=== PATIENT | male | born 1955 | race Caucasian/White ===

== ENCOUNTER 2016-06-27 14:47 | Inpatient (IN) | payer BC ==
--- NOTE | 2016-06-27 16:41 | PDOC ---
History of Present Illness - History of Present Illness Initial Comments: 06/27/16 17:18 Patient is a 61 year old male with significant medical hx of CAD, HTN, CHF, HLD , DM, cellulitis, and osteomyelitis, sent in by Dr. Alexander for admission for CHF. The patient complains of four weeks of worsening exertional dyspnea and an episode of chest pain. He states that his shortness of breath is also exacerbated when lying down at night. Yesterday the patient had an episode of chest pain that occurred while at rest and later resolved. The patient also complains of some increased lower extremity swelling. Denies fevers, chills, nausea, vomiting, abdominal pain, dizziness, cough, headache, or syncope. Patient was noted to have rising creatinine levels over the past year, from 1.2 to 2.2. PCP: Veda Alexander MD Social Hx: 5 pack per day smoker for most of his life, quit 18 months ago. Surgical Hx: gangrenous right second toe amputation <Christianne Edwards - Last Filed: 06/28/16 00:10> <Belia Ward - Last Filed: 06/29/16 02:43> - General Chief Complaint: Shortness of Breath Stated Complaint: SOB (PCP SENT) Time Seen by Provider: 06/27/16 16:36 Past History <Christianne Edwards - Last Filed: 06/28/16 00:10> - Past Medical History Anemia: No Asthma: No Cancer: No Cardiac Disorders: No CVA: No COPD: No CHF: No Dementia: No Diabetes: Yes GI Disorders: No Disorders: No HTN: Yes Hypercholesterolemia: Yes Liver Disease: No Seizures: No Thyroid Disease: No - Surgical History Abdominal Surgery: No Appendectomy: No Cardiac Surgery: No Cholecystectomy: No Lung Surgery: No Neurologic Surgery: No Orthopedic Surgery: No - Immunization History Immunization Up to Date: Yes - Psycho/Social/Smoking Cessation Hx Anxiety: No Suicidal Ideation: No Smoking Status: Yes Smoking History: Former smoker Have you smoked in the past 12 months: Yes Number of Cigarettes Smoked Daily: 10 Information on smoking cessation initiated: No 'Breaking Loose' booklet given: 04/10/15 Hx Alcohol Use: No Drug/Substance Use Hx: No Substance Use Type: None Hx Substance Use Treatment: No <Belia Ward - Last Filed: 06/29/16 02:43> - Past Medical History Allergies/Adverse Reactions: Allergies Allergy/AdvReac Type Severity Reaction Status Date / Time No Known Drug Allergies Allergy Verified 06/27/16 14:55 Home Medications: Ambulatory Orders Insulin (Novolog) [Novolog Flexpen -] 0 units SQ TIDAC #0 pen 08/07/13 Aspirin Coated [Ecotrin -] 81 mg PO DAILY tablet.ec 04/30/15 Canagliflozin [Invokana] 100 mg PO DAILY 06/28/16 Hydrochlorothiazide 25 mg PO DAILY 06/28/16 Insulin (Novolog 70/30) [Novolog Mix 70/30 Flexpen -] 40 units SQ BID 06/28/16 Lisinopril [Prinivil -] 40 mg PO DAILY 06/28/16 Metformin HCl 850 mg PO HS 06/28/16 Review of Systems - Review of Systems Comments:: 06/27/16 17:19 CONSTITUTIONAL: Absent: fever, chills, diaphoresis, generalized weakness, malaise, loss of appetite HEENT: Absent: rhinorrhea, nasal congestion, throat pain, throat swelling, difficulty swallowing, mouth swelling, ear pain, eye pain, visual changes CARDIOVASCULAR: Present: chest pain, peripheral edema Absent: syncope, palpitations, irregular heart rate, lightheadedness RESPIRATORY: Present: shortness of breath, dyspnea with exertion, orthopnea Absent: cough, wheezing, stridor, hemoptysis GASTROINTESTINAL: Absent: abdominal pain, abdominal distension, nausea, vomiting, diarrhea, constipation, melena, hematochezia GENITOURINARY: Absent: dysuria, frequency, urgency, hesitancy, hematuria, flank pain, genital pain MUSCULOSKELETAL: Absent: myalgia, arthralgia, joint swelling SKIN: Absent: rash, itching, pallor HEMATOLOGIC/IMMUNOLOGIC: Absent: easy bleeding, easy bruising, lymphadenopathy, frequent infections ENDOCRINE: Absent: unexplained weight gain, unexplained weight loss, heat intolerance, cold intolerance NEUROLOGIC: Absent: headache, focal weakness or paresthesia, dizziness, unsteady gait, seizure, mental status changes, bladder or bowel incontinence. PSYCHIATRIC: Absent: anxiety, depression, suicidal or homicidal ideation, hallucinations <Grace,Christianne - Last Filed: 06/28/16 00:10> *Physical Exam - Vital Signs Last Vital Signs Temp Pulse Resp BP Pulse Ox 97.7 F 94 H 18 128/82 100 06/27/16 14:55 06/27/16 14:55 06/27/16 14:55 06/27/16 14:55 06/27/16 14:55 - Physical Exam Comments: 06/27/16 17:20 GENERAL: Obese. Awake and alert. No acute distress. HEENT: Normocephalic, atraumatic. PERRLA, EOMI. No conjunctival pallor. Sclera are non- icteric. Moist mucous membranes. Oropharynx is clear. NECK: Supple. Full ROM. No JVD. Carotid pulses 2+ and symmetric, without bruits. No thyromegaly. No lymphadenopathy. CARDIOVASCULAR: Regular rate and rhythm. No murmurs, rubs, or gallops. Distal pulses are 2+ and symmetric. PULMONARY: No evidence of respiratory distress. Lungs clear to auscultation bilaterally. No wheezing, rales or rhonchi. ABDOMINAL: Protuberant. Soft. Non-tender. Non-distended. No rebound or guarding. No organomegaly. Normoactive bowel sounds. MUSCULOSKELETAL: Normal range of motion at all joints. No bony deformities or tenderness. No CVA tenderness. EXTREMITIES: Right foot second toe amputation. Wearing leg brace right leg for support. Left leg chronic venous stasis. Pitting edema lower extremities bilaterally. 4cm fluid filled bulla to the left lower extremity. SKIN: Warm and dry. Normal capillary refill. No rashes. No jaundice. NEUROLOGICAL: Alert, awake, appropriate. Cranial nerves 2-12 intact. Normal speech. Gait is normal without ataxia. PSYCHIATRIC: Cooperative. Good eye contact. Appropriate mood and affect. <Christianne Edwards - Last Filed: 06/28/16 00:10> - Vital Signs Last Vital Signs Temp Pulse Resp BP Pulse Ox 97.7 F 94 H 18 128/82 100 06/27/16 14:55 06/27/16 14:55 06/27/16 14:55 06/27/16 14:55 06/27/16 14:55 <Belia Ward - Last Filed: 06/29/16 02:43> Heart Score/ECG Review #1 06/27/16 20:53 Normal sinus rhythm at 80 bpm Right bundle branch block Inferior infarct, age undetermined Anterolateral infarct, age undetermined Abnormal ECG <Christianne Edwards - Last Filed: 06/28/16 00:10> ED Treatment Course - LABORATORY CBC & Chemistry Diagram: 06/27/16 17:20 06/27/16 17:20 - RADIOLOGY Radiograph Interpretation: 06/27/16 20:13 Chest X-Ray Impression: No acute cardiopulmonary disease is present. Reported By: Luis M Estrada MD <Christianne Edwards - Last Filed: 06/28/16 00:10> - LABORATORY CBC & Chemistry Diagram: 06/28/16 05:35 06/28/16 05:35 <Belia Ward - Last Filed: 06/29/16 02:43> Medical Decision Making - Medical Decision Making 06/29/16 02:41 61-year-old male referred to the emergency department for admission. Due to increasing dyspnea over the past month and reported chest pain one day prior to arrival. Upon arrival, he did not have any current chest pain Patient has significant history of diabetes, amputation of his right toes in the past, coronary artery disease Patient reported weight gain and increasing lower extremity edema. Chest x-ray shows some increased congestion. First troponin was positive. It was 0.84 Patient was admitted for management of congestive heart failure and to trend his cardiac enzymes <Belia Ward - Last Filed: 06/29/16 02:43> *DC/Admit/Observation/Transfer - Attestations Scribe Attestion: 06/27/16 17:28 Documentation prepared by Christianne Edwards, acting as mobile paramedical examiner for Belia Ward MD. <Christianne Edwards - Last Filed: 06/28/16 00:10> - Discharge Dispostion Admit: Yes <Belia Ward - Last Filed: 06/29/16 02:43> Diagnosis at time of Disposition: CKD (chronic kidney disease) stage 3, GFR 30-59 ml/min, Type 2 diabetes mellitus with peripheral neuropathy CHF (congestive heart failure) Qualifiers: Congestive heart failure type: unspecified congestive heart failure type Congestive heart failure chronicity: acute on chronic Qualified Code(s): I50.9 - Heart failure, unspecified Chest pain Qualifiers: Chest pain type: unspecified Qualified Code(s): R07.9 - Chest pain, unspecified - Referrals
[2016-06-27 17:33] LABS: BASOPHIL 0.9 % (0-2.0); EOSINOPHIL 4.3 % (0-4.5); MCH 27.8 pg (25.7-33.7); MCHC 32.5 g/dl (32.0-35.9); MEAN CELL VOLUME 85.8 fl (80-96); MEAN PLT VOLUME 9.2 fl (7.5-11.1); NEUTROPHILS 70.6 % (42.8-82.8); PLATELET COUNT 253 K/MM3 (134-434); RDW 15.1 % (11.9-15.9); WHITE BLOOD COUNT 10.7 K/mm3 (4.0-10.0)
[2016-06-27 17:58] LABS: ALBUMIN 3.7 g/dl (3.4-5.0); BILIRUBIN,TOTAL 0.3 mg/dL (0.2-1.0); COCKROFT - GAULT 69.82; CREATININE 1.9 mg/dL (0.7-1.3); TOT PROT 7.5 g/dl (6.4-8.2)
[2016-06-27 18:13] LABS: INR 1.01 (0.82-1.09); PROTHROMBIN TIME (PATIENT) 11.1 SEC (9.98-11.88)
[2016-06-27 18:21] LABS: TROPONIN I 0.84 ng/ml (0.00-0.05)
[2016-06-27] MEDS ORDERED: ASPIRIN 81 MG CHEWABLE TABLETS PO ONE (19:02)
[2016-06-27] MEDS ORDERED: ASPIRIN 325 MG TABLET ONE (19:37)
[2016-06-27] MEDS ORDERED: ACETAMINOPHEN 325 MG TABLET (FP) PO PRN (19:58)
[2016-06-27] MEDS ORDERED: SILVER SULFADIAZINE 1% TOP CREAM 50 GM JAR TP ONE (20:58)
[2016-06-27] MEDS ORDERED: ATORVASTATIN CA 80 MG TABLET (FP) ONE (22:18)
[2016-06-27] MEDS: ATORVASTATIN CA 80 MG TABLET (FP) PO SCH (22:28)
[2016-06-27] MEDS: INSULIN SLIDING SCALE (NOVOLOG) 1 VIAL SQ SCH (22:29)
[2016-06-27] MEDS ORDERED: INSULIN (NOVOLOG) ASPART 100 UNITS/ML 10ML VIAL ONE (22:30)
[2016-06-28] MEDS ORDERED: METOPROLOL TARTRATE 25 MG TABLET (FP) PO ONE (00:30)
[2016-06-28] MEDS ORDERED: HEPARIN NA (PORCINE) 5,000 UNITS/ML 1ML VIAL IVPUSH ONE (00:30)
[2016-06-28] MEDS ORDERED: HEPARIN NA (PORCINE) 5,000 UNITS/ML 1ML VIAL IVPUSH PRN ×2 (00:30)
[2016-06-28 01:00] VITALS: BMI 43.4
[2016-06-28] MEDS ORDERED: PNEUMOC 13-VAL CONJ-DIP CRM/PF 0.5 ML DISP.SYRIN IM ONE (01:00)
[2016-06-28] MEDS: HEPARIN INFUSION - 500 ML IVPB SCH ×2 (01:09→10:04)
[2016-06-28 01:10] LABS: TROPONIN I 0.85 ng/ml (0.00-0.05)
[2016-06-28] MEDS ORDERED: HEPARIN NA (PORCINE) 5,000 UNITS/ML 1ML VIAL SQ SCH (02:00)
[2016-06-28] MEDS: INSULIN SLIDING SCALE (NOVOLOG) 1 VIAL SQ SCH ×4 (06:31→21:54)
[2016-06-28] MEDS ORDERED: INSULIN (NOVOLOG MIX 70/30) 100 UNITS/ML MDV SQ SCH (07:00)
[2016-06-28 07:12] LABS: BASOPHIL 0.7 % (0-2.0); EOSINOPHIL 5.7 % (0-4.5); MCH 28.2 pg (25.7-33.7); MCHC 32.8 g/dl (32.0-35.9); MEAN CELL VOLUME 86.1 fl (80-96); MEAN PLT VOLUME 9.3 fl (7.5-11.1); NEUTROPHILS 65.7 % (42.8-82.8); PLATELET COUNT 222 K/MM3 (134-434); RDW 14.8 % (11.9-15.9); WHITE BLOOD COUNT 9.5 K/mm3 (4.0-10.0)
[2016-06-28 08:53] LABS: CALCIUM 8.9 mg/dL (8.5-10.1); COCKROFT - GAULT 76.81; CREATININE 1.9 mg/dL (0.7-1.3); MAGNESIUM 2.3 mg/dL (1.8-2.4); PHOSPHOROUS 4.2 mg/dL (2.5-4.9)
[2016-06-28 09:03] LABS: TROPONIN I 0.55 ng/ml (0.00-0.05)
[2016-06-28] MEDS ORDERED: PT OWN MED DRAWER 7, Y5N ONE ×2 (09:19→20:57)
[2016-06-28] MEDS: ASPIRIN COATED 81 MG TABLET.EC PO SCH (09:37)
[2016-06-28] MEDS: PANTOPRAZOLE 40 MG TABLET (FP) PO SCH (09:37)
[2016-06-28] MEDS ORDERED: FUROSEMIDE 40 MG TABLET (FP) PO SCH (10:00)
[2016-06-28] MEDS ORDERED: CLOPIDOGREL BISULFATE 75 MG TABLET (FP) PO SCH (10:00)
--- NOTE | 2016-06-28 10:47 | CON.CARD ---
Cardiology Consult (text) - Consultation Consultation Note: Chief Complaint: CP History of Present Illness: 61 yo with h/o HTN, HL, CAD s/p medically managed nstemi 2016 in setting of sepsis/wound infection, IDDM, followed by dr christie for DM neuropathy and wounds, PAD s/p LE stent and rt forefoot amputation, here with sob. Was lost to follow up after admit last year. Reestablished with a new PCP yesterday who sent him to the ER for further eval. + LE edema with weight gain progressive over months. Recent development of bullae, weeping, erythema. + sob, orthopnea progressive over the past few weeks. no cp, palps, dizziness, early satiety, abdominal distension, bleeding. + dry cough no f/c/s, n/v/d, nasal congestion, h/a. PMH/PSHx: per hpi, H/O osteomyelitis, toe amputation, corneal transplants social hx: 5 pack per day smoker for most of his life, quit 18 months ago. fam hx: Acute myocardial infarction Father of ID in 70s. Mother of ID at 69eg ros: per hpi Ambulatory Orders Insulin (Novolog) [Novolog Flexpen -] 0 units SQ TIDAC #0 pen 08/07/13 Aspirin Coated [Ecotrin -] 81 mg PO DAILY tablet.ec 04/30/15 Canagliflozin [Invokana] 100 mg PO DAILY 06/28/16 Hydrochlorothiazide 25 mg PO DAILY 06/28/16 Insulin (Novolog 70/30) [Novolog Mix 70/30 Flexpen -] 40 units SQ BID 06/28/16 Lisinopril [Prinivil -] 40 mg PO DAILY 06/28/16 Metformin HCl 850 mg PO HS 06/28/16 Current Medications Acetaminophen (Tylenol -) 650 mg PO Q4H PRN PRN Reason: FEVER OR PAIN Aspirin (Ecotrin -) 81 mg PO DAILY [facility] Last Admin: 06/28/16 09:37 Dose: 81 mg Atorvastatin Calcium (Lipitor -) 80 mg PO HS [facility] Last Admin: 06/27/16 22:28 Dose: 80 mg Clopidogrel Bisulfate (Plavix -) 75 mg PO DAILY [facility] Last Admin: 06/28/16 09:37 Dose: 75 mg Furosemide (Lasix -) 40 mg PO DAILY [facility] Last Admin: 06/28/16 09:37 Dose: 40 mg Heparin Sodium (Porcine) (Heparin -) 5,000 unit IVPUSH PRN PRN Last Admin: 06/28/16 10:01 Dose: 5,000 unit Heparin Sodium (Porcine) (Heparin -) 1,000 unit IVPUSH PRN PRN Heparin Sodium/Dextrose (Heparin Infusion -) 500 mls @ 20 mls/hr IVPB TITR IGGY ; 1,000 UNITS/HR PRN Reason: Protocol Last Admin: 06/28/16 10:04 Dose: 23 mls/hr Insulin Aspart (Novolog Vial Sliding Scale -) 1 vial SQ ACHS IGGY PRN Reason: Protocol Last Admin: 06/28/16 06:31 Dose: Not Given Insulin Aspart (Novolog Mix 70/30 Vial) 20 units SQ BIDAC IGGY Last Admin: 06/28/16 06:29 Dose: 20 units Pantoprazole Sodium (Protonix -) 40 mg PO DAILY [facility] Last Admin: 06/28/16 09:37 Dose: 40 mg Vital Signs - 24 hr 06/27/16 06/27/16 06/28/16 14:55 22:37 00:34 Temperature 97.7 F 97.6 F 97.6 F Pulse Rate 94 H 86 Pulse Rate [ 74 Right Radial] Respiratory 18 22 18 Rate Blood Pressure 128/82 144/92 Blood Pressure 130/70 [Right Arm] O2 Sat by Pulse 100 93 L 94 L Oximetry (%) 06/28/16 06/28/16 06:00 10:00 Temperature 97.7 F 98 F Pulse Rate 87 83 Pulse Rate [ Right Radial] Respiratory 18 20 Rate Blood Pressure 113/71 130/84 Blood Pressure [Right Arm] O2 Sat by Pulse Oximetry (%) Intake & Output 06/26/16 06/27/16 06/28/16 06/29/16 07:59 07:59 07:59 07:59 Intake Total 120 600 Balance 120 600 Weight 286 lb NAD, calm jvd tds, neck supple bibasilar rales, nl effort RRR nl s1, s2 no mrg + bs soft nt nd obese ext with 1+ edema to thigh venous stasis changes, bulla s/p LE amputation diminished LE pulses aaox3 no jaundice, diaphoresis CBC, BMP 06/28/16 05:35 06/28/16 05:35 Laboratory Tests 06/27/16 06/27/1617 17:20 17:20 17:20 Total Bilirubin 0.3 AST 19 D Alkaline Phosphatase 63 D Creatine Kinase 258 D Creatine Kinase Index 2.8 CK-MB (CK-2) 7.102 H Troponin I 0.84 H* D B-Natriuretic Peptide 1403.01 H Albumin 3.7 D 06/27/16 06/28/16 23:58 05:35 Total Bilirubin AST Alkaline Phosphatase Creatine Kinase 259 256 Creatine Kinase Index CK-MB (CK-2) Troponin I 0.85 H* 0.55 H D B-Natriuretic Peptide Albumin EKG: SR, RBBB, bline inferolateral q waves. no acute ischemic changes. tele: SR occ pvc CXR: report and images reviewed. bilateral increased interstitial lung markings. by my review also trace fluid in fissure, possible mild congestion. 06/2016 echo here: tds. Nl lv size/fn. RV not well seen. nl valves. 04/2015 echo [facility]: tds. nl lv/rv. 1+ mr 04/2015 dipyridamole stress [facility]: stach with RBBB, no further ekg changes. mod fixed apical defect with partial reversibility --> mod apical infarct with small area of periinfarct ischemia. inferobasal defect thought to be 2/2 attenuation. mild global HK, apical AK. EF 46% 61 yo with h/o HTN, HL, CAD s/p medically managed nstemi 2016 in setting of sepsis/wound infection, IDDM, followed by dr christie for DM neuropathy and wounds, PAD s/p LE stent and rt forefoot amputation, here with sob. CAD - prior history of medically managed nstemi 2016 (peak troponin 4) in setting of sepsis/wound infection. at that time cath was deferred due to active underlying infection - here with very mild troponin elevation (peak 0.85) in setting of renal disease with flat trend. Known underlying CAD. Not consistent with ACS. EKG without acute ischemic changes. No anginal sx's. OK to stop heparin and plavix. - con't asa, statin. start bb. - Once patient diuresed, would repeat stress test for risk stratification. Unclear at this time whether patient would be able to comply with DAPT, but if patient has 3vd may benefit from bypass. diastolic HF exacerbation - + volume overload, predominantly right sided congestion. In past diuresed with lasix 40 mg IV bid --> will initiate same regimen. - daily weights, bmp, i/o's. - monitor cr with diuresis. PAD s/p LE stent and rt forefoot amputation - con't asa, statin HTN - adding metoprolol as mentioned above. On prior admit had been on lisinopril. Holding now while K on higher end of normal and creatinine acutely worse. HL - statin
--- NOTE | 2016-06-28 10:50 | HP ---
Admitting History and Physical - Primary Care Physician PCP: Veda Alexander - Admission Chief Complaint: I'm short of breath History of Present Illness: Mr Duarte is a 61 year old male with history of diabetes with complications and CHF who presented from the office for shortness of breath. He says that his issues began in March after he underwent partial amputation of his right foot. After that he noticed he was getting very short of breath. He says he mainly noticed it when he was lying down or when he bent over. He would become very short of breath and cough. He felt that he had to cough up mucus but was unsuccessful. He tried OTC treatments like Vicks Vapor Rub without relief. After that he noticed he was having dyspnea on exertion. This was slowly progressive, he says at first he was able to do normal activities but it has progressed to he is unable to walk to the bathroom without becoming short of breath. He has also gained 60lbs which he attributes to a sedentary lifestyle after surgery. He says he had a small amount of chest pain on Monday but it was very short lived and has not recurred. He denies fevers, chills, passing out, nausea, vomiting, abdominal pain, diarrhea, constipation, difficulty or pain on urination, or swelling. History Source: Patient Limitations to Obtaining History: No Limitations - Past Medical History Cardiovascular: Yes: CAD, HTN, Hyperlipdemia Musculoskeletal: Yes: Other (H/O osteomyelitis) Endocrine: Yes: Diabetes Mellitus - Past Surgical History Past Surgical History: Yes: Amputation - Smoking History Smoking history: Former smoker Have you smoked in the past 12 months: Yes Aproximately how many cigarettes per day: 10 - Alcohol/Substance Use Hx Alcohol Use: No History of Substance Use: reports: None - Social History ADL: Independent History of Recent Travel: No Home Medications - Allergies Allergies/Adverse Reactions: Allergies Allergy/AdvReac Type Severity Reaction Status Date / Time No Known Drug Allergies Allergy Verified 06/27/16 14:55 - Home Medications Home Medications: Ambulatory Orders Insulin (Novolog) [Novolog Flexpen -] 0 units SQ TIDAC #0 pen 08/07/13 Aspirin Coated [Ecotrin -] 81 mg PO DAILY tablet.ec 04/30/15 Canagliflozin [Invokana] 100 mg PO DAILY 06/28/16 Hydrochlorothiazide 25 mg PO DAILY 06/28/16 Insulin (Novolog 70/30) [Novolog Mix 70/30 Flexpen -] 40 units SQ BID 06/28/16 Lisinopril [Prinivil -] 40 mg PO DAILY 06/28/16 Metformin HCl 850 mg PO HS 06/28/16 Family Disease History - Family Disease History Family Disease History: Heart Disease: Father, Mother Review of Systems Findings/Remarks: Full review of systems obtained, as per HPI and otherwise negative. Physical Examination Vital Signs: Vital Signs Temperature 98 F 06/28/16 10:00 Pulse Rate 83 06/28/16 10:00 Respiratory Rate 20 06/28/16 10:00 Blood Pressure 130/84 06/28/16 10:00 O2 Sat by Pulse Oximetry (%) 94 L 06/28/16 00:34 Constitutional: Yes: No Distress, Calm, Obese Cardiovascular: Yes: Regular Rate and Rhythm. No: Gallop, Murmur, Rub Respiratory: Yes: Regular, CTA Bilaterally, On Nasal O2. No: Rales, Rhonchi, Wheezes Gastrointestinal: Yes: Normal Bowel Sounds, Soft. No: Distention, Tenderness Extremities: Yes: Amputation Edema: Yes Edema: LLE: 1+, RLE: 1+ Labs: CBC, BMP 06/28/16 05:35 06/28/16 05:35 Imaging - Results Chest X-ray: Report Reviewed, Image Reviewed Problem List - Problems (1) NSTEMI (non-ST elevated myocardial infarction) Assessment/Plan: -patient presents with elevated troponins -admitted to telemetry -cardiology consulted and will see -started on heparin gtt -continue aspirin and plavix Code(s): I21.4 - NON-ST ELEVATION (NSTEMI) MYOCARDIAL INFARCTION (2) CHF (congestive heart failure) Assessment/Plan: -with symptoms consistent with CHF -however chest x-ray is normal and BNP lower than previous -also with CKD that is increased from last admission -continue oral lasix currently -consult cardiology and nephrology -daily weights and I/Os Code(s): I50.9 - HEART FAILURE, UNSPECIFIED Qualifiers: Congestive heart failure type: unspecified congestive heart failure type Congestive heart failure chronicity: acute on chronic Qualified Code(s): I50.9 - Heart failure, unspecified (3) CKD (chronic kidney disease) stage 3, GFR 30-59 ml/min Assessment/Plan: -increased from last admission -does not follow up as an outpatient -will need nephrology follow up -consult nephrology this admission -will continue lisinopril secondary to diabetes Code(s): N18.3 - CHRONIC KIDNEY DISEASE, STAGE 3 (MODERATE) (4) CAD (coronary artery disease) Assessment/Plan: -as above Code(s): I25.10 - ATHSCL HEART DISEASE OF [place] CORONARY ARTERY W/O ANG PCTRS Qualifiers: Coronary Disease-Associated Artery/Lesion type: [place] artery [place] vs. transplanted heart: [place] heart Associated angina: without angina Qualified Code(s): I25.10 - Atherosclerotic heart disease of [place] coronary artery without angina pectoris (5) Hyperlipidemia Assessment/Plan: -continue statin Code(s): E78.5 - HYPERLIPIDEMIA, UNSPECIFIED Qualifiers: Hyperlipidemia type: unspecified Qualified Code(s): E78.5 - Hyperlipidemia, unspecified (6) Hypertension Assessment/Plan: -continue lisinopril -on lasix Code(s): I10 - ESSENTIAL (PRIMARY) HYPERTENSION Qualifiers: Hypertension type: essential hypertension Qualified Code(s): I10 - Essential (primary) hypertension (7) PVD (peripheral vascular disease) Assessment/Plan: -continue aspirin and plavix Code(s): I73.9 - PERIPHERAL VASCULAR DISEASE, UNSPECIFIED (8) Diabetes mellitus Assessment/Plan: -continue home regimen -diabetic diet -FSBS and SSI Code(s): E11.9 - TYPE 2 DIABETES MELLITUS WITHOUT COMPLICATIONS Qualifiers: Diabetes mellitus type: type 2 Diabetes mellitus complication status: with kidney complications Diabetes mellitus complication detail: with chronic kidney disease Diabetes mellitus skilled nursing insulin use: with termite renewal inspector use Chronic kidney disease stage: stage 3 (moderate) Qualified Code(s): E11.22 - Type 2 diabetes mellitus with diabetic chronic kidney disease ; N18.3 - Chronic kidney disease, stage 3 (moderate); Z79.4 - alf (current ) use of insulin
--- NOTE | 2016-06-28 11:24 | EKG ---
Test Reason : Blood Pressure : / mmHG Vent. Rate : 080 BPM Atrial Rate : 080 BPM P-R Int : 194 ms QRS Dur : 124 ms QT Int : 386 ms P-R-T Axes : -06 049 041 degrees QTc Int : 445 ms NORMAL SINUS RHYTHM RIGHT BUNDLE BRANCH BLOCK ABNORMAL ECG WHEN COMPARED WITH ECG OF 24-APR-2015 07:48, NO SIGNIFICANT CHANGE WAS FOUND Confirmed by SHANA PATTERSON MD ([id number]) on 06/28/2016 11:23:59 AM Referred By: Confirmed By:SHANA PATTERSON MD
[2016-06-28] MEDS ORDERED: INSULIN (NOVOLOG) ASPART 100 UNITS/ML 10ML VIAL ONE ×3 (12:45→20:58)
[2016-06-28] MEDS: FUROSEMIDE 40 MG/4 ML INJECTABLE VIAL IVPUSH SCH (16:11)
[2016-06-28] MEDS: INSULIN (NOVOLOG MIX 70/30) 100 UNITS/ML MDV SQ SCH (16:51)
--- NOTE | 2016-06-28 18:50 | CONSULT ---
Consult - text type - Consultation Consultation Note: Renal Consul for MIREYA This is a 61 year old Gentleman with PMhx of CAD, IDDM, Diabetic Neuropathy, Hypertension who presented with SOB/EPSTEIN and LE edema and found to have acute CHF with BUN/Cr of 47/1.9 (baseline Cr 1.2). Pt denies any history of CKD. Prior EMR recoreds show MIREYA in the past with peak Cr of 2.1. Denies any history of Kidney stones. Denies any NSAID use. No recent contrast exposure. No flank pain. No recent Abx use. LE edema worsening over 1 week. Pt not on diuretics at home. Was on ACEi. Denies any change in urine output or quality of urine. Pt on IV lasix for management of diastolic HF. PMhx: as above Allergies: NDKA Family Hx: NC Social Hx: No T/A/D ROS: as per HPI Home Medications Medication Instructions Recorded Insulin (Novolog) [Novolog Flexpen 0 units SQ TIDAC #0 pen 08/07/13 -] Aspirin Coated [Ecotrin -] 81 mg PO DAILY tablet.ec 04/30/15 Canagliflozin [Invokana] 100 mg PO DAILY 06/28/16 Hydrochlorothiazide 25 mg PO DAILY 06/28/16 Insulin (Novolog 70/30) [Novolog 40 units SQ BID 06/28/16 Mix 70/30 Flexpen -] Lisinopril [Prinivil -] 40 mg PO DAILY 06/28/16 Metformin HCl 850 mg PO HS 06/28/16 Vital Signs Temperature 97.5 F L 06/28/16 14:05 Pulse Rate 85 06/28/16 14:05 Respiratory Rate 18 06/28/16 14:05 Blood Pressure 115/49 06/28/16 14:05 O2 Sat by Pulse Oximetry (%) 97 06/28/16 09:00 Intake & Output 06/25/16 06/26/16 06/27/16 06/28/16 23:59 23:59 23:59 23:59 Intake Total 1340 Balance 1340 Weight 260 lb 286 lb Gen: NAD, awake and alert. HEENT: NC/AT, MMM, No JVD, Neck supple CVS: RRR, No M/R Lungs: CTA, no rales or wheeze Abd: soft NT/ND. Obese Ext: 1-2+ edema in LE. Right TMA in dressing Neuro: AAOX3, no focal defects : No overt bladder distension CBC, BMP 06/28/16 05:35 06/28/16 05:35 Current Medications Acetaminophen (Tylenol -) 650 mg PO Q4H PRN PRN Reason: FEVER OR PAIN Aspirin (Ecotrin -) 81 mg PO DAILY [facility] Last Admin: 06/28/16 09:37 Dose: 81 mg Atorvastatin Calcium (Lipitor -) 80 mg PO HS [facility] Last Admin: 06/27/16 22:28 Dose: 80 mg Furosemide (Lasix Injection -) 40 mg IVPUSH BID@0600,1400 [facility] Last Admin: 06/28/16 16:11 Dose: 40 mg Insulin Aspart (Novolog Vial Sliding Scale -) 1 vial SQ ACHS [facility] PRN Reason: Protocol Last Admin: 06/28/16 16:51 Dose: Not Given Insulin Aspart (Novolog Mix 70/30 Vial) 40 units SQ BIDI [facility] Last Admin: 06/28/16 16:51 Dose: 40 units Lisinopril (Prinivil) 10 mg PO DAILY [facility] Metoprolol Succinate (Toprol Xl -) 25 mg PO DAILY [facility] Pt's Own Med (Non- Form) (Canagliflozin [Invokana] 100 Mg) 100 mg PO DAILY [facility] Pantoprazole Sodium (Protonix -) 40 mg PO DAILY [facility] Last Admin: 06/28/16 09:37 Dose: 40 mg A/P 61 year old Gentleman with PMhx of CAD, IDDM, Diabetic Neuropathy, Hypertension who presented with SOB/EPSTEIN and LE edema and found to have acute CHF with BUN/Cr of 47/1.9 (baseline Cr 1.2). #Acute Renal Insufficiency in setting of Diastolic CHF and volume overload Likely related to renal hypoperfusion in setting of CHF Check Urine studies Check Renal US Continue IV Lasix BID as per Cardiology Avoid IV Contrast, NSAIDs at this time Dose all meds for Cr Cl less then 40 Hold ACEi for now Serum Eiosinophils are elevated? AIN however less likely #Acute HF Cardiology following Continue IV lasix Continue Beta Lars hold ACEi for now #LE wound/PVD wound care #DM continue Insulin as per primary Thank you Shamir Reynoso DO
[2016-06-28] MEDS: METOPROLOL SUCCINATE 25 MG TAB.SR.24H (FP) PO SCH (19:48)
[2016-06-28] MEDS: ATORVASTATIN CA 80 MG TABLET (FP) PO SCH (21:51)
[2016-06-28 22:21] LABS: URINE APPEARANCE CLEAR; URINE BILIRUBIN NEGATIVE (NEGATIVE); URINE BLOOD NEGATIVE (NEGATIVE); URINE COLOR STRAW; URINE GLUCOSE (UA) 1+ (NEGATIVE); URINE KETONE NEGATIVE (NEGATIVE); URINE LEUK ESTERASE NEGATIVE (NEGATIVE); URINE NITRITE NEGATIVE (NEGATIVE); URINE PROTEIN NEGATIVE (NEGATIVE); URINE UROBILINOGEN NEGATIVE E.U./dl (0.2-1.0)
[2016-06-28 23:30] LABS: URINE CREATININE 66.1 mg/dL (20-370)
[2016-06-29] MEDS: INSULIN SLIDING SCALE (NOVOLOG) 1 VIAL SQ SCH ×4 (06:27→21:50)
[2016-06-29] MEDS: FUROSEMIDE 40 MG/4 ML INJECTABLE VIAL IVPUSH SCH ×2 (06:27→13:37)
[2016-06-29 09:07] LABS: CALCIUM 8.5 mg/dL (8.5-10.1); COCKROFT - GAULT 72.97; MAGNESIUM 2.4 mg/dL (1.8-2.4); PHOSPHOROUS 4.6 mg/dL (2.5-4.9)
[2016-06-29] MEDS: METOPROLOL SUCCINATE 25 MG TAB.SR.24H (FP) PO SCH (09:07)
[2016-06-29] MEDS: [UNRECOGNIZED DRUG - REMARK] PO SCH (09:07)
[2016-06-29] MEDS: PANTOPRAZOLE 40 MG TABLET (FP) PO SCH (09:07)
[2016-06-29] MEDS: INSULIN (NOVOLOG MIX 70/30) 100 UNITS/ML MDV SQ SCH ×2 (09:07→17:58)
[2016-06-29] MEDS: ASPIRIN COATED 81 MG TABLET.EC PO SCH (09:07)
[2016-06-29] MEDS ORDERED: LISINOPRIL 20 MG TABLET (FP) PO SCH (10:00)
[2016-06-29] MEDS ORDERED: LISINOPRIL 10 MG TABLET (FP) PO SCH (10:00)
--- NOTE | 2016-06-29 10:27 | PN ---
Progress Note (short form) - Note Progress Note: s: no cp palps dizzy; sob improving, le edema improving o: Vital Signs Period Temp Pulse Resp BP Sys/Peter Pulse Ox Last 24 Hr 97.4 F-98.5 F 65-85 18-20 106-125/49-70 96 NAD, calm jvd tds, neck supple bibasilar rales, nl effort RRR nl s1, s2 no mrg + bs soft nt nd obese ext with 1+ edema to thigh venous stasis changes, bulla s/p LE amputation aaox3 no jaundice, diaphoresis Current Medications Generic Name Dose Route Start Last Admin Trade Name Freq PRN Reason Stop Dose Admin Acetaminophen 650 mg 06/27/16 19:58 Tylenol - PO Q4H PRN FEVER OR PAIN Aspirin 81 mg 06/28/16 10:00 06/29/16 09:07 Ecotrin - PO 81 mg DAILY [facility] Administration Atorvastatin Calcium 80 mg 06/27/16 22:00 06/28/16 21:51 Lipitor - PO 80 mg HS [facility] Administration Furosemide 40 mg 06/28/16 15:00 06/29/16 06:27 Lasix Injection - IVPUSH 40 mg BID@0600,1400 [facility] Administration Insulin Aspart 1 vial 06/27/16 22:00 06/29/16 06:27 Novolog Vial Sliding Scale - SQ Not Given ACHS [facility] Protocol Insulin Aspart 40 units 06/28/16 16:30 06/29/16 09:07 Novolog Mix 70/30 Vial SQ 40 units BIDI [facility] Administration Metoprolol Succinate 25 mg 06/28/16 18:00 06/29/16 09:07 Toprol Xl - PO 25 mg DAILY [facility] Administration Pt's Own Med (Non- 100 mg 06/29/16 10:00 06/29/16 09:07 Form) (Canagliflozin PO 100 mg [Invokana] 100 Mg) DAILY [facility] Administration Pantoprazole Sodium 40 mg 06/28/16 10:00 06/29/16 09:07 Protonix - PO 40 mg DAILY [facility] Administration CBC, BMP 06/28/16 05:35 06/29/16 05:38 EKG: SR, RBBB, bline inferolateral q waves. no acute ischemic changes. tele: SR occ pvc CXR: report and images reviewed. bilateral increased interstitial lung markings. by my review also trace fluid in fissure, possible mild congestion. 06/2016 echo here: tds. Nl lv size/fn. RV not well seen. nl valves. 04/2015 echo [facility]: tds. nl lv/rv. 1+ mr 04/2015 dipyridamole stress SJR: stach with RBBB, no further ekg changes. mod fixed apical defect with partial reversibility --> mod apical infarct with small area of periinfarct ischemia. inferobasal defect thought to be 2/2 attenuation. mild global HK, apical AK. EF 46% a/p: 61 yo with h/o HTN, HL, CAD s/p medically managed nstemi 2016 in setting of sepsis/wound infection, IDDM, followed by dr christie for DM neuropathy and wounds, PAD s/p LE stent and rt forefoot amputation, here with sob. CAD - prior history of medically managed nstemi 2015 (peak troponin 4) in setting of sepsis/wound infection. at that time cath was deferred due to active underlying infection - here with very mild troponin elevation (peak 0.85) in setting of renal disease with flat trend. Known underlying CAD. Not consistent with ACS. EKG without acute ischemic changes. No anginal sx's. OK to stop heparin and plavix. - con't asa, statin. start bb. - Once patient diuresed, would repeat stress test for risk stratification. Unclear at this time whether patient would be able to comply with DAPT, but if patient has 3vd may benefit from bypass. diastolic HF exacerbation - + volume overload, predominantly right sided congestion. In past diuresed with lasix 40 mg IV bid --> have initiated the same regimen here. - diuresing well, continue same lasix - daily weights, bmp, i/o's. - monitor cr with diuresis. PAD s/p LE stent and rt forefoot amputation - con't asa, statin HTN -cont bb. holding shawanda-i while with sulema. HL - cont statin
--- NOTE | 2016-06-29 13:27 | PN ---
Progress Note (short form) - Note Progress Note: Renal Follow up for MIREYA Pt seen and examined at the bedside feels better denies any sob, chest pain, abd pain, N/v/D Vital Signs Temperature 97.7 F 06/29/16 06:00 Pulse Rate 71 06/29/16 10:45 Respiratory Rate 18 06/29/16 09:00 Blood Pressure 110/76 06/29/16 09:00 O2 Sat by Pulse Oximetry (%) 96 06/29/16 10:45 Intake & Output 06/26/16 06/27/16 06/28/16 06/29/16 23:59 23:59 23:59 23:59 Intake Total 1640 730 Balance 1640 730 Weight 260 lb 286 lb Gen: NAD, awake and alert. CVS: RRR, No M/R Lungs: CTA, no rales or wheeze Abd: soft NT/ND. Obese Ext: 1-2+ edema in LE. Right TMA in dressing CBC, BMP 06/28/16 05:35 06/29/16 05:38 Laboratory Tests 06/29/16 05:38 Calcium 8.5 Phosphorus 4.6 Magnesium 2.4 Current Medications Acetaminophen (Tylenol -) 650 mg PO Q4H PRN PRN Reason: FEVER OR PAIN Aspirin (Ecotrin -) 81 mg PO DAILY [facility] Last Admin: 06/29/16 09:07 Dose: 81 mg Atorvastatin Calcium (Lipitor -) 80 mg PO HS [facility] Last Admin: 06/28/16 21:51 Dose: 80 mg Furosemide (Lasix Injection -) 40 mg IVPUSH BID@0600,1400 [facility] Last Admin: 06/29/16 06:27 Dose: 40 mg Insulin Aspart (Novolog Vial Sliding Scale -) 1 vial SQ ACHS [facility] PRN Reason: Protocol Last Admin: 06/29/16 12:07 Dose: Not Given Insulin Aspart (Novolog Mix 70/30 Vial) 40 units SQ BIDI [facility] Last Admin: 06/29/16 09:07 Dose: 40 units Metoprolol Succinate (Toprol Xl -) 25 mg PO DAILY [facility] Last Admin: 06/29/16 09:07 Dose: 25 mg Pt's Own Med (Non- Form) (Canagliflozin [Invokana] 100 Mg) 100 mg PO DAILY [facility] Last Admin: 06/29/16 09:07 Dose: 100 mg Pantoprazole Sodium (Protonix -) 40 mg PO DAILY [facility] Last Admin: 06/29/16 09:07 Dose: 40 mg A/P 61 year old Gentleman with PMhx of CAD, IDDM, Diabetic Neuropathy, Hypertension who presented with SOB/EPSTEIN and LE edema and found to have acute CHF with BUN/Cr of 47/1.9 (baseline Cr 1.2). #Acute Renal Insufficiency in setting of Diastolic CHF and volume overload Likely related to renal hypoperfusion in setting of CHF Urine studies consisent with pre-renal state No significant proteinuria noted continue Lasix 40mg IV BID Trend BUN/Cr #Acute HF Cardiology following Continue IV lasix Continue Beta Lars hold ACEi for now (can restart if renal function returns to baseline) #LE wound/PVD wound care #DM continue Insulin as per primary Thank you Shamir Reynoso DO
--- NOTE | 2016-06-29 14:49 | PN ---
Progress Note, Physician Chief Complaint: Mr Duarte says he is feeling better. Says he is breathing is improving but not at baseline. No cp or n/v. - Current Medication List Current Medications: Active Medications Acetaminophen (Tylenol -) 650 mg PO Q4H PRN PRN Reason: FEVER OR PAIN Aspirin (Ecotrin -) 81 mg PO DAILY [facility] Last Admin: 06/29/16 09:07 Dose: 81 mg Atorvastatin Calcium (Lipitor -) 80 mg PO HS [facility] Last Admin: 06/28/16 21:51 Dose: 80 mg Furosemide (Lasix Injection -) 40 mg IVPUSH BID@0600,1400 [facility] Last Admin: 06/29/16 13:37 Dose: Not Given Insulin Aspart (Novolog Vial Sliding Scale -) 1 vial SQ ACHS [facility] PRN Reason: Protocol Last Admin: 06/29/16 12:07 Dose: Not Given Insulin Aspart (Novolog Mix 70/30 Vial) 40 units SQ BIDI [facility] Last Admin: 06/29/16 09:07 Dose: 40 units Metoprolol Succinate (Toprol Xl -) 25 mg PO DAILY [facility] Last Admin: 06/29/16 09:07 Dose: 25 mg Pt's Own Med (Non- Form) (Canagliflozin [Invokana] 100 Mg) 100 mg PO DAILY [facility] Last Admin: 06/29/16 09:07 Dose: 100 mg Pantoprazole Sodium (Protonix -) 40 mg PO DAILY [facility] Last Admin: 06/29/16 09:07 Dose: 40 mg - Objective Vital Signs: Vital Signs Temperature 97.7 F 06/29/16 06:00 Pulse Rate 71 06/29/16 10:45 Respiratory Rate 18 06/29/16 09:00 Blood Pressure 110/76 06/29/16 09:00 O2 Sat by Pulse Oximetry (%) 96 06/29/16 10:45 Constitutional: Yes: No Distress, Calm, Obese Cardiovascular: Yes: Regular Rate and Rhythm. No: Gallop, Murmur, Rub Respiratory: Yes: Regular, CTA Bilaterally. No: Rales, Rhonchi, Wheezes Gastrointestinal: Yes: Normal Bowel Sounds, Soft. No: Distention, Tenderness Extremities: Yes: Amputation Edema: Yes Edema: LLE: 1+, RLE: 1+ Labs: CBC, BMP 06/28/16 05:35 06/29/16 05:38 INR, PTT INR 1.01 (0.82-1.09) 06/27/16 17:20 Problem List - Problems (1) NSTEMI (non-ST elevated myocardial infarction) Code(s): I21.4 - NON-ST ELEVATION (NSTEMI) MYOCARDIAL INFARCTION (2) CHF (congestive heart failure) Code(s): I50.9 - HEART FAILURE, UNSPECIFIED Qualifiers: Congestive heart failure type: unspecified congestive heart failure type Congestive heart failure chronicity: acute on chronic Qualified Code(s ): I50.9 - Heart failure, unspecified (3) CKD (chronic kidney disease) stage 3, GFR 30-59 ml/min Code(s): N18.3 - CHRONIC KIDNEY DISEASE, STAGE 3 (MODERATE) (4) CAD (coronary artery disease) Code(s): I25.10 - ATHSCL HEART DISEASE OF [place] CORONARY ARTERY W/O ANG PCTRS Qualifiers: Coronary Disease-Associated Artery/Lesion type: [place] artery [place] vs. transplanted heart: [place] heart Associated angina: without angina Qualified Code(s): I25.10 - Atherosclerotic heart disease of [place] coronary artery without angina pectoris (5) Hyperlipidemia Code(s): E78.5 - HYPERLIPIDEMIA, UNSPECIFIED Qualifiers: Hyperlipidemia type: unspecified Qualified Code(s): E78.5 - Hyperlipidemia, unspecified (6) Hypertension Code(s): I10 - ESSENTIAL (PRIMARY) HYPERTENSION Qualifiers: Hypertension type: essential hypertension Qualified Code(s): I10 - Essential (primary) hypertension (7) PVD (peripheral vascular disease) Code(s): I73.9 - PERIPHERAL VASCULAR DISEASE, UNSPECIFIED (8) Diabetes mellitus Code(s): E11.9 - TYPE 2 DIABETES MELLITUS WITHOUT COMPLICATIONS Qualifiers: Diabetes mellitus type: type 2 Diabetes mellitus complication status: with kidney complications Diabetes mellitus complication detail: with chronic kidney disease Diabetes mellitus prison insulin use: with prison use Chronic kidney disease stage: stage 3 (moderate) Qualified Code(s): E11.22 - Type 2 diabetes mellitus with diabetic chronic kidney disease ; N18.1 - Chronic kidney disease, stage 1; Z79.4 - technician terminal and repeater (current) use of insulin Assessment/Plan (1) NSTEMI (non-ST elevated myocardial infarction) Assessment/Plan: -appreciate cardiology assistance -case reviewed, felt not to be an NSTEMI -heparin and plavix stopped Code(s): I21.4 - NON-ST ELEVATION (NSTEMI) MYOCARDIAL INFARCTION (2) CHF (congestive heart failure) Assessment/Plan: -cardiology following and note reviewed -on IV lasix -weights and I/Os inaccurately recorded in the computer but patient feeling improved -continue IV lasix, patient says he had 60 lbs weight gain as an outpatient [place] HEART FAILURE, UNSPECIFIED Qualifiers: Congestive heart failure type: unspecified congestive heart failure type Congestive heart failure chronicity: acute on chronic Qualified Code(s): I50.9 - Heart failure, unspecified (3) CKD (chronic kidney disease) stage 3, GFR 30-59 ml/min Assessment/Plan: -increased from last admission -appreciate nephrology assistance -lisinopril stopped -continue to monitor -renal ultrasound reviewed Code(s): N18.3 - CHRONIC KIDNEY DISEASE, STAGE 3 (MODERATE) (4) CAD (coronary artery disease) Assessment/Plan: -as above Code(s): I25.10 - ATHSCL HEART DISEASE OF [place] CORONARY ARTERY W/O ANG PCTRS Qualifiers: Coronary Disease-Associated Artery/Lesion type: [place] artery [place] vs. transplanted heart: [place] heart Associated angina: without angina Qualified Code(s): I25.10 - Atherosclerotic heart disease of [place] coronary artery without angina pectoris (5) Hyperlipidemia Assessment/Plan: -continue statin Code(s): E78.5 - HYPERLIPIDEMIA, UNSPECIFIED Qualifiers: Hyperlipidemia type: unspecified Qualified Code(s): E78.5 - Hyperlipidemia, unspecified (6) Hypertension Assessment/Plan: -on lasix Code(s): I10 - ESSENTIAL (PRIMARY) HYPERTENSION Qualifiers: Hypertension type: essential hypertension Qualified Code(s): I10 - Essential (primary) hypertension (7) PVD (peripheral vascular disease) Assessment/Plan: -continue aspirin Code(s): I73.9 - PERIPHERAL VASCULAR DISEASE, UNSPECIFIED (8) Diabetes mellitus Assessment/Plan: -continue home regimen -diabetic diet -FSBS and SSI Code(s): E11.9 - TYPE 2 DIABETES MELLITUS WITHOUT COMPLICATIONS Qualifiers: Diabetes mellitus type: type 2 Diabetes mellitus complication status: with kidney complications Diabetes mellitus complication detail: with chronic kidney disease Diabetes mellitus terminal carman insulin use: with terminal carman use Chronic kidney disease stage: stage 3 (moderate) Qualified Code(s): E11.22 - Type 2 diabetes mellitus with diabetic chronic kidney disease ; N18.3 - Chronic kidney disease, stage 3 (moderate); Z79.4 - USP (current ) use of insulin
[2016-06-29] MEDS ORDERED: INSULIN (NOVOLOG) ASPART 100 UNITS/ML 10ML VIAL ONE (17:58)
[2016-06-29] MEDS: ATORVASTATIN CA 80 MG TABLET (FP) PO SCH (21:51)
[2016-06-30] MEDS ORDERED: INSULIN (NOVOLOG) ASPART 100 UNITS/ML 10ML VIAL ONE ×3 (06:25→17:32)
[2016-06-30] MEDS: INSULIN SLIDING SCALE (NOVOLOG) 1 VIAL SQ SCH ×4 (06:32→22:23)
[2016-06-30] MEDS: FUROSEMIDE 40 MG/4 ML INJECTABLE VIAL IVPUSH SCH ×2 (06:37→14:36)
[2016-06-30 06:40] LABS: BASOPHIL 0.7 % (0-2.0); EOSINOPHIL 5.9 % (0-4.5); MCH 28.3 pg (25.7-33.7); MCHC 32.8 g/dl (32.0-35.9); MEAN CELL VOLUME 86.3 fl (80-96); MEAN PLT VOLUME 8.7 fl (7.5-11.1); NEUTROPHILS 67.9 % (42.8-82.8); PLATELET COUNT 225 K/MM3 (134-434); RDW 14.7 % (11.9-15.9); WHITE BLOOD COUNT 8.4 K/mm3 (4.0-10.0)
[2016-06-30 06:51] LABS: CALCIUM 8.6 mg/dL (8.5-10.1); COCKROFT - GAULT 68.58; CREATININE 2.1 mg/dL (0.7-1.3); MAGNESIUM 2.5 mg/dL (1.8-2.4); PHOSPHOROUS 4.7 mg/dL (2.5-4.9)
[2016-06-30] MEDS: INSULIN (NOVOLOG MIX 70/30) 100 UNITS/ML MDV SQ SCH ×2 (07:06→17:45)
[2016-06-30] MEDS: PANTOPRAZOLE 40 MG TABLET (FP) PO SCH (09:08)
[2016-06-30] MEDS: METOPROLOL SUCCINATE 25 MG TAB.SR.24H (FP) PO SCH (09:08)
[2016-06-30] MEDS: [UNRECOGNIZED DRUG - REMARK] PO SCH (09:08)
[2016-06-30] MEDS: ASPIRIN COATED 81 MG TABLET.EC PO SCH (09:08)
--- NOTE | 2016-06-30 10:45 | PN ---
Progress Note (short form) - Note Progress Note: s: no cp palps dizzy; sob improving, le edema improving o: Vital Signs Period Temp Pulse Resp BP Sys/Peter Pulse Ox Last 24 Hr 97.5 F-98.7 F 71-75 18-20 91-126/44-74 96-98 NAD, calm jvd tds, neck supple bibasilar rales, nl effort RRR nl s1, s2 no mrg + bs soft nt nd obese ext with trace-1+ edema to thigh venous stasis changes, bulla s/p LE amputation aaox3 no jaundice, diaphoresis Current Medications Generic Name Dose Route Start Last Admin Trade Name Freq PRN Reason Stop Dose Admin Acetaminophen 650 mg 06/27/16 19:58 Tylenol - PO Q4H PRN FEVER OR PAIN Aspirin 81 mg 06/28/16 10:00 06/30/16 09:08 Ecotrin - PO 81 mg DAILY [facility] Administration Atorvastatin Calcium 80 mg 06/27/16 22:00 06/29/16 21:51 Lipitor - PO 80 mg HS [facility] Administration Furosemide 40 mg 06/28/16 15:00 06/30/16 06:37 Lasix Injection - IVPUSH 40 mg BID@0600,1400 [facility] Administration Insulin Aspart 1 vial 06/27/16 22:00 06/30/16 06:32 Novolog Vial Sliding Scale - SQ Not Given ACHS [facility] Protocol Insulin Aspart 40 units 06/28/16 16:30 06/30/16 07:06 Novolog Mix 70/30 Vial SQ Not Given BIDI [facility] Metoprolol Succinate 25 mg 06/28/16 18:00 06/30/16 09:08 Toprol Xl - PO 25 mg DAILY [facility] Administration Pt's Own Med (Non- 100 mg 06/29/16 10:00 06/30/16 09:08 Form) (Canagliflozin PO 100 mg [Invokana] 100 Mg) DAILY [facility] Administration Pantoprazole Sodium 40 mg 06/28/16 10:00 06/30/16 09:08 Protonix - PO 40 mg DAILY [facility] Administration CBC, BMP 06/30/16 05:35 06/30/16 05:35 EKG: SR, RBBB, bline inferolateral q waves. no acute ischemic changes. tele: SR occ pvc CXR: report and images reviewed. bilateral increased interstitial lung markings. by my review also trace fluid in fissure, possible mild congestion. 06/2016 echo here: tds. Nl lv size/fn. RV not well seen. nl valves. 04/2015 echo [facility]: tds. nl lv/rv. 1+ mr 04/2015 dipyridamole stress S[facility]: stach with RBBB, no further ekg changes. mod fixed apical defect with partial reversibility --> mod apical infarct with small area of periinfarct ischemia. inferobasal defect thought to be 2/2 attenuation. mild global HK, apical AK. EF 46% a/p: 61 yo with h/o HTN, HL, CAD s/p medically managed nstemi 2016 in setting of sepsis/wound infection, IDDM, followed by dr christie for DM neuropathy and wounds, PAD s/p LE stent and rt forefoot amputation, here with sob. CAD - prior history of medically managed nstemi 2015 (peak troponin 4) in setting of sepsis/wound infection. at that time cath was deferred due to active underlying infection - here with very mild troponin elevation (peak 0.85) in setting of renal disease with flat trend. Known underlying CAD. Not consistent with ACS. EKG without acute ischemic changes. No anginal sx's. OK to stop heparin and plavix. - con't asa, statin. start bb. - Once patient diuresed, would repeat stress test for risk stratification. Unclear at this time whether patient would be able to comply with DAPT, but if patient has 3vd may benefit from bypass. diastolic HF exacerbation - + volume overload, predominantly right sided congestion. In past diuresed with lasix 40 mg IV bid --> have initiated the same regimen here. - diuresing well, wt down today, continue IV lasix - daily weights, bmp, i/o's. - monitor cr with diuresis. PAD s/p LE stent and rt forefoot amputation - con't asa, statin HTN -cont bb. holding shawanda-i while with sulema. HL - cont statin ckd/sulema: -monitor with diuresis
--- NOTE | 2016-06-30 10:55 | PN ---
Progress Note, Physician Chief Complaint: Mr Duarte continues to feel better. He is not short of breath. Denies chest pain and nausea/vomiting. - Current Medication List Current Medications: Active Medications Acetaminophen (Tylenol -) 650 mg PO Q4H PRN PRN Reason: FEVER OR PAIN Aspirin (Ecotrin -) 81 mg PO DAILY [facility] Last Admin: 06/30/16 09:08 Dose: 81 mg Atorvastatin Calcium (Lipitor -) 80 mg PO HS [facility] Last Admin: 06/29/16 21:51 Dose: 80 mg Furosemide (Lasix Injection -) 40 mg IVPUSH BID@0600,1400 [facility] Last Admin: 06/30/16 06:37 Dose: 40 mg Insulin Aspart (Novolog Vial Sliding Scale -) 1 vial SQ ACHS [facility] PRN Reason: Protocol Last Admin: 06/30/16 06:32 Dose: Not Given Insulin Aspart (Novolog Mix 70/30 Vial) 40 units SQ BIDI [facility] Last Admin: 06/30/16 07:06 Dose: Not Given Metoprolol Succinate (Toprol Xl -) 25 mg PO DAILY [facility] Last Admin: 06/30/16 09:08 Dose: 25 mg Pt's Own Med (Non- Form) (Canagliflozin [Invokana] 100 Mg) 100 mg PO DAILY [facility] Last Admin: 06/30/16 09:08 Dose: 100 mg Pantoprazole Sodium (Protonix -) 40 mg PO DAILY [facility] Last Admin: 06/30/16 09:08 Dose: 40 mg - Objective Vital Signs: Vital Signs Temperature 98.1 F 06/30/16 09:15 Pulse Rate 72 06/30/16 09:15 Respiratory Rate 20 06/30/16 09:15 Blood Pressure 126/74 06/30/16 09:15 O2 Sat by Pulse Oximetry (%) 98 06/30/16 09:00 Constitutional: Yes: No Distress, Calm, Obese Cardiovascular: Yes: Regular Rate and Rhythm. No: Gallop, Murmur, Rub Respiratory: Yes: Regular, CTA Bilaterally. No: Rales, Rhonchi, Wheezes Gastrointestinal: Yes: Normal Bowel Sounds, Soft. No: Distention, Tenderness Extremities: Yes: WNL Edema: Yes Edema: LLE: 2+, RLE: 2+ Labs: CBC, BMP 06/30/16 05:35 06/30/16 05:35 INR, PTT INR 1.01 (0.82-1.09) 06/27/16 17:20 Problem List - Problems (1) NSTEMI (non-ST elevated myocardial infarction) Code(s): I21.4 - NON-ST ELEVATION (NSTEMI) MYOCARDIAL INFARCTION (2) CHF (congestive heart failure) Code(s): I50.9 - HEART FAILURE, UNSPECIFIED Qualifiers: Congestive heart failure type: diastolic Congestive heart failure chronicity: acute on chronic Qualified Code(s): I50.33 - Acute on chronic diastolic (congestive) heart failure (3) CKD (chronic kidney disease) stage 3, GFR 30-59 ml/min Code(s): N18.3 - CHRONIC KIDNEY DISEASE, STAGE 3 (MODERATE) (4) CAD (coronary artery disease) Code(s): I25.10 - ATHSCL HEART DISEASE OF [place] CORONARY ARTERY W/O ANG PCTRS Qualifiers: Coronary Disease-Associated Artery/Lesion type: [place] artery [place] vs. transplanted heart: [place] heart Associated angina: without angina Qualified Code(s): I25.10 - Atherosclerotic heart disease of [place] coronary artery without angina pectoris (5) Hyperlipidemia Code(s): E78.5 - HYPERLIPIDEMIA, UNSPECIFIED Qualifiers: Hyperlipidemia type: unspecified Qualified Code(s): E78.5 - Hyperlipidemia, unspecified (6) Hypertension Code(s): I10 - ESSENTIAL (PRIMARY) HYPERTENSION Qualifiers: Hypertension type: essential hypertension Qualified Code(s): I10 - Essential (primary) hypertension (7) PVD (peripheral vascular disease) Code(s): I73.9 - PERIPHERAL VASCULAR DISEASE, UNSPECIFIED (8) Diabetes mellitus Code(s): E11.9 - TYPE 2 DIABETES MELLITUS WITHOUT COMPLICATIONS Qualifiers: Diabetes mellitus type: type 2 Diabetes mellitus complication status: with kidney complications Diabetes mellitus complication detail: with chronic kidney disease Diabetes mellitus skilled nursing insulin use: with skilled nursing use Chronic kidney disease stage: stage 3 (moderate) Qualified Code(s): E11.22 - Type 2 diabetes mellitus with diabetic chronic kidney disease ; N18.1 - Chronic kidney disease, stage 1; Z79.4 - terminal system operator (current) use of insulin Assessment/Plan (1) NSTEMI (non-ST elevated myocardial infarction) Assessment/Plan: -appreciate cardiology assistance -case reviewed, felt not to be an NSTEMI -heparin and plavix stopped Code(s): I21.4 - NON-ST ELEVATION (NSTEMI) MYOCARDIAL INFARCTION (2) CHF (congestive heart failure) Assessment/Plan: -continues to diurese -down 4lbs -continue IV lasix per cardiology [place] HEART FAILURE, UNSPECIFIED Qualifiers: Congestive heart failure type: unspecified congestive heart failure type Congestive heart failure chronicity: acute on chronic Qualified Code(s): I50.9 - Heart failure, unspecified (3) CKD (chronic kidney disease) stage 3, GFR 30-59 ml/min Assessment/Plan: -nephrology following -slightly increased today -continue to monitor -lisinopril stopped this admission secondary to renal function Code(s): N18.3 - CHRONIC KIDNEY DISEASE, STAGE 3 (MODERATE) (4) CAD (coronary artery disease) Assessment/Plan: -as above Code(s): I25.10 - ATHSCL HEART DISEASE OF [place] CORONARY ARTERY W/O ANG PCTRS Qualifiers: Coronary Disease-Associated Artery/Lesion type: [place] artery [place] vs. transplanted heart: [place] heart Associated angina: without angina Qualified Code(s): I25.10 - Atherosclerotic heart disease of [place] coronary artery without angina pectoris (5) Hyperlipidemia Assessment/Plan: -continue statin Code(s): E78.5 - HYPERLIPIDEMIA, UNSPECIFIED Qualifiers: Hyperlipidemia type: unspecified Qualified Code(s): E78.5 - Hyperlipidemia, unspecified (6) Hypertension Assessment/Plan: -on lasix Code(s): I10 - ESSENTIAL (PRIMARY) HYPERTENSION Qualifiers: Hypertension type: essential hypertension Qualified Code(s): I10 - Essential (primary) hypertension (7) PVD (peripheral vascular disease) Assessment/Plan: -continue aspirin Code(s): I73.9 - PERIPHERAL VASCULAR DISEASE, UNSPECIFIED (8) Diabetes mellitus Assessment/Plan: -continue home regimen -diabetic diet -FSBS and SSI Code(s): E11.9 - TYPE 2 DIABETES MELLITUS WITHOUT COMPLICATIONS Qualifiers: Diabetes mellitus type: type 2 Diabetes mellitus complication status: with kidney complications Diabetes mellitus complication detail: with chronic kidney disease Diabetes mellitus skilled nursing insulin use: with skilled nursing use Chronic kidney disease stage: stage 3 (moderate) Qualified Code(s): E11.22 - Type 2 diabetes mellitus with diabetic chronic kidney disease ; N18.3 - Chronic kidney disease, stage 3 (moderate); Z79.4 - terminal system operator (current ) use of insulin
--- NOTE | 2016-06-30 12:43 | PN ---
Progress Note (short form) - Note Progress Note: Renal Follow up for MIREYA Pt seen and examined at the bedside feels better but still congested no sob, chest pain, N/V/D good urine output LE edema is mildly improved Vital Signs Temperature 98.1 F 06/30/16 09:15 Pulse Rate 72 06/30/16 09:15 Respiratory Rate 20 06/30/16 09:15 Blood Pressure 126/74 06/30/16 09:15 O2 Sat by Pulse Oximetry (%) 98 06/30/16 09:00 Intake & Output 06/27/16 06/28/16 06/29/16 06/30/16 23:59 23:59 23:59 23:59 Intake Total 1640 1490 400 Balance 1640 1490 400 Weight 260 lb 286 lb 282 lb 4 oz Gen: NAD, awake and alert. CVS: RRR, No M/R Lungs: CTA, no rales or wheeze Abd: soft NT/ND. Obese Ext: 1-2+ edema in LE. Right TMA in dressing CBC, BMP 06/30/16 05:35 06/30/16 05:35 Current Medications Acetaminophen (Tylenol -) 650 mg PO Q4H PRN PRN Reason: FEVER OR PAIN Aspirin (Ecotrin -) 81 mg PO DAILY [facility] Last Admin: 06/30/16 09:08 Dose: 81 mg Atorvastatin Calcium (Lipitor -) 80 mg PO HS [facility] Last Admin: 06/29/16 21:51 Dose: 80 mg Furosemide (Lasix Injection -) 40 mg IVPUSH BID@0600,1400 [facility] Last Admin: 06/30/16 06:37 Dose: 40 mg Insulin Aspart (Novolog Vial Sliding Scale -) 1 vial SQ ACHS [facility] PRN Reason: Protocol Last Admin: 06/30/16 12:20 Dose: 4 units Insulin Aspart (Novolog Mix 70/30 Vial) 40 units SQ BIDI [facility] Last Admin: 06/30/16 07:06 Dose: Not Given Metoprolol Succinate (Toprol Xl -) 25 mg PO DAILY [facility] Last Admin: 06/30/16 09:08 Dose: 25 mg Pt's Own Med (Non- Form) (Canagliflozin [Invokana] 100 Mg) 100 mg PO DAILY [facility] Last Admin: 06/30/16 09:08 Dose: 100 mg Pantoprazole Sodium (Protonix -) 40 mg PO DAILY [facility] Last Admin: 06/30/16 09:08 Dose: 40 mg A/P 61 year old Gentleman with PMhx of CAD, IDDM, Diabetic Neuropathy, Hypertension who presented with SOB/EPSTEIN and LE edema and found to have acute CHF with BUN/Cr of 47/1.9 (baseline Cr 1.2). #Acute Renal Insufficiency in setting of Diastolic CHF and volume overload Likely related to renal hypoperfusion in setting of CHF Urine studies consistent with pre-renal state Renal function stable at this time can consider titrating up diuretics as needed per cardiology Trend BUN/Cr #Acute HF Cardiology following Continue IV lasix Continue Beta Lars hold ACEi for now (marginal BP and acute renal insufficiency) #LE wound/PVD wound care cultures grew staph management as per primary Thank you Shamir Reynoso DO
--- NOTE | 2016-06-30 15:15 | CONSULT ---
Consultation: REQUESTING PROVIDER: CONSULT REQUEST: We have been asked to medically evaluate this patient for (ID). HISTORY OF PRESENT ILLNESS: 61 y/o m with PMH of DM with transmetatarsal amputaion of right foot last year in april. Post amputation patient had completed a six week course of antibiotic. Now patient came to hospital with a complain of sob, diagnosed with diastolic chf. Patient states his incesion site opened up, culture was done which shows staph aureus. Denies hitting his foot. States that when he came to hospital his legs were swollen. no fever, no chills. wbc in normal limit mild erythema on right lower leg which patient states is because of his prosthesis. REVIEW OF SYSTEMS: CONSTITUTIONAL: Absent: fever, chills, diaphoresis, CARDIOVASCULAR: Absent: chest pain, syncope, palpitations, RESPIRATORY: Absent: cough, GENITOURINARY: Absent: dysuria, frequency, PHYSICAL EXAMINATION Vital Signs - 24 hr 06/29/16 06/29/16 06/30/16 18:00 22:00 02:00 Temperature 98.4 F 98.1 F 97.5 F L Pulse Rate 75 71 74 Respiratory 18 18 20 Rate Blood Pressure 103/50 109/66 91/44 O2 Sat by Pulse 96 Oximetry (%) 06/30/16 06/30/16 06/30/16 06:00 09:00 09:12 Temperature 97.6 F 98.1 F Pulse Rate 72 72 Respiratory 20 20 Rate Blood Pressure 109/66 126/74 O2 Sat by Pulse 98 Oximetry (%) 06/30/16 06/30/16 09:15 14:40 Temperature 98.1 F 97.8 F Pulse Rate 72 73 Respiratory 20 16 Rate Blood Pressure 126/74 121/60 O2 Sat by Pulse Oximetry (%) GENERAL: Awake, alert, and fully oriented, in no acute distress. LUNGS: Breath sounds equal, clear to auscultation bilaterally. HEART: s1s2 normal ABDOMEN: Soft, nontender, not distended, normoactive bowel sounds, no guarding, no rebound, MUSCULOSKELETAL: Normal range of motion at all joints. No bony deformities or tenderness. No CVA tenderness. UPPER EXTREMITIES: 2+ pulses, warm, well-perfused. LOWER EXTREMITIES: right foot transmetatarsal amputation, incesion site dry, no discharge, no erythema, non tender, local temp not elevated. mild eryhtema on right lower leg Laboratory Results - last 24 hr 06/29/16 06/29/16 06/30/16 16:35 21:50 05:35 WBC RBC Hgb Hct MCV MCHC RDW Plt Count MPV Neutrophils % Lymphocytes % Monocytes % Eosinophils % Basophils % Sodium 137 Potassium 4.5 Chloride 104 Carbon Dioxide 25 Anion Gap 8 BUN 64 H Creatinine 2.1 H POC Glucometer 162 153 Random Glucose 68 L D Calcium 8.6 Phosphorus 4.7 Magnesium 2.5 H 06/30/16 06/30/16 06/30/16 05:35 06:28 12:19 WBC 8.4 RBC 5.00 Hgb 14.1 Hct 43.1 MCV 86.3 MCHC 32.8 RDW 14.7 Plt Count 225 MPV 8.7 Neutrophils % 67.9 Lymphocytes % 17.0 Monocytes % 8.5 Eosinophils % 5.9 H Basophils % 0.7 Sodium Potassium Chloride Carbon Dioxide Anion Gap BUN Creatinine POC Glucometer 75 203 Random Glucose Calcium Phosphorus Magnesium Active Medications Generic Name Dose Route Start Last Admin Trade Name Isabella PRN Reason Stop Dose Admin Acetaminophen 650 mg 06/27/16 19:58 Tylenol - PO Q4H PRN FEVER OR PAIN Aspirin 81 mg 06/28/16 10:00 06/30/16 09:08 Ecotrin - PO 81 mg DAILY [facility] Administration Atorvastatin Calcium 80 mg 06/27/16 22:00 06/29/16 21:51 Lipitor - PO 80 mg HS [facility] Administration Furosemide 40 mg 06/28/16 15:00 06/30/16 14:36 Lasix Injection - IVPUSH 40 mg BID@0600,1400 [facility] Administration Cefazolin Sodium 1 gm/ 100 mls @ 100 mls/hr 06/30/16 15:15 Dextrose IVPB BID [facility] Insulin Aspart 1 vial 06/27/16 22:00 06/30/16 12:20 Novolog Vial Sliding Scale - SQ 4 units ACHS [facility] Administration Protocol Insulin Aspart 40 units 06/28/16 16:30 06/30/16 07:06 Novolog Mix 70/30 Vial SQ Not Given BIDI [facility] Metoprolol Succinate 25 mg 06/28/16 18:00 06/30/16 09:08 Toprol Xl - PO 25 mg DAILY [facility] Administration Pt's Own Med (Non- 100 mg 06/29/16 10:00 06/30/16 09:08 Form) (Canagliflozin PO 100 mg [Invokana] 100 Mg) DAILY [facility] Administration Pantoprazole Sodium 40 mg 06/28/16 10:00 06/30/16 09:08 Protonix - PO 40 mg DAILY [facility] Administration Microbiology 06/27/16 21:20 Foot - Right Sole Gram Stain - Final 06/27/16 21:20 Foot - Right Sole Wound Culture - Final Staphylococcus Aureus ASSESSMENT/PLAN: cellulitis of TMA stump plan iv cefazolin 1gm q12h. will switch to keflex during discharge get esr and crp monitor vitals Dispo: We will continue to follow the patient. Thank you for this consultative opportunity. Visit type - Emergency Visit Emergency Visit: Yes ED Registration Date: 06/27/16 Care time: The patient presented to the Emergency Department on the above date and was hospitalized for further evaluation of their emergent condition. - New Patient This patient is new to me today: Yes Date on this admission: 06/30/16 - Critical Care Critical Care patient: No
--- NOTE | 2016-06-30 15:42 | PN ---
Teaching Attending Note Name of Resident: Dick Rosenbaum ATTENDING PHYSICIAN STATEMENT I saw and evaluated the patient. I reviewed the resident's note and discussed the case with the resident. I agree with the resident's findings and plan as documented. SUBJECTIVE: OBJECTIVE: ASSESSMENT AND PLAN: Cellulitis, R TMA stump site Azotemia Cefazolin 1gm IVPB q12h
[2016-06-30] MEDS: CEFAZOLIN (PRE-DOCKED) 50 ML IVPB SCH ×2 (16:29→21:49)
[2016-06-30] MEDS ORDERED: INSULIN (NOVOLOG MIX 70/30) 100 UNITS/ML MDV SQ ONE (18:04)
--- NOTE | 2016-06-30 18:43 | CONSULT ---
Consult - History of Present Illness History of Present Illness: 61 year old man with diabetes who is s/p left TMA for chronic osteomyelitis. He has headed his wound and was walking with a prosthetic forefoot. He developed severe edema of both legs and blisters on calves. The old healed scar on the TMA also opened and started to drain. He has had no pain. - Past Medical History Cardio/Vascular: Yes: CAD, HTN, Hyperlipdemia Musculoskeletal: Yes: Other (H/O osteomyelitis) Endocrine: Yes: Diabetes Mellitus - Past Surgical History Past Surgical History: Yes: Amputation - Alcohol/Substance Use Hx Alcohol Use: No History of Substance Use: reports: None - Smoking History Smoking history: Former smoker Have you smoked in the past 12 months: Yes Aproximately how many cigarettes per day: 10 - Social History ADL: Independent History of Recent Travel: No Home Medications - Allergies Allergies/Adverse Reactions: Allergies Allergy/AdvReac Type Severity Reaction Status Date / Time No Known Drug Allergies Allergy Verified 06/27/16 14:55 - Home Medications Home Medications: Ambulatory Orders Insulin (Novolog) [Novolog Flexpen -] 0 units SQ TIDAC #0 pen 08/07/13 Aspirin Coated [Ecotrin -] 81 mg PO DAILY tablet.ec 04/30/15 Canagliflozin [Invokana] 100 mg PO DAILY 06/28/16 Hydrochlorothiazide 25 mg PO DAILY 06/28/16 Insulin (Novolog 70/30) [Novolog Mix 70/30 Flexpen -] 40 units SQ BID 06/28/16 Lisinopril [Prinivil -] 40 mg PO DAILY 06/28/16 Metformin HCl 850 mg PO HS 06/28/16 Family Disease History - Family Disease History Family Disease History: Heart Disease: Father, Mother Physical Exam Vital Signs: Vital Signs Temperature 97.8 F 06/30/16 14:40 Pulse Rate 73 06/30/16 14:40 Respiratory Rate 16 06/30/16 14:40 Blood Pressure 121/60 06/30/16 14:40 O2 Sat by Pulse Oximetry (%) 98 06/30/16 09:00 Constitutional: Yes: No Distress Eyes: Yes: Other (Facial and neck swelling.) Edema: Yes Edema: LLE: 4+, RLE: 4+ Integumentary: Yes: Other (Left TMA wound with separation of skin edges and small amount of exudate. Dry blisters on right calf.) Labs: CBC, BMP 06/30/16 05:35 06/30/16 05:35 Problem List - Problems (1) Anasarca Assessment/Plan: Severe edema causing skin blisters and drainage from ols foot wound. No evidence for cellulitis. Recommend leg elevation and elastic wraps. Bactroban to wounds. Code(s): R60.1 - GENERALIZED EDEMA
[2016-06-30] MEDS ORDERED: PT OWN MED DRAWER 7, Y5N ONE (21:44)
[2016-06-30] MEDS: ATORVASTATIN CA 80 MG TABLET (FP) PO SCH (21:50)
[2016-06-30] MEDS: MUPIROCIN 2% TOPICAL OINTMENT 22 GM TUBE TP SCH (21:50)
[2016-07-01] MEDS: FUROSEMIDE 40 MG/4 ML INJECTABLE VIAL IVPUSH SCH (06:16)
[2016-07-01] MEDS: INSULIN SLIDING SCALE (NOVOLOG) 1 VIAL SQ SCH ×4 (06:19→21:48)
[2016-07-01] MEDS: INSULIN (NOVOLOG MIX 70/30) 100 UNITS/ML MDV SQ SCH ×2 (06:19→16:24)
[2016-07-01 07:05] LABS: BASOPHIL 0.9 % (0-2.0); EOSINOPHIL 5.1 % (0-4.5); MCH 28.2 pg (25.7-33.7); MCHC 33.2 g/dl (32.0-35.9); MEAN PLT VOLUME 8.9 fl (7.5-11.1); NEUTROPHILS 67.6 % (42.8-82.8); PLATELET COUNT 240 K/MM3 (134-434); RDW 14.6 % (11.9-15.9); WHITE BLOOD COUNT 9.4 K/mm3 (4.0-10.0)
[2016-07-01 07:29] LABS: CALCIUM 8.7 mg/dL (8.5-10.1); COCKROFT - GAULT 71.02; MAGNESIUM 2.4 mg/dL (1.8-2.4); PHOSPHOROUS 4.2 mg/dL (2.5-4.9)
[2016-07-01] MEDS: CEFAZOLIN (PRE-DOCKED) 50 ML IVPB SCH ×2 (09:04→21:48)
[2016-07-01] MEDS: METOPROLOL SUCCINATE 25 MG TAB.SR.24H (FP) PO SCH (09:05)
[2016-07-01] MEDS: PANTOPRAZOLE 40 MG TABLET (FP) PO SCH (09:05)
[2016-07-01] MEDS: [UNRECOGNIZED DRUG - REMARK] PO SCH (09:05)
[2016-07-01] MEDS: MUPIROCIN 2% TOPICAL OINTMENT 22 GM TUBE TP SCH ×2 (09:05→21:49)
[2016-07-01] MEDS: ASPIRIN COATED 81 MG TABLET.EC PO SCH (09:05)
--- NOTE | 2016-07-01 09:19 | PN ---
Physical Exam: SUBJECTIVE: Patient seen and examined sitting comfartably in bed denies fever, chills. denies redness in leg denies p0ain in leg, denies discharge. OBJECTIVE: Vital Signs Period Temp Pulse Resp BP Sys/Peter Pulse Ox Last 24 Hr 97.5 F-98.8 F 70-78 16-20 95-121/50-75 97 GENERAL: Awake, alert, and fully oriented, in no acute distress. LUNGS: Breath sounds equal, clear to auscultation bilaterally. HEART: s1s2 normal ABDOMEN: Soft, nontender, not distended, normoactive bowel sounds, no guarding, no rebound, MUSCULOSKELETAL: Normal range of motion at all joints. No bony deformities or tenderness. No CVA tenderness. UPPER EXTREMITIES: 2+ pulses, warm, well-perfused. LOWER EXTREMITIES:dressing present, patient didn't want us to examine Laboratory Results - last 24 hr 06/30/16 06/30/16 06/30/16 12:19 17:36 21:11 WBC RBC Hgb Hct MCV MCHC RDW Plt Count MPV Neutrophils % Lymphocytes % Monocytes % Eosinophils % Basophils % ESR Sodium Potassium Chloride Carbon Dioxide Anion Gap BUN Creatinine POC Glucometer 203 191 148 Random Glucose Calcium Phosphorus Magnesium C-Reactive Protein 07/01/16 07/01/16 07/01/16 05:49 06:00 06:00 WBC 9.4 RBC 5.22 Hgb 14.7 Hct 44.3 MCV 85.0 MCHC 33.2 RDW 14.6 Plt Count 240 MPV 8.9 Neutrophils % 67.6 Lymphocytes % 18.5 Monocytes % 7.9 Eosinophils % 5.1 H Basophils % 0.9 ESR Sodium 135 L Potassium 5.0 Chloride 101 Carbon Dioxide 24 Anion Gap 10 BUN 64 H Creatinine 2.0 H POC Glucometer 110 Random Glucose 136 H D Calcium 8.7 Phosphorus 4.2 Magnesium 2.4 C-Reactive Protein 07/01/16 07/01/16 06:00 06:00 WBC RBC Hgb Hct MCV MCHC RDW Plt Count MPV Neutrophils % Lymphocytes % Monocytes % Eosinophils % Basophils % ESR 13 Sodium Potassium Chloride Carbon Dioxide Anion Gap BUN Creatinine POC Glucometer Random Glucose Calcium Phosphorus Magnesium C-Reactive Protein 0.7 H D Active Medications Generic Name Dose Route Start Last Admin Trade Name Freq PRN Reason Stop Dose Admin Acetaminophen 650 mg 06/27/16 19:58 Tylenol - PO Q4H PRN FEVER OR PAIN Aspirin 81 mg 06/28/16 10:00 07/01/16 09:05 Ecotrin - PO 81 mg DAILY [facility] Administration Atorvastatin Calcium 80 mg 06/27/16 22:00 06/30/16 21:50 Lipitor - PO 80 mg HS [facility] Administration Furosemide 40 mg 06/28/16 15:00 07/01/16 06:16 Lasix Injection - IVPUSH 40 mg BID@0600,1400 [facility] Administration Cefazolin Sodium 50 mls @ 100 mls/hr 06/30/16 15:15 07/01/16 09:04 Ancef 1gm Ivpb (Pre-Docked) IVPB 100 mls/hr BID [facility] Administration Insulin Aspart 1 vial 06/27/16 22:00 07/01/16 06:19 Novolog Vial Sliding Scale - SQ Not Given ACHS [facility] Protocol Insulin Aspart 40 units 06/28/16 16:30 07/01/16 06:19 Novolog Mix 70/30 Vial SQ Not Given BIDI [facility] Metoprolol Succinate 25 mg 06/28/16 18:00 07/01/16 09:05 Toprol Xl - PO 25 mg DAILY [facility] Administration Mupirocin 1 applic 06/30/16 22:00 07/01/16 09:05 Bactroban 2% Ointment - TP 1 applic BID [facility] Administration Pt's Own Med (Non- 100 mg 06/29/16 10:00 07/01/16 09:05 Form) (Canagliflozin PO 100 mg [Invokana] 100 Mg) DAILY [facility] Administration Pantoprazole Sodium 40 mg 06/28/16 10:00 07/01/16 09:05 Protonix - PO 40 mg DAILY [facility] Administration Microbiology 06/27/16 21:20 Foot - Right Sole Gram Stain - Final 06/27/16 21:20 Foot - Right Sole Wound Culture - Final Staphylococcus Aureus ASSESSMENT/PLAN: cellulitis right lower limb, afebrile, wbc normal Plan continue with cefazoline, will switch to keflex in next 24-48 hour Visit type - Emergency Visit Emergency Visit: Yes ED Registration Date: 06/27/16 Care time: The patient presented to the Emergency Department on the above date and was hospitalized for further evaluation of their emergent condition. - New Patient This patient is new to me today: No - Critical Care Critical Care patient: No
--- NOTE | 2016-07-01 10:51 | PN ---
Progress Note (short form) - Note Progress Note: s: no cp palps dizzy; sob improving, le edema improving o: Vital Signs Period Temp Pulse Resp BP Sys/Peter Pulse Ox Last 24 Hr 97.5 F-98.8 F 70-78 16-20 95-121/50-75 97 NAD, calm jvd tds, neck supple ctabl, nl effort RRR nl s1, s2 no mrg + bs soft nt nd obese ext with trace edema to thigh venous stasis changes, bulla s/p LE amputation aaox3 no jaundice, diaphoresis Current Medications Generic Name Dose Route Start Last Admin Trade Name Freq PRN Reason Stop Dose Admin Acetaminophen 650 mg 06/27/16 19:58 Tylenol - PO Q4H PRN FEVER OR PAIN Aspirin 81 mg 06/28/16 10:00 07/01/16 09:05 Ecotrin - PO 81 mg DAILY [facility] Administration Atorvastatin Calcium 80 mg 06/27/16 22:00 06/30/16 21:50 Lipitor - PO 80 mg HS [facility] Administration Furosemide 40 mg 06/28/16 15:00 07/01/16 06:16 Lasix Injection - IVPUSH 40 mg BID@0600,1400 [facility] Administration Cefazolin Sodium 50 mls @ 100 mls/hr 06/30/16 15:15 07/01/16 09:04 Ancef 1gm Ivpb (Pre-Docked) IVPB 100 mls/hr BID [facility] Administration Insulin Aspart 1 vial 06/27/16 22:00 07/01/16 06:19 Novolog Vial Sliding Scale - SQ Not Given ACHS [facility] Protocol Insulin Aspart 40 units 06/28/16 16:30 07/01/16 06:19 Novolog Mix 70/30 Vial SQ Not Given BIDI [facility] Metoprolol Succinate 25 mg 06/28/16 18:00 07/01/16 09:05 Toprol Xl - PO 25 mg DAILY [facility] Administration Mupirocin 1 applic 06/30/16 22:00 07/01/16 09:05 Bactroban 2% Ointment - TP 1 applic BID [facility] Administration Pt's Own Med (Non- 100 mg 06/29/16 10:00 07/01/16 09:05 Form) (Canagliflozin PO 100 mg [Invokana] 100 Mg) DAILY [facility] Administration Pantoprazole Sodium 40 mg 06/28/16 10:00 07/01/16 09:05 Protonix - PO 40 mg DAILY [facility] Administration CBC, BMP 07/01/16 06:00 07/01/16 06:00 EKG: SR, RBBB, bline inferolateral q waves. no acute ischemic changes. tele: SR occ pvc CXR: report and images reviewed. bilateral increased interstitial lung markings. by my review also trace fluid in fissure, possible mild congestion. 06/2016 echo here: tds. Nl lv size/fn. RV not well seen. nl valves. 04/2015 echo [facility]: tds. nl lv/rv. 1+ mr 04/2015 dipyridamole stress [facility]: stach with RBBB, no further ekg changes. mod fixed apical defect with partial reversibility --> mod apical infarct with small area of periinfarct ischemia. inferobasal defect thought to be 2/2 attenuation. mild global HK, apical AK. EF 46% a/p: 61 yo with h/o HTN, HL, CAD s/p medically managed nstemi 2016 in setting of sepsis/wound infection, IDDM, followed by dr christie for DM neuropathy and wounds, PAD s/p LE stent and rt forefoot amputation, here with sob. CAD - prior history of medically managed nstemi 2016 (peak troponin 4) in setting of sepsis/wound infection. at that time cath was deferred due to active underlying infection - here with very mild troponin elevation (peak 0.85) in setting of renal disease with flat trend. Known underlying CAD. Not consistent with ACS. EKG without acute ischemic changes. No anginal sx's. OK to stop heparin and plavix. - con't asa, statin. start bb. - Once patient diuresed, would repeat stress test for risk stratification. Unclear at this time whether patient would be able to comply with DAPT, but if patient has 3vd may benefit from bypass. acute diastolic HF exacerbation - + volume overload, predominantly right sided congestion. In past diuresed with lasix 40 mg IV bid --> have initiated the same regimen here. - diuresing well, wt down today, cr stable, continue IV lasix - daily weights, bmp, i/o's. - monitor cr with diuresis. PAD s/p LE stent and rt forefoot amputation - con't asa, statin HTN -cont bb. holding shawanda-i while with sulema. HL - cont statin ckd/sulema: -monitor with diuresis
--- NOTE | 2016-07-01 10:52 | PN ---
Progress Note, Physician Chief Complaint: Mr Duarte says he is doing well. He denies cp, sob, n/v. He is without complaint. - Current Medication List Current Medications: Active Medications Acetaminophen (Tylenol -) 650 mg PO Q4H PRN PRN Reason: FEVER OR PAIN Aspirin (Ecotrin -) 81 mg PO DAILY [facility] Last Admin: 07/01/16 09:05 Dose: 81 mg Atorvastatin Calcium (Lipitor -) 80 mg PO HS [facility] Last Admin: 06/30/16 21:50 Dose: 80 mg Furosemide (Lasix Injection -) 40 mg IVPUSH BID@0600,1400 [facility] Last Admin: 07/01/16 06:16 Dose: 40 mg Cefazolin Sodium (Ancef 1gm Ivpb (Pre-Docked)) 50 mls @ 100 mls/hr IVPB BID [facility] Last Admin: 07/01/16 09:04 Dose: 100 mls/hr Insulin Aspart (Novolog Vial Sliding Scale -) 1 vial SQ ACHS [facility] PRN Reason: Protocol Last Admin: 07/01/16 06:19 Dose: Not Given Insulin Aspart (Novolog Mix 70/30 Vial) 40 units SQ BIDI [facility] Last Admin: 07/01/16 06:19 Dose: Not Given Metoprolol Succinate (Toprol Xl -) 25 mg PO DAILY [facility] Last Admin: 07/01/16 09:05 Dose: 25 mg Mupirocin (Bactroban 2% Ointment -) 1 applic TP BID [facility] Last Admin: 07/01/16 09:05 Dose: 1 applic Pt's Own Med (Non- Form) (Canagliflozin [Invokana] 100 Mg) 100 mg PO DAILY [facility] Last Admin: 07/01/16 09:05 Dose: 100 mg Pantoprazole Sodium (Protonix -) 40 mg PO DAILY [facility] Last Admin: 07/01/16 09:05 Dose: 40 mg - Objective Vital Signs: Vital Signs Temperature 97.5 F L 07/01/16 06:00 Pulse Rate 78 07/01/16 06:00 Respiratory Rate 20 07/01/16 06:00 Blood Pressure 95/57 07/01/16 06:00 O2 Sat by Pulse Oximetry (%) 97 06/30/16 21:00 Constitutional: Yes: No Distress, Calm, Obese Cardiovascular: Yes: Regular Rate and Rhythm. No: Gallop, Murmur, Rub Respiratory: Yes: Regular, CTA Bilaterally. No: Rales, Rhonchi, Wheezes Gastrointestinal: Yes: Normal Bowel Sounds, Soft. No: Distention, Tenderness Extremities: Yes: Amputation Edema: Yes Edema: LLE: Trace, RLE: Trace Labs: CBC, BMP 07/01/16 06:00 07/01/16 06:00 INR, PTT INR 1.01 (0.82-1.09) 06/27/16 17:20 Problem List - Problems (1) Wound infection Code(s): T14.8 - OTHER INJURY OF UNSPECIFIED BODY REGION L08.9 - LOCAL INFECTION OF THE SKIN AND SUBCUTANEOUS TISSUE, UNSP (2) NSTEMI (non-ST elevated myocardial infarction) Code(s): I21.4 - NON-ST ELEVATION (NSTEMI) MYOCARDIAL INFARCTION (3) CHF (congestive heart failure) Code(s): I50.9 - HEART FAILURE, UNSPECIFIED Qualifiers: Congestive heart failure type: diastolic Congestive heart failure chronicity: acute on chronic Qualified Code(s): I50.33 - Acute on chronic diastolic (congestive) heart failure (4) CKD (chronic kidney disease) stage 3, GFR 30-59 ml/min Code(s): N18.3 - CHRONIC KIDNEY DISEASE, STAGE 3 (MODERATE) (5) CAD (coronary artery disease) Code(s): I25.10 - ATHSCL HEART DISEASE OF [place] CORONARY ARTERY W/O ANG PCTRS Qualifiers: Coronary Disease-Associated Artery/Lesion type: [place] artery [place] vs. transplanted heart: [place] heart Associated angina: without angina Qualified Code(s): I25.10 - Atherosclerotic heart disease of [place] coronary artery without angina pectoris (6) Hyperlipidemia Code(s): E78.5 - HYPERLIPIDEMIA, UNSPECIFIED Qualifiers: Hyperlipidemia type: unspecified Qualified Code(s): E78.5 - Hyperlipidemia, unspecified (7) Hypertension Code(s): I10 - ESSENTIAL (PRIMARY) HYPERTENSION Qualifiers: Hypertension type: essential hypertension Qualified Code(s): I10 - Essential (primary) hypertension (8) PVD (peripheral vascular disease) Code(s): I73.9 - PERIPHERAL VASCULAR DISEASE, UNSPECIFIED (9) Diabetes mellitus Code(s): E11.9 - TYPE 2 DIABETES MELLITUS WITHOUT COMPLICATIONS Qualifiers: Diabetes mellitus type: type 2 Diabetes mellitus complication status: with kidney complications Diabetes mellitus complication detail: with chronic kidney disease Diabetes mellitus long-term insulin use: with terminal worker use Chronic kidney disease stage: stage 3 (moderate) Qualified Code(s): E11.22 - Type 2 diabetes mellitus with diabetic chronic kidney disease ; N18.1 - Chronic kidney disease, stage 1; Z79.4 - medical terminologist (current) use of insulin Assessment/Plan (1) MSSA wound infection Assessment/Plan: -wound cultures sent growing MSSA -appreciate ID assistance -on fortaz Code(s): I21.4 - NON-ST ELEVATION (NSTEMI) MYOCARDIAL INFARCTION (2) CHF (congestive heart failure) Assessment/Plan: -diuresing very well -trace edema in ble -not short of breath -down 8lbs -cardiology following, ? if approaching dry weight [place] HEART FAILURE, UNSPECIFIED Qualifiers: Congestive heart failure type: unspecified congestive heart failure type Congestive heart failure chronicity: acute on chronic Qualified Code(s): I50.9 - Heart failure, unspecified (3) CKD (chronic kidney disease) stage 3, GFR 30-59 ml/min Assessment/Plan: -nephrology following -stable -continue to monitor -lisinopril stopped this admission secondary to renal function Code(s): N18.3 - CHRONIC KIDNEY DISEASE, STAGE 3 (MODERATE) (4) CAD (coronary artery disease) Assessment/Plan: -as above Code(s): I25.10 - ATHSCL HEART DISEASE OF [place] CORONARY ARTERY W/O ANG PCTRS Qualifiers: Coronary Disease-Associated Artery/Lesion type: [place] artery [place] vs. transplanted heart: [place] heart Associated angina: without angina Qualified Code(s): I25.10 - Atherosclerotic heart disease of [place] coronary artery without angina pectoris (5) Hyperlipidemia Assessment/Plan: -continue statin Code(s): E78.5 - HYPERLIPIDEMIA, UNSPECIFIED Qualifiers: Hyperlipidemia type: unspecified Qualified Code(s): E78.5 - Hyperlipidemia, unspecified (6) Hypertension Assessment/Plan: -on lasix Code(s): I10 - ESSENTIAL (PRIMARY) HYPERTENSION Qualifiers: Hypertension type: essential hypertension Qualified Code(s): I10 - Essential (primary) hypertension (7) PVD (peripheral vascular disease) Assessment/Plan: -continue aspirin Code(s): I73.9 - PERIPHERAL VASCULAR DISEASE, UNSPECIFIED (8) Diabetes mellitus Assessment/Plan: -continue home regimen -diabetic diet -FSBS and SSI Code(s): E11.9 - TYPE 2 DIABETES MELLITUS WITHOUT COMPLICATIONS Qualifiers: Diabetes mellitus type: type 2 Diabetes mellitus complication status: with kidney complications Diabetes mellitus complication detail: with chronic kidney disease Diabetes mellitus long-term insulin use: with long-term use Chronic kidney disease stage: stage 3 (moderate) Qualified Code(s): E11.22 - Type 2 diabetes mellitus with diabetic chronic kidney disease ; N18.3 - Chronic kidney disease, stage 3 (moderate); Z79.4 - medical terminologist (current ) use of insulin
[2016-07-01] MEDS ORDERED: INSULIN (NOVOLOG) ASPART 100 UNITS/ML 10ML VIAL ONE ×3 (12:21→21:44)
--- NOTE | 2016-07-01 12:21 | PN ---
Progress Note, Physician Chief Complaint: The patient seen on his bed. The edema of the lower extremities unchanged. Makes a lot of urine. No chest pain. reports that the breathing has improved. - Current Medication List Current Medications: Active Medications Acetaminophen (Tylenol -) 650 mg PO Q4H PRN PRN Reason: FEVER OR PAIN Aspirin (Ecotrin -) 81 mg PO DAILY [facility] Last Admin: 07/01/16 09:05 Dose: 81 mg Atorvastatin Calcium (Lipitor -) 80 mg PO HS [facility] Last Admin: 06/30/16 21:50 Dose: 80 mg Furosemide (Lasix Injection -) 40 mg IVPUSH BID@0600,1400 [facility] Last Admin: 07/01/16 06:16 Dose: 40 mg Cefazolin Sodium (Ancef 1gm Ivpb (Pre-Docked)) 50 mls @ 100 mls/hr IVPB BID [facility] Last Admin: 07/01/16 09:04 Dose: 100 mls/hr Insulin Aspart (Novolog Vial Sliding Scale -) 1 vial SQ ACHS [facility] PRN Reason: Protocol Last Admin: 07/01/16 06:19 Dose: Not Given Insulin Aspart (Novolog Mix 70/30 Vial) 40 units SQ BIDI [facility] Last Admin: 07/01/16 06:19 Dose: Not Given Metoprolol Succinate (Toprol Xl -) 25 mg PO DAILY [facility] Last Admin: 07/01/16 09:05 Dose: 25 mg Mupirocin (Bactroban 2% Ointment -) 1 applic TP BID [facility] Last Admin: 07/01/16 09:05 Dose: 1 applic Pt's Own Med (Non- Form) (Canagliflozin [Invokana] 100 Mg) 100 mg PO DAILY [facility] Last Admin: 07/01/16 09:05 Dose: 100 mg Pantoprazole Sodium (Protonix -) 40 mg PO DAILY [facility] Last Admin: 07/01/16 09:05 Dose: 40 mg - Objective Vital Signs: Vital Signs Temperature 97.5 F L 07/01/16 06:00 Pulse Rate 78 07/01/16 06:00 Respiratory Rate 20 07/01/16 06:00 Blood Pressure 95/57 07/01/16 06:00 O2 Sat by Pulse Oximetry (%) 97 06/30/16 21:00 Constitutional: Yes: No Distress, Anxious Eyes: Yes: Conjunctiva Clear HENT: Yes: Normocephalic Cardiovascular: Yes: S1, S2 Respiratory: Yes: Diminished, Poor Air Entry Gastrointestinal: Yes: Normal Bowel Sounds, Abdomen, Obese. No: Palpable Mass Genitourinary: No: CVA Tenderness - Left, CVA Tenderness - Right Extremities: Yes: Amputation Edema: Yes Edema: LLE: 3+, RLE: 3+ Neurological: Yes: Alert Labs: CBC, BMP 07/01/16 06:00 07/01/16 06:00 INR, PTT INR 1.01 (0.82-1.09) 06/27/16 17:20 Problem List - Problems (1) Anasarca Code(s): R60.1 - GENERALIZED EDEMA (2) CHF (congestive heart failure) Code(s): I50.9 - HEART FAILURE, UNSPECIFIED Qualifiers: Congestive heart failure type: diastolic Congestive heart failure chronicity: acute on chronic Qualified Code(s): I50.33 - Acute on chronic diastolic (congestive) heart failure (3) Diabetes mellitus Code(s): E11.9 - TYPE 2 DIABETES MELLITUS WITHOUT COMPLICATIONS Qualifiers: Diabetes mellitus type: type 2 Diabetes mellitus complication status: with kidney complications Diabetes mellitus complication detail: with chronic kidney disease Diabetes mellitus mcfp insulin use: with technician terminal and repeater use Chronic kidney disease stage: stage 3 (moderate) Qualified Code(s): E11.22 - Type 2 diabetes mellitus with diabetic chronic kidney disease ; N18.1 - Chronic kidney disease, stage 1; Z79.4 - technician terminal and repeater (current) use of insulin (4) Wound infection Code(s): T14.8 - OTHER INJURY OF UNSPECIFIED BODY REGION L08.9 - LOCAL INFECTION OF THE SKIN AND SUBCUTANEOUS TISSUE, UNSP (5) Type 2 diabetes mellitus with peripheral neuropathy Code(s): E11.42 - TYPE 2 DIABETES MELLITUS WITH DIABETIC POLYNEUROPATHY (6) Acute kidney injury Code(s): N17.9 - ACUTE KIDNEY FAILURE, UNSPECIFIED (7) Cellulitis and abscess of foot Code(s): L03.119 - CELLULITIS OF UNSPECIFIED PART OF LIMB L02.619 - CUTANEOUS ABSCESS OF UNSPECIFIED FOOT (8) Diabetic foot ulcer Code(s): E11.621 - TYPE 2 DIABETES MELLITUS WITH FOOT ULCER L97.509 - NON-PRESSURE CHRONIC ULCER OTH PRT UNSP FOOT W UNSP SEVERITY Qualifiers: Diabetes mellitus type: other specified (including DESTINY) Laterality: right Qualified Code(s): E13.621 - Other specified diabetes mellitus with foot ulcer; L97.409 - Non-pressure chronic ulcer of unspecified heel and midfoot with unspecified severity (9) Anemia Code(s): D64.9 - ANEMIA, UNSPECIFIED (10) CAD (coronary artery disease) Code(s): I25.10 - ATHSCL HEART DISEASE OF [place] CORONARY ARTERY W/O ANG PCTRS Qualifiers: Coronary Disease-Associated Artery/Lesion type: [place] artery [place] vs. transplanted heart: [place] heart Associated angina: without angina Qualified Code(s): I25.10 - Atherosclerotic heart disease of [place] coronary artery without angina pectoris (11) Hypertension Code(s): I10 - ESSENTIAL (PRIMARY) HYPERTENSION Qualifiers: Hypertension type: essential hypertension Qualified Code(s): I10 - Essential (primary) hypertension
--- NOTE | 2016-07-01 14:53 | PN ---
Teaching Attending Note Name of Resident: Dick Rosenbaum ATTENDING PHYSICIAN STATEMENT I saw and evaluated the patient. I reviewed the resident's note and discussed the case with the resident. I agree with the resident's findings and plan as documented. SUBJECTIVE: Awake, alert No c/o foot pain No fever/ chills Tolerating antibiotics OBJECTIVE: Cor S1S2 Lungs clear Abdomen obese, soft, non tender + edema Would not allow us to remove foot dressing ASSESSMENT AND PLAN: Cellulitis TMA stump site + wound c/s MSSA Diabetes mellitus Continue cefazolin Switch to po keflex next 24-48hr
[2016-07-01] MEDS ORDERED: PT OWN MED DRAWER 7, Y5N ONE (15:41)
[2016-07-01] MEDS ORDERED: FUROSEMIDE INJECTION 100 MG in SODIUM CHLORIDE 90 ML IVPB SCH (16:00)
[2016-07-01] MEDS ORDERED: FUROSEMIDE 100 MG/10 ML INJECTABLE VIAL ONE (16:10)
[2016-07-01] MEDS: FUROSEMIDE INJECTION 100 MG in SODIUM CHLORIDE 90 ML IVPB SCH (16:24)
[2016-07-01] MEDS ORDERED: FUROSEMIDE 100 MG/10 ML INJECTABLE VIAL IVPB SCH (18:00)
[2016-07-01] MEDS: ATORVASTATIN CA 80 MG TABLET (FP) PO SCH (21:48)
[2016-07-02] MEDS ORDERED: FUROSEMIDE 100 MG/10 ML INJECTABLE VIAL ONE (03:18)
[2016-07-02] MEDS ORDERED: SODIUM CHLORIDE 100 ML IVPB ONE (03:19)
[2016-07-02] MEDS: FUROSEMIDE INJECTION 100 MG in SODIUM CHLORIDE 90 ML IVPB SCH (03:37)
[2016-07-02] MEDS ORDERED: PT OWN MED DRAWER 7, Y5N ONE ×2 (05:59→21:13)
[2016-07-02] MEDS ORDERED: INSULIN (NOVOLOG MIX 70/30) 100 UNITS/ML MDV SQ ONE (06:00)
[2016-07-02] MEDS: INSULIN (NOVOLOG MIX 70/30) 100 UNITS/ML MDV SQ SCH ×2 (06:04→17:55)
[2016-07-02] MEDS: INSULIN SLIDING SCALE (NOVOLOG) 1 VIAL SQ SCH ×4 (06:04→21:15)
[2016-07-02 07:14] LABS: BASOPHIL 0.7 % (0-2.0); EOSINOPHIL 5.4 % (0-4.5); MCH 27.8 pg (25.7-33.7); MCHC 32.6 g/dl (32.0-35.9); MEAN CELL VOLUME 85.3 fl (80-96); MEAN PLT VOLUME 9.2 fl (7.5-11.1); NEUTROPHILS 67.1 % (42.8-82.8); PLATELET COUNT 259 K/MM3 (134-434); RDW 14.7 % (11.9-15.9); WHITE BLOOD COUNT 9.4 K/mm3 (4.0-10.0)
[2016-07-02 07:58] LABS: CALCIUM 9.2 mg/dL (8.5-10.1); MAGNESIUM 2.5 mg/dL (1.8-2.4)
[2016-07-02 07:59] LABS: COCKROFT - GAULT 69.7; PHOSPHOROUS 3.8 mg/dL (2.5-4.9)
[2016-07-02] MEDS: ASPIRIN COATED 81 MG TABLET.EC PO SCH (09:08)
[2016-07-02] MEDS: MUPIROCIN 2% TOPICAL OINTMENT 22 GM TUBE TP SCH ×2 (09:08→21:17)
[2016-07-02] MEDS: PANTOPRAZOLE 40 MG TABLET (FP) PO SCH (09:08)
[2016-07-02] MEDS: METOPROLOL SUCCINATE 25 MG TAB.SR.24H (FP) PO SCH ×2 (09:08→09:56)
[2016-07-02] MEDS: CEFAZOLIN (PRE-DOCKED) 50 ML IVPB SCH ×2 (09:08→21:11)
[2016-07-02] MEDS: [UNRECOGNIZED DRUG - REMARK] PO SCH (09:09)
--- NOTE | 2016-07-02 10:56 | PN ---
Progress Note, Physician Chief Complaint: Not sleeping well; no SOB or chest pain. History of Present Illness: Patient with infected leg wound and Hx. amputation of right foot is being treated with local care and IV antiobiotics. He also has uncontrolled DM and and renal failure. [facility] which I will address. Seen by ID, Vascular and Cardiology MD's and is improving overall. - Current Medication List Current Medications: Active Medications Acetaminophen (Tylenol -) 650 mg PO Q4H PRN PRN Reason: FEVER OR PAIN Aspirin (Ecotrin -) 81 mg PO DAILY [facility] Last Admin: 07/02/16 09:08 Dose: 81 mg Atorvastatin Calcium (Lipitor -) 80 mg PO HS [facility] Last Admin: 07/01/16 21:48 Dose: 80 mg Clonazepam (Klonopin -) 0.5 mg PO HS [facility] Cefazolin Sodium (Ancef 1gm Ivpb (Pre-Docked)) 50 mls @ 100 mls/hr IVPB BID [facility] Last Admin: 07/02/16 09:08 Dose: 100 mls/hr Furosemide 100 mg/ Sodium (Chloride) 100 mls @ 10 mls/hr IVPB Q12H [facility] Stop: 07/04/16 16:29 Last Admin: 07/02/16 03:37 Dose: 10 mls/hr Insulin Aspart (Novolog Vial Sliding Scale -) 1 vial SQ ACHS [facility] PRN Reason: Protocol Last Admin: 07/02/16 06:04 Dose: 2 units Insulin Aspart (Novolog Mix 70/30 Vial) 40 units SQ BIDI [facility] Last Admin: 07/02/16 06:04 Dose: 40 units Metoprolol Succinate (Toprol Xl -) 25 mg PO DAILY [facility] Last Admin: 07/02/16 09:56 Dose: Not Given Mupirocin (Bactroban 2% Ointment -) 1 applic TP BID [facility] Last Admin: 07/02/16 09:08 Dose: 1 applic Pt's Own Med (Non- Form) (Canagliflozin [Invokana] 100 Mg) 100 mg PO DAILY [facility] Last Admin: 07/02/16 09:09 Dose: 100 mg Pantoprazole Sodium (Protonix -) 40 mg PO DAILY [facility] Last Admin: 07/02/16 09:08 Dose: 40 mg - Objective Vital Signs: Vital Signs Temperature 98.1 F 07/02/16 06:00 Pulse Rate 76 07/02/16 06:00 Respiratory Rate 18 07/02/16 06:00 Blood Pressure 134/84 07/02/16 06:00 O2 Sat by Pulse Oximetry (%) 96 07/01/16 21:00 Constitutional: Yes: Calm Eyes: Yes: Other (Hx corneal transplant) Cardiovascular: Yes: Regular Rate and Rhythm Respiratory: Yes: Diminished, Rhonchi (rare rhonchi on deep inspiration) Gastrointestinal: Yes: Soft Genitourinary: No: [place] Present Extremities: Yes: Amputation (right foot) Edema: LLE: 1+, RLE: 1+ Wound/Incision: Yes: Other (Blister and scab anterior tibia LLE) Neurological: Yes: Alert, Oriented Labs: CBC, BMP 07/02/16 06:00 07/02/16 06:00 INR, PTT INR 1.01 (0.82-1.09) 06/27/16 17:20 Assessment/Plan Leg wound: On IV antibiotics DM: BGM's noted and on Rx ASHD:Stable without SOB and followed by Cardiology Renal failure: Followed by renal MD F/U lab ordered Insomnia: Rx clonazepam .5mg PRN HS
--- NOTE | 2016-07-02 12:22 | PN ---
Progress Note (short form) - Note Progress Note: Renal Follow up for MIREYA Pt seen and examined at the bedside no acute complaints was on lasix gtt up til this am edema is improved sob is improved good urine output Vital Signs Temperature 98.1 F 07/02/16 10:00 Pulse Rate 61 07/02/16 10:00 Respiratory Rate 18 07/02/16 10:00 Blood Pressure 80/52 07/02/16 10:00 O2 Sat by Pulse Oximetry (%) 97 07/02/16 09:00 Intake & Output 06/29/16 06/30/16 07/01/16 07/02/16 23:59 23:59 23:59 23:59 Intake Total 7511 080 3023 170 Balance 2250 435 0898 170 Weight 282 lb 4 oz 278 lb 6 oz 273 lb 3.2 oz Gen: NAD, awake and alert. CVS: RRR, No M/R Lungs: CTA, no rales or wheeze Abd: soft NT/ND. Obese Ext: 1-2+ edema in LE. Right TMA in dressing CBC, BMP 07/02/16 06:00 07/02/16 06:00 Laboratory Tests 07/02/16 06:00 Calcium 9.2 Phosphorus 3.8 Magnesium 2.5 H Current Medications Acetaminophen (Tylenol -) 650 mg PO Q4H PRN PRN Reason: FEVER OR PAIN Aspirin (Ecotrin -) 81 mg PO DAILY [facility] Last Admin: 07/02/16 09:08 Dose: 81 mg Atorvastatin Calcium (Lipitor -) 80 mg PO HS [facility] Last Admin: 07/01/16 21:48 Dose: 80 mg Clonazepam (Klonopin -) 0.5 mg PO HS [facility] Cefazolin Sodium (Ancef 1gm Ivpb (Pre-Docked)) 50 mls @ 100 mls/hr IVPB BID [facility] Last Admin: 07/02/16 09:08 Dose: 100 mls/hr Furosemide 100 mg/ Sodium (Chloride) 100 mls @ 10 mls/hr IVPB Q12H [facility] Stop: 07/04/16 16:29 Last Admin: 07/02/16 03:37 Dose: 10 mls/hr Insulin Aspart (Novolog Vial Sliding Scale -) 1 vial SQ ACHS [facility] PRN Reason: Protocol Last Admin: 07/02/16 06:04 Dose: 2 units Insulin Aspart (Novolog Mix 70/30 Vial) 40 units SQ BIDI [facility] Last Admin: 07/02/16 06:04 Dose: 40 units Metoprolol Succinate (Toprol Xl -) 25 mg PO DAILY [facility] Last Admin: 07/02/16 09:56 Dose: Not Given Mupirocin (Bactroban 2% Ointment -) 1 applic TP BID [facility] Last Admin: 07/02/16 09:08 Dose: 1 applic Pt's Own Med (Non- Form) (Canagliflozin [Invokana] 100 Mg) 100 mg PO DAILY [facility] Last Admin: 07/02/16 09:09 Dose: 100 mg Pantoprazole Sodium (Protonix -) 40 mg PO DAILY [facility] Last Admin: 07/02/16 09:08 Dose: 40 mg A/P 61 year old Gentleman with PMhx of CAD, IDDM, Diabetic Neuropathy, Hypertension who presented with SOB/EPSTEIN and LE edema and found to have acute CHF with BUN/Cr of 47/1.9 (baseline Cr 1.2). #Acute Renal Insufficiency in setting of Diastolic CHF and volume overload Likely related to renal hypoperfusion in setting of CHF Urine studies consistent with pre-renal state Renal function is stable on IV diuretics can continue IV lasix gtt vs. bolous/PO lasix as per cardiology Recs as volume status appears improved dose all meds for Cr Cl less then 30 #Acute HF Cardiology following Continue IV lasix Continue Beta Lars hold ACEi for now (marginal BP and acute renal insufficiency) #LE wound/PVD wound care cultures grew staph management as per primary Thank you Shamir Reynoso DO
--- NOTE | 2016-07-02 13:21 | PN ---
Progress Note (short form) - Note Progress Note: CC: HF exacerbation s: Noted to be hypotensive this morning, sys bp 80's. Lasix drip stopped and metoprolol held. no cp palps dizzy; sob improving, le edema improving o: Current Medications Acetaminophen (Tylenol -) 650 mg PO Q4H PRN PRN Reason: FEVER OR PAIN Aspirin (Ecotrin -) 81 mg PO DAILY [facility] Last Admin: 07/02/16 09:08 Dose: 81 mg Atorvastatin Calcium (Lipitor -) 80 mg PO HS [facility] Last Admin: 07/01/16 21:48 Dose: 80 mg Clonazepam (Klonopin -) 0.5 mg PO HS [facility] Cefazolin Sodium (Ancef 1gm Ivpb (Pre-Docked)) 50 mls @ 100 mls/hr IVPB BID [facility] Last Admin: 07/02/16 09:08 Dose: 100 mls/hr Insulin Aspart (Novolog Vial Sliding Scale -) 1 vial SQ ACHS [facility] PRN Reason: Protocol Last Admin: 07/02/16 06:04 Dose: 2 units Insulin Aspart (Novolog Mix 70/30 Vial) 40 units SQ BIDI [facility] Last Admin: 07/02/16 06:04 Dose: 40 units Metoprolol Succinate (Toprol Xl -) 25 mg PO DAILY [facility] Last Admin: 07/02/16 09:56 Dose: Not Given Mupirocin (Bactroban 2% Ointment -) 1 applic TP BID [facility] Last Admin: 07/02/16 09:08 Dose: 1 applic Pt's Own Med (Non- Form) (Canagliflozin [Invokana] 100 Mg) 100 mg PO DAILY [facility] Last Admin: 07/02/16 09:09 Dose: 100 mg Pantoprazole Sodium (Protonix -) 40 mg PO DAILY [facility] Last Admin: 07/02/16 09:08 Dose: 40 mg Vital Signs - 24 hr 07/01/16 07/01/16 07/01/16 13:42 18:05 21:00 Temperature 97.3 F L 99.1 F Pulse Rate 85 75 Respiratory 16 18 18 Rate Blood Pressure 115/75 122/86 O2 Sat by Pulse 96 Oximetry (%) 07/01/16 07/02/16 07/02/16 22:00 02:00 06:00 Temperature 98.5 F 97.8 F 98.1 F Pulse Rate 86 78 76 Respiratory 18 18 18 Rate Blood Pressure 147/86 110/56 134/84 O2 Sat by Pulse Oximetry (%) 07/02/16 07/02/16 09:00 10:00 Temperature 98.1 F Pulse Rate 61 Respiratory 18 18 Rate Blood Pressure 80/52 O2 Sat by Pulse 97 Oximetry (%) Intake & Output 06/30/16 07/01/16 07/02/16 07/03/16 07:59 07:59 07:59 07:59 Intake Total 1240 1370 1540 Balance 1240 1370 1540 Weight 282 lb 4 oz 278 lb 6 oz 273 lb 3.2 oz NAD, calm jvd tds, neck supple bibasilar rales nl effort RRR nl s1, s2 no mrg + bs soft nt nd obese ext with trace edema to thigh venous stasis changes, bulla s/p LE amputation aaox3 no jaundice, diaphoresis CBC, BMP 07/02/16 06:00 07/02/16 06:00 EKG: SR, RBBB, bline inferolateral q waves. no acute ischemic changes. tele: SR occ pvc CXR: report and images reviewed. bilateral increased interstitial lung markings. by my review also trace fluid in fissure, possible mild congestion. 06/2016 echo here: tds. Nl lv size/fn. RV not well seen. nl valves. 04/2015 echo [facility]: tds. nl lv/rv. 1+ mr 04/2015 dipyridamole stress [facility]: stach with RBBB, no further ekg changes. mod fixed apical defect with partial reversibility --> mod apical infarct with small area of periinfarct ischemia. inferobasal defect thought to be 2/2 attenuation. mild global HK, apical AK. EF 46% a/p: 61 yo with h/o HTN, HL, CAD s/p medically managed nstemi 2016 in setting of sepsis/wound infection, IDDM, followed by dr christie for DM neuropathy and wounds, PAD s/p LE stent and rt forefoot amputation, here with sob. CAD - prior history of medically managed nstemi 2016 (peak troponin 4) in setting of sepsis/wound infection. at that time cath was deferred due to active underlying infection - here with very mild troponin elevation (peak 0.85) in setting of renal disease with flat trend. Known underlying CAD. Not consistent with ACS. EKG without acute ischemic changes. No anginal sx's. OK to stop heparin and plavix. - con't asa, statin. start bb. - Once patient diuresed, would repeat stress test for risk stratification. Unclear at this time whether patient would be able to comply with DAPT, but if patient has 3vd may benefit from bypass. acute diastolic HF exacerbation - + volume overload, predominantly right sided congestion. In past diuresed with lasix 40 mg IV bid --> have initiated the same regimen here --> uptitrated to 100 mg q [address] of IV drip. . - diuresing well, cr stable, - daily weights, bmp, i/o's. - monitor cr with diuresis. - 07/02: lasix drip held in am b/c of hypotension. Asx. Still with residual edema and remains significantly above prior standing weights. Subsequent bp's okay --> resume 100 mg IV BID. monitor for need to downtitrate regimen. PAD s/p LE stent and rt forefoot amputation - con't asa, statin HTN -cont low dose bb. holding shawanda-i while with sulema. HL - cont statin ckd/sulema: -monitor with diuresis
[2016-07-02] MEDS: ATORVASTATIN CA 80 MG TABLET (FP) PO SCH (21:11)
[2016-07-02] MEDS: FUROSEMIDE 40 MG/4 ML INJECTABLE VIAL IVPUSH SCH (21:12)
[2016-07-02] MEDS: clonazePAM 0.5 MG TABLET PO SCH (21:13)
[2016-07-03] MEDS: FUROSEMIDE 40 MG/4 ML INJECTABLE VIAL IVPUSH SCH (06:10)
[2016-07-03] MEDS: INSULIN SLIDING SCALE (NOVOLOG) 1 VIAL SQ SCH ×4 (06:11→22:31)
[2016-07-03] MEDS: INSULIN (NOVOLOG MIX 70/30) 100 UNITS/ML MDV SQ SCH ×2 (06:11→16:49)
--- NOTE | 2016-07-03 07:25 | PN ---
Progress Note (short form) - Note Progress Note: Renal Follow up for MIREYA Pt seen and examined at the bedside reports less urine output last night as compared to the night before no sob edema is improved Vital Signs Temperature 97.9 F 07/03/16 01:50 Pulse Rate 74 07/03/16 01:50 Respiratory Rate 16 07/03/16 01:50 Blood Pressure 121/66 07/03/16 01:50 O2 Sat by Pulse Oximetry (%) 94 L 07/02/16 21:00 Intake & Output 06/30/16 07/01/16 07/02/16 07/03/16 23:59 23:59 23:59 23:59 Intake Total 970 1770 870 100 Output Total 1600 2230 Balance 970 1770 -730 -2130 Weight 282 lb 4 oz 278 lb 6 oz 273 lb 3.2 oz 271 lb 6 oz Gen: NAD, awake and alert. CVS: RRR, No M/R Lungs: CTA, no rales or wheeze Abd: soft NT/ND. Obese Ext: Trace Le edema (improving) CBC, BMP 07/02/16 06:00 Current Medications Acetaminophen (Tylenol -) 650 mg PO Q4H PRN PRN Reason: FEVER OR PAIN Aspirin (Ecotrin -) 81 mg PO DAILY [facility] Last Admin: 07/02/16 09:08 Dose: 81 mg Atorvastatin Calcium (Lipitor -) 80 mg PO HS [facility] Last Admin: 07/02/16 21:11 Dose: 80 mg Clonazepam (Klonopin -) 0.5 mg PO HS [facility] Last Admin: 07/02/16 21:13 Dose: 0.5 mg Furosemide (Lasix Injection -) 100 mg IVPUSH BID@0600,1400 [facility] Last Admin: 07/03/16 06:10 Dose: 100 mg Cefazolin Sodium (Ancef 1gm Ivpb (Pre-Docked)) 50 mls @ 100 mls/hr IVPB BID [facility] Last Admin: 07/02/16 21:11 Dose: 100 mls/hr Insulin Aspart (Novolog Vial Sliding Scale -) 1 vial SQ ACHS [facility] PRN Reason: Protocol Last Admin: 07/03/16 06:11 Dose: 2 units Insulin Aspart (Novolog Mix 70/30 Vial) 40 units SQ BIDI [facility] Last Admin: 07/03/16 06:11 Dose: 40 units Metoprolol Succinate (Toprol Xl -) 25 mg PO DAILY [facility] Last Admin: 07/02/16 09:56 Dose: Not Given Mupirocin (Bactroban 2% Ointment -) 1 applic TP BID [facility] Last Admin: 07/02/16 21:17 Dose: 1 applic Pt's Own Med (Non- Form) (Canagliflozin [Invokana] 100 Mg) 100 mg PO DAILY [facility] Last Admin: 07/02/16 09:09 Dose: 100 mg Pantoprazole Sodium (Protonix -) 40 mg PO DAILY [facility] Last Admin: 07/02/16 09:08 Dose: 40 mg A/P 61 year old Gentleman with PMhx of CAD, IDDM, Diabetic Neuropathy, Hypertension who presented with SOB/EPSTEIN and LE edema and found to have acute CHF with BUN/Cr of 47/1.9 (baseline Cr 1.2). #Acute Renal Insufficiency in setting of Diastolic CHF and volume overload Likely related to renal hypoperfusion in setting of CHF Urine studies consistent with pre-renal state Todays labs are pending on Lasix 100mg IV bid, volume status improved Trend BUN/Cr and weights #Acute HF Cardiology following Titrate IV lasix as per cardiology off ACEi, once evolemic and on stable dose of Lasix can restart ACEi #LE wound/PVD wound care cultures grew staph management as per primary Thank you Shamir Reynoso DO
[2016-07-03 07:34] LABS: CALCIUM 9.3 mg/dL (8.5-10.1); COCKROFT - GAULT 65.94; CREATININE 2.1 mg/dL (0.7-1.3); MAGNESIUM 2.3 mg/dL (1.8-2.4); PHOSPHOROUS 4.2 mg/dL (2.5-4.9)
[2016-07-03] MEDS: CEFAZOLIN (PRE-DOCKED) 50 ML IVPB SCH ×2 (09:40→22:28)
[2016-07-03] MEDS: PANTOPRAZOLE 40 MG TABLET (FP) PO SCH (09:40)
[2016-07-03] MEDS: METOPROLOL SUCCINATE 25 MG TAB.SR.24H (FP) PO SCH (09:40)
[2016-07-03] MEDS: ASPIRIN COATED 81 MG TABLET.EC PO SCH (09:40)
[2016-07-03] MEDS: [UNRECOGNIZED DRUG - REMARK] PO SCH (09:41)
[2016-07-03] MEDS: MUPIROCIN 2% TOPICAL OINTMENT 22 GM TUBE TP SCH ×2 (09:41→22:30)
--- NOTE | 2016-07-03 11:34 | PN ---
Progress Note, Physician Chief Complaint: Having some cramps in the legs and hands. History of Present Illness: Patient with admission for Rx of leg wounds and being treated for CHF with fluid overload and Uncontrolled DM with nephropathy is improve doverall but having some leg and hand cramps related to diuretics. He says he is not urinating as much but there was at least 700 cc of urine in his urinal when I saw him. Tolerating his diet and slept well on Clonazepam .5mg. Lab shows slight increase in renal values. - Current Medication List Current Medications: Active Medications Acetaminophen (Tylenol -) 650 mg PO Q4H PRN PRN Reason: FEVER OR PAIN Aspirin (Ecotrin -) 81 mg PO DAILY [facility] Last Admin: 07/03/16 09:40 Dose: 81 mg Atorvastatin Calcium (Lipitor -) 80 mg PO HS [facility] Last Admin: 07/02/16 21:11 Dose: 80 mg Clonazepam (Klonopin -) 0.5 mg PO HS [facility] Last Admin: 07/02/16 21:13 Dose: 0.5 mg Furosemide (Lasix Injection -) 100 mg IVPUSH BID@0600,1400 [facility] Last Admin: 07/03/16 06:10 Dose: 100 mg Cefazolin Sodium (Ancef 1gm Ivpb (Pre-Docked)) 50 mls @ 100 mls/hr IVPB BID [facility] Last Admin: 07/03/16 09:40 Dose: 100 mls/hr Insulin Aspart (Novolog Vial Sliding Scale -) 1 vial SQ ACHS [facility] PRN Reason: Protocol Last Admin: 07/03/16 06:11 Dose: 2 units Insulin Aspart (Novolog Mix 70/30 Vial) 40 units SQ BIDI [facility] Last Admin: 07/03/16 06:11 Dose: 40 units Metoprolol Succinate (Toprol Xl -) 25 mg PO DAILY [facility] Last Admin: 07/03/16 09:40 Dose: 25 mg Mupirocin (Bactroban 2% Ointment -) 1 applic TP BID [facility] Last Admin: 07/03/16 09:41 Dose: 1 applic Pt's Own Med (Non- Form) (Canagliflozin [Invokana] 100 Mg) 100 mg PO DAILY [facility] Last Admin: 07/03/16 09:41 Dose: 100 mg Pantoprazole Sodium (Protonix -) 40 mg PO DAILY [facility] Last Admin: 07/03/16 09:40 Dose: 40 mg - Objective Vital Signs: Vital Signs Temperature 97.9 F 07/03/16 01:50 Pulse Rate 74 07/03/16 01:50 Respiratory Rate 16 07/03/16 01:50 Blood Pressure 121/66 07/03/16 01:50 O2 Sat by Pulse Oximetry (%) 94 L 07/02/16 21:00 Constitutional: Yes: Calm Eyes: Yes: Cataracts Cardiovascular: Yes: Regular Rate and Rhythm Respiratory: Yes: Diminished. No: Rales, Rhonchi, Wheezes Gastrointestinal: Yes: Soft, Abdomen, Obese, Other (Had BM) Genitourinary: No: Weston Present Extremities: Yes: Other (blister left tibia has broken; no acute erthema noted.) Edema: LLE: Trace, RLE: Trace Wound/Incision: Yes: Other (amputation right foot: wrapped with Kerlix) Neurological: Yes: Alert, Oriented Labs: CBC, BMP 07/02/16 06:00 07/03/16 06:00 INR, PTT INR 1.01 (0.82-1.09) 06/27/16 17:20 Assessment/Plan Leg wound: On IV antibiotics DM: BGM's noted and on Rx ASHD:Stable without SOB and followed by Cardiology Renal failure: Followed by renal MD with slight increase in values. F/U lab ordered Insomnia: Rx clonazepam .5mg PRN HS Leg cramps; Await Cardiology as he may need less IV Lasix.
--- NOTE | 2016-07-03 13:59 | PN ---
Progress Note (short form) - Note Progress Note: CC: HF exacerbation s: Lasix drip stopped yesterday, given 100 mg IV lasix push yesterday evening. no cp palps dizzy; sob improving, le edema improving o: Current Medications Acetaminophen (Tylenol -) 650 mg PO Q4H PRN PRN Reason: FEVER OR PAIN Aspirin (Ecotrin -) 81 mg PO DAILY [facility] Last Admin: 07/03/16 09:40 Dose: 81 mg Atorvastatin Calcium (Lipitor -) 80 mg PO HS [facility] Last Admin: 07/02/16 21:11 Dose: 80 mg Clonazepam (Klonopin -) 0.5 mg PO HS [facility] Last Admin: 07/02/16 21:13 Dose: 0.5 mg Furosemide (Lasix Injection -) 100 mg IVPUSH DAILY [facility] Cefazolin Sodium (Ancef 1gm Ivpb (Pre-Docked)) 50 mls @ 100 mls/hr IVPB BID [facility] Last Admin: 07/03/16 09:40 Dose: 100 mls/hr Insulin Aspart (Novolog Vial Sliding Scale -) 1 vial SQ ACHS [facility] PRN Reason: Protocol Last Admin: 07/03/16 13:02 Dose: Not Given Insulin Aspart (Novolog Mix 70/30 Vial) 40 units SQ BIDI [facility] Last Admin: 07/03/16 06:11 Dose: 40 units Metoprolol Succinate (Toprol Xl -) 25 mg PO DAILY [facility] Last Admin: 07/03/16 09:40 Dose: 25 mg Mupirocin (Bactroban 2% Ointment -) 1 applic TP BID [facility] Last Admin: 07/03/16 09:41 Dose: 1 applic Pt's Own Med (Non- Form) (Canagliflozin [Invokana] 100 Mg) 100 mg PO DAILY [facility] Last Admin: 07/03/16 09:41 Dose: 100 mg Pantoprazole Sodium (Protonix -) 40 mg PO DAILY [facility] Last Admin: 07/03/16 09:40 Dose: 40 mg Vital Signs - 24 hr 07/02/16 07/02/16 07/02/16 14:09 18:01 21:00 Temperature 98.9 F 98.1 F 98.2 F Pulse Rate 81 80 82 Respiratory 18 20 16 Rate Blood Pressure 125/78 146/104 141/96 O2 Sat by Pulse 94 L Oximetry (%) 07/03/16 07/03/16 07/03/16 01:50 10:00 13:39 Temperature 97.9 F 98.0 F 98.2 F Pulse Rate 74 86 81 Respiratory 16 18 18 Rate Blood Pressure 121/66 122/80 129/77 O2 Sat by Pulse 95 Oximetry (%) Intake & Output 07/01/16 07/02/16 07/03/16 07/04/16 07:59 07:59 07:59 07:59 Intake Total 1370 1540 800 300 Output Total 3830 600 Balance 1370 1540 -3030 -300 Weight 278 lb 6 oz 273 lb 3.2 oz 271 lb 6 oz NAD, calm jvd tds, neck supple ctab, nl effort RRR nl s1, s2 no mrg + bs soft nt nd obese ext with trace edema to thigh venous stasis changes, bulla s/p LE amputation aaox3 no jaundice, diaphoresis CBC, BMP 07/02/16 06:00 07/03/16 06:00 EKG: SR, RBBB, bline inferolateral q waves. no acute ischemic changes. tele: SR occ pvc, occ sinus exit block. CXR: report and images reviewed. bilateral increased interstitial lung markings. by my review also trace fluid in fissure, possible mild congestion. 06/2016 echo here: tds. Nl lv size/fn. RV not well seen. nl valves. 04/2015 echo [facility]: tds. nl lv/rv. 1+ mr 04/2015 dipyridamole stress [facility]: stach with RBBB, no further ekg changes. mod fixed apical defect with partial reversibility --> mod apical infarct with small area of periinfarct ischemia. inferobasal defect thought to be 2/2 attenuation. mild global HK, apical AK. EF 46% a/p: 61 yo with h/o HTN, HL, CAD s/p medically managed nstemi 2016 in setting of sepsis/wound infection, IDDM, followed by dr christie for DM neuropathy and wounds, PAD s/p LE stent and rt forefoot amputation, here with sob. CAD - prior history of medically managed nstemi 2016 (peak troponin 4) in setting of sepsis/wound infection. at that time cath was deferred due to active underlying infection - here with very mild troponin elevation (peak 0.85) in setting of renal disease with flat trend. Known underlying CAD. Not consistent with ACS. EKG without acute ischemic changes. No anginal sx's. OK to stop heparin and plavix. - con't asa, statin. start bb. - Once patient diuresed and renal function stabilizes, would repeat stress test for risk stratification (likely will need to be done as outpatient). Unclear at this time whether patient would be able to comply with DAPT, but if patient has 3vd may benefit from bypass. acute diastolic HF exacerbation - + volume overload, predominantly right sided congestion. In past diuresed with lasix 40 mg IV bid --> have initiated the same regimen here --> uptitrated to 100 mg q [address] of IV drip. . - diuresing well, cr stable, - daily weights, bmp, i/o's. - monitor cr with diuresis. - 07/02: lasix drip held in am b/c of hypotension. Asx. Still with residual edema and remains significantly above prior standing weights. Subsequent bp's okay --> resume 100 mg IV BID. monitor for need to downtitrate regimen. - 07/03: Remained net negative with ongoing weight loss, but hyponatremia/bun/cr worsening. Will downtitrate regimen further for tomorrow. Already s/p 100 mg lasix this am. PAD s/p LE stent and rt forefoot amputation - con't asa, statin HTN -cont low dose bb. holding shawanda-i while with sulema. HL - cont statin ckd/sulema: -monitor with diuresis
[2016-07-03] MEDS ORDERED: INSULIN (NOVOLOG) ASPART 100 UNITS/ML 10ML VIAL ONE ×3 (16:45→22:23)
[2016-07-03] MEDS ORDERED: INSULIN (NOVOLOG MIX 70/30) 100 UNITS/ML MDV SQ ONE (18:15)
[2016-07-03] MEDS: ATORVASTATIN CA 80 MG TABLET (FP) PO SCH (22:28)
[2016-07-03] MEDS: clonazePAM 0.5 MG TABLET PO SCH (22:28)
[2016-07-04] MEDS: INSULIN (NOVOLOG MIX 70/30) 100 UNITS/ML MDV SQ SCH ×2 (06:10→17:36)
[2016-07-04] MEDS: INSULIN SLIDING SCALE (NOVOLOG) 1 VIAL SQ SCH ×4 (06:11→21:13)
[2016-07-04 07:21] LABS: BASOPHIL 0.7 % (0-2.0); EOSINOPHIL 5.6 % (0-4.5); MCH 28.1 pg (25.7-33.7); MCHC 33.2 g/dl (32.0-35.9); MEAN CELL VOLUME 84.5 fl (80-96); MEAN PLT VOLUME 9.2 fl (7.5-11.1); NEUTROPHILS 64.8 % (42.8-82.8); PLATELET COUNT 247 K/MM3 (134-434); RDW 14.1 % (11.9-15.9)
[2016-07-04 07:34] LABS: ALBUMIN 3.7 g/dl (3.4-5.0); BILIRUBIN,TOTAL 0.6 mg/dL (0.2-1.0); CALCIUM 9.5 mg/dL (8.5-10.1); COCKROFT - GAULT 69.4; MAGNESIUM 2.5 mg/dL (1.8-2.4); TOT PROT 7.7 g/dl (6.4-8.2)
[2016-07-04] MEDS: PANTOPRAZOLE 40 MG TABLET (FP) PO SCH (09:33)
[2016-07-04] MEDS: ASPIRIN COATED 81 MG TABLET.EC PO SCH (09:33)
[2016-07-04] MEDS: METOPROLOL SUCCINATE 25 MG TAB.SR.24H (FP) PO SCH (09:33)
[2016-07-04] MEDS: MUPIROCIN 2% TOPICAL OINTMENT 22 GM TUBE TP SCH ×2 (09:33→21:25)
[2016-07-04] MEDS: [UNRECOGNIZED DRUG - REMARK] PO SCH (09:34)
[2016-07-04] MEDS: CEFAZOLIN (PRE-DOCKED) 50 ML IVPB SCH ×2 (09:34→21:18)
--- NOTE | 2016-07-04 09:38 | PN ---
Progress Note (short form) - Note Progress Note: Renal Follow up for MIREYA Pt seen and examined at the bedside feels better had cramping of hands and legs yesterday good urine output edema improved Vital Signs Temperature 97.5 F L 07/04/16 06:00 Pulse Rate 71 07/04/16 06:00 Respiratory Rate 18 07/04/16 06:00 Blood Pressure 116/69 07/04/16 06:00 O2 Sat by Pulse Oximetry (%) 95 07/03/16 21:00 Intake & Output 07/01/16 07/02/16 07/03/16 07/04/16 23:59 23:59 23:59 23:59 Intake Total 7100 825 7371 150 Output Total 1600 3630 650 Balance 1770 -730 -2500 -500 Weight 278 lb 6 oz 273 lb 3.2 oz 271 lb 6 oz 272 lb 0.2 oz Gen: NAD, awake and alert. CVS: RRR, No M/R Lungs: CTA, no rales or wheeze Abd: soft NT/ND. Obese Ext: Trace Le edema (improving) CBC, BMP 07/04/16 06:00 07/04/16 06:00 Laboratory Tests 07/04/16 06:00 Calcium 9.5 Phosphorus 4.0 Magnesium 2.5 H Albumin 3.7 Current Medications Acetaminophen (Tylenol -) 650 mg PO Q4H PRN PRN Reason: FEVER OR PAIN Aspirin (Ecotrin -) 81 mg PO DAILY [facility] Last Admin: 07/04/16 09:33 Dose: 81 mg Atorvastatin Calcium (Lipitor -) 80 mg PO HS [facility] Last Admin: 07/03/16 22:28 Dose: 80 mg Clonazepam (Klonopin -) 0.5 mg PO HS [facility] Last Admin: 07/03/16 22:28 Dose: 0.5 mg Furosemide (Lasix Injection -) 80 mg IVPUSH DAILY [facility] Last Admin: 07/04/16 09:33 Dose: 80 mg Cefazolin Sodium (Ancef 1gm Ivpb (Pre-Docked)) 50 mls @ 100 mls/hr IVPB BID [facility] Last Admin: 07/04/16 09:34 Dose: 100 mls/hr Insulin Aspart (Novolog Vial Sliding Scale -) 1 vial SQ ACHS [facility] PRN Reason: Protocol Last Admin: 07/04/16 06:11 Dose: 2 units Insulin Aspart (Novolog Mix 70/30 Vial) 40 units SQ BIDI [facility] Last Admin: 07/04/16 06:10 Dose: 40 units Metoprolol Succinate (Toprol Xl -) 25 mg PO DAILY [facility] Last Admin: 07/04/16 09:33 Dose: 25 mg Mupirocin (Bactroban 2% Ointment -) 1 applic TP BID [facility] Last Admin: 07/04/16 09:33 Dose: 1 applic Pt's Own Med (Non- Form) (Canagliflozin [Invokana] 100 Mg) 100 mg PO DAILY [facility] Last Admin: 07/04/16 09:34 Dose: 100 mg Pantoprazole Sodium (Protonix -) 40 mg PO DAILY [facility] Last Admin: 07/04/16 09:33 Dose: 40 mg A/P 61 year old Gentleman with PMhx of CAD, IDDM, Diabetic Neuropathy, Hypertension who presented with SOB/EPSTEIN and LE edema and found to have acute CHF with BUN/Cr of 47/1.9 (baseline Cr 1.2). #Acute Renal Insufficiency in setting of Diastolic CHF and volume overload Renal function w/o significant improvement but stable on IV diuretics expect some improvement as diuretics are titrated down Trend BUN/Cr outpatient follow up on discharge #Acute HF Cardiology following Titrate IV lasix as per cardiology off ACEi, once evolemic and on stable dose of Lasix can restart ACEi #LE wound/PVD wound care cultures grew staph on Ancef Thank you Shamir Reynoso DO
[2016-07-04] MEDS ORDERED: FUROSEMIDE 100 MG/10 ML INJECTABLE VIAL IVPUSH SCH ×2 (10:00)
--- NOTE | 2016-07-04 11:41 | PN ---
Progress Note, Physician Chief Complaint: Feels better; no leg or hand cramping today. History of Present Illness: Patient with multiple medical problems including acute on chronic renal failure , DM uncontrolled,Amputation right foot, ASHD, Acute on Chronic CHF and new blister and scab right tibia is improving. Still excellent urine out and slightly improved renal lab. BGM's also trending downward. Slept better and sitting at bedside not SOB. No leg or hand cramping today. - Current Medication List Current Medications: Active Medications Acetaminophen (Tylenol -) 650 mg PO Q4H PRN PRN Reason: FEVER OR PAIN Aspirin (Ecotrin -) 81 mg PO DAILY [facility] Last Admin: 07/04/16 09:33 Dose: 81 mg Atorvastatin Calcium (Lipitor -) 80 mg PO HS [facility] Last Admin: 07/03/16 22:28 Dose: 80 mg Clonazepam (Klonopin -) 0.5 mg PO HS [facility] Last Admin: 07/03/16 22:28 Dose: 0.5 mg Furosemide (Lasix Injection -) 80 mg IVPUSH DAILY [facility] Last Admin: 07/04/16 09:33 Dose: 80 mg Cefazolin Sodium (Ancef 1gm Ivpb (Pre-Docked)) 50 mls @ 100 mls/hr IVPB BID [facility] Last Admin: 07/04/16 09:34 Dose: 100 mls/hr Insulin Aspart (Novolog Vial Sliding Scale -) 1 vial SQ ACHS [facility] PRN Reason: Protocol Last Admin: 07/04/16 06:11 Dose: 2 units Insulin Aspart (Novolog Mix 70/30 Vial) 40 units SQ BIDI [facility] Last Admin: 07/04/16 06:10 Dose: 40 units Metoprolol Succinate (Toprol Xl -) 25 mg PO DAILY [facility] Last Admin: 07/04/16 09:33 Dose: 25 mg Mupirocin (Bactroban 2% Ointment -) 1 applic TP BID [facility] Last Admin: 07/04/16 09:33 Dose: 1 applic Pt's Own Med (Non- Form) (Canagliflozin [Invokana] 100 Mg) 100 mg PO DAILY [facility] Last Admin: 07/04/16 09:34 Dose: 100 mg Pantoprazole Sodium (Protonix -) 40 mg PO DAILY [facility] Last Admin: 07/04/16 09:33 Dose: 40 mg - Objective Vital Signs: Vital Signs Temperature 97.5 F L 05/29/17 06:00 Pulse Rate 71 07/04/16 06:00 Respiratory Rate 18 07/04/16 06:00 Blood Pressure 116/69 07/04/16 06:00 O2 Sat by Pulse Oximetry (%) 95 07/03/16 21:00 Constitutional: Yes: Calm Cardiovascular: Yes: Regular Rate and Rhythm Respiratory: Yes: Diminished. No: Rales, Rhonchi Gastrointestinal: Yes: Soft. No: Tenderness Genitourinary: No: Weston Present Edema: LLE: Trace, RLE: Trace Wound/Incision: Yes: Dressing Removed (right foot healing well; left tibia blister) Labs: CBC, BMP 07/04/16 06:00 07/04/16 06:00 INR, PTT INR 1.01 (0.82-1.09) 06/27/16 17:20 Assessment/Plan Leg wound: On IV antibiotics DM: BGM's noted and on Rx ASHD:Stable without SOB and followed by Cardiology Renal failure: Followed by renal MD with slight improvement in values. F/U lab ordered Insomnia: Rx clonazepam .5mg PRN HS much improved.
--- NOTE | 2016-07-04 15:19 | PN ---
Progress Note (short form) - Note Progress Note: CC: HF exacerbation s: Downtitrating diuresis. Transitioned to lasix 100 mg IV daily yesterday and received 80 mg IV lasix this morning. no cp palps dizzy, sob, le edema o: Current Medications Acetaminophen (Tylenol -) 650 mg PO Q4H PRN PRN Reason: FEVER OR PAIN Aspirin (Ecotrin -) 81 mg PO DAILY [facility] Last Admin: 07/04/16 09:33 Dose: 81 mg Atorvastatin Calcium (Lipitor -) 80 mg PO HS [facility] Last Admin: 07/03/16 22:28 Dose: 80 mg Clonazepam (Klonopin -) 0.5 mg PO HS [facility] Last Admin: 07/03/16 22:28 Dose: 0.5 mg Furosemide (Lasix Injection -) 80 mg IVPUSH DAILY [facility] Last Admin: 07/04/16 09:33 Dose: 80 mg Cefazolin Sodium (Ancef 1gm Ivpb (Pre-Docked)) 50 mls @ 100 mls/hr IVPB BID [facility] Last Admin: 07/04/16 09:34 Dose: 100 mls/hr Insulin Aspart (Novolog Vial Sliding Scale -) 1 vial SQ ACHS [facility] PRN Reason: Protocol Last Admin: 07/04/16 12:00 Dose: Not Given Insulin Aspart (Novolog Mix 70/30 Vial) 40 units SQ BIDI [facility] Last Admin: 07/04/16 06:10 Dose: 40 units Metoprolol Succinate (Toprol Xl -) 25 mg PO DAILY [facility] Last Admin: 07/04/16 09:33 Dose: 25 mg Mupirocin (Bactroban 2% Ointment -) 1 applic TP BID [facility] Last Admin: 07/04/16 09:33 Dose: 1 applic Pt's Own Med (Non- Form) (Canagliflozin [Invokana] 100 Mg) 100 mg PO DAILY [facility] Last Admin: 07/04/16 09:34 Dose: 100 mg Pantoprazole Sodium (Protonix -) 40 mg PO DAILY [facility] Last Admin: 07/04/16 09:33 Dose: 40 mg Vital Signs - 24 hr 07/03/16 07/03/16 07/03/16 17:57 21:00 22:20 Temperature 98 F 98.1 F Pulse Rate 86 82 Respiratory 18 18 18 Rate Blood Pressure 107/80 158/82 O2 Sat by Pulse 95 Oximetry (%) 07/04/16 07/04/16 07/04/16 01:58 06:00 10:00 Temperature 97.6 F 97.5 F L 97.9 F Pulse Rate 74 71 78 Respiratory 18 18 18 Rate Blood Pressure 105/53 116/69 130/80 O2 Sat by Pulse 95 Oximetry (%) 07/04/16 13:51 Temperature 97.9 F Pulse Rate 74 Respiratory 18 Rate Blood Pressure 114/66 O2 Sat by Pulse Oximetry (%) Intake & Output 07/02/16 07/03/16 07/04/16 07/05/16 07:59 07:59 07:59 07:59 Intake Total 2869 509 2380 Output Total 3830 2050 Balance 1540 -3030 -870 Weight 273 lb 3.2 oz 271 lb 6 oz 272 lb 0.2 oz NAD, calm jvd tds, neck supple ctab nl effort RRR nl s1, s2 no mrg + bs soft nt nd obese ext with trace edema venous stasis changes s/p LE amputation aaox3 no jaundice, diaphoresis CBC, BMP 07/04/16 06:00 07/04/16 06:00 Laboratory Tests 07/04/16 06:00 Magnesium 2.5 H Total Bilirubin 0.6 D AST 21 ALT 19 D Alkaline Phosphatase 66 EKG: SR, RBBB, bline inferolateral q waves. no acute ischemic changes. tele: SR occ pvc CXR: report and images reviewed. bilateral increased interstitial lung markings. by my review also trace fluid in fissure, possible mild congestion. 06/2016 echo here: tds. Nl lv size/fn. RV not well seen. nl valves. 04/2015 echo [facility]: tds. nl lv/rv. 1+ mr 04/2015 dipyridamole stress [facility]: stach with RBBB, no further ekg changes. mod fixed apical defect with partial reversibility --> mod apical infarct with small area of periinfarct ischemia. inferobasal defect thought to be 2/2 attenuation. mild global HK, apical AK. EF 46% a/p: 61 yo with h/o HTN, HL, CAD s/p medically managed nstemi 2015 in setting of sepsis/wound infection, IDDM, followed by dr christie for DM neuropathy and wounds, PAD s/p LE stent and rt forefoot amputation, here with sob. CAD - prior history of medically managed nstemi 2016 (peak troponin 4) in setting of sepsis/wound infection. at that time cath was deferred due to active underlying infection - here with very mild troponin elevation (peak 0.85) in setting of renal disease with flat trend. Known underlying CAD. Not consistent with ACS. EKG without acute ischemic changes. No anginal sx's. OK to stop heparin and plavix. - con't asa, statin. start bb. - Once patient diuresed, would repeat stress test for risk stratification. Unclear at this time whether patient would be able to comply with DAPT, but if patient has 3vd may benefit from bypass. acute diastolic HF exacerbation - + volume overload, predominantly right sided congestion. In past diuresed with lasix 40 mg IV bid --> have initiated the same regimen here --> uptitrated to 100 mg q [address] of IV drip. . - diuresing well, cr stable, - daily weights, bmp, i/o's. - monitor cr with diuresis. - 07/02: lasix drip held in am b/c of hypotension. Asx. Still with residual edema and remains significantly above prior standing weights. Subsequent bp's okay --> resume 100 mg IV BID. monitor for need to downtitrate regimen. - 07/03: Remained net negative with ongoing weight loss, but hyponatremia/bun/cr worsening. Will downtitrate regimen further for tomorrow. Already s/p 100 mg lasix this am. - 07/04: IV lasix decreased to 80 mg this am. Weight slightly up today. will try transitioning to po regimen (torsemide 100 mg/day), con't to monitor renal function. PAD s/p LE stent and rt forefoot amputation - con't asa, statin HTN -cont low dose bb. holding shawanda-i while with sulema. - bp still intermittently low. remains on abx for cellulitis HL - cont statin ckd/sulema: -monitor with diuresis, renal following
[2016-07-04] MEDS ORDERED: INSULIN (NOVOLOG MIX 70/30) 100 UNITS/ML MDV SQ ONE (17:35)
[2016-07-04] MEDS: clonazePAM 0.5 MG TABLET PO SCH (21:18)
[2016-07-04] MEDS: ATORVASTATIN CA 80 MG TABLET (FP) PO SCH (21:18)
[2016-07-04] MEDS ORDERED: PT OWN MED DRAWER 7, Y5N ONE (21:24)
[2016-07-05] MEDS: INSULIN SLIDING SCALE (NOVOLOG) 1 VIAL SQ SCH ×2 (06:05→10:44)
[2016-07-05 07:08] LABS: MCH 28.3 pg (25.7-33.7); MCHC 33.5 g/dl (32.0-35.9); MEAN CELL VOLUME 84.7 fl (80-96); MEAN PLT VOLUME 9.1 fl (7.5-11.1); NEUTROPHILS 68.4 % (42.8-82.8); PLATELET COUNT 244 K/MM3 (134-434); RDW 14.5 % (11.9-15.9); WHITE BLOOD COUNT 9.2 K/mm3 (4.0-10.0)
[2016-07-05 07:27] LABS: CALCIUM 9.4 mg/dL (8.5-10.1); COCKROFT - GAULT 81.68; CREATININE 1.7 mg/dL (0.7-1.3)
[2016-07-05] MEDS: INSULIN (NOVOLOG MIX 70/30) 100 UNITS/ML MDV SQ SCH (08:40)
[2016-07-05] MEDS ORDERED: TORSEMIDE 100 MG TABLET PO SCH (10:00)
--- NOTE | 2016-07-05 10:04 | PN ---
Progress Note (short form) - Note Progress Note: CC: HF exacerbation s: Downtitrating diuresis. Received 80 mg IV lasix yesterday. Transitioning to PO torsemide this morning. no cp palps dizzy, sob, le edema o: Current Medications Acetaminophen (Tylenol -) 650 mg PO Q4H PRN PRN Reason: FEVER OR PAIN Aspirin (Ecotrin -) 81 mg PO DAILY [facility] Last Admin: 07/04/16 09:33 Dose: 81 mg Atorvastatin Calcium (Lipitor -) 80 mg PO HS [facility] Last Admin: 07/04/16 21:18 Dose: 80 mg Clonazepam (Klonopin -) 0.5 mg PO HS [facility] Last Admin: 07/04/16 21:18 Dose: 0.5 mg Cefazolin Sodium (Ancef 1gm Ivpb (Pre-Docked)) 50 mls @ 100 mls/hr IVPB BID [facility] Last Admin: 07/04/16 21:18 Dose: 100 mls/hr Insulin Aspart (Novolog Vial Sliding Scale -) 1 vial SQ ACHS [facility] PRN Reason: Protocol Last Admin: 07/05/16 06:05 Dose: Not Given Insulin Aspart (Novolog Mix 70/30 Vial) 40 units SQ BIDI [facility] Last Admin: 07/05/16 08:40 Dose: 40 units Metoprolol Succinate (Toprol Xl -) 25 mg PO DAILY [facility] Last Admin: 07/04/16 09:33 Dose: 25 mg Mupirocin (Bactroban 2% Ointment -) 1 applic TP BID [facility] Last Admin: 07/04/16 21:25 Dose: 1 applic Pt's Own Med (Non- Form) (Canagliflozin [Invokana] 100 Mg) 100 mg PO DAILY [facility] Last Admin: 07/04/16 09:34 Dose: 100 mg Pantoprazole Sodium (Protonix -) 40 mg PO DAILY [facility] Last Admin: 07/04/16 09:33 Dose: 40 mg Torsemide (Demadex -) 100 mg PO DAILY [facility] Vital Signs - 24 hr 07/04/16 07/04/16 07/04/16 13:51 17:00 21:00 Temperature 97.9 F 97.8 F 97.9 F Pulse Rate 74 68 65 Respiratory 18 18 20 Rate Blood Pressure 114/66 133/68 131/85 O2 Sat by Pulse 99 Oximetry (%) 07/05/16 07/05/16 07/05/16 02:00 06:00 07:27 Temperature 98.7 F 97.9 F Pulse Rate 74 85 Respiratory 20 20 20 Rate Blood Pressure 124/61 114/68 O2 Sat by Pulse 96 Oximetry (%) Intake & Output 07/03/16 07/04/16 07/05/16 07/06/16 07:59 07:59 07:59 07:59 Intake Total 800 1180 675 Output Total 3830 2050 2700 Balance -3030 -870 -2024 Weight 271 lb 6 oz 272 lb 0.2 oz 272 lb 2 oz NAD, calm jvd tds, neck supple ctab nl effort RRR nl s1, s2 no mrg + bs soft nt nd obese ext with trace edema venous stasis changes s/p LE amputation aaox3 no jaundice, diaphoresis CBC, BMP 07/05/16 06:00 07/05/16 06:00 Laboratory Tests 07/04/16 06:00 Total Bilirubin 0.6 D AST 21 ALT 19 D Alkaline Phosphatase 66 EKG: SR, RBBB, bline inferolateral q waves. no acute ischemic changes. tele: SR, marco, 1 nsvt CXR: report and images reviewed. bilateral increased interstitial lung markings. by my review also trace fluid in fissure, possible mild congestion. 06/2016 echo here: tds. Nl lv size/fn. RV not well seen. nl valves. 04/2015 echo [facility]: tds. nl lv/rv. 1+ mr 04/2015 dipyridamole stress [facility]: stach with RBBB, no further ekg changes. mod fixed apical defect with partial reversibility --> mod apical infarct with small area of periinfarct ischemia. inferobasal defect thought to be 2/2 attenuation. mild global HK, apical AK. EF 46% a/p: 61 yo with h/o HTN, HL, CAD s/p medically managed nstemi 2016 in setting of sepsis/wound infection, IDDM, followed by dr christie for DM neuropathy and wounds, PAD s/p LE stent and rt forefoot amputation, here with sob. CAD - prior history of medically managed nstemi 2016 (peak troponin 4) in setting of sepsis/wound infection. at that time cath was deferred due to active underlying infection - here with very mild troponin elevation (peak 0.85) in setting of renal disease with flat trend. Known underlying CAD. Not consistent with ACS. EKG without acute ischemic changes. No anginal sx's. OK to stop heparin and plavix. - con't asa, statin. start bb. - Once patient diuresed, would repeat stress test for risk stratification. Unclear at this time whether patient would be able to comply with DAPT, but if patient has 3vd may benefit from bypass. acute diastolic HF exacerbation - + volume overload, predominantly right sided congestion. In past diuresed with lasix 40 mg IV bid --> have initiated the same regimen here --> uptitrated to 100 mg q [address] of IV drip. . - diuresing well, cr stable, - daily weights, bmp, i/o's. - monitor cr with diuresis. - 07/02: lasix drip held in am b/c of hypotension. Asx. Still with residual edema and remains significantly above prior standing weights. Subsequent bp's okay --> resume 100 mg IV BID. monitor for need to downtitrate regimen. - 07/03: Remained net negative with ongoing weight loss, but hyponatremia/bun/cr worsening. Will downtitrate regimen further for tomorrow. Already s/p 100 mg lasix this am. - 07/04: IV lasix decreased to 80 mg this am. Weight slightly up today. will try transitioning to po regimen (torsemide 100 mg/day), con't to monitor renal function. - 07/05: weight stable, renal function improving. transitioned to 100 mg po torsemide today PAD s/p LE stent and rt forefoot amputation - con't asa, statin HTN -cont low dose bb. holding shawanda-i while with sulema. - bp has been intermittently low, now improved. remains on abx for cellulitis HL - cont statin ckd/sulema: -monitor with diuresis, renal following
[2016-07-05] MEDS ORDERED: PT OWN MED DRAWER 7, Y5N ONE ×2 (10:06→12:14)
[2016-07-05] MEDS: METOPROLOL SUCCINATE 25 MG TAB.SR.24H (FP) PO SCH (10:14)
[2016-07-05] MEDS: ASPIRIN COATED 81 MG TABLET.EC PO SCH (10:14)
[2016-07-05] MEDS: CEFAZOLIN (PRE-DOCKED) 50 ML IVPB SCH (10:14)
[2016-07-05] MEDS: PANTOPRAZOLE 40 MG TABLET (FP) PO SCH (10:14)
[2016-07-05] MEDS: [UNRECOGNIZED DRUG - REMARK] PO SCH (10:14)
[2016-07-05] MEDS: MUPIROCIN 2% TOPICAL OINTMENT 22 GM TUBE TP SCH (10:17)
[2016-07-05] MEDS ORDERED: INSULIN (NOVOLOG) ASPART 100 UNITS/ML 10ML VIAL ONE (10:39)
[2016-07-05 10:48] VITALS: BP 154/85; PULSE 86; TEMP 98.4
--- NOTE | 2016-07-05 11:03 | PN ---
Progress Note (short form) - Note Progress Note: Renal Follow up for MIREYA Pt seen and examined at the bedside no acute complaints good urine output to start oral torsemdie today Vital Signs Temperature 98.4 F 07/05/16 09:00 Pulse Rate 86 07/05/16 09:00 Respiratory Rate 20 07/05/16 09:00 Blood Pressure 154/85 07/05/16 09:00 O2 Sat by Pulse Oximetry (%) 96 07/05/16 07:27 Intake & Output 07/02/16 07/03/16 07/04/16 07/05/16 23:59 23:59 23:59 23:59 Intake Total 870 1130 825 Output Total 1600 3630 2150 1200 Balance -730 -2500 -1325 -1200 Weight 273 lb 3.2 oz 271 lb 6 oz 272 lb 0.2 oz 272 lb 2 oz Gen: NAD, awake and alert. CVS: RRR, No M/R Lungs: CTA, no rales or wheeze Abd: soft NT/ND. Obese Ext: Trace Le edema (improving) CBC, BMP 07/05/16 06:00 07/05/16 06:00 Laboratory Tests 07/05/16 06:00 Calcium 9.4 Current Medications Acetaminophen (Tylenol -) 650 mg PO Q4H PRN PRN Reason: FEVER OR PAIN Aspirin (Ecotrin -) 81 mg PO DAILY [facility] Last Admin: 07/05/16 10:14 Dose: 81 mg Atorvastatin Calcium (Lipitor -) 80 mg PO HS [facility] Last Admin: 07/04/16 21:18 Dose: 80 mg Clonazepam (Klonopin -) 0.5 mg PO HS [facility] Last Admin: 07/04/16 21:18 Dose: 0.5 mg Cefazolin Sodium (Ancef 1gm Ivpb (Pre-Docked)) 50 mls @ 100 mls/hr IVPB BID [facility] Last Admin: 07/05/16 10:14 Dose: 100 mls/hr Insulin Aspart (Novolog Vial Sliding Scale -) 1 vial SQ ACHS [facility] PRN Reason: Protocol Last Admin: 07/05/16 10:44 Dose: 2 units Insulin Aspart (Novolog Mix 70/30 Vial) 40 units SQ BIDI [facility] Last Admin: 07/05/16 08:40 Dose: 40 units Metoprolol Succinate (Toprol Xl -) 25 mg PO DAILY [facility] Last Admin: 07/05/16 10:14 Dose: 25 mg Mupirocin (Bactroban 2% Ointment -) 1 applic TP BID [facility] Last Admin: 07/05/16 10:17 Dose: 1 applic Pt's Own Med (Non- Form) (Canagliflozin [Invokana] 100 Mg) 100 mg PO DAILY [facility] Last Admin: 07/05/16 10:14 Dose: 100 mg Pantoprazole Sodium (Protonix -) 40 mg PO DAILY [facility] Last Admin: 07/05/16 10:14 Dose: 40 mg Torsemide (Demadex -) 100 mg PO DAILY [facility] Last Admin: 07/05/16 10:44 Dose: 100 mg A/P 61 year old Gentleman with PMhx of CAD, IDDM, Diabetic Neuropathy, Hypertension who presented with SOB/EPSTEIN and LE edema and found to have acute CHF with BUN/Cr of 47/1.9 (baseline Cr 1.2). #Acute Renal Insufficiency in setting of Diastolic CHF and volume overload Renal function with mild improvement to a Cr of 1.7 continue oral diuretics as per Cardiology Trend BUN/Cr, electrolytes #Acute HF Cardiology following to start oral diuretics today off ACEi, once evolemic and on stable dose of diuretics can restart ACEi #LE wound/PVD wound care cultures grew staph on Ancef Thank you Shamir Reynoso DO
--- NOTE | 2016-07-05 11:14 | DS ---
Physical Examination Vital Signs: Vital Signs Temperature 98.4 F 07/05/16 09:00 Pulse Rate 86 07/05/16 09:00 Respiratory Rate 20 07/05/16 09:00 Blood Pressure 154/85 07/05/16 09:00 O2 Sat by Pulse Oximetry (%) 96 07/05/16 07:27 Constitutional: Yes: No Distress, Calm, Obese Cardiovascular: Yes: Regular Rate and Rhythm. No: Gallop, Murmur, Rub Respiratory: Yes: Regular, CTA Bilaterally. No: Rales, Rhonchi, Wheezes Gastrointestinal: Yes: Normal Bowel Sounds, Soft. No: Distention, Tenderness Extremities: Yes: Amputation Edema: No Labs: CBC, BMP 07/05/16 06:00 07/05/16 06:00 Discharge Summary Reason For Visit: CHF/CKD STAGE III/HYPERTENSION/CHEST PAIN Current Active Problems Anasarca (Acute) CHF (congestive heart failure) (Acute) Chest pain (Acute) Diabetes mellitus (Acute) NSTEMI (non-ST elevated myocardial infarction) (Acute) Wound infection (Acute) CKD (chronic kidney disease) stage 3, GFR 30-59 ml/min (Chronic) Type 2 diabetes mellitus with peripheral neuropathy (Chronic) Hospital Course: (1) Wound infection Code(s): T14.8 - OTHER INJURY OF UNSPECIFIED BODY REGION L08.9 - LOCAL INFECTION OF THE SKIN AND SUBCUTANEOUS TISSUE, UNSP (2) NSTEMI (non-ST elevated myocardial infarction) Code(s): I21.4 - NON-ST ELEVATION (NSTEMI) MYOCARDIAL INFARCTION (3) CHF (congestive heart failure) Code(s): I50.9 - HEART FAILURE, UNSPECIFIED Qualifiers: Congestive heart failure type: diastolic Congestive heart failure chronicity: acute on chronic Qualified Code(s): I50.33 - Acute on chronic diastolic (congestive) heart failure (4) CKD (chronic kidney disease) stage 3, GFR 30-59 ml/min Code(s): N18.3 - CHRONIC KIDNEY DISEASE, STAGE 3 (MODERATE) (5) CAD (coronary artery disease) Code(s): I25.10 - ATHSCL HEART DISEASE OF [place] CORONARY ARTERY W/O ANG PCTRS Qualifiers: Coronary Disease-Associated Artery/Lesion type: [place] artery [place] vs. transplanted heart: [place] heart Associated angina: without angina Qualified Code(s): I25.10 - Atherosclerotic heart disease of [place] coronary artery without angina pectoris (6) Hyperlipidemia Code(s): E78.5 - HYPERLIPIDEMIA, UNSPECIFIED Qualifiers: Hyperlipidemia type: unspecified Qualified Code(s): E78.5 - Hyperlipidemia, unspecified (7) Hypertension Code(s): I10 - ESSENTIAL (PRIMARY) HYPERTENSION Qualifiers: Hypertension type: essential hypertension Qualified Code(s): I10 - Essential (primary) hypertension (8) PVD (peripheral vascular disease) Code(s): I73.9 - PERIPHERAL VASCULAR DISEASE, UNSPECIFIED (9) Diabetes mellitus Code(s): E11.9 - TYPE 2 DIABETES MELLITUS WITHOUT COMPLICATIONS Qualifiers: Diabetes mellitus type: type 2 Diabetes mellitus complication status: with kidney complications Diabetes mellitus complication detail: with chronic kidney disease Diabetes mellitus alf insulin use: with long term care administrator use Chronic kidney disease stage: stage 3 (moderate) Qualified Code(s): E11.22 - Type 2 diabetes mellitus with diabetic chronic kidney disease ; N18.1 - Chronic kidney disease, stage 1; Z79.4 - continuous churn buttermaker (current) use of insulin Mr Duarte is a pleasant 61 year old male who came in with CHF exacerbation and was found to have a wound infection. He was admitted to the hospital and seen by cardiology. He was diuresed with IV lasix. He was seen by nephrology since he had MIREYA on CKD. He tolerated diuresis well and his renal function improved, he had cardiorenal syndrome. He was seen by Dr Villalba for his chronic wound at his amputation site. Cultures were sent and it grew MSSA. He was started on cefazolin and successfully transitioned to keflex for a full course. He is feeling well and is stable for discharge. He was instructed to follow up with Dr Alexander and Dr Thompson this week. 32 minutes spent in preparation of this discharge Condition: Good - Instructions Diet, Activity, Other Instructions: diabetic diet. resume previous activity Referrals: Cornell Thompson MD [Staff Physician] - Veda Alexander MD [Primary Care Provider] - Shamir Reynoso MD [Staff Physician] - Disposition: HOME - Home Medications Comprehensive Discharge Medication List: Ambulatory Orders Insulin (Novolog) [Novolog Flexpen -] 0 units SQ TIDAC #0 pen 08/07/13 Aspirin Coated [Ecotrin -] 81 mg PO DAILY tablet.ec 04/30/15 Canagliflozin [Invokana] 100 mg PO DAILY 06/28/16 Insulin (Novolog 70/30) [Novolog Mix 70/30 Flexpen -] 40 units SQ BID 06/28/16 Atorvastatin Ca [Lipitor] 80 mg PO HS tablet 07/05/16 Cephalexin Monohydrate [Keflex -] 500 mg PO Q6H #12 capsule 07/05/16 Clonazepam [Klonopin -] 0.5 mg PO HS #30 tablet MDD 1mg 07/05/16 Metoprolol Succinate [Toprol XL -] 25 mg PO DAILY #30 tab.sr 07/05/16 Pantoprazole Sodium [Protonix -] 40 mg PO DAILY tab.ec 07/05/16 Torsemide [Demadex -] 100 mg PO DAILY #30 tablet 07/05/16
== END 2016-07-05 13:14 | disposition home or self-care (01) | DRG 280 ==
LOC: JER 14:47 → JERBED 20:03 → J4S 06-28 00:26
PROVIDERS: ADMIT Internal Medicine; ATTEND Internal Medicine
DX: I13.0 Hypertensive heart and chronic kidney disease with heart failure and stage 1 through stage 4 chronic kidney disease, or unspecified chronic kidney disease (principal); I50.31 Acute diastolic (congestive) heart failure; I21.4 Non-ST elevation (NSTEMI) myocardial infarction; T87.43 Infection of amputation stump, right lower extremity; N17.9 Acute kidney failure, unspecified; Z68.41 Body mass index [BMI] 40.0-44.9, adult; L08.9 Local infection of the skin and subcutaneous tissue, unspecified; I25.10 Atherosclerotic heart disease of native coronary artery without angina pectoris; E11.42 Type 2 diabetes mellitus with diabetic polyneuropathy; E11.65 Type 2 diabetes mellitus with hyperglycemia; R60.1 Generalized edema; E78.5 Hyperlipidemia, unspecified; A49.01 Methicillin susceptible Staphylococcus aureus infection, unspecified site; I73.9 Peripheral vascular disease, unspecified; E11.22 Type 2 diabetes mellitus with diabetic chronic kidney disease; N18.3 Chronic kidney disease, stage 3 (moderate); E11.21 Type 2 diabetes mellitus with diabetic nephropathy; G47.00 Insomnia, unspecified; Y83.9 Surgical procedure, unspecified as the cause of abnormal reaction of the patient, or of later complication, without mention of misadventure at the time of the procedure; E66.9 Obesity, unspecified; Z71.3 Dietary counseling and surveillance; Z79.4 Long term (current) use of insulin; Z89.431 Acquired absence of right foot; Z87.891 Personal history of nicotine dependence
CPT/HCPCS: 36415; 71020-TC; 76775-TC; 80048; 80053; 81003; 82550; 82553; 82570; 83735; 83880; 84100; 84156; 84300; 84484; 84540; 85025; 85610; 85651; 85730; 86140; 87070; 87186; 87205; 93005; 93010; 93306-TC; 99285-25; J1644

== ENCOUNTER 2016-09-15 14:29 | Inpatient (IN) | payer BC ==
--- NOTE | 2016-09-15 15:31 | PDOC ---
History of Present Illness - General Chief Complaint: Shortness of Breath Stated Complaint: SOB Time Seen by Provider: 09/15/16 15:11 History Source: Patient - History of Present Illness Timing/Duration: reports: other Severity: reports: severe Associated Symptoms: reports: shortness of breath. denies: chest pain/soreness , cough, fever/chills Past History - Past Medical History Allergies/Adverse Reactions: Allergies Allergy/AdvReac Type Severity Reaction Status Date / Time No Known Drug Allergies Allergy Verified 09/15/16 14:34 Home Medications: Ambulatory Orders Insulin (Novolog) [Novolog Flexpen -] 0 units SQ TIDAC #0 pen 08/07/13 Aspirin Coated [Ecotrin -] 81 mg PO DAILY tablet.ec 04/30/15 Insulin (Novolog 70/30) [Novolog Mix 70/30 Flexpen -] 40 units SQ BID 06/28/16 Atorvastatin Ca [Lipitor] 80 mg PO HS #30 tablet 07/05/16 Clonazepam [Klonopin -] 0.5 mg PO HS #30 tablet MDD 1mg 07/05/16 Metoprolol Succinate [Toprol XL -] 25 mg PO DAILY #30 tab.sr 07/05/16 Pantoprazole Sodium [Protonix -] 40 mg PO DAILY #30 tab.ec 07/05/16 Torsemide [Demadex -] 150 mg PO DAILY 09/15/16 Anemia: No Asthma: No Cancer: No Cardiac Disorders: No CVA: No COPD: No CHF: No Dementia: No Diabetes: Yes GI Disorders: No Disorders: No HTN: Yes Hypercholesterolemia: Yes Liver Disease: No Seizures: No Thyroid Disease: No - Surgical History Abdominal Surgery: No Appendectomy: No Cardiac Surgery: No Cholecystectomy: No Lung Surgery: No Neurologic Surgery: No Orthopedic Surgery: No - Immunization History Immunization Up to Date: Yes - Psycho/Social/Smoking Cessation Hx Anxiety: No Suicidal Ideation: No Smoking Status: Yes Smoking History: Former smoker Have you smoked in the past 12 months: No Number of Cigarettes Smoked Daily: 10 If you are a former smoker, when did you quit?: 2016 Information on smoking cessation initiated: No 'Breaking Loose' booklet given: 04/10/15 Hx Alcohol Use: No Drug/Substance Use Hx: No Substance Use Type: None Hx Substance Use Treatment: No Review of Systems - Review of Systems Constitutional: No: Chills, Fever Respiratory: Yes: Shortness of Breath. No: Cough, Wheezing Cardiac (ROS): No: Chest Pain, Lightheadedness, Palpitations, Syncope *Physical Exam - Vital Signs Last Vital Signs Temp Pulse Resp BP Pulse Ox 98.0 F 96 H 20 124/86 95 09/15/16 14:34 09/15/16 14:34 09/15/16 14:34 09/15/16 14:34 09/15/16 14:34 - Physical Exam General Appearance: Yes: Appropriately Dressed. No: Apparent Distress HEENT: positive: Normal Voice Neck: positive: Supple Respiratory/Chest: positive: Lungs Clear, Normal Breath Sounds. negative: Respiratory Distress Cardiovascular: positive: Regular Rate, S1, S2 Extremity: positive: Pedal Edema Integumentary: positive: Dry, Warm Neurologic: positive: Fully Oriented, Alert, Normal Mood/Affect ED Treatment Course - LABORATORY CBC & Chemistry Diagram: 09/15/16 15:45 09/15/16 15:45 - RADIOLOGY Radiology Studies Ordered: Category Date Time Status CHEST X-RAY PORTABLE* [RAD] Stat Radiology 09/15/16 15:17 Ordered Medical Decision Making - Medical Decision Making 09/15/16 15:27 61 yo M, morbidly obesed w/ h/o HTN, PAD w/ LE angioplasty, IDDM, s/p R forefoot amputation, CAD, CHF on torsemide, chronic EPSTEIN, sleeps sitting up or "on my face", here w/ gradual worsening of his SOB x several weeks. Now unable to take several steps without becoming sob. States "I cant take it anymore". Denies CP, diaphoresis, n/v, cough or worsening edema See exam Worsening EPSTEIN in pt w/ CHF Stable w/ exam only remarkable for 1+ pitting to b/l LE -ekg -cxr -labs -cards c/w -anticipate admission 09/15/16 15:34 09/15/16 17:05 EKG unremarkable w/ BNP of ~1800 w/ tropenemia of 0.09 which m/l represent demand ischemia. Of note, pt always makes trops based on lab review. Renal function also worsening. Case discussed with with Dr. Schneider who is covering for Dr. Thompson, who states pt was diuresed w/ 80 IV Lasix during last admission and recommend administering 80 IV Lasix in ED now. Case d/w hospitalist and pt admitted 09/15/16 17:14 *DC/Admit/Observation/Transfer Diagnosis at time of Disposition: CHF exacerbation Qualifiers: Congestive heart failure type: unspecified congestive heart failure type Qualified Code(s): I50.9 - Heart failure, unspecified - Discharge Dispostion Condition at time of disposition: Fair Admit: Yes - Referrals Referrals: Veda Alexander MD [Primary Care Provider] -
[2016-09-15 15:54] LABS: EOSINOPHIL 4.2 % (0-4.5); MCH 27.6 pg (25.7-33.7); MCHC 33.2 g/dl (32.0-35.9); MEAN CELL VOLUME 83.2 fl (80-96); MEAN PLT VOLUME 9.6 fl (7.5-11.1); PLATELET COUNT 241 K/MM3 (134-434); RDW 14.9 % (11.9-15.9); WHITE BLOOD COUNT 9.8 K/mm3 (4.0-10.0)
[2016-09-15 16:18] LABS: ALBUMIN 3.6 g/dl (3.4-5.0); ANION GAP 12 (8-16); BILIRUBIN,TOTAL 0.5 mg/dL (0.2-1.0); CALCIUM 8.7 mg/dL (8.5-10.1); CO2 30 mmol/L (21-32); CREATININE 2.4 mg/dL (0.7-1.3); GLUCOSE,RANDOM 223 mg/dL (74-106); SGOT/AST 21 U/L (15-37); SGPT/ALT 28 U/L (12-78); TOT PROT 7.7 g/dl (6.4-8.2)
[2016-09-15 16:21] LABS: ALK PHOS 80 U/L (45-117); CPK 503 IU/L (39-308); TROPONIN I 0.09 ng/ml (0.00-0.05)
[2016-09-15 16:39] LABS: URINE APPEARANCE CLEAR; URINE BILIRUBIN NEGATIVE (NEGATIVE); URINE BLOOD 1+ (NEGATIVE); URINE COLOR STRAW; URINE GLUCOSE (UA) NEGATIVE (NEGATIVE); URINE KETONE NEGATIVE (NEGATIVE); URINE LEUK ESTERASE NEGATIVE (NEGATIVE); URINE NITRITE NEGATIVE (NEGATIVE); URINE PROTEIN NEGATIVE (NEGATIVE); URINE UROBILINOGEN NEGATIVE mg/dL (0.2-1.0)
[2016-09-15] MEDS ORDERED: FUROSEMIDE 40 MG/4 ML INJECTABLE VIAL IVPUSH ONE ×2 (16:54→17:09)
--- NOTE | 2016-09-15 17:12 | HP ---
CHIEF COMPLAINT: worsening shortness of breath PCP: Ben Grady HISTORY OF PRESENT ILLNESS: Patient is a 60 year old morbidly obese male with a significant past medical history of right foot wound s/p transmetatarsal amputation of right foot last year (post amputation patient had completed a six week course of antibiotic via a tunnelled catheter), diabetes mellitus type 2, CAD, diastolic CHF, hypertension and hyperlipidemia. Today patient comes in with complains of shortness of breath which worsened over the course of a few weeks. He is unable to take a few steps without becoming short of breath. He denies fever, chills, nausea vomiting, diaphoresis., cough or chest pain. He reports compliance with his home medications. ER course was notable for: (1) Troponin 0.09 (2) BNP 1822, EKG NSR (3) BUN 56/Creatinine 2.4 (4) Glucose 223 (5) Chest xray 09/15/2016: heart is slightly enlarged, suspicious for pulmonary vascular congestion. No pleural effusion, cardiomegaly and prop. mild congestion. (6) Mild erythema on left anterior lower leg with small areas of redness (7) +1 bilateral lower ext pitting edema Recent Travel: denies PAST MEDICAL HISTORY: right foot wound s/p transmetatarsal amputation of right foot last year (post amputation patient had completed a six week course of antibiotic via a tunnelled catheter), diabetes mellitus type 2, CAD, diastolic CHF, hypertension and hyperlipidemia. 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 PAST SURGICAL HISTORY: right foot wound s/p transmetatarsal amputation of right foot last year (post amputation patient had completed a six week course of antibiotic via a tunnelled catheter) Social History: Smoking: denies Alcohol: denies Drugs: denies Family History: Allergies No Known Drug Allergies Allergy (Verified 09/15/16 14:34) HOME MEDICATIONS: Home Medications Medication Instructions Recorded Insulin (Novolog) [Novolog Flexpen 0 units SQ TIDAC #0 pen 08/07/13 -] Aspirin Coated [Ecotrin -] 81 mg PO DAILY tablet.ec 04/30/15 Insulin (Novolog 70/30) [Novolog 40 units SQ BID 06/28/16 Mix 70/30 Flexpen -] Atorvastatin Ca [Lipitor] 80 mg PO HS #30 tablet 05/30/17 Clonazepam [Klonopin -] 0.5 mg PO HS #30 tablet MDD 1mg 07/05/16 Metoprolol Succinate [Toprol XL -] 25 mg PO DAILY #30 tab.sr 07/05/16 Pantoprazole Sodium [Protonix -] 40 mg PO DAILY #30 tab.ec 07/05/16 Torsemide [Demadex -] 150 mg PO DAILY 09/15/16 REVIEW OF SYSTEMS CONSTITUTIONAL: Absent: fever, chills, diaphoresis, malaise, loss of appetite, weight change HEENT: Absent: rhinorrhea, nasal congestion, throat pain, throat swelling, difficulty swallowing, mouth swelling, ear pain, eye pain, visual changes CARDIOVASCULAR: Absent: chest pain, syncope, palpitations, irregular heart rate, lightheadedness , RESPIRATORY: Absent: cough, wheezing, stridor, hemoptysis GASTROINTESTINAL: Absent: abdominal pain, abdominal distension, nausea, vomiting, diarrhea, constipation, melena, hematochezia GENITOURINARY: Absent: dysuria, frequency, urgency, hesitancy, hematuria, flank pain, genital pain MUSCULOSKELETAL: Absent: myalgia, arthralgia, joint swelling, back pain, neck pain SKIN: Absent: rash, itching, pallor HEMATOLOGIC/IMMUNOLOGIC: Absent: easy bleeding, easy bruising, lymphadenopathy, frequent infections ENDOCRINE: Absent: unexplained weight gain, unexplained weight loss, heat intolerance, cold intolerance NEUROLOGIC: Absent: headache, focal weakness or paresthesias, dizziness, unsteady gait, seizure, mental status changes, bladder or bowel incontinence PSYCHIATRIC: Absent: anxiety, depression, suicidal or homicidal ideation, hallucinations. PHYSICAL EXAMINATION Vital Signs - 24 hr 09/15/16 09/15/16 14:34 15:54 Temperature 98.0 F Pulse Rate 96 H Respiratory 20 Rate Blood Pressure 124/86 O2 Sat by Pulse 95 94 L Oximetry (%) GENERAL: Awake, alert, and fully oriented, in mild respiratory acute distress. HEAD: Normal with no signs of trauma. EYES: Pupils equal, round and reactive to light, extraocular movements intact, sclera anicteric, conjunctiva clear. No lid lag. EARS, NOSE, THROAT: Ears normal, nares patent, oropharynx clear without exudates. Moist mucous membranes. NECK: Normal range of motion, supple without lymphadenopathy LUNGS: Diminished breath sounds, +crackles at left lung base HEART: Regular rate and rhythm ABDOMEN: Soft, nontender, Obese abdomen UPPER EXTREMITIES: 2+ pulses, warm, well-perfused. No cyanosis. No clubbing. No peripheral edema. LOWER EXTREMITIES: right foot wound s/p transmetatarsal amputation of right foot last year, patient state this right foot was debrided today at Dr. Pino's office. NEUROLOGICAL: Normal speech. Normal gait. PSYCHIATRIC: Cooperative. Good eye contact. Appropriate mood and affect. SKIN: Warm, dry, normal turgor, no rashes or lesions noted, normal capillary refill. Laboratory Results - last 24 hr 09/15/16 09/15/16 09/15/16 15:45 15:45 15:45 WBC 9.8 RBC 4.58 Hgb 12.7 D Hct 38.1 D MCV 83.2 MCH 27.6 MCHC 33.2 RDW 14.9 Plt Count 241 MPV 9.6 Neutrophils % 75.0 Lymphocytes % 13.9 D Monocytes % 5.9 Eosinophils % 4.2 Basophils % 1.0 Sodium 137 Potassium 3.6 D Chloride 95 L Carbon Dioxide 30 Anion Gap 12 BUN 56 H Creatinine 2.4 H D Creat Clearance w eGFR 27.85 Random Glucose 223 H D Calcium 8.7 Total Bilirubin 0.5 AST 21 ALT 28 D Alkaline Phosphatase 80 D Creatine Kinase 503 H Creatine Kinase Index 1.0 CK-MB (CK-2) 5.156 H Troponin I 0.09 H D B-Natriuretic Peptide 1822.53 H Total Protein 7.7 Albumin 3.6 Urine Color Urine Appearance Urine pH Urine Protein Urine Glucose (UA) Urine Ketones Urine Blood Urine Nitrite Urine Bilirubin Urine Urobilinogen Ur Leukocyte Esterase 09/15/16 16:30 WBC RBC Hgb Hct MCV MCH MCHC RDW Plt Count MPV Neutrophils % Lymphocytes % Monocytes % Eosinophils % Basophils % Sodium Potassium Chloride Carbon Dioxide Anion Gap BUN Creatinine Creat Clearance w eGFR Random Glucose Calcium Total Bilirubin AST ALT Alkaline Phosphatase Creatine Kinase Creatine Kinase Index CK-MB (CK-2) Troponin I B-Natriuretic Peptide Total Protein Albumin Urine Color Straw Urine Appearance Clear Urine pH 6.0 Urine Protein Negative Urine Glucose (UA) Negative Urine Ketones Negative Urine Blood 1+ H Urine Nitrite Negative Urine Bilirubin Negative Urine Urobilinogen Negative Ur Leukocyte Esterase Negative ASSESSMENT/PLAN: Patient is a 60 year old morbidly obese male with a significant past medical history of right foot wound s/p transmetatarsal amputation of right foot last year (post amputation patient had completed a six week course of antibiotic via a tunnelled catheter), diabetes mellitus type 2, CAD, diastolic CHF, hypertension and hyperlipidemia. Today patient comes in with complains of shortness of breath which worsened over the course of a few weeks. He is unable to take a few steps without becoming short of breath. He denies fever, chills, nausea vomiting, diaphoresis, cough or chest pain. He reports compliance with his home medications. Cardiology: Acute CHF exacerbation vs. Rule out ACS A/P: Patient reports compliance with home medications Denies chest pain, only complaint is worsening shortness of breath BNP elevated @1822, given Lasix 80mg IV in ED Trop 0.09 x1, will trend Echo on 06/28/16: LV normal size, mild aortic sclerosis, no aortic regurg, no pericardial eff. Strict intake and output, daily weights Cardiology consulted Hypertension - chronic A/P: Monitor BP Started patient on home cardiac meds Telemonitoring Hyperlipidemia A/P: Lipid panel in a.m Pulmonary: Shortness of Breath - mild improvement with Lasix A/P: Chest xray 09/15/2016: heart is slightly enlarged, suspicious for pulmonary vascular congestion. No pleural effusion, cardiomegaly and prop. mild congestion. Patient reports less shortness of breath after Lasix 80mg IV today Tolerating room air, but will benefit from 2 liters of nasal cannula, will order same Renal: MIREYA - acute on chronic A/P: Crea 2.4 on admission, baseline line creat ~ 1.2 on prior admissions Was followed by renal on previous admission, will consult Endocrine: Diabetes Mellitus - chronic A/P: On Victoza 1.2 daily, Novolog 70/30 45 units in a.m, and 55 units @ hs Start home regimen, with sliding scale Victoza 1.2 NF in hospital Monitor BGMs Muscular/Skeletal: Right foot wound s/p Transmetatarsal amputation of right foot A/P: Pt reports debridement with Vascular surgery today, next debridement in 1 month Monitor wound + MRSA in foot wound on last admission, on contact precautions F.E.N. Fluids: tolerating PO, on Lasix Electrolytes: monitor with BMP daily, replete Nutrition: diabetic diet Prophylaxis: DVT: Heparin q8 GI: Protonix 40mg PO daily Disposition: Requires inpatient hospitalization. Full code. Visit type - Emergency Visit Emergency Visit: Yes ED Registration Date: 09/15/16 Care time: The patient presented to the Emergency Department on the above date and was hospitalized for further evaluation of their emergent condition. - New Patient This patient is new to me today: Yes Date on this admission: 09/15/16 - Critical Care Critical Care patient: No
[2016-09-15] MEDS ORDERED: FUROSEMIDE 40 MG/4 ML INJECTABLE VIAL ONE (17:16)
[2016-09-15 17:20] LABS: URINE MUCUS RARE; URINE RBC 1 /hpf (0-3)
--- NOTE | 2016-09-15 17:26 | PDOC ---
*Physical Exam - Vital Signs Last Vital Signs Temp Pulse Resp BP Pulse Ox 98.0 F 96 H 20 124/86 94 L 09/15/16 14:34 09/15/16 14:34 09/15/16 14:34 09/15/16 14:34 09/15/16 15:54 ED Treatment Course - LABORATORY CBC & Chemistry Diagram: 09/15/16 15:45 09/15/16 15:45 - ADDITIONAL ORDERS Additional order review: Laboratory Results 09/15/16 09/15/16 09/15/16 16:30 15:45 15:45 Sodium 137 Potassium 3.6 D Chloride 95 L Carbon Dioxide 30 Anion Gap 12 BUN 56 H Creatinine 2.4 H D Creat Clearance w eGFR 27.85 Random Glucose 223 H D Calcium 8.7 Total Bilirubin 0.5 AST 21 ALT 28 D Alkaline Phosphatase 80 D Creatine Kinase 503 H Creatine Kinase Index 1.0 CK-MB (CK-2) 5.156 H Troponin I 0.09 H D B-Natriuretic Peptide 1822.53 H Total Protein 7.7 Albumin 3.6 Urine Color Straw Urine Appearance Clear Urine pH 6.0 Urine Protein Negative Urine Glucose (UA) Negative Urine Ketones Negative Urine Blood 1+ H Urine Nitrite Negative Urine Bilirubin Negative Urine Urobilinogen Negative Ur Leukocyte Esterase Negative Urine RBC 1 Urine WBC None Ur Epithelial Cells Rare Urine Mucus Rare 09/15/16 15:45 RBC 4.58 MCV 83.2 MCHC 33.2 RDW 14.9 MPV 9.6 Neutrophils % 75.0 Lymphocytes % 13.9 D Monocytes % 5.9 Eosinophils % 4.2 Basophils % 1.0 Medical Decision Making - Medical Decision Making 09/15/16 17:25 I have seen and examined the patient with RESHMA Mcclain. I agree with her history, assessment, plan. *DC/Admit/Observation/Transfer Diagnosis at time of Disposition: CHF exacerbation Qualifiers: Congestive heart failure type: unspecified congestive heart failure type Qualified Code(s): I50.9 - Heart failure, unspecified - Discharge Dispostion Condition at time of disposition: Fair - Referrals Referrals: Veda Alexander MD [Primary Care Provider] - - Patient Instructions - Post Discharge Activity
[2016-09-15] MEDS: INSULIN SLIDING SCALE (NOVOLOG) 1 VIAL SQ SCH ×2 (18:04→22:47)
[2016-09-15] MEDS ORDERED: HEPARIN NA (PORCINE) 5,000 UNITS/ML 1ML VIAL ONE (19:13)
[2016-09-15] MEDS: HEPARIN NA (PORCINE) 5,000 UNITS/ML 1ML VIAL SQ SCH (19:17)
[2016-09-15] MEDS ORDERED: ATORVASTATIN CA 80 MG TABLET (FP) PO SCH (22:00)
[2016-09-15] MEDS ORDERED: clonazePAM 0.5 MG TABLET PO SCH (22:00)
[2016-09-15] MEDS: INSULIN (NOVOLOG MIX 70/30) 100 UNITS/ML MDV SQ SCH (22:45)
[2016-09-16 00:23] LABS: ANION GAP 14 (8-16); CALCIUM 8.7 mg/dL (8.5-10.1); CO2 29 mmol/L (21-32); CREATININE 2.2 mg/dL (0.7-1.3); GLUCOSE,RANDOM 214 mg/dL (74-106); MAGNESIUM 2.6 mg/dL (1.8-2.4)
--- NOTE | 2016-09-16 03:03 | HOSP ---
Subjective - Review of Symptoms Events since last encounter: Hospitalist Encounter Notified by the RN that the patient was having 7 second pauses. Arrived to bedside patient is asleep but arousable, he denies dizziness, chest pain and SOB. Apical pulse checked at bedside 86 bpm. Ordered pacer pads Stat, atropine at bedside, cardiology notified by RN, awaiting probable transfer to ICU. Reviewed EKG strips, pauses noted. Per RN, Dr. Schneider spoke with [employer]ical [employer] Technician [employer], who accepted the patient. Patient to transfer to ICU. Informed patient of the transfer, he is agreeable. Will continue to monitor, and inform Day team of this morning's events. Subjective: Physical Examination Vital Signs: Vital Signs Temperature 98.0 F 09/16/16 02:00 Pulse Rate 81 09/16/16 02:00 Respiratory Rate 20 09/16/16 02:00 Blood Pressure 122/62 09/16/16 02:00 O2 Sat by Pulse Oximetry (%) 96 09/16/16 00:00 Constitutional: Yes: Well Nourished, Obese Eyes: Yes: WNL, Conjunctiva Clear, PERRL HENT: Yes: WNL, Atraumatic, Normocephalic Neck: Yes: WNL, Supple, Trachea Midline Cardiovascular: Yes: Pulse Irregular, S1, S2 Respiratory: Yes: WNL, Regular, CTA Bilaterally Gastrointestinal: Yes: Normal Bowel Sounds, Abdomen, Obese Neurological: Yes: Lethargy (but arousable to verbal and tactile stimulus) Labs: CBC, BMP 09/15/16 23:14 Laboratory Results - last 24 hr 09/15/16 09/15/16 09/15/16 15:45 15:45 15:45 WBC 9.8 RBC 4.58 Hgb 12.7 D Hct 38.1 D MCV 83.2 MCH 27.6 MCHC 33.2 RDW 14.9 Plt Count 241 MPV 9.6 Neutrophils % 75.0 Lymphocytes % 13.9 D Monocytes % 5.9 Eosinophils % 4.2 Basophils % 1.0 Sodium 137 Potassium 3.6 D Chloride 95 L Carbon Dioxide 30 Anion Gap 12 BUN 56 H Creatinine 2.4 H D Creat Clearance w eGFR 27.85 POC Glucometer Random Glucose 223 H D Calcium 8.7 Magnesium Total Bilirubin 0.5 AST 21 ALT 28 D Alkaline Phosphatase 80 D Creatine Kinase 503 H Creatine Kinase Index 1.0 CK-MB (CK-2) 5.156 H Troponin I 0.09 H D B-Natriuretic Peptide 1822.53 H Total Protein 7.7 Albumin 3.6 Urine Color Urine Appearance Urine pH Ur Specific [place] Urine Protein Urine Glucose (UA) Urine Ketones Urine Blood Urine Nitrite Urine Bilirubin Urine Urobilinogen Ur Leukocyte Esterase Urine RBC Urine WBC Ur Epithelial Cells Urine Mucus 09/15/16 09/15/16 09/15/16 16:30 21:25 23:14 WBC RBC Hgb Hct MCV MCH MCHC RDW Plt Count MPV Neutrophils % Lymphocytes % Monocytes % Eosinophils % Basophils % Sodium 139 Potassium 3.8 Chloride 96 L Carbon Dioxide 29 Anion Gap 14 BUN 65 H Creatinine 2.2 H Creat Clearance w eGFR POC Glucometer 180 Random Glucose 214 H Calcium 8.7 Magnesium 2.6 H Total Bilirubin AST ALT Alkaline Phosphatase Creatine Kinase Creatine Kinase Index CK-MB (CK-2) Troponin I B-Natriuretic Peptide Total Protein Albumin Urine Color Straw Urine Appearance Clear Urine pH 6.0 Ur Specific [place] 1.010 Urine Protein Negative Urine Glucose (UA) Negative Urine Ketones Negative Urine Blood 1+ H Urine Nitrite Negative Urine Bilirubin Negative Urine Urobilinogen Negative Ur Leukocyte Esterase Negative Urine RBC 1 Urine WBC None Ur Epithelial Cells Rare Urine Mucus Rare 09/15/16 23:15 WBC RBC Hgb Hct MCV MCH MCHC RDW Plt Count MPV Neutrophils % Lymphocytes % Monocytes % Eosinophils % Basophils % Sodium Potassium Chloride Carbon Dioxide Anion Gap BUN Creatinine Creat Clearance w eGFR POC Glucometer Random Glucose Calcium Magnesium Total Bilirubin AST ALT Alkaline Phosphatase Creatine Kinase Creatine Kinase Index CK-MB (CK-2) Troponin I 0.21 H D B-Natriuretic Peptide Total Protein Albumin Urine Color Urine Appearance Urine pH Ur Specific [place] Urine Protein Urine Glucose (UA) Urine Ketones Urine Blood Urine Nitrite Urine Bilirubin Urine Urobilinogen Ur Leukocyte Esterase Urine RBC Urine WBC Ur Epithelial Cells Urine Mucus Current Medications Generic Name Dose Route Start Last Admin Trade Name Freq PRN Reason Stop Dose Admin Aspirin 81 mg 09/16/16 10:00 Ecotrin - PO DAILY IGGY Atorvastatin Calcium 80 mg 09/15/16 22:00 09/15/16 22:44 Lipitor - PO 80 mg HS IGGY Administration Clonazepam 0.5 mg 09/15/16 22:00 09/15/16 22:44 Klonopin - PO 0.5 mg HS IGGY Administration Heparin Sodium (Porcine) 5,000 unit 09/15/16 19:00 09/15/16 19:17 Heparin - SQ 5,000 unit TID IGGY Administration Insulin Aspart 1 vial 09/15/16 17:45 09/15/16 22:47 Novolog Vial Sliding Scale - SQ 2 units ACHS IGGY Administration Protocol Insulin Aspart 45 units 09/15/16 21:00 09/15/16 22:45 Novolog Mix 70/30 Vial SQ 45 unit BID@ IGGY Administration Metoprolol Succinate 25 mg 09/16/16 10:00 Toprol Xl - PO DAILY IGGY Pantoprazole Sodium 40 mg 09/16/16 10:00 Protonix - PO DAILY IGGY Potassium Chloride 40 meq 09/16/16 10:00 K-Dur - PO DAILY IGGY Intake & Output 09/13/16 09/14/16 09/15/16 09/16/16 23:59 23:59 23:59 23:59 Intake Total 100 Balance 100 Weight 128.849 kg Critical Care Total Critical Care Time (in minutes): 32 Critical Care Statement: The care of this patient involved high complexity decision making to prevent further life threatening deterioration of the patient 's condition and/or to evaluate & treat vital organ system(s) failure or risk of failure.
[2016-09-16] MEDS ORDERED: POTASSIUM CHLORIDE TABS 20 MEQ TABLET.ER (FP) PO ONE ×2 (03:11→05:44)
--- NOTE | 2016-09-16 03:41 | CONSULT ---
Consult Consult Specialty:: Critical Care Reason for Consultation:: cardiac pause - History of Present Illness Chief Complaint: "I couldn't breathe." History of Present Illness: This is a 61-year-old gentleman with a past medical history of morbid obesity, HTN, PAD, LE angioplasty, DM, s/p R foot amputation, CAD, diastolic CHF, chronic EPSTEIN, and SOB who presented with worsening SOB unable to ambulate even several feet with episode of 7-second pause on telemetry on the floor now admitted to the ICU for monitoring. Briefly, Mr. Duarte has a very extensive cardiac history and has had multiple admissions for heart failure exacerbations. He reports that at baseline he has SOB with walking that was worse over the past several weeks. As of late he was unable to ambulate even several feet which prompted him to present. He noted that he sleeps sitting upright and also endorses increased LE swelling. He denies chest pain, palpitations, cough, dizziness or fevers. In the ED his labs were notable for Cr 2.4 (most recent visit ~2), K 3.6, WBC 9.8, Trop 0.09, BNP 1822. His ECG revealed NSR and his initial CXR suggested pulmonary edema and cardiomegaly without clear infiltrate. He was admitted to telemetry and given Lasix 80 mg IV. Early this AM, around 2:30A, telemetry revealed a 7 second pause. At the time he was lethargic though reportedly had recently received Clonopin. He was transported to ICU for further monitoring. On arrival to ICU, he is alert and oriented, c/o SOB without visible increased WOB. VSS HR 87, BP 130s/60s, Satting 97% on 3L NC. ECG pending. Will send all STAT labs and obtain ABG. Likely needs NIV with sleeping for obesity hypoventilation. - History Source History Provided By: Patient Limitations to Obtaining History: No Limitations - Past Medical History Cardio/Vascular: Yes: CAD, HTN, Hyperlipdemia Musculoskeletal: Yes: Other (H/O osteomyelitis) Endocrine: Yes: Diabetes Mellitus - Past Surgical History Past Surgical History: Yes: Amputation - Alcohol/Substance Use Hx Alcohol Use: No History of Substance Use: reports: None - Smoking History Smoking history: Former smoker Have you smoked in the past 12 months: No Aproximately how many cigarettes per day: 10 If you are a former smoker, when did you quit?: 2016 - Social History ADL: Independent History of Recent Travel: No Home Medications - Allergies Allergies/Adverse Reactions: Allergies Allergy/AdvReac Type Severity Reaction Status Date / Time No Known Drug Allergies Allergy Verified 09/15/16 14:34 - Home Medications Home Medications: Ambulatory Orders Insulin (Novolog) [Novolog Flexpen -] 0 units SQ TIDAC #0 pen 08/07/13 Aspirin Coated [Ecotrin -] 81 mg PO DAILY tablet.ec 04/30/15 Insulin (Novolog 70/30) [Novolog Mix 70/30 Flexpen -] 40 units SQ BID 06/28/16 Atorvastatin Ca [Lipitor] 80 mg PO HS #30 tablet 07/05/16 Clonazepam [Klonopin -] 0.5 mg PO HS #30 tablet MDD 1mg 07/05/16 Metoprolol Succinate [Toprol XL -] 25 mg PO DAILY #30 tab.sr 07/05/16 Pantoprazole Sodium [Protonix -] 40 mg PO DAILY #30 tab.ec 07/05/16 Torsemide [Demadex -] 150 mg PO DAILY 09/15/16 Family Disease History - Family Disease History Family Disease History: Heart Disease: Father, Mother Review of Systems - Review of Systems Constitutional: reports: No Symptoms Eyes: reports: No Symptoms HENT: reports: No Symptoms Neck: reports: No Symptoms Cardiovascular: reports: Shortness of Breath Respiratory: reports: Exercise Intolerance, Orthopnea, PND, SOB, SOB on Exertion Gastrointestinal: reports: No Symptoms Genitourinary: reports: No Symptoms Musculoskeletal: reports: No Symptoms Integumentary: reports: Blister (B/L LE with reddened areas) Neurological: reports: No Symptoms Endocrine: reports: No Symptoms Physical Exam Vital Signs: Vital Signs Temperature 98.0 F 09/16/16 03:00 Pulse Rate 81 09/16/16 03:00 Respiratory Rate 20 09/16/16 03:00 Blood Pressure 120/68 09/16/16 03:00 O2 Sat by Pulse Oximetry (%) 96 09/16/16 00:00 Constitutional: Yes: Calm, Obese Eyes: Yes: WNL HENT: Yes: WNL Neck: Yes: Supple, Trachea Midline Cardiovascular: Yes: Pulse Irregular, S1, S2 Respiratory: Yes: Regular, Diminished, Rales Gastrointestinal: Yes: Abdomen, Obese, Distention, Hypoactive Bowel Sounds Extremities: Yes: Amputation (R foot amputation, dressing C/D/I. B/L LE vascular changes and associated erythema, warm to touch), Erythema Edema: LUE: 1+, RUE: 1+, LLE: 1+, RLE: 1+ Integumentary: Yes: Erythema, Venous Stasis Changes Wound/Incision: Yes: Dressing Dry and Intact Neurological: Yes: Alert, Oriented Labs: Vital Signs Temperature 98.0 F 09/16/16 03:00 Pulse Rate 81 09/16/16 03:00 Respiratory Rate 20 09/16/16 03:00 Blood Pressure 120/68 09/16/16 03:00 O2 Sat by Pulse Oximetry (%) 96 09/16/16 00:00 CBC, BMP 09/15/16 15:45 09/15/16 23:14 Troponin, BNP 09/15/16 09/15/16 09/15/16 15:45 15:45 23:15 Troponin I 0.09 H D 0.21 H D B-Natriuretic Peptide 1822.53 H Intake & Output 09/13/16 09/14/16 09/15/16 09/16/16 23:59 23:59 23:59 23:59 Intake Total 100 Balance 100 Weight 128.849 kg Home Medication List Medication Instructions Recorded Confirmed Type Insulin (Novolog 70/30) [Novolog 40 units SQ BID 06/28/16 09/15/16 History Mix 70/30 Flexpen -] Torsemide [Demadex -] 150 mg PO DAILY 09/15/16 09/15/16 History Active Medications Generic Name Dose Route Start Last Admin Trade Name Jarredq PRN Reason Stop Dose Admin Aspirin 81 mg 09/16/16 10:00 Ecotrin - PO DAILY IGGY Atorvastatin Calcium 80 mg 09/15/16 22:00 09/15/16 22:44 Lipitor - PO 80 mg HS IGG[facility] Administration Heparin Sodium (Porcine) 5,000 unit 09/15/16 19:00 09/15/16 19:17 Heparin - SQ 5,000 unit TID IGGY Administration Insulin Aspart 1 vial 09/15/16 17:45 09/15/16 22:47 Novolog Vial Sliding Scale - SQ 2 units ACHS IGGY Administration Protocol Insulin Aspart 45 units 09/15/16 21:00 09/15/16 22:45 Novolog Mix 70/30 Vial SQ 45 unit BID@07,21 IGG[facility] Administration Pantoprazole Sodium 40 mg 09/16/16 10:00 Protonix - PO DAILY [facility] Imaging - Results Chest X-ray: Report Reviewed, Image Reviewed EKG: Image Reviewed (ECg w/ IN .24 c/w 1st Degree Heart Block, inverted t-wave V3-V5), Other Problem List - Problems (1) CHF exacerbation Code(s): I50.9 - HEART FAILURE, UNSPECIFIED Qualifiers: Congestive heart failure type: unspecified congestive heart failure type Qualified Code(s): I50.9 - Heart failure, unspecified (2) Acute kidney injury Code(s): N17.9 - ACUTE KIDNEY FAILURE, UNSPECIFIED (3) Diabetes mellitus Code(s): E11.9 - TYPE 2 DIABETES MELLITUS WITHOUT COMPLICATIONS Qualifiers: Diabetes mellitus type: type 2 Diabetes mellitus complication status: with kidney complications Diabetes mellitus complication detail: with chronic kidney disease Diabetes mellitus retirement insulin use: with retirement use Chronic kidney disease stage: stage 3 (moderate) Qualified Code(s): E11.22 - Type 2 diabetes mellitus with diabetic chronic kidney disease ; N18.1 - Chronic kidney disease, stage 1; Z79.4 - assisted (current) use of insulin (4) CAD (coronary artery disease) Code(s): I25.10 - ATHSCL HEART DISEASE OF [place] CORONARY ARTERY W/O ANG PCTRS Qualifiers: Coronary Disease-Associated Artery/Lesion type: [place] artery [place] vs. transplanted heart: [place] heart Associated angina: without angina Qualified Code(s): I25.10 - Atherosclerotic heart disease of [place] coronary artery without angina pectoris (5) Hypertension Code(s): I10 - ESSENTIAL (PRIMARY) HYPERTENSION Qualifiers: Hypertension type: essential hypertension Qualified Code(s): I10 - Essential (primary) hypertension (6) Hyperlipidemia Code(s): E78.5 - HYPERLIPIDEMIA, UNSPECIFIED Qualifiers: Hyperlipidemia type: unspecified Qualified Code(s): E78.5 - Hyperlipidemia, unspecified Assessment/Plan A/P: This is a 61-year-old gentleman with a past medical history of morbid obesity, HTN, PAD, LE angioplasty, DM, s/p R foot amputation, CAD, chronic EPSTEIN, orthopnea and SOB who presents to the ED with worsening SOB found to have acute on chronic kidney disease, elevated troponin and elevated BNP likely in the setting of CHF exacerbation admitted to telemetry with 7-second pause presumably in the setting of obesity hypoventilation likely exacerbated by recent Clonopin now being admitted to ICU for further monitoring. - Cardiology following, appreciate - Continuous telemetry - STAT ECG - Formal TTE - Trend Troponin - Check ABG now, BiPap while sleeping - Avoid Benzos - Trend Cr and electrolytes, replete K < 4 and Mag < 2 - Continue Lasix for goal net out - Continue ASA - Continue Atorvastatin - Hold Metoprolol in the setting of recent pause - Low threshold for ABX for cellulitis - FS and AISS PPX: Hep sq Prontonix Total Critical Care Time 35 mins KIERSTEN Miller
[2016-09-16 04:25] LABS: ARTERIAL BLD GAS O2 SATURATION 92.3 % (90-98.9); ARTERIAL BLOOD GAS BASE EXCESS 4.8 meq/l (-2-2); ARTERIAL BLOOD GAS HCO3 29.7 meq/L (22-26); ARTERIAL BLOOD GAS PO2 75.9 mmHg (80-100); ARTERIAL BLOOD GAS pH 7.41 (7.35-7.45)
[2016-09-16 04:29] LABS: ALLENS TEST POSITIVE; ART PUNCT SITE RIGHT RADIAL; LPM/O2% 3L; PT. ON O2? YES; TYPE OF O2 NASAL
[2016-09-16 05:02] LABS: BASOPHIL 0.8 % (0-2.0); EOSINOPHIL 5.4 % (0-4.5); MCH 27.4 pg (25.7-33.7); MCHC 32.6 g/dl (32.0-35.9); MEAN CELL VOLUME 83.9 fl (80-96); MEAN PLT VOLUME 9.8 fl (7.5-11.1); NEUTROPHILS 67.4 % (42.8-82.8); PLATELET COUNT 239 K/MM3 (134-434); WHITE BLOOD COUNT 8.6 K/mm3 (4.0-10.0)
[2016-09-16 05:26] LABS: ANION GAP 9 (8-16); CO2 32 mmol/L (21-32); CREATININE 1.9 mg/dL (0.7-1.3); GLUCOSE,RANDOM 95 mg/dL (74-106); MAGNESIUM 2.7 mg/dL (1.8-2.4); PHOSPHOROUS 4.5 mg/dL (2.5-4.9)
[2016-09-16 05:31] LABS: TROPONIN I 0.2 ng/ml (0.00-0.05)
[2016-09-16 06:21] VITALS: TEMP 97.8
[2016-09-16] MEDS: INSULIN (NOVOLOG MIX 70/30) 100 UNITS/ML MDV SQ SCH (07:18)
[2016-09-16] MEDS: HEPARIN NA (PORCINE) 5,000 UNITS/ML 1ML VIAL SQ SCH (07:18)
[2016-09-16] MEDS: INSULIN SLIDING SCALE (NOVOLOG) 1 VIAL SQ SCH ×2 (07:48→11:16)
[2016-09-16 08:07] LABS: BASOPHIL 0.7 % (0-2.0); EOSINOPHIL 5.6 % (0-4.5); MCHC 32.3 g/dl (32.0-35.9); MEAN CELL VOLUME 83.6 fl (80-96); MEAN PLT VOLUME 9.2 fl (7.5-11.1); NEUTROPHILS 65.1 % (42.8-82.8); PLATELET COUNT 234 K/MM3 (134-434); RDW 15.4 % (11.9-15.9); WHITE BLOOD COUNT 7.9 K/mm3 (4.0-10.0)
[2016-09-16 08:43] LABS: MAGNESIUM 2.6 mg/dL (1.8-2.4)
[2016-09-16 08:44] LABS: TROPONIN I 0.16 ng/ml (0.00-0.05)
--- NOTE | 2016-09-16 09:22 | EKG ---
Test Reason : Blood Pressure : / mmHG Vent. Rate : 085 BPM Atrial Rate : 085 BPM P-R Int : 244 ms QRS Dur : 102 ms QT Int : 388 ms P-R-T Axes : 023 057 088 degrees QTc Int : 461 ms SINUS RHYTHM WITH 1ST DEGREE A-V BLOCK INCOMPLETE RIGHT BUNDLE BRANCH BLOCK PROLONGED QT ABNORMAL ECG Confirmed by KIM EPSTEIN MD ([id number]) on 09/16/2016 9:21:51 AM Referred By: Confirmed By:KIM EPSTEIN MD
--- NOTE | 2016-09-16 09:31 | EKG ---
Test Reason : Blood Pressure : / mmHG Vent. Rate : 088 BPM Atrial Rate : 088 BPM P-R Int : 226 ms QRS Dur : 134 ms QT Int : 420 ms P-R-T Axes : 006 043 -04 degrees QTc Int : 508 ms SINUS RHYTHM WITH 1ST DEGREE A-V BLOCK RIGHT BUNDLE BRANCH BLOCK POSSIBLE INFERIOR INFARCT (CITED ON OR BEFORE 15-SEP-2016) ANTEROLATERAL INFARCT (CITED ON OR BEFORE 15-SEP-2016) ABNORMAL ECG WHEN COMPARED WITH ECG OF 27-JUN-2016 17:58, RI INTERVAL HAS INCREASED QUESTIONABLE CHANGE IN INITIAL FORCES OF ANTEROLATERAL LEADS QT HAS LENGTHENED Confirmed by KIM EPSTEIN MD ([id number]) on 09/16/2016 9:31:35 AM Referred By: Confirmed By:KIM EPSTEIN MD
--- NOTE | 2016-09-16 09:57 | PN ---
Progress Note, Physician Chief Complaint: Mr Duarte says he is still short of breath. States that at home he has feeling of his heart stopping. Currently no cp or n/v. - Current Medication List Current Medications: Active Medications Aspirin (Ecotrin -) 81 mg PO DAILY [facility] Atorvastatin Calcium (Lipitor -) 80 mg PO HS [facility] Last Admin: 09/15/16 22:44 Dose: 80 mg Furosemide (Lasix Injection -) 80 mg IVPUSH BID@0600,1400 [facility] Heparin Sodium (Porcine) (Heparin -) 5,000 unit SQ TID [facility] Last Admin: 09/16/16 07:18 Dose: 5,000 unit Insulin Aspart (Novolog Vial Sliding Scale -) 1 vial SQ ACHS [facility] PRN Reason: Protocol Last Admin: 09/16/16 07:48 Dose: 2 units Insulin Aspart (Novolog Mix 70/30 Vial) 45 units SQ BID@07,21 [facility] Last Admin: 09/16/16 07:18 Dose: 45 unit Pantoprazole Sodium (Protonix -) 40 mg PO DAILY [facility] - Objective Vital Signs: Vital Signs Temperature 36.6 C 09/16/16 06:00 Pulse Rate 78 09/16/16 08:00 Respiratory Rate 16 09/16/16 08:00 Blood Pressure 131/73 09/16/16 08:00 O2 Sat by Pulse Oximetry (%) 98 09/16/16 09:20 Constitutional: Yes: No Distress, Calm, Obese Cardiovascular: Yes: Regular Rate and Rhythm. No: Gallop, Murmur, Rub Respiratory: Yes: Regular, Rhonchi. No: CTA Bilaterally, Rales, Tachypnea, Wheezes Gastrointestinal: Yes: Normal Bowel Sounds, Soft. No: Distention, Tenderness Extremities: Yes: Amputation Edema: No Labs: CBC, BMP 09/16/16 07:25 09/16/16 03:49 Problem List - Problems (1) Heart block AV second degree Assessment/Plan: -patient complains of episode of feeling his heart stop -overnight, episode of 2 degree heart block captured -monitor in the ICU -on pacemaker pads -cardiology following and seen -cardiology to speak with EP, may need emergent pacemaker Code(s): I44.1 - ATRIOVENTRICULAR BLOCK, SECOND DEGREE (2) CHF exacerbation Assessment/Plan: -has CHF exacerbation -suspect exacerbated by heart block -continue IV lasix Code(s): I50.9 - HEART FAILURE, UNSPECIFIED Qualifiers: Congestive heart failure type: systolic Qualified Code(s): I50.23 - Acute on chronic systolic (congestive) heart failure (3) Acute respiratory failure with hypoxemia Assessment/Plan: -improved with bipap at night -pulmonary following -continue oxygen supplementation Code(s): J96.01 - ACUTE RESPIRATORY FAILURE WITH HYPOXIA (4) Diabetes mellitus Assessment/Plan: -currently npo -continue SSI -hold scheduled 70/30 until diet restarted Code(s): E11.9 - TYPE 2 DIABETES MELLITUS WITHOUT COMPLICATIONS Qualifiers: Diabetes mellitus type: type 2 Diabetes mellitus complication status: with kidney complications Diabetes mellitus complication detail: with chronic kidney disease Diabetes mellitus care home insulin use: with 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 gauger 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 transplanted heart: [place] heart Associated angina: without angina Qualified Code(s): I25.10 - Atherosclerotic heart disease of [place] coronary artery without angina pectoris (6) CKD (chronic kidney disease) stage 3, GFR 30-59 ml/min Assessment/Plan: -stable Code(s): N18.3 - CHRONIC KIDNEY DISEASE, STAGE 3 (MODERATE) (7) Hyperlipidemia Assessment/Plan: -continue statin Code(s): E78.5 - HYPERLIPIDEMIA, UNSPECIFIED Qualifiers: Hyperlipidemia type: unspecified Qualified Code(s): E78.5 - Hyperlipidemia, unspecified (8) Hypertension Assessment/Plan: -controlled -continue lasix Code(s): I10 - ESSENTIAL (PRIMARY) HYPERTENSION Qualifiers: Hypertension type: essential hypertension Qualified Code(s): I10 - Essential (primary) hypertension Assessment/Plan 37 minutes spent in critical care time
[2016-09-16] MEDS ORDERED: ASPIRIN COATED 81 MG TABLET.EC PO SCH (10:00)
[2016-09-16] MEDS ORDERED: METOPROLOL SUCCINATE 25 MG TAB.SR.24H (FP) PO SCH (10:00)
[2016-09-16] MEDS ORDERED: FUROSEMIDE 40 MG/4 ML INJECTABLE VIAL IVPUSH SCH (10:00)
[2016-09-16] MEDS ORDERED: PANTOPRAZOLE 40 MG TABLET (FP) PO SCH (10:00)
[2016-09-16] MEDS ORDERED: POTASSIUM CHLORIDE TABS 20 MEQ TABLET.ER (FP) PO SCH (10:00)
[2016-09-16] MEDS ORDERED: INSULIN (NOVOLOG MIX 70/30) 100 UNITS/ML MDV SQ SCH (10:04)
[2016-09-16] MEDS ORDERED: FUROSEMIDE 100 MG/10 ML INJECTABLE VIAL ONE (10:13)
[2016-09-16 11:17] VITALS: BMI 41.3
--- NOTE | 2016-09-16 11:17 | CON.NEP ---
Consult Consult Specialty:: Nephrology (Leo/Edgardo) Referred by:: Dr. Lindsay Reason for Consultation:: MIREYA/CKD/Volume Overload - History of Present Illness Chief Complaint: SOB History of Present Illness: This is a 61 year old Gentleman with PMhx of PVD s/p TMA/Angioplasty, Hypertension, Obesity, CHF, IDDM, CAD, Suspected CKD who presented with SOB/EPSTEIN/ Orthopnea with a pause of tele noted with Cr of 2.4. Pt was seen by our service on his last admission in July. Pt Cr on discharge at that time was 1.7. Cr in 2015 was 1.2. Pt was discharged on Torsemide. Reports worsening respiratory status for 1 week. No chest pain, N/V/D. No Abd pain, No dysuria. No retention. Has frequent urination on Torsemide. No dysuria, hematuria, flank pain, NSAID use, Contrast exposure. - History Source History Provided By: Patient Limitations to Obtaining History: No Limitations - Past Medical History Cardio/Vascular: Yes: CAD, HTN, Hyperlipdemia Musculoskeletal: Yes: Other (H/O osteomyelitis) Endocrine: Yes: Diabetes Mellitus - Past Surgical History Past Surgical History: Yes: Amputation - Alcohol/Substance Use Hx Alcohol Use: No History of Substance Use: reports: None - Smoking History Smoking history: Former smoker Have you smoked in the past 12 months: No Aproximately how many cigarettes per day: 10 If you are a former smoker, when did you quit?: 2016 - Social History ADL: Independent History of Recent Travel: No Home Medications - Allergies Allergies/Adverse Reactions: Allergies Allergy/AdvReac Type Severity Reaction Status Date / Time No Known Drug Allergies Allergy Verified 09/15/16 14:34 - Home Medications Home Medications: Ambulatory Orders Insulin (Novolog) [Novolog Flexpen -] 0 units SQ TIDAC #0 pen 08/07/13 Aspirin Coated [Ecotrin -] 81 mg PO DAILY tablet.ec 04/30/15 Insulin (Novolog 70/30) [Novolog Mix 70/30 Flexpen -] 40 units SQ BID 06/28/16 Atorvastatin Ca [Lipitor] 80 mg PO HS #30 tablet 07/05/16 Clonazepam [Klonopin -] 0.5 mg PO HS #30 tablet MDD 1mg 07/05/16 Metoprolol Succinate [Toprol XL -] 25 mg PO DAILY #30 tab.sr 07/05/16 Pantoprazole Sodium [Protonix -] 40 mg PO DAILY #30 tab.ec 07/05/16 Torsemide [Demadex -] 150 mg PO DAILY 09/15/16 Family Disease History - Family Disease History Family Disease History: Heart Disease: Father, Mother Review of Systems - Review of Systems Constitutional: reports: No Symptoms Eyes: reports: No Symptoms HENT: reports: No Symptoms Neck: reports: No Symptoms Cardiovascular: reports: Edema, Shortness of Breath. denies: Chest Pain, Palpitations Respiratory: reports: Cough, Exercise Intolerance, Orthopnea, SOB, SOB on Exertion Genitourinary: reports: No Symptoms Breasts: reports: No Symptoms Reported Musculoskeletal: reports: No Symptoms Neurological: reports: No Symptoms Nephrology Consult - Height Height: 5 ft 8 in - Weight Weight: 272 lb 4.334 oz - BMI Body Mass Index (BMI): 41.3 - Lab Results CBC,BMP: CBC, BMP 09/16/16 07:25 09/16/16 03:49 Anion Gap: Anion Gap Anion Gap 9 (8-16) 09/16/16 03:49 - Imaging Chest X-ray: Report Reviewed - Physical Examination Vital Signs: Vital Signs Temperature 97.8 F 09/16/16 06:00 Pulse Rate 85 09/16/16 10:00 Respiratory Rate 16 09/16/16 10:00 Blood Pressure 137/94 09/16/16 10:00 O2 Sat by Pulse Oximetry (%) 98 09/16/16 09:20 Constitutional: Yes: Well Nourished, No Distress, Calm Eyes: Yes: Conjunctiva Clear HENT: Yes: Atraumatic, Normocephalic Neck: Yes: Supple Cardiovascular: Yes: Regular Rate and Rhythm, S1, S2. No: JVD, Murmur, Rub Respiratory: Yes: Regular, Diminished, On Nasal O2, SOB. No: Rales, Rhonchi Gastrointestinal: Yes: Normal Bowel Sounds, Soft Renal/: No: Anuria, Bladder Distention, CVA Tenderness - Left, CVA Tenderness - Right, [place] Present Extremities: Yes: Amputation Edema: Yes Edema: LLE: Trace, RLE: Trace Neurological: Yes: Alert, Oriented Problem List - Problems (1) CHF exacerbation Code(s): I50.9 - HEART FAILURE, UNSPECIFIED Qualifiers: Congestive heart failure type: systolic Qualified Code(s): I50.23 - Acute on chronic systolic (congestive) heart failure (2) Acute kidney injury Code(s): N17.9 - ACUTE KIDNEY FAILURE, UNSPECIFIED (3) Hypertension Code(s): I10 - ESSENTIAL (PRIMARY) HYPERTENSION Qualifiers: Hypertension type: essential hypertension Qualified Code(s): I10 - Essential (primary) hypertension (4) PVD (peripheral vascular disease) Code(s): I73.9 - PERIPHERAL VASCULAR DISEASE, UNSPECIFIED (5) Type 2 diabetes mellitus with right diabetic foot infection Code(s): E11.69 - TYPE 2 DIABETES MELLITUS WITH OTHER SPECIFIED COMPLICATION L08.9 - LOCAL INFECTION OF THE SKIN AND SUBCUTANEOUS TISSUE, UNSP Assessment/Plan 61 year old Gentleman with PMhx of PVD s/p TMA/Angioplasty, Hypertension, Obesity, CHF, IDDM, CAD, Suspected CKD who presented with SOB/EPSTEIN/Orthopnea with a pause of tele noted with Cr of 2.4. #Acute on Chronic Renal Insufficiency Etiology appears to be renal hypoperfusion in setting of acute chf exacerbation (cardio-renal syndrome) Check FeUrea, UPCR, UA Renal US done last visit showed normal kidney size and texture Continue IV lasix, titrate up to achieve negative balance and weight loss if BUN/Cr continue to improve and goal of weight loss/improvement in respiratory status is not achieved can consider Metolazone as well. Trend BUN/Cr and electrolytes daily Dose all meds for Cr Cl less then 40 avoid IV contrast and NSAIDs if needed #SOB secondary to CHF/COPD/Obesity Hyperventilation continue IV lasix, BIPAP as needed Pulmonary/ICU/Cardiology follow up #Hypertension bp is acceptable on diuretics alone continue to hold IRENA/ARB for now Thank you Will follow Shamir Reynoso DO Current Medications Aspirin (Ecotrin -) 81 mg PO DAILY [facility] Last Admin: 09/16/16 10:21 Dose: 81 mg Atorvastatin Calcium (Lipitor -) 80 mg PO HS [facility] Last Admin: 09/15/16 22:44 Dose: 80 mg Furosemide (Lasix Injection -) 80 mg IVPUSH BID@0600,1400 [facility] Last Admin: 09/16/16 10:14 Dose: 80 mg Heparin Sodium (Porcine) (Heparin -) 5,000 unit SQ TID [facility] Last Admin: 09/16/16 07:18 Dose: 5,000 unit Insulin Aspart (Novolog Vial Sliding Scale -) 1 vial SQ ACHS [facility] PRN Reason: Protocol Last Admin: 09/16/16 11:16 Dose: Not Given Insulin Aspart (Novolog Mix 70/30 Vial) 45 units SQ BID@ [facility] Pantoprazole Sodium (Protonix -) 40 mg PO DAILY [facility] Last Admin: 09/16/16 10:21 Dose: 40 mg
--- NOTE | 2016-09-16 11:44 | CON.CARD ---
Cardiology Consult (text) - Consultation Consultation Note: History of Present Illness: 61 yo with h/o HTN, HL, dchf, CAD s/p medically managed nstemi 2016 in setting of sepsis/wound infection, IDDM, followed by dr christie for DM neuropathy and wounds, PAD s/p LE stent and rt forefoot amputation, here with sob. Had been doing well as outpt on torsemide 100 bid but then over past few days noticed increased marx. No cp, palps, dizzy, loc, pnd, orthopnea, le edema. Admitted for iv lasix and overnight had approx 7 second pause on tele so now in icu. Sees dr velasquez for cardio. PMH/PSHx: per hpi, H/O osteomyelitis, toe amputation, corneal transplants social hx: ex tob fam hx: Acute myocardial infarction Father of HI in 70s. Mother of [place] at 69eg ros: per hpi; no nvd, vogel, vision changes, gib, hematuria, dysuria, cough Ambulatory Orders Home Medications Medication Instructions Recorded Insulin (Novolog) [Novolog Flexpen 0 units SQ TIDAC #0 pen 08/07/13 -] Aspirin Coated [Ecotrin -] 81 mg PO DAILY tablet.ec 04/30/15 Insulin (Novolog 70/30) [Novolog 40 units SQ BID 06/28/16 Mix 70/30 Flexpen -] Atorvastatin Ca [Lipitor] 80 mg PO HS #30 tablet 07/05/16 Clonazepam [Klonopin -] 0.5 mg PO HS #30 tablet MDD 1mg 07/05/16 Metoprolol Succinate [Toprol XL -] 25 mg PO DAILY #30 tab.sr 07/05/16 Pantoprazole Sodium [Protonix -] 40 mg PO DAILY #30 tab.ec 07/05/16 Torsemide [Demadex -] 150 mg PO DAILY 09/15/16 Vital Signs Temp 97.8 F 09/16/16 06:00 Pulse 85 09/16/16 10:00 Resp 16 09/16/16 10:00 BP 137/94 09/16/16 10:00 Pulse Ox 98 09/16/16 09:20 Intake & Output 09/15/16 09/15/16 09/16/16 11:59 23:59 11:59 Intake Total 300 Output Total 500 Balance -200 Weight 284 lb 1 oz 272 lb 4.334 oz Intake: Oral 300 Output: Urine 500 Void 500 Other: Voiding Method Toilet Toilet # Unmeasured Voids Void 2 Bowel Movement No Height 5 ft 8 in 5 ft 8 in Body Mass Index (BMI) 43.2 41.3 Weight Measurement Method Standing Scale Built in [facility] Weight Measurement Method Est/Stated by Patient NAD, calm jvd tds, neck supple bibasilar rales, nl effort RRR nl s1, s2 no mrg + bs soft nt nd obese ext with trace edema bl venous stasis changes s/p LE amputation diminished LE pulses aaox3 no jaundice, diaphoresis Laboratory Last Values WBC 7.9 K/mm3 (4.0-10.0) 09/16/16 07:25 RBC 4.59 M/mm3 (4.00-5.60) 09/16/16 07:25 Hgb 12.4 GM/dL (11.7-16.9) 09/16/16 07:25 Hct 38.4 % (35.4-49) 09/16/16 07:25 MCV 83.6 fl (80-96) 09/16/16 07:25 MCH 27.0 pg (25.7-33.7) 09/16/16 07:25 MCHC 32.3 g/dl (32.0-35.9) 09/16/16 07:25 RDW 15.4 % (11.9-15.9) 09/16/16 07:25 Plt Count 234 K/MM3 (134-434) 09/16/16 07:25 MPV 9.2 fl (7.5-11.1) 09/16/16 07:25 Neutrophils % 65.1 % (42.8-82.8) 09/16/16 07:25 Lymphocytes % 20.6 % (8-40) 09/16/16 07:25 Monocytes % 8.0 % (3.8-10.2) 09/16/16 07:25 Eosinophils % 5.6 % (0-4.5) H 09/16/16 07:25 Basophils % 0.7 % (0-2.0) 09/16/16 07:25 Puncture Site Right radial 09/16/16 04:25 ABG pH 7.41 (7.35-7.45) 09/16/16 04:25 ABG pCO2 at Pt Temp 47.5 mmHg (35-45) H 09/16/16 04:25 ABG pO2 at Pt Temp 75.9 mmHg (80-100) L D 09/16/16 04:25 ABG HCO3 29.7 meq/L (22-26) H 09/16/16 04:25 ABG O2 Sat (Measured) 92.3 % (90-98.9) 09/16/16 04:25 ABG O2 Content 15.7 % vol (15-22) 09/16/16 04:25 ABG Base Excess 4.8 meq/l (-2-2) H 09/16/16 04:25 Surendra Test Positive 09/16/16 04:25 O2 Delivery Device Nasal 09/16/16 04:25 Oxygen Flow Rate 3l 09/16/16 04:25 Sodium 140 mmol/L (136-145) 09/16/16 03:49 Potassium 3.6 mmol/L (3.5-5.1) 09/16/16 03:49 Chloride 99 mmol/L (98-107) 09/16/16 03:49 Carbon Dioxide 32 mmol/L (21-32) 09/16/16 03:49 Anion Gap 9 (8-16) 09/16/16 03:49 BUN 63 mg/dL (7-18) H 09/16/16 03:49 Creatinine 1.9 mg/dL (0.7-1.3) H 09/16/16 03:49 Creat Clearance w eGFR 27.85 (>60) 09/15/16 15:45 POC Glucometer 84.13268 UNITS (()) 09/16/16 11:15 Random Glucose 95 mg/dL (74-106) D 09/16/16 03:49 Hemoglobin A1c % 8.5 % (4.8-6.0) H 09/16/16 07:25 Calcium 9.0 mg/dL (8.5-10.1) 09/16/16 03:49 Phosphorus 4.5 mg/dL (2.5-4.9) 09/16/16 03:49 Magnesium 2.6 mg/dL (1.8-2.4) H 09/16/16 07:25 Total Bilirubin 0.5 mg/dL (0.2-1.0) 09/15/16 15:45 AST 21 U/L (15-37) 09/15/16 15:45 ALT 28 U/L (12-78) D 09/15/16 15:45 Alkaline Phosphatase 80 U/L (45-117) D 09/15/16 15:45 Creatine Kinase 353 IU/L (39-308) H 09/16/16 07:25 Creatine Kinase Index 1.2 % (0.0-5.0) 09/16/16 07:25 CK-MB (CK-2) 4.369 ng/mL (0.5-3.6) H 09/16/16 07:25 Troponin I 0.16 ng/ml (0.00-0.05) H 09/16/16 07:25 B-Natriuretic Peptide 1941.80 pg/ml (5-125) H 09/16/16 03:49 Total Protein 7.7 g/dl (6.4-8.2) 09/15/16 15:45 Albumin 3.6 g/dl (3.4-5.0) 09/15/16 15:45 Triglycerides 115 mg/dL (35-160) 09/16/16 07:25 Cholesterol 98 mg/dL (50-200) 09/16/16 07:25 Total LDL Cholesterol 51 mg/dL (5-100) D 09/16/16 07:25 HDL Cholesterol 35 mg/dL (40-60) L 09/16/16 07:25 Urine Color Straw 09/15/16 16:30 Urine Appearance Clear 09/15/16 16:30 Urine pH 6.0 (5.0-8.0) 09/15/16 16:30 Ur Specific [place] 1.010 (1.005-1.025) 09/15/16 16:30 Urine Protein Negative (NEGATIVE) 09/15/16 16:30 Urine Glucose (UA) Negative (NEGATIVE) 09/15/16 16:30 Urine Ketones Negative (NEGATIVE) 09/15/16 16:30 Urine Blood 1+ (NEGATIVE) H 09/15/16 16:30 Urine Nitrite Negative (NEGATIVE) 09/15/16 16:30 Urine Bilirubin Negative (NEGATIVE) 09/15/16 16:30 Urine Urobilinogen Negative mg/dL (0.2-1.0) 09/15/16 16:30 Ur Leukocyte Esterase Negative (NEGATIVE) 09/15/16 16:30 Urine RBC 1 /hpf (0-3) 09/15/16 16:30 Urine WBC None /hpf (3-5) 09/15/16 16:30 Ur Epithelial Cells Rare /hpf (FEW) 09/15/16 16:30 Urine Mucus Rare 09/15/16 16:30 U Random Total Protein 35 mg/dl (5-11.9) H 09/16/16 10:30 Ur Random Urea Nitrogn 620 mg/dL 09/16/16 10:30 Urine Creatinine 75.0 mg/dL (20-370) 09/16/16 10:30 ecg 09/16/16: sr, 1st avb, rbbb(old), twi v1-v4 tele: sr currently, approx 7 second pause overnight cxr: mild chf 06/2016 echo here: tds. Nl lv size/fn. RV not well seen. nl valves. 04/2015 echo SJR: tds. nl lv/rv. 1+ mr 04/2015 dipyridamole stress SJR: stach with RBBB, no further ekg changes. mod fixed apical defect with partial reversibility --> mod apical infarct with small area of periinfarct ischemia. inferobasal defect thought to be 2/2 attenuation. mild global HK, apical AK. EF 46% est cct 36 mins a/p: 61 yo with h/o HTN, HL, dchf, CAD s/p medically managed nstemi 2016 in setting of sepsis/wound infection, IDDM, followed by dr christie for DM neuropathy and wounds, PAD s/p LE stent and rt forefoot amputation, here with sob. sob, acute diastolic chf: -no signs acs -pt with mild vol overload -will start lasix 80 iv bid, monitor daily cr/lytes bradycardia, pause -overnight with approx 7 second pause -possibly related to sleep apnea/vagal response but was a very long pause -no further pauses/dianelys since then, pt hemodynamically stable -d/w EP and they have accepted him for transfer to [facility] for possible ppm -avoid bb, cont tele CAD - prior history of medically managed nstemi 2015 (peak troponin 4) in setting of sepsis/wound infection. at that time cath was deferred due to active underlying infection -current intermediate trop elevation with flat trend, not c/w acs -con't asa, statin. no bb 2/2 long pause -prior mibi with mild ischemia, will likely need lhc/rhc given recurrent chf and high likelihood of cad -d/w interventionalist, will evaluate pt when arrives at [facility] with EP for timing of cath PAD s/p LE stent and rt forefoot amputation - con't asa, statin HTN -stable, monitor for now off meds HL - cont statin ckd/sulema: -cr stable, bl low 2's -monitor with diuresis
--- NOTE | 2016-09-16 12:04 | PN ---
Teaching Attending Note Name of Resident: Jose Raul Foster ATTENDING PHYSICIAN STATEMENT I saw and evaluated the patient. I reviewed the resident's note and discussed the case with the resident. I agree with the resident's findings and plan as documented. SUBJECTIVE: Patient seen and examined in the ICU. Awake and alert. Used NIPPV overnight and reported a subjective improvement in sleep. Denies CP. Some dry cough with difficulty in expectorating. Intake & Output 09/13/16 09/14/16 09/15/16 09/16/16 23:59 23:59 23:59 23:59 Intake Total 300 Output Total 500 Balance -200 Weight 284 lb 1 oz 272 lb 4.334 oz Last Vital Signs Temp Pulse Resp BP Pulse Ox 97.8 F 85 16 137/94 98 09/16/16 06:00 09/16/16 10:00 09/16/16 10:00 09/16/16 10:00 09/16/16 09:20 Active Medications Aspirin (Ecotrin -) 81 mg PO DAILY [facility] Last Admin: 09/16/16 10:21 Dose: 81 mg Atorvastatin Calcium (Lipitor -) 80 mg PO HS [facility] Last Admin: 09/15/16 22:44 Dose: 80 mg Furosemide (Lasix Injection -) 80 mg IVPUSH BID@0600,1400 [facility] Last Admin: 09/16/16 10:14 Dose: 80 mg Heparin Sodium (Porcine) (Heparin -) 5,000 unit SQ TID [facility] Last Admin: 09/16/16 07:18 Dose: 5,000 unit Insulin Aspart (Novolog Vial Sliding Scale -) 1 vial SQ ACHS [facility] PRN Reason: Protocol Last Admin: 09/16/16 11:16 Dose: Not Given Insulin Aspart (Novolog Mix 70/30 Vial) 45 units SQ BID@ [facility] Pantoprazole Sodium (Protonix -) 40 mg PO DAILY [facility] Last Admin: 09/16/16 10:21 Dose: 40 mg Constitutional: Yes: Awake and alert, NAD Eyes: Yes: WNL HENT: Yes: WNL Neck: Yes: Supple, Trachea Midline Cardiovascular: Yes: Pulse Irregular, S1, S2 Respiratory: Yes: Diminished / Rales at the bases Gastrointestinal: Yes: Abdomen, Obese, Distention, (+) Bowel Sounds Extremities: Yes: Amputation (R foot amputation, dressing C/D/I. B/L LE vascular changes and associated erythema, warm to touch), Erythema Edema: LUE: 1+, RUE: 1+, LLE: 1+, RLE: 1+ Integumentary: Yes: Erythema, Venous Stasis Changes Wound/Incision: Yes: Dressing Dry and Intact Neurological: Yes: Alert, Oriented Labs: Laboratory Results - last 24 hr 09/15/16 09/15/16 09/15/16 15:45 15:45 15:45 WBC 9.8 RBC 4.58 Hgb 12.7 D Hct 38.1 D MCV 83.2 MCH 27.6 MCHC 33.2 RDW 14.9 Plt Count 241 MPV 9.6 Neutrophils % 75.0 Lymphocytes % 13.9 D Monocytes % 5.9 Eosinophils % 4.2 Basophils % 1.0 Puncture Site ABG pH ABG pCO2 at Pt Temp ABG pO2 at Pt Temp ABG HCO3 ABG O2 Sat (Measured) ABG O2 Content ABG Base Excess Surendra Test O2 Delivery Device Oxygen Flow Rate Sodium 137 Potassium 3.6 D Chloride 95 L Carbon Dioxide 30 Anion Gap 12 BUN 56 H Creatinine 2.4 H D Creat Clearance w eGFR 27.85 POC Glucometer Random Glucose 223 H D Hemoglobin A1c % Calcium 8.7 Phosphorus Magnesium Total Bilirubin 0.5 AST 21 ALT 28 D Alkaline Phosphatase 80 D Creatine Kinase 503 H Creatine Kinase Index 1.0 CK-MB (CK-2) 5.156 H Troponin I 0.09 H D B-Natriuretic Peptide 1822.53 H Total Protein 7.7 Albumin 3.6 Triglycerides Cholesterol Total LDL Cholesterol HDL Cholesterol Urine Color Urine Appearance Urine pH Ur Specific [place] Urine Protein Urine Glucose (UA) Urine Ketones Urine Blood Urine Nitrite Urine Bilirubin Urine Urobilinogen Ur Leukocyte Esterase Urine RBC Urine WBC Ur Epithelial Cells Urine Mucus U Random Total Protein Ur Random Urea Nitrogn Urine Creatinine 09/15/16 09/15/16 09/15/16 16:30 21:25 23:14 WBC RBC Hgb Hct MCV MCH MCHC RDW Plt Count MPV Neutrophils % Lymphocytes % Monocytes % Eosinophils % Basophils % Puncture Site ABG pH ABG pCO2 at Pt Temp ABG pO2 at Pt Temp ABG HCO3 ABG O2 Sat (Measured) ABG O2 Content ABG Base Excess Surendra Test O2 Delivery Device Oxygen Flow Rate Sodium 139 Potassium 3.8 Chloride 96 L Carbon Dioxide 29 Anion Gap 14 BUN 65 H Creatinine 2.2 H Creat Clearance w eGFR POC Glucometer 180 Random Glucose 214 H Hemoglobin A1c % Calcium 8.7 Phosphorus Magnesium 2.6 H Total Bilirubin AST ALT Alkaline Phosphatase Creatine Kinase Creatine Kinase Index CK-MB (CK-2) Troponin I B-Natriuretic Peptide Total Protein Albumin Triglycerides Cholesterol Total LDL Cholesterol HDL Cholesterol Urine Color Straw Urine Appearance Clear Urine pH 6.0 Ur Specific [place] 1.010 Urine Protein Negative Urine Glucose (UA) Negative Urine Ketones Negative Urine Blood 1+ H Urine Nitrite Negative Urine Bilirubin Negative Urine Urobilinogen Negative Ur Leukocyte Esterase Negative Urine RBC 1 Urine WBC None Ur Epithelial Cells Rare Urine Mucus Rare U Random Total Protein Ur Random Urea Nitrogn Urine Creatinine 09/15/16 09/15/16 09/16/16 23:15 23:55 03:47 WBC 8.6 RBC 4.53 Hgb 12.4 Hct 38.0 MCV 83.9 MCH 27.4 MCHC 32.6 RDW 15.0 Plt Count 239 MPV 9.8 Neutrophils % 67.4 Lymphocytes % 17.9 D Monocytes % 8.5 Eosinophils % 5.4 H Basophils % 0.8 Puncture Site ABG pH ABG pCO2 at Pt Temp ABG pO2 at Pt Temp ABG HCO3 ABG O2 Sat (Measured) ABG O2 Content ABG Base Excess Surendra Test O2 Delivery Device Oxygen Flow Rate Sodium Potassium Chloride Carbon Dioxide Anion Gap BUN Creatinine Creat Clearance w eGFR POC Glucometer Random Glucose Hemoglobin A1c % Calcium Phosphorus Magnesium Total Bilirubin AST ALT Alkaline Phosphatase Creatine Kinase 466 H Creatine Kinase Index 1.0 CK-MB (CK-2) 4.771 H Troponin I 0.21 H D B-Natriuretic Peptide Total Protein Albumin Triglycerides Cholesterol Total LDL Cholesterol HDL Cholesterol Urine Color Urine Appearance Urine pH Ur Specific [place] Urine Protein Urine Glucose (UA) Urine Ketones Urine Blood Urine Nitrite Urine Bilirubin Urine Urobilinogen Ur Leukocyte Esterase Urine RBC Urine WBC Ur Epithelial Cells Urine Mucus U Random Total Protein Ur Random Urea Nitrogn Urine Creatinine 09/16/16 09/16/16 09/16/16 03:49 03:49 03:49 WBC RBC Hgb Hct MCV MCH MCHC RDW Plt Count MPV Neutrophils % Lymphocytes % Monocytes % Eosinophils % Basophils % Puncture Site ABG pH ABG pCO2 at Pt Temp ABG pO2 at Pt Temp ABG HCO3 ABG O2 Sat (Measured) ABG O2 Content ABG Base Excess Surendra Test O2 Delivery Device Oxygen Flow Rate Sodium 140 Potassium 3.6 Chloride 99 Carbon Dioxide 32 Anion Gap 9 BUN 63 H Creatinine 1.9 H Creat Clearance w eGFR POC Glucometer Random Glucose 95 D Hemoglobin A1c % Calcium 9.0 Phosphorus 4.5 Magnesium 2.7 H Total Bilirubin AST ALT Alkaline Phosphatase Creatine Kinase 430 H Creatine Kinase Index 1.1 CK-MB (CK-2) 4.883 H Troponin I 0.20 H B-Natriuretic Peptide 1941.80 H Total Protein Albumin Triglycerides 122 Cholesterol 107 Total LDL Cholesterol 70 HDL Cholesterol 35 Urine Color Urine Appearance Urine pH Ur Specific [place] Urine Protein Urine Glucose (UA) Urine Ketones Urine Blood Urine Nitrite Urine Bilirubin Urine Urobilinogen Ur Leukocyte Esterase Urine RBC Urine WBC Ur Epithelial Cells Urine Mucus U Random Total Protein Ur Random Urea Nitrogn Urine Creatinine 09/16/16 09/16/16 09/16/16 04:25 06:38 07:25 WBC 7.9 RBC 4.59 Hgb 12.4 Hct 38.4 MCV 83.6 MCH 27.0 MCHC 32.3 RDW 15.4 Plt Count 234 MPV 9.2 Neutrophils % 65.1 Lymphocytes % 20.6 Monocytes % 8.0 Eosinophils % 5.6 H Basophils % 0.7 Puncture Site Right radial ABG pH 7.41 ABG pCO2 at Pt Temp 47.5 H ABG pO2 at Pt Temp 75.9 L D ABG HCO3 29.7 H ABG O2 Sat (Measured) 92.3 ABG O2 Content 15.7 ABG Base Excess 4.8 H Surendra Test Positive O2 Delivery Device Nasal Oxygen Flow Rate 3l Sodium Potassium Chloride Carbon Dioxide Anion Gap BUN Creatinine Creat Clearance w eGFR POC Glucometer 167.97891 Random Glucose Hemoglobin A1c % Calcium Phosphorus Magnesium Total Bilirubin AST ALT Alkaline Phosphatase Creatine Kinase Creatine Kinase Index CK-MB (CK-2) Troponin I B-Natriuretic Peptide Total Protein Albumin Triglycerides Cholesterol Total LDL Cholesterol HDL Cholesterol Urine Color Urine Appearance Urine pH Ur Specific [place] Urine Protein Urine Glucose (UA) Urine Ketones Urine Blood Urine Nitrite Urine Bilirubin Urine Urobilinogen Ur Leukocyte Esterase Urine RBC Urine WBC Ur Epithelial Cells Urine Mucus U Random Total Protein Ur Random Urea Nitrogn Urine Creatinine 09/16/16 09/16/16 09/16/16 07:25 07:25 07:25 WBC RBC Hgb Hct MCV MCH MCHC RDW Plt Count MPV Neutrophils % Lymphocytes % Monocytes % Eosinophils % Basophils % Puncture Site ABG pH ABG pCO2 at Pt Temp ABG pO2 at Pt Temp ABG HCO3 ABG O2 Sat (Measured) ABG O2 Content ABG Base Excess Surendra Test O2 Delivery Device Oxygen Flow Rate Sodium Potassium Chloride Carbon Dioxide Anion Gap BUN Creatinine Creat Clearance w eGFR POC Glucometer Random Glucose Hemoglobin A1c % 8.5 H Calcium Phosphorus Magnesium 2.6 H Total Bilirubin AST ALT Alkaline Phosphatase Creatine Kinase 353 H Creatine Kinase Index 1.2 CK-MB (CK-2) 4.369 H Troponin I 0.16 H B-Natriuretic Peptide Total Protein Albumin Triglycerides 115 Cholesterol 98 Total LDL Cholesterol 51 D HDL Cholesterol 35 L Urine Color Urine Appearance Urine pH Ur Specific [place] Urine Protein Urine Glucose (UA) Urine Ketones Urine Blood Urine Nitrite Urine Bilirubin Urine Urobilinogen Ur Leukocyte Esterase Urine RBC Urine WBC Ur Epithelial Cells Urine Mucus U Random Total Protein Ur Random Urea Nitrogn Urine Creatinine 09/16/16 09/16/16 09/16/16 10:30 10:30 10:30 WBC RBC Hgb Hct MCV MCH MCHC RDW Plt Count MPV Neutrophils % Lymphocytes % Monocytes % Eosinophils % Basophils % Puncture Site ABG pH ABG pCO2 at Pt Temp ABG pO2 at Pt Temp ABG HCO3 ABG O2 Sat (Measured) ABG O2 Content ABG Base Excess Surendra Test O2 Delivery Device Oxygen Flow Rate Sodium Potassium Chloride Carbon Dioxide Anion Gap BUN Creatinine Creat Clearance w eGFR POC Glucometer Random Glucose Hemoglobin A1c % Calcium Phosphorus Magnesium Total Bilirubin AST ALT Alkaline Phosphatase Creatine Kinase Creatine Kinase Index CK-MB (CK-2) Troponin I B-Natriuretic Peptide Total Protein Albumin Triglycerides Cholesterol Total LDL Cholesterol HDL Cholesterol Urine Color Urine Appearance Urine pH Ur Specific [place] Urine Protein Urine Glucose (UA) Urine Ketones Urine Blood Urine Nitrite Urine Bilirubin Urine Urobilinogen Ur Leukocyte Esterase Urine RBC Urine WBC Ur Epithelial Cells Urine Mucus U Random Total Protein 35 H Ur Random Urea Nitrogn 620 Urine Creatinine 75.0 09/16/16 11:15 WBC RBC Hgb Hct MCV MCH MCHC RDW Plt Count MPV Neutrophils % Lymphocytes % Monocytes % Eosinophils % Basophils % Puncture Site ABG pH ABG pCO2 at Pt Temp ABG pO2 at Pt Temp ABG HCO3 ABG O2 Sat (Measured) ABG O2 Content ABG Base Excess Surendra Test O2 Delivery Device Oxygen Flow Rate Sodium Potassium Chloride Carbon Dioxide Anion Gap BUN Creatinine Creat Clearance w eGFR POC Glucometer 84.11684 Random Glucose Hemoglobin A1c % Calcium Phosphorus Magnesium Total Bilirubin AST ALT Alkaline Phosphatase Creatine Kinase Creatine Kinase Index CK-MB (CK-2) Troponin I B-Natriuretic Peptide Total Protein Albumin Triglycerides Cholesterol Total LDL Cholesterol HDL Cholesterol Urine Color Urine Appearance Urine pH Ur Specific [place] Urine Protein Urine Glucose (UA) Urine Ketones Urine Blood Urine Nitrite Urine Bilirubin Urine Urobilinogen Ur Leukocyte Esterase Urine RBC Urine WBC Ur Epithelial Cells Urine Mucus U Random Total Protein Ur Random Urea Nitrogn Urine Creatinine Problem List - Problems (1) CHF exacerbation Code(s): I50.9 - HEART FAILURE, UNSPECIFIED Qualifiers: Congestive heart failure type: unspecified congestive heart failure type Qualified Code(s): I50.9 - Heart failure, unspecified (2) Acute kidney injury Code(s): N17.9 - ACUTE KIDNEY FAILURE, UNSPECIFIED (3) Diabetes mellitus Code(s): E11.9 - TYPE 2 DIABETES MELLITUS WITHOUT COMPLICATIONS Qualifiers: Diabetes mellitus type: type 2 Diabetes mellitus complication status: with kidney complications Diabetes mellitus complication detail: with chronic kidney disease Diabetes mellitus joint terminal attack controller insulin use: with joint terminal attack controller use Chronic kidney disease stage: stage 3 (moderate) Qualified Code(s): E11.22 - Type 2 diabetes mellitus with diabetic chronic kidney disease ; N18.1 - Chronic kidney disease, stage 1; Z79.4 - MCFP (current) use of insulin (4) CAD (coronary artery disease) Code(s): I25.10 - ATHSCL HEART DISEASE OF [place] CORONARY ARTERY W/O ANG PCTRS Qualifiers: Coronary Disease-Associated Artery/Lesion type: [place] artery [place] vs. transplanted heart: [place] heart Associated angina: without angina Qualified Code(s): I25.10 - Atherosclerotic heart disease of [place] coronary artery without angina pectoris (5) Hypertension Code(s): I10 - ESSENTIAL (PRIMARY) HYPERTENSION Qualifiers: Hypertension type: essential hypertension Qualified Code(s): I10 - Essential (primary) hypertension (6) Hyperlipidemia Code(s): E78.5 - HYPERLIPIDEMIA, UNSPECIFIED Qualifiers: Hyperlipidemia type: unspecified Qualified Code(s): E78.5 - Hyperlipidemia, unspecified Assessment/Plan R/O Sinus pause Cardiac issues likely exacerbated by OSAS (no formal testing but most likely OSAS +/- OHS) ASA Cardiology consult noted Lasix Atorvastatin Hold Metoprolol Will need for Sleep testing after discharge For possible transfer to [facility] for advanced cardiac care Dr Carcamo CCTime [phone]" The care of this patient involved high complexity decision making to prevent further life threatening deterioration of the patient's condition and/or to evaluate & treat vital organ system(s) failure or risk of failure.
--- NOTE | 2016-09-16 14:44 | PN ---
Physical Exam: SUBJECTIVE: Patient seen and examined OBJECTIVE: Vital Signs Period Temp Pulse Resp BP Sys/Peter Pulse Ox Last 24 Hr 97.8 F-98.7 F 75-95 16-20 105-140/58-97 92-100 GENERAL: The patient is awake, alert, and fully oriented, in no acute distress. HEAD: Normal with no signs of trauma. EYES: PERRL, extraocular movements intact, sclera anicteric, conjunctiva clear. No ptosis. ENT: Ears normal, nares patent, oropharynx clear without exudates, moist mucous membranes. NECK: Trachea midline, full range of motion, supple. LUNGS: Breath sounds equal, clear to auscultation bilaterally, no wheezes, no crackles, no accessory muscle use. HEART: Regular rate and rhythm, S1, S2 without murmur, rub or gallop. ABDOMEN: Soft, nontender, nondistended, normoactive bowel sounds, no guarding, no rebound, no hepatosplenomegaly, no masses. EXTREMITIES: 2+ pulses, warm, well-perfused, no edema. NEUROLOGICAL: Cranial nerves II through XII grossly intact. Normal speech, gait not observed. PSYCH: Normal mood, normal affect. SKIN: Warm, dry, normal turgor, no rashes or lesions noted Laboratory Results - last 24 hr 09/15/16 09/15/16 09/15/16 21:25 23:14 23:15 WBC RBC Hgb Hct MCV MCH MCHC RDW Plt Count MPV Neutrophils % Lymphocytes % Monocytes % Eosinophils % Basophils % Puncture Site ABG pH ABG pCO2 at Pt Temp ABG pO2 at Pt Temp ABG HCO3 ABG O2 Sat (Measured) ABG O2 Content ABG Base Excess Surendra Test O2 Delivery Device Oxygen Flow Rate Sodium 139 Potassium 3.8 Chloride 96 L Carbon Dioxide 29 Anion Gap 14 BUN 65 H Creatinine 2.2 H POC Glucometer 180 Random Glucose 214 H Hemoglobin A1c % Calcium 8.7 Phosphorus Magnesium 2.6 H Creatine Kinase Creatine Kinase Index CK-MB (CK-2) Troponin I 0.21 H D B-Natriuretic Peptide Triglycerides Cholesterol Total LDL Cholesterol HDL Cholesterol U Random Total Protein Ur Random Urea Nitrogn Urine Creatinine 09/15/16 09/16/16 09/16/16 23:55 03:47 03:48 WBC 8.6 RBC 4.53 Hgb 12.4 Hct 38.0 MCV 83.9 MCH 27.4 MCHC 32.6 RDW 15.0 Plt Count 239 MPV 9.8 Neutrophils % 67.4 Lymphocytes % 17.9 D Monocytes % 8.5 Eosinophils % 5.4 H Basophils % 0.8 Puncture Site ABG pH ABG pCO2 at Pt Temp ABG pO2 at Pt Temp ABG HCO3 ABG O2 Sat (Measured) ABG O2 Content ABG Base Excess Surendra Test O2 Delivery Device Oxygen Flow Rate Sodium Potassium Chloride Carbon Dioxide Anion Gap BUN Creatinine POC Glucometer Random Glucose Hemoglobin A1c % 8.4 H Calcium Phosphorus Magnesium Creatine Kinase 466 H Creatine Kinase Index 1.0 CK-MB (CK-2) 4.771 H Troponin I B-Natriuretic Peptide Triglycerides Cholesterol Total LDL Cholesterol HDL Cholesterol U Random Total Protein Ur Random Urea Nitrogn Urine Creatinine 09/16/16 09/16/16 09/16/16 03:49 03:49 03:49 WBC RBC Hgb Hct MCV MCH MCHC RDW Plt Count MPV Neutrophils % Lymphocytes % Monocytes % Eosinophils % Basophils % Puncture Site ABG pH ABG pCO2 at Pt Temp ABG pO2 at Pt Temp ABG HCO3 ABG O2 Sat (Measured) ABG O2 Content ABG Base Excess Surendra Test O2 Delivery Device Oxygen Flow Rate Sodium 140 Potassium 3.6 Chloride 99 Carbon Dioxide 32 Anion Gap 9 BUN 63 H Creatinine 1.9 H POC Glucometer Random Glucose 95 D Hemoglobin A1c % Calcium 9.0 Phosphorus 4.5 Magnesium 2.7 H Creatine Kinase 430 H Creatine Kinase Index 1.1 CK-MB (CK-2) 4.883 H Troponin I 0.20 H B-Natriuretic Peptide 1941.80 H Triglycerides 122 Cholesterol 107 Total LDL Cholesterol 70 HDL Cholesterol 35 U Random Total Protein Ur Random Urea Nitrogn Urine Creatinine 09/16/16 09/16/16 09/16/16 04:25 06:38 07:25 WBC 7.9 RBC 4.59 Hgb 12.4 Hct 38.4 MCV 83.6 MCH 27.0 MCHC 32.3 RDW 15.4 Plt Count 234 MPV 9.2 Neutrophils % 65.1 Lymphocytes % 20.6 Monocytes % 8.0 Eosinophils % 5.6 H Basophils % 0.7 Puncture Site Right radial ABG pH 7.41 ABG pCO2 at Pt Temp 47.5 H ABG pO2 at Pt Temp 75.9 L D ABG HCO3 29.7 H ABG O2 Sat (Measured) 92.3 ABG O2 Content 15.7 ABG Base Excess 4.8 H Surendra Test Positive O2 Delivery Device Nasal Oxygen Flow Rate 3l Sodium Potassium Chloride Carbon Dioxide Anion Gap BUN Creatinine POC Glucometer 167.71146 Random Glucose Hemoglobin A1c % Calcium Phosphorus Magnesium Creatine Kinase Creatine Kinase Index CK-MB (CK-2) Troponin I B-Natriuretic Peptide Triglycerides Cholesterol Total LDL Cholesterol HDL Cholesterol U Random Total Protein Ur Random Urea Nitrogn Urine Creatinine 09/16/16 09/16/16 09/16/16 07:25 07:25 07:25 WBC RBC Hgb Hct MCV MCH MCHC RDW Plt Count MPV Neutrophils % Lymphocytes % Monocytes % Eosinophils % Basophils % Puncture Site ABG pH ABG pCO2 at Pt Temp ABG pO2 at Pt Temp ABG HCO3 ABG O2 Sat (Measured) ABG O2 Content ABG Base Excess Surendra Test O2 Delivery Device Oxygen Flow Rate Sodium Potassium Chloride Carbon Dioxide Anion Gap BUN Creatinine POC Glucometer Random Glucose Hemoglobin A1c % 8.5 H D Calcium Phosphorus Magnesium 2.6 H Creatine Kinase 353 H Creatine Kinase Index 1.2 CK-MB (CK-2) 4.369 H Troponin I 0.16 H B-Natriuretic Peptide Triglycerides 115 Cholesterol 98 Total LDL Cholesterol 51 D HDL Cholesterol 35 L U Random Total Protein Ur Random Urea Nitrogn Urine Creatinine 09/16/16 09/16/16 09/16/16 10:30 10:30 10:30 WBC RBC Hgb Hct MCV MCH MCHC RDW Plt Count MPV Neutrophils % Lymphocytes % Monocytes % Eosinophils % Basophils % Puncture Site ABG pH ABG pCO2 at Pt Temp ABG pO2 at Pt Temp ABG HCO3 ABG O2 Sat (Measured) ABG O2 Content ABG Base Excess Surendra Test O2 Delivery Device Oxygen Flow Rate Sodium Potassium Chloride Carbon Dioxide Anion Gap BUN Creatinine POC Glucometer Random Glucose Hemoglobin A1c % Calcium Phosphorus Magnesium Creatine Kinase Creatine Kinase Index CK-MB (CK-2) Troponin I B-Natriuretic Peptide Triglycerides Cholesterol Total LDL Cholesterol HDL Cholesterol U Random Total Protein 35 H Ur Random Urea Nitrogn 620 Urine Creatinine 75.0 09/16/16 11:15 WBC RBC Hgb Hct MCV MCH MCHC RDW Plt Count MPV Neutrophils % Lymphocytes % Monocytes % Eosinophils % Basophils % Puncture Site ABG pH ABG pCO2 at Pt Temp ABG pO2 at Pt Temp ABG HCO3 ABG O2 Sat (Measured) ABG O2 Content ABG Base Excess Surendra Test O2 Delivery Device Oxygen Flow Rate Sodium Potassium Chloride Carbon Dioxide Anion Gap BUN Creatinine POC Glucometer 84.71788 Random Glucose Hemoglobin A1c % Calcium Phosphorus Magnesium Creatine Kinase Creatine Kinase Index CK-MB (CK-2) Troponin I B-Natriuretic Peptide Triglycerides Cholesterol Total LDL Cholesterol HDL Cholesterol U Random Total Protein Ur Random Urea Nitrogn Urine Creatinine Active Medications Generic Name Dose Route Start Last Admin Trade Name Isabella PRN Reason Stop Dose Admin Aspirin 81 mg 09/16/16 10:00 09/16/16 10:21 Ecotrin - PO 81 mg DAILY IGGY Administration Atorvastatin Calcium 80 mg 09/15/16 22:00 09/15/16 22:44 Lipitor - PO 80 mg HS IGGY Administration Furosemide 80 mg 09/16/16 10:00 09/16/16 10:14 Lasix Injection - IVPUSH 80 mg BID@0600,1400 [facility] Administration Heparin Sodium (Porcine) 5,000 unit 09/15/16 19:00 09/16/16 07:18 Heparin - SQ 5,000 unit TID [facility] Administration Insulin Aspart 1 vial 09/15/16 17:45 09/16/16 11:16 Novolog Vial Sliding Scale - SQ Not Given [facility] Protocol Insulin Aspart 45 units 09/16/16 10:04 Novolog Mix 70/30 Vial SQ BID@ [facility] Pantoprazole Sodium 40 mg 09/16/16 10:00 09/16/16 10:21 Protonix - PO 40 mg DAILY IGGY Administration ASSESSMENT/PLAN: 61 yo m w/ PMH CAD, CHF, morbid obesity, PAD, DM s/p right foot amputation transferred to from [facility] after an arrythmia causing a 7 second pause in cardiac activity Neuro: -a&O x3 Cardio: -PMH of multiple cardiac issues -lipitor 80 po -ASA 81 PO -will transfer to EP service at [facility] as per cardiology FEN: -no fluids indicated at this time -NPO as per cardio Prophylaxsis: -Hep SQ -protonix 40 PO daily Dispo: -transfer to [facility] today Problem List - Problems (1) CHF exacerbation Code(s): I50.9 - HEART FAILURE, UNSPECIFIED Qualifiers: Congestive heart failure type: systolic Qualified Code(s): I50.23 - Acute on chronic systolic (congestive) heart failure (2) Cellulitis of right foot Code(s): L03.115 - CELLULITIS OF RIGHT LOWER LIMB (3) Arrhythmia Code(s): I49.9 - CARDIAC ARRHYTHMIA, UNSPECIFIED Visit type - Emergency Visit Emergency Visit: Yes ED Registration Date: 09/15/16 Care time: The patient presented to the Emergency Department on the above date and was hospitalized for further evaluation of their emergent condition. - New Patient This patient is new to me today: Yes Date on this admission: 09/16/16 - Critical Care Critical Care patient: Yes Total Critical Care Time (in minutes): 35 Critical Care Statement: The care of this patient involved high complexity decision making to prevent further life threatening deterioration of the patient 's condition and/or to evaluate & treat vital organ system(s) failure or risk of failure.
[2016-09-16 14:54] VITALS: BP 118/82; PULSE 90
--- NOTE | 2016-09-16 16:13 | DS ---
Physical Examination Vital Signs: Vital Signs Temperature 36.6 C 09/16/16 06:00 Pulse Rate 90 09/16/16 14:53 Respiratory Rate 18 09/16/16 14:53 Blood Pressure 118/82 09/16/16 14:53 O2 Sat by Pulse Oximetry (%) 98 09/16/16 09:20 Labs: CBC, BMP 09/16/16 07:25 09/16/16 03:49 Discharge Summary Reason For Visit: CHF EXAERBATION Current Active Problems Arrhythmia (Acute) CHF exacerbation (Acute) Heart block AV second degree (Acute) Hospital Course: Please refer to progress note today for physical and plan. Patient transferred to [facility] for pacemaker placement for Mobitz type 2 heart block. Condition: Fair - Instructions Referrals: Veda Alexander MD [Primary Care Provider] - Disposition: TRANSFER ACUTE CARE/OTHER HOSP - Home Medications Comprehensive Discharge Medication List: Ambulatory Orders Insulin (Novolog) [Novolog Flexpen -] 0 units SQ TIDAC #0 pen 08/07/13 Aspirin Coated [Ecotrin -] 81 mg PO DAILY tablet.ec 04/30/15 Insulin (Novolog 70/30) [Novolog Mix 70/30 Flexpen -] 40 units SQ BID 06/28/16 Atorvastatin Ca [Lipitor] 80 mg PO HS #30 tablet 07/05/16 Clonazepam [Klonopin -] 0.5 mg PO HS #30 tablet MDD 1mg 07/05/16 Metoprolol Succinate [Toprol XL -] 25 mg PO DAILY #30 tab.sr 07/05/16 Pantoprazole Sodium [Protonix -] 40 mg PO DAILY #30 tab.ec 07/05/16 Torsemide [Demadex -] 150 mg PO DAILY 09/15/16
== END 2016-09-16 15:04 | disposition short-term general hospital (02) | DRG 291 ==
LOC: JER 14:29 → JERBED 17:14 → J4S 20:38 → JICU 09-16 04:40
PROVIDERS: ADMIT Internal Medicine; ATTEND Internal Medicine
DX: I13.0 Hypertensive heart and chronic kidney disease with heart failure and stage 1 through stage 4 chronic kidney disease, or unspecified chronic kidney disease (principal); I50.33 Acute on chronic diastolic (congestive) heart failure; J96.01 Acute respiratory failure with hypoxia; Z68.41 Body mass index [BMI] 40.0-44.9, adult; N17.9 Acute kidney failure, unspecified; L03.115 Cellulitis of right lower limb; E11.22 Type 2 diabetes mellitus with diabetic chronic kidney disease; N18.3 Chronic kidney disease, stage 3 (moderate); R00.1 Bradycardia, unspecified; Z87.891 Personal history of nicotine dependence; E66.01 Morbid (severe) obesity due to excess calories; Z79.4 Long term (current) use of insulin; Z89.431 Acquired absence of right foot; I25.10 Atherosclerotic heart disease of native coronary artery without angina pectoris; E78.5 Hyperlipidemia, unspecified; I44.1 Atrioventricular block, second degree; I73.9 Peripheral vascular disease, unspecified; I25.2 Old myocardial infarction; E11.40 Type 2 diabetes mellitus with diabetic neuropathy, unspecified
CPT/HCPCS: 36415; 36600; 71010-TC; 80048; 80053; 80061; 81003; 81015; 82553; 82570; 82803; 83036; 83721; 83735; 83880; 84100; 84156; 84484; 84540; 85025; 85027; 87205; 93005; 93010; 93306-TC; 94660; 99283-25; J1644

== ENCOUNTER → 2017-05-29 | Day surgery (SDC) | payer BC ==
--- NOTE | 2017-05-30 14:27 | PATH ---
Cytology Non-Gynecological Report Patient Name: RONN NARANJO [facility]. Rec. #: [id number] /Age/Gender: 1955 (Age: 62) / M Account: [id number] Location: RADIOLOGY [facility] [[email or web address]] Taken: 05/29/2017 Received: 05/29/2017 Reported: 05/30/2017 Physicians: Kitty Riley M.D. Specimen(s) Received RIGHT THYROID FNA Clinical History Right thyroid nodule, 3.35 x 2.32 x 2.04 cm Final Diagnosis THYROID, RIGHT, FINE NEEDLE ASPIRATION: SATISFACTORY FOR EVALUATION. BETHESDA CLASS II: BENIGN. CYTOLOGIC FINDINGS ARE CONSISTENT WITH A BENIGN FOLLICULAR NODULE WITH FEATURES SUGGESTIVE OF CHRONIC LYMPHOCYTIC THYROIDITIS. FOLLICULAR CELLS DISPERSED CLUSTERS AND AGGREGATES IN A BACKGROUND OF SCANT COLLOID, LYMPHOCYTES, RARE MACROPHAGES, AND LYMPHOID TANGLES PRESENT. Comment: Suggest clinical/radiologic and serologic correlation. Electronically Signed Veda Stark M.D. Gross Description Received are eight direct smears, four of which are air-dried and Diff-Quik stained, and four of which are alcohol fixed and Pap stained. Also received is 20 ml of bloody formalin from which one cellblock is prepared.
== END | disposition home or self-care (01) ==
LOC: JRADIR 09:47
PROVIDERS: ATTEND Internal Medicine Endocrinology, Diabetes & Metabolism
PROC: 0GBH3ZX Excision of Right Thyroid Gland Lobe, Percutaneous Approach, Diagnostic (ICD-10-PCS; principal; 2017-05-29)
DX: E04.1 Nontoxic single thyroid nodule (principal)
CPT/HCPCS: 10022; 76942; 88173; 88305-TC

== ENCOUNTER 2018-04-23 13:57 | Observation (INO) | payer OTHER, BC ==
--- NOTE | 2018-04-23 15:24 | PDOC ---
History of Present Illness - General Chief Complaint: Lightheaded Stated Complaint: DIZZINESS / LIGHTHEADED Time Seen by Provider: 04/23/18 15:24 History Source: Patient, Old Records Exam Limitations: No Limitations - History of Present Illness Initial Comments: HPI: 63 y/o male presenting to [facility] ER complaining of episodes of lightheadedness and dizziness with trouble walking. Pt denied experiencing symptoms at time of interview. Symptoms started this morning after waking and lasted several hours. Pt was then asymptomatic for several hours before symptoms returned in the emergency department. Symptoms resolved after only a few minutes. Pt states it felt like the room was spinning. Unable to recall if turning head to left or right exacerbated the symptoms. [place] worse when changing position. No history of similar episodes. No recent illness. Past History - Past Medical History Allergies/Adverse Reactions: Allergies Allergy/AdvReac Type Severity Reaction Status Date / Time No Known Drug Allergies Allergy Verified 04/23/18 14:21 Home Medications: Ambulatory Orders Insulin (Novolog) [Novolog Flexpen -] 0 units SQ TIDAC #0 pen 08/07/13 Aspirin Coated [Ecotrin -] 81 mg PO DAILY tablet.ec 04/30/15 Insulin (Novolog 70/30) [Novolog Mix 70/30 Flexpen -] 60 units SQ BID 06/28/16 Metoprolol Succinate [Toprol XL -] 25 mg PO DAILY #30 tab.sr 07/05/16 Pantoprazole Sodium [Protonix -] 40 mg PO DAILY #30 tab.ec 07/05/16 Torsemide [Demadex -] 60 mg PO DAILY 09/15/16 Liraglutide [Victoza -] 1.2 mg SQ BID 06/07/17 Gentamicin 0.1% Ointment [Garamycin 0.1% Ointment -] 1 applic TP DAILY #30 grams 12/20/17 Ferrous Sulfate 325 mg PO DAILY 02/28/18 Losartan Potassium 25 mg PO DAILY 02/28/18 Sodium Bicarbonate - 650 mg PO TID 02/28/18 Atorvastatin Ca [Lipitor] 40 mg PO HS 04/23/18 Clopidogrel Bisulfate [Plavix] 75 mg PO DAILY 04/23/18 Anemia: No Asthma: No Cancer: No Cardiac Disorders: No CVA: No COPD: No CHF: No Dementia: No Diabetes: Yes GI Disorders: No Disorders: No HTN: Yes Hypercholesterolemia: Yes Liver Disease: No Seizures: No Thyroid Disease: No - Surgical History Abdominal Surgery: No Appendectomy: No Cardiac Surgery: No Cholecystectomy: No Lung Surgery: No Neurologic Surgery: No Orthopedic Surgery: Yes (Transmetatarsal amputation of right foot) - Immunization History Immunization Up to Date: Yes - Suicide/Smoking/Psychosocial Hx Smoking Status: Yes Smoking History: Never smoked Have you smoked in the past 12 months: No Number of Cigarettes Smoked Daily: 10 If you are a former smoker, when did you quit?: 2015 'Breaking Loose' booklet given: 04/10/15 Hx Alcohol Use: No Drug/Substance Use Hx: No Substance Use Type: None Hx Substance Use Treatment: No Review of Systems - Review of Systems Able to Perform ROS?: Yes Comments:: In addition to that documented in the HPI above, the additional ROS was obtained : Constitutional: Denies fevers or chills Head: Denies headache, vision changes, or hearing changes ENMT: Denies sore throat CV: Denies chest pain Resp: Denies SOB GI: Denies vomiting or diarrhea : Denies painful urination MSK: Denies recent trauma Skin: Denies new rashes Neuro: Denies new numbness or tingling or weakness Endocrine: Denies polyuria Heme: Denies bleeding or bruising *Physical Exam - Vital Signs Last Vital Signs Temp Pulse Resp BP Pulse Ox 98.2 F 73 16 143/79 98 04/23/18 14:22 04/23/18 14:22 04/23/18 14:22 04/23/18 14:22 04/23/18 14:22 - Physical Exam Comments: Constitutional: Well-developed, well-nourished, non-toxic adult male in no acute distress or obvious discomfort. Morbidly obese body habitus. Found semi- fowlers on hospital bed. Alert and oriented x4. Answered all questions appropriately and completely. Speech was non-labored, non-pressured. Head: Normocephalic. No obvious external signs of trauma. Eyes: Pupils 3mm and PERRL bilaterally. EOMI. No lateral or vertical nystagmus. Sclerae white. Conjunctiva moist and not injected. Ears: External auditory canals and tympanic membranes pearly schultz. Hearing grossly intact. Nose: No nasal discharge. Throat: Oral cavity and pharynx normal. No inflammation, swelling, exudate, or lesions. Neck: Supple, trachea is midline. Cardiovascular / Chest: Regular rate and regular rhythm. No murmur, rubs, clicks, or gallops. Peripheral pulses: radial pulses full. Respiratory: Breathing unlabored. Equal chest rise and fall. Clear to auscultation bilaterally. No stridor, no wheezing, no rhonchi. Gastrointestinal: abdomen is soft, non-tender, non-distended. Neuro: Alert and oriented. Moving all four extremities spontaneously. No focal deficits. Cranial nerves intact. Sensation to all four extremities intact. Upper and lower extremities: proximal and distal strength 5/5. Utility Clerk strength 5/ 5 - equal and symmetric. Plantar flexion and dorsiflexion 5/5. No nuchal rigidity. Rapid alternating movements and heel to woods intact. Skin: Warm, dry, and intact. No bruising, rashes, or other lesions. MSK: 1+ pretibial edema bilaterally. Psych: Affect: appropriate. Mood: normal. Moderate Sedation - Procedure Monitoring Vital Signs: Procedure Monitoring Vital Signs Temperature 98.2 F 04/23/18 14:22 Pulse Rate 73 04/23/18 14:22 Respiratory Rate 16 04/23/18 14:22 Blood Pressure 143/79 04/23/18 14:22 O2 Sat by Pulse Oximetry (%) 98 04/23/18 14:22 ED Treatment Course - LABORATORY CBC & Chemistry Diagram: 04/23/18 17:06 04/23/18 17:06 Medical Decision Making - Medical Decision Making *Reviewed vital signs, nursing notes, and prior visit documentation (if available). Suspect likely peripheral vertigo. 18:[address] Thompson through office answering service. Awaiting call back. 18:[address] Thompson. Verbally appraised of the pts HPI, ED course, and current plan of management. Agrees with plan to repeat troponin at three hour dav. States symptoms are possibly related to the pts diuretic usage. Requests the dosage not be changed because of the tenuous CHF status. 19:00 Pt signed out to resident Dr. Gold after she was verbally appraised of the pts HPI, current ED course, and plan of management. Will follow up on three hour troponin. Dispo depending on result. Neurology referral placed for Dr. Womack. 04/23/18 19:14 *DC/Admit/Observation/Transfer - Referrals Referrals: Veda Alexander MD [Primary Care Provider] - Ramy Womack MD [Staff Physician] - - Patient Instructions - Post Discharge Activity
[2018-04-23] MEDS ORDERED: MECLIZINE HCL 12.5 MG TABLET PO ONE (15:55)
[2018-04-23] MEDS ORDERED: SODIUM CHLORIDE 0.9% 500 ML INFUS.BAG IV ONE (15:55)
[2018-04-23] MEDS ORDERED: MECLIZINE HCL 25 MG TABLET (FP) PO ONE (15:56)
[2018-04-23 17:26] LABS: BASO % 0.6 % (0-2.0); EOS % 4.5 % (0-4.5); HEMATOCRIT 41.3 % (35.4-49); LYMPH % 16.3 % (8-40); MCH 27.6 pg (25.7-33.7); MEAN PLT VOLUME 8.7 fl (7.5-11.1); MONO % 9.3 % (3.8-10.2); NEUT % 69.3 % (42.8-82.8); PLATELET COUNT 262 K/MM3 (134-434); RBC 5.09 M/mm3 (4.00-5.60); RDW 16.4 % (11.9-15.9); WHITE BLOOD COUNT 7.7 K/mm3 (4.0-10.0)
[2018-04-23] MEDS ORDERED: MECLIZINE HCL 25 MG TABLET (FP) ONE (17:33)
--- NOTE | 2018-04-23 17:35 | PDOC ---
Attending Attestation - HPI HPI: 04/23/18 18:34 The patient is a 63 year old male, with a significant past medical history of HLD, DM who presents to the emergency department with several episodes of lightheadedness and dizziness associated with trouble walking since this morning. The patient describes the pain as the room is spinning The patient states the symptoms lasted for several hours, self resolved, and returned in the emergency room. The patient states he pain is aggravated when changing positions. The patient denies any tingling to extremities, visual changes and confusion. The patient denies chest pain, shortness of breath, or headache The patient denies fever, chills, nausea, vomit, diarrhea or constipation. Allergies: NKDA Past surgical history: Transmetatarsal amputation of right foot Social history: None reported PCP: Dr. Veda Alexander - Physicial Exam PE: 04/23/18 18:36 GENERAL: Awake, alert, in no acute distress HEAD: No signs of trauma EYES: PERRLA, EOMI, sclera anicteric, conjunctiva clear ENT: Auricles normal inspection, hearing grossly normal, nares patent, oropharynx clear without exudates. Moist mucosa NECK: Normal ROM, supple, no lymphadenopathy, JVD, or masses LUNGS: Breath sounds equal, clear to auscultation bilaterally. No wheezes, and no crackles HEART: Regular rate and rhythm, normal S1 and S2, no murmurs, rubs or gallops ABDOMEN: (+)protuberant. , nontender, normoactive bowel sounds. No guarding, no rebound. No masses EXTREMITIES: (+) left lower extremity has chronic venous stasis, +1 pitting edema. (+) Right lower extremity amputation [id number]. Normal range of motion. No clubbing or cyanosis. No cords, erythema, or tenderness NEUROLOGICAL: (+) alert and oriented 3. Cranial nerves II through XII grossly intact. Normal speech, normal gait SKIN: Warm, Dry, normal turgor, no rashes or lesions noted. <You Cummings - Last Filed: 04/23/18 18:34> - Resident Resident Name: Conner Mistry - ED Attending Attestation I have performed the following: I have examined & evaluated the patient, The case was reviewed & discussed with the resident, I agree w/resident's findings & plan, Exceptions are as noted - HPI HPI: 04/23/18 17:33 63-year-old male presents with a history of several vertiginous episodes today complaining of some room spinning. He denies any numbness or tingling to extremities, confusion, fever or chills or headache, chest pain or visual changes - Physicial Exam PE: 04/23/18 17:35 Cardiovascular 63-year-old male presents with complaint of vertigo. Head normocephalic/atraumatic Neck supple, no JVD, no bruits. Lungs clear to auscultation. CVS regular rate and rhythm S1, S2 Abdomen protuberant, nontender. Extremities left lower extremity has chronic venous stasis, +1 pitting edema. Right lower extremity amputation [id number] no acute cva tenderness Skin warm and dry. Neuro alert and oriented 3. Psych appropriate - Medical Decision Making 04/23/18 17:39 Patient has an extensive history of coronary artery disease and has cardiac stents, he has diabetes and has a [id number] amputation of right foot, morbidly obese, hypertensive, hyperlipidemia. Plan EKG, cardiac enzymes, CBC, comp, coags Patient was scheduled for a Persantine stress test, but they were unable to gain access and therefore he is scheduled to have a Persantine stress test done [facility] on May 03. 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 He smokes 5 packs a day 04/25/18 02:52 pt admitted <Belia Ward - Last Filed: 04/25/18 02:52> Attestations - Attestations 04/23/18 18:37 Documentation prepared by You Cummings, acting as biomedical engineering professor for Belia Ward MD <You Cummings - Last Filed: 04/23/18 18:34>
[2018-04-23 17:43] LABS: INR 1.02 (0.83-1.09)
[2018-04-23 17:46] LABS: ACTIVATED PTT 27.4 SECONDS (25.2-36.5)
[2018-04-23 17:55] LABS: ALBUMIN 3.7 g/dl (3.4-5.0); ALK PHOS 88 U/L (45-117); ANION GAP 9 MMOL/L (8-16); BILIRUBIN,TOTAL 0.3 mg/dL (0.2-1); BLOOD UREA NITROGEN 44 mg/dL (7-18); CALCIUM 8.6 mg/dL (8.5-10.1); CHLORIDE 103 mmol/L (98-107); CO2 26 mmol/L (21-32); CREATININE 1.8 mg/dL (0.55-1.3); GLUCOSE,RANDOM 129 mg/dL (74-106); POTASSIUM 3.9 mmol/L (3.5-5.1); SGOT/AST 18 U/L (15-37); SGPT/ALT 26 U/L (13-61); SODIUM 138 mmol/L (136-145); TOT PROT 7.9 g/dl (6.4-8.2)
--- NOTE | 2018-04-23 19:39 | PDOC ---
*Physical Exam - Vital Signs Last Vital Signs Temp Pulse Resp BP Pulse Ox 98.2 F 73 16 143/79 98 04/23/18 14:22 04/23/18 14:22 04/23/18 14:22 04/23/18 14:22 04/23/18 14:22 ED Treatment Course - LABORATORY CBC & Chemistry Diagram: 04/23/18 17:06 04/23/18 17:06 - ADDITIONAL ORDERS Additional order review: Laboratory Results 04/23/18 04/23/18 04/23/18 17:06 17:06 17:06 PT with INR 12.00 INR 1.02 PTT (Actin FS) 27.4 Sodium 138 Potassium 3.9 Chloride 103 Carbon Dioxide 26 Anion Gap 9 BUN 44 H Creatinine 1.8 H Creat Clearance w eGFR 38.55 Random Glucose 129 H Calcium 8.6 Total Bilirubin 0.3 AST 18 ALT 26 Alkaline Phosphatase 88 Creatine Kinase 133 Troponin I 0.02 Total Protein 7.9 Albumin 3.7 04/23/18 17:06 RBC 5.09 MCV 81.0 MCHC 34.0 RDW 16.4 H MPV 8.7 Neutrophils % 69.3 Lymphocytes % 16.3 D Monocytes % 9.3 Eosinophils % 4.5 Basophils % 0.6 - Medications Given in the ED: ED Medications Discontinued Medications Generic Name Dose Route Start Last Admin Trade Name Freq PRN Reason Stop Dose Admin Meclizine HCl 25 mg 04/23/18 15:56 04/23/18 17:41 Antivert - PO 04/23/18 15:57 25 mg ONCE ONE Administration Sodium Chloride 500 ml 04/23/18 15:55 04/23/18 17:41 Normal Saline - IV 04/23/18 15:56 500 ml ONCE ONE Administration Medical Decision Making - Medical Decision Making 04/23/18 19:37 Sign out received from Dr Mistry. Lawrence Duarte is a 63yo man with a PMH of HTN, HLD, CAD s/p NSTEMI s/p stents , PVD, DM2 w/ neuropathy, CKD, CHF, 2nd degree AV block who presented to the ED with several episodes of vertigo today. He has no known history of vertigo. ED workup notable for: - Labs unremarkable - Trop negative - Given meclizine for vertigo - Dr Thompson contacted by Dr Mistry. States dizziness may be due to lasix but would like dose to remain the same at this time. - Plan for repeat trop at 8pm - Continues to feel vertigo. Will give 500cc bolus and reassess. May need imaging if vertigo continues. 04/23/18 20:47 - Repeat trop negative - Continues to feel vertigo - states the "floor is moving" when he tries to walk - CT head ordered to evaluate for acute abnormalities. Will most likely need to be admitted after completing CT 04/24/18 00:44 - CT head completed. No acute abnormalities. - Spoke to Dr Garcia regarding admission. Will be obs on Dr Delgado's service. Discussed with Dr Ward. Lucy Gold PGY1 *DC/Admit/Observation/Transfer Diagnosis at time of Disposition: Vertigo - Discharge Dispostion Decision to Admit order: Yes - Referrals Referrals: Ramy Womack MD [Staff Physician] - Veda Alexander MD [Primary Care Provider] - - Patient Instructions - Post Discharge Activity
--- NOTE | 2018-04-23 23:31 | PN ---
Teaching Attending Note Name of Resident: Ramy Garcia ATTENDING PHYSICIAN STATEMENT I saw and evaluated the patient. I reviewed the resident's note and discussed the case with the resident. I agree with the resident's findings and plan as documented. SUBJECTIVE: Patient is a 63 year old man with a PMH of HTN, HLD, CAD s/p NSTEMI s/p stents, PVD, NIDDM with neuropathy, CKD, CHF and 2nd degree AV block who on presentation to the ER complained of episodes of lightheadedness and dizziness with trouble walking. However when i saw him, he insisted it was not dizziness, that his legs just felt weak and he is unable to stand. Symptoms started this morning after waking and lasted several hours. He was then asymptomatic for several hours before symptoms returned in the emergency department. Symptoms resolved after only a few minutes. No history of similar episodes. No recent illness. He has SOB when walking up an incline. Denies nausea, vomiting, chest pain, photophobia, blurring of vision, change in bladder or bowel function. He got Meclizine in the ER with no relief. OBJECTIVE: Alert and morbidly obese; no orthostasis Vital Signs Period Temp Pulse Resp BP Sys/Peter Pulse Ox Last 24 Hr 98.2 F 73-79 16-20 118-143/79-93 98-98 HEENT: No Jaundice, eye redness or discharge, PERRLA, EOMI. Normocephalic, atraumatic. External ears are normal and hearing is grossly intact. No nasal discharge. Neck: Supple, nontender. No palpable adenopathy or thyromegaly. No JVD Chest: Good effort. Clear to auscultation and percussion. Heart: Regular. No S3, rub or murmur Abdomen: Not distended, soft, nontender and no HSM. No rebound or guarding. Normal bowel sounds. Ext: Peripheral pulses intact. No leg edema. Right foot TMA. Skin: Warm and dry. No petechiae, rash or ecchymosis. Neuro: Alert. Oriented x3. Unable to stand and walk. CN 2-12 grossly intact. Sensation grossly intact in all four extremities and DTR are symmetric. Plantar reflexes are flexor. Psych: Appropriate mood and affect. Good insight. Home Medications Medication Instructions Recorded Insulin (Novolog) [Novolog Flexpen 0 units SQ TIDAC #0 pen 08/07/13 -] Aspirin Coated [Ecotrin -] 81 mg PO DAILY tablet.ec 04/30/15 Insulin (Novolog 70/30) [Novolog 60 units SQ BID 06/28/16 Mix 70/30 Flexpen -] Metoprolol Succinate [Toprol XL -] 25 mg PO DAILY #30 tab.sr 07/05/16 Pantoprazole Sodium [Protonix -] 40 mg PO DAILY #30 tab.ec 07/05/16 Torsemide [Demadex -] 60 mg PO DAILY 09/15/16 Liraglutide [Victoza -] 1.2 mg SQ BID 06/07/17 Gentamicin 0.1% Ointment 1 applic TP DAILY #30 grams 12/20/17 [Garamycin 0.1% Ointment -] Ferrous Sulfate 325 mg PO DAILY 02/28/18 Losartan Potassium 25 mg PO DAILY 02/28/18 Sodium Bicarbonate - 650 mg PO TID 02/28/18 Atorvastatin Ca [Lipitor] 40 mg PO HS 04/23/18 Clopidogrel Bisulfate [Plavix] 75 mg PO DAILY 04/23/18 Abnormal Lab Results 04/23/18 04/23/18 17:06 17:06 RDW 16.4 H BUN 44 H Creatinine 1.8 H Random Glucose 129 H ASSESSMENT AND PLAN: 1. Lower extremity weakness/?Vertigo - Etiology unclear, though it may be related to his chronic diabetic neuropathy. Head CT did not show any intracranial pathology. EKG shows NSR with first degree AV block and no significant ST-T wave changes. Will get brain, C-spine and lumbosacral MRI, consult PT and neurolgy. If MRI is negative, then will consider EMG and nerve conduction studies. 2. DM For now, we will hold the home diabetes drugs and implement sliding scale insulin regimen. Provide comprehensive diabetes care with patient teaching and counseling about the importance of adherence to prescribed diabetes regimen, euglycemia, eye care and foot care. 3. CKD? - Has multiple risk factors. Will increase oral fluid intake to correct any associated dehydration. Get UA, kidney sonogram, PTH and phosphate levels. Consult nephrology and avoid nephrotoxic agents such as NSAIDS, aminoglycosides , contrast dyes and certain Alternative medicine products. 4. Morbid Obesity Counseled on the risks associated with obesity. Will provide patient all the necessary assistance, counseling and positive reinforcement to facilitate weight loss. Consult telemedicine physician. 5. Hypertension - Restart outpatient antihypertensive drugs and revise regimen to ensure smooth vills-cvn-bcebs good BP control. Nonpharmacologic measures to control hypertension like weight loss, salt restriction and exercise discussed. 6. DVT prophylaxis - Heparin 5000u sq tid. 7. Advance directives - Full code
--- NOTE | 2018-04-24 02:03 | HP ---
CHIEF COMPLAINT: Inability to ambulate PCP: Dr. Argelia Contreras HISTORY OF PRESENT ILLNESS: Pt. is a 63 y.o. M presenting with unsteady gait for 1 day. Pt. states that he woke up Monday morning and noticed that as he tried to get out of the bed that his legs felt weak in both lower extremities. He states it feels similar when he has "low blood sugar in 110-115." Pt. states that this is the first time something like this has ever happened. Pt. denies any dizziness or vertigo and emphasizes that his legs felt weak on standing. Pt. states that he only notices the symptoms when he tries to stand up from a seated or lying position. Pt. states that the symptoms mahesh when he sits back down. Of note Pt. steated that the only recent changes has been a switch to Plavix from Brillinta on (Pt. was on Billinta for 18 months)Pt. denies feeling like the room or his own body is spinning, denies changes in vision or hearing. Pt. denies nausea, vomiting, changes in bowel or urinary habits. ER course was notable for: (1) EKG, labs, Head CT (2) Meclizine, Neurology Consult, Cardiology consult (3) Recent Travel: No PAST MEDICAL HISTORY: HTN, HLD, CAD (s/p NSTEMI + Stents), PVD, NIDDM w/ Neuropathy, CKD, HFrEF, 2nd Degree AV Block? PAST SURGICAL HISTORY: R. Transmetatarsal amputation Social History: Smoking: Former smoker (5-6 pack per year), quit 3 years ago. Alcohol: Occasional Beer Drugs: Denies Allergies No Known Drug Allergies Allergy (Verified 04/23/18 14:21) HOME MEDICATIONS: Home Medications Medication Instructions Recorded Insulin (Novolog) [Novolog Flexpen 0 units SQ TIDAC #0 pen 08/07/13 -] Aspirin Coated [Ecotrin -] 81 mg PO DAILY tablet.ec 04/30/15 Insulin (Novolog 70/30) [Novolog 60 units SQ BID 06/28/16 Mix 70/30 Flexpen -] Metoprolol Succinate [Toprol XL -] 25 mg PO DAILY #30 tab.sr 07/05/16 Pantoprazole Sodium [Protonix -] 40 mg PO DAILY #30 tab.ec 07/05/16 Torsemide [Demadex -] 60 mg PO DAILY 09/15/16 Liraglutide [Victoza -] 1.2 mg SQ BID 06/07/17 Gentamicin 0.1% Ointment 1 applic TP DAILY #30 grams 12/20/17 [Garamycin 0.1% Ointment -] Ferrous Sulfate 325 mg PO DAILY 02/28/18 Losartan Potassium 25 mg PO DAILY 02/28/18 Sodium Bicarbonate - 650 mg PO TID 02/28/18 Atorvastatin Ca [Lipitor] 40 mg PO HS 04/23/18 Clopidogrel Bisulfate [Plavix] 75 mg PO DAILY 04/23/18 REVIEW OF SYSTEMS CONSTITUTIONAL: Absent: fever, chills, diaphoresis, generalized weakness, malaise, loss of appetite, weight change HEENT: Absent: rhinorrhea, nasal congestion, throat pain, throat swelling, difficulty swallowing, mouth swelling, ear pain, eye pain, visual changes CARDIOVASCULAR: Absent: chest pain, syncope, palpitations, irregular heart rate, lightheadedness , peripheral edema RESPIRATORY: Absent: cough, shortness of breath, dyspnea with exertion, orthopnea, wheezing, stridor, hemoptysis GASTROINTESTINAL: Absent: abdominal pain, abdominal distension, nausea, vomiting, diarrhea, constipation, melena, hematochezia GENITOURINARY: Absent: dysuria, frequency, urgency, hesitancy, hematuria, flank pain, genital pain MUSCULOSKELETAL: Absent: myalgia, arthralgia, joint swelling, back pain, neck pain SKIN: Absent: rash, itching, pallor HEMATOLOGIC/IMMUNOLOGIC: Absent: easy bleeding, easy bruising, lymphadenopathy, frequent infections ENDOCRINE: Absent: unexplained weight gain, unexplained weight loss, heat intolerance, cold intolerance NEUROLOGIC: Absent: headache, focal weakness or paresthesias, dizziness, unsteady gait, seizure, mental status changes, bladder or bowel incontinence PSYCHIATRIC: Absent: anxiety, depression, suicidal or homicidal ideation, hallucinations. PHYSICAL EXAMINATION Vital Signs - 24 hr 04/23/18 04/23/18 14:22 20:06 Temperature 98.2 F Pulse Rate 73 Pulse Rate [ 79 Apical] Respiratory 16 20 Rate Blood Pressure 143/79 Blood Pressure 118/93 [Left Arm] O2 Sat by Pulse 98 98 Oximetry (%) GENERAL: Awake, alert, and fully oriented, in no acute distress. HEAD: Normal with no signs of trauma. EYES: Pupils equal, round and reactive to light, extraocular movements intact, sclera anicteric, conjunctiva clear. No lid lag. EARS, NOSE, THROAT: Ears normal, nares patent, oropharynx clear without exudates. Moist mucous membranes. NECK: Normal range of motion, supple without lymphadenopathy, JVD, or masses. LUNGS: Breath sounds equal, clear to auscultation bilaterally. No wheezes, and no crackles. No accessory muscle use. HEART: Regular rate and rhythm, normal S1 and S2 without murmur, rub or gallop. ABDOMEN: Soft, nontender, not distended, normoactive bowel sounds, no guarding, no rebound, no masses. No hepatomegaly or splenomegaly. MUSCULOSKELETAL: Normal range of motion at all joints. No bony deformities or tenderness. No CVA tenderness. UPPER EXTREMITIES: 2+ pulses, warm, well-perfused. No cyanosis. No clubbing. No peripheral edema. LOWER EXTREMITIES: 2+ pulses, warm, well-perfused. No calf tenderness. No peripheral edema. NEUROLOGICAL: Cranial nerves II-XII intact. Normal speech. Normal gait. PSYCHIATRIC: Cooperative. Good eye contact. Appropriate mood and affect. SKIN: Warm, dry, normal turgor, no rashes or lesions noted, normal capillary refill. Laboratory Results - last 24 hr 04/23/18 04/23/18 04/23/18 17:06 17:06 17:06 WBC 7.7 RBC 5.09 Hgb 14.0 Hct 41.3 MCV 81.0 MCH 27.6 MCHC 34.0 RDW 16.4 H Plt Count 262 MPV 8.7 Absolute Neuts (auto) 5.3 Neutrophils % 69.3 Lymphocytes % 16.3 D Monocytes % 9.3 Eosinophils % 4.5 Basophils % 0.6 Nucleated RBC % 0 PT with INR INR PTT (Actin FS) Sodium 138 Potassium 3.9 Chloride 103 Carbon Dioxide 26 Anion Gap 9 BUN 44 H Creatinine 1.8 H Creat Clearance w eGFR 38.55 POC Glucometer Random Glucose 129 H Calcium 8.6 Total Bilirubin 0.3 AST 18 ALT 26 Alkaline Phosphatase 88 Creatine Kinase 133 Troponin I 0.02 Total Protein 7.9 Albumin 3.7 04/23/18 04/23/18 04/23/18 17:06 19:35 19:38 WBC RBC Hgb Hct MCV MCH MCHC RDW Plt Count MPV Absolute Neuts (auto) Neutrophils % Lymphocytes % Monocytes % Eosinophils % Basophils % Nucleated RBC % PT with INR 12.00 INR 1.02 PTT (Actin FS) 27.4 Sodium Potassium Chloride Carbon Dioxide Anion Gap BUN Creatinine Creat Clearance w eGFR POC Glucometer 109 118 Random Glucose Calcium Total Bilirubin AST ALT Alkaline Phosphatase Creatine Kinase Troponin I Total Protein Albumin 04/23/18 19:42 WBC RBC Hgb Hct MCV MCH MCHC RDW Plt Count MPV Absolute Neuts (auto) Neutrophils % Lymphocytes % Monocytes % Eosinophils % Basophils % Nucleated RBC % PT with INR INR PTT (Actin FS) Sodium Potassium Chloride Carbon Dioxide Anion Gap BUN Creatinine Creat Clearance w eGFR POC Glucometer Random Glucose Calcium Total Bilirubin AST ALT Alkaline Phosphatase Creatine Kinase Troponin I 0.03 Total Protein Albumin ASSESSMENT/PLAN: Pt. is a 63 y.o. M w/ HTN, HLD, CAD (s/p NSTEMI + Stents), PVD, NIDDM w/ Neuropathy, CKD, HFrEF presenting with unsteady gait for 1 day. #Unsteady Gait Head CT negative for acute pathology c/w Meclizine 25mg TID f/u Neuro consult (Dr. Womack) f/u Brain, C-Spine and Lumbrosacral MRI orthostatic hypotension negative In ED Dr. Thompson called, stated that he would like Pt. to remain on diuretic as low likelihood as causative agent given acuity of symptoms (concern over whether diuretic was causing the lower extremity weakness) f/u why Pt. switched from Brillinta to Plavix #DM ISS TIDAC BG TIDAC Per Pt. A1c from last week is 9.4% which improved from the prior of 9.8% #BRITTNEY c/w CPAP #HTN c/w Losartan, Torsemide and Metoprolol #CKD stable stage 3a? eGFR: 38.55 f/u UA #FEN encourage PO intake monitor electrolytes replete as needed Diabetic/ Na restricted Diet #DVT Lovenox 40mg SQ Visit type - Emergency Visit Emergency Visit: Yes ED Registration Date: 04/24/18 Care time: The patient presented to the Emergency Department on the above date and was hospitalized for further evaluation of their emergent condition. - New Patient This patient is new to me today: Yes Date on this admission: 04/24/18 - Critical Care Critical Care patient: No
[2018-04-24] MEDS ORDERED: MECLIZINE HCL 25 MG TABLET (FP) ONE (06:07)
[2018-04-24 06:41] LABS: HEMATOCRIT 37.9 % (35.4-49); HEMOGLOBIN 12.8 GM/dL (11.7-16.9); MCH 27.5 pg (25.7-33.7); MCHC 33.9 g/dl (32.0-35.9); MEAN CELL VOLUME 81.2 fl (80-96); MEAN PLT VOLUME 8.7 fl (7.5-11.1); PLATELET COUNT 215 K/MM3 (134-434); RBC 4.67 M/mm3 (4.00-5.60); RDW 16.9 % (11.9-15.9); WHITE BLOOD COUNT 7.6 K/mm3 (4.0-10.0)
[2018-04-24] MEDS: MECLIZINE HCL 25 MG TABLET (FP) PO SCH ×3 (06:52→22:58)
[2018-04-24] MEDS: INSULIN SLIDING SCALE (NOVOLOG) 1 VIAL SQ SCH ×3 (06:53→19:17)
[2018-04-24] MEDS: SODIUM BICARBONATE 650 MG TABLET PO SCH ×3 (06:54→22:57)
[2018-04-24 07:23] LABS: ANION GAP 8 MMOL/L (8-16); BLOOD UREA NITROGEN 41 mg/dL (7-18); CALCIUM 8.3 mg/dL (8.5-10.1); CHLORIDE 104 mmol/L (98-107); CO2 25 mmol/L (21-32); CREATININE 1.7 mg/dL (0.55-1.3); GLUCOSE,RANDOM 157 mg/dL (74-106); MAGNESIUM 2.3 mg/dL (1.8-2.4); PHOSPHOROUS 3.9 mg/dL (2.5-4.9); POTASSIUM 3.5 mmol/L (3.5-5.1); SODIUM 137 mmol/L (136-145)
[2018-04-24 08:25] LABS: URINE APPEARANCE CLEAR; URINE BILIRUBIN NEGATIVE (<2.0 mg/dL); URINE COLOR STRAW; URINE GLUCOSE (UA) 3+ (NEGATIVE); URINE KETONE NEGATIVE (NEGATIVE); URINE LEUK ESTERASE NEGATIVE (NEGATIVE); URINE NITRITE NEGATIVE (NEGATIVE); URINE PROTEIN 1+ (NEGATIVE); URINE UROBILINOGEN NEGATIVE mg/dL (0.2-1.0)
[2018-04-24 08:51] LABS: URINE HYALINE CAST 1 /lpf; URINE MUCUS RARE
[2018-04-24] MEDS: CLOPIDOGREL BISULFATE 75 MG TABLET (FP) PO SCH (09:58)
[2018-04-24] MEDS: metoPROLOL SUCCINATE 25 MG TAB.SR.24H (FP) PO SCH (09:58)
[2018-04-24] MEDS: LOSARTAN POTASSIUM 25 MG TABLET PO SCH (09:58)
[2018-04-24] MEDS: TORSEMIDE 20 MG TABLET (FP) PO SCH (09:58)
[2018-04-24] MEDS: PANTOPRAZOLE 40 MG TABLET (FP) PO SCH (09:58)
[2018-04-24] MEDS: FERROUS SO4 325 MG TABLET (FP) PO SCH (09:58)
[2018-04-24] MEDS: ASPIRIN COATED 81 MG TABLET.EC PO SCH (09:58)
[2018-04-24] MEDS ORDERED: ENOXAPARIN NA (PORCINE) 40 MG/0.4 ML DISP.SYRIN SQ SCH (10:00)
--- NOTE | 2018-04-24 10:43 | EKG ---
Test Reason : Blood Pressure : / mmHG Vent. Rate : 077 BPM Atrial Rate : 077 BPM P-R Int : 264 ms QRS Dur : 098 ms QT Int : 400 ms P-R-T Axes : 077 092 075 degrees QTc Int : 452 ms SINUS RHYTHM WITH 1ST DEGREE A-V BLOCK RIGHTWARD AXIS LOW VOLTAGE QRS INCOMPLETE RIGHT BUNDLE BRANCH BLOCK NONSPECIFIC ST ABNORMALITY ABNORMAL ECG Confirmed by Alejandro Padilla MD ([id number]) on 04/24/2018 10:43:02 AM Referred By: Confirmed By:Alejandro Padilla MD
[2018-04-24] MEDS ORDERED: INSULIN (NOVOLOG) ASPART 100 UNITS/ML 10ML VIAL ONE ×2 (13:36→13:38)
--- NOTE | 2018-04-24 15:10 | PN ---
Physical Exam: SUBJECTIVE: Patient seen and examined ; agitated; not really cooperative for physical exam. OBJECTIVE: Vital Signs Period Temp Pulse Resp BP Sys/Peter Pulse Ox Last 24 Hr 97.7 F-98.1 F 63-79 12-20 108-158/53-93 98-100 GENERAL: The patient is awake, alert, and fully oriented, morbidly obese. HEAD: Normal with no signs of trauma. EYES: right eye s/p corneal sx; eyes almost closed shut ; +nystamgus with poncho hallpike maneuver. NECK: Trachea midline, full range of motion, supple. LUNGS: decreased breath sounds; morbidly obese HEART: Regular rate and rhythm, S1, S2 without murmur, rub or gallop. ABDOMEN: Soft, nontender, nondistended, normoactive bowel sounds, no guarding, no rebound, no hepatosplenomegaly, no masses. EXTREMITIES: 2+ pulses, warm, well-perfused, b/l edema; transmetatarsal amputation of right foot ; left LE with stasis changes; NEUROLOGICAL: Cranial nerves II through XII grossly intact. Normal speech, gait not observed. PSYCH: Normal mood, normal affect. SKIN: Warm, dry, normal turgor, no rashes or lesions noted Laboratory Results - last 24 hr 04/23/18 04/23/18 04/23/18 17:06 17:06 17:06 WBC 7.7 RBC 5.09 Hgb 14.0 Hct 41.3 MCV 81.0 MCH 27.6 MCHC 34.0 RDW 16.4 H Plt Count 262 MPV 8.7 Absolute Neuts (auto) 5.3 Neutrophils % 69.3 Lymphocytes % 16.3 D Monocytes % 9.3 Eosinophils % 4.5 Basophils % 0.6 Nucleated RBC % 0 PT with INR INR PTT (Actin FS) Sodium 138 Potassium 3.9 Chloride 103 Carbon Dioxide 26 Anion Gap 9 BUN 44 H Creatinine 1.8 H Creat Clearance w eGFR 38.55 POC Glucometer Random Glucose 129 H Calcium 8.6 Phosphorus Magnesium Total Bilirubin 0.3 AST 18 ALT 26 Alkaline Phosphatase 88 Creatine Kinase 133 Troponin I 0.02 Total Protein 7.9 Albumin 3.7 Urine Color Urine Appearance Urine pH Ur Specific [place] Urine Protein Urine Glucose (UA) Urine Ketones Urine Blood Urine Nitrite Urine Bilirubin Urine Urobilinogen Ur Leukocyte Esterase Urine WBC (Auto) Urine RBC (Auto) Hyaline Casts Urine Mucus 04/23/18 04/23/18 04/23/18 17:06 19:35 19:38 WBC RBC Hgb Hct MCV MCH MCHC RDW Plt Count MPV Absolute Neuts (auto) Neutrophils % Lymphocytes % Monocytes % Eosinophils % Basophils % Nucleated RBC % PT with INR 12.00 INR 1.02 PTT (Actin FS) 27.4 Sodium Potassium Chloride Carbon Dioxide Anion Gap BUN Creatinine Creat Clearance w eGFR POC Glucometer 109 118 Random Glucose Calcium Phosphorus Magnesium Total Bilirubin AST ALT Alkaline Phosphatase Creatine Kinase Troponin I Total Protein Albumin Urine Color Urine Appearance Urine pH Ur Specific [place] Urine Protein Urine Glucose (UA) Urine Ketones Urine Blood Urine Nitrite Urine Bilirubin Urine Urobilinogen Ur Leukocyte Esterase Urine WBC (Auto) Urine RBC (Auto) Hyaline Casts Urine Mucus 04/23/18 04/24/18 04/24/18 19:42 06:00 06:00 WBC 7.6 RBC 4.67 Hgb 12.8 Hct 37.9 MCV 81.2 MCH 27.5 MCHC 33.9 RDW 16.9 H Plt Count 215 MPV 8.7 Absolute Neuts (auto) Neutrophils % Lymphocytes % Monocytes % Eosinophils % Basophils % Nucleated RBC % PT with INR INR PTT (Actin FS) Sodium 137 Potassium 3.5 Chloride 104 Carbon Dioxide 25 Anion Gap 8 BUN 41 H Creatinine 1.7 H Creat Clearance w eGFR 41.18 POC Glucometer Random Glucose 157 H Calcium 8.3 L Phosphorus 3.9 Magnesium 2.3 Total Bilirubin AST ALT Alkaline Phosphatase Creatine Kinase Troponin I 0.03 Total Protein Albumin Urine Color Urine Appearance Urine pH Ur Specific [place] Urine Protein Urine Glucose (UA) Urine Ketones Urine Blood Urine Nitrite Urine Bilirubin Urine Urobilinogen Ur Leukocyte Esterase Urine WBC (Auto) Urine RBC (Auto) Hyaline Casts Urine Mucus 04/24/18 04/24/18 04/24/18 06:50 08:07 10:41 WBC RBC Hgb Hct MCV MCH MCHC RDW Plt Count MPV Absolute Neuts (auto) Neutrophils % Lymphocytes % Monocytes % Eosinophils % Basophils % Nucleated RBC % PT with INR INR PTT (Actin FS) Sodium Potassium Chloride Carbon Dioxide Anion Gap BUN Creatinine Creat Clearance w eGFR POC Glucometer 167 229 Random Glucose Calcium Phosphorus Magnesium Total Bilirubin AST ALT Alkaline Phosphatase Creatine Kinase Troponin I Total Protein Albumin Urine Color Straw Urine Appearance Clear Urine pH 5.0 Ur Specific [place] 1.009 L Urine Protein 1+ H Urine Glucose (UA) 3+ H Urine Ketones Negative Urine Blood Negative Urine Nitrite Negative Urine Bilirubin Negative Urine Urobilinogen Negative Ur Leukocyte Esterase Negative Urine WBC (Auto) None Urine RBC (Auto) <1 Hyaline Casts 1 Urine Mucus Rare Active Medications Generic Name Dose Route Start Last Admin Trade Name Freq PRN Reason Stop Dose Admin Aspirin 81 mg 04/24/18 10:00 04/24/18 09:58 Ecotrin - PO 81 mg DAILY IGGY Administration Atorvastatin Calcium 40 mg 04/24/18 22:00 Lipitor - PO HS IGGY Clopidogrel Bisulfate 75 mg 04/24/18 10:00 04/24/18 09:58 Plavix - PO 75 mg DAILY IGGY Administration Enoxaparin Sodium 40 mg 04/24/18 10:00 04/24/18 09:58 Lovenox - SQ 40 mg DAILY IGGY Administration Ferrous Sulfate 325 mg 04/24/18 10:00 04/24/18 09:58 Feosol - PO 325 mg DAILY IGGY Administration Gabapentin 300 mg 04/24/18 15:15 Neurontin - PO TID IGGY Insulin Aspart 1 vial 04/24/18 07:00 04/24/18 12:43 Novolog Vial Sliding Scale - SQ 2 unit TIDAC [facility] Administration Protocol Losartan Potassium 25 mg 04/24/18 10:00 04/24/18 09:58 Cozaar - PO 25 mg DAILY IGGY Administration Meclizine HCl 25 mg 04/24/18 06:00 04/24/18 13:47 Antivert - PO 25 mg TID IGGY Administration Metoprolol Succinate 25 mg 04/24/18 10:00 04/24/18 09:58 Toprol Xl - PO 25 mg DAILY IGGY Administration Pantoprazole Sodium 40 mg 04/24/18 10:00 04/24/18 09:58 Protonix - PO 40 mg DAILY IGGY Administration Sodium Bicarbonate 650 mg 04/24/18 06:00 04/24/18 13:47 Sodium Bicarbonate - PO 650 mg TID IGGY Administration Torsemide 60 mg 04/24/18 10:00 04/24/18 09:58 Demadex - PO 60 mg DAILY IGYG Administration ASSESSMENT/PLAN: Patient is a 60 year old morbidly obese male with a significant past medical history of right foot wound s/p transmetatarsal amputation of right foot last year, diabetes mellitus type 2, CAD, diastolic CHF, hypertension and hyperlipidemia, presenting after an episode of dizziness after getting up from seated position. #Dizziness secondary to begnign positional vertigo -+poncho hallpike -attempt to Eply manuver; although difficult patient very obese; -prescribe standing meclizine for now; then prn if improves -PT eval -head CT negative for acute pathology #CAD -cont asa and plavix -arb -bb #diastolic CHF:not in acute exacerbation -cont torsemide #DM: -insulin ss -bgm #CKD: at baseline PT eval DT ppl: heparin sq GIppl: on protonix Disposition: pending PT; Visit type - Emergency Visit Emergency Visit: Yes ED Registration Date: 04/24/18 Care time: The patient presented to the Emergency Department on the above date and was hospitalized for further evaluation of their emergent condition. - New Patient This patient is new to me today: Yes Date on this admission: 04/24/18 - Critical Care Critical Care patient: No
[2018-04-24] MEDS ORDERED: GABAPENTIN 100 MG CAPSULE (FP) ONE (15:35)
[2018-04-24] MEDS: GABAPENTIN 300 MG CAPSULE (FP) PO SCH ×2 (15:43→22:57)
[2018-04-24 17:30] VITALS: BMI 42.0
--- NOTE | 2018-04-24 17:36 | PN ---
Teaching Attending Note Name of Resident: Shena Hyatt ATTENDING PHYSICIAN STATEMENT I saw and evaluated the patient. I reviewed the resident's note and discussed the case with the resident. I agree with the resident's findings and plan as documented with exceptions below. SUBJECTIVE: Patient seen and examined. Denies dizziness currently. reports just felt 'dizzy ' at home that started yesterday. Denies any spinning sensation. However not fullly co-operative with the interview. OBJECTIVE: Vital Signs Period Temp Pulse Resp BP Sys/Peter Pulse Ox Last 24 Hr 97.5 F-98.1 F 63-80 12-20 108-158/59-93 98-99 Intake & Output 04/21/18 04/22/18 04/23/18 04/24/18 23:59 23:59 23:59 23:59 Intake Total 500 390 Output Total 1270 Balance 500 -880 Weight 265 lb 276 lb 6.4 oz General: lying in bed in no acute distress, refuses to move or fully participate with the interview Chest: CTAB, no rales or wheezing Abdomen:Soft, obese, NT Extremities: no edema, Left above ankle amputation, bilateral feet swelling, excoriation dorsum of the right foot, warm well perfused, but unable to palpate DP pulses (?due to swelling), decreased pin prick sensation Home Medications Medication Instructions Recorded Insulin (Novolog) [Novolog Flexpen 0 units SQ TIDAC #0 pen 08/07/13 -] Aspirin Coated [Ecotrin -] 81 mg PO DAILY tablet.ec 04/30/15 Insulin (Novolog 70/30) [Novolog 60 units SQ BID 06/28/16 Mix 70/30 Flexpen -] Metoprolol Succinate [Toprol XL -] 25 mg PO DAILY #30 tab.sr 07/05/16 Pantoprazole Sodium [Protonix -] 40 mg PO DAILY #30 tab.ec 07/05/16 Torsemide [Demadex -] 60 mg PO DAILY 09/15/16 Liraglutide [Victoza -] 1.2 mg SQ BID 06/07/17 Gentamicin 0.1% Ointment 1 applic TP DAILY #30 grams 12/20/17 [Garamycin 0.1% Ointment -] Ferrous Sulfate 325 mg PO DAILY 02/28/18 Losartan Potassium 25 mg PO DAILY 02/28/18 Sodium Bicarbonate - 650 mg PO TID 02/28/18 Atorvastatin Ca [Lipitor] 40 mg PO HS 04/23/18 Clopidogrel Bisulfate [Plavix] 75 mg PO DAILY 04/23/18 Active Medications Aspirin (Ecotrin -) 81 mg PO DAILY [facility] Last Admin: 04/24/18 09:58 Dose: 81 mg Atorvastatin Calcium (Lipitor -) 40 mg PO HS [facility] Clopidogrel Bisulfate (Plavix -) 75 mg PO DAILY [facility] Last Admin: 04/24/18 09:58 Dose: 75 mg Ferrous Sulfate (Feosol -) 325 mg PO DAILY [facility] Last Admin: 04/24/18 09:58 Dose: 325 mg Gabapentin (Neurontin -) 300 mg PO TID [facility] Last Admin: 04/24/18 15:43 Dose: 300 mg Heparin Sodium (Porcine) (Heparin -) 5,000 unit SQ TID [facility] Insulin Aspart (Novolog Vial Sliding Scale -) 1 vial SQ TIDAC [facility]; Protocol Last Admin: 04/24/18 12:43 Dose: 2 unit Losartan Potassium (Cozaar -) 25 mg PO DAILY [facility] Last Admin: 04/24/18 09:58 Dose: 25 mg Meclizine HCl (Antivert -) 25 mg PO TID [facility] Last Admin: 04/24/18 13:47 Dose: 25 mg Metoprolol Succinate (Toprol Xl -) 25 mg PO DAILY [facility] Last Admin: 04/24/18 09:58 Dose: 25 mg Pantoprazole Sodium (Protonix -) 40 mg PO DAILY [facility] Last Admin: 04/24/18 09:58 Dose: 40 mg Sodium Bicarbonate (Sodium Bicarbonate -) 650 mg PO TID [facility] Last Admin: 04/24/18 13:47 Dose: 650 mg Torsemide (Demadex -) 60 mg PO DAILY [facility] Last Admin: 04/24/18 09:58 Dose: 60 mg Laboratory Results - last 24 hr 04/23/18 04/23/18 04/23/18 17:06 17:06 17:06 WBC RBC Hgb Hct MCV MCH MCHC RDW Plt Count MPV PT with INR 12.00 INR 1.02 PTT (Actin FS) 27.4 Sodium 138 Potassium 3.9 Chloride 103 Carbon Dioxide 26 Anion Gap 9 BUN 44 H Creatinine 1.8 H Creat Clearance w eGFR 38.55 POC Glucometer Random Glucose 129 H Calcium 8.6 Phosphorus Magnesium Total Bilirubin 0.3 AST 18 ALT 26 Alkaline Phosphatase 88 Creatine Kinase 133 Troponin I 0.02 Total Protein 7.9 Albumin 3.7 Urine Color Urine Appearance Urine pH Ur Specific [place] Urine Protein Urine Glucose (UA) Urine Ketones Urine Blood Urine Nitrite Urine Bilirubin Urine Urobilinogen Ur Leukocyte Esterase Urine WBC (Auto) Urine RBC (Auto) Hyaline Casts Urine Mucus 04/23/18 04/23/18 04/23/18 19:35 19:38 19:42 WBC RBC Hgb Hct MCV MCH MCHC RDW Plt Count MPV PT with INR INR PTT (Actin FS) Sodium Potassium Chloride Carbon Dioxide Anion Gap BUN Creatinine Creat Clearance w eGFR POC Glucometer 109 118 Random Glucose Calcium Phosphorus Magnesium Total Bilirubin AST ALT Alkaline Phosphatase Creatine Kinase Troponin I 0.03 Total Protein Albumin Urine Color Urine Appearance Urine pH Ur Specific [place] Urine Protein Urine Glucose (UA) Urine Ketones Urine Blood Urine Nitrite Urine Bilirubin Urine Urobilinogen Ur Leukocyte Esterase Urine WBC (Auto) Urine RBC (Auto) Hyaline Casts Urine Mucus 04/24/18 04/24/18 04/24/18 06:00 06:00 06:50 WBC 7.6 RBC 4.67 Hgb 12.8 Hct 37.9 MCV 81.2 MCH 27.5 MCHC 33.9 RDW 16.9 H Plt Count 215 MPV 8.7 PT with INR INR PTT (Actin FS) Sodium 137 Potassium 3.5 Chloride 104 Carbon Dioxide 25 Anion Gap 8 BUN 41 H Creatinine 1.7 H Creat Clearance w eGFR 41.18 POC Glucometer 167 Random Glucose 157 H Calcium 8.3 L Phosphorus 3.9 Magnesium 2.3 Total Bilirubin AST ALT Alkaline Phosphatase Creatine Kinase Troponin I Total Protein Albumin Urine Color Urine Appearance Urine pH Ur Specific [place] Urine Protein Urine Glucose (UA) Urine Ketones Urine Blood Urine Nitrite Urine Bilirubin Urine Urobilinogen Ur Leukocyte Esterase Urine WBC (Auto) Urine RBC (Auto) Hyaline Casts Urine Mucus 04/24/18 04/24/18 08:07 10:41 WBC RBC Hgb Hct MCV MCH MCHC RDW Plt Count MPV PT with INR INR PTT (Actin FS) Sodium Potassium Chloride Carbon Dioxide Anion Gap BUN Creatinine Creat Clearance w eGFR POC Glucometer 229 Random Glucose Calcium Phosphorus Magnesium Total Bilirubin AST ALT Alkaline Phosphatase Creatine Kinase Troponin I Total Protein Albumin Urine Color Straw Urine Appearance Clear Urine pH 5.0 Ur Specific [place] 1.009 L Urine Protein 1+ H Urine Glucose (UA) 3+ H Urine Ketones Negative Urine Blood Negative Urine Nitrite Negative Urine Bilirubin Negative Urine Urobilinogen Negative Ur Leukocyte Esterase Negative Urine WBC (Auto) None Urine RBC (Auto) <1 Hyaline Casts [address] head - small amount of fluid in mastoid air cells, no acute process EKG 1st degree AV block ASSESSMENT AND PLAN: 63 yom with PMHx of HTN, HLD, CAD s/p NSTEMI s/p stents, PVD, IDDM with neuropathy, CKD, CHF, left foot amputation, severe systolic dysfunction on Echo in 09/2016, h/o sinus pause in 2017 when was transferred for PPM?, admitted with dizziness -Dizziness, BPPV vs from severe diabetic neuropathy, r/o arrhythmia given h/o severe systolic dysfunction/sinus pausein 2016 when was transferred for possible PPM -Severe systolic dysfunction on 2D echo 09/2016 -CAD s/p NSTEMI/PCI -h/o sinus pause in 2016, transferred to [place] for PPM? -IDDM -Diabetic neuropathy -Left foot amputation -CKD stage III (last cr around 2) -PVD Plan: Patient inconsistent in history, reported spinning sensation to another provider which he currently denies. Reported leg weakness, legs 'gave out', which he currently denies, states was just 'dizzy'. Trial with meclizine. Will place on neurontin, follow up neurology input. Declined MRI, will hold off unless new concerns Charts reviewed, also has h/o severe systolic dysfunction on 2D echo in 2016, also had sinus pause then when was transferred to [facility] for ?PPM. Currently in 1st degree AV block. Continue telemetry. Cardiology consult Dr. Thompson. repeat 2D echo. Continue torsemide for now. Orthostatics negative. Continue ASA//plavix/statin/metoprolol/ARB Renal function stable, monitor. PT eval Dispo in 24 hours if no further symptoms pending above w/u and cardiology/ neurology input Plan discussed with patient in detail, all questions answered.
[2018-04-24] MEDS ORDERED: PT OWN MED DRAWER 7, Y5N ONE (22:55)
[2018-04-24] MEDS: HEPARIN NA (PORCINE) 5,000 UNITS/ML 1ML VIAL SQ SCH (22:57)
[2018-04-24] MEDS: ATORVASTATIN CA 40 MG TABLET (FP) PO SCH (22:57)
[2018-04-25] MEDS ORDERED: PT OWN MED DRAWER 7, Y5N ONE (01:12)
[2018-04-25] MEDS: HEPARIN NA (PORCINE) 5,000 UNITS/ML 1ML VIAL SQ SCH ×3 (06:23→22:26)
[2018-04-25] MEDS: SODIUM BICARBONATE 650 MG TABLET PO SCH ×3 (06:23→22:27)
[2018-04-25] MEDS: GABAPENTIN 300 MG CAPSULE (FP) PO SCH ×3 (06:23→22:27)
[2018-04-25] MEDS: MECLIZINE HCL 25 MG TABLET (FP) PO SCH ×3 (06:23→22:27)
[2018-04-25] MEDS: INSULIN SLIDING SCALE (NOVOLOG) 1 VIAL SQ SCH ×3 (06:24→17:47)
[2018-04-25 07:32] LABS: ANION GAP 9 MMOL/L (8-16); BLOOD UREA NITROGEN 45 mg/dL (7-18); CALCIUM 8.8 mg/dL (8.5-10.1); CHLORIDE 101 mmol/L (98-107); CO2 25 mmol/L (21-32); CREATININE 1.8 mg/dL (0.55-1.3); GLUCOSE,RANDOM 229 mg/dL (74-106); MAGNESIUM 2.7 mg/dL (1.8-2.4); PHOSPHOROUS 4.7 mg/dL (2.5-4.9); POTASSIUM 3.8 mmol/L (3.5-5.1); SODIUM 135 mmol/L (136-145)
[2018-04-25] MEDS ORDERED: INSULIN SLIDING SCALE (NOVOLOG) 1 VIAL SQ ONE (08:02)
[2018-04-25] MEDS: ASPIRIN COATED 81 MG TABLET.EC PO SCH (10:02)
[2018-04-25] MEDS: PANTOPRAZOLE 40 MG TABLET (FP) PO SCH (10:02)
[2018-04-25] MEDS: FERROUS SO4 325 MG TABLET (FP) PO SCH (10:02)
[2018-04-25] MEDS: metoPROLOL SUCCINATE 25 MG TAB.SR.24H (FP) PO SCH (10:02)
[2018-04-25] MEDS: CLOPIDOGREL BISULFATE 75 MG TABLET (FP) PO SCH (10:02)
[2018-04-25] MEDS: TORSEMIDE 20 MG TABLET (FP) PO SCH (10:02)
[2018-04-25] MEDS: LOSARTAN POTASSIUM 25 MG TABLET PO SCH (10:02)
--- NOTE | 2018-04-25 10:02 | CONSULT ---
Consult - text type - Consultation Consultation Note: NEUROLOGY CONSULT APPRECIATED: Events reviewed and discussed with staff and RESHMA Faye. Cardiology consultation appreciated. 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 Maintained on ASA, Insulin, metoprolol, pantoprazole, torsemide, liraglutide, ferrous sulfate, losartan, atorvastatin, plavix Here after new onset frontal headache with intermittent peroids of "lightheadness" like a "rocking boat" requiring him to grab onto [place] and rails x 2 days. He reports it is positional in nature when moving from sitting to standing position without associated N/V/P/P or kinesiophobia. He reports he normally ambulates with use of a cane and AFO brace for R foot. Review of systems significant for approximately one month of L knee pain and subsequent radiation into low back, diagnosed as "sciatica" Head CT (reviewed): noted with scattered microvascular changes and calcifications of arteries and possible, old left Parietal cortical infarct. TARA: BP's 110-150s/60-90s unchanged sitting to supine. Obese. Cor reg. No bruit. Neck supple. Neg SLR. Open blisters to L forefoot. S/P R foot amputation. NEURO: Mentation/Speech: [facility]. April 25, 2018. TRUMP recall 04/08 CN II-CN XII: EOM intact and full paiz appreciated. No facial. Gag ok. Motor: No drift. 4-/5 PF on the L. Reflexes 1+ throughout, AJ's absent. L toe downgoing. Coordination: No FTN dystaxia. Sensation: Decreased vibration to shins B/L. Romberg +/- Gait: Unsteady, variable. Impression: 1. 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 Possible left parietal cortical infarct (age indeterminate) 2. New onset Headache (with vertigo and ataxia- this could represent vertebrobasilar migraine) 3. Peripheral Neuropathy (c/w) diabetes Suggest: Orthostatic BP's Order MRI/MRA of brain (C-) Check ESR, CRP to R/o Temporal arteritis. Symptomatic Rx for headache for now. Order Carotid duplex doppler Agree with cardio and telemetry. Consider ENT consultation PT eval for gait training with walker Thank you very much, Ramy Womack MD
--- NOTE | 2018-04-25 11:14 | CON.CARD ---
Cardiology Consult (text) - Consultation Consultation Note: 63 M h/o CAD, CHF, HTN, HLD DM, PAD p/w dizziness, feels unsteady. Day prior to admission got up to sit from lying down and felt woozy, went to lie down again and then felt like anytime during the day after that where he went from lying down to sitting up or sitting to standing he felt unsteady. also felt unsteady and walking which is not usual for him, has had to use cane doesn't usually, and is complaining of worse back pain. No syncope, chest pain, falls, edema. Sees Dr. Thompson for cardio. PMH/PSHx: per hpi, H/O osteomyelitis, toe amputation, corneal transplants social hx: ex tob fam hx: Acute myocardial infarction Father of MA in 70s. Mother of MA at 69eg ros: per hpi; no nvd, vogel, vision changes, gib, hematuria, dysuria, cough Ambulatory Orders Ambulatory Orders Insulin (Novolog) [Novolog Flexpen -] 0 units SQ TIDAC #0 pen 08/07/13 Aspirin Coated [Ecotrin -] 81 mg PO DAILY tablet.ec 04/30/15 Insulin (Novolog 70/30) [Novolog Mix 70/30 Flexpen -] 60 units SQ BID 06/28/16 Metoprolol Succinate [Toprol XL -] 25 mg PO DAILY #30 tab.sr 07/05/16 Pantoprazole Sodium [Protonix -] 40 mg PO DAILY #30 tab.ec 07/05/16 Torsemide [Demadex -] 60 mg PO DAILY 09/15/16 Liraglutide [Victoza -] 1.2 mg SQ BID 06/07/17 Gentamicin 0.1% Ointment [Garamycin 0.1% Ointment -] 1 applic TP DAILY #30 grams 12/20/17 Ferrous Sulfate 325 mg PO DAILY 02/28/18 Losartan Potassium 25 mg PO DAILY 02/28/18 Sodium Bicarbonate - 650 mg PO TID 02/28/18 Atorvastatin Ca [Lipitor] 40 mg PO HS 04/23/18 Clopidogrel Bisulfate [Plavix] 75 mg PO DAILY 04/23/18 Vital Signs Period Temp Pulse Resp BP Sys/Peter Pulse Ox Last 24 Hr 97.5 F-98.4 F 61-81 16-20 126-156/59-84 98-99 NAD, calm jvd tds, neck supple CTAB, nl effort RRR nl s1, s2 no mrg + bs soft nt nd obese ext with trace edema bl venous stasis changes s/p LE amputation diminished LE pulses aaox3 no jaundice, diaphoresis Laboratory Last Values WBC 7.6 K/mm3 (4.0-10.0) 04/24/18 06:00 RBC 4.67 M/mm3 (4.00-5.60) 04/24/18 06:00 Hgb 12.8 GM/dL (11.7-16.9) 04/24/18 06:00 Hct 37.9 % (35.4-49) 04/24/18 06:00 MCV 81.2 fl (80-96) 04/24/18 06:00 MCH 27.5 pg (25.7-33.7) 04/24/18 06:00 MCHC 33.9 g/dl (32.0-35.9) 04/24/18 06:00 RDW 16.9 % (11.9-15.9) H 04/24/18 06:00 Plt Count 215 K/MM3 (134-434) 04/24/18 06:00 MPV 8.7 fl (7.5-11.1) 04/24/18 06:00 Absolute Neuts (auto) 5.3 K/mm3 (1.5-8.0) 04/23/18 17:06 Neutrophils % 69.3 % (42.8-82.8) 04/23/18 17:06 Lymphocytes % 16.3 % (8-40) D 04/23/18 17:06 Monocytes % 9.3 % (3.8-10.2) 04/23/18 17:06 Eosinophils % 4.5 % (0-4.5) 04/23/18 17:06 Basophils % 0.6 % (0-2.0) 04/23/18 17:06 Nucleated RBC % 0 % (0-0) 04/23/18 17:06 PT with INR 12.00 SEC (9.7-13.0) 04/23/18 17:06 INR 1.02 (0.83-1.09) 04/23/18 17:06 PTT (Actin FS) 27.4 SECONDS (25.2-36.5) 04/23/18 17:06 Sodium 135 mmol/L (136-145) L 04/25/18 06:00 Potassium 3.8 mmol/L (3.5-5.1) 04/25/18 06:00 Chloride 101 mmol/L (98-107) 04/25/18 06:00 Carbon Dioxide 25 mmol/L (21-32) 04/25/18 06:00 Anion Gap 9 MMOL/L (8-16) 04/25/18 06:00 BUN 45 mg/dL (7-18) H 04/25/18 06:00 Creatinine 1.8 mg/dL (0.55-1.3) H 04/25/18 06:00 Creat Clearance w eGFR 38.55 (>60) 04/25/18 06:00 POC Glucometer 220 UNITS (80-120) 04/25/18 06:22 Random Glucose 229 mg/dL (74-106) H 04/25/18 06:00 Calcium 8.8 mg/dL (8.5-10.1) 04/25/18 06:00 Phosphorus 4.7 mg/dL (2.5-4.9) 04/25/18 06:00 Magnesium 2.7 mg/dL (1.8-2.4) H 04/25/18 06:00 Total Bilirubin 0.3 mg/dL (0.2-1) 04/23/18 17:06 AST 18 U/L (15-37) 04/23/18 17:06 ALT 26 U/L (13-61) 04/23/18 17:06 Alkaline Phosphatase 88 U/L (45-117) 04/23/18 17:06 Creatine Kinase 133 U/L (26-308) 04/23/18 17:06 Troponin I 0.03 ng/ml (0.00-0.05) 04/23/18 19:42 C-Reactive Protein 2.4 MG/DL (0.00-0.3) H 04/25/18 06:00 Total Protein 7.9 g/dl (6.4-8.2) 04/23/18 17:06 Albumin 3.7 g/dl (3.4-5.0) 04/23/18 17:06 Urine Color Straw 04/24/18 08:07 Urine Appearance Clear 04/24/18 08:07 Urine pH 5.0 (5.0-8.0) 04/24/18 08:07 Ur Specific [place] 1.009 (1.010-1.035) L 04/24/18 08:07 Urine Protein 1+ (NEGATIVE) H 04/24/18 08:07 Urine Glucose (UA) 3+ (NEGATIVE) H 04/24/18 08:07 Urine Ketones Negative (NEGATIVE) 04/24/18 08:07 Urine Blood Negative (NEGATIVE) 04/24/18 08:07 Urine Nitrite Negative (NEGATIVE) 04/24/18 08:07 Urine Bilirubin Negative (<2.0 mg/dL) 04/24/18 08:07 Urine Urobilinogen Negative mg/dL (0.2-1.0) 04/24/18 08:07 Ur Leukocyte Esterase Negative (NEGATIVE) 04/24/18 08:07 Urine WBC (Auto) None /hpf (3-5) 04/24/18 08:07 Urine RBC (Auto) <1 /hpf (0-3) 04/24/18 08:07 Hyaline Casts 1 /lpf 04/24/18 08:07 Urine Mucus Rare 04/24/18 08:07 ecg 09/16/16: sr, 1st avb, rbbb(old), twi v1-v4 tele: sr currently, approx 7 second pause overnight cxr: mild chf 06/2016 echo here: tds. Nl lv size/fn. RV not well seen. nl valves. 04/2015 echo [facility]: tds. nl lv/rv. 1+ mr 04/2015 dipyridamole stress SJR: stach with RBBB, no further ekg changes. mod fixed apical defect with partial reversibility --> mod apical infarct with small area of periinfarct ischemia. inferobasal defect thought to be 2/2 attenuation. mild global HK, apical AK. EF 46% [facility] 11/2016 patent RPDA stent, planned stage LOS to OM1, LAD stable compared to prior [facility] 09/2016 LOS to RPDA, EDP 30 L/RHC 09/2016 wedge 45, CI 1.7, 80-90% pLAD, 90-95% mid LAD(small vessel), 70-80 % 1st septal, subtotal OM1, subtotal RPDA, EF 25% echo 03/2017 tds, definity severe hypok of basal to mid inferolateral wall, mod hypok of inf wall, mild hypok of mid lateral wall, basal lateral wall not well seen, EF 40-45%, mildly dilated LA a/p: 63 yo with h/o HTN, HL, chronic systolic chf, CAD setting of sepsis/wound infection, IDDM, followed by dr christie for DM neuropathy and wounds, PAD s/ p LE stent and rt forefoot amputation, here with dizziness Dizziness - history consistent with orthostatic hypotension, while admitted has had episodes of dizziness on standing a few times - check orthostatics - also reported history of room spinning, denies now, was started on meclizine - neuro consulted - echo pending - no events on tele - reportedly prior hx of 7 second pause on tele and consideration of ppm in 2016, ppm was not done, per patient no history of syncope or dizziness prior to current symptoms - arrhythmia less likely etiology here - PT eval CAD - prior history of medically managed nstemi 2015 (peak troponin 4) in setting of sepsis/wound infection. at that time cath was deferred due to active underlying infection - s/p cath 09/22 with 3VD high risk CABG - multi vessel PCI with LOS to RPDA 2016, stage PCI of OM1 11/2016, LAD PCI deferred due to risk of procedure - on aspirin, plavix statin Chronic systolic HF - EF 40-45% 03/2017 with definity echo - on torsemide, metoprolol, lisinopril - appears euvolemic PAD s/p LE stent and rt forefoot amputation - con't asa, statin HTN -stable HL - cont statin ckd/sulema: -cr stable, bl low 2's
--- NOTE | 2018-04-25 14:57 | PN ---
Teaching Attending Note Name of Resident: Shena Hyatt ATTENDING PHYSICIAN STATEMENT I saw and evaluated the patient. I reviewed the resident's note and discussed the case with the resident. I agree with the resident's findings and plan as documented. SUBJECTIVE: Mr Duarte says he is still feeling weak and unsteady. Denies cp, sob, n/v. OBJECTIVE: Last Vital Signs Temp Pulse Resp BP Pulse Ox 36.4 C 65 18 132/79 98 04/25/18 14:21 04/25/18 14:21 04/25/18 14:21 04/25/18 14:21 04/25/18 08:00 Gen: obese, nad Pulm: ctab w/o w/r/r CV: rrr w/o m/r/g Abd: +bs, s/nt/nd Ext: R BKA, no c/c/e CBC, BMP 04/24/18 06:00 04/25/18 06:00 ASSESSMENT AND PLAN: Problem List - Problems (1) Vertigo Assessment/Plan: -continue meclizine -patient states no longer with dizziness but with weakness -appreciate neurology assistance Code(s): R42 - DIZZINESS AND GIDDINESS (2) Diabetes mellitus Assessment/Plan: -continue diabetic diet and SSI Code(s): E11.9 - TYPE 2 DIABETES MELLITUS WITHOUT COMPLICATIONS Qualifiers: Diabetes mellitus type: type 2 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 transplanted heart: redding heart Associated angina: without angina Qualified Code(s): I25.10 - Atherosclerotic heart disease of [place] coronary artery without angina pectoris (4) CKD (chronic kidney disease) stage 3, GFR 30-59 ml/min Assessment/Plan: -at baseline Code(s): N18.3 - CHRONIC KIDNEY DISEASE, STAGE 3 (MODERATE) (5) Hyperlipidemia Assessment/Plan: -continue statin Code(s): E78.5 - HYPERLIPIDEMIA, UNSPECIFIED Qualifiers: Hyperlipidemia type: unspecified Qualified Code(s): E78.5 - Hyperlipidemia , unspecified (6) Hypertension Assessment/Plan: -monitor --may need to adjust if uncontrolled Code(s): I10 - ESSENTIAL (PRIMARY) HYPERTENSION Qualifiers: Hypertension type: essential hypertension Qualified Code(s): I10 - Essential (primary) hypertension (7) PVD (peripheral vascular disease) Assessment/Plan: -continue aspirin and plavix Code(s): I73.9 - PERIPHERAL VASCULAR DISEASE, UNSPECIFIED (8) CHF (congestive heart failure) Assessment/Plan: -continue current management Code(s): I50.9 - HEART FAILURE, UNSPECIFIED Qualifiers: Heart failure type: systolic Heart failure chronicity: chronic Qualified Code(s): I50.22 - Chronic systolic (congestive) heart failure
--- NOTE | 2018-04-25 15:10 | ECHO ---
Name: ORQUIDEAHENRIQUEColumbaRONN R Exam:Adult Echocardiogram Study Date: 04/25/2018 10:41 AM Age: 63 yrs Reason For Study: LV Function Height: 68 in Weight: 276 lb BSA: 2.3 m2 MMode/2D Measurements & Calculations IVSd: 0.93 cm Ao root diam: 3.0 cm LVIDd: 5.7 cm LA dimension: 4.1 cm LVIDs: 3.8 cm LVPWd: 0.80 cm EDV(Teich): 157.9 ml LVOT diam: 2.2 cm ESV(Teich): 62.2 ml TAPSE: 2.4 cm Doppler Measurements & Calculations MV E max gilbert: 83.9 cm/sec Ao V2 max: 129.5 cm/sec MV A max gilbert: 60.7 cm/sec Ao max P.7 mmHg MV E/A: 1.4 Ao V2 mean: 98.5 cm/sec MV dec time: 0.18 sec Ao mean P.1 mmHg Ao V2 VTI: 26.4 cm THOMAS(I,D): 2.4 cm2 THOMAS(V,D): 2.1 cm2 LV V1 max P.1 mmHg MR max gilbert: 369.6 cm/sec LV V1 mean P.2 mmHg MR max P.8 mmHg LV V1 max: 72.7 cm/sec LV V1 mean: 50.6 cm/sec LV V1 VTI: 16.2 cm SV(LVOT): 62.0 ml Med Peak E' Gilbert: 5.1 cm/sec Med E/e': 16.6 Lat Peak E' Gilbert: 6.5 cm/sec Lat E/e': 12.9 Procedure The study was technically difficult with many images being suboptimal in quality. Left Ventricle The left ventricle is mildly dilated. The left ventricular ejection fraction is normal. Left Ventricu lar Filling pattern is normal for age. Regional wall motion abnormalities cannot be excluded due to limit ed visualization. Right Ventricle The right ventricle is not well visualized. Atria The left atrium is mildly dilated. The right atrium is mildly dilated. Mitral Valve The mitral valve is not well visualized. There is no mitral valve stenosis. There is mild mitral regurgitation. Tricuspid Valve The tricuspid valve is not well visualized. There is no tricuspid stenosis. There was insufficient TR detected to calculate RV systolic pressure. Aortic Valve The aortic valve is not well visualized. No hemodynamically significant valvular aortic stenosis. No aortic regurgitation is present. Pulmonic Valve The pulmonic valve is not well visualized. Great Vessels The aortic root is normal size. Pericardium/Pleura There is no pericardial effusion. Interpretation Summary The study was technically difficult with many images being suboptimal in quality. The left ventricle is mildly dilated. The left ventricular ejection fraction is normal. Regional wall motion abnormalities cannot be excluded due to limited visualization. The left atrium is mildly dilated. The right atrium is mildly dilated. Left Ventricular Filling pattern is normal for age. There is mild mitral regurgitation. There was insufficient TR detected to calculate RV systolic pressure. MD David De Leon 04/25/2018 03:10 PM
--- NOTE | 2018-04-25 15:59 | PN ---
Physical Exam: SUBJECTIVE: Patient seen and examined; states he "felt weird " standing on both legs yesterday . States he "doesn't know if he felt unstable or not". He denies dizziness, LOZANO, cp, sob, room spinning. OBJECTIVE: Vital Signs Period Temp Pulse Resp BP Sys/Peter Pulse Ox Last 24 Hr 97.5 F-98.4 F 61-81 16-20 126-156/59-84 98-99 GENERAL: The patient is awake, alert, and fully oriented, morbidly obese LUNGS: decreased Breath sounds equal, clear to auscultation bilaterally, no wheezes, no crackles, no accessory muscle use. HEART: Regular rate and rhythm, S1, S2 without murmur, rub or gallop. ABDOMEN: Soft, nontender, nondistended, normoactive bowel sounds, no guarding, no rebound, no hepatosplenomegaly, no masses. EXTREMITIES: 2+ pulses, warm, well-perfused, no edema. NEUROLOGICAL: decreased sensation of b/l feet' plantar aspects Laboratory Results - last 24 hr 04/24/18 04/25/18 04/25/18 17:36 06:00 06:22 Sodium 135 L Potassium 3.8 Chloride 101 Carbon Dioxide 25 Anion Gap 9 BUN 45 H Creatinine 1.8 H Creat Clearance w eGFR 38.55 POC Glucometer 227 220 Random Glucose 229 H Calcium 8.8 Phosphorus 4.7 Magnesium 2.7 H C-Reactive Protein 2.4 H 04/25/18 11:58 Sodium Potassium Chloride Carbon Dioxide Anion Gap BUN Creatinine Creat Clearance w eGFR POC Glucometer 316 Random Glucose Calcium Phosphorus Magnesium C-Reactive Protein Active Medications Generic Name Dose Route Start Last Admin Trade Name Isabella PRN Reason Stop Dose Admin Aspirin 81 mg 04/24/18 10:00 04/25/18 10:02 Ecotrin - PO 81 mg DAILY IGGY Administration Atorvastatin Calcium 40 mg 04/24/18 22:00 04/24/18 22:57 Lipitor - PO 40 mg HS IGGY Administration Clopidogrel Bisulfate 75 mg 04/24/18 10:00 04/25/18 10:02 Plavix - PO 75 mg DAILY IGGY Administration Ferrous Sulfate 325 mg 04/24/18 10:00 04/25/18 10:02 Feosol - PO 325 mg DAILY IGGY Administration Gabapentin 300 mg 04/24/18 15:15 04/25/18 14:21 Neurontin - PO 300 mg TID IGGY Administration Heparin Sodium (Porcine) 5,000 unit 04/24/18 22:00 04/25/18 14:21 Heparin - SQ 5,000 unit TID IGGY Administration Insulin Aspart 1 vial 04/24/18 07:00 04/25/18 12:04 Novolog Vial Sliding Scale - SQ 6 unit TIDAC IGGY Administration Protocol Losartan Potassium 25 mg 04/24/18 10:00 04/25/18 10:02 Cozaar - PO 25 mg DAILY IGGY Administration Meclizine HCl 25 mg 04/24/18 06:00 04/25/18 14:21 Antivert - PO 25 mg TID IGGY Administration Metoprolol Succinate 25 mg 04/24/18 10:00 04/25/18 10:02 Toprol Xl - PO 25 mg DAILY IGGY Administration Pantoprazole Sodium 40 mg 04/24/18 10:00 04/25/18 10:02 Protonix - PO 40 mg DAILY IGGY Administration Sodium Bicarbonate 650 mg 04/24/18 06:00 04/25/18 15:12 Sodium Bicarbonate - PO 650 mg TID IGGY Administration Torsemide 60 mg 04/24/18 10:00 04/25/18 10:02 Demadex - PO 60 mg DAILY IGGY Administration ASSESSMENT/PLAN: Patient is a 60 year old morbidly obese male with a significant past medical history of right foot wound s/p transmetatarsal amputation of right foot last year, diabetes mellitus type 2, CAD, diastolic CHF, hypertension and hyperlipidemia, presenting after an episode of dizziness after getting up from seated position. #Dizziness(patient history of events keeps changing) -poncho hallpike on initial exam + -prescribe standing meclizine for now; no events since -head CT negative for acute pathology -seen by cardiology ; no sign of arrhythmia -seen by neuro; new onset headache -PT eval #peripheral neuropathy secondary -started on gabapentin #CAD -cont asa and plavix -arb -bb #diastolic CHF:not in acute exacerbation -cont torsemide #DM: -insulin ss -bgm #CKD: at baseline PT eval DT ppl: heparin sq GIppl: on protonix Disposition: pending PT; plan for dc in am Visit type - Emergency Visit Emergency Visit: Yes ED Registration Date: 04/24/18 Care time: The patient presented to the Emergency Department on the above date and was hospitalized for further evaluation of their emergent condition. - New Patient This patient is new to me today: No - Critical Care Critical Care patient: No
[2018-04-25] MEDS: ATORVASTATIN CA 40 MG TABLET (FP) PO SCH (22:27)
[2018-04-26] MEDS: GABAPENTIN 300 MG CAPSULE (FP) PO SCH ×3 (06:32→21:22)
[2018-04-26] MEDS: INSULIN SLIDING SCALE (NOVOLOG) 1 VIAL SQ SCH ×3 (06:32→18:10)
[2018-04-26] MEDS: HEPARIN NA (PORCINE) 5,000 UNITS/ML 1ML VIAL SQ SCH ×3 (06:32→21:22)
[2018-04-26] MEDS: MECLIZINE HCL 25 MG TABLET (FP) PO SCH ×3 (06:32→21:22)
[2018-04-26] MEDS: SODIUM BICARBONATE 650 MG TABLET PO SCH ×3 (06:33→21:22)
[2018-04-26 08:41] LABS: ANION GAP 8 MMOL/L (8-16); BLOOD UREA NITROGEN 45 mg/dL (7-18); CALCIUM 8.6 mg/dL (8.5-10.1); CHLORIDE 99 mmol/L (98-107); CO2 28 mmol/L (21-32); CREATININE 1.9 mg/dL (0.55-1.3); GLUCOSE,RANDOM 269 mg/dL (74-106); MAGNESIUM 2.4 mg/dL (1.8-2.4); PHOSPHOROUS 3.9 mg/dL (2.5-4.9); POTASSIUM 3.6 mmol/L (3.5-5.1); SODIUM 135 mmol/L (136-145)
[2018-04-26] MEDS: CLOPIDOGREL BISULFATE 75 MG TABLET (FP) PO SCH (09:26)
[2018-04-26] MEDS: ASPIRIN COATED 81 MG TABLET.EC PO SCH (09:26)
[2018-04-26] MEDS: metoPROLOL SUCCINATE 25 MG TAB.SR.24H (FP) PO SCH (09:26)
[2018-04-26] MEDS: TORSEMIDE 20 MG TABLET (FP) PO SCH (09:26)
[2018-04-26] MEDS: LOSARTAN POTASSIUM 25 MG TABLET PO SCH (09:26)
[2018-04-26] MEDS: PANTOPRAZOLE 40 MG TABLET (FP) PO SCH (09:26)
[2018-04-26] MEDS: FERROUS SO4 325 MG TABLET (FP) PO SCH (09:26)
--- NOTE | 2018-04-26 10:31 | PN ---
Progress Note (short form) - Note Progress Note: S: no cp sob palps dizzy; still with leg weakness Current Medications Generic Name Dose Route Start Last Admin Trade Name Isabella PRN Reason Stop Dose Admin Aspirin 81 mg 04/24/18 10:00 04/26/18 09:26 Ecotrin - PO 81 mg DAILY IGGY Administration Atorvastatin Calcium 40 mg 04/24/18 22:00 04/25/18 22:27 Lipitor - PO 40 mg HS IGGY Administration Clopidogrel Bisulfate 75 mg 04/24/18 10:00 04/26/18 09:26 Plavix - PO 75 mg DAILY IGGY Administration Ferrous Sulfate 325 mg 04/24/18 10:00 04/26/18 09:26 Feosol - PO 325 mg DAILY IGGY Administration Gabapentin 300 mg 04/24/18 15:15 04/26/18 06:32 Neurontin - PO 300 mg TID IGGY Administration Heparin Sodium (Porcine) 5,000 unit 04/24/18 22:00 04/26/18 06:32 Heparin - SQ 5,000 unit TID IGGY Administration Insulin Aspart 1 vial 04/24/18 07:00 04/26/18 06:32 Novolog Vial Sliding Scale - SQ 4 unit TIDAC IGGY Administration Protocol Losartan Potassium 25 mg 04/24/18 10:00 04/26/18 09:26 Cozaar - PO 25 mg DAILY IGGY Administration Meclizine HCl 25 mg 04/24/18 06:00 04/26/18 06:32 Antivert - PO 25 mg TID IGGY Administration Metoprolol Succinate 25 mg 04/24/18 10:00 04/26/18 09:26 Toprol Xl - PO 25 mg DAILY IGGY Administration Pantoprazole Sodium 40 mg 04/24/18 10:00 04/26/18 09:26 Protonix - PO 40 mg DAILY IGGY Administration Sodium Bicarbonate 650 mg 04/24/18 06:00 04/26/18 06:33 Sodium Bicarbonate - PO 650 mg TID IGGY Administration Torsemide 60 mg 04/24/18 10:00 04/26/18 09:26 Demadex - PO 60 mg DAILY IGGY Administration Vital Signs Period Temp Pulse Resp BP Sys/Peter Pulse Ox Last 24 Hr 97.5 F-98.7 F 65-90 16-20 112-143/62-82 97-99 NAD, calm jvd tds CTAB, nl effort RRR nl s1, s2 no mrg + bs soft nt nd obese ext with trace edema bl venous stasis changes aaox3 no jaundice, diaphoresis CBC, BMP 04/24/18 06:00 04/26/18 07:15 ecg 09/16/16: sr, 1st avb, rbbb(old), twi v1-v4 tele: sr cxr: mild chf 06/2016 echo here: tds. Nl lv size/fn. RV not well seen. nl valves. 04/2015 echo SJR: tds. nl lv/rv. 1+ mr 04/2015 dipyridamole stress SJR: stach with RBBB, no further ekg changes. mod fixed apical defect with partial reversibility --> mod apical infarct with small area of periinfarct ischemia. inferobasal defect thought to be 2/2 attenuation. mild global HK, apical AK. EF 46% [facility] 11/2016 patent RPDA stent, planned stage LOS to OM1, LAD stable compared to prior [facility] 09/2016 LOS to RPDA, EDP 30 L/C 09/2016 wedge 45, CI 1.7, 80-90% pLAD, 90-95% mid LAD(small vessel), 70-80 % 1st septal, subtotal OM1, subtotal RPDA, EF 25% echo 03/2017 tds, definity severe hypok of basal to mid inferolateral wall, mod hypok of inf wall, mild hypok of mid lateral wall, basal lateral wall not well seen, EF 40-45%, mildly dilated LA echo 04/2018: tds; mild lve, nl lvef, rv tds, [place], mild mr a/p: 63 yo with h/o HTN, HL, chronic systolic chf, CAD setting of sepsis/wound infection, IDDM, followed by dr christie for DM neuropathy and wounds, PAD s/ p LE stent and rt forefoot amputation, here with dizziness Dizziness - orthostatic hypotension vs vertigo, now on meclizine. Sxs resolved. - echo w/o etiology - no significant events on tele - PT eval CAD - prior history of medically managed nstemi 2015 (peak troponin 4) in setting of sepsis/wound infection. at that time cath was deferred due to active underlying infection - s/p cath 09/22 with 3VD high risk CABG - multi vessel PCI with LOS to RPDA 2016, stage PCI of OM1 11/2016, LAD PCI deferred due to risk of procedure - on aspirin, plavix statin Chronic systolic HF - EF 40-45% 03/2017 with definity echo - on torsemide, metoprolol, lisinopril - appears euvolemic PAD s/p LE stent and rt forefoot amputation - con't asa, statin HTN -stable HL - cont statin ckd/sulema: -cr stable, bl low 2's cardiac trent stable
--- NOTE | 2018-04-26 15:06 | PN ---
Teaching Attending Note Name of Resident: Shena Hyatt ATTENDING PHYSICIAN STATEMENT I saw and evaluated the patient. I reviewed the resident's note and discussed the case with the resident. I agree with the resident's findings and plan as documented. SUBJECTIVE: Mr Duarte says he "still cannot walk". When told he walked over 50 ft with a walker yesterday he stated "yeah but I don't consider that walking ". Denies cp, sob, n/v. Expresses extreme displeasure about possible discharge today. OBJECTIVE: Last Vital Signs Temp Pulse Resp BP Pulse Ox 36.6 C 84 16 138/88 97 04/26/18 13:28 04/26/18 13:32 04/26/18 13:28 04/26/18 13:32 04/26/18 04:00 Gen: nad, obese Pulm: ctab w/o w/r/r CV: rrr w/o m/r/g Abd: +bs, s/nt/nd Ext: R BKA CBC, BMP 04/24/18 06:00 04/26/18 07:15 (1) Vertigo Assessment/Plan: -continue meclizine -patient states no longer with dizziness but with weakness -appreciate neurology assistance -noted that neurology note was edited today, requesting MRI/MRA -those recommendations were not present yesterday -ordered by neurology, will follow up -all other work up negative so far -if MRI/MRA negative, plan for discharge with rolling walker and home/ outpatient PT Code(s): R42 - DIZZINESS AND GIDDINESS (2) Diabetes mellitus Assessment/Plan: -continue diabetic diet and SSI Code(s): E11.9 - TYPE 2 DIABETES MELLITUS WITHOUT COMPLICATIONS Qualifiers: Diabetes mellitus type: type 2 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 transplanted heart: [place] heart Associated angina: without angina Qualified Code(s): I25.10 - Atherosclerotic heart disease of [place] coronary artery without angina pectoris (4) CKD (chronic kidney disease) stage 3, GFR 30-59 ml/min Assessment/Plan: -at baseline Code(s): N18.3 - CHRONIC KIDNEY DISEASE, STAGE 3 (MODERATE) (5) Hyperlipidemia Assessment/Plan: -continue statin Code(s): E78.5 - HYPERLIPIDEMIA, UNSPECIFIED Qualifiers: Hyperlipidemia type: unspecified Qualified Code(s): E78.5 - Hyperlipidemia , unspecified (6) Hypertension Assessment/Plan: -monitor -may need to adjust if uncontrolled Code(s): I10 - ESSENTIAL (PRIMARY) HYPERTENSION Qualifiers: Hypertension type: essential hypertension Qualified Code(s): I10 - Essential (primary) hypertension (7) PVD (peripheral vascular disease) Assessment/Plan: -continue aspirin and plavix Code(s): I73.9 - PERIPHERAL VASCULAR DISEASE, UNSPECIFIED (8) CHF (congestive heart failure) Assessment/Plan: -continue current management Code(s): I50.9 - HEART FAILURE, UNSPECIFIED Qualifiers: Heart failure type: systolic Heart failure chronicity: chronic Qualified Code(s): I50.22 - Chronic systolic (congestive) heart failure Problem List - Problems (1) Vertigo Code(s): R42 - DIZZINESS AND GIDDINESS (2) Diabetes mellitus Code(s): E11.9 - TYPE 2 DIABETES MELLITUS WITHOUT COMPLICATIONS Qualifiers: Diabetes mellitus type: type 2 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 transplanted heart: [place] heart Associated angina: without angina Qualified Code(s): I25.10 - Atherosclerotic heart disease of [place] coronary artery without angina pectoris (4) CKD (chronic kidney disease) stage 3, GFR 30-59 ml/min Code(s): N18.3 - CHRONIC KIDNEY DISEASE, STAGE 3 (MODERATE) (5) Hyperlipidemia Code(s): E78.5 - HYPERLIPIDEMIA, UNSPECIFIED Qualifiers: Hyperlipidemia type: unspecified Qualified Code(s): E78.5 - Hyperlipidemia , unspecified (6) Hypertension Code(s): I10 - ESSENTIAL (PRIMARY) HYPERTENSION Qualifiers: Hypertension type: essential hypertension Qualified Code(s): I10 - Essential (primary) hypertension (7) PVD (peripheral vascular disease) Code(s): I73.9 - PERIPHERAL VASCULAR DISEASE, UNSPECIFIED (8) CHF (congestive heart failure) Code(s): I50.9 - HEART FAILURE, UNSPECIFIED Qualifiers: Heart failure type: systolic Heart failure chronicity: chronic Qualified Code(s): I50.22 - Chronic systolic (congestive) heart failure
--- NOTE | 2018-04-26 15:20 | DS ---
Physical Exam: SUBJECTIVE: Patient seen and examined; walked 65 feet with rolling walker; denies dizziness OBJECTIVE: Vital Signs Period Temp Pulse Resp BP Sys/Peter Pulse Ox Last 24 Hr 97.5 F-98.7 F 68-90 16-20 112-143/62-88 97-99 PHYSICAL EXAM GENERAL: The patient is obese, awake, alert, and fully oriented, in no acute distress. LUNGS: Breath sounds equal, clear to auscultation bilaterally, no wheezes, no crackles, no accessory muscle use. HEART: Regular rate and rhythm, S1, S2 without murmur, rub or gallop. ABDOMEN: obese,Soft, nontender, nondistended, normoactive bowel sounds, no guarding, no rebound, no hepatosplenomegaly, no masses. EXTREMITIES: 2+ pulses, warm, well-perfused, no edema. Below ankle amputation right; venous status chanes b/l NEUROLOGICAL: Cranial nerves II through XII grossly intact. Normal speech, decreased sensation of b/l plantar feet; toes LABS Laboratory Results - last 24 hr 04/25/18 04/26/18 04/26/18 17:45 06:30 07:15 ESR 30 H Sodium Potassium Chloride Carbon Dioxide Anion Gap BUN Creatinine Creat Clearance w eGFR POC Glucometer 264 260 Random Glucose Calcium Phosphorus Magnesium 04/26/18 04/26/18 07:15 12:04 ESR Sodium 135 L Potassium 3.6 Chloride 99 Carbon Dioxide 28 Anion Gap 8 BUN 45 H Creatinine 1.9 H Creat Clearance w eGFR 36.22 POC Glucometer 322 Random Glucose 269 H Calcium 8.6 Phosphorus 3.9 Magnesium 2.4 HOSPITAL COURSE: Date of Admission:04/24/18 Date of Discharge: 04/26/18 Patient is a 60 year old morbidly obese male with a significant past medical history of right foot wound s/p transmetatarsal amputation of right foot last year, diabetes mellitus type 2, CAD, diastolic CHF, hypertension and hyperlipidemia, presenting after an episode of dizziness after getting up from seated position. He was treated with meclizine for vertigo, symptoms resolved. He was seen by neurology and cardiology. Echo with EF 45% ; poor visibility due to body habitus. Carotid doppler negative. Neurology work up. MRI Will follow up with cardiology and neurology. #peripheral neuropathy secondary -started on gabapentin #CAD -cont asa and plavix #diastolic CHF:not in acute exacerbation -cont torsemide #DM: -insulin ss -bgm #CKD: at baseline Minutes to complete discharge: 40 Discharge Summary Reason For Visit: VERTIGO Current Active Problems CHF (congestive heart failure) (Acute) Vertigo (Acute) Condition: Fair - Instructions Diet, Activity, Other Instructions: Mr. Duarte, you were evaluated for an episode of dizziness and instability on you feet. I seems you have an episode of vertigo, which is a spinning sensation you can have when you move too quickly. You have been prescribed a medication called meclizine. Please speak with your primary regarding your symptoms and how long you will be on this medication. You have also been started on a medication for nerve pain in your legs which is causes by your diabetes called gabapentin. I have also given you a script for a rolling walker. New Medication: Meclizine 25mg three times a day for two weeks Neurontin 300mg three times a day, you can speak with your primary doctor regarding increasing dose of medication if needed. Please return to the emergency room if you experience any worsening of symptoms including chest pain, shortness of breath, falls, fainting. 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 Referrals: Ramy Womack MD [Staff Physician] - Marlon Giraldo MD [Staff Physician] - Disposition: HOME - Home Medications Comprehensive Discharge Medication List: Ambulatory Orders Insulin (Novolog) [Novolog Flexpen -] 0 units SQ TIDAC #0 pen 08/07/13 Aspirin Coated [Ecotrin -] 81 mg PO DAILY tablet.ec 04/30/15 Insulin (Novolog 70/30) [Novolog Mix 70/30 Flexpen -] 60 units SQ BID 06/28/16 Metoprolol Succinate [Toprol XL -] 25 mg PO DAILY #30 tab.sr 07/05/16 Pantoprazole Sodium [Protonix -] 40 mg PO DAILY #30 tab.ec 07/05/16 Torsemide [Demadex -] 60 mg PO DAILY 09/15/16 Liraglutide [Victoza -] 1.2 mg SQ BID 06/07/17 Gentamicin 0.1% Ointment [Garamycin 0.1% Ointment -] 1 applic TP DAILY #30 grams 12/20/17 Ferrous Sulfate 325 mg PO DAILY 02/28/18 Losartan Potassium 25 mg PO DAILY 02/28/18 Sodium Bicarbonate - 650 mg PO TID 02/28/18 Atorvastatin Ca [Lipitor] 40 mg PO HS 04/23/18 Clopidogrel Bisulfate [Plavix] 75 mg PO DAILY 04/23/18 Gabapentin [Neurontin -] 300 mg PO TID 14 Days #42 capsule 04/26/18 Meclizine HCl [Antivert -] 25 mg PO TID 7 Days #21 tablet 04/26/18 Miscellaneous Drug Not In Syst [facility]patient Lab Test[facility] [Outpatient Order] 1 each ASDIR #1 [facility] [place] This patient is new to me today: Yes Date on this admission: 04/27/18 Emergency Visit: Yes ED Registration Date: 04/24/18 Care time: The patient presented to the Emergency Department on the above date and was hospitalized for further evaluation of their emergent condition. Critical Care patient: No - Discharge Referral Referred to [facility] No
[2018-04-26] MEDS ORDERED: ATORVASTATIN CA 40 MG TABLET (FP) PO SCH (22:00)
[2018-04-27] MEDS: HEPARIN NA (PORCINE) 5,000 UNITS/ML 1ML VIAL SQ SCH (05:44)
[2018-04-27] MEDS: SODIUM BICARBONATE 650 MG TABLET PO SCH (05:44)
[2018-04-27] MEDS: MECLIZINE HCL 25 MG TABLET (FP) PO SCH (05:44)
[2018-04-27] MEDS: GABAPENTIN 300 MG CAPSULE (FP) PO SCH (05:44)
[2018-04-27] MEDS ORDERED: INSULIN SLIDING SCALE (NOVOLOG) 1 VIAL SQ SCH (07:00)
[2018-04-27] MEDS ORDERED: CLOPIDOGREL BISULFATE 75 MG TABLET (FP) PO SCH (10:00)
[2018-04-27] MEDS ORDERED: ASPIRIN COATED 81 MG TABLET.EC PO SCH (10:00)
[2018-04-27] MEDS ORDERED: FERROUS SO4 325 MG TABLET (FP) PO SCH (10:00)
[2018-04-27] MEDS ORDERED: PANTOPRAZOLE 40 MG TABLET (FP) PO SCH (10:00)
[2018-04-27] MEDS ORDERED: LOSARTAN POTASSIUM 25 MG TABLET PO SCH (10:00)
[2018-04-27] MEDS ORDERED: metoPROLOL SUCCINATE 25 MG TAB.SR.24H (FP) PO SCH (10:00)
[2018-04-27] MEDS ORDERED: TORSEMIDE 20 MG TABLET (FP) PO SCH (10:00)
--- NOTE | 2018-04-27 11:46 | PN ---
Progress Note (short form) - Note Progress Note: S: no cp sob palps dizzy; still with leg weakness Current Medications Generic Name Dose Route Start Last Admin Trade Name Isabella PRN Reason Stop Dose Admin Aspirin 81 mg 04/27/18 10:00 04/27/18 10:00 Ecotrin - PO 81 mg DAILY IGGY Administration Atorvastatin Calcium 40 mg 04/26/18 22:00 04/26/18 21:22 Lipitor - PO 40 mg HS IGGY Administration Clopidogrel Bisulfate 75 mg 04/27/18 10:00 04/27/18 09:59 Plavix - PO 75 mg DAILY IGGY Administration Ferrous Sulfate 325 mg 04/27/18 10:00 04/27/18 09:59 Feosol - PO 325 mg DAILY IGGY Administration Gabapentin 300 mg 04/26/18 22:00 04/27/18 05:44 Neurontin - PO 300 mg TID IGGY Administration Heparin Sodium (Porcine) 5,000 unit 04/26/18 22:00 04/27/18 05:44 Heparin - SQ 5,000 unit TID IGGY Administration Insulin Aspart 1 vial 04/27/18 07:00 04/27/18 06:04 Novolog Vial Sliding Scale - SQ 4 units TIDAC IGGY Administration Protocol Losartan Potassium 25 mg 04/27/18 10:00 04/27/18 09:59 Cozaar - PO 25 mg DAILY IGGY Administration Meclizine HCl 25 mg 04/26/18 22:00 04/27/18 05:44 Antivert - PO 25 mg TID IGGY Administration Metoprolol Succinate 25 mg 04/27/18 10:00 04/27/18 10:00 Toprol Xl - PO 25 mg DAILY IGGY Administration Pantoprazole Sodium 40 mg 04/27/18 10:00 04/27/18 10:00 Protonix - PO 40 mg DAILY IGGY Administration Sodium Bicarbonate 650 mg 04/26/18 22:00 04/27/18 05:44 Sodium Bicarbonate - PO 650 mg TID IGGY Administration Torsemide 60 mg 04/27/18 10:00 04/27/18 10:00 Demadex - PO 60 mg DAILY IGGY Administration Vital Signs Period Temp Pulse Resp BP Sys/Peter Pulse Ox Last 24 Hr 97.9 F-98.2 F 66-84 16-20 105-146/46-88 96-100 NAD, calm jvd tds CTAB, nl effort RRR nl s1, s2 no mrg + bs soft nt nd obese ext with trace edema bl venous stasis changes aaox3 no jaundice, diaphoresis CBC, BMP 04/24/18 06:00 04/26/18 07:15 ecg 09/16/16: sr, 1st avb, rbbb(old), twi v1-v4 tele: sr cxr: mild chf 06/2016 echo here: tds. Nl lv size/fn. RV not well seen. nl valves. 04/2015 echo SJR: tds. nl lv/rv. 1+ mr 04/2015 dipyridamole stress SJR: stach with RBBB, no further ekg changes. mod fixed apical defect with partial reversibility --> mod apical infarct with small area of periinfarct ischemia. inferobasal defect thought to be 2/2 attenuation. mild global HK, apical AK. EF 46% [facility] 11/2016 patent RPDA stent, planned stage LOS to OM1, LAD stable compared to prior [facility] 09/2016 LOS to RPDA, EDP 30 L/C 09/2016 wedge 45, CI 1.7, 80-90% pLAD, 90-95% mid LAD(small vessel), 70-80 % 1st septal, subtotal OM1, subtotal RPDA, EF 25% echo 03/2017 tds, definity severe hypok of basal to mid inferolateral wall, mod hypok of inf wall, mild hypok of mid lateral wall, basal lateral wall not well seen, EF 40-45%, mildly dilated LA echo 04/2018: tds; mild lve, nl lvef, rv tds, [place], mild mr a/p: 63 yo with h/o HTN, HL, chronic systolic chf, CAD setting of sepsis/wound infection, IDDM, followed by dr christie for DM neuropathy and wounds, PAD s/ p LE stent and rt forefoot amputation, here with dizziness Dizziness - orthostatic hypotension vs vertigo, now on meclizine. Sxs resolved. - echo w/o etiology - no significant events on tele - PT eval CAD - prior history of medically managed nstemi 2015 (peak troponin 4) in setting of sepsis/wound infection. at that time cath was deferred due to active underlying infection - s/p cath 09/22 with 3VD high risk CABG - multi vessel PCI with LOS to RPDA 2016, stage PCI of OM1 11/2016, LAD PCI deferred due to risk of procedure - on aspirin, plavix statin Chronic systolic HF - EF 40-45% 03/2017 with definity echo - on torsemide, metoprolol, lisinopril - appears euvolemic PAD s/p LE stent and rt forefoot amputation - con't asa, statin HTN -stable HL - cont statin ckd/sulema: -cr stable, bl low 2's cardiac trent stable
[2018-04-27 12:54] VITALS: BP 137/79; PULSE 81; TEMP 98.2
== END 2018-04-27 12:15 | disposition home or self-care (01) ==
LOC: JER 13:57 → JERBED 04-24 00:46 → INTOOBSV 04-24 00:46 → UNDOADMOB 04-24 00:46 → JERBED 04-24 01:50 → J8W 04-24 17:50 → J4S 04-25 01:48
PROVIDERS: ADMIT Internal Medicine; ATTEND Internal Medicine
PROC: 3E013VG Introduction of Insulin into Subcutaneous Tissue, Percutaneous Approach (ICD-10-PCS; principal; 2018-04-24)
PROC: 3E013GC Introduction of Other Therapeutic Substance into Subcutaneous Tissue, Percutaneous Approach (ICD-10-PCS; 2018-04-24)
PROC: 3E0337Z Introduction of Electrolytic and Water Balance Substance into Peripheral Vein, Percutaneous Approach (ICD-10-PCS; 2018-04-24)
DX: H81.10 Benign paroxysmal vertigo, unspecified ear (principal); E11.22 Type 2 diabetes mellitus with diabetic chronic kidney disease; I12.9 Hypertensive chronic kidney disease with stage 1 through stage 4 chronic kidney disease, or unspecified chronic kidney disease; N18.3 Chronic kidney disease, stage 3 (moderate); Z79.4 Long term (current) use of insulin; E11.40 Type 2 diabetes mellitus with diabetic neuropathy, unspecified; I50.22 Chronic systolic (congestive) heart failure; I11.0 Hypertensive heart disease with heart failure; E78.5 Hyperlipidemia, unspecified; I25.10 Atherosclerotic heart disease of native coronary artery without angina pectoris; I25.2 Old myocardial infarction; I73.9 Peripheral vascular disease, unspecified; I44.2 Atrioventricular block, complete; G47.33 Obstructive sleep apnea (adult) (pediatric); Z89.431 Acquired absence of right foot; E66.01 Morbid (severe) obesity due to excess calories; Z68.41 Body mass index [BMI] 40.0-44.9, adult; Z99.89 Dependence on other enabling machines and devices; Z95.5 Presence of coronary angioplasty implant and graft; Z79.82 Long term (current) use of aspirin; R27.0 Ataxia, unspecified; R51 Headache; G93.89 Other specified disorders of brain
CPT/HCPCS: 36415; 70450-TC; 70544-TC; 70551-TC; 80048; 80053; 81003; 81015; 82550; 82962; 83735; 84100; 84484; 85025; 85027; 85610; 85651; 85730; 86140; 87081; 87086; 93005; 93010; 93306-TC; 93880-TC; 94660; 96372; 97116-GP; 97161-GP; 99285-25; G0378; J1644

== ENCOUNTER 2018-07-23 14:00 | Emergency (ER) | payer OTHER, BC ==
[2018-07-23 14:14] VITALS: BP 144/90; PULSE 74; TEMP 98.8; BMI 41.2
--- NOTE | 2018-07-23 15:17 | PDOC ---
Documentation entered by Manuel Acevedo SCRIBE, acting as scribe for Oleg Sharpe MD. Oleg Sharpe MD: This documentation has been prepared by the Kristina matthew Elijah, SCRIBE, under my direction and personally reviewed by me in its entirety. I confirm that the documentation accurately reflects all work, treatment, procedures, and medical decision making performed by me. History of Present Illness - General Chief Complaint: Pain Stated Complaint: RIGHT HAND PAIN Time Seen by Provider: 07/23/18 14:06 History Source: Patient Exam Limitations: No Limitations - History of Present Illness Initial Comments: 07/23/18 14:45 The patient is a 63 year old male with a significant past medical history of CAD , CHF, HTN, HLD, and DM, who presents to the ED pain in his R wrist beginning 5 days ago. The patient first noticed the pain while playing golf. Denies any injury to the wrist. The patient reports pain in the wrist when he tries to grasp things in his hand. The patient took extra-strength Tylenol this morning with minimal relief, prompting his arrival to the ED. Denies redness, abnormal swelling, discharge/drainage, breakage of skin, fever, chills, nausea and vomiting. Allergies: NKA Past History - Past Medical History Allergies/Adverse Reactions: Allergies Allergy/AdvReac Type Severity Reaction Status Date / Time No Known Drug Allergies Allergy Verified 04/23/18 14:21 Home Medications: Ambulatory Orders Aspirin Coated [Ecotrin -] 81 mg PO DAILY tablet.ec 04/30/15 Insulin (Novolog 70/30) [Novolog Mix 70/30 Flexpen -] 60 units SQ BID 06/28/16 Torsemide [Demadex -] 60 mg PO DAILY 09/15/16 Liraglutide [Victoza -] 1.2 mg SQ BID 06/07/17 Ferrous Sulfate 325 mg PO DAILY 02/28/18 Sodium Bicarbonate - 650 mg PO TID 02/28/18 Atorvastatin Ca [Lipitor] 40 mg PO HS 04/23/18 Clopidogrel Bisulfate [Plavix] 75 mg PO DAILY 04/23/18 Empagliflozin [Jardiance] 10 mg PO DAILY 07/03/18 Icosapent Ethyl [Vascepa] 2 gm PO BID 07/03/18 Potassium Chloride 20 meq PO DAILY 07/03/18 Acetaminophen [Tylenol Extra Strength] 1,500 mg PO TID PRN 07/23/18 Metoprolol Succinate [Toprol Xl] 100 mg PO DAILY 07/23/18 Anemia: No Asthma: No Cancer: No Cardiac Disorders: Yes (2 stents) CVA: No COPD: No CHF: Yes Dementia: No Diabetes: Yes GI Disorders: No Disorders: No HTN: Yes Hypercholesterolemia: Yes Liver Disease: No Seizures: No Thyroid Disease: No - Surgical History Abdominal Surgery: No Appendectomy: No Cardiac Surgery: Yes (stent) Cholecystectomy: No Lung Surgery: No Neurologic Surgery: No Orthopedic Surgery: Yes (Transmetatarsal amputation of right foot) - Immunization History Immunization Up to Date: Yes - Suicide/Smoking/Psychosocial Hx Smoking Status: Yes Smoking History: Former smoker Have you smoked in the past 12 months: No Number of Cigarettes Smoked Daily: 10 If you are a former smoker, when did you quit?: 2016 Information on smoking cessation initiated: No 'Breaking Loose' booklet given: 04/10/15 Hx Alcohol Use: Yes Drug/Substance Use Hx: No Substance Use Type: None Hx Substance Use Treatment: No Review of Systems - Review of Systems Comments:: 07/23/18 14:45 GENERAL/CONSTITUTIONAL: No fever or chills. No weakness. HEAD, EYES, EARS, NOSE AND THROAT: No change in vision. No ear pain or discharge. No sore throat. CARDIOVASCULAR: No chest pain, no shortness of breath, no loss of consciousness RESPIRATORY: No cough, wheezing, or hemoptysis. GASTROINTESTINAL: No nausea, vomiting, diarrhea or constipation. GENITOURINARY: No dysuria, frequency, or change in urination. MUSCULOSKELETAL: No joint or muscle swelling or pain. No neck or back pain. EXTREMITIES: +Pain to R wrist SKIN: No rash NEUROLOGIC: No vertigo, no change in strength/sensation. ENDOCRINE: No increased thirst. No abnormal weight change. HEMATOLOGIC/LYMPHATIC: No anemia, easy bleeding, or history of blood clots. ALLERGIC/IMMUNOLOGIC: No hives or skin allergy *Physical Exam - Vital Signs Last Vital Signs Temp Pulse Resp BP Pulse Ox 98.8 F 74 18 144/90 98 07/23/18 14:01 07/23/18 14:01 07/23/18 14:01 07/23/18 14:01 07/23/18 14:01 - Physical Exam Comments: 07/23/18 14:46 GENERAL: Awake, alert, and fully oriented, in no acute distress. HEAD: No signs of trauma EYES: PERRLA, EOMI, sclera anicteric, conjunctiva clear ENT: Auricles normal inspection, hearing grossly normal, nares patent, oropharynx clear without exudates. Moist mucosa NECK: Nontender, no stepoffs, Normal ROM, supple, no lymphadenopathy, JVD, or masses LUNGS: Breath sounds equal, clear to auscultation bilaterally. No wheezes, and no crackles HEART: Regular rate and rhythm, normal S1 and S2, no murmurs, rubs or gallops ABDOMEN: Soft, nontender, normoactive bowel sounds. No guarding, no rebound. No masses EXTREMITIES: + Right upper extremity with mild tenderness to the volar aspect of the wrist. + pain with passive extension of wrist, no flexor tendon tenderness, no sausage digits, no erythema, No effusion. Normal range of motion. No clubbing or cyanosis. No cords or erythema NEUROLOGICAL: Cranial nerves II through XII intact. 5/5 strength and sensation in all extremities, Normal speech, normal cerebellar function SKIN: Warm, Dry, normal turgor, no rashes or lesions noted ED Treatment Course - RADIOLOGY Radiology Studies Ordered: Category Date Time Status WRIST- RIGHT [RAD] Stat Radiology 07/23/18 14:32 Taken Medical Decision Making - Medical Decision Making 07/23/18 15:08 63 M with R wrist pain after playing golf. Likely tendinitis. Pt with no evidence of tenosynovitis or other infectious process. - XR negative on my read - Wrist splint applied - DC with ortho f/u Pt is well appearing, with normal vitals. Clinically stable for DC at this time. I discussed the physical exam findings, ancillary test results and final diagnoses with the patient. I answered all of the patient's questions. The patient was satisfied with the care received and felt comfortable with the discharge plan and treatment plan. The patient agrees to follow up with the primary care physician within 24-72 hours. *DC/Admit/Observation/Transfer Diagnosis at time of Disposition: Wrist pain - Discharge Dispostion Disposition: HOME Condition at time of disposition: Good - Referrals Referrals: Veda Alexander MD [Primary Care Provider] - Loaiza,Nicholas A, DO [Staff Physician] - - Patient Instructions Printed Discharge Instructions: DI for Wrist Pain Additional Instructions: Your pain is likely due to tendinitis, which is caused by overuse. Keep your wrist in the splint until it feels better. Take tylenol as needed for pain. If you continue to have pain after 2-3 days, call the number provided to make an appointment with an orthopedic surgeon. If you experience any worsening pain, swelling, redness, fevers, or any other concerning symptoms, return to the ER immediately. - Post Discharge Activity - Attestations Physician Attestion: 07/23/18 15:16 I, Dr. Oleg Sharpe MD, attest that this document has been prepared under my direction and personally reviewed by me in its entirety. I further attest, that it accurately reflects all work, treatment, procedures and medical decision -making performed by me.
== END 2018-07-23 15:40 | disposition home or self-care (01) ==
LOC: FER 14:00
PROC: 2W3CX1Z Immobilization of Right Lower Arm using Splint (ICD-10-PCS; principal; 2018-07-23)
DX: M25.531 Pain in right wrist (principal); X58.XXXA Exposure to other specified factors, initial encounter; Y93.53 Activity, golf; Y92.39 Other specified sports and athletic area as the place of occurrence of the external cause; Z87.891 Personal history of nicotine dependence; Z95.5 Presence of coronary angioplasty implant and graft; E78.00 Pure hypercholesterolemia, unspecified; I10 Essential (primary) hypertension; I50.9 Heart failure, unspecified
CPT/HCPCS: 29125; 73110-TC-RT-FY; 99282-25

== ENCOUNTER 2019-02-14 14:34 | Inpatient (IN) | payer OTHER, BC ==
--- NOTE | 2019-02-14 14:41 | PDOC ---
Rapid Medical Evaluation Chief Complaint: Wound Time Seen by Provider: 02/14/19 14:38 Medical Evaluation: Allergies Allergy/AdvReac Type Severity Reaction Status Date / Time No Known Drug Allergies Allergy Verified 02/14/19 14:38 Vital Signs Temp Pulse Resp BP Pulse Ox 97.8 F 89 18 124/85 98 02/14/19 14:35 02/14/19 14:35 02/14/19 14:35 02/14/19 14:35 02/14/19 14:35 02/14/19 14:38 pt c/o: left 5th toe wound debrided yesterday. Sent by Dr christie for admission, iv abx Pt on brief exam: foot covered with dressing. vss, ambulatory in NAD Pt ordered for: iv, labs, Pt to proceed to the ED Discharge Disposition - Diagnosis Diabetic foot ulcer - Referrals - Patient Instructions - Post Discharge Activity
--- NOTE | 2019-02-14 14:59 | PDOC ---
History of Present Illness - General Chief Complaint: Wound Stated Complaint: LT FOOT PAIN Time Seen by Provider: 02/14/19 14:38 History Source: Patient, Old Records Exam Limitations: No Limitations - History of Present Illness Initial Comments: 02/14/19 14:59 CHIEF COMPLAINT: Foot wound HISTORY OF PRESENT ILLNESS: This is a 63-year-old male with a history of CAD, CHF, HTN, HLD, IDDM, and chronic lower extremity wounds cared for by [facility], sent by Dr. Ba today for admission following debridement of left fifth toe wound yesterday. Patient denies fever/ chills. He states wound has not been draining. He has pain with weightbearing. Vital signs on arrival are unremarkable. PCP: Dr. Alexander Vascular: Dr. Ba [employer] Mechanic: Dr. 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 No weakness. No weight change. HEAD, EYES, EARS, NOSE AND THROAT: No change in vision. No ear pain or discharge. No sore throat. CARDIOVASCULAR: No chest pain or palpitations. RESPIRATORY: No cough, wheezing, or shortness of breath. GASTROINTESTINAL: No nausea, vomiting, diarrhea or constipation. GENITOURINARY: No dysuria, frequency, or change in urination. MUSCULOSKELETAL: See HPI. SKIN: No rash or easy bruising. NEUROLOGIC: No headache, vertigo, loss of consciousness, or loss of sensation. PSYCHIATRIC: No depression or anxiety. ENDOCRINE: No increased thirst. No abnormal weight change. HEMATOLOGIC/LYMPHATIC: No anemia, easy bleeding, or history of blood clots. ALLERGIC/IMMUNOLOGIC: No hives or skin allergy. No latex allergy. PHYSICAL EXAM: GENERAL: The patient is awake, alert, and fully oriented, in no acute distress. HEAD: Normal with no signs of trauma. ENT: Pupils equal, round and reactive to light, extraocular movements intact, sclera anicteric, conjunctiva clear. Neck supple. LUNGS: Clear to auscultation bilaterally. Normal excursion. No respiratory distress or use of accessory muscles. CV: RRR, S1/S2, no MRG. Cap refill < 2 sec. ABDOMEN: Soft, non-distended, non-tender. EXTREMITIES: Left 5th toe ulcer, no drainage, mild discoloration. Tibial erythema with shallow ulceration; chronic per patient. NEUROLOGICAL: Normal speech, normal gait. CN II-XII grossly intact. PSYCH: Normal mood, normal affect. SKIN: Warm, dry, normal turgor, no rashes or lesions noted. Past History - Past Medical History Allergies/Adverse Reactions: Allergies Allergy/AdvReac Type Severity Reaction Status Date / Time No Known Drug Allergies Allergy Verified 02/14/19 14:38 Home Medications: Ambulatory Orders Aspirin Coated [Ecotrin -] 81 mg PO DAILY tablet.ec 04/30/15 Insulin (Novolog 70/30) [Novolog Mix 70/30 Flexpen -] 60 units SQ BID 06/28/16 Torsemide [Demadex -] 60 mg PO DAILY 09/15/16 Liraglutide [Victoza -] 1.2 mg SQ BID 06/07/17 Ferrous Sulfate 325 mg PO DAILY 02/28/18 Sodium Bicarbonate - 650 mg PO TID 02/28/18 Atorvastatin Ca [Lipitor] 40 mg PO HS 04/23/18 Clopidogrel Bisulfate [Plavix] 75 mg PO DAILY 04/23/18 Empagliflozin [Jardiance] 10 mg PO DAILY 07/03/18 Icosapent Ethyl [Vascepa] 2 gm PO BID 07/03/18 Potassium Chloride 20 meq PO DAILY 07/03/18 Acetaminophen [Tylenol Extra Strength] 1,500 mg PO TID PRN 07/23/18 Metoprolol Succinate [Toprol Xl] 100 mg PO DAILY 07/23/18 Oxycodone HCl 5 mg PO TID PRN #9 tablet MDD 3 tabs 07/23/18 Ammonium Lactate Lotion [Lac-Hydrin 12% Lotion -] 1 applic TP DAILY #2 bottle Desonide [Tridesilon] 60 gm TP BID #60 cream..g. 08/01/18 Amoxicillin/Potassium Clav [Augmentin 875-125 Tablet] 1 each PO BID 5 Days #10 tablet 02/13/19 Anemia: No Asthma: No Cancer: No Cardiac Disorders: Yes (2 stents) CVA: No COPD: No CHF: Yes Dementia: No Diabetes: Yes GI Disorders: No Disorders: No HTN: Yes Hypercholesterolemia: Yes Liver Disease: No Seizures: No Thyroid Disease: No - Surgical History Abdominal Surgery: No Appendectomy: No Cardiac Surgery: Yes (stent) Cholecystectomy: No Lung Surgery: No Neurologic Surgery: No Orthopedic Surgery: Yes (Transmetatarsal amputation of right foot) - Immunization History Immunization Up to Date: Yes - Psycho Social/Smoking Cessation Hx Smoking Status: Yes Smoking History: Never smoked Have you smoked in the past 12 months: No Number of Cigarettes Smoked Daily: 10 If you are a former smoker, when did you quit?: 2015 'Breaking Loose' booklet given: 04/10/15 Hx Alcohol Use: Yes Drug/Substance Use Hx: No Substance Use Type: None Hx Substance Use Treatment: No *Physical Exam - Vital Signs Last Vital Signs Temp Pulse Resp BP Pulse Ox 97.8 F 89 18 124/85 98 02/14/19 14:35 02/14/19 14:35 02/14/19 14:35 02/14/19 14:35 02/14/19 14:35 ED Treatment Course - LABORATORY CBC & Chemistry Diagram: 02/15/19 08:15 02/15/19 08:15 Medical Decision Making - Medical Decision Making 02/14/19 15:19 A/P: 63-year-old male with IDDM and chronic foot wounds s/p debridement of left 5th toe yesterday, sent for admission. Discussed with Dr. Ba: -Zosyn -Leg elevation -Admit - accepted to Hospitalist by Dr. Camacho Discharge - Discharge Information Problems reviewed: Yes Clinical Impression/Diagnosis: Diabetic foot ulcer Condition: Guarded - Admission Yes - Follow up/Referral - Patient Discharge Instructions - Post Discharge Activity
[2019-02-14] MEDS ORDERED: PIPERACILLIN/TAZOB 4.5 GM 4.5 GM in DEXTROSE 5%-WATER 100 ML IVPB ONE (15:10)
[2019-02-14] MEDS ORDERED: PIPERACILLIN/TAZOB 4.5 GM 4.5 GM/100 ML BAG IVPB ONE (15:45)
[2019-02-14 16:06] LABS: BASO % 0.5 % (0-2.0); EOS % 4.6 % (0-4.5); HEMATOCRIT 44.6 % (35.4-49); HEMOGLOBIN 14.7 GM/dL (11.7-16.9); LYMPH % 12.7 % (8-40); MCH 26.6 pg (25.7-33.7); MCHC 32.9 g/dl (32.0-35.9); MEAN CELL VOLUME 80.9 fl (80-96); MEAN PLT VOLUME 8.7 fl (7.5-11.1); MONO % 7.4 % (3.8-10.2); NEUT % 74.8 % (42.8-82.8); PLATELET COUNT 330 K/MM3 (134-434); RBC 5.51 M/mm3 (4.00-5.60); RDW 16.7 % (11.9-15.9); WHITE BLOOD COUNT 9.1 K/mm3 (4.0-10.0)
--- NOTE | 2019-02-14 16:21 | PDOC ---
*Physical Exam - Vital Signs Last Vital Signs Temp Pulse Resp BP Pulse Ox 97.8 F 89 18 124/85 98 02/14/19 14:35 02/14/19 14:35 02/14/19 14:35 02/14/19 14:35 02/14/19 14:35 - Physical Exam 02/14/19 16:20 afebrile wound as per RECOVERY ANALYST note ED Treatment Course - LABORATORY CBC & Chemistry Diagram: 02/19/19 07:40 02/21/19 07:35 - ADDITIONAL ORDERS Additional order review: 02/14/19 15:15 RBC 5.51 MCV 80.9 MCHC 32.9 RDW 16.7 H MPV 8.7 Neutrophils % 74.8 Lymphocytes % 12.7 D Monocytes % 7.4 Eosinophils % 4.6 H Basophils % 0.5 - Medications Given in the ED: ED Medications Discontinued Medications Generic Name Dose Route Start Last Admin Trade Name Freq PRN Reason Stop Dose Admin Piperacillin Sod/Tazobactam 100 mls @ 200 mls/hr 02/14/19 15:10 02/14/19 15: 55 Sod 4.5 gm/ Dextrose IVPB 02/14/19 15:39 200 mls/hr ONCE ONE Administration Protocol Medical Decision Making - Medical Decision Making 02/14/19 16:20 63-year-old male with chronic nonhealing wound, sent for admission for acute infection and antibiotics. Labs as noted without leukocytosis Antibiotics ordered Admission Discharge - Discharge Information Problems reviewed: Yes Clinical Impression/Diagnosis: Diabetic foot ulcer Qualifiers: Diabetic foot ulcer location: unspecified part of foot Diabetes mellitus type: other specified (including DESTINY) Laterality: unspecified laterality Non- pressure ulcer stage: unspecified non-pressure ulcer stage Qualified Code(s): E13.621 - Other specified diabetes mellitus with foot ulcer; L97.509 - Non- pressure chronic ulcer of other part of unspecified foot with unspecified severity Condition: Stable Disposition: HOME - Follow up/Referral - Patient Discharge Instructions - Post Discharge Activity
[2019-02-14 16:46] LABS: ALBUMIN 3.4 g/dl (3.4-5.0); BILIRUBIN,TOTAL 0.4 mg/dL (0.2-1); BLOOD UREA NITROGEN 30.2 mg/dL (7-18); CALCIUM 9.1 mg/dL (8.5-10.1); CREATININE 1.7 mg/dL (0.55-1.3); POTASSIUM 3.7 mmol/L (3.5-5.1); TOT PROT 7.5 g/dl (6.4-8.2)
[2019-02-14] MEDS ORDERED: VANCOMYCIN 1 GRAM (PRE-DOCKED) 1,000 MG/250 ML BAG IVPB ONE ×2 (17:47→18:15)
--- NOTE | 2019-02-14 18:10 | HP ---
CHIEF COMPLAINT: LLE pain HISTORY OF PRESENT ILLNESS: 63 M h/o CAD s/p stents, CKD 3, HTN, HLD, peripheral neuropathy,T2DM, morbid obesity, R TMA, BRITTNEY on CPAP, chronic LLE ulcer requiring debridement 2 days ago presents to ED for IV abx. Patient follows with Dr. Page (vascular), where he went to wound center and had debridement of chronic ulcer in L 4th toe. Per vascular recommendations he sent patient to ED to receive IV antibiotics and for further monitoring. Patient denies: CP/SOB/LOC/abdominal pain/N/V/D/fever/ chills/dizziness. Endorses some pain LLE, but bearable, has history of similar RLE ulcer which eventually required R TMA in 2016. ER course was notable for: (1) Receiving IV Zosyn (2) added additional 1g of Vancomycin (3) Recent Travel: denies PAST MEDICAL HISTORY: as above PAST SURGICAL HISTORY: R TMA, L 5th toe debridement Social History: former smoker, drinker Smoking: denies Alcohol: denies Drugs: denies Allergies No Known Drug Allergies Allergy (Verified 02/14/19 14:38) HOME MEDICATIONS: Home Medications Medication Instructions Recorded Aspirin Coated [Ecotrin -] 81 mg PO DAILY tablet.ec 04/30/15 Insulin (Novolog 70/30) [Novolog 60 units SQ BID 06/28/16 Mix 70/30 Flexpen -] Torsemide [Demadex -] 60 mg PO DAILY 09/15/16 Liraglutide [Victoza -] 1.2 mg SQ BID 06/07/17 Ferrous Sulfate 325 mg PO DAILY 02/28/18 Sodium Bicarbonate - 650 mg PO TID 02/28/18 Atorvastatin Ca [Lipitor] 40 mg PO HS 04/23/18 Clopidogrel Bisulfate [Plavix] 75 mg PO DAILY 04/23/18 Empagliflozin [Jardiance] 10 mg PO DAILY 07/03/18 Icosapent Ethyl [Vascepa] 2 gm PO BID 07/03/18 Potassium Chloride 20 meq PO DAILY 07/03/18 Acetaminophen [Tylenol Extra 1,500 mg PO TID PRN 07/23/18 Strength] Metoprolol Succinate [Toprol Xl] 100 mg PO DAILY 07/23/18 Oxycodone HCl 5 mg PO TID PRN #9 tablet MDD 3 07/23/18 tabs Ammonium Lactate Lotion 1 applic TP DAILY #2 bottle 08/01/18 [Lac-Hydrin 12% Lotion -] Desonide [Tridesilon] 60 gm TP BID #60 cream..g. 08/01/18 Amoxicillin/Potassium Clav 1 each PO BID 5 Days #10 tablet 02/13/19 [Augmentin 875-125 Tablet] REVIEW OF SYSTEMS CONSTITUTIONAL: Absent: fever, chills, diaphoresis, generalized weakness, malaise, loss of appetite, weight change HEENT: Absent: rhinorrhea, nasal congestion, throat pain, throat swelling, difficulty swallowing, mouth swelling, ear pain, eye pain, visual changes CARDIOVASCULAR: Absent: chest pain, syncope, palpitations, irregular heart rate, lightheadedness , peripheral edema RESPIRATORY: Absent: cough, shortness of breath, dyspnea with exertion, orthopnea, wheezing, stridor, hemoptysis GASTROINTESTINAL: Absent: abdominal pain, abdominal distension, nausea, vomiting, diarrhea, constipation, melena, hematochezia GENITOURINARY: Absent: dysuria, frequency, urgency, hesitancy, hematuria, flank pain, genital pain MUSCULOSKELETAL: LLE pain Absent: myalgia, arthralgia, joint swelling, back pain, neck pain SKIN: Absent: rash, itching, pallor HEMATOLOGIC/IMMUNOLOGIC: Absent: easy bleeding, easy bruising, lymphadenopathy, frequent infections ENDOCRINE: Absent: unexplained weight gain, unexplained weight loss, heat intolerance, cold intolerance NEUROLOGIC: Absent: headache, focal weakness or paresthesias, dizziness, unsteady gait, seizure, mental status changes, bladder or bowel incontinence PSYCHIATRIC: Absent: anxiety, depression, suicidal or homicidal ideation, hallucinations. PHYSICAL EXAMINATION PHYSICAL EXAM: GENERAL: The patient is awake, alert, and fully oriented, in no acute distress. HEAD: Normal with no signs of trauma. HEENT: Pupils equal, round and reactive to light, extraocular movements intact, sclera anicteric, conjunctiva clear. Neck supple. LUNGS: Clear to auscultation bilaterally. Normal excursion. No respiratory distress or use of accessory muscles. CV: RRR, S1/S2, no MRG. Cap refill < 2 sec. ABDOMEN: Soft, non-distended, non-tender. EXTREMITIES: Left 5th toe ulcer, trace drainage, mild discoloration. Tibial erythema with shallow ulceration; chronic per patient. NEUROLOGICAL: Normal speech, normal gait. CN II-XII grossly intact. PSYCH: Normal mood, normal affect. SKIN: Warm, dry, normal turgor, no rashes or lesions noted. Vital Signs - 24 hr 02/14/19 14:35 Temperature 97.8 F Pulse Rate 89 Respiratory 18 Rate Blood Pressure 124/85 O2 Sat by Pulse 98 Oximetry (%) Laboratory Results - last 24 hr 02/14/19 02/14/19 15:15 15:15 WBC 9.1 RBC 5.51 Hgb 14.7 Hct 44.6 D MCV 80.9 MCH 26.6 MCHC 32.9 RDW 16.7 H Plt Count 330 D MPV 8.7 Absolute Neuts (auto) 6.8 Neutrophils % 74.8 Lymphocytes % 12.7 D Monocytes % 7.4 Eosinophils % 4.6 H Basophils % 0.5 Nucleated RBC % 0 Sodium 139 Potassium 3.7 Chloride 105 Carbon Dioxide 25 Anion Gap 9 BUN 30.2 H Creatinine 1.7 H Est GFR (CKD-EPI)AfAm 49.35 Est GFR (CKD-EPI)NonAf 42.58 Random Glucose 200 H Calcium 9.1 Total Bilirubin 0.4 AST 19 ALT 22 Alkaline Phosphatase 77 C-Reactive Protein 3.1 H Total Protein 7.5 Albumin 3.4 Current Medications Generic Name Dose Route Start Last Admin Trade Name Freq PRN Reason Stop Dose Admin Ascorbic Acid 500 mg 02/15/19 10:00 Vitamin C - PO DAILY [facility] Aspirin 81 mg 02/15/19 10:00 Ecotrin - PO DAILY [facility] Atorvastatin Calcium 40 mg 02/14/19 22:00 Lipitor - PO HS [facility] Clopidogrel Bisulfate 75 mg 02/15/19 10:00 Plavix - PO DAILY [facility] Ferrous Sulfate 325 mg 02/15/19 10:00 Feosol - PO DAILY [facility] Gabapentin 300 mg 02/14/19 22:00 Neurontin - PO TID [facility] Heparin Sodium (Porcine) 5,000 unit 02/14/19 22:00 Heparin - SQ TID [facility] Vancomycin HCl 1,000 mg in 250 mls @ 166.667 mls/hr 02/14/19 17:47 Vancomycin (Pre-Docked) IVPB 02/14/19 19:16 ONCE ONE Protocol Insulin Aspart 1 vial 02/14/19 22:00 Novolog Vial Sliding Scale - SQ ACHS [facility] Protocol Losartan Potassium 25 mg 02/15/19 10:00 Cozaar - PO DAILY [facility] Metoprolol Succinate 25 mg 02/15/19 10:00 Toprol Xl - PO DAILY [facility] Pantoprazole Sodium 40 mg 02/15/19 10:00 Protonix - PO DAILY [facility] Sodium Bicarbonate 650 mg 02/14/19 22:00 Sodium Bicarbonate - PO TID [facility] Torsemide 60 mg 02/15/19 10:00 Demadex - PO DAILY [facility] ASSESSMENT/PLAN: 63 M w/ morbid obesity, CKD 3, T2DM , peripheral neuropathy, PVD s/p R TMA, CAD s/p stents, HTN, HLD, presents s/p L 4th toe debridement in wound clinic, patient admitted to our service to receive IV abx to cover for L 4th toe cellulitis. L 4th toe chronic ulcer s/p debridement received IV zosyn in ED, will add 1 dose of Vancomycin 1g in view of MRSA history cont. leg elevation, pain control, wound care referral contact ID control and remove MRSA warning as pt. MRSA was regarding his R 1st toe which is now amputated Vascular consult: Dr. Page ID consult: Dr. Olivas CKD 3 restart ARB, avoid nephrotoxins restart Ferrous sulfate, supplement w/ Vit C monitor chem (after dose of Vancomycin) follows with Dr. Reynoso, will trend CRE if continues to rise consult renal and send MIREYA workup T2DM uncontrolled, complicated by peripheral neuropathy ISS for covergae restart insulin regimen, strict glycemic control CAD s/p stents restart BB, DAPT, statin, ARB no signs of CP/SOB or fluid overload BRITTNEY on CPAP restart CPAP overnight keep O2 >90% HTN restart home BP meds HLD restart statin DVT ppx: Heparin SC GI ppx: PPI BID Admit to Med-Surg Family Medical History Family History: Denies Visit type - Emergency Visit Emergency Visit: Yes ED Registration Date: 02/14/19 Care time: The patient presented to the Emergency Department on the above date and was hospitalized for further evaluation of their emergent condition. - New Patient This patient is new to me today: Yes Date on this admission: 02/14/19 - Critical Care Critical Care patient: No
[2019-02-14] MEDS ORDERED: INSULIN SLIDING SCALE (NOVOLOG) 1 VIAL SQ SCH ×2 (22:00)
[2019-02-14] MEDS ORDERED: INSULIN (NOVOLOG) ASPART 100 UNITS/ML 10ML VIAL ONE (22:29)
[2019-02-14] MEDS: ATORVASTATIN CA 40 MG TABLET (FP) PO SCH (22:30)
[2019-02-14] MEDS: SODIUM BICARBONATE 650 MG TABLET PO SCH ×2 (22:30→22:49)
[2019-02-14] MEDS: INSULIN (LEVEMIR) 100 UNITS/ML UNITS SQ SCH (22:30)
[2019-02-14] MEDS: GABAPENTIN 300 MG CAPSULE PO SCH (22:30)
[2019-02-14] MEDS: HEPARIN NA (PORCINE) 5,000 UNITS/ML 1ML VIAL SQ SCH (22:30)
[2019-02-14] MEDS: INSULIN SLIDING SCALE (NOVOLOG) 1 VIAL SQ SCH (22:45)
[2019-02-15] MEDS: GABAPENTIN 300 MG CAPSULE PO SCH ×3 (06:06→21:17)
[2019-02-15] MEDS: SODIUM BICARBONATE 650 MG TABLET PO SCH ×3 (06:06→21:17)
[2019-02-15] MEDS: HEPARIN NA (PORCINE) 5,000 UNITS/ML 1ML VIAL SQ SCH ×3 (06:06→21:17)
[2019-02-15] MEDS: INSULIN (LEVEMIR) 100 UNITS/ML UNITS SQ SCH ×2 (06:07→21:17)
[2019-02-15] MEDS: INSULIN SLIDING SCALE (NOVOLOG) 1 VIAL SQ SCH ×4 (06:14→21:17)
[2019-02-15 08:59] LABS: BASO % 0.7 % (0-2.0); EOS % 5.8 % (0-4.5); HEMATOCRIT 43.8 % (35.4-49); HEMOGLOBIN 14.3 GM/dL (11.7-16.9); LYMPH % 16.5 % (8-40); MCH 26.4 pg (25.7-33.7); MCHC 32.8 g/dl (32.0-35.9); MEAN CELL VOLUME 80.7 fl (80-96); MEAN PLT VOLUME 8.5 fl (7.5-11.1); PLATELET COUNT 328 K/MM3 (134-434); RBC 5.43 M/mm3 (4.00-5.60); RDW 17.1 % (11.9-15.9); WHITE BLOOD COUNT 7.3 K/mm3 (4.0-10.0)
[2019-02-15] MEDS ORDERED: PT OWN MED DRAWER 7, Y5N ONE (09:22)
[2019-02-15] MEDS: LOSARTAN POTASSIUM 25 MG TABLET PO SCH (09:29)
[2019-02-15] MEDS: ASPIRIN COATED 81 MG TABLET.EC PO SCH (09:30)
[2019-02-15] MEDS: TORSEMIDE 20 MG TABLET (FP) PO SCH (09:30)
[2019-02-15] MEDS: PANTOPRAZOLE 40 MG TABLET PO SCH (09:31)
[2019-02-15] MEDS: ASCORBIC ACID 500 MG TABLET (FP) PO SCH (09:31)
[2019-02-15] MEDS: CLOPIDOGREL BISULFATE 75 MG TABLET (FP) PO SCH (09:31)
[2019-02-15] MEDS: FERROUS SO4 325 MG TABLET (FP) PO SCH (09:31)
[2019-02-15] MEDS: metoPROLOL SUCCINATE 25 MG TAB.SR.24H (FP) PO SCH (09:31)
[2019-02-15 09:39] LABS: BLOOD UREA NITROGEN 27.1 mg/dL (7-18); CALCIUM 9.1 mg/dL (8.5-10.1); CREATININE 1.7 mg/dL (0.55-1.3); POTASSIUM 3.7 mmol/L (3.5-5.1)
[2019-02-15] MEDS ORDERED: INSULIN (NOVOLOG) ASPART 100 UNITS/ML 10ML VIAL ONE (11:11)
--- NOTE | 2019-02-15 13:50 | EKG ---
Test Reason : Blood Pressure : / mmHG Vent. Rate : 082 BPM Atrial Rate : 082 BPM P-R Int : 318 ms QRS Dur : 148 ms QT Int : 400 ms P-R-T Axes : 046 090 002 degrees QTc Int : 467 ms SINUS RHYTHM WITH 1ST DEGREE A-V BLOCK RIGHT BUNDLE BRANCH BLOCK POSSIBLE INFERIOR INFARCT , AGE UNDETERMINED CANNOT RULE OUT ANTEROSEPTAL INFARCT ABNORMAL ECG Confirmed by KIM EPSTEIN MD ([id number]) on 02/15/2019 1:50:03 PM Referred By: Confirmed By:KIM EPSTEIN MD
--- NOTE | 2019-02-15 15:26 | PN ---
Progress Note (short form) - Note Progress Note: ID consult dictated imp/reccd 63 yo obese man with DM (poorly controlled), CAD and right foot TMA 2016, CKD now with callous on lateral aspect of his foot for months- per patient debrided at wound care by surgery and advised admission patients reports calluous on the side of his left foot for months- REFUSES MRI- ALTHOUGH I EXPLAINED THE MRI WILL HELP DETERMINE WHETHER HE HAS A BONE INFECTION WILL GET XRAY OF FOOT VANCO/ZOSYN esr/crp will speak to surgery ckd- will adjust antibiotics for renal function poorly controlled diabetic CAD with recent stents morbid obesity with bmi over 40 Problem List - Problems (1) Diabetic foot ulcer Code(s): E11.621 - TYPE 2 DIABETES MELLITUS WITH FOOT ULCER; L97.509 - NON- PRESSURE CHRONIC ULCER OTH PRT UNSP FOOT W UNSP SEVERITY (2) CAD (coronary artery disease) Code(s): I25.10 - ATHSCL HEART DISEASE OF [place] CORONARY ARTERY W/O ANG PCTRS Qualifiers: Coronary Disease-Associated Artery/Lesion type: [place] artery [place] vs. 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
--- NOTE | 2019-02-15 16:24 | PN ---
Progress Note (short form) - Note Progress Note: Hospitalist Medicine Agitated. "I hate sitting like this, but I have to because of my foot. Medicines are useless." Requesting NC 02. Explained pt does not need as sat well Vitals 02/15/19 14:31 Temperature 97.5 F L Pulse Rate 75 Respiratory 19 Rate Blood Pressure 146/81 Physical Exam general: agitated, however in NAD. heent: NCAT, PERRLA neck: supple cardio: distant b/c body habitus. s1, s2 rrr. no r/m/g pulm: CTA b/l. abdomen: morbidly obese, NT, ND LE: L 5th toe - w/ dark, ?gangrenous callous. no drainage . denies TTP neuro: creative developer 2-12 grossly intact. Laboratory Tests 02/15/19 02/15/19 02/15/19 08:15 08:15 08:15 WBC 7.3 Hgb 14.3 Hct 43.8 Plt Count 328 Sodium 139 Potassium 3.7 Chloride 104 Carbon Dioxide 27 Anion Gap 8 BUN 27.1 H Creatinine 1.7 H POC Glucometer Hemoglobin A1c % 8.2 H Triglycerides 134 Cholesterol 104 Total LDL Cholesterol 46 HDL Cholesterol 39 L Vitamin B12 461 TSH 1.47 02/15/19 11:12 WBC Hgb Hct Plt Count Sodium Potassium Chloride Carbon Dioxide Anion Gap BUN Creatinine POC Glucometer 249 Hemoglobin A1c % Triglycerides Cholesterol Total LDL Cholesterol HDL Cholesterol Vitamin B12 TSH Imaging 02/14/19: CXR: degenerative changes, wedging. no acute process 02/14/19: EKG: NSR, 1st degree AV block NE 318ms, qtc 467ms Micro 02/14/19: MRSA nare screen - pending Assessment/Plan 63 M h/o CAD s/p stents, CKD 3, HTN, HLD, chronic systolic HF, peripheral neuropathy,T2DM, morbid obesity, R TMA, BRITTNEY on CPAP, chronic LLE ulcer requiring debridement 2 days ago presents to ED for IV abx. #Chronic LLE ulcer s/p debridement L 5th toe #r/o osteomyelitis -currently afebrile, w/o leukocytosis -per pt, will have wound changes by vascular -c/w vanc, zosyn (Day 2) -f/u ESR, CRP -f/u foot XR. pt refused foot MRI. -f/u MRSA screen. no drainage for cx from wound -ID: Dr. Olivas -Vas: Dr. Ba #chronic systolic HF -c/w torsemide -currently euvolemic -last ECHO 04/2018: normal lvEF #CAD s/p 3 stents -c/w asa, plavix #HTN -c/w metoprolol, losartan #HLD -c/w lipitor #BRITTNEY -c/w CPAP -not requiring 02 currently #morbid obesity -dietary consult requested #T2DM -c/w ISS, BGM ACHS #F/E/N not requiring IVF at this time; also w/ CHF avoid continue to follow lytes diabetic/sodium controlled diet #PPX DVT: on hep 5k sq tid #Dispo monitoring on med-surg on IV abx <Clementina Nassar - Last Filed: 02/15/19 16:32> - Note Progress Note: Seen and examined. Please see resident note for further historical information. I personally verified all the tena historical formation and exam findings. Personally in pretted imaging and diagnostics and reviewed appropriate results. I reviewed all labs and vital signs are per the resident note and EMR as documented. I agree with the above assessment and plan unless supplemented by myself and the following. <Ute Germain - Last Filed: 02/15/19 17:47>
[2019-02-15] MEDS ORDERED: DEXTROSE 5%-WATER - 50 ML IVPB ONE (16:34)
[2019-02-15] MEDS ORDERED: PIPERACILLIN/TAZOBACTAM 3.375 GM VIAL IVPB ONE (16:34)
[2019-02-15] MEDS: PIPERACILLIN/TAZOB 3.375 GM 3.375 GM in DEXTROSE 5%-WATER - 50 ML IVPB SCH ×2 (16:51→17:45)
[2019-02-15] MEDS: VANCOMYCIN HCL 1,250 MG in DEXTROSE 5%-WATER - 250 ML IVPB SCH (17:45)
--- NOTE | 2019-02-15 18:30 | CONS ---
DATE OF CONSULTATION: 02/15/2019 INFECTIOUS DISEASE CONSULTATION CONSULTATION REQUESTED BY: Hospitalist Service HISTORY OF PRESENT ILLNESS: The patient is a 63-year-old man with a history of poorly controlled diabetes, obesity and coronary artery disease status post recent stents who has a remote history of right transmetatarsal amputation. He has now had a callus and trouble with his left foot for the last several months. He reports that at the time of his stent procedures, which took place in the fall, he developed some erythema of the dorsum of his left foot. He then developed a callus on this. He developed a blister on the side of his left foot. He has no idea how long he has had it - he thinks several months. It finally broke. He saw Dr. Ba before [place] and was advised about wound changes and followup. When he was seen on Monday by Dr. Ba, his wound was apparently debrided at the bedside and Dr. Ba advised admission. The patient reports that he wears sneakers to ambulate. He has a splint for his foot with the transmetatarsal amputation. He denies any fever or chills. He notes that he has also had some erythema of the anterior woods on the left for the last several months. He reports that he has pain with weightbearing. PAST MEDICAL HISTORY: Notable for coronary artery disease, congestive heart failure, hypertension, hyperlipidemia, diabetes and obesity. PAST SURGICAL HISTORY: He has had corneal transplants x3. He had a right foot partial amputation in 2016. He had a transmetatarsal amputation . He had multiple stents done at [facility]. He is followed by Dr. Alexander, Dr. Ba and Dr. Burrell. 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 He lives at home with his family. He stopped smoking in 2016. REVIEW OF SYSTEMS: He reports that he otherwise feels well and has no complaints. He denies fevers or chills. PHYSICAL EXAMINATION: General: He is awake and alert. Vital Signs: Temperature 97.4, pulse 75, blood pressure 146/81. Weight 125 kg. HEENT: Normocephalic. His eyes are anicteric. Neck: Supple. Lungs: Clear to auscultation. Heart: Regular rate and rhythm. Abdomen: Soft. Extremities: His right transmetatarsal amputation is well healed. On the back of his right calf, he has a little erythema. On the left leg, the anterior woods has an area of erythema and the left foot dorsum is mildly erythematous. He has a callus and has erythema on the plantar surface of the foot as well. LABORATORY DATA: Notable for a white count of 7.3, hemoglobin 14.3, platelets are 328. BUN and creatinine are 27 and 1.7. His hemoglobin A1c is 8.2. His CRP is 3.1. No sed rate was sent. He has a prior history of MRSA and has had a nares screen sent. He had a chest x-ray done in the emergency room which shows no acute infiltrate. SUMMARY: 1. This is a 63-year-old man admitted with chronic left foot callus with some erythema of the dorsum of the foot for months. He refuses MRI although I explained this will help determine whether he has a bone infection. We will also get an x-ray of the foot as that does not seen to have been ordered. We will treat him with vancomycin and Zosyn at this time. We will check a sed rate and CRP and speak to surgery. 2. Diabetes, poorly controlled. Hemoglobin A1c is greater than 8. 3. Morbid obesity with a weight greater than 100 kg. His BMI is over 40. 4. Coronary artery disease status post recent stenting. EMMA MAC M.D. [id number]
[2019-02-15] MEDS: ATORVASTATIN CA 40 MG TABLET (FP) PO SCH (21:17)
[2019-02-16] MEDS ORDERED: DEXTROSE 5%-WATER - 50 ML IVPB ONE ×3 (01:08→17:00)
[2019-02-16] MEDS ORDERED: PIPERACILLIN/TAZOBACTAM 3.375 GM VIAL IVPB ONE ×3 (01:08→16:59)
[2019-02-16] MEDS: PIPERACILLIN/TAZOB 3.375 GM 3.375 GM in DEXTROSE 5%-WATER - 50 ML IVPB SCH ×3 (01:17→17:10)
[2019-02-16] MEDS: SODIUM BICARBONATE 650 MG TABLET PO SCH ×3 (06:10→21:42)
[2019-02-16] MEDS: HEPARIN NA (PORCINE) 5,000 UNITS/ML 1ML VIAL SQ SCH ×3 (06:10→21:44)
[2019-02-16] MEDS: GABAPENTIN 300 MG CAPSULE PO SCH ×3 (06:10→21:42)
[2019-02-16] MEDS: INSULIN SLIDING SCALE (NOVOLOG) 1 VIAL SQ SCH ×4 (06:14→21:43)
[2019-02-16] MEDS: INSULIN (LEVEMIR) 100 UNITS/ML UNITS SQ SCH ×2 (06:14→21:43)
[2019-02-16] MEDS ORDERED: INSULIN (NOVOLOG) ASPART 100 UNITS/ML 10ML VIAL ONE ×2 (06:30→21:38)
[2019-02-16 08:09] LABS: BASO % 0.6 % (0-2.0); EOS % 6.6 % (0-4.5); HEMATOCRIT 38.7 % (35.4-49); HEMOGLOBIN 12.9 GM/dL (11.7-16.9); LYMPH % 18.1 % (8-40); MCH 26.7 pg (25.7-33.7); MCHC 33.3 g/dl (32.0-35.9); MEAN CELL VOLUME 80.1 fl (80-96); MEAN PLT VOLUME 8.4 fl (7.5-11.1); NEUT % 66.7 % (42.8-82.8); PLATELET COUNT 251 K/MM3 (134-434); RBC 4.83 M/mm3 (4.00-5.60); RDW 16.3 % (11.9-15.9); WHITE BLOOD COUNT 5.9 K/mm3 (4.0-10.0)
[2019-02-16 08:37] LABS: BLOOD UREA NITROGEN 33.8 mg/dL (7-18); CALCIUM 8.7 mg/dL (8.5-10.1); CREATININE 1.8 mg/dL (0.55-1.3); MAGNESIUM 2.4 mg/dL (1.8-2.4); PHOSPHOROUS 3.6 mg/dL (2.5-4.9); POTASSIUM 3.4 mmol/L (3.5-5.1)
[2019-02-16] MEDS ORDERED: POTASSIUM CHLORIDE TABS 20 MEQ TABLET.ER (FP) PO ONE (08:39)
[2019-02-16] MEDS ORDERED: PT OWN MED DRAWER 7, Y5N ONE ×2 (08:52→17:00)
[2019-02-16] MEDS: FERROUS SO4 325 MG TABLET (FP) PO SCH (08:59)
[2019-02-16] MEDS: metoPROLOL SUCCINATE 25 MG TAB.SR.24H (FP) PO SCH (08:59)
[2019-02-16] MEDS: PANTOPRAZOLE 40 MG TABLET PO SCH (08:59)
[2019-02-16] MEDS: TORSEMIDE 20 MG TABLET (FP) PO SCH (08:59)
[2019-02-16] MEDS: CLOPIDOGREL BISULFATE 75 MG TABLET (FP) PO SCH (08:59)
[2019-02-16] MEDS: ASCORBIC ACID 500 MG TABLET (FP) PO SCH (08:59)
[2019-02-16] MEDS: LOSARTAN POTASSIUM 25 MG TABLET PO SCH (08:59)
[2019-02-16] MEDS: ASPIRIN COATED 81 MG TABLET.EC PO SCH (09:00)
[2019-02-16] MEDS: MUPIROCIN 2% TOPICAL OINTMENT 22 GM TUBE TP SCH (09:00)
--- NOTE | 2019-02-16 12:34 | PN ---
Progress Note (short form) - Note Progress Note: No Complaints, wound bleeding earlier Dry necrotic eschar on left plantar foot. No erythema. I will schedule for OR debridement Monday. Continue IV antibiotics.
--- NOTE | 2019-02-16 15:58 | PN ---
Progress Note, Physician Chief Complaint: foot pain History of Present Illness: seen and examined at bedside. no complaints, feeling well, want to go home. - Current Medication List Current Medications: Active Medications Ascorbic Acid (Vitamin C -) 500 mg PO DAILY [facility] Last Admin: 02/16/19 08:59 Dose: 500 mg Aspirin (Ecotrin -) 81 mg PO DAILY [facility] Last Admin: 02/16/19 09:00 Dose: 81 mg Atorvastatin Calcium (Lipitor -) 40 mg PO HS [facility] Last Admin: 02/15/19 21:17 Dose: 40 mg Clopidogrel Bisulfate (Plavix -) 75 mg PO DAILY [facility] Last Admin: 02/16/19 08:59 Dose: 75 mg Ferrous Sulfate (Feosol -) 325 mg PO DAILY [facility] Last Admin: 02/16/19 08:59 Dose: 325 mg Gabapentin (Neurontin -) 300 mg PO TID [facility] Last Admin: 02/16/19 14:47 Dose: 300 mg Heparin Sodium (Porcine) (Heparin -) 5,000 unit SQ TID [facility] Last Admin: 02/16/19 14:46 Dose: 5,000 unit Piperacillin Sod/Tazobactam (Sod 3.375 gm/ Dextrose) 50 mls @ 100 mls/hr IVPB Q8H-IV [facility]; Protocol Last Admin: 02/16/19 09:00 Dose: 100 mls/hr Vancomycin HCl 1,250 mg/ (Dextrose) 250 mls @ 250 mls/2 hr IVPB DAILY@1800 [facility] ; Protocol Last Admin: 02/15/19 17:45 Dose: 250 mls/2 hr Insulin Aspart (Novolog Vial Sliding Scale -) 1 vial SQ ACHS [facility]; Protocol Last Admin: 02/16/19 10:59 Dose: 4 units Insulin Detemir (Levemir Vial) 20 units SQ BID@0700,2200 [facility] Last Admin: 02/16/19 06:14 Dose: 20 units Losartan Potassium (Cozaar -) 25 mg PO DAILY [facility] Last Admin: 02/16/19 08:59 Dose: 25 mg Metoprolol Succinate (Toprol Xl -) 25 mg PO DAILY [facility] Last Admin: 02/16/19 08:59 Dose: 25 mg Mupirocin (Bactroban 2% Ointment -) 1 applic TP DAILY [facility] Last Admin: 02/16/19 09:00 Dose: 1 applic Pantoprazole Sodium (Protonix -) 40 mg PO DAILY [facility] Last Admin: 02/16/19 08:59 Dose: 40 mg Sodium Bicarbonate (Sodium Bicarbonate -) 650 mg PO TID [facility] Last Admin: 02/16/19 14:46 Dose: 650 mg Torsemide (Demadex -) 60 mg PO DAILY [facility] Last Admin: 02/16/19 08:59 Dose: 60 mg - Objective Vital Signs: Vital Signs Temperature 97.7 F 02/16/19 14:09 Pulse Rate 68 02/16/19 14:09 Respiratory Rate 19 02/16/19 14:09 Blood Pressure 125/73 02/16/19 14:09 O2 Sat by Pulse Oximetry (%) 95 02/16/19 09:00 Constitutional: Yes: Well Nourished, No Distress, Calm Cardiovascular: Yes: WNL, Regular Rate and Rhythm Respiratory: Yes: WNL, Regular, CTA Bilaterally Gastrointestinal: Yes: WNL, Normal Bowel Sounds, Soft, Abdomen, Obese Musculoskeletal: Yes: WNL Extremities: Yes: Other (left foot wrapped right TMA) Edema: No Labs: CBC, BMP 02/16/19 07:35 02/16/19 07:35 Problem List - Problems (1) CKD (chronic kidney disease) Code(s): N18.9 - CHRONIC KIDNEY DISEASE, UNSPECIFIED (2) Diabetic foot ulcer Code(s): E11.621 - TYPE 2 DIABETES MELLITUS WITH FOOT ULCER; L97.509 - NON- PRESSURE CHRONIC ULCER OTH PRT UNSP FOOT W UNSP SEVERITY (3) Morbid obesity with BMI of 40.0-44.9, adult Code(s): E66.01 - [place]OR[place] (SEVERE) OBESITY DUE TO EXCESS CALORIES; Z68.41 - BODY MASS INDEX (BMI) 40.0-44.9, ADULT (4) Poorly controlled diabetes mellitus Code(s): E11.65 - TYPE 2 DIABETES MELLITUS WITH HYPERGLYCEMIA (5) CHF (congestive heart failure) Code(s): I50.9 - HEART FAILURE, UNSPECIFIED (6) Diabetes mellitus Code(s): E11.9 - TYPE 2 DIABETES [place] WITHOUT COMPLICATIONS Qualifiers: Diabetes mellitus type: type 2 Diabetes mellitus assisted insulin use: with assisted use Diabetes mellitus complication status: with kidney complications Diabetes mellitus complication detail: with chronic kidney disease Chronic kidney disease stage: stage 3 (moderate) Qualified Code(s): E11.22 - Type 2 diabetes mellitus with diabetic chronic kidney disease; N18.3 - Chronic kidney disease, stage 3 (moderate); Z79.4 - chain tender (current) use of insulin (7) Hyperlipidemia Code(s): E78.5 - HYPERLIPIDEMIA, UNSPECIFIED Qualifiers: Hyperlipidemia type: unspecified Qualified Code(s): E78.5 - Hyperlipidemia , unspecified (8) Hypertension Code(s): I10 - ESSENTIAL (PRIMARY) HYPERTENSION Qualifiers: Hypertension type: essential hypertension Qualified Code(s): I10 - Essential (primary) hypertension Assessment/Plan Assessment/Plan: 63 M h/o CAD s/p stents, CKD 3, HTN, HLD, chronic systolic HF, peripheral neuropathy,T2DM, morbid obesity, R TMA, BRITTNEY on CPAP, chronic LLE ulcer requiring debridement 2 days ago presents to ED for IV abx. Chronic LLE ulcer s/p debridement L 5th toe Systolic CHF, chronic CAD sp PCI HTN HLD BRITTNEY Morbid Obesity DM2 Plan: -foot xray noted, patient refuses MRI -plan for debridement Monday -c/w iv abx -f/u cultures -vascular and ID following
[2019-02-16] MEDS: VANCOMYCIN HCL 1,250 MG in DEXTROSE 5%-WATER - 250 ML IVPB SCH (17:09)
[2019-02-16] MEDS: ATORVASTATIN CA 40 MG TABLET (FP) PO SCH (21:42)
[2019-02-17] MEDS ORDERED: DEXTROSE 5%-WATER - 50 ML IVPB ONE ×3 (00:39→16:49)
[2019-02-17] MEDS ORDERED: PIPERACILLIN/TAZOBACTAM 3.375 GM VIAL IVPB ONE ×3 (00:39→16:49)
[2019-02-17] MEDS: PIPERACILLIN/TAZOB 3.375 GM 3.375 GM in DEXTROSE 5%-WATER - 50 ML IVPB SCH ×3 (01:31→17:00)
[2019-02-17] MEDS: HEPARIN NA (PORCINE) 5,000 UNITS/ML 1ML VIAL SQ SCH ×3 (05:48→21:33)
[2019-02-17] MEDS: GABAPENTIN 300 MG CAPSULE PO SCH ×3 (05:48→21:33)
[2019-02-17] MEDS: SODIUM BICARBONATE 650 MG TABLET PO SCH ×3 (05:48→21:32)
[2019-02-17] MEDS ORDERED: INSULIN (NOVOLOG) ASPART 100 UNITS/ML 10ML VIAL ONE ×2 (06:45→11:06)
[2019-02-17] MEDS: INSULIN SLIDING SCALE (NOVOLOG) 1 VIAL SQ SCH ×4 (07:17→22:11)
[2019-02-17] MEDS: INSULIN (LEVEMIR) 100 UNITS/ML UNITS SQ SCH ×2 (07:17→21:33)
[2019-02-17 09:06] LABS: BASO % 0.9 % (0-2.0); EOS % 6.9 % (0-4.5); HEMATOCRIT 41.7 % (35.4-49); HEMOGLOBIN 13.7 GM/dL (11.7-16.9); LYMPH % 18.9 % (8-40); MCH 26.7 pg (25.7-33.7); MCHC 32.7 g/dl (32.0-35.9); MEAN CELL VOLUME 81.7 fl (80-96); MEAN PLT VOLUME 8.8 fl (7.5-11.1); MONO % 8.1 % (3.8-10.2); NEUT % 65.2 % (42.8-82.8); PLATELET COUNT 269 K/MM3 (134-434); RBC 5.11 M/mm3 (4.00-5.60); RDW 16.5 % (11.9-15.9); WHITE BLOOD COUNT 7.5 K/mm3 (4.0-10.0)
[2019-02-17 09:24] LABS: BLOOD UREA NITROGEN 36.5 mg/dL (7-18); CALCIUM 8.9 mg/dL (8.5-10.1); CREATININE 1.9 mg/dL (0.55-1.3); POTASSIUM 4.1 mmol/L (3.5-5.1)
[2019-02-17] MEDS: TORSEMIDE 20 MG TABLET (FP) PO SCH (09:37)
[2019-02-17] MEDS: PANTOPRAZOLE 40 MG TABLET PO SCH (09:37)
[2019-02-17] MEDS: ASPIRIN COATED 81 MG TABLET.EC PO SCH (09:37)
[2019-02-17] MEDS: LOSARTAN POTASSIUM 25 MG TABLET PO SCH (09:37)
[2019-02-17] MEDS: CLOPIDOGREL BISULFATE 75 MG TABLET (FP) PO SCH (09:37)
[2019-02-17] MEDS: FERROUS SO4 325 MG TABLET (FP) PO SCH (09:37)
[2019-02-17] MEDS: ASCORBIC ACID 500 MG TABLET (FP) PO SCH (09:37)
[2019-02-17] MEDS: metoPROLOL SUCCINATE 25 MG TAB.SR.24H (FP) PO SCH (09:37)
[2019-02-17] MEDS: MUPIROCIN 2% TOPICAL OINTMENT 22 GM TUBE TP SCH (09:37)
[2019-02-17 13:51] VITALS: BMI 41.6
--- NOTE | 2019-02-17 15:32 | PN ---
Progress Note, Physician Chief Complaint: foot pain History of Present Illness: no acute events overnight, feeling well - Current Medication List Current Medications: Active Medications Ascorbic Acid (Vitamin C -) 500 mg PO DAILY [facility] Last Admin: 02/17/19 09:37 Dose: 500 mg Aspirin (Ecotrin -) 81 mg PO DAILY [facility] Last Admin: 02/17/19 09:37 Dose: 81 mg Atorvastatin Calcium (Lipitor -) 40 mg PO HS [facility] Last Admin: 02/16/19 21:42 Dose: 40 mg Clopidogrel Bisulfate (Plavix -) 75 mg PO DAILY [facility] Last Admin: 02/17/19 09:37 Dose: 75 mg Ferrous Sulfate (Feosol -) 325 mg PO DAILY [facility] Last Admin: 02/17/19 09:37 Dose: 325 mg Gabapentin (Neurontin -) 300 mg PO TID [facility] Last Admin: 02/17/19 13:07 Dose: 300 mg Heparin Sodium (Porcine) (Heparin -) 5,000 unit SQ TID [facility] Last Admin: 02/17/19 13:07 Dose: 5,000 unit Piperacillin Sod/Tazobactam (Sod 3.375 gm/ Dextrose) 50 mls @ 100 mls/hr IVPB Q8H-IV [facility]; Protocol Last Admin: 02/17/19 10:15 Dose: 100 mls/hr Vancomycin HCl 1,250 mg/ (Dextrose) 250 mls @ 250 mls/2 hr IVPB DAILY@1800 [facility] ; Protocol Last Admin: 02/16/19 17:09 Dose: 250 mls/2 hr Insulin Aspart (Novolog Vial Sliding Scale -) 1 vial SQ ACHS [facility]; Protocol Last Admin: 02/17/19 11:09 Dose: 6 units Insulin Detemir (Levemir Vial) 20 units SQ BID@0700,2200 [facility] Last Admin: 02/17/19 07:17 Dose: 20 units Losartan Potassium (Cozaar -) 25 mg PO DAILY [facility] Last Admin: 02/17/19 09:37 Dose: 25 mg Metoprolol Succinate (Toprol Xl -) 25 mg PO DAILY [facility] Last Admin: 02/17/19 09:37 Dose: 25 mg Mupirocin (Bactroban 2% Ointment -) 1 applic TP DAILY [facility] Last Admin: 02/17/19 09:37 Dose: 1 applic Pantoprazole Sodium (Protonix -) 40 mg PO DAILY [facility] Last Admin: 02/17/19 09:37 Dose: 40 mg Sodium Bicarbonate (Sodium Bicarbonate -) 650 mg PO TID [facility] Last Admin: 02/17/19 15:13 Dose: 650 mg Torsemide (Demadex -) 60 mg PO DAILY [facility] Last Admin: 02/17/19 09:37 Dose: 60 mg - Objective Vital Signs: Vital Signs Temperature 98 F 02/17/19 10:00 Pulse Rate 70 02/17/19 10:00 Respiratory Rate 18 02/17/19 10:00 Blood Pressure 130/90 02/17/19 10:00 O2 Sat by Pulse Oximetry (%) 95 02/17/19 09:00 Constitutional: Yes: Well Nourished, No Distress, Calm Cardiovascular: Yes: WNL, Regular Rate and Rhythm Respiratory: Yes: WNL, Regular, CTA Bilaterally Gastrointestinal: Yes: WNL, Normal Bowel Sounds, Soft Musculoskeletal: Yes: WNL Extremities: Yes: Other (left foot wrapped, right TMA) Edema: No Labs: CBC, BMP 02/17/19 08:47 02/17/19 08:47 Problem List - Problems (1) CKD (chronic kidney disease) Code(s): N18.9 - CHRONIC KIDNEY DISEASE, UNSPECIFIED (2) Diabetic foot ulcer Code(s): E11.621 - TYPE 2 DIABETES MELLITUS WITH FOOT ULCER; L97.509 - NON- PRESSURE CHRONIC ULCER OTH PRT UNSP FOOT W UNSP SEVERITY (3) Morbid obesity with BMI of 40.0-44.9, adult Code(s): E66.01 - MORBID (SEVERE) OBESITY DUE TO EXCESS CALORIES; Z68.41 - BODY MASS INDEX (BMI) 40.0-44.9, ADULT (4) Poorly controlled diabetes mellitus Code(s): E11.65 - TYPE 2 DIABETES MELLITUS WITH HYPERGLYCEMIA (5) CHF (congestive heart failure) Code(s): I50.9 - HEART FAILURE, UNSPECIFIED (6) Diabetes mellitus Code(s): E11.9 - TYPE 2 DIABETES [place]LL[place] WITHOUT COMPLICATIONS Qualifiers: Diabetes mellitus type: type 2 Diabetes mellitus intermediate teacher insulin use: with nursing home use Diabetes mellitus complication status: with kidney complications Diabetes mellitus complication detail: with chronic kidney disease Chronic kidney disease stage: stage 3 (moderate) Qualified Code(s): E11.22 - Type 2 diabetes mellitus with diabetic chronic kidney disease; N18.3 - Chronic kidney disease, stage 3 (moderate); Z79.4 - custodial (current) use of insulin (7) Hyperlipidemia Code(s): E78.5 - HYPERLIPIDEMIA, UNSPECIFIED Qualifiers: Hyperlipidemia type: unspecified Qualified Code(s): E78.5 - Hyperlipidemia , unspecified (8) Hypertension Code(s): I10 - ESSENTIAL (PRIMARY) HYPERTENSION Qualifiers: Hypertension type: essential hypertension Qualified Code(s): I10 - Essential (primary) hypertension Assessment/Plan 63 M h/o CAD s/p stents, CKD 3, HTN, HLD, chronic systolic HF, peripheral neuropathy,T2DM, morbid obesity, R TMA, BRITTNEY on CPAP, chronic LLE ulcer requiring debridement 2 days ago presents to ED for IV abx. Chronic LLE ulcer s/p debridement L 5th toe Systolic CHF, chronic CAD sp PCI HTN HLD BRITTNEY Morbid Obesity DM2 Plan: -plan for debridement Monday -c/w iv abx -f/u cultures -vascular and ID following
[2019-02-17] MEDS ORDERED: PT OWN MED DRAWER 7, Y5N ONE (18:03)
[2019-02-17] MEDS: VANCOMYCIN HCL 1,250 MG in DEXTROSE 5%-WATER - 250 ML IVPB SCH (18:12)
[2019-02-17] MEDS: ATORVASTATIN CA 40 MG TABLET (FP) PO SCH (21:32)
[2019-02-18] MEDS ORDERED: PIPERACILLIN/TAZOBACTAM 3.375 GM VIAL IVPB ONE ×3 (02:47→17:48)
[2019-02-18] MEDS ORDERED: DEXTROSE 5%-WATER - 50 ML IVPB ONE ×3 (02:47→17:48)
[2019-02-18] MEDS: PIPERACILLIN/TAZOB 3.375 GM 3.375 GM in DEXTROSE 5%-WATER - 50 ML IVPB SCH ×3 (02:59→18:04)
[2019-02-18] MEDS: HEPARIN NA (PORCINE) 5,000 UNITS/ML 1ML VIAL SQ SCH ×3 (05:34→23:02)
[2019-02-18] MEDS: GABAPENTIN 300 MG CAPSULE PO SCH ×3 (07:16→22:57)
[2019-02-18] MEDS: SODIUM BICARBONATE 650 MG TABLET PO SCH ×3 (07:17→22:58)
[2019-02-18] MEDS: INSULIN (LEVEMIR) 100 UNITS/ML UNITS SQ SCH ×2 (07:17→22:55)
[2019-02-18] MEDS: INSULIN SLIDING SCALE (NOVOLOG) 1 VIAL SQ SCH ×4 (07:18→22:59)
[2019-02-18] MEDS: TORSEMIDE 20 MG TABLET (FP) PO SCH (09:07)
[2019-02-18] MEDS: LOSARTAN POTASSIUM 25 MG TABLET PO SCH (09:07)
[2019-02-18] MEDS: metoPROLOL SUCCINATE 25 MG TAB.SR.24H (FP) PO SCH (09:08)
[2019-02-18] MEDS: ASPIRIN COATED 81 MG TABLET.EC PO SCH (09:08)
[2019-02-18] MEDS: ASCORBIC ACID 500 MG TABLET (FP) PO SCH (09:08)
[2019-02-18] MEDS: PANTOPRAZOLE 40 MG TABLET PO SCH (09:08)
[2019-02-18] MEDS: CLOPIDOGREL BISULFATE 75 MG TABLET (FP) PO SCH (09:08)
[2019-02-18] MEDS: FERROUS SO4 325 MG TABLET (FP) PO SCH (09:08)
[2019-02-18] MEDS: MUPIROCIN 2% TOPICAL OINTMENT 22 GM TUBE TP SCH (10:49)
[2019-02-18] MEDS ORDERED: INSULIN (NOVOLOG) ASPART 100 UNITS/ML 10ML VIAL ONE (10:56)
[2019-02-18] MEDS ORDERED: LIDOCAINE HCL 1%, 10 MG/ML (20ML VIAL) ONE (11:42)
[2019-02-18] MEDS ORDERED: MIDAZOLAM HCL 2 MG/2 ML SINGLE DOSE VIAL ONE (12:38)
[2019-02-18] MEDS ORDERED: LIDOCAINE HCL 1%, 10 MG/ML (20ML VIAL) INF ONE (12:47)
--- NOTE | 2019-02-18 13:12 | OP ---
Operative Note - Note: Operative Date: 02/18/19 Pre-Operative Diagnosis: Diabetic wound left foot Operation: Excisional debridement of skin, subQ and bone left foot Findings: Necrotic skin and SubQ with exposed 5th metatarsal head Post-Operative Diagnosis: Same as Pre-op Surgeon: Paulo Ba Anesthesiologist/STREET ENGINEER: Khushboo Saucedo MD Anesthesia: Fractional Specimens Removed: Skin, SubQ, bone Estimated Blood Loss (mls): 30
[2019-02-18 17:38] LABS: BASO % 0.5 % (0-2.0); EOS % 5.6 % (0-4.5); HEMATOCRIT 41.1 % (35.4-49); HEMOGLOBIN 13.8 GM/dL (11.7-16.9); LYMPH % 14.6 % (8-40); MCH 27.1 pg (25.7-33.7); MCHC 33.6 g/dl (32.0-35.9); MEAN CELL VOLUME 80.7 fl (80-96); MEAN PLT VOLUME 9.1 fl (7.5-11.1); MONO % 5.9 % (3.8-10.2); NEUT % 73.4 % (42.8-82.8); PLATELET COUNT 283 K/MM3 (134-434); RDW 16.7 % (11.9-15.9); WHITE BLOOD COUNT 6.3 K/mm3 (4.0-10.0)
[2019-02-18 18:04] LABS: CREATININE 1.9 mg/dL (0.55-1.3); POTASSIUM 3.9 mmol/L (3.5-5.1)
[2019-02-18] MEDS: VANCOMYCIN HCL 1,250 MG in DEXTROSE 5%-WATER - 250 ML IVPB SCH (18:05)
--- NOTE | 2019-02-18 18:06 | PN ---
Physical Exam: SUBJECTIVE: Patient seen and examined. He has no complaints. He underwent excisional debridement of his left foot wound today. OBJECTIVE: Vital Signs Period Temp Pulse Resp BP Sys/Peter Pulse Ox Last 24 Hr 97.5 F-98.6 F 66-81 16-20 127-149/70-91 95-98 GENERAL: The patient is awake, alert, and fully oriented, in no acute distress. LUNGS: Breath sounds equal, clear to auscultation bilaterally, no wheezes, no crackles, no accessory muscle use. HEART: Regular rate and rhythm, S1, S2 without murmur, rub or gallop. ABDOMEN: Obese, soft, nontender, nondistended, normoactive bowel sounds, no guarding, no rebound, no hepatosplenomegaly, no masses. EXTREMITIES: Left foot wrapped, s/p right TMA Laboratory Results - last 24 hr 02/17/19 02/18/19 02/18/19 21:30 05:32 06:00 WBC RBC Hgb Hct MCV MCH MCHC RDW Plt Count MPV Absolute Neuts (auto) Neutrophils % Lymphocytes % Monocytes % Eosinophils % Basophils % Nucleated RBC % Sodium 136 Potassium 3.9 Chloride 100 Carbon Dioxide 30 Anion Gap 7 L BUN 42.0 H Creatinine 1.9 H Est GFR (CKD-EPI)AfAm 43.14 Est GFR (CKD-EPI)NonAf 37.22 POC Glucometer 261 228 Random Glucose 274 H Calcium 9.0 02/18/19 02/18/19 02/18/19 10:54 16:15 16:50 WBC 6.3 RBC 5.10 Hgb 13.8 Hct 41.1 MCV 80.7 MCH 27.1 MCHC 33.6 RDW 16.7 H Plt Count 283 MPV 9.1 Absolute Neuts (auto) 4.6 Neutrophils % 73.4 Lymphocytes % 14.6 D Monocytes % 5.9 Eosinophils % 5.6 H Basophils % 0.5 Nucleated RBC % 0 Sodium Potassium Chloride Carbon Dioxide Anion Gap BUN Creatinine Est GFR (CKD-EPI)AfAm Est GFR (CKD-EPI)NonAf POC Glucometer 281 318 Random Glucose Calcium Active Medications Generic Name Dose Route Start Last Admin Trade Name Freq PRN Reason Stop Dose Admin Ascorbic Acid 500 mg 02/19/19 10:00 Vitamin C - PO DAILY [facility] Aspirin 81 mg 02/19/19 10:00 Ecotrin - PO DAILY [facility] Atorvastatin Calcium 40 mg 02/18/19 22:00 Lipitor - PO HS [facility] Clopidogrel Bisulfate 75 mg 02/19/19 10:00 Plavix - PO DAILY [facility] Fentanyl 25 mcg 02/18/19 13:21 Sublimaze Injection - IVPUSH [id number] PRN PAIN-PACU ORDER X 4 DOSES ONLY Ferrous Sulfate 325 mg 02/19/19 10:00 Feosol - PO DAILY [facility] Gabapentin 300 mg 02/18/19 22:00 Neurontin - PO TID [facility] Heparin Sodium (Porcine) 5,000 unit 02/18/19 22:00 Heparin - SQ TID [facility] Vancomycin HCl 1,250 mg/ 250 mls @ 250 mls/2 hr 02/18/19 18:00 02/18/19 18:05 Dextrose IVPB 250 mls/2 hr DAILY@1800 [facility] Administration Protocol Piperacillin Sod/Tazobactam 50 mls @ 100 mls/hr 02/18/19 18:00 02/18/19 18:04 Sod 3.375 gm/ Dextrose IVPB 100 mls/hr Q8H-IV [facility] Administration Protocol Insulin Aspart 1 vial 02/18/19 16:30 02/18/19 16:56 Novolog Vial Sliding Scale - SQ 8 units ACHS [facility] Administration Protocol Insulin Detemir 20 units 02/18/19 22:00 Levemir Vial SQ BID@0700,2200 [facility] Losartan Potassium 25 mg 02/19/19 10:00 Cozaar - PO DAILY [facility] Metoprolol Succinate 25 mg 02/19/19 10:00 Toprol Xl - PO DAILY [facility] Mupirocin 1 applic 02/19/19 10:00 Bactroban 2% Ointment - TP DAILY [facility] Pantoprazole Sodium 40 mg 02/19/19 10:00 Protonix - PO DAILY [facility] Sodium Bicarbonate 650 mg 02/18/19 22:00 Sodium Bicarbonate - PO TID [facility] Torsemide 60 mg 02/19/19 10:00 Demadex - PO DAILY [facility] ASSESSMENT/PLAN: This is a 63 year old man with a history of CAD with stents, stage 3 CKD, HTN, hyperlipidemia, chronic systolic heart failure, type 2 DM, peripheral neuropathy , morbid obesity, BRITTNEY, PAD, right TMA, chronic left foot ulcer who was sent to the ED by Dr. Ba for IV antibiotics. 1. Infected chronic left foot ulcer with cellulitis - s/p excisional debridement today - Continue Zosyn, vancomycin - Patient refused MRI 2. PAD, history of right TMA - Continue aspirin, Plavix, Lipitor 3. CAD, history of PCI with stents - Continue aspirin, Plavix, Lipitor 4. HTN - Continue Cozaar, Toprol XL 5. Hyperlipidemia - Continue Lipitor 6. Chronic systolic heart failure - Stable - Continue Demadex 7. Type 2 DM with peripheral neuropathy - Continue Levemir, Novolog sliding scale, Neurontin 8. Morbid obesity 9. BRITNTEY - Continue BiPAP at night Visit type - Emergency Visit Emergency Visit: Yes ED Registration Date: 02/14/19 Care time: The patient presented to the Emergency Department on the above date and was hospitalized for further evaluation of their emergent condition. - New Patient This patient is new to me today: Yes Date on this admission: 02/18/19 - Critical Care Critical Care patient: No - Discharge Referral Referred to [facility] Med P.C.: No
[2019-02-18] MEDS: ATORVASTATIN CA 40 MG TABLET (FP) PO SCH (22:57)
[2019-02-19] MEDS ORDERED: DEXTROSE 5%-WATER - 50 ML IVPB ONE ×3 (01:45→17:28)
[2019-02-19] MEDS ORDERED: PIPERACILLIN/TAZOBACTAM 3.375 GM VIAL IVPB ONE ×3 (01:45→17:27)
[2019-02-19] MEDS: PIPERACILLIN/TAZOB 3.375 GM 3.375 GM in DEXTROSE 5%-WATER - 50 ML IVPB SCH ×3 (01:54→17:38)
[2019-02-19] MEDS: INSULIN (LEVEMIR) 100 UNITS/ML UNITS SQ SCH ×2 (06:59→23:40)
[2019-02-19] MEDS: GABAPENTIN 300 MG CAPSULE PO SCH ×3 (06:59→23:42)
[2019-02-19] MEDS: SODIUM BICARBONATE 650 MG TABLET PO SCH ×3 (07:03→23:42)
[2019-02-19] MEDS: HEPARIN NA (PORCINE) 5,000 UNITS/ML 1ML VIAL SQ SCH ×3 (07:05→23:43)
[2019-02-19] MEDS: INSULIN SLIDING SCALE (NOVOLOG) 1 VIAL SQ SCH ×4 (07:06→23:49)
--- NOTE | 2019-02-19 08:50 | PN ---
Progress Note (short form) - Note Progress Note: S/p debridement left plantar wound No c/o No bleeding Will place VAC today and arrange VNS PT for non-weight bearing. Bone culture pending.
[2019-02-19 09:00] LABS: BASO % 0.6 % (0-2.0); EOS % 5.2 % (0-4.5); HEMATOCRIT 37.3 % (35.4-49); HEMOGLOBIN 12.5 GM/dL (11.7-16.9); MCH 26.7 pg (25.7-33.7); MCHC 33.5 g/dl (32.0-35.9); MEAN CELL VOLUME 79.9 fl (80-96); MONO % 6.3 % (3.8-10.2); NEUT % 72.9 % (42.8-82.8); PLATELET COUNT 235 K/MM3 (134-434); RBC 4.66 M/mm3 (4.00-5.60); RDW 16.4 % (11.9-15.9); WHITE BLOOD COUNT 5.8 K/mm3 (4.0-10.0)
[2019-02-19 09:12] LABS: BLOOD UREA NITROGEN 43.2 mg/dL (7-18); CALCIUM 8.6 mg/dL (8.5-10.1); CREATININE 1.8 mg/dL (0.55-1.3); POTASSIUM 3.7 mmol/L (3.5-5.1)
--- NOTE | 2019-02-19 10:39 | OP ---
DATE OF OPERATION: 02/18/2019 SURGEON: Paulo Marte MD PROCEDURE: Excisional debridement of skin, subcutaneous tissue, and bone, left foot. PREOPERATIVE DIAGNOSIS: Diabetic wound of left foot. POSTOPERATIVE DIAGNOSIS: Diabetic wound of left foot. ANESTHESIA: Fractional. ANESTHESIOLOGIST: Khushboo Saucedo MD OPERATIVE FINDINGS: There was necrotic wound on the plantar aspect of the left 5th metatarsal, which extended into the subcutaneous tissue. The head of the 5th metatarsal is exposed at the wound base. DESCRIPTION OF PROCEDURE: Following routine patient identification with side and site verification, intravenous sedation was established. The foot was prepped with Betadine solution, and time-out was performed, 1% lidocaine was infiltrated around the wound. The necrotic eschar was then excised with scalpel into the deep subcutaneous tissue plane. Additional soft tissue debridement was performed to remove nonviable tissue. The metatarsal head was exposed at the base of the wound, and this was debrided with a rongeur and smoothed with a rasp. The wound was irrigated with saline and checked for hemostasis. The wound was packed open with iodoform gauze covered with Xeroform, dry gauze, ABD pad, Kerlix, and Coban, and the patient was taken to the recovery room in stable condition. PAULO MARTE M.D. [id number]
[2019-02-19] MEDS ORDERED: PT OWN MED DRAWER 7, Y5N ONE (10:41)
[2019-02-19] MEDS: PANTOPRAZOLE 40 MG TABLET PO SCH (12:58)
[2019-02-19] MEDS: metoPROLOL SUCCINATE 25 MG TAB.SR.24H (FP) PO SCH (12:58)
[2019-02-19] MEDS: LOSARTAN POTASSIUM 25 MG TABLET PO SCH (12:58)
[2019-02-19] MEDS: MUPIROCIN 2% TOPICAL OINTMENT 22 GM TUBE TP SCH (12:58)
[2019-02-19] MEDS: CLOPIDOGREL BISULFATE 75 MG TABLET (FP) PO SCH (12:58)
[2019-02-19] MEDS: FERROUS SO4 325 MG TABLET (FP) PO SCH (12:58)
[2019-02-19] MEDS: ASCORBIC ACID 500 MG TABLET (FP) PO SCH (12:58)
[2019-02-19] MEDS: ASPIRIN COATED 81 MG TABLET.EC PO SCH (12:58)
[2019-02-19] MEDS: TORSEMIDE 20 MG TABLET (FP) PO SCH (12:58)
--- NOTE | 2019-02-19 15:52 | PN ---
Progress Note, Physician Chief Complaint: left foot ulcer History of Present Illness: feeling better, no pain, afebrile - Current Medication List Current Medications: Active Medications Ascorbic Acid (Vitamin C -) 500 mg PO DAILY [facility] Last Admin: 02/19/19 12:58 Dose: 500 mg Aspirin (Ecotrin -) 81 mg PO DAILY [facility] Last Admin: 02/19/19 12:58 Dose: 81 mg Atorvastatin Calcium (Lipitor -) 40 mg PO HS [facility] Last Admin: 02/18/19 22:57 Dose: 40 mg Clopidogrel Bisulfate (Plavix -) 75 mg PO DAILY [facility] Last Admin: 02/19/19 12:58 Dose: 75 mg Fentanyl (Sublimaze Injection -) 25 mcg IVPUSH [id number] PRN PRN Reason: PAIN-PACU ORDER X 4 DOSES ONLY Ferrous Sulfate (Feosol -) 325 mg PO DAILY [facility] Last Admin: 02/19/19 12:58 Dose: 325 mg Gabapentin (Neurontin -) 300 mg PO TID [facility] Last Admin: 02/19/19 15:43 Dose: 300 mg Heparin Sodium (Porcine) (Heparin -) 5,000 unit SQ TID [facility] Last Admin: 02/19/19 15:44 Dose: 5,000 unit Vancomycin HCl 1,250 mg/ (Dextrose) 250 mls @ 250 mls/2 hr IVPB DAILY@1800 IGGY ; Protocol Last Admin: 02/18/19 18:05 Dose: 250 mls/2 hr Piperacillin Sod/Tazobactam (Sod 3.375 gm/ Dextrose) 50 mls @ 100 mls/hr IVPB Q8H-IV [facility]; Protocol Last Admin: 02/19/19 12:58 Dose: 100 mls/hr Insulin Aspart (Novolog Vial Sliding Scale -) 1 vial SQ ACHS [facility]; Protocol Last Admin: 02/19/19 12:59 Dose: 8 units Insulin Detemir (Levemir Vial) 20 units SQ BID@0700,2200 [facility] Last Admin: 02/19/19 06:59 Dose: 20 unit Losartan Potassium (Cozaar -) 25 mg PO DAILY [facility] Last Admin: 02/19/19 12:58 Dose: 25 mg Metoprolol Succinate (Toprol Xl -) 25 mg PO DAILY [facility] Last Admin: 02/19/19 12:58 Dose: 25 mg Mupirocin (Bactroban 2% Ointment -) 1 applic TP DAILY [facility] Last Admin: 02/19/19 12:58 Dose: Not Given Pantoprazole Sodium (Protonix -) 40 mg PO DAILY [facility] Last Admin: 02/19/19 12:58 Dose: 40 mg Sodium Bicarbonate (Sodium Bicarbonate -) 650 mg PO TID [facility] Last Admin: 02/19/19 15:43 Dose: 650 mg Torsemide (Demadex -) 60 mg PO DAILY [facility] Last Admin: 02/19/19 12:58 Dose: 60 mg - Objective Vital Signs: Vital Signs Temperature 98.0 F 02/19/19 08:53 Pulse Rate 71 02/19/19 08:53 Respiratory Rate 18 02/19/19 08:53 Blood Pressure 149/92 02/19/19 08:53 O2 Sat by Pulse Oximetry (%) 95 02/19/19 08:46 Constitutional: Yes: Well Nourished, No Distress, Calm Cardiovascular: Yes: WNL, Regular Rate and Rhythm Respiratory: Yes: WNL, Regular, CTA Bilaterally Gastrointestinal: Yes: WNL, Normal Bowel Sounds, Soft, Abdomen, Obese Extremities: Yes: Other (left foot wound vac, right TMA) Labs: CBC, BMP 02/19/19 07:40 02/19/19 06:00 Problem List - Problems (1) CKD (chronic kidney disease) Code(s): N18.9 - CHRONIC KIDNEY DISEASE, UNSPECIFIED (2) Diabetic foot ulcer Code(s): E11.621 - TYPE 2 DIABETES MELLITUS WITH FOOT ULCER; L97.509 - NON- PRESSURE CHRONIC ULCER OTH PRT UNSP FOOT W UNSP SEVERITY (3) Morbid obesity with BMI of 40.0-44.9, adult Code(s): E66.01 - MORBID (SEVERE) OBESITY DUE TO EXCESS CALORIES; Z68.41 - BODY MASS INDEX (BMI) 40.0-44.9, ADULT (4) Poorly controlled diabetes mellitus Code(s): E11.65 - TYPE 2 DIABETES MELLITUS WITH HYPERGLYCEMIA (5) CHF (congestive heart failure) Code(s): I50.9 - HEART FAILURE, UNSPECIFIED (6) Diabetes mellitus Code(s): E11.9 - TYPE 2 DIABETES MELLITUS WITHOUT COMPLICATIONS Qualifiers: Diabetes mellitus type: type 2 Diabetes mellitus snf insulin use: with mica patcher use Diabetes mellitus complication status: with kidney complications Diabetes mellitus complication detail: with chronic kidney disease Chronic kidney disease stage: stage 3 (moderate) Qualified Code(s): E11.22 - Type 2 diabetes mellitus with diabetic chronic kidney disease; N18.3 - Chronic kidney disease, stage 3 (moderate); Z79.4 - 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 operator external tool (current) use of insulin (7) Hyperlipidemia Code(s): E78.5 - HYPERLIPIDEMIA, UNSPECIFIED Qualifiers: Hyperlipidemia type: unspecified Qualified Code(s): E78.5 - Hyperlipidemia , unspecified (8) Hypertension Code(s): I10 - ESSENTIAL (PRIMARY) HYPERTENSION Qualifiers: Hypertension type: essential hypertension Qualified Code(s): I10 - Essential (primary) hypertension Assessment/Plan 63 M h/o CAD s/p stents, CKD 3, HTN, HLD, chronic systolic HF, peripheral neuropathy,T2DM, morbid obesity, R TMA, BRITTNEY on CPAP, chronic LLE ulcer requiring debridement 2 days ago presents to ED for IV abx. Chronic LLE ulcer s/p debridement L 5th toe Systolic CHF, chronic CAD sp PCI HTN HLD BRITTNEY Morbid Obesity DM2 Plan: -s/p debridement left plantar wound -wound VAC placed -fu bone cx to decide on abx, ID following -PT as tolerated -vascular eval appreciated -c/w current mngmt
[2019-02-19] MEDS: VANCOMYCIN HCL 1,250 MG in DEXTROSE 5%-WATER - 250 ML IVPB SCH (18:30)
[2019-02-19] MEDS: ATORVASTATIN CA 40 MG TABLET (FP) PO SCH (23:42)
[2019-02-20] MEDS ORDERED: DEXTROSE 5%-WATER - 50 ML IVPB ONE ×2 (02:15→09:12)
[2019-02-20] MEDS ORDERED: PIPERACILLIN/TAZOBACTAM 3.375 GM VIAL IVPB ONE ×2 (02:15→09:12)
[2019-02-20] MEDS: PIPERACILLIN/TAZOB 3.375 GM 3.375 GM in DEXTROSE 5%-WATER - 50 ML IVPB SCH ×2 (02:32→09:51)
[2019-02-20] MEDS: INSULIN (LEVEMIR) 100 UNITS/ML UNITS SQ SCH ×2 (07:03→21:17)
[2019-02-20] MEDS: SODIUM BICARBONATE 650 MG TABLET PO SCH ×3 (07:04→21:18)
[2019-02-20] MEDS: GABAPENTIN 300 MG CAPSULE PO SCH ×3 (07:05→21:18)
[2019-02-20] MEDS: HEPARIN NA (PORCINE) 5,000 UNITS/ML 1ML VIAL SQ SCH ×3 (07:06→21:18)
[2019-02-20] MEDS: INSULIN SLIDING SCALE (NOVOLOG) 1 VIAL SQ SCH ×4 (07:07→21:18)
[2019-02-20] MEDS ORDERED: PT OWN MED DRAWER 7, Y5N ONE (09:12)
[2019-02-20 09:29] LABS: BLOOD UREA NITROGEN 38.2 mg/dL (7-18); CALCIUM 8.6 mg/dL (8.5-10.1); CREATININE 1.7 mg/dL (0.55-1.3); POTASSIUM 3.6 mmol/L (3.5-5.1)
[2019-02-20] MEDS: ASCORBIC ACID 500 MG TABLET (FP) PO SCH (09:56)
[2019-02-20] MEDS: metoPROLOL SUCCINATE 25 MG TAB.SR.24H (FP) PO SCH (09:56)
[2019-02-20] MEDS: LOSARTAN POTASSIUM 25 MG TABLET PO SCH (09:56)
[2019-02-20] MEDS: CLOPIDOGREL BISULFATE 75 MG TABLET (FP) PO SCH (09:56)
[2019-02-20] MEDS: FERROUS SO4 325 MG TABLET (FP) PO SCH (09:56)
[2019-02-20] MEDS: TORSEMIDE 20 MG TABLET (FP) PO SCH (09:56)
[2019-02-20] MEDS: PANTOPRAZOLE 40 MG TABLET PO SCH (09:56)
[2019-02-20] MEDS: ASPIRIN COATED 81 MG TABLET.EC PO SCH (09:57)
[2019-02-20] MEDS: MUPIROCIN 2% TOPICAL OINTMENT 22 GM TUBE TP SCH (09:57)
--- NOTE | 2019-02-20 14:38 | PATH ---
Surgical Pathology Report Patient Name: RONN NARANJO Med. Rec. #: [id number] /Age/Gender: 1955 (Age: 63) / M Account: [id number] Location: [address] [place] [address]/[facility] Taken: 02/18/2019 Received: 02/19/2019 Reported: 02/20/2019 Physicians: Paulo Ba M.D. Specimen(s) Received TISSUE LEFT FOOT Clinical History Diabetic left foot ulcer Final Diagnosis FOOT, LEFT, DEBRIDED TISSUE, DEBRIDEMENT: SKIN AND UNDERLYING SOFT TISSUE WITH MARKED INFLAMMATION, ULCERATION, AND FIBRINOPURULENT EXUDATE. Electronically Signed Veda Stark M.D. Gross Description Received in formalin labeled "debrided tissue left foot," is a 3.8 x 3.0 cm nuñez-green, ulcerated, necrotic portion of skin excised to a depth of 0.7 cm. The specimen is unoriented. A artist representative section is submitted in one cassette. /02/19/2019 saudi/02/19/2019
--- NOTE | 2019-02-20 14:55 | PN ---
Progress Note (short form) - Note Progress Note: s/p operative debridement by dr leonard- now with vac d/w dr christie after surgeryhe didnot feel wound was infected, sent bone for culture - culture of bone is negative he feels well Vital Signs Period Temp Pulse Resp BP Sys/Peter Pulse Ox Last 24 Hr 97.7 F-98.7 F 62-73 18-18 131-155/75-85 93-[address], I cannot examine the foot CBC, BMP 02/19/19 07:40 02/20/19 07:55 Microbiology 02/18/19 12:56 Bone Gram Stain - Final 02/18/19 12:56 Bone Tissue Culture - Final NO GROWTH OF AEROBIC ORGANISMS AFTER 48 HOURS INCUBATION 02/18/19 12:56 Bone Anaerobic Culture - Final NO ANAEROBES WERE ISOLATED 02/14/19 23:00 Nares - Mrsa Screen - Left MRSA Screen - Final NO MRSA ISOLATED 02/14/19 22:45 Nares - Mrsa Screen - Right MRSA Screen - Final NO MRSA ISOLATED a/p s/p debridement of callus/ulcer- can d/c vanco/zosyn, switch to po augmentin for one week, can f/u with dr christie refused MRI prior to surgery ckd- at baseline poorly controlled diabetic-needs f/u with PMD-suspect he will have poor wound healing due to poorly controlled diabetes CAD with recent stents morbid obesity with bmi over 40 please call back if needed Problem List - Problems (1) Diabetic foot ulcer Code(s): E11.621 - TYPE 2 DIABETES MELLITUS WITH FOOT ULCER; L97.509 - NON- PRESSURE CHRONIC ULCER OTH PRT UNSP FOOT W UNSP SEVERITY (2) CAD (coronary artery disease) Code(s): I25.10 - ATHSCL HEART DISEASE OF [place] CORONARY ARTERY W/O ANG PCTRS Qualifiers: Coronary Disease-Associated Artery/Lesion type: [place] artery [place] vs. transplanted heart: [place] heart Associated angina: without angina Qualified Code(s): I25.10 - Atherosclerotic heart disease of [place] coronary artery without angina pectoris (3) CKD (chronic kidney disease) Code(s): N18.9 - CHRONIC KIDNEY DISEASE, UNSPECIFIED (4) Poorly controlled diabetes mellitus Code(s): E11.65 - TYPE 2 DIABETES MELLITUS WITH HYPERGLYCEMIA (5) Diabetes mellitus Code(s): E11.9 - TYPE 2 DIABETES MELLITUS WITHOUT COMPLICATIONS Qualifiers: Diabetes mellitus type: type 2 Diabetes mellitus alf insulin use: with superintendent marine oil terminal use Diabetes mellitus complication status: with kidney complications Diabetes mellitus complication detail: with chronic kidney disease Chronic kidney disease stage: stage 3 (moderate) Qualified Code(s): E11.22 - Type 2 diabetes mellitus with diabetic chronic kidney disease; N18.3 - Chronic kidney disease, stage 3 (moderate); Z79.4 - termite renewal inspector (current) use of insulin (6) Morbid obesity with BMI of 40.0-44.9, adult Code(s): E66.01 - MORBID (SEVERE) OBESITY DUE TO EXCESS CALORIES; Z68.41 - BODY MASS INDEX (BMI) 40.0-44.9, ADULT
--- NOTE | 2019-02-20 15:00 | DS ---
Physical Examination Vital Signs: Vital Signs Temperature 97.9 F 02/20/19 09:00 Pulse Rate 66 02/20/19 09:00 Respiratory Rate 18 02/20/19 09:00 Blood Pressure 150/77 02/20/19 09:00 O2 Sat by Pulse Oximetry (%) 93 L 02/20/19 10:00 Findings/Remarks: Seen and examined at bedside, feeling well, no complaints. Constitutional: Yes: Well Nourished, No Distress, Calm Cardiovascular: Yes: WNL, Regular Rate and Rhythm Respiratory: Yes: WNL, Regular, CTA Bilaterally Gastrointestinal: Yes: WNL, Normal Bowel Sounds, Soft, Abdomen, Obese Musculoskeletal: Yes: WNL Extremities: Yes: Other (right TMA, left foot wound vac) Edema: No Labs: CBC, BMP 02/19/19 07:40 02/20/19 07:55 Discharge Summary Problems reviewed: Yes Reason For Visit: DIABETIC FOOT ULCER Current Active Problems CKD (chronic kidney disease) (Acute) Diabetic foot ulcer (Acute) Morbid obesity with BMI of 40.0-44.9, adult (Acute) Poorly controlled diabetes mellitus (Acute) Hospital Course: 63 M h/o CAD s/p stents, CKD 3, HTN, HLD, chronic systolic HF, peripheral neuropathy,T2DM, morbid obesity, R TMA, BRITTNEY on CPAP, chronic LLE ulcer requiring debridement 2 days ago presents to ED for IV abx. Chronic LLE ulcer s/p debridement L 5th toe Systolic CHF, chronic CAD sp PCI HTN HLD BRITTNEY Morbid Obesity DM2 Plan: -s/p debridement left plantar wound -wound VAC placed -bone cx neg, abx DC -PT as tolerated -vascular eval appreciated -home with VNS Condition: Stable - Instructions Referrals: Veda Alexander MD [Primary Care Provider] - - Home Medications Comprehensive Discharge Medication List: Ambulatory Orders Aspirin Coated [Ecotrin -] 81 mg PO DAILY tablet.ec 04/30/15 Insulin (Novolog 70/30) [Novolog Mix 70/30 Flexpen -] 60 units SQ BID 06/28/16 Torsemide [Demadex -] 60 mg PO DAILY 09/15/16 Liraglutide [Victoza -] 1.2 mg SQ BID 06/07/17 Ferrous Sulfate 325 mg PO DAILY 02/28/18 Sodium Bicarbonate - 650 mg PO TID 02/28/18 Atorvastatin Ca [Lipitor] 40 mg PO HS 04/23/18 Clopidogrel Bisulfate [Plavix] 75 mg PO DAILY 04/23/18 Empagliflozin [Jardiance] 10 mg PO DAILY 07/03/18 Icosapent Ethyl [Vascepa] 2 gm PO BID 07/03/18 Potassium Chloride 20 meq PO DAILY 07/03/18 Acetaminophen [Tylenol Extra Strength] 1,500 mg PO TID PRN 07/23/18 Metoprolol Succinate [Toprol Xl] 100 mg PO DAILY 07/23/18 Oxycodone HCl 5 mg PO TID PRN #9 tablet MDD 3 tabs 07/23/18 Ammonium Lactate Lotion [Lac-Hydrin 12% Lotion -] 1 applic TP DAILY #2 bottle Desonide [Tridesilon] 60 gm TP BID #60 cream..g. 08/01/18 Amoxicillin/Potassium Clav [Augmentin 875-125 Tablet] 1 each PO BID 5 Days #10 tablet 02/13/19
[2019-02-20] MEDS: AMOX TR/POT CLAV 875MG/125MG TABLETS (FP) PO SCH (17:02)
[2019-02-20] MEDS ORDERED: INSULIN (NOVOLOG) ASPART 100 UNITS/ML 10ML VIAL ONE (21:11)
[2019-02-20] MEDS: ATORVASTATIN CA 40 MG TABLET (FP) PO SCH (21:18)
[2019-02-21] MEDS: INSULIN SLIDING SCALE (NOVOLOG) 1 VIAL SQ SCH ×4 (06:17→22:02)
[2019-02-21] MEDS: INSULIN (LEVEMIR) 100 UNITS/ML UNITS SQ SCH ×2 (06:17→22:01)
[2019-02-21] MEDS: GABAPENTIN 300 MG CAPSULE PO SCH ×3 (06:20→22:02)
[2019-02-21] MEDS: HEPARIN NA (PORCINE) 5,000 UNITS/ML 1ML VIAL SQ SCH ×3 (06:20→22:01)
[2019-02-21] MEDS: SODIUM BICARBONATE 650 MG TABLET PO SCH ×3 (06:22→22:03)
[2019-02-21] MEDS ORDERED: INSULIN (NOVOLOG) ASPART 100 UNITS/ML 10ML VIAL ONE (07:04)
[2019-02-21 08:57] LABS: BLOOD UREA NITROGEN 36.4 mg/dL (7-18); CALCIUM 8.9 mg/dL (8.5-10.1); CREATININE 1.6 mg/dL (0.55-1.3); POTASSIUM 3.7 mmol/L (3.5-5.1)
[2019-02-21] MEDS ORDERED: PT OWN MED DRAWER 7, Y5N ONE (09:23)
[2019-02-21] MEDS: MUPIROCIN 2% TOPICAL OINTMENT 22 GM TUBE TP SCH (09:25)
[2019-02-21] MEDS: LOSARTAN POTASSIUM 25 MG TABLET PO SCH (09:28)
[2019-02-21] MEDS: TORSEMIDE 20 MG TABLET (FP) PO SCH (09:28)
[2019-02-21] MEDS: PANTOPRAZOLE 40 MG TABLET PO SCH (09:28)
[2019-02-21] MEDS: CLOPIDOGREL BISULFATE 75 MG TABLET (FP) PO SCH (09:28)
[2019-02-21] MEDS: ASCORBIC ACID 500 MG TABLET (FP) PO SCH (09:28)
[2019-02-21] MEDS: FERROUS SO4 325 MG TABLET (FP) PO SCH (09:28)
[2019-02-21] MEDS: metoPROLOL SUCCINATE 25 MG TAB.SR.24H (FP) PO SCH (09:28)
[2019-02-21] MEDS: ASPIRIN COATED 81 MG TABLET.EC PO SCH (09:32)
[2019-02-21] MEDS: AMOX TR/POT CLAV 875MG/125MG TABLETS (FP) PO SCH ×2 (09:32→18:11)
[2019-02-21] MEDS: ATORVASTATIN CA 40 MG TABLET (FP) PO SCH (22:01)
[2019-02-22] MEDS: HEPARIN NA (PORCINE) 5,000 UNITS/ML 1ML VIAL SQ SCH (06:16)
[2019-02-22] MEDS: SODIUM BICARBONATE 650 MG TABLET PO SCH (06:16)
[2019-02-22] MEDS: GABAPENTIN 300 MG CAPSULE PO SCH (06:16)
[2019-02-22] MEDS: INSULIN SLIDING SCALE (NOVOLOG) 1 VIAL SQ SCH (06:51)
[2019-02-22] MEDS: INSULIN (LEVEMIR) 100 UNITS/ML UNITS SQ SCH (06:52)
[2019-02-22] MEDS: ASPIRIN COATED 81 MG TABLET.EC PO SCH (09:39)
[2019-02-22] MEDS: LOSARTAN POTASSIUM 25 MG TABLET PO SCH (09:39)
[2019-02-22] MEDS: AMOX TR/POT CLAV 875MG/125MG TABLETS (FP) PO SCH (09:39)
[2019-02-22] MEDS: PANTOPRAZOLE 40 MG TABLET PO SCH (09:39)
[2019-02-22] MEDS: ASCORBIC ACID 500 MG TABLET (FP) PO SCH (09:39)
[2019-02-22] MEDS: FERROUS SO4 325 MG TABLET (FP) PO SCH (09:39)
[2019-02-22] MEDS: MUPIROCIN 2% TOPICAL OINTMENT 22 GM TUBE TP SCH (09:40)
[2019-02-22] MEDS: CLOPIDOGREL BISULFATE 75 MG TABLET (FP) PO SCH (09:40)
[2019-02-22] MEDS: metoPROLOL SUCCINATE 25 MG TAB.SR.24H (FP) PO SCH (09:40)
[2019-02-22] MEDS: TORSEMIDE 20 MG TABLET (FP) PO SCH (09:42)
[2019-02-22 10:47] VITALS: BP 147/77; PULSE 65; TEMP 98.1
== END 2019-02-22 10:45 | disposition home or self-care (01) | DRG 629 ==
LOC: JER 14:34 → JERBED 15:20 → J6S 22:22 → J5S 02-18 13:31
PROVIDERS: ADMIT Internal Medicine; ATTEND Internal Medicine
PROC: 0QBP0ZZ Excision of Left Metatarsal, Open Approach (ICD-10-PCS; principal; 2019-02-18 14:00)
DX: E11.621 Type 2 diabetes mellitus with foot ulcer (principal); L03.116 Cellulitis of left lower limb; Z68.41 Body mass index [BMI] 40.0-44.9, adult; I50.22 Chronic systolic (congestive) heart failure; I13.0 Hypertensive heart and chronic kidney disease with heart failure and stage 1 through stage 4 chronic kidney disease, or unspecified chronic kidney disease; E66.01 Morbid (severe) obesity due to excess calories; N18.3 Chronic kidney disease, stage 3 (moderate); E11.22 Type 2 diabetes mellitus with diabetic chronic kidney disease; E11.42 Type 2 diabetes mellitus with diabetic polyneuropathy; I25.10 Atherosclerotic heart disease of native coronary artery without angina pectoris; Z95.5 Presence of coronary angioplasty implant and graft; E78.5 Hyperlipidemia, unspecified; G47.33 Obstructive sleep apnea (adult) (pediatric); E11.65 Type 2 diabetes mellitus with hyperglycemia
CPT/HCPCS: 11042; 17250; 36415; 71046-TC-FY; 73630-TC-LT; 80048; 80053; 80061; 82607; 82947; 82962; 83036; 83721; 83735; 84100; 84443; 85025; 85651; 86140; 87070; 87075; 87081; 87205; 88304-TC; 93005; 93010; 94660; 94760; 97116-GP; 97161-GP; 99284-25; G0480; J1644

== ENCOUNTER 2019-03-14 20:14 | Inpatient (IN) | payer OTHER, BC ==
--- NOTE | 2019-03-14 20:56 | PDOC ---
Rapid Medical Evaluation Chief Complaint: Wound Time Seen by Provider: 03/14/19 20:49 Medical Evaluation: Allergies Allergy/AdvReac Type Severity Reaction Status Date / Time No Known Drug Allergies Allergy Verified 02/14/19 14:38 03/14/19 20:52 I have performed a brief in-person evaluation of this patient. The patient presents with a chief complaint of:pain and swelling to left leg S/ P angioplasty today - told to come for eval for antiobiotics, Pertinent physical exam findings: mild swelling and pain to left leg I have ordered the following: Cbc, Cmp, PtInR, blood cx The patient will proceed to the ED for further evaluation. 03/14/19 20:54 Discharge Disposition - Diagnosis Cellulitis - Referrals - Patient Instructions - Post Discharge Activity
--- NOTE | 2019-03-14 21:21 | PDOC ---
History of Present Illness - General Chief Complaint: Wound Stated Complaint: EVALUATION Time Seen by Provider: 03/14/19 20:49 - History of Present Illness Initial Comments: Mr. Duarte is a 64 y/o male with reported PMH of CAD s/p stents, CKD, HTN, HLD, peripheral neuropathy, DMT2, right foot amputation, s/p left lower extremity angioplasty today. He was sent in by Dr. Ba for IV antibiotics and chronic wound overlying the anterior and lateral lower extremity. Possible procedure vs amputation scheduled for Monday. Past History - Past Medical History Allergies/Adverse Reactions: Allergies Allergy/AdvReac Type Severity Reaction Status Date / Time No Known Drug Allergies Allergy Verified 02/14/19 14:38 Home Medications: Ambulatory Orders Insulin (Novolog 70/30) [Novolog Mix 70/30 Flexpen -] 60 units SQ BID 06/28/16 Liraglutide [Victoza -] 1.2 mg SQ BID 06/07/17 Clopidogrel Bisulfate [Plavix] 75 mg PO DAILY 04/23/18 Empagliflozin [Jardiance] 10 mg PO DAILY 07/03/18 Icosapent Ethyl [Vascepa] 2 gm PO BID 07/03/18 Potassium Chloride 20 meq PO DAILY 07/03/18 Metoprolol Succinate [Toprol Xl] 100 mg PO DAILY 07/23/18 Oxycodone HCl 5 mg PO TID PRN #9 tablet MDD 3 tabs 07/23/18 Ammonium Lactate Lotion [Lac-Hydrin 12] 1 applic TP DAILY #2 bottle 08/01/18 Desonide [Tridesilon] 60 gm TP BID #60 cream..g. 08/01/18 Ascorbic Acid [Vitamin C -] 500 mg PO DAILY tablet 02/20/19 Aspirin Coated [Ecotrin -] 81 mg PO DAILY tablet.ec 02/20/19 Atorvastatin Ca [Lipitor] 40 mg PO HS tablet 02/20/19 Ferrous Sulfate [Feosol] 325 mg PO DAILY ud 02/20/19 Gabapentin [Neurontin -] 300 mg PO TID capsule 02/20/19 Losartan Potassium [Cozaar -] 25 mg PO DAILY tablet 02/20/19 Mupirocin Ointment [Bactroban 2% Ointment -] 1 applic TP DAILY applic 02/20/19 Pantoprazole Sodium [Protonix -] 40 mg PO DAILY tablet.ec 02/20/19 Sodium Bicarbonate - 650 mg PO TID tablet 02/20/19 Torsemide [Demadex -] 60 mg PO DAILY tablet 02/20/19 Amox-Tr/K Cl [Augmentin - 500Mg Tablet] 1 tab PO BID #14 tab 03/13/19 Anemia: No Asthma: No Cancer: No Cardiac Disorders: Yes (2 stents) CVA: No COPD: No CHF: Yes Dementia: No Diabetes: Yes GI Disorders: No Disorders: No HTN: Yes Hypercholesterolemia: Yes Liver Disease: No Seizures: No Thyroid Disease: No - Surgical History Abdominal Surgery: No Appendectomy: No Cardiac Surgery: Yes (stent) Cholecystectomy: No Lung Surgery: No Neurologic Surgery: No Orthopedic Surgery: Yes (Transmetatarsal amputation of right foot) - Immunization History Immunization Up to Date: Yes - Psycho Social/Smoking Cessation Hx Smoking Status: Yes Smoking History: Never smoked Have you smoked in the past 12 months: No Number of Cigarettes Smoked Daily: 10 If you are a former smoker, when did you quit?: 2016 Information on smoking cessation initiated: No 'Breaking Loose' booklet given: 04/10/15 Hx Alcohol Use: No Drug/Substance Use Hx: No Substance Use Type: None Hx Substance Use Treatment: No Review of Systems - Review of Systems Comments:: GENERAL/CONSTITUTIONAL: No fever or chills. No weakness._ HEAD, EYES, EARS, NOSE AND THROAT: No change in vision. No change in hearing. No sore throat._ CARDIOVASCULAR: No chest pain or shortness of breath_ RESPIRATORY: Denies cough, hemoptysis_ GASTROINTESTINAL: No nausea, vomiting, diarrhea or constipation._ GENITOURINARY: No dysuria, frequency, or change in urination._ MUSCULOSKELETAL: Non healing wound over left lateral foot. SKIN: No rash_ NEUROLOGIC: No headache, vertigo, loss of consciousness, or change in strength/ sensation._ ENDOCRINE: No increased thirst. No abnormal weight change_ HEMATOLOGIC/LYMPHATIC: No anemia, easy bleeding, or history of blood clots._ ALLERGIC/IMMUNOLOGIC: No hives or skin allergy._ *Physical Exam - Vital Signs Last Vital Signs Temp Pulse Resp BP Pulse Ox 98.1 F 70 20 135/79 96 03/14/19 20:56 03/14/19 20:56 03/14/19 20:56 03/14/19 20:56 03/14/19 20:56 - Physical Exam GENERAL: Awake, alert, and oriented to person/place/time, in no acute distress_ HEAD: No signs of trauma, normoc ephalic, atraumatic _ EYES: PERRLA, EOMI, sclera anicteric, conjunctiva clear_ ENT: Hearing grossly normal, nares patent, oropharynx clear without exudates. No uvular deviation. Moist mucosa_ NECK: Normal ROM, supple, no lymphadenopathy, JVD, or masses_ LUNGS: No distress, speaks in full sentences, clear to auscultation bilaterally _ HEART: Regular rate and rhythm, normal S1 and S2, no murmurs appreciated, peripheral pulses normal and equal bilaterally._ ABDOMEN: Soft, nontender, normoactive bowel sounds. No guarding, no rebound. No masses_ EXTREMITIES: Erythema over anterior lower left leg and foot, 1 cm laceration over anterior left foot, ulcerated wound over left lateral foot. Right foot amputation. NEUROLOGICAL: Cranial nerves II through XII grossly intact. Normal speech, no focal sensorimotor deficits _ SKIN: Warm, Dry, normal turgor, no rashes or lesions noted_ ED Treatment Course - LABORATORY CBC & Chemistry Diagram: 03/14/19 22:00 03/14/19 22:00 Medical Decision Making - Medical Decision Making 64M s/p angioplasty left foot today, sent in by Dr. Ba for IV abx and possible procedure on Monday. -cbc, cmp, coags -cxr, ekg -xr left foot/ankle -blood cx, wound cx 03/14/19 21:43 D/w Dr. Ba. Requests that we admit the patient to the hospitalist. Will start on Vanc/Zosyn. ID consult. 03/14/19 22:51 EKG shows 69 bpm, NV 80, no ST elevation, QTc 458. 03/14/19 23:47 Labs reviewed. Laboratory Tests 03/14/19 03/14/19 03/14/19 22:00 22:00 22:00 WBC 7.1 RBC 4.80 Hgb 13.1 Hct 38.0 MCV 79.2 L MCH 27.2 MCHC 34.4 RDW 16.4 H Plt Count 332 MPV 8.4 Absolute Neuts (auto) 4.9 Neutrophils % 70.2 Lymphocytes % 14.4 Monocytes % 10.0 Eosinophils % 4.7 H Basophils % 0.7 Nucleated RBC % 0 PT with INR INR PTT (Actin FS) Sodium 136 Potassium 3.4 L Chloride 100 Carbon Dioxide 26 Anion Gap 10 BUN 52.1 H Creatinine 2.0 H Est GFR (CKD-EPI)AfAm 40.26 Est GFR (CKD-EPI)NonAf 34.74 Random Glucose 99 Calcium 8.5 Total Bilirubin 0.4 AST 39 H ALT 40 Alkaline Phosphatase 87 Total Protein 7.3 Albumin 3.0 L Blood Type A POSITIVE Antibody Screen Negative 03/14/19 22:00 WBC RBC Hgb Hct MCV MCH MCHC RDW Plt Count MPV Absolute Neuts (auto) Neutrophils % Lymphocytes % Monocytes % Eosinophils % Basophils % Nucleated RBC % PT with INR 12.60 INR 1.07 PTT (Actin FS) 35.4 Sodium Potassium Chloride Carbon Dioxide Anion Gap BUN Creatinine Est GFR (CKD-EPI)AfAm Est GFR (CKD-EPI)NonAf Random Glucose Calcium Total Bilirubin AST ALT Alkaline Phosphatase Total Protein Albumin Blood Type Antibody Screen 03/15/19 00:22 CXR negative. XR left foot shows joint erosion of the left 5th toe. D/w Dr. Clark who accepts the pt for admission. Discharge - Discharge Information Problems reviewed: Yes Clinical Impression/Diagnosis: Cellulitis Condition: Stable - Admission Yes - Follow up/Referral Referrals: Veda Alexander MD [Primary Care Provider] - - Patient Discharge Instructions - Post Discharge Activity
--- NOTE | 2019-03-14 21:26 | PDOC ---
Attending Attestation - Resident Resident Name: Alejandro Mclaughlin - ED Attending Attestation I have performed the following: I have examined & evaluated the patient, The case was reviewed & discussed with the resident, I agree w/resident's findings & plan, Exceptions are as noted - HPI HPI: 03/15/19 00:42 See resident HPI - Physicial Exam PE: 03/15/19 00:42 Agree with documented exam - Medical Decision Making 03/15/19 00:42 64M PMH DM, HTN, HLD, CAD s/p stenting, CKD, s/p R midfoot ambutation, s/p LLE extremity angioplasty today. Sent in by Dr. Ba, vascular surgeon who is following the patient's limb pathology, for IV abx and re-evaluation for probable interval amputation f/u labs, xr abx admit
[2019-03-14] MEDS ORDERED: VANCOMYCIN 1 GM in D5W (PRE-DOCKED) 1,000 MG/250 ML IVPB ONE (21:47)
[2019-03-14] MEDS ORDERED: PIPERACILLIN/TAZOB 3.375 GM 3.375 GM in DEXTROSE 5%-WATER - 50 ML IVPB ONE (21:49)
[2019-03-14] MEDS ORDERED: VANCOMYCIN 1 GRAM (PRE-DOCKED) 1,000 MG/250 ML BAG IVPB ONE (21:54)
[2019-03-14] MEDS ORDERED: SODIUM CHLORIDE 0.9% 500 ML INFUS.BAG IV ONE (21:55)
[2019-03-14] MEDS ORDERED: PIPERACILLIN/TAZOB 3.375 GM 3.375 GM/50 ML BAG IVPB ONE (21:55)
[2019-03-14 22:24] LABS: BASO % 0.7 % (0-2.0); EOS % 4.7 % (0-4.5); HEMOGLOBIN 13.1 GM/dL (11.7-16.9); LYMPH % 14.4 % (8-40); MCH 27.2 pg (25.7-33.7); MCHC 34.4 g/dl (32.0-35.9); MEAN CELL VOLUME 79.2 fl (80-96); MEAN PLT VOLUME 8.4 fl (7.5-11.1); NEUT % 70.2 % (42.8-82.8); PLATELET COUNT 332 K/MM3 (134-434); RDW 16.4 % (11.9-15.9); WHITE BLOOD COUNT 7.1 K/mm3 (4.0-10.0)
[2019-03-14 22:37] LABS: INR 1.07 (0.83-1.09); PROTHROMBIN TIME (PATIENT) 12.6 SEC (9.7-13.0)
[2019-03-14 22:40] LABS: ACTIVATED PTT 35.4 SECONDS (25.2-36.5)
[2019-03-14 22:54] LABS: BILIRUBIN,TOTAL 0.4 mg/dL (0.2-1); BLOOD UREA NITROGEN 52.1 mg/dL (7-18); CALCIUM 8.5 mg/dL (8.5-10.1); POTASSIUM 3.4 mmol/L (3.5-5.1); TOT PROT 7.3 g/dl (6.4-8.2)
[2019-03-15] MEDS ORDERED: VANCOMYCIN 1,000 MG in DEXTROSE 5%-WATER - 250 ML IVPB SCH (01:30)
[2019-03-15] MEDS ORDERED: POTASSIUM CHLORIDE TABS 20 MEQ TABLET.ER (FP) PO ONE (01:35)
[2019-03-15] MEDS ORDERED: SODIUM CHLORIDE 1,000 ML IV SCH (01:45)
--- NOTE | 2019-03-15 02:05 | PN ---
Teaching Attending Note Name of Resident: Burton Clark ATTENDING PHYSICIAN STATEMENT I saw and evaluated the patient. I reviewed the resident's note and discussed the case with the resident. I agree with the resident's findings and plan as documented. SUBJECTIVE: 65-year-old male with a history of peripheral vascular disease, CAD status post stents, CKD, hypertension, dyslipidemia, peripheral neuropathy, uncontrolled diabetes mellitus type 2 status post R Foot TMA in 2015. status post left lower extremity angioplasty on 03/13/2019. He was seen by Dr. Ba who performed the procedure, told patient to come to the emergency room for possible left foot transmetatarsal amputation and IV antibiotics. OBJECTIVE: Last Vital Signs Temp Pulse Resp BP Pulse Ox 98.1 F 70 20 135/79 96 03/14/19 20:56 03/14/19 20:56 03/14/19 20:56 03/14/19 20:56 03/14/19 20:56 GENERAL: Well developed, well nourished. Awake and alert. No acute distress. HEENT: Normocephalic, atraumatic. PERRLA, EOMI. No conjunctival pallor. Sclera are non- icteric. Moist mucous membranes. Oropharynx is clear. NECK: Supple. Full ROM. No JVD. Carotid pulses 2+ and symmetric, without bruits. No thyromegaly. No lymphadenopathy. CARDIOVASCULAR: Regular rate and rhythm. No murmurs, rubs, or gallops. Distal pulses are 2+ and symmetric. PULMONARY: No evidence of respiratory distress. Lungs clear to auscultation bilaterally. No wheezing, rales or rhonchi. ABDOMINAL: Soft. Non-tender. Non-distended. No rebound or guarding. No organomegaly. Normoactive bowel sounds. MUSCULOSKELETAL Normal range of motion at all joints. No bony deformities or tenderness. No CVA tenderness. EXTREMITIES: Right foot status post TMA, left foot with Lateral wound, left lateral wound, purulent discharge, foul-smelling SKIN: Warm and dry. Normal capillary refill. No rashes. No jaundice. PSYCHIATRIC: Cooperative. Good eye contact. Appropriate mood and affect. Abnormal Lab Results 03/14/19 03/14/19 22:00 22:00 MCV 79.2 L RDW 16.4 H Eosinophils % 4.7 H Potassium 3.4 L BUN 52.1 H Creatinine 2.0 H AST 39 H Albumin 3.0 L Imaging studies reviewed ASSESSMENT AND PLAN: Left foot lateral wound infectionlikely secondary to underlying peripheral vascular disease, uncontrolled diabetes mellitus Admit to [facility] Send blood cultures x2 IV antibiotics with Zosyn and vancomycin renally adjusted Send lactate Infectious disease consult Vascular surgery consult Wound care with vascular surgery Plan for possible transmetatarsal amputation of left foot this Monday #Uncontrolled diabetes mellitus Tight glycemic control NovoLog Mix 70/30 NovoLog sliding scale Statin Hold aspirin in anticipation of left TMA Diabetic diet A1c Glargine insulin #Uncontrolled hypertension Continue with home dose losartan, metoprolol #CKDstable avoid nephrotoxic medications #Hypoalbuminemia #DVT prophylaxisheparin subcutaneously
[2019-03-15] MEDS: oxyCODONE HCL 5 MG TABLET PO PRN ×2 (02:14→17:21)
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
[2019-03-15] MEDS ORDERED: PIPERACILLIN/TAZOB 2.25 GM 2.25 GM in DEXTROSE 5%-WATER - 50 ML IVPB SCH (03:00)
[2019-03-15 03:44] LABS: EPI CELLS 0.3 /HPF (0-5/HPF); HYALINE CASTS 0 /lpf (0-8); URINE APPEARANCE CLEAR; URINE BACTERIA 0.8 /hpf (NEGATIVE); URINE BILIRUBIN NEGATIVE (NEGATIVE); URINE COLOR YELLOW; URINE GLUCOSE (UA) 2+ (NEGATIVE); URINE KETONE NEGATIVE (NEGATIVE); URINE LEUK ESTERASE NEGATIVE (NEGATIVE); URINE NITRITE NEGATIVE (NEGATIVE); URINE PROTEIN 2+ (NEGATIVE); URINE RBC 2 /hpf (0-4); URINE UROBILINOGEN 0.2 mg/dL (0.2-1.0); URINE WBC 0 /hpf (0-5)
[2019-03-15] MEDS ORDERED: HEPARIN NA (PORCINE) 5,000 UNITS/ML 1ML VIAL ONE (06:12)
[2019-03-15] MEDS: HEPARIN NA (PORCINE) 5,000 UNITS/ML 1ML VIAL SQ SCH ×3 (06:17→21:25)
[2019-03-15 06:38] LABS: BASO % 0.5 % (0-2.0); EOS % 4.6 % (0-4.5); HEMATOCRIT 35.2 % (35.4-49); HEMOGLOBIN 11.8 GM/dL (11.7-16.9); LYMPH % 16.1 % (8-40); MCH 26.5 pg (25.7-33.7); MCHC 33.5 g/dl (32.0-35.9); MEAN CELL VOLUME 79.1 fl (80-96); MEAN PLT VOLUME 8.2 fl (7.5-11.1); MONO % 9.2 % (3.8-10.2); NEUT % 69.6 % (42.8-82.8); PLATELET COUNT 255 K/MM3 (134-434); RBC 4.45 M/mm3 (4.00-5.60); RDW 16.3 % (11.9-15.9); WHITE BLOOD COUNT 5.3 K/mm3 (4.0-10.0)
[2019-03-15 07:07] LABS: ALBUMIN 2.5 g/dl (3.4-5.0); BILIRUBIN,TOTAL 0.6 mg/dL (0.2-1); CALCIUM 8.2 mg/dL (8.5-10.1); CREATININE 1.8 mg/dL (0.55-1.3); POTASSIUM 3.7 mmol/L (3.5-5.1); TOT PROT 6.4 g/dl (6.4-8.2)
[2019-03-15] MEDS: INSULIN (NOVOLOG MIX 70/30) 100 UNITS/ML MDV SQ SCH ×2 (10:00→16:43)
[2019-03-15] MEDS: INSULIN SLIDING SCALE (NOVOLOG) 1 VIAL SQ SCH ×4 (10:00→21:26)
[2019-03-15] MEDS ORDERED: CLOPIDOGREL BISULFATE 75 MG TABLET (FP) PO SCH (10:00)
[2019-03-15] MEDS ORDERED: PATIENT'S OWN MEDICATION (NON-FORMULARY) (Insulin (Novolog 70/30) [Novolog Mix 70/30 Flexp SQ SCH (10:00)
[2019-03-15] MEDS: PANTOPRAZOLE 40 MG TABLET PO SCH (10:01)
[2019-03-15] MEDS: PIPERACILLIN/TAZOB 2.25 GM 2.25 GM in DEXTROSE 5%-WATER - 50 ML IVPB SCH ×5 (10:01→21:24)
[2019-03-15] MEDS: LOSARTAN POTASSIUM 25 MG TABLET PO SCH (10:01)
[2019-03-15] MEDS: TORSEMIDE 20 MG TABLET (FP) PO SCH (10:01)
[2019-03-15] MEDS: LIRAGLUTIDE 0.6 MG/0.1 ML PEN.INJCTR SQ SCH (12:04)
[2019-03-15] MEDS ORDERED: DEXTROSE 5%-WATER - 50 ML IVPB ONE ×2 (14:24→21:03)
[2019-03-15] MEDS ORDERED: PIPERACILLIN/TAZOBACTAM 2.25 GM VIAL IVPB ONE ×2 (14:24→21:03)
--- NOTE | 2019-03-15 14:34 | PN ---
Progress Note (short form) - Note Progress Note: ID Diabetic foot ulcer Osteomyelitis of the fifth MTP joint s/p angioplasty left foot / ckd dm cad he refuses to let me examine the foot/ulcer not much to add prior cultures in February are negative vanco/zosyn is reasonable pending cultures per history and physical - plan for amputation 03/18 per vascular please check vancomycin trough please call back as needed Problem List - Problems (1) Cellulitis Code(s): L03.90 - CELLULITIS, UNSPECIFIED (2) Diabetic foot ulcer Code(s): E11.621 - TYPE 2 DIABETES MELLITUS WITH FOOT ULCER; L97.509 - NON- PRESSURE CHRONIC ULCER OTH PRT UNSP FOOT W UNSP SEVERITY Qualifiers: Diabetic foot ulcer location: unspecified part of foot Diabetes mellitus type: other specified (including DESTINY) Laterality: unspecified laterality Non-pressure ulcer stage: unspecified non-pressure ulcer stage Qualified Code( s): E13.621 - Other specified diabetes mellitus with foot ulcer; L97.509 - Non- pressure chronic ulcer of other part of unspecified foot with unspecified severity (3) Osteomyelitis Code(s): M86.9 - OSTEOMYELITIS, UNSPECIFIED (4) PVD (peripheral vascular disease) Code(s): I73.9 - PERIPHERAL VASCULAR DISEASE, UNSPECIFIED
--- NOTE | 2019-03-15 15:33 | EKG ---
Test Reason : Blood Pressure : / mmHG Vent. Rate : 069 BPM Atrial Rate : 069 BPM P-R Int : 080 ms QRS Dur : 110 ms QT Int : 428 ms P-R-T Axes : 008 -22 -10 degrees QTc Int : 458 ms SINUS RHYTHM WITH SHORT AL INCOMPLETE RIGHT BUNDLE BRANCH BLOCK NONSPECIFIC ST AND T WAVE ABNORMALITY ABNORMAL ECG Confirmed by KIM EPSTEIN MD ([id number]) on 03/15/2019 3:32:50 PM Referred By: Confirmed By:KIM EPSTEIN MD
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
[2019-03-15] MEDS: CLOPIDOGREL BISULFATE 75 MG TABLET (FP) PO SCH (16:39)
[2019-03-15] MEDS: ASPIRIN COATED 81 MG TABLET.EC PO SCH (17:01)
[2019-03-15] MEDS ORDERED: INSULIN (NOVOLOG) ASPART 100 UNITS/ML 10ML VIAL ONE (17:54)
[2019-03-15] MEDS ORDERED: INSULIN (NOVOLOG MIX 70/30) 100 UNITS/ML MDV SQ ONE (17:54)
[2019-03-15] MEDS ORDERED: PT OWN MED DRAWER 7, Y5N ONE (17:54)
--- NOTE | 2019-03-15 18:02 | CONS ---
DATE OF CONSULTATION: DATE OF DICTATION: 03/15/2019 HISTORY OF PRESENT ILLNESS: This is a 64-year-old man with past medical history of diabetes, obesity, coronary artery disease, remote history of right TMA. He has recently had an ulcer on his left foot; he was hospitalized for this in mid February, at which time he had debridement of the area in the soft tissue. He had a bone biopsy done as well that was negative for any bacteria. He refused an MRI during that admission. He was discharged home on oral Augmentin to follow up with his vascular surgeon, and he was doing VAC dressings at home. He reports that his ulcer worsened. He yesterday apparently underwent an angioplasty of his left leg, and he was referred to the ER by Dr. Ba for antibiotics in anticipation of possible amputation, I guess of the left 5th toe on Monday. PAST MEDICAL HISTORY: Notable for history of coronary artery disease, congestive heart failure, hypertension, hyperlipidemia, diabetes, obesity. SURGICAL HISTORY: Cornea transplants x3, right foot partial amputation 2016. He had a transmetatarsal amputation as well. He has had multiple stents done at [facility]. 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 He lives at home with his family. He stopped smoking in 2016. REVIEW OF SYSTEMS: He reports he is otherwise completely well. He has had no fevers or chills associated with this ulcer. PHYSICAL EXAMINATION: General: He is awake and alert. Vital Signs: Temperature is 97.4, pulse is 63, blood pressure 131/77, respiratory rate 20, weighs 121 kg. HEENT: Normocephalic. Eyes are anicteric. Neck: Supple. Lungs: Clear to auscultation. Heart: Regular rate and rhythm. Abdomen: Soft, nontender. Extremities: He has a dressing on his foot that he does not wish me to remove or examine. LABORATORY: Notable for white count of 5.3, hemoglobin 11.8, platelets of 255. BUN and creatinine are 14 and 1.8. His hemoglobin A1c is 8.3. His CRP is 5.9. X-ray of the foot is consistent with osteomyelitis of the 5th MTP joint of the left foot. IMPRESSION: In summary, this is a 64-year-old man with a diabetic foot ulcer, osteomyelitis of the fifth metatarsophalangeal joint, status post angioplasty of the left foot on March 14, chronic kidney disease, diabetes, and coronary artery disease. let me examine the foot and the ulcer, so given this there is really not much to add. His prior cultures in February are negative. Vancomycin and Zosyn appear to be reasonable pending cultures. Per the history and physical in the chart, plan is for amputation I assume of the fifth metatarsophalangeal on February 15 per Vascular. Would check a vancomycin trough before the fourth dose. Please call back if I can be of any further assistance. EMMA MAC M.D. [id number]
--- NOTE | 2019-03-15 18:10 | PN ---
Physical Exam: SUBJECTIVE: Patient seen and examined NAEON Complaint of Left foot pain, decreased sensation overall. Wants to have a amputation instead of a debridement OBJECTIVE: Vital Signs Period Temp Pulse Resp BP Sys/Peter Pulse Ox Last 24 Hr 98.1 F-974 F 58-70 18-20 124-135/74-93 96-99 GENERAL: The patient is awake, alert, and fully oriented, in no acute distress. HEAD: NC/AT EYES: extraocular movements intact, sclera anicteric, conjunctiva clear. No ptosis. ENT: Ears normal, nares patent, oropharynx clear without exudates, moist mucous membranes. NECK: Trachea midline, full range of motion, supple. LUNGS: Breath sounds equal, clear to auscultation bilaterally, no wheezes, no crackles, no accessory muscle use. HEART: Regular rate and rhythm, S1, S2 without murmur, rub or gallop. ABDOMEN: Soft, nontender, nondistended, normoactive bowel sounds, no guarding, no rebound. EXTREMITIES: 2+ pulses of radials b/l. RLE s/p TMA with 1+ PT pulse. LLE w/ 1+ pitting edema up the knee, surrounding erythema. L foot with lateral open wound , oblong shape; exposed subcutaneous tissues with areas of eschar. Mild TTP of L foot wound NEUROLOGICAL: Cranial nerves II through XII grossly intact. Normal speech, gait not observed. SKIN: Warm, dry, normal turgor, no rashes or lesions noted Laboratory Results - last 24 hr 03/14/19 03/14/19 03/14/19 22:00 22:00 22:00 WBC 7.1 RBC 4.80 Hgb 13.1 Hct 38.0 MCV 79.2 L MCH 27.2 MCHC 34.4 RDW 16.4 H Plt Count 332 MPV 8.4 Absolute Neuts (auto) 4.9 Neutrophils % 70.2 Lymphocytes % 14.4 Monocytes % 10.0 Eosinophils % 4.7 H Basophils % 0.7 Nucleated RBC % 0 ESR PT with INR INR PTT (Actin FS) Sodium 136 Potassium 3.4 L Chloride 100 Carbon Dioxide 26 Anion Gap 10 BUN 52.1 H Creatinine 2.0 H Est GFR (CKD-EPI)AfAm 40.26 Est GFR (CKD-EPI)NonAf 34.74 POC Glucometer Random Glucose 99 Hemoglobin A1c % Calcium 8.5 Total Bilirubin 0.4 AST 39 H ALT 40 Alkaline Phosphatase 87 C-Reactive Protein Total Protein 7.3 Albumin 3.0 L Urine Color Urine Appearance Urine pH Ur Specific [place] Urine Protein Urine Glucose (UA) Urine Ketones Urine Blood Urine Nitrite Urine Bilirubin Urine Urobilinogen Ur Leukocyte Esterase Urine WBC (Auto) Urine RBC (Auto) Urine Casts (Auto) U Epithel Cells (Auto) Urine Bacteria (Auto) Blood Type A POSITIVE Antibody Screen Negative 03/14/19 03/15/19 03/15/19 22:00 03:33 05:50 WBC RBC Hgb Hct MCV MCH MCHC RDW Plt Count MPV Absolute Neuts (auto) Neutrophils % Lymphocytes % Monocytes % Eosinophils % Basophils % Nucleated RBC % ESR PT with INR 12.60 INR 1.07 PTT (Actin FS) 35.4 Sodium 137 Potassium 3.7 Chloride 107 Carbon Dioxide 21 Anion Gap 9 BUN 41.0 H Creatinine 1.8 H Est GFR (CKD-EPI)AfAm 45.73 Est GFR (CKD-EPI)NonAf 39.46 POC Glucometer Random Glucose 182 H Hemoglobin A1c % Calcium 8.2 L Total Bilirubin 0.6 AST 24 ALT 28 Alkaline Phosphatase 66 C-Reactive Protein 5.9 H Total Protein 6.4 Albumin 2.5 L Urine Color Yellow Urine Appearance Clear Urine pH 5.0 Ur Specific [place] 1.019 Urine Protein 2+ H Urine Glucose (UA) 2+ H Urine Ketones Negative Urine Blood Negative Urine Nitrite Negative Urine Bilirubin Negative Urine Urobilinogen 0.2 Ur Leukocyte Esterase Negative Urine WBC (Auto) 0 Urine RBC (Auto) 2 Urine Casts (Auto) 0 U Epithel Cells (Auto) 0.3 Urine Bacteria (Auto) 0.8 Blood Type Antibody Screen 03/15/19 03/15/19 03/15/19 06:00 07:10 09:15 WBC 5.3 RBC 4.45 Hgb 11.8 Hct 35.2 L MCV 79.1 L MCH 26.5 MCHC 33.5 RDW 16.3 H Plt Count 255 D MPV 8.2 Absolute Neuts (auto) 3.7 Neutrophils % 69.6 Lymphocytes % 16.1 Monocytes % 9.2 Eosinophils % 4.6 H Basophils % 0.5 Nucleated RBC % 0 ESR PT with INR INR PTT (Actin FS) Sodium Potassium Chloride Carbon Dioxide Anion Gap BUN Creatinine Est GFR (CKD-EPI)AfAm Est GFR (CKD-EPI)NonAf POC Glucometer 212 Random Glucose Hemoglobin A1c % 8.3 H Calcium Total Bilirubin AST ALT Alkaline Phosphatase C-Reactive Protein Total Protein Albumin Urine Color Urine Appearance Urine pH Ur Specific [place] Urine Protein Urine Glucose (UA) Urine Ketones Urine Blood Urine Nitrite Urine Bilirubin Urine Urobilinogen Ur Leukocyte Esterase Urine WBC (Auto) Urine RBC (Auto) Urine Casts (Auto) U Epithel Cells (Auto) Urine Bacteria (Auto) Blood Type Antibody Screen 03/15/19 03/15/19 03/15/19 09:43 12:28 13:20 WBC RBC Hgb Hct MCV MCH MCHC RDW Plt Count MPV Absolute Neuts (auto) Neutrophils % Lymphocytes % Monocytes % Eosinophils % Basophils % Nucleated RBC % ESR 72 H PT with INR INR PTT (Actin FS) Sodium Potassium Chloride Carbon Dioxide Anion Gap BUN Creatinine Est GFR (CKD-EPI)AfAm Est GFR (CKD-EPI)NonAf POC Glucometer 196 143 Random Glucose Hemoglobin A1c % Calcium Total Bilirubin AST ALT Alkaline Phosphatase C-Reactive Protein Total Protein Albumin Urine Color Urine Appearance Urine pH Ur Specific [place] Urine Protein Urine Glucose (UA) Urine Ketones Urine Blood Urine Nitrite Urine Bilirubin Urine Urobilinogen Ur Leukocyte Esterase Urine WBC (Auto) Urine RBC (Auto) Urine Casts (Auto) U Epithel Cells (Auto) Urine Bacteria (Auto) Blood Type Antibody Screen 03/15/19 16:44 WBC RBC Hgb Hct MCV MCH MCHC RDW Plt Count MPV Absolute Neuts (auto) Neutrophils % Lymphocytes % Monocytes % Eosinophils % Basophils % Nucleated RBC % ESR PT with INR INR PTT (Actin FS) Sodium Potassium Chloride Carbon Dioxide Anion Gap BUN Creatinine Est GFR (CKD-EPI)AfAm Est GFR (CKD-EPI)NonAf POC Glucometer 167 Random Glucose Hemoglobin A1c % Calcium Total Bilirubin AST ALT Alkaline Phosphatase C-Reactive Protein Total Protein Albumin Urine Color Urine Appearance Urine pH Ur Specific [place] Urine Protein Urine Glucose (UA) Urine Ketones Urine Blood Urine Nitrite Urine Bilirubin Urine Urobilinogen Ur Leukocyte Esterase Urine WBC (Auto) Urine RBC (Auto) Urine Casts (Auto) U Epithel Cells (Auto) Urine Bacteria (Auto) Blood Type Antibody Screen Active Medications Generic Name Dose Route Start Last Admin Trade Name Freq PRN Reason Stop Dose Admin Aspirin 81 mg 03/15/19 14:45 03/15/19 17:01 Ecotrin - PO 81 mg DAILY IGGY Administration Atorvastatin Calcium 40 mg 03/15/19 22:00 Lipitor - PO HS IGGY Clopidogrel Bisulfate 75 mg 03/15/19 14:45 03/15/19 16:39 Plavix - PO 75 mg DAILY IGGY Administration Heparin Sodium (Porcine) 5,000 unit 03/15/19 06:00 03/15/19 14:28 Heparin - SQ 5,000 unit TID IGGY Administration Vancomycin HCl 1,000 mg in 250 mls @ 166.667 mls/hr 03/15/19 22:00 Vancomycin (Pre-Docked) IVPB Q24H IGGY Protocol Piperacillin Sod/Tazobactam 50 mls @ 100 mls/hr 03/15/19 09:00 03/15/19 15:31 Sod 2.25 gm/ Dextrose IVPB Not Given Q6H-IV IGGY Protocol Insulin Aspart 1 vial 03/15/19 07:00 03/15/19 16:46 Novolog Vial Sliding Scale - SQ 2 units ACHS IGGY Administration Protocol Insulin Aspart 60 units 03/15/19 08:15 03/15/19 16:43 Novolog Mix 70/30 Vial SQ 60 units BIDAC IGGY Administration Liraglutide 1.8 mg 03/15/19 10:00 03/15/19 12:04 Victoza - SQ 1.8 mg DAILY IGGY Administration Losartan Potassium 25 mg 03/15/19 10:00 03/15/19 10:01 Cozaar - PO 25 mg DAILY IGGY Administration Metoprolol Succinate 100 mg 03/15/19 10:00 03/15/19 10:01 Toprol Xl - PO 100 mg DAILY IGGY Administration Oxycodone HCl 5 mg 03/15/19 02:02 03/15/19 17:21 Roxicodone - PO 5 mg Q6H PRN Administration PAIN LEVEL 7 - 10 Pantoprazole Sodium 40 mg 03/15/19 10:00 03/15/19 10:01 Protonix - PO 40 mg DAILY IGGY Administration Torsemide 60 mg 03/15/19 10:00 03/15/19 10:01 Demadex - PO 60 mg DAILY IGGY Administration ASSESSMENT/PLAN: 52M with PMH of CAD (s/p stents in 2019), CKD, HTN, HLD, and DM (s/p RLE TMA; s/ p LLE foot angio 03/14/19). He presented to the ER fter being referred by his vascular surgeon, Dr. Ba, after angioplasty. Dr. Ba referred him to the ER with the recommendation for admission and antibiotics in anticipation of a possible amputation of the left foot on Monday. # persistent LLE foot wound w/ possible OM - s/p angio 2/6 > ESR 72, CRP 5.9 > XRay Left Foot: OM of 5th MTPJ > left foot wound cx --pending > BCX --pending - abx regimen/ID(Brendon) consulted: -- vanc + zyosyn - Pain regimen: --Oxycodone 5mg - Vascular Sx(Jesenia) consulted # chronic IDDM > HbA1c 8.3 - Victoza, Novolog ISS ACHS, Novolog 70/30 TIDAC - hold home Jardiance # chronic CKD > Cr 2.0 - Will trend, if it rises will consult Nephro (sees Dr. Reynoso) #Hx of CAD with stents #Hx of ?vascular stents - cw ASA + plavix #Hx of HTN - home home metoprolol, losartan, Torsemide #Hx of HLD - home Lipitor #Hx of BRITTNEY - Resumed CPAP (pt on CPAP at home) - Will keep O2 >93% #FEN - Monitor electrolytes - Na, DM diet #Prophylaxis - Heparin SQ 5000 - Protonix Visit type - Emergency Visit Emergency Visit: No - New Patient This patient is new to me today: Yes Date on this admission: 03/15/19 - Critical Care Critical Care patient: No ATTENDING PHYSICIAN STATEMENT I saw and evaluated the patient. I reviewed the resident's note and discussed the case with the resident. I agree with the resident's findings and plan as documented. SUBJECTIVE: OBJECTIVE: ASSESSMENT AND PLAN:
[2019-03-15] MEDS: ATORVASTATIN CA 40 MG TABLET (FP) PO SCH (21:25)
[2019-03-15] MEDS: VANCOMYCIN 1 GRAM (PRE-DOCKED) 1,000 MG/250 ML BAG IVPB SCH (21:58)
[2019-03-16] MEDS ORDERED: DEXTROSE 5%-WATER - 50 ML IVPB ONE ×4 (03:27→21:13)
[2019-03-16] MEDS ORDERED: PIPERACILLIN/TAZOBACTAM 2.25 GM VIAL IVPB ONE ×4 (03:27→21:13)
[2019-03-16] MEDS: PIPERACILLIN/TAZOB 2.25 GM 2.25 GM in DEXTROSE 5%-WATER - 50 ML IVPB SCH ×4 (03:32→21:35)
[2019-03-16] MEDS: HEPARIN NA (PORCINE) 5,000 UNITS/ML 1ML VIAL SQ SCH ×3 (06:29→21:35)
[2019-03-16] MEDS: INSULIN SLIDING SCALE (NOVOLOG) 1 VIAL SQ SCH ×2 (06:29→12:09)
[2019-03-16] MEDS: oxyCODONE HCL 5 MG TABLET PO PRN ×2 (06:35→21:49)
[2019-03-16 06:40] LABS: HEMATOCRIT 33.5 % (35.4-49); HEMOGLOBIN 11.3 GM/dL (11.7-16.9); MCH 26.6 pg (25.7-33.7); MCHC 33.7 g/dl (32.0-35.9); MEAN PLT VOLUME 8.3 fl (7.5-11.1); PLATELET COUNT 273 K/MM3 (134-434); RBC 4.24 M/mm3 (4.00-5.60); RDW 16.5 % (11.9-15.9); WHITE BLOOD COUNT 5.8 K/mm3 (4.0-10.0)
[2019-03-16] MEDS ORDERED: INSULIN (NOVOLOG MIX 70/30) 100 UNITS/ML MDV SQ SCH (07:00)
[2019-03-16 07:05] LABS: BLOOD UREA NITROGEN 38.2 mg/dL (7-18); CALCIUM 8.5 mg/dL (8.5-10.1); CREATININE 1.8 mg/dL (0.55-1.3); MAGNESIUM 2.4 mg/dL (1.8-2.4); PHOSPHOROUS 3.5 mg/dL (2.5-4.9); POTASSIUM 3.6 mmol/L (3.5-5.1)
[2019-03-16] MEDS ORDERED: PT OWN MED DRAWER 7, Y5N ONE ×2 (07:55→10:00)
[2019-03-16] MEDS: TORSEMIDE 20 MG TABLET (FP) PO SCH (09:57)
[2019-03-16] MEDS: PANTOPRAZOLE 40 MG TABLET PO SCH (09:58)
[2019-03-16] MEDS: LIRAGLUTIDE 0.6 MG/0.1 ML PEN.INJCTR SQ SCH (10:01)
[2019-03-16] MEDS: LOSARTAN POTASSIUM 25 MG TABLET PO SCH (10:03)
[2019-03-16] MEDS: CLOPIDOGREL BISULFATE 75 MG TABLET (FP) PO SCH (10:21)
[2019-03-16] MEDS: ASPIRIN COATED 81 MG TABLET.EC PO SCH (10:21)
--- NOTE | 2019-03-16 11:58 | PN ---
Progress Note (short form) - Note Progress Note: No complaints. Wound with serous drainage. Discussed plan for left 5th ray amputation, debridement and VAC dressings.
--- NOTE | 2019-03-16 12:43 | PN ---
Physical Exam: SUBJECTIVE: Patient seen and examined NAEON Tolerated CPAP last night Endorses rare episodes of shooting pain to the Left foot. Denies increased drainage to the Left foot wound OBJECTIVE: Vital Signs Period Temp Pulse Resp BP Sys/Peter Pulse Ox Last 24 Hr 97.8 F-974 F 63-75 18-22 105-131/54-77 95-98 GENERAL: The patient is awake, alert, and fully oriented, in no acute distress. Obese HEAD: NC/AT EYES: extraocular movements intact, sclera anicteric, conjunctiva clear. No ptosis. ENT: Ears normal, nares patent, oropharynx clear without exudates, moist mucous membranes. NECK: Trachea midline, full range of motion, supple. LUNGS: Breath sounds equal, clear to auscultation bilaterally, no wheezes, no crackles, no accessory muscle use. HEART: Regular rate and rhythm, S1, S2 without murmur, rub or gallop. ABDOMEN: Soft, nontender, nondistended, normoactive bowel sounds, no guarding, no rebound. EXTREMITIES: 2+ pulses of radials b/l. RLE s/p TMA with 1+ PT pulse. LLE w/ 1+ pitting edema up the knee, surrounding erythema. L foot with lateral open wound , oblong shape; exposed subcutaneous tissues with areas of eschar. Mild TTP of L foot wound NEUROLOGICAL: Cranial nerves II through XII grossly intact. Normal speech, gait not observed. SKIN: Warm, dry, normal turgor, no rashes or lesions noted Laboratory Results - last 24 hr 03/15/19 03/15/19 03/15/19 05:50 13:20 16:44 WBC RBC Hgb Hct MCV MCH MCHC RDW Plt Count MPV ESR 72 H Sodium 137 Potassium 3.7 Chloride 107 Carbon Dioxide 21 Anion Gap 9 BUN 41.0 H Creatinine 1.8 H Est GFR (CKD-EPI)AfAm 45.73 Est GFR (CKD-EPI)NonAf 39.46 POC Glucometer 167 Random Glucose 182 H Calcium 8.2 L Phosphorus Magnesium Total Bilirubin 0.6 AST 24 ALT 28 Alkaline Phosphatase 66 C-Reactive Protein 5.9 H Total Protein 6.4 Albumin 2.5 L 03/15/19 03/16/19 03/16/19 21:22 05:58 06:05 WBC 5.8 RBC 4.24 Hgb 11.3 L Hct 33.5 L MCV 79.0 L MCH 26.6 MCHC 33.7 RDW 16.5 H Plt Count 273 MPV 8.3 ESR Sodium Potassium Chloride Carbon Dioxide Anion Gap BUN Creatinine Est GFR (CKD-EPI)AfAm Est GFR (CKD-EPI)NonAf POC Glucometer 144 165 Random Glucose Calcium Phosphorus Magnesium Total Bilirubin AST ALT Alkaline Phosphatase C-Reactive Protein Total Protein Albumin 03/16/19 03/16/19 06:05 11:53 WBC RBC Hgb Hct MCV MCH MCHC RDW Plt Count MPV ESR Sodium 139 Potassium 3.6 Chloride 108 H Carbon Dioxide 23 Anion Gap 8 BUN 38.2 H Creatinine 1.8 H Est GFR (CKD-EPI)AfAm 45.73 Est GFR (CKD-EPI)NonAf 39.46 POC Glucometer 100 Random Glucose 180 H Calcium 8.5 Phosphorus 3.5 Magnesium 2.4 Total Bilirubin AST ALT Alkaline Phosphatase C-Reactive Protein Total Protein Albumin Active Medications Generic Name Dose Route Start Last Admin Trade Name Freq PRN Reason Stop Dose Admin Aspirin 81 mg 03/15/19 14:45 03/16/19 10:21 Ecotrin - PO 81 mg DAILY IGGY Administration Atorvastatin Calcium 40 mg 03/15/19 22:00 03/15/19 21:25 Lipitor - PO 40 mg HS IGGY Administration Clopidogrel Bisulfate 75 mg 03/15/19 14:45 03/16/19 10:21 Plavix - PO 75 mg DAILY IGGY Administration Heparin Sodium (Porcine) 5,000 unit 03/15/19 06:00 03/16/19 06:29 Heparin - SQ 5,000 unit TID IGGY Administration Vancomycin HCl 1,000 mg in 250 mls @ 166.667 mls/hr 03/15/19 22:00 03/15/19 21:58 Vancomycin (Pre-Docked) IVPB 166.667 mls/hr Q24H IGGY Administration Protocol Piperacillin Sod/Tazobactam 50 mls @ 100 mls/hr 03/15/19 09:00 03/16/19 08:33 Sod 2.25 gm/ Dextrose IVPB 100 mls/hr Q6H-IV IGGY Administration Protocol Insulin Aspart 1 vial 03/15/19 07:00 03/16/19 12:09 Novolog Vial Sliding Scale - SQ Not Given ACHS [facility] Protocol Insulin Aspart 60 units 03/16/19 16:30 Novolog Mix 70/30 Vial SQ BIDAC IGGY Liraglutide 1.8 mg 03/15/19 10:00 03/16/19 10:01 Victoza - SQ 1.8 mg DAILY IGGY Administration Losartan Potassium 25 mg 03/15/19 10:00 03/16/19 10:03 Cozaar - PO 25 mg DAILY IGGY Administration Metoprolol Succinate 100 mg 03/15/19 10:00 03/16/19 10:03 Toprol Xl - PO 100 mg DAILY IGGY Administration Oxycodone HCl 5 mg 03/15/19 02:02 03/16/19 06:35 Roxicodone - PO 5 mg Q6H PRN Administration PAIN LEVEL 7 - 10 Pantoprazole Sodium 40 mg 03/15/19 10:00 03/16/19 09:58 Protonix - PO 40 mg DAILY IGGY Administration Torsemide 60 mg 03/15/19 10:00 03/16/19 09:57 Demadex - PO 60 mg DAILY IGGY Administration ASSESSMENT/PLAN: 52M with PMH of CAD (s/p stents in 2018), CKD, HTN, HLD, and DM (s/p RLE TMA; s/ p LLE foot angio 03/14/19). He presented to the ER fter being referred by his vascular surgeon, Dr. Ba, after angioplasty. Dr. Ba referred him to the ER with the recommendation for admission and antibiotics in anticipation of a possible Left foot 5th ray amp + wound vac on 03/17/19. # persistent LLE foot wound w/ possible OM - s/p angio 03/14 > ESR 72, CRP 5.9 > XRay Left Foot: OM of 5th MTPJ > left foot wound cx: Proteus, Group D Strep or Enterococcus > BCX: NGTD - abx regimen/ID(Brendon) consulted: -- vanc + zyosyn - Pain regimen: --Oxycodone 5mg - Vascular Sx(Jesenia) consulted: --plan for Left foot 5th ray amp + wound vac on 03/17/19 # chronic IDDM > HbA1c 8.3 - Victoza, Novolog ISS ACHS, Novolog 70/30 BIDAC - hold home Jardiance # chronic CKD > Cr 2.0 - Will trend, if it rises will consult Nephro (sees Dr. Reynoso) #Hx of CAD with stents #Hx of ?vascular stents - cw ASA + plavix # chronic HTN # chronic HFpEF - home home metoprolol, losartan, Torsemide #Hx of HLD - home Lipitor #Hx of BRITTNEY - Resumed CPAP (pt on CPAP at home) - Will keep O2 >93% #FEN - Monitor electrolytes - Na, DM diet #Prophylaxis - Heparin SQ 5000 - Protonix Visit type - Emergency Visit Emergency Visit: No - New Patient This patient is new to me today: No - Critical Care Critical Care patient: No ATTENDING PHYSICIAN STATEMENT I saw and evaluated the patient. I reviewed the resident's note and discussed the case with the resident. I agree with the resident's findings and plan as documented. SUBJECTIVE: OBJECTIVE: ASSESSMENT AND PLAN:
--- NOTE | 2019-03-16 13:54 | PN ---
Teaching Attending Note Name of Resident: Mono Edwards ATTENDING PHYSICIAN STATEMENT I saw and evaluated the patient. I reviewed the resident's note and discussed the case with the resident. I agree with the resident's findings and plan as documented. SUBJECTIVE: No fever or chills. No LOZANO . has pain in L foot. No N?V. no SOB or CP OBJECTIVE: NAD, MMM, EOMI. Round pupils. morbidly obese. CV: RRR, no MRG Lungs: CTAB Ext: trace edema and hyperpigmentation on both legs. R woods laceration ( 1 cm ) no drainage . L foot with Lateral deep ulcer with necrotic posterior margins . no discharge today but slough .slight erythema but no tenderness around site. no tenderness over foot or toes. . ASSESSMENT AND PLAN: 64 y/o man with h/o peripheral vascular disease, CAD status post stents, CKD, hypertension, dyslipidemia, peripheral neuropathy, diabetes mellitus type 2, status post R Foot TMA in 2016, s/p angiplasty 03/[address] Ba's office, who was sent fro infected L foot ucler 1- Infected L foot ulcer. - cont vanco and zosyn - amputation planned for 03/18. - vanco trough on Monday before dose - will follow path for amputation margins - wound cx : proteus and group D strep. will follow final 2- PVD: cont aspirin and plavix . cont statin 3- DM: cont 70/30 BID and SSI will adjust dose before sx 4- CKD: Cr at base line. - cont losartan - cont torsemide 5- HTN: - cont toprol and losartan DVT px: heparin.
[2019-03-16] MEDS: INSULIN (NOVOLOG MIX 70/30) 100 UNITS/ML MDV SQ SCH (17:41)
[2019-03-16] MEDS: ATORVASTATIN CA 40 MG TABLET (FP) PO SCH (21:35)
[2019-03-16] MEDS: VANCOMYCIN 1 GRAM (PRE-DOCKED) 1,000 MG/250 ML BAG IVPB SCH (22:26)
[2019-03-17] MEDS ORDERED: DEXTROSE 5%-WATER - 50 ML IVPB ONE ×4 (01:14→20:55)
[2019-03-17] MEDS ORDERED: PIPERACILLIN/TAZOBACTAM 2.25 GM VIAL IVPB ONE ×4 (01:14→20:55)
[2019-03-17] MEDS: PIPERACILLIN/TAZOB 2.25 GM 2.25 GM in DEXTROSE 5%-WATER - 50 ML IVPB SCH ×4 (04:00→20:59)
[2019-03-17] MEDS: HEPARIN NA (PORCINE) 5,000 UNITS/ML 1ML VIAL SQ SCH ×3 (06:31→21:12)
[2019-03-17] MEDS: INSULIN (NOVOLOG MIX 70/30) 100 UNITS/ML MDV SQ SCH ×2 (06:56→16:38)
[2019-03-17 06:59] LABS: HEMATOCRIT 32.1 % (35.4-49); HEMOGLOBIN 10.7 GM/dL (11.7-16.9); MCH 26.3 pg (25.7-33.7); MCHC 33.4 g/dl (32.0-35.9); MEAN CELL VOLUME 78.7 fl (80-96); MEAN PLT VOLUME 8.3 fl (7.5-11.1); PLATELET COUNT 284 K/MM3 (134-434); RBC 4.08 M/mm3 (4.00-5.60); RDW 16.6 % (11.9-15.9); WHITE BLOOD COUNT 6.2 K/mm3 (4.0-10.0)
[2019-03-17 07:17] LABS: CREATININE 1.9 mg/dL (0.55-1.3); MAGNESIUM 2.1 mg/dL (1.8-2.4); PHOSPHOROUS 3.6 mg/dL (2.5-4.9); POTASSIUM 3.5 mmol/L (3.5-5.1)
[2019-03-17] MEDS ORDERED: INSULIN (NOVOLOG MIX 70/30) 100 UNITS/ML MDV SQ ONE (07:46)
[2019-03-17] MEDS: LOSARTAN POTASSIUM 25 MG TABLET PO SCH (10:06)
[2019-03-17] MEDS: TORSEMIDE 20 MG TABLET (FP) PO SCH (10:06)
[2019-03-17] MEDS: CLOPIDOGREL BISULFATE 75 MG TABLET (FP) PO SCH (10:06)
[2019-03-17] MEDS: ASPIRIN COATED 81 MG TABLET.EC PO SCH (10:06)
[2019-03-17] MEDS: PANTOPRAZOLE 40 MG TABLET PO SCH (10:07)
[2019-03-17] MEDS: oxyCODONE HCL 5 MG TABLET PO PRN (11:15)
[2019-03-17] MEDS: INSULIN SLIDING SCALE (NOVOLOG) 1 VIAL SQ SCH (11:24)
[2019-03-17] MEDS: LIRAGLUTIDE 0.6 MG/0.1 ML PEN.INJCTR SQ SCH (12:25)
[2019-03-17] MEDS ORDERED: INSULIN (NOVOLOG MIX 70/30) 100 UNITS/ML MDV SQ SCH (17:34)
[2019-03-17] MEDS ORDERED: MAG HYDROX/AL HYDROX/SIMETH 30 ML UNIT-DOSE CUP PO ONE (18:02)
--- NOTE | 2019-03-17 18:35 | PN ---
Progress Note (short form) - Note Progress Note: Subjective: no fever or chills. No LOZANO . no apin , no SOB Objective: Vital Signs: Last Vital Signs Temp Pulse Resp BP Pulse Ox 97.6 F 63 20 116/69 99 03/17/19 15:07 03/17/19 15:07 03/17/19 15:07 03/17/19 15:07 03/17/19 09:00 Laboratory Results - last 24 hr 03/16/19 03/16/19 03/17/19 21:30 22:11 06:35 WBC RBC Hgb Hct MCV MCH MCHC RDW Plt Count MPV Sodium Potassium Chloride Carbon Dioxide Anion Gap BUN Creatinine Est GFR (CKD-EPI)AfAm Est GFR (CKD-EPI)NonAf POC Glucometer 94 117 Random Glucose Calcium Phosphorus Magnesium Vancomycin Pre-Dose 9.1 L 03/17/19 03/17/19 03/17/19 06:44 06:44 11:18 WBC 6.2 RBC 4.08 Hgb 10.7 L Hct 32.1 L MCV 78.7 L MCH 26.3 MCHC 33.4 RDW 16.6 H Plt Count 284 MPV 8.3 Sodium 140 Potassium 3.5 Chloride 108 H Carbon Dioxide 25 Anion Gap 7 L BUN 34.0 H Creatinine 1.9 H Est GFR (CKD-EPI)AfAm 42.84 Est GFR (CKD-EPI)NonAf 36.96 POC Glucometer 55 Random Glucose 106 Calcium 8.0 L Phosphorus 3.6 Magnesium 2.1 Vancomycin Pre-Dose 03/17/19 03/17/19 12:18 16:32 WBC RBC Hgb Hct MCV MCH MCHC RDW Plt Count MPV Sodium Potassium Chloride Carbon Dioxide Anion Gap BUN Creatinine Est GFR (CKD-EPI)AfAm Est GFR (CKD-EPI)NonAf POC Glucometer 122 140 Random Glucose Calcium Phosphorus Magnesium Vancomycin Pre-Dose Physical Exam: NAD, MMM, EOMI. round pupils. morbidly obese CV: RRR, no MRG Lungs: CTAB Ext: trace edema and hyperpigmentation on both legs. R woods laceration ( 1 cm ) no drainage R TMT amputation in R foot. clean with no drainage L foot with clean dressing. ASSESSMENT AND PLAN: 64 y/o man with h/o peripheral vascular disease, CAD status post stents, CKD, hypertension, dyslipidemia, peripheral neuropathy, diabetes mellitus type 2, status post R Foot TMA in 2016, s/p angiplasty 03/[address] Ba's office, who was sent fro infected L foot ucler 1- Infected L foot ulcer. - cont vanco and zosyn - amputation planned for 03/18. - vanco trough noted - wound cx withproteus and E faecalis. covered with current Abx - will follow path for amputation margins - follow wound cx 2- PVD: cont aspirin and plavix . cont statin 3- Dm : hypoglycemic today. - decrease dose of insulin 70/30 . hold am dose due to NPO status 4- CKD: Cr at base line. - cont losartan - cont torsemide 5- HTN: - cont toprol and losartan DVT px: heparin Visit type - Emergency Visit Emergency Visit: Yes ED Registration Date: 03/15/19 Care time: The patient presented to the Emergency Department on the above date and was hospitalized for further evaluation of their emergent condition. - New Patient This patient is new to me today: No - Critical Care Critical Care patient: No
[2019-03-17] MEDS: ATORVASTATIN CA 40 MG TABLET (FP) PO SCH (21:01)
[2019-03-17] MEDS: VANCOMYCIN 1 GRAM (PRE-DOCKED) 1,000 MG/250 ML BAG IVPB SCH (22:34)
[2019-03-18] MEDS ORDERED: DEXTROSE 5%-WATER - 50 ML IVPB ONE ×3 (04:58→20:13)
[2019-03-18] MEDS ORDERED: PIPERACILLIN/TAZOBACTAM 2.25 GM VIAL IVPB ONE ×3 (04:58→20:13)
[2019-03-18] MEDS: PIPERACILLIN/TAZOB 2.25 GM 2.25 GM in DEXTROSE 5%-WATER - 50 ML IVPB SCH ×4 (05:00→20:40)
[2019-03-18 08:50] LABS: BLOOD UREA NITROGEN 28.8 mg/dL (7-18); CALCIUM 8.7 mg/dL (8.5-10.1); CREATININE 1.8 mg/dL (0.55-1.3); POTASSIUM 3.7 mmol/L (3.5-5.1)
[2019-03-18] MEDS: LOSARTAN POTASSIUM 25 MG TABLET PO SCH (10:04)
[2019-03-18] MEDS: PANTOPRAZOLE 40 MG TABLET PO SCH (10:04)
[2019-03-18] MEDS: TORSEMIDE 20 MG TABLET (FP) PO SCH (10:05)
[2019-03-18] MEDS: ASPIRIN COATED 81 MG TABLET.EC PO SCH (10:58)
[2019-03-18] MEDS: CLOPIDOGREL BISULFATE 75 MG TABLET (FP) PO SCH (10:58)
[2019-03-18] MEDS: INSULIN SLIDING SCALE (NOVOLOG) 1 VIAL SQ SCH (11:30)
[2019-03-18] MEDS ORDERED: LIDOCAINE HCL 1%, 10 MG/ML (20ML VIAL) ONE (13:54)
[2019-03-18] MEDS ORDERED: MIDAZOLAM HCL 2 MG/2 ML SINGLE DOSE VIAL ONE (14:15)
[2019-03-18] MEDS ORDERED: KETOROLAC TROMETHAMINE 30 MG/1 ML VIAL ONE (14:25)
[2019-03-18] MEDS ORDERED: DEXAMETHASONE SOD PHOSPHATE 4 MG/1 ML VIAL ONE (14:25)
[2019-03-18] MEDS ORDERED: LIDOCAINE HCL 1%, 10 MG/ML (20ML VIAL) PNB ONE (14:40)
[2019-03-18 14:57] VITALS: BMI 41.2
[2019-03-18] MEDS ORDERED: PROMETHAZINE HCL 25 MG/1 ML VIAL IVPUSH PRN ×2 (15:00→16:09)
[2019-03-18] MEDS ORDERED: oxyCODONE HCL 5 MG TABLET PO PRN ×2 (15:00→16:09)
[2019-03-18] MEDS ORDERED: ONDANSETRON 4 MG/2 ML VIAL IVPUSH PRN ×2 (15:00→16:09)
--- NOTE | 2019-03-18 15:01 | OP ---
Operative Note - Note: Operative Date: 03/18/19 Pre-Operative Diagnosis: Osteomyelitis left 5th ray Operation: Open ray amputation left 5th toe Findings: Exposed metatarsal later foot. Post-Operative Diagnosis: Same as Pre-op Surgeon: Paulo Ba Anesthesiologist/COATINGS INSPECTOR: Josef Rubio Anesthesia: Fractional Specimens Removed: Left 5th ray Estimated Blood Loss (mls): 100
[2019-03-18] MEDS ORDERED: INSULIN (NOVOLOG MIX 70/30) 100 UNITS/ML MDV SQ SCH (16:30)
[2019-03-18] MEDS: oxyCODONE HCL 5 MG TABLET PO PRN (17:42)
--- NOTE | 2019-03-18 18:17 | PN ---
Physical Exam: SUBJECTIVE: Patient seen and examined at bedside. pt states that his foot is causing him pain and has no other complaints. pt is agitated on exam. OBJECTIVE: Vital Signs Period Temp Pulse Resp BP Sys/Peter Pulse Ox Last 24 Hr 97.4 F-98.0 F 52-70 12-21 98-123/57-76 96-99 GENERAL: The patient is awake, alert, and fully oriented, in no acute distress. HEAD: Normal with no signs of trauma. EYES: extraocular movements intact ENT: MMM LUNGS: Breath sounds decreased b/l , no wheezes, no crackles, no accessory muscle use. HEART: Regular rate and rhythm, S1, S2 without murmur, rub or gallop. ABDOMEN: Soft, nontender, nondistended, normoactive bowel sounds, no guarding, no rebound EXTREMITIES: R foot amputation , L foot wound open. NEUROLOGICAL: Cranial nerves II through XII grossly intact. Normal speech SKIN: Warm, dry, normal turgor, no rashes or lesions noted Laboratory Results - last 24 hr 03/17/19 03/17/19 03/18/19 20:50 21:05 06:00 Sodium 140 Potassium 3.7 Chloride 108 H Carbon Dioxide 26 Anion Gap 7 L BUN 28.8 H Creatinine 1.8 H Est GFR (CKD-EPI)AfAm 45.73 Est GFR (CKD-EPI)NonAf 39.46 POC Glucometer 115 Random Glucose 129 H Calcium 8.7 Vancomycin Pre-Dose 10.1 L Current Medications Aspirin (Ecotrin -) 81 mg PO DAILY [facility] Atorvastatin Calcium (Lipitor -) 40 mg PO HS IGGY Clopidogrel Bisulfate (Plavix -) 75 mg PO DAILY [facility] Fentanyl (Sublimaze Injection -) 50 mcg IVPUSH [id number] PRN PRN Reason: PAIN-PACU ORDER X 4 DOSES ONLY Heparin Sodium (Porcine) (Heparin -) 5,000 unit SQ TID IGGY Piperacillin Sod/Tazobactam (Sod 2.25 gm/ Dextrose) 50 mls @ 100 mls/hr IVPB Q6H-IV IGGY; Protocol Vancomycin HCl (Vancomycin (Pre-Docked)) 1,000 mg in 250 mls @ 166.667 mls/hr IVPB Q24H IGGY; Protocol Insulin Aspart (Novolog Vial Sliding Scale -) 1 vial SQ DAILY IGGY; Protocol Insulin Aspart (Novolog Mix 70/30 Vial) 60 units SQ BIDAC [facility] Liraglutide (Victoza -) 1.8 mg SQ DAILY [facility] Losartan Potassium (Cozaar -) 25 mg PO DAILY [facility] Metoprolol Succinate (Toprol Xl -) 100 mg PO DAILY [facility] Ondansetron HCl (Zofran Injection) 4 mg IVPUSH Q6H PRN PRN Reason: NAUSEA AND/OR VOMITING Oxycodone HCl (Roxicodone -) 5 mg PO Q6H PRN PRN Reason: PAIN LEVEL 7 - 10 Last Admin: 03/18/19 17:42 Dose: 5 mg Oxycodone HCl (Roxicodone -) 10 mg PO Q4H PRN PRN Reason: PAIN LEVEL 6-10 Stop: 03/19/19 14:59 Pantoprazole Sodium (Protonix -) 40 mg PO DAILY [facility] Promethazine HCl (Phenergan Injection -) 12.5 mg IVPUSH Q6H PRN PRN Reason: NAUSEA-FOR RESCUE AFTER 15 MIN Torsemide (Demadex -) 60 mg PO DAILY [facility] ASSESSMENT/PLAN: 64 yo M PMH od PVD, CAD ( s/p stenting 10/2018), CKD, HTN, DM, R foot amputation , DLD, had an angioplasty on 03/[address] Ba and admitted for an infected L foot ulcer. Pt underwent amputation of L 5th MTP 2/2 OM on 2019. Infected L foot ulcer -c/w vanc and zosyn day 3. Vanc trough 10.1 -s/p amputation w/ Dr. Ba - Wound Cx: proteus and E. Faecalis -will f/u with path results of amputation for determination for IV Abx vs PO PVD -c/w Asa, plavix, statin DM -pt diet resumed, pt Insulin 70/30 resumed at 60 mg CKD - c/w losartan and torsemide HTN: -toprol and losartan DVT ppx: heparin Visit type - Emergency Visit Emergency Visit: No - New Patient This patient is new to me today: Yes Date on this admission: 03/18/19 - Critical Care Critical Care patient: No - Discharge Referral Referred to [facility] Med P.C.: No ATTENDING PHYSICIAN STATEMENT I saw and evaluated the patient. I reviewed the resident's note and discussed the case with the resident. I agree with the resident's findings and plan as documented. SUBJECTIVE: OBJECTIVE: ASSESSMENT AND PLAN:
--- NOTE | 2019-03-18 20:01 | PN ---
Teaching Attending Note Name of Resident: Trish Lozoya ATTENDING PHYSICIAN STATEMENT I saw and evaluated the patient. I reviewed the resident's note and discussed the case with the resident. I agree with the resident's findings and plan as documented. SUBJECTIVE: declined interview and exam. ASSESSMENT AND PLAN: 64 y/o man with h/o peripheral vascular disease, CAD status post stents, CKD, hypertension, dyslipidemia, peripheral neuropathy, diabetes mellitus type 2, status post R Foot TMA in 2015, s/p angiplasty 03/[address] Ba's office, who was sent fro infected L foot ucler 1- Infected L foot ulcer with OM - cont vanco and zosyn - s/ p Amputation - wound cx with proteus and E faecalis. covered with current Abx - will follow path for amputation margins - ? bone cx sent - ID Recs. 2- PVD: cont aspirin and plavix . cont statin 3- DM - resume 70/30 i n am 4- CKD: Cr at base line. - cont losartan - cont torsemide 5- HTN: - cont toprol and losartan DVT px: heparin
[2019-03-18] MEDS: ATORVASTATIN CA 40 MG TABLET (FP) PO SCH (21:28)
[2019-03-18] MEDS: VANCOMYCIN 1 GRAM (PRE-DOCKED) 1,000 MG/250 ML BAG IVPB SCH (21:28)
[2019-03-19] MEDS ORDERED: PIPERACILLIN/TAZOBACTAM 2.25 GM VIAL IVPB ONE ×4 (00:41→19:41)
[2019-03-19] MEDS ORDERED: DEXTROSE 5%-WATER - 50 ML IVPB ONE ×4 (00:41→19:41)
[2019-03-19] MEDS: PIPERACILLIN/TAZOB 2.25 GM 2.25 GM in DEXTROSE 5%-WATER - 50 ML IVPB SCH ×4 (02:06→20:05)
[2019-03-19] MEDS ORDERED: INSULIN (NOVOLOG MIX 70/30) 100 UNITS/ML MDV SQ SCH (07:00)
[2019-03-19 07:41] LABS: HEMATOCRIT 32.7 % (35.4-49); HEMOGLOBIN 10.9 GM/dL (11.7-16.9); MCH 26.4 pg (25.7-33.7); MCHC 33.3 g/dl (32.0-35.9); MEAN CELL VOLUME 79.4 fl (80-96); MEAN PLT VOLUME 8.7 fl (7.5-11.1); PLATELET COUNT 316 K/MM3 (134-434); RBC 4.11 M/mm3 (4.00-5.60); RDW 16.6 % (11.9-15.9); WHITE BLOOD COUNT 8.3 K/mm3 (4.0-10.0)
[2019-03-19] MEDS ORDERED: INSULIN (NOVOLOG) ASPART 100 UNITS/ML 10ML VIAL ONE (07:45)
[2019-03-19 07:49] LABS: BLOOD UREA NITROGEN 40.5 mg/dL (7-18); CALCIUM 8.3 mg/dL (8.5-10.1); MAGNESIUM 2.1 mg/dL (1.8-2.4); PHOSPHOROUS 3.3 mg/dL (2.5-4.9); POTASSIUM 4.3 mmol/L (3.5-5.1)
--- NOTE | 2019-03-19 08:39 | PN ---
Progress Note (short form) - Note Progress Note: POD 1 VSS Dressing dry Will need to have VAC placed tomorrow and resume home VAC service with VNS Continue IV antibiotics 48 hrs and then switch to PO as per ID consult.
[2019-03-19] MEDS ORDERED: TORSEMIDE 20 MG TABLET (FP) PO SCH (10:00)
[2019-03-19] MEDS: LOSARTAN POTASSIUM 25 MG TABLET PO SCH (10:09)
[2019-03-19] MEDS: PANTOPRAZOLE 40 MG TABLET PO SCH (10:10)
[2019-03-19] MEDS: LIRAGLUTIDE 0.6 MG/0.1 ML PEN.INJCTR SQ SCH (10:15)
[2019-03-19] MEDS: INSULIN SLIDING SCALE (NOVOLOG) 1 VIAL SQ SCH (11:36)
[2019-03-19] MEDS: CLOPIDOGREL BISULFATE 75 MG TABLET (FP) PO SCH (11:38)
[2019-03-19] MEDS: ASPIRIN COATED 81 MG TABLET.EC PO SCH (11:38)
[2019-03-19] MEDS: HEPARIN NA (PORCINE) 5,000 UNITS/ML 1ML VIAL SQ SCH ×2 (14:29→21:20)
[2019-03-19] MEDS: INSULIN (NOVOLOG MIX 70/30) 100 UNITS/ML MDV SQ SCH (17:46)
[2019-03-19] MEDS ORDERED: PT OWN MED DRAWER 7, Y5N ONE (17:56)
--- NOTE | 2019-03-19 18:02 | OP ---
DATE OF OPERATION: 03/18/2019 SURGEON: Paulo Marte MD PROCEDURE: Open ray amputation, left 5th toe. PREOPERATIVE DIAGNOSIS: Osteomyelitis of left 5th ray. POSTOPERATIVE DIAGNOSIS: Osteomyelitis of left 5th ray. ANESTHESIA: Fractional. ANESTHESIOLOGIST: Josef Rubio MD OPERATIVE FINDINGS: An open wound on the lateral aspect of the left foot extended down to the bone of the distal metatarsal. Following ray amputation, there was no evidence of infection or nonviable tissue. OPERATIVE PROCEDURE: Following routine patient identification with side and site verification, intravenous sedation was established. The left foot was prepped with Betadine solution. Time-out was performed; 1% lidocaine was infiltrated around the base of the 5th metatarsal. Incision was then made between the 4th and 5th toes through the interspace and carried around the edges of the wound to the base of the metatarsal laterally. The subcutaneous tissues were divided with cautery. Bleeding was excellent. The bone was freed at the proximal end of the incision and transected with a bone cutter. Soft tissue attachments of the metatarsal and toe to the foot were then severed with cautery, and the specimen was removed. The cut end of the metatarsal was then debrided back with rongeur. The wound was irrigated with saline and packed open with moist saline gauze covered with combine, Kerlix, and Coban. The patient was taken to the recovery room in stable condition. PAULO MARTE M.D. [id number]
--- NOTE | 2019-03-19 18:14 | PN ---
Physical Exam: SUBJECTIVE: Patient seen and examined at bedside. pt states that his pain from his foot is improved. he denies SOB, CP. states he is compliant with BIPAP overnight OBJECTIVE: Vital Signs Period Temp Pulse Resp BP Sys/Peter Pulse Ox Last 24 Hr 97.4 F-98 F 54-67 20-20 107-124/64-78 94-98 GENERAL: The patient is awake, alert, and fully oriented, in no acute distress. ENT: moist mucous membranes. LUNGS: decreased breath sounds b/l, no wheezes, no crackles, no accessory muscle use. HEART: Regular rate and rhythm, S1, S2 without murmur, rub or gallop. ABDOMEN: Soft, nontender, nondistended, normoactive bowel sounds, no guarding, no rebound, no masses. EXTREMITIES: 2+ pulses, warm, well-perfused, no edema. NEUROLOGICAL: Cranial nerves II through XII grossly intact. PSYCH: agitated SKIN: erythema over LLE improving Laboratory Results - last 24 hr 03/19/19 03/19/19 03/19/19 05:59 06:55 06:55 WBC 8.3 RBC 4.11 Hgb 10.9 L Hct 32.7 L MCV 79.4 L MCH 26.4 MCHC 33.3 RDW 16.6 H Plt Count 316 MPV 8.7 Sodium 136 Potassium 4.3 Chloride 105 Carbon Dioxide 22 Anion Gap 9 BUN 40.5 H Creatinine 2.0 H Est GFR (CKD-EPI)AfAm 40.26 Est GFR (CKD-EPI)NonAf 34.74 POC Glucometer 210 Random Glucose 218 H Calcium 8.3 L Phosphorus 3.3 Magnesium 2.1 Current Medications Aspirin (Ecotrin -) 81 mg PO DAILY [facility] Last Admin: 03/19/19 11:38 Dose: 81 mg Atorvastatin Calcium (Lipitor -) 40 mg PO HS [facility] Last Admin: 03/18/19 21:28 Dose: 40 mg Clopidogrel Bisulfate (Plavix -) 75 mg PO DAILY [facility] Last Admin: 03/19/19 11:38 Dose: 75 mg Fentanyl (Sublimaze Injection -) 50 mcg IVPUSH [id number] PRN PRN Reason: PAIN-PACU ORDER X 4 DOSES ONLY Heparin Sodium (Porcine) (Heparin -) 5,000 unit SQ TID [facility] Last Admin: 03/19/19 14:29 Dose: 5,000 unit Piperacillin Sod/Tazobactam (Sod 2.25 gm/ Dextrose) 50 mls @ 100 mls/hr IVPB Q6H-IV [facility]; Protocol Last Admin: 03/19/19 14:23 Dose: 100 mls/hr Vancomycin HCl (Vancomycin (Pre-Docked)) 1,000 mg in 250 mls @ 166.667 mls/hr IVPB Q24H [facility]; Protocol Last Admin: 03/18/19 21:28 Dose: 166.667 mls/hr Insulin Aspart (Novolog Vial Sliding Scale -) 1 vial SQ DAILY [facility]; Protocol Last Admin: 03/19/19 11:36 Dose: 6 units Insulin Aspart (Novolog Mix 70/30 Vial) 40 units SQ BIDAC [facility] Last Admin: 03/19/19 17:46 Dose: 40 units Liraglutide (Victoza -) 1.8 mg SQ DAILY [facility] Last Admin: 03/19/19 10:15 Dose: 1.8 mg Losartan Potassium (Cozaar -) 25 mg PO DAILY [facility] Last Admin: 03/19/19 10:09 Dose: 25 mg Metoprolol Succinate (Toprol Xl -) 100 mg PO DAILY [facility] Last Admin: 03/19/19 10:09 Dose: 100 mg Ondansetron HCl (Zofran Injection) 4 mg IVPUSH Q6H PRN PRN Reason: NAUSEA AND/OR VOMITING Oxycodone HCl (Roxicodone -) 5 mg PO Q6H PRN PRN Reason: PAIN LEVEL 7 - 10 Last Admin: 03/18/19 17:42 Dose: 5 mg Pantoprazole Sodium (Protonix -) 40 mg PO DAILY [facility] Last Admin: 03/19/19 10:10 Dose: 40 mg Promethazine HCl (Phenergan Injection -) 12.5 mg IVPUSH Q6H PRN PRN Reason: NAUSEA-FOR RESCUE AFTER 15 MIN ASSESSMENT/PLAN: 64 yo M PMH od PVD, CAD ( s/p stenting 10/2018), CKD, HTN, DM, R foot amputation , DLD, had an angioplasty on 03/[address] Ba and admitted for an infected L foot ulcer. Pt underwent amputation of L 5th MTP 2/2 OM on 2019. Infected L foot ulcer -c/w vanc and zosyn day 4. Vanc trough 10.1. Will continue for 48 hours before changing to PO . Will follow up with ID ( Dr. Olivas) -s/p amputation w/ Dr. Ba - Wound Cx: proteus and E. Faecalis -will f/u with path results of amputation - VAC placement tomorrow PVD -c/w Asa, plavix, statin DM -pt diet resumed, pt on Insulin 70/30 40 mg , liraglutide, ISS - continue to monitor BGM CKD - c/w losartan and torsemide HTN: -toprol and losartan DVT ppx: heparin Visit type - Emergency Visit Emergency Visit: No - New Patient This patient is new to me today: No - Critical Care Critical Care patient: No - Discharge Referral Referred to [facility] Med P.C.: No ATTENDING PHYSICIAN STATEMENT I saw and evaluated the patient. I reviewed the resident's note and discussed the case with the resident. I agree with the resident's findings and plan as documented. SUBJECTIVE: OBJECTIVE: ASSESSMENT AND PLAN:
--- NOTE | 2019-03-19 18:28 | PN ---
Teaching Attending Note Name of Resident: Trish Lozoya ATTENDING PHYSICIAN STATEMENT I saw and evaluated the patient. I reviewed the resident's note and discussed the case with the resident. I agree with the resident's findings and plan as documented. SUBJECTIVE:seen around noon time no pain , no fever or chills . no SOB. OBJECTIVE: NAD, flat affect, not interested in conversation . minimal verbal response . CV: RRR Lungs: CTAB Ext : L foot in a dry dressing A/P 64 y/o man with h/o peripheral vascular disease, CAD status post stents, CKD, hypertension, dyslipidemia, peripheral neuropathy, diabetes mellitus type 2, status post R Foot TMA in 2016, s/p angiplasty 2/[address] Ba's office, who was sent fro infected L foot ucler 1- Infected L foot ulcer with OM - cont vanco and zosyn - s/ p Amputation yesterday - wound cx with proteus and E faecalis. covered with current Abx - will follow path for amputation margins - vanco trough tomorrow - ID input ? for Abx management 2- PVD: cont aspirin and plavix . cont statin 3- DM - cont 70/ 30 insulin 4- CKD: Cr at base line. - cont losartan - hold torsemide briefly due to elevated Cr. might be able to resume soon 5- HTN: - cont toprol and losartan DVT px: heparin
[2019-03-19] MEDS: ATORVASTATIN CA 40 MG TABLET (FP) PO SCH (21:20)
[2019-03-19] MEDS: VANCOMYCIN 1 GRAM (PRE-DOCKED) 1,000 MG/250 ML BAG IVPB SCH (21:20)
[2019-03-19] MEDS: oxyCODONE HCL 5 MG TABLET PO PRN (22:10)
[2019-03-20] MEDS ORDERED: DEXTROSE 5%-WATER - 50 ML IVPB ONE ×4 (00:39→20:26)
[2019-03-20] MEDS ORDERED: PIPERACILLIN/TAZOBACTAM 2.25 GM VIAL IVPB ONE ×4 (00:39→20:25)
[2019-03-20] MEDS: PIPERACILLIN/TAZOB 2.25 GM 2.25 GM in DEXTROSE 5%-WATER - 50 ML IVPB SCH ×4 (02:36→21:17)
[2019-03-20] MEDS: INSULIN (NOVOLOG MIX 70/30) 100 UNITS/ML MDV SQ SCH ×2 (06:10→17:07)
[2019-03-20] MEDS: HEPARIN NA (PORCINE) 5,000 UNITS/ML 1ML VIAL SQ SCH ×3 (06:10→21:18)
[2019-03-20 08:07] LABS: BLOOD UREA NITROGEN 40.4 mg/dL (7-18); CALCIUM 8.5 mg/dL (8.5-10.1); CREATININE 1.8 mg/dL (0.55-1.3); POTASSIUM 3.6 mmol/L (3.5-5.1)
--- NOTE | 2019-03-20 08:57 | PN ---
Teaching Attending Note Name of Resident: Trish Lozoya ATTENDING PHYSICIAN STATEMENT I saw and evaluated the patient. I reviewed the resident's note and discussed the case with the resident. I agree with the resident's findings and plan as documented. SUBJECTIVE: Patient is lying in bed with no acute distress. family at bedside. OBJECTIVE: Vital Signs Temperature 97.5 F L 03/20/19 06:00 Pulse Rate 62 03/20/19 06:00 Respiratory Rate 20 03/20/19 06:00 Blood Pressure 115/75 03/20/19 06:00 O2 Sat by Pulse Oximetry (%) 98 03/20/19 04:19 GENERAL: The patient is awake, alert, and fully oriented, in no acute distress. HEAD: Normal with no signs of trauma. EYES: PERRL, extraocular movements intact, sclera anicteric, conjunctiva clear. ENT: Ears normal, oropharynx clear without exudates, moist mucous membranes. NECK: Trachea midline, full range of motion, supple. LUNGS: Breath sounds equal, clear to auscultation bilaterally, no wheezes, no crackles, no accessory muscle use. HEART: Regular rate and rhythm, S1, S2 without murmur, rub or gallop. ABDOMEN: Soft, large abdomen, normoactive bowel sounds, no guarding, no rebound , no hepatosplenomegaly, no masses. EXTREMITIES: 2+ pulses, warm, well-perfused, trace edema.L 5th toe amputation NEUROLOGICAL: Cranial nerves II through XII grossly intact. Normal speech, gait not observed. PSYCH: flaT AFFECT SKIN: Warm, dry, normal turgor, no rashes or lesions noted CBCD WBC 8.3 K/mm3 (4.0-10.0) 03/19/19 06:55 RBC 4.11 M/mm3 (4.00-5.60) 03/19/19 06:55 Hgb 10.9 GM/dL (11.7-16.9) L 03/19/19 06:55 Hct 32.7 % (35.4-49) L 03/19/19 06:55 MCV 79.4 fl (80-96) L 03/19/19 06:55 MCHC 33.3 g/dl (32.0-35.9) 03/19/19 06:55 RDW 16.6 % (11.9-15.9) H 03/19/19 06:55 Plt Count 316 K/MM3 (134-434) 03/19/19 06:55 MPV 8.7 fl (7.5-11.1) 03/19/19 06:55 CMP Sodium 140 mmol/L (136-145) 03/20/19 06:45 Potassium 3.6 mmol/L (3.5-5.1) 03/20/19 06:45 Chloride 107 mmol/L (98-107) 03/20/19 06:45 Carbon Dioxide 25 mmol/L (21-32) 03/20/19 06:45 Anion Gap 8 MMOL/L (8-16) 03/20/19 06:45 BUN 40.4 mg/dL (7-18) H 03/20/19 06:45 Creatinine 1.8 mg/dL (0.55-1.3) H 03/20/19 06:45 Random Glucose 154 mg/dL (74-106) H 03/20/19 06:45 Calcium 8.5 mg/dL (8.5-10.1) 03/20/19 06:45 Total Bilirubin 0.6 mg/dL (0.2-1) 03/15/19 05:50 AST 24 U/L (15-37) 03/15/19 05:50 ALT 28 U/L (13-61) 03/15/19 05:50 Alkaline Phosphatase 66 U/L (45-117) 03/15/19 05:50 Total Protein 6.4 g/dl (6.4-8.2) 03/15/19 05:50 Albumin 2.5 g/dl (3.4-5.0) L 03/15/19 05:50 Current Medications Generic Name Dose Route Start Last Admin Trade Name Freq PRN Reason Stop Dose Admin Aspirin 81 mg 03/19/19 10:00 03/19/19 11:38 Ecotrin - PO 81 mg DAILY [facility] Administration Atorvastatin Calcium 40 mg 03/18/19 22:00 03/19/19 21:20 Lipitor - PO 40 mg HS [facility] Administration Clopidogrel Bisulfate 75 mg 03/19/19 10:00 03/19/19 11:38 Plavix - PO 75 mg DAILY [facility] Administration Fentanyl 50 mcg 03/18/19 16:09 Sublimaze Injection - IVPUSH [id number] PRN PAIN-PACU ORDER X 4 DOSES ONLY Heparin Sodium (Porcine) 5,000 unit 03/18/19 22:00 03/20/19 06:10 Heparin - SQ 5,000 unit TID [facility] Administration Piperacillin Sod/Tazobactam 50 mls @ 100 mls/hr 03/18/19 21:00 03/20/19 02:36 Sod 2.25 gm/ Dextrose IVPB 100 mls/hr Q6H-IV [facility] Administration Protocol Vancomycin HCl 1,000 mg in 250 mls @ 166.667 mls/hr 03/18/19 22:00 03/19/19 21:20 Vancomycin (Pre-Docked) IVPB 166.667 mls/hr Q24H [facility] Administration Protocol Insulin Aspart 1 vial 03/19/19 10:00 03/19/19 11:36 Novolog Vial Sliding Scale - SQ 6 units DAILY [facility] Administration Protocol Insulin Aspart 40 units 03/19/19 16:30 03/20/19 06:10 Novolog Mix 70/30 Vial SQ 40 units BIDAC [facility] Administration Liraglutide 1.8 mg 03/19/19 10:00 03/19/19 10:15 Victoza - SQ 1.8 mg DAILY [facility] Administration Losartan Potassium 25 mg 03/19/19 10:00 03/19/19 10:09 Cozaar - PO 25 mg DAILY [facility] Administration Metoprolol Succinate 100 mg 03/19/19 10:00 03/19/19 10:09 Toprol Xl - PO 100 mg DAILY [facility] Administration Ondansetron HCl 4 mg 03/18/19 16:09 Zofran Injection IVPUSH Q6H PRN NAUSEA AND/OR VOMITING Oxycodone HCl 5 mg 03/18/19 16:09 03/19/19 22:10 Roxicodone - PO 5 mg Q6H PRN Administration PAIN LEVEL 7 - 10 Pantoprazole Sodium 40 mg 03/19/19 10:00 03/19/19 10:10 Protonix - PO 40 mg DAILY [facility] Administration Promethazine HCl 12.5 mg 03/18/19 16:09 Phenergan Injection - IVPUSH Q6H PRN NAUSEA-FOR RESCUE AFTER 15 MIN Home Medications Medication Instructions Recorded Insulin (Novolog 70/30) [Novolog 60 units SQ BID 06/28/16 Mix 70/30 Flexpen -] Liraglutide [Victoza -] 1.8 mg SQ DAILY 06/07/17 Clopidogrel Bisulfate [Plavix] 75 mg PO DAILY 04/23/18 Empagliflozin [Jardiance] 10 mg PO DAILY 07/03/18 Icosapent Ethyl [Vascepa] 2 gm PO BID 07/03/18 Potassium Chloride 20 meq PO DAILY 07/03/18 Metoprolol Succinate [Toprol Xl] 100 mg PO DAILY 07/23/18 Aspirin Coated [Ecotrin -] 81 mg PO DAILY tablet.ec 02/20/19 Atorvastatin Ca [Lipitor] 40 mg PO HS tablet 02/20/19 Losartan Potassium [Cozaar -] 25 mg PO DAILY tablet 02/20/19 Pantoprazole Sodium [Protonix -] 40 mg PO DAILY tablet.ec 02/20/19 Torsemide [Demadex -] 60 mg PO DAILY tablet 02/20/19 Sodium Bicarbonate - 650 mg PO DAILY 03/15/19 Microbiology 03/14/19 22:00 Blood - Peripheral Venous Blood Culture - Final NO GROWTH AFTER 5 DAYS INCUBATION 03/14/19 22:00 Blood - Peripheral Venous Blood Culture - Final NO GROWTH AFTER 5 DAYS INCUBATION 03/14/19 22:40 Foot - Left Lateral Gram Stain - Final 03/14/19 22:40 Foot - Left Lateral Wound Culture - Final Proteus Vulgaris Enterococcus Faecalis ASSESSMENT AND PLAN: 64 y/o man with h/o peripheral vascular disease, CAD status post stents, CKD, hypertension, dyslipidemia, peripheral neuropathy, diabetes mellitus type 2, status post R Foot TMA in 2015, s/p angiplasty 2/ at Dr. Ba's office, who was sent fro infected L foot ucler # pod #2 S/P amputation OF left 5th toe DUE TO OM, continue vanco and zosyn - left wound cx positive for proteus and E faecalis, continue IV Antiobiotics , ID on the case . # PVD: on aspirin and plavix , statin continue # DM cont 70/ 30 insulin # hx of CKD: continue home meds # HTN: cont toprol and losartan DVT px: heparin
[2019-03-20] MEDS ORDERED: PT OWN MED DRAWER 7, Y5N ONE (09:10)
[2019-03-20] MEDS: LOSARTAN POTASSIUM 25 MG TABLET PO SCH (09:18)
[2019-03-20] MEDS: ASPIRIN COATED 81 MG TABLET.EC PO SCH (09:18)
[2019-03-20] MEDS: CLOPIDOGREL BISULFATE 75 MG TABLET (FP) PO SCH (09:18)
[2019-03-20] MEDS: PANTOPRAZOLE 40 MG TABLET PO SCH (09:18)
[2019-03-20] MEDS: LIRAGLUTIDE 0.6 MG/0.1 ML PEN.INJCTR SQ SCH (09:18)
[2019-03-20] MEDS: INSULIN SLIDING SCALE (NOVOLOG) 1 VIAL SQ SCH (12:29)
--- NOTE | 2019-03-20 17:54 | PATH ---
Surgical Pathology Report Patient Name: RONN NARANJO Med. Rec. #: [id number] /Age/Gender: 1955 (Age: 64) / M Account: [id number] Location: [facility] MED/SURG Taken: 03/18/2019 Received: 03/19/2019 Reported: 03/20/2019 Physicians: Paulo Ba M.D. Specimen(s) Received LEFT FOOT FIFTH TOE AND RAY Clinical History Left foot cellulitis Final Diagnosis LEFT FOOT FIFTH TOE AND RAY, AMPUTATION: PORTION OF AMPUTATED TOE SHOWING ULCERATION WITH MARKED ACUTE AND CHRONIC INFLAMMATION AND GRANULATION TISSUE FORMATION; THE INFLAMMATION EXTENDS TO THE SKIN AND SUBCUTANEOUS SOFT TISSUE MARGIN. BONE WITH ACUTE AND CHRONIC OSTEOMYELITIS. BONE MARGIN IS INVOLVED WITH CHRONIC OSTEOMYELITIS. Electronically Signed Mayra Sarah M.D. Gross Description Received in formalin labeled "left foot fifth toe and ray," is an 8.8 x 2.3 x 2.3 cm toe amputation. The epidermal surface displays a 4.3 x 2.9 cm ulcerated lesion on the lateral aspect of the specimen. The lesion focally appears to involve the skin and soft tissue margin as well the underlying bone. Scientologist sections are submitted in 3 cassettes as follows: 1-skin and soft tissue margin; 2-bone margin, following decalcification; 3-lesion with underlying bone, following decalcification. /03/19/2019 saudi03/19/2019
--- NOTE | 2019-03-20 19:02 | PN ---
Physical Exam: SUBJECTIVE: Patient seen and examined at bedside. pt is easily irritable. pt denies any acute complaints OBJECTIVE: Vital Signs Period Temp Pulse Resp BP Sys/Peter Pulse Ox Last 24 Hr 97.5 F-97.9 F 62-69 18-20 111-120/59-75 96-98 GENERAL: The patient is awake, alert, and fully oriented, in no acute distress. HEAD: Normal with no signs of trauma. LUNGS: Breath sounds decreased at bases, no wheezes, no crackles, no accessory muscle use. HEART: Regular rate and rhythm, S1, S2 without murmur, rub or gallop. ABDOMEN: Soft, nontender, nondistended, normoactive bowel sounds, no guarding EXTREMITIES: 2+ pulses, warm, well-perfused, no edema. NEUROLOGICAL: Cranial nerves II through XII grossly intact. Normal speech SKIN: Warm, dry, normal turgor, no rashes or lesions noted Laboratory Results - last 24 hr 03/20/19 03/20/19 03/20/19 06:08 06:45 12:18 Sodium 140 Potassium 3.6 Chloride 107 Carbon Dioxide 25 Anion Gap 8 BUN 40.4 H Creatinine 1.8 H Est GFR (CKD-EPI)AfAm 45.73 Est GFR (CKD-EPI)NonAf 39.46 POC Glucometer 155 374 Random Glucose 154 H Calcium 8.5 03/20/19 16:36 Sodium Potassium Chloride Carbon Dioxide Anion Gap BUN Creatinine Est GFR (CKD-EPI)AfAm Est GFR (CKD-EPI)NonAf POC Glucometer 149 Random Glucose Calcium Current Medications Aspirin (Ecotrin -) 81 mg PO DAILY [facility] Last Admin: 03/20/19 09:18 Dose: 81 mg Atorvastatin Calcium (Lipitor -) 40 mg PO HS [facility] Last Admin: 03/19/19 21:20 Dose: 40 mg Clopidogrel Bisulfate (Plavix -) 75 mg PO DAILY [facility] Last Admin: 03/20/19 09:18 Dose: 75 mg Fentanyl (Sublimaze Injection -) 50 mcg IVPUSH [id number] PRN PRN Reason: PAIN-PACU ORDER X 4 DOSES ONLY Heparin Sodium (Porcine) (Heparin -) 5,000 unit SQ TID [facility] Last Admin: 03/20/19 14:33 Dose: Not Given Piperacillin Sod/Tazobactam (Sod 2.25 gm/ Dextrose) 50 mls @ 100 mls/hr IVPB Q6H-IV [facility]; Protocol Last Admin: 03/20/19 16:30 Dose: 100 mls/hr Insulin Aspart (Novolog Vial Sliding Scale -) 1 vial SQ DAILY [facility]; Protocol Last Admin: 03/20/19 12:29 Dose: 10 units Insulin Aspart (Novolog Mix 70/30 Vial) 40 units SQ BIDAC [facility] Last Admin: 03/20/19 17:07 Dose: Not Given Liraglutide (Victoza -) 1.8 mg SQ DAILY [facility] Last Admin: 03/20/19 09:18 Dose: 1.8 mg Losartan Potassium (Cozaar -) 25 mg PO DAILY [facility] Last Admin: 03/20/19 09:18 Dose: 25 mg Metoprolol Succinate (Toprol Xl -) 100 mg PO DAILY [facility] Last Admin: 03/20/19 09:18 Dose: 100 mg Ondansetron HCl (Zofran Injection) 4 mg IVPUSH Q6H PRN PRN Reason: NAUSEA AND/OR VOMITING Oxycodone HCl (Roxicodone -) 5 mg PO Q6H PRN PRN Reason: PAIN LEVEL 7 - 10 Last Admin: 03/19/19 22:10 Dose: 5 mg Pantoprazole Sodium (Protonix -) 40 mg PO DAILY [facility] Last Admin: 03/20/19 09:18 Dose: 40 mg Promethazine HCl (Phenergan Injection -) 12.5 mg IVPUSH Q6H PRN PRN Reason: NAUSEA-FOR RESCUE AFTER 15 MIN Vancomycin HCl (Vancomycin (Pre-Docked)) 1,000 mg IVPB ONCE ONE; Protocol Stop: 03/20/19 21:01 ASSESSMENT/PLAN: 64 yo M PMH od PVD, CAD ( s/p stenting 10/2018), CKD, HTN, DM, R foot amputation , DLD, had an angioplasty on 03/[address] Ba and admitted for an infected L foot ulcer. Pt underwent amputation of L 5th MTP 2/2 OM on 2019. Infected L foot ulcer -c/w vanc and zosyn day 6. Vanc trough 10.1. Will continue . Will follow up with ID ( Dr. Olivas) -s/p amputation w/ Dr. Ba - Wound Cx from 03/14 : proteus and E. Faecalis , sensitivities reviewed. - VAC placement today - path report shows that margins involved osteomyelitis PVD -c/w Asa, plavix, statin DM -pt diet resumed, pt on Insulin 70/30 40 mg , liraglutide, ISS - continue to monitor BGM CKD - c/w losartan and torsemide HTN: -toprol and losartan DVT ppx: heparin Visit type - Emergency Visit Emergency Visit: No - New Patient This patient is new to me today: No - Critical Care Critical Care patient: No - Discharge Referral Referred to [facility] Med P.C.: No ATTENDING PHYSICIAN STATEMENT I saw and evaluated the patient. I reviewed the resident's note and discussed the case with the resident. I agree with the resident's findings and plan as documented. SUBJECTIVE: OBJECTIVE: ASSESSMENT AND PLAN:
[2019-03-20] MEDS ORDERED: VANCOMYCIN 1 GM in D5W (PRE-DOCKED) 1,000 MG/250 ML IVPB ONE (21:00)
[2019-03-20] MEDS ORDERED: VANCOMYCIN 1 GRAM (PRE-DOCKED) 1,000 MG/250 ML BAG IVPB SCH ×2 (21:00→22:00)
[2019-03-20] MEDS: ATORVASTATIN CA 40 MG TABLET (FP) PO SCH (21:18)
[2019-03-21] MEDS ORDERED: PIPERACILLIN/TAZOBACTAM 2.25 GM VIAL IVPB ONE ×2 (02:04→09:01)
[2019-03-21] MEDS ORDERED: DEXTROSE 5%-WATER - 50 ML IVPB ONE ×2 (02:04→09:01)
[2019-03-21] MEDS: PIPERACILLIN/TAZOB 2.25 GM 2.25 GM in DEXTROSE 5%-WATER - 50 ML IVPB SCH ×3 (02:15→09:51)
--- NOTE | 2019-03-21 06:19 | PN ---
Physical Exam: SUBJECTIVE: Patient seen and examined OBJECTIVE: Vital Signs Period Temp Pulse Resp BP Sys/Peter Pulse Ox Last 24 Hr 97.5 F-98.2 F 66-69 18-20 112-144/58-78 69 GENERAL: The patient is awake, alert, and fully oriented, in no acute distress. HEAD: Normal with no signs of trauma. EYES: PERRL, extraocular movements intact, sclera anicteric, conjunctiva clear. No ptosis. ENT: Ears normal, nares patent, oropharynx clear without exudates, moist mucous membranes. NECK: Trachea midline, full range of motion, supple. LUNGS: Breath sounds equal, clear to auscultation bilaterally, no wheezes, no crackles, no accessory muscle use. HEART: Regular rate and rhythm, S1, S2 without murmur, rub or gallop. ABDOMEN: Soft, nontender, nondistended, normoactive bowel sounds, no guarding, no rebound, no hepatosplenomegaly, no masses. EXTREMITIES: 2+ pulses, warm, well-perfused, no edema. NEUROLOGICAL: Cranial nerves II through XII grossly intact. Normal speech, gait not observed. PSYCH: Normal mood, normal affect. SKIN: Warm, dry, normal turgor, no rashes or lesions noted Laboratory Results - last 24 hr 03/20/19 03/20/19 03/20/19 06:45 12:18 16:36 Sodium 140 Potassium 3.6 Chloride 107 Carbon Dioxide 25 Anion Gap 8 BUN 40.4 H Creatinine 1.8 H Est GFR (CKD-EPI)AfAm 45.73 Est GFR (CKD-EPI)NonAf 39.46 POC Glucometer 374 149 Random Glucose 154 H Calcium 8.5 Vancomycin Pre-Dose 03/20/19 03/20/19 03/21/19 20:45 21:28 05:58 Sodium Potassium Chloride Carbon Dioxide Anion Gap BUN Creatinine Est GFR (CKD-EPI)AfAm Est GFR (CKD-EPI)NonAf POC Glucometer 195 186 Random Glucose Calcium Vancomycin Pre-Dose 11.4 L Active Medications Generic Name Dose Route Start Last Admin Trade Name Freq PRN Reason Stop Dose Admin Aspirin 81 mg 03/19/19 10:00 03/20/19 09:18 Ecotrin - PO 81 mg DAILY IGGY Administration Atorvastatin Calcium 40 mg 03/18/19 22:00 03/20/19 21:18 Lipitor - PO 40 mg HS IGGY Administration Clopidogrel Bisulfate 75 mg 03/19/19 10:00 03/20/19 09:18 Plavix - PO 75 mg DAILY IGGY Administration Fentanyl 50 mcg 03/18/19 16:09 Sublimaze Injection - IVPUSH [id number] PRN PAIN-PACU ORDER X 4 DOSES ONLY Heparin Sodium (Porcine) 5,000 unit 03/18/19 22:00 03/20/19 21:18 Heparin - SQ 5,000 unit TID IGGY Administration Piperacillin Sod/Tazobactam 50 mls @ 100 mls/hr 03/18/19 21:00 03/21/19 02:15 Sod 2.25 gm/ Dextrose IVPB 100 mls/hr Q6H-IV IGGY Administration Protocol Vancomycin HCl 1,000 mg in 250 mls @ 166.667 mls/hr 03/20/19 22:00 03/20/19 22:08 Vancomycin (Pre-Docked) IVPB 166.667 mls/hr Q24H IGGY Administration Insulin Aspart 1 vial 03/19/19 10:00 03/20/19 12:29 Novolog Vial Sliding Scale - SQ 10 units DAILY IGGY Administration Protocol Insulin Aspart 40 units 03/19/19 16:30 03/20/19 17:07 Novolog Mix 70/30 Vial SQ Not Given BIDAC IGGY Liraglutide 1.8 mg 03/19/19 10:00 03/20/19 09:18 Victoza - SQ 1.8 mg DAILY IGGY Administration Losartan Potassium 25 mg 03/19/19 10:00 03/20/19 09:18 Cozaar - PO 25 mg DAILY IGGY Administration Metoprolol Succinate 100 mg 03/19/19 10:00 03/20/19 09:18 Toprol Xl - PO 100 mg DAILY IGGY Administration Ondansetron HCl 4 mg 03/18/19 16:09 Zofran Injection IVPUSH Q6H PRN NAUSEA AND/OR VOMITING Oxycodone HCl 5 mg 03/18/19 16:09 03/19/19 22:10 Roxicodone - PO 5 mg Q6H PRN Administration PAIN LEVEL 7 - 10 Pantoprazole Sodium 40 mg 03/19/19 10:00 03/20/19 09:18 Protonix - PO 40 mg DAILY IGGY Administration Promethazine HCl 12.5 mg 03/18/19 16:09 Phenergan Injection - IVPUSH Q6H PRN NAUSEA-FOR RESCUE AFTER 15 MIN ASSESSMENT/PLAN: 64 yo M PMH od PVD, CAD ( s/p stenting 10/2018), CKD, HTN, DM, R foot amputation , DLD, had an angioplasty on 03/[address] Ba and admitted for an infected L foot ulcer. Pt underwent amputation of L 5th MTP 2/2 OM on 2019. Infected L foot ulcer -c/w vanc and zosyn day 6. Vanc trough 10.1. Will continue . Will follow up with ID ( Dr. Olivas) -s/p amputation w/ Dr. Ba - Wound Cx from 03/14 : proteus and E. Faecalis , sensitivities reviewed. - VAC placement today - path report shows that margins involved osteomyelitis PVD -c/w Asa, plavix, statin DM -pt diet resumed, pt on Insulin 70/30 40 mg , liraglutide, ISS - continue to monitor BGM CKD - c/w losartan and torsemide HTN: -toprol and losartan DVT ppx: heparin ATTENDING PHYSICIAN STATEMENT I saw and evaluated the patient. I reviewed the resident's note and discussed the case with the resident. I agree with the resident's findings and plan as documented. SUBJECTIVE: OBJECTIVE: ASSESSMENT AND PLAN:
[2019-03-21] MEDS: HEPARIN NA (PORCINE) 5,000 UNITS/ML 1ML VIAL SQ SCH ×3 (06:42→21:48)
[2019-03-21] MEDS: INSULIN (NOVOLOG MIX 70/30) 100 UNITS/ML MDV SQ SCH ×2 (06:42→17:34)
[2019-03-21 08:20] LABS: BASO % 0.5 % (0-2.0); EOS % 5.3 % (0-4.5); HEMATOCRIT 32.2 % (35.4-49); HEMOGLOBIN 10.8 GM/dL (11.7-16.9); LYMPH % 16.7 % (8-40); MCH 26.5 pg (25.7-33.7); MCHC 33.4 g/dl (32.0-35.9); MEAN CELL VOLUME 79.4 fl (80-96); MEAN PLT VOLUME 8.9 fl (7.5-11.1); NEUT % 71.5 % (42.8-82.8); PLATELET COUNT 298 K/MM3 (134-434); RBC 4.06 M/mm3 (4.00-5.60); RDW 16.6 % (11.9-15.9); WHITE BLOOD COUNT 6.3 K/mm3 (4.0-10.0)
[2019-03-21 09:07] LABS: ALBUMIN 2.6 g/dl (3.4-5.0); BILIRUBIN,TOTAL 0.3 mg/dL (0.2-1); BLOOD UREA NITROGEN 35.2 mg/dL (7-18); CALCIUM 8.5 mg/dL (8.5-10.1); CREATININE 1.6 mg/dL (0.55-1.3); MAGNESIUM 2.3 mg/dL (1.8-2.4); PHOSPHOROUS 2.5 mg/dL (2.5-4.9); TOT PROT 6.2 g/dl (6.4-8.2)
[2019-03-21] MEDS: LOSARTAN POTASSIUM 25 MG TABLET PO SCH (09:37)
[2019-03-21] MEDS: PANTOPRAZOLE 40 MG TABLET PO SCH (09:37)
[2019-03-21] MEDS: ASPIRIN COATED 81 MG TABLET.EC PO SCH (09:38)
[2019-03-21] MEDS: CLOPIDOGREL BISULFATE 75 MG TABLET (FP) PO SCH (09:38)
[2019-03-21] MEDS: LIRAGLUTIDE 0.6 MG/0.1 ML PEN.INJCTR SQ SCH (09:39)
[2019-03-21] MEDS: INSULIN SLIDING SCALE (NOVOLOG) 1 VIAL SQ SCH (10:11)
--- NOTE | 2019-03-21 14:25 | PN ---
Progress Note (short form) - Note Progress Note: asked to f/u he is s/p ray amputation biopsy with positive margin for chronic osteomyelitis he has a vac on his foot he is willing to have iv antibiotics if he can come daily to the hospital for infusion will plan 6 weeks of ertapenem d/w dr christie d/w resident he can come to the office in [address] ramon for f/u repeat esr/crp in am Problem List - Problems (1) Cellulitis Code(s): L03.90 - CELLULITIS, UNSPECIFIED (2) Diabetic foot ulcer Code(s): E11.621 - TYPE 2 DIABETES MELLITUS WITH FOOT ULCER; L97.509 - NON- PRESSURE CHRONIC ULCER OTH PRT UNSP FOOT W UNSP SEVERITY Qualifiers: Diabetic foot ulcer location: unspecified part of foot Diabetes mellitus type: other specified (including DESTINY) Laterality: unspecified laterality Non-pressure ulcer stage: unspecified non-pressure ulcer stage Qualified Code( s): E13.621 - Other specified diabetes mellitus with foot ulcer; L97.509 - Non- pressure chronic ulcer of other part of unspecified foot with unspecified severity (3) Osteomyelitis Code(s): M86.9 - OSTEOMYELITIS, UNSPECIFIED (4) PVD (peripheral vascular disease) Code(s): I73.9 - PERIPHERAL VASCULAR DISEASE, UNSPECIFIED
[2019-03-21] MEDS: ERTAPENEM SODIUM 1 GM in SODIUM CHLORIDE 50 ML IVPB SCH (17:34)
--- NOTE | 2019-03-21 17:49 | PN ---
Physical Exam: SUBJECTIVE: Patient seen and examined at bedside. pt states pain is controlled and that while in the hospital he likes to use NC O2 because hes uncomfortable OBJECTIVE: Vital Signs Period Temp Pulse Resp BP Sys/Peter Pulse Ox Last 24 Hr 97.3 F-98.2 F 66-73 18-20 113-144/55-83 69-98 GENERAL: The patient is awake, alert, and fully oriented, in no acute distress. HEAD: Normal with no signs of trauma LUNGS: Breath sounds equal and decreased, no accessory muscle use. HEART: Regular rate and rhythm, S1, S2 without murmur, rub or gallop. ABDOMEN: Soft, nontender, nondistended, normoactive bowel sounds, no guarding, no rebound, no hepatosplenomegaly, no masses. EXTREMITIES: LLE wound vac in place. LLE erythema present on woods. LUE lesion CBC, BMP 03/21/19 06:50 03/21/19 06:50 Current Medications Aspirin (Ecotrin -) 81 mg PO DAILY [facility] Last Admin: 03/21/19 09:38 Dose: 81 mg Atorvastatin Calcium (Lipitor -) 40 mg PO HS [facility] Last Admin: 03/20/19 21:18 Dose: 40 mg Clopidogrel Bisulfate (Plavix -) 75 mg PO DAILY [facility] Last Admin: 03/21/19 09:38 Dose: 75 mg Fentanyl (Sublimaze Injection -) 50 mcg IVPUSH [id number] PRN PRN Reason: PAIN-PACU ORDER X 4 DOSES ONLY Heparin Sodium (Porcine) (Heparin -) 5,000 unit SQ TID [facility] Last Admin: 03/21/19 15:21 Dose: Not Given Ertapenem 1 gm/ Sodium (Chloride) 50 mls @ 100 mls/hr IVPB DAILY [facility] Last Admin: 03/21/19 17:34 Dose: 100 mls/hr Insulin Aspart (Novolog Vial Sliding Scale -) 1 vial SQ DAILY [facility]; Protocol Last Admin: 03/21/19 10:11 Dose: Not Given Insulin Aspart (Novolog Mix 70/30 Vial) 40 units SQ BIDAC [facility] Last Admin: 03/21/19 17:34 Dose: 40 units Liraglutide (Victoza -) 1.8 mg SQ DAILY [facility] Last Admin: 03/21/19 09:39 Dose: 1.8 mg Losartan Potassium (Cozaar -) 25 mg PO DAILY [facility] Last Admin: 03/21/19 09:37 Dose: 25 mg Metoprolol Succinate (Toprol Xl -) 100 mg PO DAILY [facility] Last Admin: 03/21/19 09:37 Dose: 100 mg Ondansetron HCl (Zofran Injection) 4 mg IVPUSH Q6H PRN PRN Reason: NAUSEA AND/OR VOMITING Oxycodone HCl (Roxicodone -) 5 mg PO Q6H PRN PRN Reason: PAIN LEVEL 7 - 10 Last Admin: 03/19/19 22:10 Dose: 5 mg Pantoprazole Sodium (Protonix -) 40 mg PO DAILY [facility] Last Admin: 03/21/19 09:37 Dose: 40 mg Promethazine HCl (Phenergan Injection -) 12.5 mg IVPUSH Q6H PRN PRN Reason: NAUSEA-FOR RESCUE AFTER 15 MIN ASSESSMENT/PLAN: 64 yo M PMH od PVD, CAD ( s/p stenting 10/2018), CKD, HTN, DM, R foot amputation , DLD, had an angioplasty on 03/[address] Ba and admitted for an infected L foot ulcer. Pt underwent amputation of L 5th MTP 2/2 OM on 2019. Infected L foot ulcer -c/w vanc and zosyn day 7. Vanc trough 11.4. Will continue . Will follow up with ID ( Dr. Olivas) -s/p amputation w/ Dr. Ba. wound vac wasnt working properly, Surgery recs appreciated. - Wound Cx from 03/14 : proteus and E. Faecalis , sensitivities reviewed. - path report shows that margins involved osteomyelitis - pt will get tunnel cath for ertapenem use as per sensitivities and discussions with ID PVD -c/w Asa, plavix, statin DM -pt diet resumed, pt on Insulin 70/30 40 mg , liraglutide, ISS - continue to monitor BGM CKD - c/w losartan and torsemide HTN: -toprol and losartan DVT ppx: heparin Visit type - Emergency Visit Emergency Visit: No - New Patient This patient is new to me today: No - Critical Care Critical Care patient: No - Discharge Referral Referred to [facility] Med [facility] No ATTENDING PHYSICIAN STATEMENT I saw and evaluated the patient. I reviewed the resident's note and discussed the case with the resident. I agree with the resident's findings and plan as documented. SUBJECTIVE: OBJECTIVE: ASSESSMENT AND PLAN:
--- NOTE | 2019-03-21 20:52 | PN ---
Teaching Attending Note Name of Resident: Trish Lozyoa ATTENDING PHYSICIAN STATEMENT I saw and evaluated the patient. I reviewed the resident's note and discussed the case with the resident. I agree with the resident's findings and plan as documented. SUBJECTIVE: Patient is comfortable with no acute distress. Vital Signs Temperature 98.0 F 03/21/19 19:00 Pulse Rate 80 03/21/19 19:00 Respiratory Rate 20 03/21/19 19:00 Blood Pressure 123/68 03/21/19 19:00 O2 Sat by Pulse Oximetry (%) 96 03/21/19 09:00 GENERAL: The patient is awake, alert, and fully oriented, in no acute distress. HEAD: Normal with no signs of trauma. EYES: PERRL, extraocular movements intact, sclera anicteric, conjunctiva clear. ENT: Ears normal, oropharynx clear without exudates, moist mucous membranes. NECK: Trachea midline, full range of motion, supple. LUNGS: Breath sounds equal, clear to auscultation bilaterally, no wheezes, no crackles, no accessory muscle use. HEART: Regular rate and rhythm, S1, S2 without murmur, rub or gallop. ABDOMEN: Soft, large abdomen, normoactive bowel sounds, no guarding, no rebound , no masses appreciated. EXTREMITIES: 2+ pulses, warm, well-perfused, trace edema. L 5th toe amputation with a wound vac. NEUROLOGICAL: Cranial nerves II through XII grossly intact. Normal speech, gait not observed. PSYCH: flaT AFFECT SKIN: Warm, dry, normal turgor, no rashes or lesions noted CBCD WBC 8.3 K/mm3 (4.0-10.0) 03/19/19 06:55 RBC 4.11 M/mm3 (4.00-5.60) 03/19/19 06:55 Hgb 10.9 GM/dL (11.7-16.9) L 03/19/19 06:55 Hct 32.7 % (35.4-49) L 03/19/19 06:55 MCV 79.4 fl (80-96) L 03/19/19 06:55 MCHC 33.3 g/dl (32.0-35.9) 03/19/19 06:55 RDW 16.6 % (11.9-15.9) H 03/19/19 06:55 Plt Count 316 K/MM3 (134-434) 03/19/19 06:55 MPV 8.7 fl (7.5-11.1) 03/19/19 06:55 CMP Sodium 140 mmol/L (136-145) 03/20/19 06:45 Potassium 3.6 mmol/L (3.5-5.1) 03/20/19 06:45 Chloride 107 mmol/L (98-107) 03/20/19 06:45 Carbon Dioxide 25 mmol/L (21-32) 03/20/19 06:45 Anion Gap 8 MMOL/L (8-16) 03/20/19 06:45 BUN 40.4 mg/dL (7-18) H 03/20/19 06:45 Creatinine 1.8 mg/dL (0.55-1.3) H 03/20/19 06:45 Random Glucose 154 mg/dL (74-106) H 03/20/19 06:45 Calcium 8.5 mg/dL (8.5-10.1) 03/20/19 06:45 Total Bilirubin 0.6 mg/dL (0.2-1) 03/15/19 05:50 AST 24 U/L (15-37) 03/15/19 05:50 ALT 28 U/L (13-61) 03/15/19 05:50 Alkaline Phosphatase 66 U/L (45-117) 03/15/19 05:50 Total Protein 6.4 g/dl (6.4-8.2) 03/15/19 05:50 Albumin 2.5 g/dl (3.4-5.0) L 03/15/19 05:50 Current Medications Generic Name Dose Route Start Last Admin Trade Name Freq PRN Reason Stop Dose Admin Aspirin 81 mg 03/19/19 10:00 03/19/19 11:38 Ecotrin - PO 81 mg DAILY IGGY Administration Atorvastatin Calcium 40 mg 03/18/19 22:00 03/19/19 21:20 Lipitor - PO 40 mg HS IGGY Administration Clopidogrel Bisulfate 75 mg 03/19/19 10:00 03/19/19 11:38 Plavix - PO 75 mg DAILY IGGY Administration Fentanyl 50 mcg 03/18/19 16:09 Sublimaze Injection - IVPUSH [id number] PRN PAIN-PACU ORDER X 4 DOSES ONLY Heparin Sodium (Porcine) 5,000 unit 03/18/19 22:00 03/20/19 06:10 Heparin - SQ 5,000 unit TID IGGY Administration Piperacillin Sod/Tazobactam 50 mls @ 100 mls/hr 03/18/19 21:00 03/20/19 02:36 Sod 2.25 gm/ Dextrose IVPB 100 mls/hr Q6H-IV IGGY Administration Protocol Vancomycin HCl 1,000 mg in 250 mls @ 166.667 mls/hr 03/18/19 22:00 03/19/19 21:20 Vancomycin (Pre-Docked) IVPB 166.667 mls/hr Q24H IGGY Administration Protocol Insulin Aspart 1 vial 03/19/19 10:00 03/19/19 11:36 Novolog Vial Sliding Scale - SQ 6 units DAILY IGGY Administration Protocol Insulin Aspart 40 units 03/19/19 16:30 03/20/19 06:10 Novolog Mix 70/30 Vial SQ 40 units BIDAC IGGY Administration Liraglutide 1.8 mg 03/19/19 10:00 03/19/19 10:15 Victoza - SQ 1.8 mg DAILY IGGY Administration Losartan Potassium 25 mg 03/19/19 10:00 03/19/19 10:09 Cozaar - PO 25 mg DAILY IGGY Administration Metoprolol Succinate 100 mg 03/19/19 10:00 03/19/19 10:09 Toprol Xl - PO 100 mg DAILY IGGY Administration Ondansetron HCl 4 mg 03/18/19 16:09 Zofran Injection IVPUSH Q6H PRN NAUSEA AND/OR VOMITING Oxycodone HCl 5 mg 03/18/19 16:09 03/19/19 22:10 Roxicodone - PO 5 mg Q6H PRN Administration PAIN LEVEL 7 - 10 Pantoprazole Sodium 40 mg 03/19/19 10:00 03/19/19 10:10 Protonix - PO 40 mg DAILY IGGY Administration Promethazine HCl 12.5 mg 03/18/19 16:09 Phenergan Injection - IVPUSH Q6H PRN NAUSEA-FOR RESCUE AFTER 15 MIN Home Medications Medication Instructions Recorded Insulin (Novolog 70/30) [Novolog 60 units SQ BID 06/28/16 Mix 70/30 Flexpen -] Liraglutide [Victoza -] 1.8 mg SQ DAILY 06/07/17 Clopidogrel Bisulfate [Plavix] 75 mg PO DAILY 04/23/18 Empagliflozin [Jardiance] 10 mg PO DAILY 07/03/18 Icosapent Ethyl [Vascepa] 2 gm PO BID 07/03/18 Potassium Chloride 20 meq PO DAILY 07/03/18 Metoprolol Succinate [Toprol Xl] 100 mg PO DAILY 07/23/18 Aspirin Coated [Ecotrin -] 81 mg PO DAILY tablet.ec 02/20/19 Atorvastatin Ca [Lipitor] 40 mg PO HS tablet 02/20/19 Losartan Potassium [Cozaar -] 25 mg PO DAILY tablet 02/20/19 Pantoprazole Sodium [Protonix -] 40 mg PO DAILY tablet.ec 02/20/19 Torsemide [Demadex -] 60 mg PO DAILY tablet 02/20/19 Sodium Bicarbonate - 650 mg PO DAILY 03/15/19 Microbiology 03/14/19 22:00 Blood - Peripheral Venous Blood Culture - Final NO GROWTH AFTER 5 DAYS INCUBATION 03/14/19 22:00 Blood - Peripheral Venous Blood Culture - Final NO GROWTH AFTER 5 DAYS INCUBATION 03/14/19 22:40 Foot - Left Lateral Gram Stain - Final 03/14/19 22:40 Foot - Left Lateral Wound Culture - Final Proteus Vulgaris Enterococcus Faecalis ASSESSMENT AND PLAN: 64 y/o man with h/o peripheral vascular disease, CAD status post stents, CKD, hypertension, dyslipidemia, peripheral neuropathy, diabetes mellitus type 2, status post R Foot TMA in 2015, s/p angioplasty 2/ at Dr. Ba's office, who was sent for infected L foot ucler # pod #3 s/p amputation OF left 5th toe DUE TO OM, continue vanco and zosyn - left wound cx positive for proteus and E faecalis, continue IV Antiobiotics , ID on the case . Pathology report of left 5th toe and ray amputation: inflammation and granulation tissue formation; the inflammation extends to the skin and subq.soft tissue margin. Bone is with acute and chronic amputation. # PVD: on aspirin and plavix ,statin continue # DM cont 70/30 insulin # hx of CKD: continue home meds # HTN: cont home meds. DVT px: heparin
[2019-03-21] MEDS: ATORVASTATIN CA 40 MG TABLET (FP) PO SCH (21:48)
[2019-03-22] MEDS: INSULIN (NOVOLOG MIX 70/30) 100 UNITS/ML MDV SQ SCH (06:49)
[2019-03-22] MEDS: HEPARIN NA (PORCINE) 5,000 UNITS/ML 1ML VIAL SQ SCH ×2 (06:49→15:12)
--- NOTE | 2019-03-22 08:28 | PN ---
Progress Note (short form) - Note Progress Note: No complaints VSS, Afebrile VAC dressing in place, minimal drainage Foot warm Stable course, concern for residual osteomyelitis in metatarsal. Medline placed for daily IV abx Continue VAC I will see in 2 weeks in office.
[2019-03-22] MEDS: LOSARTAN POTASSIUM 25 MG TABLET PO SCH (09:27)
[2019-03-22] MEDS: PANTOPRAZOLE 40 MG TABLET PO SCH (09:27)
[2019-03-22] MEDS: ASPIRIN COATED 81 MG TABLET.EC PO SCH (09:27)
[2019-03-22] MEDS: CLOPIDOGREL BISULFATE 75 MG TABLET (FP) PO SCH (09:27)
[2019-03-22] MEDS: ERTAPENEM SODIUM 1 GM in SODIUM CHLORIDE 50 ML IVPB SCH (09:28)
[2019-03-22] MEDS: LIRAGLUTIDE 0.6 MG/0.1 ML PEN.INJCTR SQ SCH (09:30)
[2019-03-22] MEDS ORDERED: TORSEMIDE 20 MG TABLET (FP) PO SCH (11:00)
[2019-03-22] MEDS: INSULIN SLIDING SCALE (NOVOLOG) 1 VIAL SQ SCH (12:50)
--- NOTE | 2019-03-22 13:32 | PN ---
Progress Note (short form) - Note Progress Note: Vascular Surgery: Changed the vac dressing today. The wound is clean. It measures [id number]. Black foam reapplied to the wound bed and the Vac secured. The patient is being discharge and has follow with wound care/vac dressing.
--- NOTE | 2019-03-22 14:34 | PN ---
Teaching Attending Note Name of Resident: Trish Lozoya ATTENDING PHYSICIAN STATEMENT I saw and evaluated the patient. I reviewed the resident's note and discussed the case with the resident. I agree with the resident's findings and plan as documented. SUBJECTIVE: Patient is comfortable , going home today. Vital Signs Temperature 98 F 03/22/19 09:33 Pulse Rate 69 03/22/19 09:33 Respiratory Rate 20 03/22/19 09:33 Blood Pressure 143/63 03/22/19 09:33 O2 Sat by Pulse Oximetry (%) 94 L 03/22/19 04:30 GENERAL: The patient is awake, alert, and fully oriented, in no acute distress. HEAD: Normal with no signs of trauma. EYES: PERRL, extraocular movements intact, sclera anicteric, conjunctiva clear. ENT: Ears normal, oropharynx clear without exudates, moist mucous membranes. NECK: Trachea midline, full range of motion, supple. LUNGS: Breath sounds equal, clear to auscultation bilaterally, no wheezes, no crackles, no accessory muscle use. HEART: Regular rate and rhythm, S1, S2 without murmur, rub or gallop. ABDOMEN: Soft, nontender, nondistended, normoactive bowel sounds, no guarding, no rebound, no hepatosplenomegaly, no masses. EXTREMITIES: 2+ pulses, warm, well-perfused, no edema. NEUROLOGICAL: Cranial nerves II through XII grossly intact. Normal speech, gait not observed. PSYCH: Normal mood, normal affect. SKIN: Warm, dry, normal turgor, no rashes or lesions noted CBCD WBC 6.3 K/mm3 (4.0-10.0) 03/21/19 06:50 RBC 4.06 M/mm3 (4.00-5.60) 03/21/19 06:50 Hgb 10.8 GM/dL (11.7-16.9) L 03/21/19 06:50 Hct 32.2 % (35.4-49) L 03/21/19 06:50 MCV 79.4 fl (80-96) L 03/21/19 06:50 MCHC 33.4 g/dl (32.0-35.9) 03/21/19 06:50 RDW 16.6 % (11.9-15.9) H 03/21/19 06:50 Plt Count 298 K/MM3 (134-434) 03/21/19 06:50 MPV 8.9 fl (7.5-11.1) 03/21/19 06:50 CMP Sodium 140 mmol/L (136-145) 03/21/19 06:50 Potassium 4.0 mmol/L (3.5-5.1) 03/21/19 06:50 Chloride 108 mmol/L (98-107) H 03/21/19 06:50 Carbon Dioxide 24 mmol/L (21-32) 03/21/19 06:50 Anion Gap 7 MMOL/L (8-16) L 03/21/19 06:50 BUN 35.2 mg/dL (7-18) H 03/21/19 06:50 Creatinine 1.6 mg/dL (0.55-1.3) H 03/21/19 06:50 Random Glucose 187 mg/dL (74-106) H 03/21/19 06:50 Calcium 8.5 mg/dL (8.5-10.1) 03/21/19 06:50 Total Bilirubin 0.3 mg/dL (0.2-1) 03/21/19 06:50 AST 12 U/L (15-37) L 03/21/19 06:50 ALT 22 U/L (13-61) 03/21/19 06:50 Alkaline Phosphatase 53 U/L (45-117) 03/21/19 06:50 Total Protein 6.2 g/dl (6.4-8.2) L 03/21/19 06:50 Albumin 2.6 g/dl (3.4-5.0) L 03/21/19 06:50 Current Medications Generic Name Dose Route Start Last Admin Trade Name Freq PRN Reason Stop Dose Admin Aspirin 81 mg 03/19/19 10:00 03/21/19 09:38 Ecotrin - PO 81 mg DAILY IGGY Administration Atorvastatin Calcium 40 mg 03/18/19 22:00 03/20/19 21:18 Lipitor - PO 40 mg HS IGGY Administration Clopidogrel Bisulfate 75 mg 03/19/19 10:00 03/21/19 09:38 Plavix - PO 75 mg DAILY IGGY Administration Fentanyl 50 mcg 03/18/19 16:09 Sublimaze Injection - IVPUSH [id number] PRN PAIN-PACU ORDER X 4 DOSES ONLY Heparin Sodium (Porcine) 5,000 unit 03/18/19 22:00 03/21/19 15:21 Heparin - SQ Not Given TID [facility] Ertapenem 1 gm/ Sodium 50 mls @ 100 mls/hr 03/21/19 14:30 03/21/19 17:34 Chloride IVPB 100 mls/hr DAILY IGGY Administration Insulin Aspart 1 vial 03/19/19 10:00 03/21/19 10:11 Novolog Vial Sliding Scale - SQ Not Given DAILY [facility] Protocol Insulin Aspart 40 units 03/19/19 16:30 03/21/19 17:34 Novolog Mix 70/30 Vial SQ 40 units BIDAC [facility] Administration Liraglutide 1.8 mg 03/19/19 10:00 03/21/19 09:39 Victoza - SQ 1.8 mg DAILY [facility] Administration Losartan Potassium 25 mg 03/19/19 10:00 03/21/19 09:37 Cozaar - PO 25 mg DAILY IGGY Administration Metoprolol Succinate 100 mg 03/19/19 10:00 03/21/19 09:37 Toprol Xl - PO 100 mg DAILY [facility] Administration Ondansetron HCl 4 mg 03/18/19 16:09 Zofran Injection IVPUSH Q6H PRN NAUSEA AND/OR VOMITING Oxycodone HCl 5 mg 03/18/19 16:09 03/19/19 22:10 Roxicodone - PO 5 mg Q6H PRN Administration PAIN LEVEL 7 - 10 Pantoprazole Sodium 40 mg 03/19/19 10:00 03/21/19 09:37 Protonix - PO 40 mg DAILY IGGY Administration Promethazine HCl 12.5 mg 03/18/19 16:09 Phenergan Injection - IVPUSH Q6H PRN NAUSEA-FOR RESCUE AFTER 15 MIN Home Medications Medication Instructions Recorded RX: Insulin (Novolog 70/30) 60 units SQ BID 06/28/16 [Novolog Mix 70/30 Flexpen -] RX: Liraglutide [Victoza -] 1.8 mg SQ DAILY 06/07/17 RX: Clopidogrel Bisulfate [Plavix] 75 mg PO DAILY 04/23/18 RX: Icosapent Ethyl [Vascepa] 2 gm PO BID 07/03/18 RX: Metoprolol Succinate [Toprol 100 mg PO DAILY 07/23/18 Xl] RX: Aspirin Coated [Ecotrin -] 81 mg PO DAILY tablet.ec 02/20/19 RX: Atorvastatin Ca [Lipitor] 40 mg PO HS tablet 02/20/19 RX: Losartan Potassium [Cozaar -] 25 mg PO DAILY tablet 02/20/19 RX: Pantoprazole Sodium [Protonix 40 mg PO DAILY tablet.ec 02/20/19 -] RX: Torsemide [Demadex -] 60 mg PO DAILY tablet 02/20/19 RX: Sodium Bicarbonate - 650 mg PO DAILY 03/15/19 RX: Ertapenem Sodium [Invanz -] 1 gm IVPB DAILY vial 03/22/19 03/14/19 22:00 Blood - Peripheral Venous Blood Culture - Final NO GROWTH AFTER 5 DAYS INCUBATION 03/14/19 22:00 Blood - Peripheral Venous Blood Culture - Final NO GROWTH AFTER 5 DAYS INCUBATION 03/14/19 22:40 Foot - Left Lateral Gram Stain - Final 03/14/19 22:40 Foot - Left Lateral Wound Culture - Final Proteus Vulgaris Enterococcus Faecalis ASSESSMENT AND PLAN: 64 y/o man with h/o peripheral vascular disease, CAD status post stents, CKD, hypertension, dyslipidemia, peripheral neuropathy, diabetes mellitus type 2, status post R Foot TMA in 2016, s/p angioplasty 2/ at Dr. Ba's office, who was sent for infected L foot ucler # pod #4 s/p amputation OF left 5th toe DUE TO acute and chronic amputation. continue vanco as an outpatient. patient has a tunneled catheter , placed upon dc. left wound cx positive for proteus and E faecalis, continue IV Antiobiotic , ID on the case . Pathology report of left 5th toe and ray amputation: inflammation and granulation tissue formation; the inflammation extends to the skin and subq.soft tissue margin. Bone is with acute and chronic amputation. continue IV antibiotic vanco as per ID and YUNIEL Ba visit. # PVD: on aspirin and plavix ,statin continue # DM cont 70/30 insulin # Hx of CKD: continue home meds # HTN: cont home meds. DVT px: heparin
--- NOTE | 2019-03-22 14:45 | DS ---
Physical Exam: SUBJECTIVE: Patient seen and examined at bedside. Pt is agitated that the wound vac wasnt working. Pt has no acute complaints and is not feeling pain/ OBJECTIVE: Vital Signs Period Temp Pulse Resp BP Sys/Peter Pulse Ox Last 24 Hr 97.3 F-98.0 F 62-80 20-20 119-143/63-83 94-96 PHYSICAL EXAM GENERAL: The patient is awake, alert, and fully oriented, in no acute distress. LUNGS: Breath sounds decreased, no wheezes, no crackles, no accessory muscle use. HEART: Regular rate and rhythm, S1, S2 ABDOMEN: Soft, nontender, nondistended, normoactive bowel sounds, no guarding EXTREMITIES: 2+ pulses, warm, well-perfused, no edema. PSYCH: Normal mood, normal affect. SKIN: Warm, dry, normal turgor, no rashes or lesions noted. LABS Laboratory Results - last 24 hr 03/21/19 03/21/19 03/22/19 17:36 21:46 06:28 ESR POC Glucometer 152 136 116 C-Reactive Protein 03/22/19 03/22/19 03/22/19 06:45 06:45 12:49 ESR 39 H POC Glucometer 113 C-Reactive Protein 0.7 H HOSPITAL COURSE: Date of Admission:03/15/19 64 yo M PMH od PVD, CAD ( s/p stenting 10/2018), CKD, HTN, DM, R foot amputation , DLD, had an angioplasty on 03/[address] Ba and admitted for an infected L foot ulcer. Pt underwent amputation of L 5th MTP 2/2 OM on 2019. pathology margins from amputation involved osteomyelitis. Wound cultures from 03/14 grow Proteus and E faecalis, sensitivities were reviewed. Pt was on vanc and zosyn for 7 days while in hospital. ID recs are appreciated. pt is will be coming to [facility] for daily ertapenem infusions. pt had vac dressing replaced by surgery and pt has a wound vac at home. While in the hospital, pt got asa, plavix and statin for PVD, on Insulin , liraglutide and BGM monitoring for DM, losartan and torsemide for HTN and CKD. Date of Discharge: 03/22/19 Minutes to complete discharge: 36 Discharge Summary Problems reviewed: Yes Reason For Visit: CELLULITIS AND ABSCESS OF FOOT, DIABETIC FOOT Current Active Problems Cellulitis (Acute) Osteomyelitis (Acute) Condition: Stable - Instructions Diet, Activity, Other Instructions: YOUR VISIT. You came to the hospital because you were having pain and an infection in your foot. You were admitted to the hospital for an infection in your bone called osteomyelitis. You had an amputation of your toe and you are on IV antibiotics. While here you were seen by the medicine physicians, infectious disease doctors , and surgeons You are now stable and may return home. MEDICATIONS. Please continue your home medications as prescribed. You will need to come to our infusion center at [facility] daily for your antibiotic infusion of a medicine called Ertapenem for 6 weeks for the infection of your foot. ADDITIONAL CARE. Please make an appointment to see your primary care provider, Dr. Alexander, isabell from today. Please have a CBC and a CMP drawn at that time. You will need weekly CBC, CMP while on this medication. Please make an appointment with your vascular surgeon, Dr. Ba, regarding your improvement and to assess your wound. Please make an appointment with the infectious disease doctor, Dr. Gaspar, in 2 weeks to assess your improvement with antibiotic. ADDITIONAL INFORMATION. Please call 911 or come directly to the emergency department if you experience unusual headache, vision change, shortness of breath, chest pain, numbness, tingling, loss of alertness/awareness, loss of function, unusual bleeding or any alarming symptoms. Referrals: Jorge Gaspar MD [Staff Physician] - 1 Week Veda Alexander MD [Primary Care Provider] - 1 Week Paulo Ba MD [Staff Physician] - 2 Weeks Disposition: HOME - Home Medications Comprehensive Discharge Medication List: Ambulatory Orders Insulin (Novolog 70/30) [Novolog Mix 70/30 Flexpen -] 60 units SQ BID 06/28/16 Liraglutide [Victoza -] 1.8 mg SQ DAILY 06/07/17 Clopidogrel Bisulfate [Plavix] 75 mg PO DAILY 04/23/18 Icosapent Ethyl [Vascepa] 2 gm PO BID 07/03/18 Metoprolol Succinate [Toprol Xl] 100 mg PO DAILY 07/23/18 Aspirin Coated [Ecotrin -] 81 mg PO DAILY tablet.ec 02/20/19 Atorvastatin Ca [Lipitor] 40 mg PO HS tablet 02/20/19 Losartan Potassium [Cozaar -] 25 mg PO DAILY tablet 02/20/19 Pantoprazole Sodium [Protonix -] 40 mg PO DAILY tablet.ec 02/20/19 Torsemide [Demadex -] 60 mg PO DAILY tablet 02/20/19 Sodium Bicarbonate - 650 mg PO DAILY 03/15/19 Ertapenem Sodium [Invanz -] 1 gm IVPB DAILY vial 03/22/19 This patient is new to me today: No Emergency Visit: No Critical Care patient: No - Discharge Referral Referred to [facility] Med P.C.: No ATTENDING PHYSICIAN STATEMENT I saw and evaluated the patient. I reviewed the resident's note and discussed the case with the resident. I agree with the resident's findings and plan as documented. SUBJECTIVE: OBJECTIVE: ASSESSMENT AND PLAN:
[2019-03-22 14:58] VITALS: BP 155/90; PULSE 75; TEMP 97.7
[2019-03-25 11:25] LABS: HEMATOCRIT 38.6 % (35.4-49); HEMOGLOBIN 12.6 GM/dL (11.7-16.9); MCH 26.2 pg (25.7-33.7); MCHC 32.7 g/dl (32.0-35.9); MEAN CELL VOLUME 80.3 fl (80-96); MEAN PLT VOLUME 8.5 fl (7.5-11.1); PLATELET COUNT 346 K/MM3 (134-434); RBC 4.81 M/mm3 (4.00-5.60); RDW 17.4 % (11.9-15.9); WHITE BLOOD COUNT 9.9 K/mm3 (4.0-10.0)
[2019-03-25 11:59] LABS: ALBUMIN 3.3 g/dl (3.4-5.0); BILIRUBIN,TOTAL 0.4 mg/dL (0.2-1); CALCIUM 8.8 mg/dL (8.5-10.1); CREATININE 1.9 mg/dL (0.55-1.3); POTASSIUM 3.8 mmol/L (3.5-5.1); TOT PROT 7.2 g/dl (6.4-8.2)
[2019-03-25 12:54] LABS: ERYTHROCYTE SEDIMENTATION RATE 43 mm/hr (0-20)
== END 2019-03-22 15:40 | disposition home health service (06) | DRG 240 ==
LOC: JER 20:14 → JERBED 03-15 00:21 → J7W 03-15 12:12
PROVIDERS: ADMIT Internal Medicine; ATTEND Internal Medicine
PROC: 0Y6N0Z8 Detachment at Left Foot, Complete 5th Ray, Open Approach (ICD-10-PCS; principal; 2019-03-18 13:30)
PROC: 02HV33Z Insertion of Infusion Device into Superior Vena Cava, Percutaneous Approach (ICD-10-PCS; 2019-03-21)
DX: E11.51 Type 2 diabetes mellitus with diabetic peripheral angiopathy without gangrene (principal); M86.172 Other acute osteomyelitis, left ankle and foot; L97.425 Non-pressure chronic ulcer of left heel and midfoot with muscle involvement without evidence of necrosis; L03.116 Cellulitis of left lower limb; M86.672 Other chronic osteomyelitis, left ankle and foot; E11.621 Type 2 diabetes mellitus with foot ulcer; E11.69 Type 2 diabetes mellitus with other specified complication; I13.10 Hypertensive heart and chronic kidney disease without heart failure, with stage 1 through stage 4 chronic kidney disease, or unspecified chronic kidney disease; I25.10 Atherosclerotic heart disease of native coronary artery without angina pectoris; I73.9 Peripheral vascular disease, unspecified; Z95.5 Presence of coronary angioplasty implant and graft; E11.42 Type 2 diabetes mellitus with diabetic polyneuropathy; N18.9 Chronic kidney disease, unspecified; E78.5 Hyperlipidemia, unspecified; G47.33 Obstructive sleep apnea (adult) (pediatric); E11.65 Type 2 diabetes mellitus with hyperglycemia
CPT/HCPCS: 11042; 29581-LT; 36415; 36558; 71046-TC-FY; 73610-TC-LT-FY; 73630-TC-LT; 77001-TC-FY; 80048; 80053; 81003; 82962; 83036; 83735; 84100; 85025; 85027; 85610; 85651; 85730; 86140; 86850; 86900; 86901; 87040; 87070; 87186; 87205; 88305-TC; 88311-TC; 93005; 93010; 94660; 94760; 97116-GP; 97161-GP; 99284-25; A6196; C1751; G0480; J1644; J7030

== ENCOUNTER 2019-03-23 10:24 | Day surgery (SDC) | payer OTHER, BC ==
[2019-03-23 11:00] VITALS: TEMP 97.8
[2019-03-23] MEDS ORDERED: ERTAPENEM SODIUM 1 GM in SODIUM CHLORIDE 50 ML IVPB ONE (11:00)
[2019-03-23 11:45] VITALS: BP 134/57; PULSE 70
== END 2019-03-23 11:53 | disposition home or self-care (01) ==
LOC: JINFUSION 10:24 → J7W 10:30 → JINFUSION 11:53
PROVIDERS: ATTEND Internal Medicine
DX: M86.9 Osteomyelitis, unspecified (principal)
CPT/HCPCS: 96365

== ENCOUNTER 2019-03-24 10:00 | Day surgery (SDC) | payer OTHER, BC ==
[2019-03-24 10:37] VITALS: TEMP 98.1
[2019-03-24] MEDS ORDERED: ERTAPENEM SODIUM 1 GM in SODIUM CHLORIDE 50 ML IVPB ONE (11:00)
[2019-03-24 11:32] VITALS: BP 121/70; PULSE 69
== END 2019-03-24 11:33 | disposition home or self-care (01) ==
LOC: JINFUSION 10:00 → J7W 10:00 → JINFUSION 11:33
PROVIDERS: ATTEND Internal Medicine
DX: M86.9 Osteomyelitis, unspecified (principal)
CPT/HCPCS: 96365

== ENCOUNTER 2019-03-25 10:46 | Day surgery (SDC) | payer OTHER, BC ==
[2019-03-25] MEDS ORDERED: ERTAPENEM SODIUM 1 GM in SODIUM CHLORIDE 50 ML IVPB ONE (12:00)
[2019-03-25 14:07] VITALS: BP 122/66; PULSE 73; TEMP 98.7
== END 2019-03-25 14:11 | disposition home or self-care (01) ==
LOC: JINFUSION 10:46 → J7W 10:55 → JINFUSION 14:11
PROVIDERS: ATTEND Internal Medicine
DX: M86.9 Osteomyelitis, unspecified (principal)
CPT/HCPCS: 96365

== ENCOUNTER 2019-03-26 10:19 | Day surgery (SDC) | payer OTHER, BC ==
[2019-03-26] MEDS ORDERED: ERTAPENEM SODIUM 1 GM in SODIUM CHLORIDE 50 ML IVPB ONE (11:15)
[2019-03-26 11:38] VITALS: BP 123/75; PULSE 71; TEMP 98.1
== END 2019-03-26 12:10 | disposition home or self-care (01) ==
LOC: JINFUSION 10:19 → J7W 10:20 → JINFUSION 12:10
PROVIDERS: ATTEND Internal Medicine
DX: M86.9 Osteomyelitis, unspecified (principal)
CPT/HCPCS: 96365

== ENCOUNTER 2019-03-27 10:07 | Day surgery (SDC) | payer OTHER, BC ==
[2019-03-27] MEDS ORDERED: ERTAPENEM SODIUM 1 GM in SODIUM CHLORIDE 100 ML IVPB ONE (10:30)
[2019-03-27] MEDS ORDERED: SODIUM CHLORIDE 100 ML IVPB ONE (10:58)
[2019-03-27] MEDS ORDERED: ERTAPENEM SODIUM 1 GM VIAL ONE (10:58)
[2019-03-27 12:00] VITALS: BP 131/76; PULSE 69; TEMP 98.4
== END 2019-03-27 15:13 | disposition home or self-care (01) ==
LOC: J7W 10:07 → JINFUSION 10:07
PROVIDERS: ATTEND Internal Medicine
DX: M86.9 Osteomyelitis, unspecified (principal)
CPT/HCPCS: 96365

== ENCOUNTER 2019-03-28 10:38 | Day surgery (SDC) | payer OTHER, BC ==
[2019-03-28] MEDS ORDERED: ERTAPENEM SODIUM 1 GM in SODIUM CHLORIDE 50 ML IVPB ONE (11:15)
[2019-03-28] MEDS ORDERED: SODIUM CHLORIDE 50 ML IVPB ONE (11:25)
[2019-03-28] MEDS ORDERED: ERTAPENEM SODIUM 1 GM VIAL ONE (11:25)
[2019-03-28 11:39] VITALS: BP 130/67; PULSE 65; TEMP 98.7
== END 2019-03-28 13:14 | disposition home or self-care (01) ==
LOC: JINFUSION 10:38 → J7W 10:41 → JINFUSION 13:14
PROVIDERS: ATTEND Internal Medicine
DX: M86.9 Osteomyelitis, unspecified (principal)
CPT/HCPCS: 96365

== ENCOUNTER 2019-03-29 05:23 | Day surgery (SDC) | payer OTHER, BC ==
[2019-03-29] MEDS ORDERED: ERTAPENEM SODIUM 1 GM in SODIUM CHLORIDE 50 ML IVPB ONE (11:00)
[2019-03-29 11:43] LABS: BASO % 0.8 % (0-2.0); HEMATOCRIT 36.1 % (35.4-49); LYMPH % 12.1 % (8-40); MCH 26.6 pg (25.7-33.7); MCHC 33.2 g/dl (32.0-35.9); MEAN CELL VOLUME 80.3 fl (80-96); MEAN PLT VOLUME 8.2 fl (7.5-11.1); NEUT % 76.1 % (42.8-82.8); PLATELET COUNT 306 K/MM3 (134-434); RBC 4.49 M/mm3 (4.00-5.60); RDW 17.2 % (11.9-15.9); WHITE BLOOD COUNT 7.4 K/mm3 (4.0-10.0)
[2019-03-29] MEDS ORDERED: ERTAPENEM SODIUM 1 GM VIAL ONE (11:55)
[2019-03-29] MEDS ORDERED: SODIUM CHLORIDE 50 ML IVPB ONE (11:56)
[2019-03-29 12:18] VITALS: TEMP 97.5
[2019-03-29 12:20] LABS: ALBUMIN 3.2 g/dl (3.4-5.0); BILIRUBIN,TOTAL 0.3 mg/dL (0.2-1); BLOOD UREA NITROGEN 34.1 mg/dL (7-18); CALCIUM 8.9 mg/dL (8.5-10.1); CREATININE 1.8 mg/dL (0.55-1.3); POTASSIUM 3.8 mmol/L (3.5-5.1); TOT PROT 7.2 g/dl (6.4-8.2)
[2019-03-29 12:52] VITALS: BP 137/73; PULSE 73
== END 2019-03-29 13:09 | disposition home or self-care (01) ==
LOC: JINFUSION 05:23 → J7W 05:24 → JINFUSION 13:09
PROVIDERS: ATTEND Internal Medicine
DX: M86.9 Osteomyelitis, unspecified (principal)
CPT/HCPCS: 36415; 80053; 85025; 85651; 86140; 96365

== ENCOUNTER 2019-03-30 10:33 | Day surgery (SDC) | payer OTHER, BC ==
[2019-03-30] MEDS ORDERED: ERTAPENEM SODIUM 1 GM VIAL ONE (10:56)
[2019-03-30] MEDS ORDERED: SODIUM CHLORIDE 50 ML IVPB ONE (10:56)
[2019-03-30] MEDS ORDERED: ERTAPENEM SODIUM 1 GM in SODIUM CHLORIDE 50 ML IVPB ONE (11:00)
[2019-03-30 11:49] VITALS: BP 142/72; PULSE 76; TEMP 97.9
== END 2019-03-30 11:50 | disposition home or self-care (01) ==
LOC: JINFUSION 10:33 → J7W 10:33 → JINFUSION 11:50
PROVIDERS: ATTEND Internal Medicine
DX: M86.9 Osteomyelitis, unspecified (principal)
CPT/HCPCS: 96365

== ENCOUNTER 2019-03-31 10:24 | Day surgery (SDC) | payer OTHER, BC ==
[2019-03-31] MEDS ORDERED: ERTAPENEM SODIUM 1 GM VIAL ONE (11:13)
[2019-03-31] MEDS ORDERED: SODIUM CHLORIDE 50 ML IVPB ONE (11:14)
[2019-03-31] MEDS ORDERED: ERTAPENEM SODIUM 1 GM in SODIUM CHLORIDE 50 ML IVPB ONE (11:15)
[2019-03-31 14:43] VITALS: BP 129/78; PULSE 72; TEMP 97.4
== END 2019-03-31 12:00 | disposition home or self-care (01) ==
LOC: JINFUSION 10:24 → J7W 10:24 → JINFUSION 12:00
PROVIDERS: ATTEND Internal Medicine
DX: M86.9 Osteomyelitis, unspecified (principal)
CPT/HCPCS: 96365

== ENCOUNTER 2019-04-01 05:24 | Day surgery (SDC) | payer OTHER, BC ==
[2019-04-01] MEDS ORDERED: ERTAPENEM SODIUM 1 GM VIAL ONE (11:28)
[2019-04-01] MEDS ORDERED: SODIUM CHLORIDE 50 ML IVPB ONE (11:28)
[2019-04-01] MEDS ORDERED: ERTAPENEM SODIUM 1 GM in SODIUM CHLORIDE 50 ML IVPB ONE (11:30)
[2019-04-01 12:30] VITALS: BP 112/71; PULSE 68; TEMP 98
== END 2019-04-01 12:20 | disposition home or self-care (01) ==
LOC: JINFUSION 05:24 → J7W 05:25 → JINFUSION 12:20
PROVIDERS: ATTEND Internal Medicine
DX: M86.9 Osteomyelitis, unspecified (principal)
CPT/HCPCS: 96365

== ENCOUNTER 2019-04-02 05:20 | Day surgery (SDC) | payer OTHER, BC ==
[2019-04-02] MEDS ORDERED: ERTAPENEM SODIUM 1 GM in DEXTROSE 5%-WATER - 50 ML IVPB ONE (11:00)
[2019-04-02] MEDS ORDERED: ERTAPENEM SODIUM 1 GM VIAL ONE (11:18)
[2019-04-02] MEDS ORDERED: DEXTROSE 5%-WATER - 50 ML IVPB ONE (11:18)
[2019-04-02 11:29] VITALS: TEMP 97.4
[2019-04-02 11:56] VITALS: BP 121/70; PULSE 66
== END 2019-04-02 14:17 | disposition home or self-care (01) ==
LOC: JINFUSION 05:20 → J7W 05:22 → JINFUSION 14:17
PROVIDERS: ATTEND Internal Medicine
DX: M86.9 Osteomyelitis, unspecified (principal)
CPT/HCPCS: 96365

== ENCOUNTER 2019-04-03 05:15 | Day surgery (SDC) | payer OTHER, BC ==
[2019-04-03] MEDS ORDERED: ERTAPENEM SODIUM 1 GM in SODIUM CHLORIDE 50 ML IVPB ONE (11:00)
[2019-04-03] MEDS ORDERED: ERTAPENEM SODIUM 1 GM VIAL ONE (11:01)
[2019-04-03] MEDS ORDERED: SODIUM CHLORIDE 50 ML IVPB ONE (11:01)
[2019-04-03 11:59] VITALS: BP 121/66; PULSE 65; TEMP 98.1
== END 2019-04-03 11:45 | disposition home or self-care (01) ==
LOC: JINFUSION 05:15 → J7W 05:16 → JINFUSION 11:45
PROVIDERS: ATTEND Internal Medicine
DX: M86.9 Osteomyelitis, unspecified (principal)
CPT/HCPCS: 96365

== ENCOUNTER 2019-04-04 05:26 | Day surgery (SDC) | payer OTHER, BC ==
[2019-04-04] MEDS ORDERED: ERTAPENEM SODIUM 1 GM in SODIUM CHLORIDE 50 ML IVPB ONE (12:00)
[2019-04-04] MEDS ORDERED: SODIUM CHLORIDE 50 ML IVPB ONE (12:02)
[2019-04-04] MEDS ORDERED: ERTAPENEM SODIUM 1 GM VIAL ONE (12:02)
[2019-04-04 13:52] VITALS: BP 138/70; PULSE 67; TEMP 98.3
== END 2019-04-04 14:09 | disposition home or self-care (01) ==
LOC: JINFUSION 05:26 → J7W 05:27 → JINFUSION 14:09
PROVIDERS: ATTEND Internal Medicine
DX: M86.9 Osteomyelitis, unspecified (principal)
CPT/HCPCS: 96365

== ENCOUNTER 2019-04-05 05:09 | Day surgery (SDC) | payer OTHER, BC ==
[2019-04-05] MEDS ORDERED: ERTAPENEM SODIUM 1 GM in SODIUM CHLORIDE 50 ML IVPB ONE (11:00)
[2019-04-05] MEDS ORDERED: ERTAPENEM SODIUM 1 GM VIAL ONE (11:24)
[2019-04-05] MEDS ORDERED: SODIUM CHLORIDE 50 ML IVPB ONE (11:24)
[2019-04-05 11:34] LABS: HEMATOCRIT 38.6 % (35.4-49); HEMOGLOBIN 12.8 GM/dL (11.7-16.9); MCH 26.3 pg (25.7-33.7); MCHC 33.1 g/dl (32.0-35.9); MEAN CELL VOLUME 79.3 fl (80-96); MEAN PLT VOLUME 8.4 fl (7.5-11.1); PLATELET COUNT 295 K/MM3 (134-434); RBC 4.87 M/mm3 (4.00-5.60); WHITE BLOOD COUNT 6.7 K/mm3 (4.0-10.0)
[2019-04-05 12:09] LABS: ALBUMIN 3.3 g/dl (3.4-5.0); BILIRUBIN,TOTAL 0.8 mg/dL (0.2-1); BLOOD UREA NITROGEN 38.8 mg/dL (7-18); CALCIUM 9.2 mg/dL (8.5-10.1); CREATININE 1.7 mg/dL (0.55-1.3); POTASSIUM 3.7 mmol/L (3.5-5.1); TOT PROT 7.4 g/dl (6.4-8.2)
[2019-04-05 12:33] LABS: ERYTHROCYTE SEDIMENTATION RATE 44 mm/hr (0-20)
[2019-04-05 13:32] VITALS: BP 125/86; PULSE 65; TEMP 98.3
== END 2019-04-05 14:24 | disposition home or self-care (01) ==
LOC: J7W 05:09 → JINFUSION 05:09
PROVIDERS: ATTEND Internal Medicine
DX: M86.9 Osteomyelitis, unspecified (principal)
CPT/HCPCS: 36415; 80053; 85027; 85651; 86140; 96365

== ENCOUNTER 2019-04-06 06:41 | Day surgery (SDC) | payer OTHER, BC ==
[2019-04-06 10:57] VITALS: TEMP 98.2
[2019-04-06] MEDS ORDERED: ERTAPENEM SODIUM 1 GM in SODIUM CHLORIDE 50 ML IVPB ONE (11:00)
[2019-04-06] MEDS ORDERED: SODIUM CHLORIDE 50 ML IVPB ONE (11:12)
[2019-04-06] MEDS ORDERED: ERTAPENEM SODIUM 1 GM VIAL ONE (11:12)
[2019-04-06 11:54] VITALS: BP 108/69; PULSE 68
== END 2019-04-06 12:01 | disposition home or self-care (01) ==
LOC: JINFUSION 06:41 → J7W 06:41 → JINFUSION 12:01
PROVIDERS: ATTEND Internal Medicine
DX: M86.9 Osteomyelitis, unspecified (principal)
CPT/HCPCS: 96365

== ENCOUNTER 2019-04-07 10:46 | Day surgery (SDC) | payer OTHER, BC ==
[2019-04-07] MEDS ORDERED: ERTAPENEM SODIUM 1 GM in SODIUM CHLORIDE 50 ML IVPB ONE (11:15)
[2019-04-07] MEDS ORDERED: ERTAPENEM SODIUM 1 GM VIAL ONE (11:41)
[2019-04-07] MEDS ORDERED: SODIUM CHLORIDE 50 ML IVPB ONE (11:42)
[2019-04-07 13:31] VITALS: BP 135/70; PULSE 63; TEMP 97.3
== END 2019-04-07 12:30 | disposition home or self-care (01) ==
LOC: J7W 10:46 → JINFUSION 10:46
PROVIDERS: ATTEND Internal Medicine
DX: M86.9 Osteomyelitis, unspecified (principal)
CPT/HCPCS: 96365

== ENCOUNTER 2019-04-08 05:15 | Day surgery (SDC) | payer OTHER, BC ==
[2019-04-08] MEDS ORDERED: SODIUM CHLORIDE 50 ML IVPB ONE (10:34)
[2019-04-08] MEDS ORDERED: ERTAPENEM SODIUM 1 GM VIAL ONE (10:34)
[2019-04-08] MEDS ORDERED: ERTAPENEM SODIUM 1 GM in SODIUM CHLORIDE 50 ML IVPB ONE (11:00)
[2019-04-08 14:53] VITALS: BP 117/57; PULSE 70; TEMP 98.1
== END 2019-04-08 15:30 | disposition home or self-care (01) ==
LOC: JINFUSION 05:15 → J7W 05:16 → JINFUSION 15:30
PROVIDERS: ATTEND Internal Medicine
DX: M86.9 Osteomyelitis, unspecified (principal)
CPT/HCPCS: 96365

== ENCOUNTER 2019-04-09 05:27 | Day surgery (SDC) | payer OTHER, BC ==
[2019-04-09 11:32] VITALS: TEMP 98.2
[2019-04-09] MEDS ORDERED: ERTAPENEM SODIUM 1 GM in SODIUM CHLORIDE 100 ML IVPB ONE (11:45)
[2019-04-09] MEDS ORDERED: SODIUM CHLORIDE 100 ML IVPB ONE (11:51)
[2019-04-09] MEDS ORDERED: ERTAPENEM SODIUM 1 GM VIAL ONE (11:51)
[2019-04-09 12:42] VITALS: BP 128/72; PULSE 80
== END 2019-04-09 12:43 | disposition home or self-care (01) ==
LOC: JINFUSION 05:27 → J7W 05:30 → JINFUSION 12:43
PROVIDERS: ATTEND Internal Medicine
DX: M86.9 Osteomyelitis, unspecified (principal)
CPT/HCPCS: 96365

== ENCOUNTER 2019-04-10 05:13 | Day surgery (SDC) | payer OTHER, BC ==
[2019-04-10] MEDS ORDERED: ERTAPENEM SODIUM 1 GM in DEXTROSE 5%-WATER - 50 ML IVPB ONE (11:00)
[2019-04-10] MEDS ORDERED: ERTAPENEM SODIUM 1 GM VIAL ONE (11:07)
[2019-04-10] MEDS ORDERED: DEXTROSE 5%-WATER - 50 ML IVPB ONE (11:07)
== END 2019-04-10 15:48 | disposition home or self-care (01) ==
LOC: JINFUSION 05:13 → J7W 05:13 → JINFUSION 15:48
PROVIDERS: ATTEND Internal Medicine
DX: M86.9 Osteomyelitis, unspecified (principal)
CPT/HCPCS: 96365

== ENCOUNTER 2019-04-11 07:28 | Day surgery (SDC) | payer OTHER, BC ==
[2019-04-11] MEDS ORDERED: ERTAPENEM SODIUM 1 GM VIAL ONE (11:32)
[2019-04-11] MEDS ORDERED: SODIUM CHLORIDE 50 ML IVPB ONE (11:33)
[2019-04-11] MEDS ORDERED: ERTAPENEM SODIUM 1 GM in SODIUM CHLORIDE 50 ML IVPB ONE (12:00)
[2019-04-11 13:37] VITALS: BP 130/70; PULSE 86; TEMP 98
== END 2019-04-11 13:45 | disposition home or self-care (01) ==
LOC: JINFUSION 07:28 → J7W 07:29 → JINFUSION 07:29 → J7W 10:58 → JINFUSION 13:45
PROVIDERS: ATTEND Internal Medicine
DX: M86.9 Osteomyelitis, unspecified (principal)
CPT/HCPCS: 96365

== ENCOUNTER 2019-04-12 05:13 | Day surgery (SDC) | payer OTHER, BC ==
[2019-04-12] MEDS ORDERED: ERTAPENEM SODIUM 1 GM in SODIUM CHLORIDE 50 ML IVPB ONE (12:00)
[2019-04-12] MEDS ORDERED: ERTAPENEM SODIUM 1 GM VIAL ONE (12:06)
[2019-04-12] MEDS ORDERED: SODIUM CHLORIDE 50 ML IVPB ONE (12:06)
[2019-04-12 12:43] LABS: HEMATOCRIT 39.6 % (35.4-49); HEMOGLOBIN 13.1 GM/dL (11.7-16.9); MCH 26.2 pg (25.7-33.7); MEAN CELL VOLUME 79.3 fl (80-96); MEAN PLT VOLUME 8.6 fl (7.5-11.1); PLATELET COUNT 287 K/MM3 (134-434); RBC 4.99 M/mm3 (4.00-5.60); RDW 16.9 % (11.9-15.9); WHITE BLOOD COUNT 7.8 K/mm3 (4.0-10.0)
[2019-04-12 13:15] LABS: ALBUMIN 3.4 g/dl (3.4-5.0); BILIRUBIN,TOTAL 0.5 mg/dL (0.2-1); BLOOD UREA NITROGEN 36.4 mg/dL (7-18); CALCIUM 8.9 mg/dL (8.5-10.1); CREATININE 1.5 mg/dL (0.55-1.3); TOT PROT 7.6 g/dl (6.4-8.2)
[2019-04-12 13:19] VITALS: BP 124/69; PULSE 69; TEMP 98.2
[2019-04-12 14:45] LABS: ERYTHROCYTE SEDIMENTATION RATE 44 mm/hr (0-20)
== END 2019-04-12 13:20 | disposition home or self-care (01) ==
LOC: JINFUSION 05:13 → J7W 10:53 → JINFUSION 13:20
PROVIDERS: ATTEND Internal Medicine
DX: M86.9 Osteomyelitis, unspecified (principal)
CPT/HCPCS: 36415; 80053; 85027; 85651; 86140; 96365

== ENCOUNTER 2019-04-13 10:54 | Day surgery (SDC) | payer OTHER, BC ==
[2019-04-13] MEDS ORDERED: ERTAPENEM SODIUM 1 GM in SODIUM CHLORIDE 50 ML IVPB ONE (11:30)
[2019-04-13] MEDS ORDERED: SODIUM CHLORIDE 50 ML IVPB ONE (11:35)
[2019-04-13] MEDS ORDERED: ERTAPENEM SODIUM 1 GM VIAL ONE (11:35)
[2019-04-13 12:56] VITALS: BP 130/71; PULSE 66; TEMP 98
== END 2019-04-13 13:00 | disposition home or self-care (01) ==
LOC: JINFUSION 10:54 → J7W 10:58 → JINFUSION 13:00
PROVIDERS: ATTEND Internal Medicine
DX: M86.9 Osteomyelitis, unspecified (principal)
CPT/HCPCS: 96365

== ENCOUNTER 2019-04-14 11:15 | Day surgery (SDC) | payer OTHER, BC ==
[2019-04-14] MEDS ORDERED: SODIUM CHLORIDE 50 ML IVPB ONE (11:38)
[2019-04-14] MEDS ORDERED: ERTAPENEM SODIUM 1 GM VIAL ONE (11:38)
[2019-04-14 11:45] VITALS: BP 134/74; PULSE 65; TEMP 97.5
[2019-04-14] MEDS ORDERED: ERTAPENEM SODIUM 1 GM in SODIUM CHLORIDE 50 ML IVPB ONE (11:45)
== END 2019-04-14 12:30 | disposition home or self-care (01) ==
LOC: J7W 11:15 → JINFUSION 11:15
PROVIDERS: ATTEND Internal Medicine
DX: M86.9 Osteomyelitis, unspecified (principal)
CPT/HCPCS: 96365

== ENCOUNTER 2019-04-15 10:59 | Day surgery (SDC) | payer OTHER, BC ==
[2019-04-15] MEDS ORDERED: ERTAPENEM SODIUM 1 GM VIAL ONE (11:52)
[2019-04-15] MEDS ORDERED: SODIUM CHLORIDE 50 ML IVPB ONE (11:52)
[2019-04-15] MEDS ORDERED: ERTAPENEM SODIUM 1 GM in SODIUM CHLORIDE 50 ML IVPB ONE (12:00)
[2019-04-15 12:23] VITALS: BP 149/74; PULSE 69; TEMP 98.8
== END 2019-04-15 12:24 | disposition home or self-care (01) ==
LOC: JINFUSION 10:59 → J7W 11:01 → JINFUSION 12:24
PROVIDERS: ATTEND Internal Medicine
DX: M86.9 Osteomyelitis, unspecified (principal)
CPT/HCPCS: 96365

== ENCOUNTER 2019-04-16 11:13 | Day surgery (SDC) | payer OTHER, BC ==
[2019-04-16] MEDS ORDERED: ERTAPENEM SODIUM 1 GM in SODIUM CHLORIDE 50 ML IVPB ONE (12:00)
[2019-04-16] MEDS ORDERED: SODIUM CHLORIDE 50 ML IVPB ONE (12:31)
[2019-04-16] MEDS ORDERED: ERTAPENEM SODIUM 1 GM VIAL ONE (12:31)
[2019-04-16 14:21] VITALS: BP 123/72; PULSE 62; TEMP 98.1
== END 2019-04-16 13:10 | disposition home or self-care (01) ==
LOC: JINFUSION 11:13 → J7W 11:14 → JINFUSION 13:10
PROVIDERS: ATTEND Internal Medicine
DX: M86.9 Osteomyelitis, unspecified (principal)
CPT/HCPCS: 96365; 96367

== ENCOUNTER 2019-04-17 05:51 | Day surgery (SDC) | payer OTHER, BC ==
[2019-04-17] MEDS ORDERED: ERTAPENEM SODIUM 1 GM in SODIUM CHLORIDE 50 ML IVPB ONE ×2 (10:45→10:50)
[2019-04-17] MEDS ORDERED: ERTAPENEM SODIUM 1 GM VIAL ONE (10:55)
[2019-04-17] MEDS ORDERED: SODIUM CHLORIDE 50 ML IVPB ONE (10:56)
[2019-04-17 12:25] VITALS: BP 136/84; PULSE 86; TEMP 97.5
== END 2019-04-17 12:49 | disposition home or self-care (01) ==
LOC: JINFUSION 05:51 → J7W 10:03 → JINFUSION 12:49
PROVIDERS: ATTEND Internal Medicine
DX: M86.9 Osteomyelitis, unspecified (principal)
CPT/HCPCS: 96365

== ENCOUNTER 2019-04-18 05:24 | Day surgery (SDC) | payer OTHER, BC ==
[2019-04-18] MEDS ORDERED: ERTAPENEM SODIUM 1 GM in SODIUM CHLORIDE 50 ML IVPB ONE (11:45)
[2019-04-18] MEDS ORDERED: ERTAPENEM SODIUM 1 GM VIAL ONE (11:51)
[2019-04-18] MEDS ORDERED: SODIUM CHLORIDE 50 ML IVPB ONE (11:51)
[2019-04-18 12:56] VITALS: BP 123/72; PULSE 59; TEMP 97.8
== END 2019-04-18 12:55 | disposition home or self-care (01) ==
LOC: JINFUSION 05:24 → J7W 11:26 → JINFUSION 12:55
PROVIDERS: ATTEND Internal Medicine
DX: M86.9 Osteomyelitis, unspecified (principal)
CPT/HCPCS: 96365

== ENCOUNTER 2019-04-19 05:36 | Day surgery (SDC) | payer OTHER, BC ==
[2019-04-19] MEDS ORDERED: ERTAPENEM SODIUM 1 GM in SODIUM CHLORIDE 50 ML IVPB ONE (11:00)
[2019-04-19] MEDS ORDERED: ERTAPENEM SODIUM 1 GM VIAL ONE (11:17)
[2019-04-19] MEDS ORDERED: SODIUM CHLORIDE 50 ML IVPB ONE (11:18)
[2019-04-19 11:32] LABS: HEMATOCRIT 42.3 % (35.4-49); MCH 26.2 pg (25.7-33.7); MEAN CELL VOLUME 79.3 fl (80-96); MEAN PLT VOLUME 8.4 fl (7.5-11.1); PLATELET COUNT 321 K/MM3 (134-434); RBC 5.33 M/mm3 (4.00-5.60); RDW 16.4 % (11.9-15.9)
[2019-04-19 11:39] VITALS: PULSE 76; TEMP 98.2
[2019-04-19 11:56] VITALS: BP 128/77
[2019-04-19 12:16] LABS: ERYTHROCYTE SEDIMENTATION RATE 12 mm/hr (0-20)
[2019-04-19 13:28] LABS: ALBUMIN 3.5 g/dl (3.4-5.0); ALK PHOS 82 U/L (45-117); ANION GAP 11 MMOL/L (8-16); BILIRUBIN,TOTAL 0.4 mg/dL (0.2-1); BLOOD UREA NITROGEN 64.3 mg/dL (7-18); CALCIUM 8.6 mg/dL (8.5-10.1); CHLORIDE 104 mmol/L (98-107); CO2 23 mmol/L (21-32); CREATININE 1.8 mg/dL (0.55-1.3); GLUCOSE,RANDOM 196 mg/dL (74-106); POTASSIUM 3.9 mmol/L (3.5-5.1); SGOT/AST 14 U/L (15-37); SGPT/ALT 29 U/L (13-61); SODIUM 139 mmol/L (136-145); TOT PROT 7.5 g/dl (6.4-8.2)
== END 2019-04-19 12:00 | disposition home or self-care (01) ==
LOC: JINFUSION 05:36 → J7W 10:25 → JINFUSION 12:00
PROVIDERS: ATTEND Internal Medicine
DX: M86.9 Osteomyelitis, unspecified (principal)
CPT/HCPCS: 36415; 80053; 85027; 85651; 86140; 96365

== ENCOUNTER 2019-04-21 11:31 | Day surgery (SDC) | payer OTHER, BC ==
[2019-04-21 12:04] VITALS: BP 138/97; PULSE 71; TEMP 98.1
[2019-04-21] MEDS ORDERED: ERTAPENEM SODIUM 1 GM VIAL ONE (12:04)
[2019-04-21] MEDS ORDERED: SODIUM CHLORIDE 50 ML IVPB ONE (12:04)
[2019-04-21] MEDS ORDERED: ERTAPENEM SODIUM 1 GM in SODIUM CHLORIDE 50 ML IVPB ONE (12:15)
== END 2019-04-21 13:00 | disposition home or self-care (01) ==
LOC: JINFUSION 11:31 → J7W 11:31 → JINFUSION 13:00
PROVIDERS: ATTEND Internal Medicine
DX: M86.9 Osteomyelitis, unspecified (principal)
CPT/HCPCS: 96365

== ENCOUNTER 2019-09-21 17:15 | Observation (INO) | payer OTHER, BC ==
--- NOTE | 2019-09-21 18:02 | PDOC ---
History of Present Illness - General Chief Complaint: Blood Sugar Problem Stated Complaint: BLOOD SUGAR PROBLEMS Time Seen by Provider: 09/21/19 17:19 - History of Present Illness Initial Comments: 09/21/19 18:00 64 yo male with pmh CKD, IDDM, HTn, afib on plavix, CHF, and 5 stents presents to ED for hypoglycemia. According to pt his blood sugar was around 450. Pt took 60 of novalog and 60 of insulin fiasp 40/60. After which he does not remember what happened. According to EMS pt mother and son found pt down on the floor fac e down. Pt was unresposive and was given 2x 250cc D10 20 min prior to arrival to ED. Pt currently states no symptoms. Pt has no chest pain, SOB, headache, blurry vision, weakness, or pain anywhere. PMH: Afib, ckd, htn, dm DLD, chf Meds: Torsemide 80mg, metroprolol, insulin novalog, insulin fiasp, na and k pills psh: Right foot amputation, left toe amputation, 5 stents Allergies denies Social: drinks one beer a day; denies smoking and drugs PCP: Dr. Alexander Cardio: Dr. Thompson Past History - Medical History Allergies/Adverse Reactions: Allergies Allergy/AdvReac Type Severity Reaction Status Date / Time No Known Drug Allergies Allergy Verified 09/21/19 17:45 Home Medications: Ambulatory Orders Insulin (Novolog 70/30) [Novolog Mix 70/30 Flexpen -] 60 units SQ BID 06/28/16 Liraglutide [Victoza -] 1.8 mg SQ DAILY 06/07/17 Clopidogrel Bisulfate [Plavix] 75 mg PO DAILY 04/23/18 Icosapent Ethyl [Vascepa] 2 gm PO BID 07/03/18 Metoprolol Succinate [Toprol Xl] 100 mg PO DAILY 07/23/18 Aspirin Coated [Ecotrin -] 81 mg PO DAILY tablet.ec 02/20/19 Atorvastatin Ca [Lipitor] 40 mg PO HS tablet 02/20/19 Losartan Potassium [Cozaar -] 25 mg PO DAILY tablet 02/20/19 Pantoprazole Sodium [Protonix -] 40 mg PO DAILY tablet.ec 02/20/19 Torsemide [Demadex -] 60 mg PO DAILY tablet 02/20/19 Sodium Bicarbonate - 650 mg PO DAILY 03/15/19 Fluocinonide 0.05% Cream [Lidex 0.05% Cream -] 1 applic TP DAILY #1 tube 07/31/19 Nitroglycerin 1 tab PO DAILY 07/31/19 Mupirocin Cream [Bactroban 2% Cream -] 1 applic TP DAILY #1 tube 08/28/19 Anemia: No Asthma: No Cancer: No Cardiac Disorders: Yes (5 stents) CVA: No COPD: No CHF: Yes Dementia: No Diabetes: Yes GI Disorders: No Disorders: No HTN: Yes Hypercholesterolemia: Yes Liver Disease: No Seizures: No Thyroid Disease: No - Surgical History Abdominal Surgery: No Appendectomy: No Cardiac Surgery: Yes (stent placement) Cholecystectomy: No Lung Surgery: No Neurologic Surgery: No Orthopedic Surgery: Yes (Transmetatarsal amputation of right foot) - Immunization History Immunization Up to Date: Yes - Psycho-Social/Smoking History Smoking Status: Yes Smoking History: Never smoked Have you smoked in the past 12 months: No Number of Cigarettes Smoked Daily: 10 If you are a former smoker, when did you quit?: 2016 Cigars Per Day: 0 'Breaking Loose' booklet given: 04/10/15 - Substance Abuse Hx (Audit-C & DAST Scrn) How often the patient has a drink containing alcohol: Never Score: In Men: 4 or > Positive; In Women: 3 or > Positive: 0 Screen Result (Pos requires Nsg. Audit-10AR): Negative In the last yr the pt used illegal drug/Rx for NonMed reason: No Score: Yes response is considered Positive: 0 Screen Result (Positive result requires Nsg. DAST-10): Negative Review of Systems - Review of Systems Comments:: 09/22/19 12:10 GENERAL/CONSTITUTIONAL: No fever or chills. No weakness. HEAD, EYES, EARS, NOSE AND THROAT: No change in vision. No ear pain or discharge. No sore throat. CARDIOVASCULAR: No chest pain or shortness of breath RESPIRATORY: No cough, wheezing, or hemoptysis. GASTROINTESTINAL: No nausea, vomiting, diarrhea or constipation. GENITOURINARY: No dysuria, frequency, or change in urination. MUSCULOSKELETAL: No joint or muscle swelling or pain. No neck or back pain. SKIN: No rash NEUROLOGIC: No headache, vertigo, loss of consciousness, or change in str ength/sensation. ENDOCRINE: No increased thirst. No abnormal weight change ALLERGIC/IMMUNOLOGIC: No hives or skin allergy. Is the patient limited [place] proficient: No *Physical Exam - Vital Signs Last Vital Signs Temp Pulse Resp BP Pulse Ox 97.0 F L 60 18 155/92 98 09/21/19 17:47 09/21/19 17:47 09/21/19 17:47 09/21/19 17:47 09/21/19 17:47 - Physical Exam 09/21/19 19:45 GENERAL: Awake, alert, and fully oriented, in no acute distress HEAD: Abrasion on right eyebrow EYES: PERRLA, EOMI, sclera anicteric, conjunctiva clear ENT: Auricles normal inspection, hearing grossly normal, nares patent, oropharynx clear without exudates. Moist mucosa NECK: Normal ROM, supple, no lymphadenopathy, JVD, or masses LUNGS: Rhonchi on left side HEART: Regular rate and rhythm, normal S1 and S2, no murmurs, rubs or gallops, peripheral pulses normal and equal bilaterally. ABDOMEN: Distended, nontender, normoactive bowel sounds. No guarding, no rebound. No masses EXTREMITIES : Bilateral nonpitting edema on lower extremity. Left leg and right leg multiple wounds left leg has erythema going up to calf. Right foot half amputated. Left foot one toe missing. NEUROLOGICAL: Cranial nerves II through XII grossly intact. Normal speech, no focal sensorimotor deficits, 5/5 muscle strength in bilateral upper and lower ext. FTN intact, Heel to woods intact. SKIN: cold, Dry, normal turgor, no rashes or lesions noted 09/21/19 19:49 ED Treatment Course - LABORATORY CBC & Chemistry Diagram: 09/22/19 06:07 09/22/19 06:07 - ADDITIONAL ORDERS Additional order review: Laboratory Results 09/21/19 17:37 POC Glucometer 138 09/21/19 17:37 POC Glucometer 138 - RADIOLOGY Radiology Studies Ordered: Category Date Time Status HEAD CT WITHOUT CONTRAST [CT] Stat CT Scan 09/21/19 17:56 Ordered CHEST X-RAY PORTABLE* [RAD] Stat Radiology 09/21/19 17:57 Ordered LEG TIB/FIB-LEFT [RAD] Stat Radiology 09/21/19 17:59 Ordered Medical Decision Making - Medical Decision Making 09/21/19 19:48 64 yo male with pmh of above presents today for hypoglycemia in the 30s after taking 60 of insulin. Pt has cellulitis of left leg will give clindamycin. Pt had syncopal event will get CT scan due to plavix. Pt has bradycardia will assess blood sugar every 60 minutes. Will give oral glucose when pt CT scan comes back. Pt Blood glucose at 7 was 57 so gave two orange juice. Will still need CT to rule out bleed. Got xray of left leg to rule out osteomyelitis. 09/21/19 20:[address] Head was normal will admit for syncope and hypoglycemia. 09/21/19 20:[address] Morin talked about HPI, ED course, and plan. Admit to Dr. Delgado Discharge - Discharge Information Problems reviewed: Yes Clinical Impression/Diagnosis: Syncope, Hypoglycemia, Cellulitis of left leg - Admission Yes - Follow up/Referral - Patient Discharge Instructions - Post Discharge Activity
[2019-09-21 18:24] LABS: BASO % 0.2 % (0-2.0); EOS % 0.4 % (0-4.5); HEMATOCRIT 45.6 % (35.4-49); HEMOGLOBIN 14.7 GM/dL (11.7-16.9); LYMPH % 5.3 % (8-40); MCH 24.7 pg (25.7-33.7); MCHC 32.3 g/dl (32.0-35.9); MEAN CELL VOLUME 76.4 fl (80-96); MONO % 3.8 % (3.8-10.2); NEUT % 90.3 % (42.8-82.8); PLATELET COUNT 282 K/MM3 (134-434); RBC 5.97 M/mm3 (4.00-5.60); WHITE BLOOD COUNT 11.4 K/mm3 (4.0-10.0)
[2019-09-21 18:25] LABS: INR 1.13 (0.83-1.09); PROTHROMBIN TIME (PATIENT) 13.3 SEC (9.7-13.0)
[2019-09-21 18:28] LABS: ACTIVATED PTT 33.8 SECONDS (25.2-36.5)
[2019-09-21 18:38] LABS: ALBUMIN 3.7 g/dl (3.4-5.0); BILIRUBIN,TOTAL 0.6 mg/dL (0.2-1); BLOOD UREA NITROGEN 38.5 mg/dL (7-18); CREATININE 1.9 mg/dL (0.55-1.3); MAGNESIUM 2.6 mg/dL (1.8-2.4); N-TERMINAL BNP 1093.5 pg/ml (5-125); PHOSPHOROUS 3.2 mg/dL (2.5-4.9); POTASSIUM 3.5 mmol/L (3.5-5.1); TOT PROT 8.2 g/dl (6.4-8.2)
--- NOTE | 2019-09-21 18:54 | PDOC ---
Documentation entered by You Cummings SCRIBE, acting as scribe for Mirtha Keyes MD. Mirtha Keyes MD: This documentation has been prepared by the Emiliano matthew Xhesika, SCRIBE, under my direction and personally reviewed by me in its entirety. I confirm that the documentation accurately reflects all work, treatment, procedures, and medical decision making performed by me. Attending Attestation - Resident Resident Name: DatjanellrahatAlliVinayak - ED Attending Attestation I have performed the following: I have examined & evaluated the patient, The case was reviewed & discussed with the resident, I agree w/resident's findings & plan, Exceptions are as noted - HPI HPI: 09/21/19 17:30 The patient is a 63 year old male with a significant past medical history of CAD X6 stents, CHF, HTN, HLD, and DM, pvd right partial foot amputation, who presents to the ED BIBA for syncope and hypoglycemia. Pt states he his BS was in the 400's at home, took 60 of novolog and 60 of his long lasting. Pt states his family then found him down on the floor, called EMS and his BS was in the 40's. Pt states he does not recall much of the incident. denies any fever or chills. no cp no sob . no recollection of the events. does have h/o chronic left lower woods ulcer, and has had some "water blisters on his leg" which were avulsed when he fell. no current complaints of pain. Allergies: NKDA PCP: Veda Henry Cards: Dr. Thompson 09/21/19 18:38 - Physicial Exam PE: 09/21/19 18:41 awake alert lungs clear bilat heart rrr no mrg abd obese, nontender, ext wwp left lower ext few avulsed anterior woods wounds. one chronic wound, some yellow drainage on dressing, small surrounding erythema. warmth. right foot small lateral woods wound. nuero alert oriented x 3. moves all four ext 5/5. speech clear. - Medical Decision Making 09/21/19 18:43 64 yo male h/o dm here with hypoglycemic episode, pvd, htn hld cad, syncopal episode. plan will admit to telemetry. concerns for wound infection left lower ext. will treat with iv antiobiotics. cxr ct head. monitor for recurrent hypoglycemia. Discharge - Discharge Information Problems reviewed: Yes Clinical Impression/Diagnosis: Syncope, Hypoglycemia - Admission Yes - Follow up/Referral Referrals: Veda Alexander MD [Primary Care Provider] - - Patient Discharge Instructions - Post Discharge Activity
[2019-09-21] MEDS ORDERED: CLINDAMYCIN 600MG PREMIX IVPB 600 MG/50 ML BAG IVPB ONE ×2 (19:07→20:03)
--- NOTE | 2019-09-21 21:17 | PN ---
Teaching Attending Note Name of Resident: Prashant Pulliam ATTENDING PHYSICIAN STATEMENT I saw and evaluated the patient. I reviewed the resident's note and discussed the case with the resident. I agree with the resident's findings and plan as documented. SUBJECTIVE: Patient is a 63 year old man with a PMH of CAD (6 stents), CHF, HTN, HLD, ?CKD, NIDDM, Osteomyelitis, Remote MRSA infection, PVD, Left big toe amputation and Right transmetatarsal foot amputation, who presents to the ER via EMS for syncope and hypoglycemia. States his blood glucose was in the 400's at home and he took 60u of Novolog and 60u of his long acting insulin?. His family then found him down on the floor, called EMS and his BS was in the 40's. Does not recall much of the incident. Does have chronic left lower woods ulcer, and has had some "water blisters on his leg" which were avulsed when he fell. Uses wheelchair. No current complaints of pain. Patient denies chest pain, shortness of breath, abdominal pain, headache, palpitations, dizziness, fever, chills, nausea, vomiting, diarrhea, constipation, dysuria, frequency, urgency, melena, hematochezia or hematuria. Denies alcohol, tobacco or illicit drug use. No sick contacts or recent travels. Family history - both parents of [place]. OBJECTIVE: Alert and not orthostatic Vital Signs Period Temp Pulse Resp BP Sys/Peter Pulse Ox Last 24 Hr 97.0 F 60 18 155/92 96-98 HEENT: No Jaundice, eye redness or discharge, PERRLA, EOMI. Normocephalic, atraumatic. External ears are normal and hearing is grossly intact. No nasal discharge. Neck: Supple, nontender. No palpable adenopathy or thyromegaly. No JVD Chest: Good effort. Clear to auscultation and percussion. Heart: Regular. No S3, rub or murmur Abdomen: Not distended, soft, nontender and no HSM. No rebound or guarding. Normal bowel sounds. Ext: Peripheral pulses intact. Left big toe amputation; right TMA, right leg wound, left leg blisters with ulcers, erythematous changes. No pitting edema. Skin: Warm and dry. No petechiae, rash or ecchymosis. Neuro: Alert. Oriented x3. CN 2-12 grossly intact. Sensation grossly intact in all four extremities and DTR are symmetric. Psych: Appropriate mood and affect. Good insight. Home Medications Medication Instructions Recorded Insulin (Novolog 70/30) [Novolog 60 units SQ BID 06/28/16 Mix 70/30 Flexpen -] Liraglutide [Victoza -] 1.8 mg SQ DAILY 06/07/17 Clopidogrel Bisulfate [Plavix] 75 mg PO DAILY 04/23/18 Icosapent Ethyl [Vascepa] 2 gm PO BID 07/03/18 Metoprolol Succinate [Toprol Xl] 100 mg PO DAILY 07/23/18 Aspirin Coated [Ecotrin -] 81 mg PO DAILY tablet.ec 02/20/19 Atorvastatin Ca [Lipitor] 40 mg PO HS tablet 02/20/19 Losartan Potassium [Cozaar -] 25 mg PO DAILY tablet 02/20/19 Pantoprazole Sodium [Protonix -] 40 mg PO DAILY tablet.ec 02/20/19 Torsemide [Demadex -] 60 mg PO DAILY tablet 02/20/19 Sodium Bicarbonate - 650 mg PO DAILY 03/15/19 Fluocinonide 0.05% Cream [Lidex 1 applic TP DAILY #1 tube 07/31/19 0.05% Cream -] Nitroglycerin 1 tab PO DAILY 07/31/19 Mupirocin Cream [Bactroban 2% 1 applic TP DAILY #1 tube 08/28/19 Cream -] Abnormal Lab Results 09/21/19 09/21/19 09/21/19 17:55 17:55 17:55 WBC 11.4 H RBC 5.97 H MCV 76.4 L MCH 24.7 L RDW 19.0 H Absolute Neuts (auto) 10.3 H Neutrophils % 90.3 H Lymphocytes % 5.3 L D PT with INR 13.30 H INR 1.13 H BUN 38.5 H Creatinine 1.9 H Random Glucose 119 H Magnesium 2.6 H B-Natriuretic Peptide 1093.5 H Current Medications Generic Name Dose Route Start Last Admin Trade Name Freq PRN Reason Stop Dose Admin Aspirin 81 mg 09/22/19 10:00 Ecotrin - PO DAILY IGGY Atorvastatin Calcium 40 mg 09/22/19 22:00 Lipitor - PO HS [facility] Clopidogrel Bisulfate 75 mg 09/22/19 10:00 Plavix - PO DAILY IGGY Heparin Sodium (Porcine) 5,000 unit 09/22/19 06:00 Heparin - SQ TID IGGY Dextrose/Sodium Chloride 1,000 mls @ 75 mls/hr 09/21/19 23:00 09/21/19 23:48 D5-Ns - IV 75 mls/hr ASDIR IGGY Administration Piperacillin Sod/Tazobactam 50 mls @ 100 mls/hr 09/21/19 23:15 09/21/19 23:48 Sod 3.375 gm/ Dextrose IVPB 100 mls/hr Q8H-IV IGGY Administration Protocol Piperacillin Sod/Tazobactam 50 mls @ 100 mls/hr 09/21/19 23:30 Sod 3.375 gm/ Dextrose IVPB 09/22/19 18:29 Q8H-IV IGGY Protocol Losartan Potassium 25 mg 09/22/19 10:00 Cozaar - PO DAILY IGGY Metoprolol Succinate 100 mg 09/22/19 10:00 Toprol Xl - PO DAILY IGGY Pantoprazole Sodium 40 mg 09/22/19 10:00 Protonix - PO DAILY IGGY Torsemide 60 mg 09/22/19 10:00 Demadex - PO DAILY IGGY Vancomycin HCl 1,000 mg 09/21/19 23:03 Vancomycin (Pre-Docked) IVPB DAILY IGGY Protocol ASSESSMENT AND PLAN: 1. Syncope/Cellulitis - Syncope likely due to iatrogenic hypoglycemia from insulin overdose. Cellulitis may have contributed to the antecedent bout of hyperglycemia. CXR shows cardiomegaly with prominent mediastinum but no no evidence of acute lung disease. No evidence of acute intracranial pathology on noncontrast head CT scan. Xray of left tibia/fibula didnot show fracture, dislocation or gas collection. Will admit to telemetry, trend troponin, get ECHO, do neurochecks and implement fall/aspiration/seizure precautions. Sepsis workup being done and will treat with IV Vancomycin, IV Zosyn - dose- adjusted for GFR and gentle IV D5NS. Consult ID. EKG shows bradycardia at 56/minute, IRBBB, 1o AV block and QTc [address]-T wave changes. Initial troponin is negative. Viral testing for COVID-19 ordered and patient placed on airborne, droplet and contact isolation. Will continue comprehensive care for all of patients comorbid conditions. 2. DM Will give D5NS and hold the home diabetes drugs and implement sliding scale insulin regimen. Provide comprehensive diabetes care with patient teaching and counseling about the importance of adherence to prescribed diabetes regimen, euglycemia, eye care and foot care. 3. CKD? Has chronic proteinuria - possibly diabetic nephropathy. Hold diuretic. Will get urinalysis, kidney sonogram, hydrate gently, monitor urine output and consult Nephrology. Avoid nephrotoxic agents such as NSAIDS, aminoglycosides, contrast dyes and certain Alternative medicine products. 4. Morbid obesity Counseled on the risks associated with obesity. Will provide patient all the necessary assistance, counseling and positive reinforcement to facilitate weight loss. Consult hr director. 5. Hypertension Will restart suitable outpatient antihypertensive drugs when clinically appropriate. Subsequently, will revise regimen to ensure [id number] excellent BP control. Patient counseled on the injurious effects of uncontrolled hypertension. Nonpharmacologic measures to control hypertension like weight loss, salt restriction and exercise stressed. Importance of adherence to treatment regimen and attainment of normotension emphasized. 6. DVT prophylaxis - Heparin 5000u sq tid. 7. Advance directives - Full code
[2019-09-21] MEDS ORDERED: DEXTROSE 5%-NORMAL SALINE 1,000 ML IV SCH (23:00)
--- NOTE | 2019-09-21 23:09 | HP ---
CHIEF COMPLAINT: syncopal episode PCP: Dr. Alexander Endocrine: Dr. Anguiano HISTORY OF PRESENT ILLNESS: Patient is a 64 year old male with history of coronary artery disease (s/p stents in 2008), diabetes mellitus (insulin dependent), CKD, hypetension, hyperlipidemia, osteomyelitis left foot, presents after syncopal episode. Patient reports that he woke up this morning and checked fasting blood glucose at 10AM which read 445. He states that he took 60 units Insulin Novolog, in addition to 60 units Insulin Fisp. He proceeded to watch TV, and attempted to get up to get breakfast when he lost consciousness. He denies any prodromal chest pain, palpitations, shortness of breath, nausea,vomiting. Patient states that this is an abnormally elevated level for his fasting AM blood glucose readings (usually in the low - mid 100s). He also denies prior history of hypoglycemia. 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 White) last week. Denies subjective fevers, chills. ER course was notable for: (1) EKG, troponin 0,02 (2) Blood glucose 57 -> 185 (3) Vancomycin, Zosyn Recent Travel: denies PAST MEDICAL HISTORY: coronary artery disease, diabetes mellitus (insulin dependent), CKD, hypetension, hyperlipidemia, osteomyelitis left foot, PAST SURGICAL HISTORY: coronary stenting, right foot amputation, left 5th toe amputation FAMILY HISTORY: Mother ID (passed at 69 years old), Father ID (passed in his 70s) Social History: Lives with and child. Smoking: Former smoker; endorses extensive smoking history Alcohol: denies alcohol consumption Drugs: denies illicit drug use Allergies No Known Drug Allergies Allergy (Verified 09/21/19 17:45) HOME MEDICATIONS: Home Medications Medication Instructions Recorded Insulin (Novolog 70/30) [Novolog 60 units SQ BID 06/28/16 Mix 70/30 Flexpen -] Liraglutide [Victoza -] 1.8 mg SQ DAILY 06/07/17 Clopidogrel Bisulfate [Plavix] 75 mg PO DAILY 04/23/18 Icosapent Ethyl [Vascepa] 2 gm PO BID 07/03/18 Metoprolol Succinate [Toprol Xl] 100 mg PO DAILY 07/23/18 Aspirin Coated [Ecotrin -] 81 mg PO DAILY tablet.ec 02/20/19 Atorvastatin Ca [Lipitor] 40 mg PO HS tablet 02/20/19 Losartan Potassium [Cozaar -] 25 mg PO DAILY tablet 02/20/19 Pantoprazole Sodium [Protonix -] 40 mg PO DAILY tablet.ec 02/20/19 Torsemide [Demadex -] 60 mg PO DAILY tablet 02/20/19 Sodium Bicarbonate - 650 mg PO DAILY 03/15/19 Fluocinonide 0.05% Cream [Lidex 1 applic TP DAILY #1 tube 07/31/19 0.05% Cream -] Nitroglycerin 1 tab PO DAILY 07/31/19 Mupirocin Cream [Bactroban 2% 1 applic TP DAILY #1 tube 08/28/19 Cream -] REVIEW OF SYSTEMS As per HPI PHYSICAL EXAMINATION Vital Signs - 24 hr 09/21/19 09/21/19 17:47 18:08 Temperature 97.0 F L Pulse Rate 60 Respiratory 18 Rate Blood Pressure 155/92 O2 Sat by Pulse 98 96 Oximetry (%) GENERAL: The patient is awake, alert, and fully oriented, in no acute distress. HEAD: Normocephalic, atraumatic. EYES: PERRL, extraocular movements intact, sclera anicteric, conjunctiva clear. ENT: Oropharynx clear, without erythema or exudates. Moist mucous membranes. NECK: Trachea midline, full range of motion. Supple without lymphadenopathy. LUNGS: Breath sounds equal, clear to auscultation bilaterally. No wheezes, no crackles. No accessory muscle use. HEART: Regular rate and rhythm. S1, S2 without murmur, rub or gallop. ABDOMEN: Obese abdomen. Soft, nondistended, nontender to light and deep palpation x4 quadrants. No rebound tenderness, no guarding. Normoactive bowel sounds x4 quadrants. No hepatosplenomegaly, no masses appreciated. EXTREMITIES: right lower extremity two 2cm x 2cm lesions, with surrounding erythema along lateral leg. negative expressed purulence. foot s/p amputation. left lower extremity: three 2cm x 2cm and two 1cm x 1cm areas of epidermal sloughing with clear drainage. Surrounding eryhtma noted. healing anterior lower extremity ulcer. 2+ radial, dorsalis pedis pulses bilaterally. Warm, well-perfused. No lower extremity edema bilaterally. NEUROLOGICAL: Cranial nerves II through XII grossly intact. Normal speech. No gross focal deficits. PSYCH: Normal mood, normal affect upon my encounter. SKIN: Warm, dry. Laboratory Results - last 24 hr 09/21/19 09/21/19 09/21/19 17:37 17:55 17:55 WBC 11.4 H RBC 5.97 H Hgb 14.7 Hct 45.6 MCV 76.4 L MCH 24.7 L MCHC 32.3 RDW 19.0 H Plt Count 282 MPV 9.0 Absolute Neuts (auto) 10.3 H Neutrophils % 90.3 H Lymphocytes % 5.3 L D Monocytes % 3.8 Eosinophils % 0.4 D Basophils % 0.2 Nucleated RBC % 0 PT with INR INR PTT (Actin FS) Sodium 142 Potassium 3.5 Chloride 104 Carbon Dioxide 26 Anion Gap 12 BUN 38.5 H Creatinine 1.9 H Est GFR (CKD-EPI)AfAm 42.84 Est GFR (CKD-EPI)NonAf 36.96 POC Glucometer 138 Random Glucose 119 H Calcium 9.0 Phosphorus 3.2 Magnesium 2.6 H Total Bilirubin 0.6 AST 23 ALT 22 Alkaline Phosphatase 85 Creatine Kinase 195 Creatine Kinase Index 1.6 CK-MB (CK-2) 3.2 Troponin I 0.02 B-Natriuretic Peptide 1093.5 H Total Protein 8.2 Albumin 3.7 09/21/19 09/21/19 09/21/19 17:55 19:22 20:08 WBC RBC Hgb Hct MCV MCH MCHC RDW Plt Count MPV Absolute Neuts (auto) Neutrophils % Lymphocytes % Monocytes % Eosinophils % Basophils % Nucleated RBC % PT with INR 13.30 H INR 1.13 H PTT (Actin FS) 33.8 Sodium Potassium Chloride Carbon Dioxide Anion Gap BUN Creatinine Est GFR (CKD-EPI)AfAm Est GFR (CKD-EPI)NonAf POC Glucometer 57 77 Random Glucose Calcium Phosphorus Magnesium Total Bilirubin AST ALT Alkaline Phosphatase Creatine Kinase Creatine Kinase Index CK-MB (CK-2) Troponin I B-Natriuretic Peptide Total Protein Albumin ASSESSMENT/PLAN: Patient is a 64 year old male with history of coronary artery disease (s/p stents in 2008), diabetes mellitus (insulin dependent), CKD, hypetension, hyperlipidemia, osteomyelitis left foot, presents after syncopal episode. Syncopal episode -Suspect likely secondary to hypoglycemia due to excessive insulin administration. -Fingestick BGM upon ED presentation was 57. Patient currently receiving D5-NS at 75mL/ hour due to concern of amount, and half life of his administered long acting insulin. Blood glucose slowly stabilizing (current fingerstick 185). Will repeat BMP, and discontinue Dextrose fluids if glucose remains stable, and initiate sliding scale. Holding home long acting insulin currently, however should be reinstated once patient is off dextrose fluids, and eating. -CT head negative for acute pathology. -Endocrinology consult (Dr. Anguiano) requested -Telemetry cardiac monitoring -EKG reveals incomplete RBB (noted on prior studies), sinus bradycardia, first degree block. Upon my encounter, patient's heart rate in the 80s. -Initial troponin 0.02. Will trend -Obtain cardiac ECHO -Obtain carotid duplex US Lower extremity cellulitis -Concern for lower extremity infection as contributory source of hyperglycemia. -Obtain blood cultures, urine cultures -Will treat with Vancomycin, Zosyn (dosed for GFR) given patient's past microbiology cultures (MRSA, Proteus, Enterococcus) History of coronary artery disease -Continue home Aspirin, Clopidogrel, Atorvastatin. History of hypertension -Continue home Metoprolol, Losartan History of hyperlipidemia -Continue home Atorvastatin Chronic kidney disease -BUN 38.5/ Cr 1.9 (baseline approx 1.8) -Obtain urinalysis, renal US -Continue Torsemide -Nephrology consult (patient seen by Dr. Reynoso in past) FEN -D5 NS at 75mL/ hour -Follow BMP -Diabetic diet Prophylaxis -Heparin 5000 units subq TID Disposition -Admit to Telemetry floor. Family Medical History Family History: As Documented Visit type - Emergency Visit Emergency Visit: Yes ED Registration Date: 09/21/19 Care time: The patient presented to the Emergency Department on the above date and was hospitalized for further evaluation of their emergent condition. - New Patient This patient is new to me today: Yes Date on this admission: 09/22/19 - Critical Care Critical Care patient: No ATTENDING PHYSICIAN STATEMENT I saw and evaluated the patient. I reviewed the resident's note and discussed the case with the resident. I agree with the resident's findings and plan as documented. SUBJECTIVE: OBJECTIVE: ASSESSMENT AND PLAN:
[2019-09-21] MEDS ORDERED: VANCOMYCIN 1 GM in D5W (PRE-DOCKED) 1,000 MG/250 ML IVPB SCH (23:15)
[2019-09-21] MEDS ORDERED: PIPERACILLIN/TAZOB 2.25 GM 2.25 GM/50 ML BAG IVPB ONE (23:17)
[2019-09-21] MEDS ORDERED: VANCOMYCIN 1 GRAM (PRE-DOCKED) 1,000 MG/250 ML BAG IVPB ONE (23:18)
[2019-09-21] MEDS: PIPERACILLIN/TAZOB 3.375 GM 3.375 GM in DEXTROSE 5%-WATER - 50 ML IVPB SCH (23:48)
[2019-09-22] MEDS: PIPERACILLIN/TAZOB 3.375 GM 3.375 GM in DEXTROSE 5%-WATER - 50 ML IVPB SCH ×5 (00:25→17:58)
[2019-09-22] MEDS ORDERED: PANTOPRAZOLE 40 MG TABLET ONE (06:57)
[2019-09-22] MEDS ORDERED: HEPARIN NA (PORCINE) 5,000 UNITS/ML 1ML VIAL ONE ×2 (06:58→15:25)
[2019-09-22] MEDS: PANTOPRAZOLE 40 MG TABLET PO SCH (07:03)
[2019-09-22] MEDS: HEPARIN NA (PORCINE) 5,000 UNITS/ML 1ML VIAL SQ SCH ×3 (07:03→22:09)
[2019-09-22 07:08] LABS: HEMOGLOBIN 13.5 GM/dL (11.7-16.9); MCH 24.5 pg (25.7-33.7); MCHC 32.9 g/dl (32.0-35.9); MEAN CELL VOLUME 74.5 fl (80-96); MEAN PLT VOLUME 8.9 fl (7.5-11.1); PLATELET COUNT 275 K/MM3 (134-434); WHITE BLOOD COUNT 9.7 K/mm3 (4.0-10.0)
[2019-09-22 07:25] LABS: ALBUMIN 3.1 g/dl (3.4-5.0); BLOOD UREA NITROGEN 33.7 mg/dL (7-18); CALCIUM 8.4 mg/dL (8.5-10.1); CREATININE 1.6 mg/dL (0.55-1.3); MAGNESIUM 2.2 mg/dL (1.8-2.4); PHOSPHOROUS 2.8 mg/dL (2.5-4.9); POTASSIUM 3.6 mmol/L (3.5-5.1); TOT PROT 6.9 g/dl (6.4-8.2)
[2019-09-22 07:32] LABS: BILIRUBIN,TOTAL 1.1 mg/dL (0.2-1)
[2019-09-22] MEDS ORDERED: ASPIRIN COATED 81 MG TABLET.EC ONE (10:57)
[2019-09-22] MEDS ORDERED: PIPERACILLIN/TAZOB 3.375 GM 3.375 GM/50 ML BAG IVPB ONE (10:58)
[2019-09-22] MEDS ORDERED: CLOPIDOGREL BISULFATE 75 MG TABLET (FP) ONE (10:58)
[2019-09-22] MEDS: LOSARTAN POTASSIUM 25 MG TABLET PO SCH (11:01)
[2019-09-22] MEDS: TORSEMIDE 20 MG TABLET (FP) PO SCH (11:02)
[2019-09-22] MEDS: ASPIRIN COATED 81 MG TABLET.EC PO SCH (11:02)
[2019-09-22] MEDS: CLOPIDOGREL BISULFATE 75 MG TABLET (FP) PO SCH (11:02)
--- NOTE | 2019-09-22 13:25 | PN ---
Physical Exam: SUBJECTIVE: Patient seen and examined. He reports being unsure about the syncope and that maybe his insulin had to do with it. He is complaining of his chronic leg wounds not being covered with Silvadene. He denies fever, chills, chest pain, shortness of breath, nausea or vomiting. OBJECTIVE: Vital Signs Period Temp Pulse Resp BP Sys/Peter Pulse Ox Last 24 Hr 97.0 F-98.3 F 60-84 17-18 147-155/60-92 96-100 GENERAL: A&Ox3, no acute distress HEAD: Atraumatic EYES: PERRL, extraocular movements intact ENT: Ears normal, nares patent, moist mucous membranes NECK: Trachea midline, full range of motion LUNGS: Clear to auscultation bilaterally HEART: RRR, no murmur ABDOMEN: Soft, nontender, nondistended, normoactive bowel sounds EXTREMITIES: Warm, well-perfused, no edema in upper extremities, anterior surface of LLE erythematous, not warm, with 3 small/medium skin tears and 5th toe amputation, right leg bandaged near ankle with partial amputation of foot NEUROLOGICAL: Cranial nerves II through XII grossly intact. Normal speech PSYCH: Normal mood, normal affect SKIN: Warm, dry, normal turgor Laboratory Results - last 24 hr 09/21/19 09/21/19 09/21/19 17:37 17:55 17:55 WBC 11.4 H RBC 5.97 H Hgb 14.7 Hct 45.6 MCV 76.4 L MCH 24.7 L MCHC 32.3 RDW 19.0 H Plt Count 282 MPV 9.0 Absolute Neuts (auto) 10.3 H Neutrophils % 90.3 H Lymphocytes % 5.3 L D Monocytes % 3.8 Eosinophils % 0.4 D Basophils % 0.2 Nucleated RBC % 0 PT with INR INR PTT (Actin FS) Sodium 142 Potassium 3.5 Chloride 104 Carbon Dioxide 26 Anion Gap 12 BUN 38.5 H Creatinine 1.9 H Est GFR (CKD-EPI)AfAm 42.84 Est GFR (CKD-EPI)NonAf 36.96 POC Glucometer 138 Random Glucose 119 H Hemoglobin A1c % Calcium 9.0 Phosphorus 3.2 Magnesium 2.6 H Total Bilirubin 0.6 AST 23 ALT 22 Alkaline Phosphatase 85 Creatine Kinase 195 Creatine Kinase Index 1.6 CK-MB (CK-2) 3.2 Troponin I 0.02 B-Natriuretic Peptide 1093.5 H Total Protein 8.2 Albumin 3.7 09/21/19 09/21/19 09/21/19 17:55 19:22 20:08 WBC RBC Hgb Hct MCV MCH MCHC RDW Plt Count MPV Absolute Neuts (auto) Neutrophils % Lymphocytes % Monocytes % Eosinophils % Basophils % Nucleated RBC % PT with INR 13.30 H INR 1.13 H PTT (Actin FS) 33.8 Sodium Potassium Chloride Carbon Dioxide Anion Gap BUN Creatinine Est GFR (CKD-EPI)AfAm Est GFR (CKD-EPI)NonAf POC Glucometer 57 77 Random Glucose Hemoglobin A1c % Calcium Phosphorus Magnesium Total Bilirubin AST ALT Alkaline Phosphatase Creatine Kinase Creatine Kinase Index CK-MB (CK-2) Troponin I B-Natriuretic Peptide Total Protein Albumin 09/21/19 09/22/19 09/22/19 23:42 03:54 06:07 WBC 9.7 RBC 5.50 Hgb 13.5 Hct 41.0 MCV 74.5 L MCH 24.5 L MCHC 32.9 RDW 19.0 H Plt Count 275 MPV 8.9 Absolute Neuts (auto) Neutrophils % Lymphocytes % Monocytes % Eosinophils % Basophils % Nucleated RBC % PT with INR INR PTT (Actin FS) Sodium Potassium Chloride Carbon Dioxide Anion Gap BUN Creatinine Est GFR (CKD-EPI)AfAm Est GFR (CKD-EPI)NonAf POC Glucometer 155 185 Random Glucose Hemoglobin A1c % Calcium Phosphorus Magnesium Total Bilirubin AST ALT Alkaline Phosphatase Creatine Kinase Creatine Kinase Index CK-MB (CK-2) Troponin I B-Natriuretic Peptide Total Protein Albumin 09/22/19 09/22/19 09/22/19 06:07 06:07 08:27 WBC RBC Hgb Hct MCV MCH MCHC RDW Plt Count MPV Absolute Neuts (auto) Neutrophils % Lymphocytes % Monocytes % Eosinophils % Basophils % Nucleated RBC % PT with INR INR PTT (Actin FS) Sodium 143 Potassium 3.6 Chloride 109 H Carbon Dioxide 23 Anion Gap 11 BUN 33.7 H Creatinine 1.6 H Est GFR (CKD-EPI)AfAm 52.73 Est GFR (CKD-EPI)NonAf 45.50 POC Glucometer 147 Random Glucose 149 H Hemoglobin A1c % 7.2 H Calcium 8.4 L Phosphorus 2.8 Magnesium 2.2 Total Bilirubin 1.1 H AST 24 ALT 20 Alkaline Phosphatase 74 Creatine Kinase Creatine Kinase Index CK-MB (CK-2) Troponin I 0.06 H B-Natriuretic Peptide Total Protein 6.9 Albumin 3.1 L 09/22/19 12:18 WBC RBC Hgb Hct MCV MCH MCHC RDW Plt Count MPV Absolute Neuts (auto) Neutrophils % Lymphocytes % Monocytes % Eosinophils % Basophils % Nucleated RBC % PT with INR INR PTT (Actin FS) Sodium Potassium Chloride Carbon Dioxide Anion Gap BUN Creatinine Est GFR (CKD-EPI)AfAm Est GFR (CKD-EPI)NonAf POC Glucometer 149 Random Glucose Hemoglobin A1c % Calcium Phosphorus Magnesium Total Bilirubin AST ALT Alkaline Phosphatase Creatine Kinase Creatine Kinase Index CK-MB (CK-2) Troponin I B-Natriuretic Peptide Total Protein Albumin Active Medications Generic Name Dose Route Start Last Admin Trade Name Freq PRN Reason Stop Dose Admin Aspirin 81 mg 09/22/19 10:00 09/22/19 11:02 Ecotrin - PO 81 mg DAILY IGGY Administration Atorvastatin Calcium 40 mg 09/22/19 22:00 Lipitor - PO HS IGGY Clopidogrel Bisulfate 75 mg 09/22/19 10:00 09/22/19 11:02 Plavix - PO 75 mg DAILY IGGY Administration Heparin Sodium (Porcine) 5,000 unit 09/22/19 06:00 09/22/19 07:03 Heparin - SQ 5,000 unit TID IGGY Administration Piperacillin Sod/Tazobactam 50 mls @ 100 mls/hr 09/21/19 23:15 09/21/19 23:48 Sod 3.375 gm/ Dextrose IVPB 100 mls/hr Q8H-IV IGGY Administration Protocol Piperacillin Sod/Tazobactam 50 mls @ 100 mls/hr 09/21/19 23:30 09/22/19 11:02 Sod 3.375 gm/ Dextrose IVPB 09/22/19 18:29 100 mls/hr Q8H-IV IGGY Administration Protocol Losartan Potassium 25 mg 09/22/19 10:00 09/22/19 11:01 Cozaar - PO 25 mg DAILY IGGY Administration Metoprolol Succinate 100 mg 09/22/19 10:00 09/22/19 11:02 Toprol Xl - PO 100 mg DAILY IGGY Administration Pantoprazole Sodium 40 mg 09/22/19 07:00 09/22/19 07:03 Protonix - PO 40 mg ACBK IGGY Administration Silver Sulfadiazine 1 applic 09/22/19 13:30 Silvadene - TP DAILY IGGY Torsemide 60 mg 09/22/19 10:00 09/22/19 11:02 Demadex - PO 60 mg DAILY IGGY Administration Vancomycin HCl 1,000 mg 09/21/19 23:03 Vancomycin (Pre-Docked) IVPB DAILY IGGY Protocol ASSESSMENT/PLAN: Pt is a 64 y/o male with CAD (s/p stents 2008), IDDM, CKD 3a, HTN, HLD, left foot osteomyelitis who presents following syncope. He was hypoglycemic at presentation. He is being admitted for syncope. #syncope 2/2 hypoglycemia vs less likely bradycardia vs less likely hypotension -pt on long-acting and short-acting insulins with scale and adjusts long-acting as well, possibly medication error? -improved BG -CT head negative for acute processes -EKG showed sinus bradycardia with 1st degree block -echo and carotid dopplers ordered at admission -consider cardiology f/u at discharge #LLE cellulitis -hx cx MRSA, proteus, enterococcus -Zosyn -Vancomycin -renal dosing -ID consult -blood cx pending #IDDM -A1c 7.2 -BG in 100s now -BGMs -SSI -reinstate long-acting when sugars rise and SSI is not enough coverage -endocrine consult #CAD s/p PCI -continue ASA -continue Plavix #CKD 3a -Cr 1.6 today -monitor function and encourage PO intake -nephrology consult -renal/bladder U/S ordered at admission -continue torsemide #HTN -continue losartan -continue metoprolol as HR is improved #HLD -continue statin DVT Ppx heparin 5000 TID FEN PO fluids monitor Cr diabetic diet dispo med/surg FULL CODE Visit type - Emergency Visit Emergency Visit: Yes ED Registration Date: 09/21/19 Care time: The patient presented to the Emergency Department on the above date and was hospitalized for further evaluation of their emergent condition. - New Patient This patient is new to me today: Yes Date on this admission: 09/22/19 - Critical Care Critical Care patient: No ATTENDING PHYSICIAN STATEMENT I saw and evaluated the patient. I reviewed the resident's note and discussed the case with the resident. I agree with the resident's findings and plan as documented. SUBJECTIVE: OBJECTIVE: ASSESSMENT AND PLAN:
[2019-09-22] MEDS ORDERED: SILVER SULFADIAZINE 1% TOP CREAM 50 GM JAR TP SCH (13:30)
--- NOTE | 2019-09-22 13:55 | PN ---
Progress Note (short form) - Note Progress Note: ID CONSULT DICTATED S/P SYNCOPE SYMPTOMATIC HYPOGLYCEMIA CELLULITIS L LE R/O SEPSIS SECONDARY TO SKIN SOURCE DIABETES MELLITUS AWAIT C/S EMPIRIC VANOCOMYCIN/ ZOSYN ADJUSTED FOR AZOTEMIA
--- NOTE | 2019-09-22 14:17 | PN ---
Teaching Attending Note Name of Resident: Ethel Luis ATTENDING PHYSICIAN STATEMENT I saw and evaluated the patient. I reviewed the resident's note and discussed the case with the resident. I agree with the resident's findings and plan as documented. SUBJECTIVE: Patient is lying in bed with no acute distress. Patient doesn't know what vogel ppened. as per note: Patient is a 64yom with PMhx of CAD (s/p stents in 2008), (insulin dependent)DM, CKD, HTN, HLD, osteomyelitis left foot, presents after syncopal episode. Patient reports that he woke up this morning and checked fasting blood glucose at 10AM which read 445. He states that he took 60 units Insulin Novolog, in addition to 60 units Insulin Fisp. He proceeded to watch TV, and attempted to get up to get breakfast but lost consciousness. OBJECTIVE: Vital Signs Temperature 98.3 F 09/22/19 08:30 Pulse Rate 78 09/22/19 08:30 Respiratory Rate 17 09/22/19 08:30 Blood Pressure 149/69 09/22/19 08:30 O2 Sat by Pulse Oximetry (%) 96 09/22/19 08:30 PE: per resident's note CBCD WBC 9.7 K/mm3 (4.0-10.0) 09/22/19 06:07 RBC 5.50 M/mm3 (4.00-5.60) 09/22/19 06:07 Hgb 13.5 GM/dL (11.7-16.9) 09/22/19 06:07 Hct 41.0 % (35.4-49) 09/22/19 06:07 MCV 74.5 fl (80-96) L 09/22/19 06:07 MCHC 32.9 g/dl (32.0-35.9) 09/22/19 06:07 RDW 19.0 % (11.9-15.9) H 09/22/19 06:07 Plt Count 275 K/MM3 (134-434) 09/22/19 06:07 MPV 8.9 fl (7.5-11.1) 09/22/19 06:07 CMP Sodium 143 mmol/L (136-145) 09/22/19 06:07 Potassium 3.6 mmol/L (3.5-5.1) 09/22/19 06:07 Chloride 109 mmol/L (98-107) H 09/22/19 06:07 Carbon Dioxide 23 mmol/L (21-32) 09/22/19 06:07 Anion Gap 11 MMOL/L (8-16) 09/22/19 06:07 BUN 33.7 mg/dL (7-18) H 09/22/19 06:07 Creatinine 1.6 mg/dL (0.55-1.3) H 09/22/19 06:07 Random Glucose 149 mg/dL (74-106) H 09/22/19 06:07 Calcium 8.4 mg/dL (8.5-10.1) L 09/22/19 06:07 Total Bilirubin 1.1 mg/dL (0.2-1) H 09/22/19 06:07 AST 24 U/L (15-37) 09/22/19 06:07 ALT 20 U/L (13-61) 09/22/19 06:07 Alkaline Phosphatase 74 U/L (45-117) 09/22/19 06:07 Total Protein 6.9 g/dl (6.4-8.2) 09/22/19 06:07 Albumin 3.1 g/dl (3.4-5.0) L 09/22/19 06:07 CARDIAC ENZYMES Creatine Kinase 195 U/L (26-308) 09/21/19 17:55 Troponin I 0.06 ng/ml (0.00-0.05) H 09/22/19 06:07 Current Medications Generic Name Dose Route Start Last Admin Trade Name Freq PRN Reason Stop Dose Admin Aspirin 81 mg 09/22/19 10:00 09/22/19 11:02 Ecotrin - PO 81 mg DAILY IGGY Administration Atorvastatin Calcium 40 mg 09/22/19 22:00 Lipitor - PO HS IGGY Clopidogrel Bisulfate 75 mg 09/22/19 10:00 09/22/19 11:02 Plavix - PO 75 mg DAILY IGGY Administration Heparin Sodium (Porcine) 5,000 unit 09/22/19 06:00 09/22/19 07:03 Heparin - SQ 5,000 unit TID IGGY Administration Piperacillin Sod/Tazobactam 50 mls @ 100 mls/hr 09/22/19 18:00 Sod 3.375 gm/ Dextrose IVPB Q8H-IV IGGY Protocol Vancomycin HCl 1,000 mg in 250 mls @ 200 mls/hr 09/22/19 23:00 Vancomycin (Pre-Docked) IVPB 09/23/19 22:59 Q24H IGGY Protocol Losartan Potassium 25 mg 09/22/19 10:00 09/22/19 11:01 Cozaar - PO 25 mg DAILY IGGY Administration Metoprolol Succinate 100 mg 09/22/19 10:00 09/22/19 11:02 Toprol Xl - PO 100 mg DAILY IGGY Administration Pantoprazole Sodium 40 mg 09/22/19 07:00 09/22/19 07:03 Protonix - PO 40 mg ACBK IGGY Administration Silver Sulfadiazine 1 applic 09/22/19 13:30 Silvadene - TP DAILY IGGY Torsemide 60 mg 09/22/19 10:00 09/22/19 11:02 Demadex - PO 60 mg DAILY IGGY Administration Home Medications Medication Instructions Recorded Insulin (Novolog 70/30) [Novolog 60 units SQ BID 06/28/16 Mix 70/30 Flexpen -] Liraglutide [Victoza -] 1.8 mg SQ DAILY 06/07/17 Clopidogrel Bisulfate [Plavix] 75 mg PO DAILY 04/23/18 Icosapent Ethyl [Vascepa] 2 gm PO BID 07/03/18 Metoprolol Succinate [Toprol Xl] 100 mg PO DAILY 07/23/18 Aspirin Coated [Ecotrin -] 81 mg PO DAILY tablet.ec 02/20/19 Atorvastatin Ca [Lipitor] 40 mg PO HS tablet 02/20/19 Losartan Potassium [Cozaar -] 25 mg PO DAILY tablet 02/20/19 Pantoprazole Sodium [Protonix -] 40 mg PO DAILY tablet.ec 02/20/19 Torsemide [Demadex -] 60 mg PO DAILY tablet 02/20/19 Sodium Bicarbonate - 650 mg PO DAILY 03/15/19 Fluocinonide 0.05% Cream [Lidex 1 applic TP DAILY #1 tube 07/31/19 0.05% Cream -] Nitroglycerin 1 tab PO DAILY 07/31/19 Mupirocin Cream [Bactroban 2% 1 applic TP DAILY #1 tube 08/28/19 Cream -] CT head negative for acute pathology. EKG reveals incomplete RBB (noted on prior studies), sinus bradycardia, first degree block ASSESSMENT AND PLAN: Patient is a 64 year old male with history of coronary artery disease (s/p stents in 2008), diabetes mellitus (insulin dependent), CKD, hypetension, hyperlipidemia, osteomyelitis left foot, presents after syncopal episode. # Syncopal episode most likely due to having excessive insulin without food which might have caused hypoglycemia; BGMs, SS #Left Lower extremity cellulitis: ID on the case , on IV zosyn abd vanco renally dosed, open wounds on LEs m marylou pply silvadene with shawanda bandage # Hx of CAD: Continue home Aspirin, Clopidogrel, Atorvastatin. #Hx of hypertension: Continue home Metoprolol, Losartan #Hx of hyperlipidemia: Continue home Atorvastatin #CKD with baseline of 1.9 : Continue Torsemide DVT Px: Heparin 5000 units subq TID
--- NOTE | 2019-09-22 14:40 | CONS ---
DATE OF CONSULTATION: DATE OF DICTATION: 09/22/2019 The patient is a 64-year-old diabetic male who is evaluated for possible sepsis. The patient was admitted to the hospital on September 21, 2019, after a syncopal episode. He reports that he had awoken up from sleep and noted his blood sugar to be markedly elevated. He took insulin without eating. The patient has no recall for subsequent events. He had apparently been found on the floor by his family members. When EMS was summoned, they found his blood sugars to be in the 40s. He was taken to the emergency room, where he was further evaluated. The patient was noted to have superficial ulcerations present on the left lower extremity. He has been followed in the wound care center and also he has been followed by Dr. Ba for chronic venous stasis dermatitis and peripheral vascular disease. He had developed blisters on the left lower extremity, which have subsequently ruptured. He denies any purulent drainage. No associated fever or chills. Past medical history positive for diabetes mellitus, coronary artery disease, status post coronary artery stents, morbid obesity, congestive heart failure, hypertension, hyperlipidemia, peripheral vascular disease, chronic kidney disease. PAST SURGICAL HISTORY: Status post right transmetatarsal amputation, status post amputation of the left 5th toe. No known allergies. Medications include vancomycin, Zosyn, clindamycin, Plavix, heparin, Lipitor, Cozaar, Toprol, Ecotrin, Demadex, Protonix. SOCIAL HISTORY: He resides in the community. His last hospitalization was in March of 2019. He is a nonsmoker, nondrinker. SYSTEMS REVIEW: Neurologic: As per HPI. Cardiac: Negative chest pain or palpitations. Respiratory: Negative cough or sputum production. Gastrointestinal: Negative vomiting or diarrhea. Genitourinary: Negative for urinary tract infection. LABORATORY DATA: White count 9.7, hematocrit 41.0, platelet count 275. Creatinine 1.6. Cultures are pending. PHYSICAL EXAMINATION: General: The patient is out of bed to chair. He is in no acute distress. He is awake and alert. He is morbidly obese. Vital Signs: Temperature 98.3. Blood pressure 149/69. Pulse 78, regular. Respirations 17 per minute. Eyes: Sclerae anicteric. Heart Sounds: S1, S2. Lungs: Clear. Abdomen: Obese, soft, nontender. Lower Extremities: He is status post right transmetatarsal amputation. The foot does appear slightly hyperemic. On examination of the left lower extremity, there is hyperemia present from below the knee to the foot with 3 shallow-based ulcers corresponding to previous blisters, which have ruptured. IMPRESSION: 1. Status post syncope. 2. Symptomatic hypoglycemia. 3. Cellulitis of the lower extremity. 4. Rule out sepsis secondary to skin source. 5. Azotemia. 6. Diabetes mellitus. Await culture results. Empiric antibiotic coverage with vancomycin and Zosyn, adjusted for renal insufficiency. Continue local wound care. Further recommendations pending sepsis workup. Will follow. Thank you for your kind referral. KIM ANGEL M.D. [id number]
--- NOTE | 2019-09-22 15:27 | CONSULT ---
Consult Consult Specialty:: Nephrology Reason for Consultation:: CKD - History of Present Illness Chief Complaint: syncope History of Present Illness: Pt is a 64 year old male with pmhx of ckd, dm, htn, hld, and osteo of left foot who presents to the ER after a syncopal episode. He was found to have elevated branch operations specialist and I was called to evaluate him. He does have history of CKD and he follows with Dr Greco. His renal function is at baseline. He says that his branch operations specialist runs at about 1.8. He denies dysuria or hematuria. he denies shortness of breath. - History Source History Provided By: Patient - Past Medical History Cardio/Vascular: Yes: CAD, HTN, Hyperlipdemia Renal/: Yes: Renal Inusuff Musculoskeletal: Yes: Other (H/O osteomyelitis) Endocrine: Yes: Diabetes Mellitus - Past Surgical History Past Surgical History: Yes: Amputation - Alcohol/Substance Use Hx Alcohol Use: No History of Substance Use: reports: None - Smoking History Smoking history: Never smoked Have you smoked in the past 12 months: No Aproximately how many cigarettes per day: 10 If you are a former smoker, when did you quit?: 2016 - Social History ADL: Independent History of Recent Travel: No Home Medications - Allergies Allergies/Adverse Reactions: Allergies Allergy/AdvReac Type Severity Reaction Status Date / Time No Known Drug Allergies Allergy Verified 09/21/19 17:45 - Home Medications Home Medications: Ambulatory Orders Insulin (Novolog 70/30) [Novolog Mix 70/30 Flexpen -] 60 units SQ BID 06/28/16 Liraglutide [Victoza -] 1.8 mg SQ DAILY 06/07/17 Clopidogrel Bisulfate [Plavix] 75 mg PO DAILY 04/23/18 Icosapent Ethyl [Vascepa] 2 gm PO BID 07/03/18 Metoprolol Succinate [Toprol Xl] 100 mg PO DAILY 07/23/18 Aspirin Coated [Ecotrin -] 81 mg PO DAILY tablet.ec 02/20/19 Atorvastatin Ca [Lipitor] 40 mg PO HS tablet 02/20/19 Losartan Potassium [Cozaar -] 25 mg PO DAILY tablet 02/20/19 Pantoprazole Sodium [Protonix -] 40 mg PO DAILY tablet.ec 02/20/19 Torsemide [Demadex -] 60 mg PO DAILY tablet 02/20/19 Sodium Bicarbonate - 650 mg PO DAILY 03/15/19 Fluocinonide 0.05% Cream [Lidex 0.05% Cream -] 1 applic TP DAILY #1 tube 07/31/19 Nitroglycerin 1 tab PO DAILY 07/31/19 Mupirocin Cream [Bactroban 2% Cream -] 1 applic TP DAILY #1 tube 08/28/19 Family Medical History Family History: Denies Review of Systems - Review of Systems Constitutional: reports: Malaise Eyes: reports: No Symptoms HENT: reports: No Symptoms Neck: reports: No Symptoms Cardiovascular: reports: No Symptoms Respiratory: reports: No Symptoms Gastrointestinal: reports: No Symptoms Genitourinary: reports: No Symptoms Musculoskeletal: reports: No Symptoms Integumentary: reports: No Symptoms Neurological: reports: No Symptoms Endocrine: reports: No Symptoms Hematology/Lymphatic: reports: No Symptoms Physical Exam Vital Signs: Vital Signs Temperature 98.3 F 09/22/19 08:30 Pulse Rate 78 09/22/19 08:30 Respiratory Rate 17 09/22/19 08:30 Blood Pressure 149/69 09/22/19 08:30 O2 Sat by Pulse Oximetry (%) 96 09/22/19 08:30 Eyes: Yes: Conjunctiva Clear HENT: Yes: Atraumatic Cardiovascular: Yes: S1, S2 Respiratory: Yes: CTA Bilaterally Gastrointestinal: Yes: Soft Renal/: Yes: WNL Edema: No Integumentary: Yes: Bruising Wound/Incision: Yes: Open to air Neurological: Yes: Oriented Psychiatric: Yes: Agitated Labs: CBC, BMP 09/22/19 06:07 09/22/19 06:07 Imaging - Results Cat Scan: Report Reviewed Problem List - Problems (1) CKD (chronic kidney disease) Code(s): N18.9 - CHRONIC KIDNEY DISEASE, UNSPECIFIED (2) Cellulitis of left leg Code(s): L03.116 - CELLULITIS OF LEFT LOWER LIMB (3) Syncope Code(s): R55 - SYNCOPE AND COLLAPSE Assessment/Plan Current Medications Generic Name Dose Route Start Last Admin Trade Name Freq PRN Reason Stop Dose Admin Aspirin 81 mg 09/22/19 10:00 09/22/19 11:02 Ecotrin - PO 81 mg DAILY IGGY Administration Atorvastatin Calcium 40 mg 09/22/19 22:00 Lipitor - PO HS IGGY Clopidogrel Bisulfate 75 mg 09/22/19 10:00 09/22/19 11:02 Plavix - PO 75 mg DAILY IGGY Administration Heparin Sodium (Porcine) 5,000 unit 09/22/19 06:00 09/22/19 07:03 Heparin - SQ 5,000 unit TID IGGY Administration Piperacillin Sod/Tazobactam 50 mls @ 100 mls/hr 09/22/19 18:00 Sod 3.375 gm/ Dextrose IVPB Q8H-IV IGGY Protocol Vancomycin HCl 1,000 mg in 250 mls @ 200 mls/hr 09/22/19 23:00 Vancomycin (Pre-Docked) IVPB 09/23/19 22:59 Q24H IGGY Protocol Losartan Potassium 25 mg 09/22/19 10:00 09/22/19 11:01 Cozaar - PO 25 mg DAILY IGGY Administration Metoprolol Succinate 100 mg 09/22/19 10:00 09/22/19 11:02 Toprol Xl - PO 100 mg DAILY IGGY Administration Pantoprazole Sodium 40 mg 09/22/19 07:00 09/22/19 07:03 Protonix - PO 40 mg ACBK IGGY Administration Silver Sulfadiazine 1 applic 09/22/19 14:43 Silvadene - TP DAILY IGGY Torsemide 60 mg 09/22/19 10:00 09/22/19 11:02 Demadex - PO 60 mg DAILY IGGY Administration Laboratory Tests 04/12/19 04/19/19 04/26/19 12:08 11:25 11:15 Creatinine 1.5 H 1.8 H 1.7 H COVID-19 (BALTAZAR) 07/15/19 09/21/19 09/22/19 09:22 17:55 05:49 Creatinine 1.9 H 1.9 H COVID-19 (BALTAZAR) Pending 09/22/19 06:07 Creatinine 1.6 H COVID-19 (BALTAZAR) Impression 1. CKD 2. syncope 3. DM 4. HTN 5. HLD 6. CAD Plan - renal function at baseline - monitor bp - pt follow with Dr Greco, will call him tomorrow - check ua - avoid nsaids - avoid nephrotoxins - cont wound care - monitor vanco levels - renal dose meds
[2019-09-22] MEDS: VANCOMYCIN 1 GM in D5W (PRE-DOCKED) 1,000 MG/250 ML IVPB SCH (17:10)
[2019-09-22] MEDS ORDERED: DEXTROSE 5%-WATER - 50 ML IVPB ONE (17:51)
[2019-09-22] MEDS ORDERED: PIPERACILLIN/TAZOBACTAM 3.375 GM VIAL IVPB ONE (17:51)
[2019-09-22] MEDS: MINERAL OIL/PET HY-PHL TOPICAL OINTMENT 454 GM JAR TP SCH ×2 (17:58→22:08)
--- NOTE | 2019-09-22 18:13 | EKG ---
Test Reason : Blood Pressure : / mmHG Vent. Rate : 056 BPM Atrial Rate : 056 BPM P-R Int : 272 ms QRS Dur : 108 ms QT Int : 456 ms P-R-T Axes : 000 016 089 degrees QTc Int : 440 ms SINUS BRADYCARDIA WITH 1ST DEGREE A-V BLOCK LOW VOLTAGE QRS RIGHT BUNDLE BRANCH BLOCK NONSPECIFIC ST ABNORMALITY ABNORMAL ECG Confirmed by MD KEMP MOYSES ([id number]) on 09/22/2019 6:13:33 PM Referred By: Confirmed By:TABBY KEMP MD
[2019-09-22 19:35] VITALS: BMI 42.7
[2019-09-22 19:51] LABS: EPI CELLS 3 /uL (0-25.1); HYALINE CASTS 0 /uL (0-3.1); PH,URINE 5.5 (5.0-8.0); URINE APPEARANCE CLEAR; URINE BACTERIA 148 /uL (0-1359); URINE BILIRUBIN NEGATIVE (NEGATIVE); URINE COLOR YELLOW; URINE GLUCOSE (UA) NEGATIVE (NEGATIVE); URINE KETONE NEGATIVE (NEGATIVE); URINE LEUK ESTERASE NEGATIVE (NEGATIVE); URINE NITRITE NEGATIVE (NEGATIVE); URINE PROTEIN 3+ (NEGATIVE); URINE RBC 8 /uL (0-23.9); URINE UROBILINOGEN 0.2 mg/dL (0.2-1.0); URINE WBC 2 /uL (0-25.8)
[2019-09-22] MEDS: ATORVASTATIN CA 40 MG TABLET (FP) PO SCH (22:09)
[2019-09-22] MEDS: INSULIN SLIDING SCALE (NOVOLOG) 1 VIAL SQ SCH (22:11)
[2019-09-22] MEDS ORDERED: VANCOMYCIN 1 GRAM (PRE-DOCKED) 1,000 MG/250 ML BAG IVPB SCH (23:00)
[2019-09-23] MEDS ORDERED: PIPERACILLIN/TAZOBACTAM 3.375 GM VIAL IVPB ONE ×4 (01:52→18:14)
[2019-09-23] MEDS ORDERED: DEXTROSE 5%-WATER - 50 ML IVPB ONE ×4 (01:53→18:14)
[2019-09-23] MEDS: PIPERACILLIN/TAZOB 3.375 GM 3.375 GM in DEXTROSE 5%-WATER - 50 ML IVPB SCH ×3 (02:05→18:17)
[2019-09-23] MEDS: INSULIN SLIDING SCALE (NOVOLOG) 1 VIAL SQ SCH ×4 (06:00→22:00)
[2019-09-23] MEDS: HEPARIN NA (PORCINE) 5,000 UNITS/ML 1ML VIAL SQ SCH ×3 (06:00→21:56)
[2019-09-23] MEDS: PANTOPRAZOLE 40 MG TABLET PO SCH (06:01)
[2019-09-23 08:32] LABS: BASO % 0.6 % (0-2.0); EOS % 5.1 % (0-4.5); HEMATOCRIT 42.9 % (35.4-49); LYMPH % 17.4 % (8-40); MCH 24.6 pg (25.7-33.7); MCHC 32.8 g/dl (32.0-35.9); MEAN CELL VOLUME 75.1 fl (80-96); MEAN PLT VOLUME 8.9 fl (7.5-11.1); MONO % 6.1 % (3.8-10.2); NEUT % 70.8 % (42.8-82.8); PLATELET COUNT 263 K/MM3 (134-434); RBC 5.71 M/mm3 (4.00-5.60); RDW 18.5 % (11.9-15.9); WHITE BLOOD COUNT 8.2 K/mm3 (4.0-10.0)
[2019-09-23 08:51] LABS: ALBUMIN 3.2 g/dl (3.4-5.0); BILIRUBIN,TOTAL 1.6 mg/dL (0.2-1); BLOOD UREA NITROGEN 33.6 mg/dL (7-18); CREATININE 1.8 mg/dL (0.55-1.3); MAGNESIUM 2.3 mg/dL (1.8-2.4); PHOSPHOROUS 3.1 mg/dL (2.5-4.9); POTASSIUM 4.1 mmol/L (3.5-5.1); TOT PROT 7.2 g/dl (6.4-8.2)
[2019-09-23] MEDS: LOSARTAN POTASSIUM 25 MG TABLET PO SCH (11:03)
[2019-09-23] MEDS: ASPIRIN COATED 81 MG TABLET.EC PO SCH (11:04)
[2019-09-23] MEDS: TORSEMIDE 20 MG TABLET (FP) PO SCH (11:04)
[2019-09-23] MEDS: CLOPIDOGREL BISULFATE 75 MG TABLET (FP) PO SCH (11:04)
[2019-09-23] MEDS ORDERED: INSULIN (NOVOLOG) ASPART 100 UNITS/ML 10ML VIAL ONE (12:03)
--- NOTE | 2019-09-23 12:28 | ECHO ---
Name: RONN NARANJO R Exam:Adult Echocardiogram Study Date: 09/23/2019 11:22 AM Age: 64 yrs Reason For Study: SYNCOPE Height: 68 in Weight: 282 lb BSA: 2.4 m2 MMode/2D Measurements & Calculations RVDd: 3.4 cm Ao root diam: 3.0 cm IVSd: 0.94 cm LA dimension: 3.9 cm LVIDd: 5.5 cm ACS: 1.6 cm LVIDs: 4.2 cm LVPWd: 0.95 cm EDV(Teich): 149.5 ml LVOT diam: 2.2 cm ESV(Teich): 78.5 ml TAPSE: 2.2 cm RV S Gilbert: 10.2 cm/sec Doppler Measurements & Calculations MV E max gilbert: 128.3 cm/sec Ao V2 max: 135.7 cm/sec MV A max gilbert: 54.9 cm/sec Ao max P.4 mmHg MV E/A: 2.3 Ao V2 mean: 92.9 cm/sec MV dec time: 0.18 sec Ao mean P.8 mmHg Ao V2 VTI: 27.2 cm THOMAS(I,D): 2.9 cm2 THOMAS(V,D): 3.0 cm2 LV V1 max P.0 mmHg MR max gilbert: 474.1 cm/sec LV V1 mean P.5 mmHg MR max P.1 mmHg LV V1 max: 111.3 cm/sec LV V1 mean: 73.3 cm/sec LV V1 VTI: 21.4 cm SV(LVOT): 78.2 ml TR max gilbert: 233.5 cm/sec TR max P.3 mmHg PA V2 max: 116.7 cm/sec Med Peak E' Gilbert: 5.5 cm/sec PA max P.5 mmHg Med E/e': 23.5 Lat Peak E' Gilbert: 6.9 cm/sec Lat E/e': 18.5 Tech Comments TDS due to morbid obesity. Procedure A complete two-dimensional transthoracic echocardiogram was performed (2D, M-mode, Doppler and color flow Doppler). Technically limited study. Left Ventricle The left ventricle is normal in size. Regional wall motion could not be accurately assessed due to po or acoustic window and poor visualization fo endocardial border definition, however; it appears preserve d. Right Ventricle The right ventricle is not well visualized. Atria The left atrial size is normal. Right atrial size is normal. Mitral Valve There is mild mitral annular calcification. There is mild mitral regurgitation. Tricuspid Valve The tricuspid valve is normal in structure and function. No tricuspid regurgitation. Aortic Valve There is mild aortic sclerosis.;. No aortic regurgitation is present. Pulmonic Valve The pulmonic valve is not well visualized. Great Vessels The aortic root is normal size. Pericardium/Pleura There is no pericardial effusion. Interpretation Summary Technically limited study The left ventricle is normal in size. Regional wall motion could not be accurately assessed due to poor acoustic window and poor visualizat ion fo endocardial border definition, however; it appears preserved The left atrial size is normal. Right atrial size is normal. There is mild mitral annular calcification. There is mild mitral regurgitation. There is mild aortic sclerosis. LV diastology reveals pseudonormal pattern with elevated filling pressure Alfonso Chavarria MD 09/23/2019 12:28 PM
--- NOTE | 2019-09-23 13:23 | PN ---
Progress Note, Physician History of Present Illness: NO C/O LEG PAIN NO FEVER/ CHILLS BC NO GROWTH - Current Medication List Current Medications: Active Medications Aspirin (Ecotrin -) 81 mg PO DAILY [facility] Last Admin: 09/23/19 11:04 Dose: 81 mg Documented by: Atorvastatin Calcium (Lipitor -) 40 mg PO HS [facility] Last Admin: 09/22/19 22:09 Dose: 40 mg Documented by: Clopidogrel Bisulfate (Plavix -) 75 mg PO DAILY [facility] Last Admin: 09/23/19 11:04 Dose: 75 mg Documented by: Emollient Ointment (Aquaphor -) 1 applic TP BID [facility] Last Admin: 09/22/19 22:08 Dose: 1 applic Documented by: Heparin Sodium (Porcine) (Heparin -) 5,000 unit SQ TID [facility] Last Admin: 09/23/19 06:00 Dose: 5,000 unit Documented by: Piperacillin Sod/Tazobactam (Sod 3.375 gm/ Dextrose) 50 mls @ 100 mls/hr IVPB Q8H-IV IGGY; Protocol Last Admin: 09/23/19 11:03 Dose: 100 mls/hr Documented by: Vancomycin HCl (Vancomycin (Pre-Docked)) 1,000 mg in 250 mls @ 200 mls/hr IVPB Q24H IGGY; Protocol Stop: 09/23/19 22:59 Last Admin: 09/22/19 23:57 Dose: 200 mls/hr Documented by: Insulin Aspart (Novolog Vial Sliding Scale -) 1 vial SQ ACHS [facility]; Protocol Last Admin: 09/23/19 12:18 Dose: 2 units Documented by: Losartan Potassium (Cozaar -) 25 mg PO DAILY [facility] Last Admin: 09/23/19 11:03 Dose: 25 mg Documented by: Metoprolol Succinate (Toprol Xl -) 100 mg PO DAILY [facility] Last Admin: 09/23/19 11:04 Dose: 100 mg Documented by: Pantoprazole Sodium (Protonix -) 40 mg PO ACBK [facility] Last Admin: 09/23/19 06:01 Dose: 40 mg Documented by: Silver Sulfadiazine (Silvadene -) 1 applic TP DAILY [facility] Torsemide (Demadex -) 60 mg PO DAILY [facility] Last Admin: 09/23/19 11:04 Dose: 60 mg Documented by: - Objective Vital Signs: Vital Signs Temperature 98.6 F 09/23/19 05:00 Pulse Rate 69 09/23/19 05:00 Respiratory Rate 18 09/23/19 05:00 Blood Pressure 134/66 09/23/19 05:00 O2 Sat by Pulse Oximetry (%) 94 L 09/23/19 05:00 Constitutional: Yes: No Distress, Obese Cardiovascular: Yes: Regular Rate and Rhythm, S1, S2 Respiratory: Yes: CTA Bilaterally Gastrointestinal: Yes: Normal Bowel Sounds, Soft, Abdomen, Obese. No: Tenderness Extremities: Yes: Other (DECREASED ERYTHEMA/ WARMTH LE BILATERALLY SUPERFICIAL ULCERS L LE) Labs: CBC, BMP 09/23/19 07:10 09/23/19 07:10 INR, PTT INR 1.13 (0.83-1.09) H 09/21/19 17:55 Assessment/Plan CELLULITIS LE BILATERALLY IMPROVED R/O SEPSIS SECONDARY TO SKIN SOURCE SYMPTOMATIC HYPOGLYCEMIA S/P SYNCOPE DIABETES MELLITUS CONTINUE ZOSYN/ VANCOMYCIN
--- NOTE | 2019-09-23 15:06 | PN ---
Progress Note, Physician History of Present Illness: Pt seen and examined at bedside. He is awake and alert. He denies shortness of breath. - Current Medication List Current Medications: Active Medications Aspirin (Ecotrin -) 81 mg PO DAILY [facility] Last Admin: 09/23/19 11:04 Dose: 81 mg Documented by: Atorvastatin Calcium (Lipitor -) 40 mg PO HS [facility] Last Admin: 09/22/19 22:09 Dose: 40 mg Documented by: Clopidogrel Bisulfate (Plavix -) 75 mg PO DAILY [facility] Last Admin: 09/23/19 11:04 Dose: 75 mg Documented by: Emollient Ointment (Aquaphor -) 1 applic TP BID [facility] Last Admin: 09/22/19 22:08 Dose: 1 applic Documented by: Heparin Sodium (Porcine) (Heparin -) 5,000 unit SQ TID [facility] Last Admin: 09/23/19 06:00 Dose: 5,000 unit Documented by: Piperacillin Sod/Tazobactam (Sod 3.375 gm/ Dextrose) 50 mls @ 100 mls/hr IVPB Q8H-IV IGGY; Protocol Last Admin: 09/23/19 11:03 Dose: 100 mls/hr Documented by: Vancomycin HCl (Vancomycin (Pre-Docked)) 1,000 mg in 250 mls @ 200 mls/hr IVPB Q24H IGGY; Protocol Stop: 09/23/19 22:59 Last Admin: 09/22/19 23:57 Dose: 200 mls/hr Documented by: Insulin Aspart (Novolog Vial Sliding Scale -) 1 vial SQ ACHS [facility]; Protocol Last Admin: 09/23/19 12:18 Dose: 2 units Documented by: Losartan Potassium (Cozaar -) 25 mg PO DAILY [facility] Last Admin: 09/23/19 11:03 Dose: 25 mg Documented by: Metoprolol Succinate (Toprol Xl -) 100 mg PO DAILY [facility] Last Admin: 09/23/19 11:04 Dose: 100 mg Documented by: Pantoprazole Sodium (Protonix -) 40 mg PO ACBK [facility] Last Admin: 09/23/19 06:01 Dose: 40 mg Documented by: Silver Sulfadiazine (Silvadene -) 1 applic TP DAILY [facility] Torsemide (Demadex -) 60 mg PO DAILY [facility] Last Admin: 09/23/19 11:04 Dose: 60 mg Documented by: - Objective Vital Signs: Vital Signs Temperature 98.6 F 09/23/19 14:00 Pulse Rate 69 09/23/19 14:00 Respiratory Rate 18 09/23/19 14:00 Blood Pressure 141/85 09/23/19 14:00 O2 Sat by Pulse Oximetry (%) 96 09/23/19 14:00 Constitutional: Yes: Calm Eyes: Yes: Conjunctiva Clear HENT: Yes: Atraumatic Neck: Yes: Supple Cardiovascular: Yes: S1, S2 Respiratory: Yes: CTA Bilaterally Gastrointestinal: Yes: Normal Bowel Sounds, Soft Genitourinary: Yes: WNL Musculoskeletal: Yes: WNL Edema: No Neurological: Yes: Oriented Labs: CBC, BMP 09/23/19 07:10 09/23/19 07:10 INR, PTT INR 1.13 (0.83-1.09) H 09/21/19 17:55 Problem List - Problems (1) CKD (chronic kidney disease) Code(s): N18.9 - CHRONIC KIDNEY DISEASE, UNSPECIFIED (2) Cellulitis of left leg Code(s): L03.116 - CELLULITIS OF LEFT LOWER LIMB (3) Syncope Code(s): R55 - SYNCOPE AND COLLAPSE Assessment/Plan Current Medications Generic Name Dose Route Start Last Admin Trade Name Freq PRN Reason Stop Dose Admin Aspirin 81 mg 09/22/19 10:00 09/23/19 11:04 Ecotrin - PO 81 mg DAILY IGGY Administration Atorvastatin Calcium 40 mg 09/22/19 22:00 09/22/19 22:09 Lipitor - PO 40 mg HS IGGY Administration Clopidogrel Bisulfate 75 mg 09/22/19 10:00 09/23/19 11:04 Plavix - PO 75 mg DAILY IGGY Administration Emollient Ointment 1 applic 09/22/19 17:16 09/22/19 22:08 Aquaphor - TP 1 applic BID IGGY Administration Heparin Sodium (Porcine) 5,000 unit 09/22/19 06:00 09/23/19 06:00 Heparin - SQ 5,000 unit TID IGGY Administration Piperacillin Sod/Tazobactam 50 mls @ 100 mls/hr 09/22/19 18:00 09/23/19 11:03 Sod 3.375 gm/ Dextrose IVPB 100 mls/hr Q8H-IV IGGY Administration Protocol Vancomycin HCl 1,000 mg in 250 mls @ 200 mls/hr 09/22/19 23:00 09/22/19 23:57 Vancomycin (Pre-Docked) IVPB 09/23/19 22:59 200 mls/hr Q24H IGGY Administration Protocol Insulin Aspart 1 vial 09/22/19 22:00 09/23/19 12:18 Novolog Vial Sliding Scale - SQ 2 units ACHS IGGY Administration Protocol Losartan Potassium 25 mg 09/22/19 10:00 09/23/19 11:03 Cozaar - PO 25 mg DAILY IGGY Administration Metoprolol Succinate 100 mg 09/22/19 10:00 09/23/19 11:04 Toprol Xl - PO 100 mg DAILY IGGY Administration Pantoprazole Sodium 40 mg 09/22/19 07:00 09/23/19 06:01 Protonix - PO 40 mg ACBK IGGY Administration Silver Sulfadiazine 1 applic 09/22/19 14:43 Silvadene - TP DAILY I[facility] Torsemide 60 mg 09/22/19 10:00 09/23/19 11:04 Demadex - PO 60 mg DAILY IGGY Administration Impression 1. CKD 2. syncope 3. DM 4. HTN 5. HLD 6. CAD Plan - cont to monitor renal function - avoid nephrotoxins - renal dose home meds - renal function at baseline - monitor bp - avoid nsaids - cont wound care - monitor vanco levels
[2019-09-23] MEDS: SILVER SULFADIAZINE 1% TOP CREAM 50 GM JAR TP SCH (16:13)
[2019-09-23] MEDS: MINERAL OIL/PET HY-PHL TOPICAL OINTMENT 454 GM JAR TP SCH ×2 (16:13→22:03)
--- NOTE | 2019-09-23 17:11 | PN ---
Teaching Attending Note Name of Resident: Xuan Chow ATTENDING PHYSICIAN STATEMENT I saw and evaluated the patient. I reviewed the resident's note and discussed the case with the resident. I agree with the resident's findings and plan as documented. SUBJECTIVE: Patient is sitting on the bed with NAD, no fever or chills. OBJECTIVE: Vital Signs Temperature 98.6 F 09/23/19 14:00 Pulse Rate 69 09/23/19 14:00 Respiratory Rate 18 09/23/19 14:00 Blood Pressure 141/85 09/23/19 14:00 O2 Sat by Pulse Oximetry (%) 96 09/23/19 15:45 PE;per resident's note CBCD WBC 8.2 K/mm3 (4.0-10.0) 09/23/19 07:10 RBC 5.71 M/mm3 (4.00-5.60) H 09/23/19 07:10 Hgb 14.0 GM/dL (11.7-16.9) 09/23/19 07:10 Hct 42.9 % (35.4-49) 09/23/19 07:10 MCV 75.1 fl (80-96) L 09/23/19 07:10 MCHC 32.8 g/dl (32.0-35.9) 09/23/19 07:10 RDW 18.5 % (11.9-15.9) H 09/23/19 07:10 Plt Count 263 K/MM3 (134-434) 09/23/19 07:10 MPV 8.9 fl (7.5-11.1) 09/23/19 07:10 CMP Sodium 142 mmol/L (136-145) 09/23/19 07:10 Potassium 4.1 mmol/L (3.5-5.1) 09/23/19 07:10 Chloride 107 mmol/L (98-107) 09/23/19 07:10 Carbon Dioxide 23 mmol/L (21-32) 09/23/19 07:10 Anion Gap 12 MMOL/L (8-16) 09/23/19 07:10 BUN 33.6 mg/dL (7-18) H 09/23/19 07:10 Creatinine 1.8 mg/dL (0.55-1.3) H 09/23/19 07:10 Random Glucose 160 mg/dL (74-106) H 09/23/19 07:10 Calcium 9.0 mg/dL (8.5-10.1) 09/23/19 07:10 Total Bilirubin 1.6 mg/dL (0.2-1) H 09/23/19 07:10 AST 22 U/L (15-37) 09/23/19 07:10 ALT 18 U/L (13-61) 09/23/19 07:10 Alkaline Phosphatase 77 U/L (45-117) 09/23/19 07:10 Total Protein 7.2 g/dl (6.4-8.2) 09/23/19 07:10 Albumin 3.2 g/dl (3.4-5.0) L 09/23/19 07:10 CARDIAC ENZYMES Creatine Kinase 195 U/L (26-308) 09/21/19 17:55 Troponin I 0.05 ng/ml (0.00-0.05) 09/22/19 20:39 Current Medications Generic Name Dose Route Start Last Admin Trade Name Isabella PRN Reason Stop Dose Admin Aspirin 81 mg 09/22/19 10:00 09/23/19 11:04 Ecotrin - PO 81 mg DAILY IGGY Administration Atorvastatin Calcium 40 mg 09/22/19 22:00 09/22/19 22:09 Lipitor - PO 40 mg HS IGGY Administration Clopidogrel Bisulfate 75 mg 09/22/19 10:00 09/23/19 11:04 Plavix - PO 75 mg DAILY IGGY Administration Emollient Ointment 1 applic 09/22/19 17:16 09/23/19 16:13 Aquaphor - TP 1 applic BID IGGY Administration Heparin Sodium (Porcine) 5,000 unit 09/22/19 06:00 09/23/19 16:12 Heparin - SQ 5,000 unit TID IGGY Administration Piperacillin Sod/Tazobactam 50 mls @ 100 mls/hr 09/22/19 18:00 09/23/19 11:03 Sod 3.375 gm/ Dextrose IVPB 100 mls/hr Q8H-IV IGGY Administration Protocol Vancomycin HCl 1,000 mg in 250 mls @ 200 mls/hr 09/22/19 23:00 09/22/19 23:57 Vancomycin (Pre-Docked) IVPB 09/23/19 22:59 200 mls/hr Q24H IGGY Administration Protocol Insulin Aspart 1 vial 09/22/19 22:00 09/23/19 12:18 Novolog Vial Sliding Scale - SQ 2 units ACHS IGGY Administration Protocol Losartan Potassium 25 mg 09/22/19 10:00 09/23/19 11:03 Cozaar - PO 25 mg DAILY IGGY Administration Metoprolol Succinate 100 mg 09/22/19 10:00 09/23/19 11:04 Toprol Xl - PO 100 mg DAILY IGGY Administration Pantoprazole Sodium 40 mg 09/22/19 07:00 09/23/19 06:01 Protonix - PO 40 mg ACBK IGGY Administration Silver Sulfadiazine 1 applic 09/22/19 14:43 09/23/19 16:13 Silvadene - TP 1 applic DAILY IGGY Administration Torsemide 60 mg 09/22/19 10:00 09/23/19 11:04 Demadex - PO 60 mg DAILY IGGY Administration Home Medications Medication Instructions Recorded Insulin (Novolog 70/30) [Novolog 60 units SQ BID 06/28/16 Mix 70/30 Flexpen -] Clopidogrel Bisulfate [Plavix] 75 mg PO DAILY 04/23/18 Metoprolol Succinate [Toprol Xl] 100 mg PO DAILY 07/23/18 Aspirin Coated [Ecotrin -] 81 mg PO DAILY tablet.ec 02/20/19 Atorvastatin Ca [Lipitor] 40 mg PO HS tablet 02/20/19 Losartan Potassium [Cozaar -] 25 mg PO DAILY tablet 02/20/19 Sodium Bicarbonate - 650 mg PO DAILY 03/15/19 Nitroglycerin 1 tab PO DAILY 07/31/19 Mupirocin Cream [Bactroban 2% 1 applic TP DAILY #1 tube 08/28/19 Cream -] Insulin Aspart [Novolog] 0 unit SQ ACHS 09/22/19 Torsemide [Demadex] 80 mg PO DAILY 09/22/19 Microbiology 09/21/19 06:07 Blood - Peripheral Venous Blood Culture - Preliminary NO GROWTH OBTAINED AFTER 24 HOURS, INCUBATION TO CONTINUE FOR 4 DAYS. 09/21/19 06:12 Blood - Peripheral Venous Blood Culture - Preliminary NO GROWTH OBTAINED AFTER 24 HOURS, INCUBATION TO CONTINUE FOR [address] head negative for acute pathology. EKG reveals incomplete RBB (noted on prior studies), sinus bradycardia, first degree block ASSESSMENT AND PLAN: Patient is a 64 year old male with history of coronary artery disease (s/p stents in 2008), diabetes mellitus (insulin dependent), CKD, hypetension, hyperlipidemia, osteomyelitis left foot, presents after syncopal episode. # Syncopal episode most likely due to having excessive insulin without food which might have caused hypoglycemia; BGMs, SS #Left Lower extremity cellulitis: ID on the case , on IV zosyn abd vanco renally dosed, open wounds on LEs will apply silvadene with shawanda bandage , Bld cx is negative so far # Hx of CAD: Continue home Aspirin, Clopidogrel, Atorvastatin. #Hx of hypertension: Continue home Metoprolol, Losartan #Hx of hyperlipidemia: Continue home Atorvastatin #CKD with baseline of 1.9 : Continue Torsemide DVT Px: Heparin 5000 units subq TID follow with ID for further instructions and possible dc on po meds
--- NOTE | 2019-09-23 17:24 | PN ---
Physical Exam: SUBJECTIVE: Patient seen and examined, was lying comfortably in bed on NC - explained that at home he normally sleeps upright in a chair, so when he's in the hospital bed he needs the NC or Bipap. Has a bipap machine at home too. He feels well otherwise, denies NVD, dizziness, SOB, CP. Denies issues with defecation and urination. OBJECTIVE: Vital Signs Period Temp Pulse Resp BP Sys/Peter Pulse Ox Last 24 Hr 97.5 F-98.6 F 69-76 18-20 128-141/58-90 94-97 GENERAL: male, appears stated age, morbidly obese, AAOx3, in no acute distress HEAD: Normal with no signs of trauma LUNGS: CTAB, some wheezing was appreciated on initial deep breath but not repeated HEART: distant heart sounds, difficult to appreciate likely due to body habitus ABDOMEN: sevrely distended/obese, semi-solid, nontender to palpation, active bowel sounds EXTREMITIES: radial pulses palpable but unable to assess dorsalis pedis pulses, R foot s/p transmetatarsal amputation, R foot 5th toe amputated, R lower leg has scabs from braces and L lower leg has scabs from previous fall NEUROLOGICAL: Cranial nerves II through XII grossly intact, Normal speech, PSYCH: Normal mood, antagonistic affect SKIN: Warm, no other rashes or lesions noted Laboratory Results - last 24 hr 09/22/19 09/22/19 09/22/19 05:49 19:00 19:07 WBC RBC Hgb Hct MCV MCH MCHC RDW Plt Count MPV Absolute Neuts (auto) Neutrophils % Lymphocytes % Monocytes % Eosinophils % Basophils % Nucleated RBC % Sodium Potassium Chloride Carbon Dioxide Anion Gap BUN Creatinine Est GFR (CKD-EPI)AfAm Est GFR (CKD-EPI)NonAf POC Glucometer 271 Random Glucose Calcium Phosphorus Magnesium Total Bilirubin AST ALT Alkaline Phosphatase Troponin I Total Protein Albumin Urine Color Yellow Urine Appearance Clear Urine pH 5.5 Ur Specific [place] 1.010 Urine Protein 3+ H Urine Glucose (UA) Negative Urine Ketones Negative Urine Blood 1+ H Urine Nitrite Negative Urine Bilirubin Negative Urine Urobilinogen 0.2 Ur Leukocyte Esterase Negative Urine WBC (Auto) 2 Urine RBC (Auto) 8 Urine Casts (Auto) 0 U Epithel Cells (Auto) 3 Urine Bacteria (Auto) 148 COVID-19 (BALTAZAR) Not detected 09/22/19 09/22/19 09/23/19 20:39 22:10 05:56 WBC RBC Hgb Hct MCV MCH MCHC RDW Plt Count MPV Absolute Neuts (auto) Neutrophils % Lymphocytes % Monocytes % Eosinophils % Basophils % Nucleated RBC % Sodium Potassium Chloride Carbon Dioxide Anion Gap BUN Creatinine Est GFR (CKD-EPI)AfAm Est GFR (CKD-EPI)NonAf POC Glucometer 230 167 Random Glucose Calcium Phosphorus Magnesium Total Bilirubin AST ALT Alkaline Phosphatase Troponin I 0.05 Total Protein Albumin Urine Color Urine Appearance Urine pH Ur Specific [place] Urine Protein Urine Glucose (UA) Urine Ketones Urine Blood Urine Nitrite Urine Bilirubin Urine Urobilinogen Ur Leukocyte Esterase Urine WBC (Auto) Urine RBC (Auto) Urine Casts (Auto) U Epithel Cells (Auto) Urine Bacteria (Auto) COVID-19 (BALTAZAR) 09/23/19 09/23/19 09/23/19 07:10 07:10 11:05 WBC 8.2 RBC 5.71 H Hgb 14.0 Hct 42.9 MCV 75.1 L MCH 24.6 L MCHC 32.8 RDW 18.5 H Plt Count 263 MPV 8.9 Absolute Neuts (auto) 5.8 Neutrophils % 70.8 D Lymphocytes % 17.4 D Monocytes % 6.1 Eosinophils % 5.1 H D Basophils % 0.6 Nucleated RBC % 0 Sodium 142 Potassium 4.1 Chloride 107 Carbon Dioxide 23 Anion Gap 12 BUN 33.6 H Creatinine 1.8 H Est GFR (CKD-EPI)AfAm 45.73 Est GFR (CKD-EPI)NonAf 39.46 POC Glucometer 190 Random Glucose 160 H Calcium 9.0 Phosphorus 3.1 Magnesium 2.3 Total Bilirubin 1.6 H AST 22 ALT 18 Alkaline Phosphatase 77 Troponin I Total Protein 7.2 Albumin 3.2 L Urine Color Urine Appearance Urine pH Ur Specific [place] Urine Protein Urine Glucose (UA) Urine Ketones Urine Blood Urine Nitrite Urine Bilirubin Urine Urobilinogen Ur Leukocyte Esterase Urine WBC (Auto) Urine RBC (Auto) Urine Casts (Auto) U Epithel Cells (Auto) Urine Bacteria (Auto) COVID-19 (BALTAZAR) Active Medications Generic Name Dose Route Start Last Admin Trade Name Freq PRN Reason Stop Dose Admin Aspirin 81 mg 09/22/19 10:00 09/23/19 11:04 Ecotrin - PO 81 mg DAILY IGGY Administration Atorvastatin Calcium 40 mg 09/22/19 22:00 09/22/19 22:09 Lipitor - PO 40 mg HS IGGY Administration Clopidogrel Bisulfate 75 mg 09/22/19 10:00 09/23/19 11:04 Plavix - PO 75 mg DAILY IGGY Administration Emollient Ointment 1 applic 09/22/19 17:16 09/23/19 16:13 Aquaphor - TP 1 applic BID IGGY Administration Heparin Sodium (Porcine) 5,000 unit 09/22/19 06:00 09/23/19 16:12 Heparin - SQ 5,000 unit TID IGGY Administration Piperacillin Sod/Tazobactam 50 mls @ 100 mls/hr 09/22/19 18:00 09/23/19 11:03 Sod 3.375 gm/ Dextrose IVPB 100 mls/hr Q8H-IV IGGY Administration Protocol Vancomycin HCl 1,000 mg in 250 mls @ 200 mls/hr 09/22/19 23:00 09/22/19 23:57 Vancomycin (Pre-Docked) IVPB 09/23/19 22:59 200 mls/hr Q24H IGGY Administration Protocol Insulin Aspart 1 vial 09/22/19 22:00 09/23/19 12:18 Novolog Vial Sliding Scale - SQ 2 units ACHS IGGY Administration Protocol Losartan Potassium 25 mg 09/22/19 10:00 09/23/19 11:03 Cozaar - PO 25 mg DAILY IGGY Administration Metoprolol Succinate 100 mg 09/22/19 10:00 09/23/19 11:04 Toprol Xl - PO 100 mg DAILY IGGY Administration Pantoprazole Sodium 40 mg 09/22/19 07:00 09/23/19 06:01 Protonix - PO 40 mg ACBK IGGY Administration Silver Sulfadiazine 1 applic 09/22/19 14:43 09/23/19 16:13 Silvadene - TP 1 applic DAILY IGGY Administration Torsemide 60 mg 09/22/19 10:00 09/23/19 11:04 Demadex - PO 60 mg DAILY IGGY Administration ASSESSMENT/PLAN: 64yo M with PMHx of CAD s/p stents (2008), IDDM, CKD, HTN, HLD, osteomyelitis of L foot, R transmetatarsal and L 5th toe amputation presented on 09/21/19 with a syncopal episode in setting of hypoglycemia and LE cellulitis. Initial work up was remarkable for leukocytosis 11.4, Cr 1.9, glucose 57, trop 0.02 (repeat trop 0.05 on 09/22/19), BNP 1093.5, and 3+ protein on UA. EKG showed sinus bradycardia with 1st degree AV block and RBBB. Following imaging were all unremarkable: Head CT, CXR, LLE XR, and carotid doppler. Patient was admitted for further evaluation of a syncopal episode in setting of leukocytosis, hypoglycemia, and LE cellulitis. COVID negative. #syncope likely due to hypoglycemia possibly 2/2 to medication error (vs. bradyardia - less likely) BG improved quickly Echo 09/23/2019 was relatively unremarkable, of poor quality due to poor acoustic window. Increased LV filling pressures - continue BGMs and ISS for glycemic control - consider cardio f/u after d/c - endocrinology consulted - appreciate recs #LE cellulitis blood cultures showing NGTD wounds appear improved patient has history of cultures showing MRSA, proteus, enterococcus - ID consulted - appreciate recs: continue renally dosed vanc/sozyn - urine cultures pending - wound care: silvadene with shawanda bandages - vanc trough ordered #CAD s/p stents - continue home ASA, clopidogrel #CKD 3a renal & bladder US 09/22/2019: unremarkable -nephrology consulted: avoid nephrotoxins and nsaids, renally dosed meds -continue torsemide 60 #HTN -continue home losartan and metoprolol #HLD -continue home atorvastatin #PPX - DVT: heparin - GI: pantoprazole #FEN - no standing fluids - replete lytes PRN - diabetic diet #Dispo - continue monitoring in medSur FULL CODE Visit type - Emergency Visit Emergency Visit: Yes ED Registration Date: 09/21/19 Care time: The patient presented to the Emergency Department on the above date and was hospitalized for further evaluation of their emergent condition. - New Patient This patient is new to me today: Yes Date on this admission: 09/23/19 - Critical Care Critical Care patient: No ATTENDING PHYSICIAN STATEMENT I saw and evaluated the patient. I reviewed the resident's note and discussed the case with the resident. I agree with the resident's findings and plan as documented. SUBJECTIVE: OBJECTIVE: ASSESSMENT AND PLAN:
[2019-09-23] MEDS: ATORVASTATIN CA 40 MG TABLET (FP) PO SCH (21:57)
[2019-09-24] MEDS ORDERED: PIPERACILLIN/TAZOBACTAM 3.375 GM VIAL IVPB ONE ×2 (01:53→09:48)
[2019-09-24] MEDS ORDERED: DEXTROSE 5%-WATER - 50 ML IVPB ONE ×2 (01:54→09:48)
[2019-09-24] MEDS: PIPERACILLIN/TAZOB 3.375 GM 3.375 GM in DEXTROSE 5%-WATER - 50 ML IVPB SCH ×2 (02:07→09:52)
[2019-09-24] MEDS: HEPARIN NA (PORCINE) 5,000 UNITS/ML 1ML VIAL SQ SCH ×2 (06:28→14:20)
[2019-09-24] MEDS: PANTOPRAZOLE 40 MG TABLET PO SCH (06:29)
[2019-09-24] MEDS: INSULIN SLIDING SCALE (NOVOLOG) 1 VIAL SQ SCH ×3 (06:31→17:20)
[2019-09-24] MEDS ORDERED: INSULIN (LEVEMIR) 100 UNITS/ML UNITS SQ ONE (07:02)
[2019-09-24 07:50] LABS: BASO % 0.6 % (0-2.0); EOS % 5.8 % (0-4.5); HEMATOCRIT 41.2 % (35.4-49); HEMOGLOBIN 13.4 GM/dL (11.7-16.9); LYMPH % 17.8 % (8-40); MCH 24.4 pg (25.7-33.7); MCHC 32.5 g/dl (32.0-35.9); MEAN PLT VOLUME 8.8 fl (7.5-11.1); NEUT % 68.8 % (42.8-82.8); PLATELET COUNT 240 K/MM3 (134-434); RBC 5.49 M/mm3 (4.00-5.60); RDW 18.6 % (11.9-15.9); WHITE BLOOD COUNT 7.4 K/mm3 (4.0-10.0)
[2019-09-24 08:23] LABS: ALBUMIN 3.1 g/dl (3.4-5.0); BILIRUBIN,TOTAL 1.2 mg/dL (0.2-1); BLOOD UREA NITROGEN 36.4 mg/dL (7-18); CALCIUM 8.8 mg/dL (8.5-10.1); CREATININE 1.9 mg/dL (0.55-1.3); MAGNESIUM 2.3 mg/dL (1.8-2.4); PHOSPHOROUS 3.4 mg/dL (2.5-4.9)
[2019-09-24] MEDS: TORSEMIDE 20 MG TABLET (FP) PO SCH (09:50)
[2019-09-24] MEDS: LOSARTAN POTASSIUM 25 MG TABLET PO SCH (09:50)
[2019-09-24] MEDS: CLOPIDOGREL BISULFATE 75 MG TABLET (FP) PO SCH (09:51)
[2019-09-24] MEDS: SILVER SULFADIAZINE 1% TOP CREAM 50 GM JAR TP SCH (09:51)
[2019-09-24] MEDS: MINERAL OIL/PET HY-PHL TOPICAL OINTMENT 454 GM JAR TP SCH (09:51)
[2019-09-24] MEDS: ASPIRIN COATED 81 MG TABLET.EC PO SCH (09:51)
--- NOTE | 2019-09-24 14:31 | PN ---
Progress Note, Physician History of Present Illness: NO C/O LEG PAIN NO FEVER/ CHILLS BC NO GROWTH - Current Medication List Current Medications: Active Medications Aspirin (Ecotrin -) 81 mg PO DAILY [facility] Last Admin: 09/24/19 09:51 Dose: 81 mg Documented by: Atorvastatin Calcium (Lipitor -) 40 mg PO HS [facility] Last Admin: 09/23/19 21:57 Dose: 40 mg Documented by: Clopidogrel Bisulfate (Plavix -) 75 mg PO DAILY [facility] Last Admin: 09/24/19 09:51 Dose: 75 mg Documented by: Emollient Ointment (Aquaphor -) 1 applic TP BID [facility] Last Admin: 09/24/19 09:51 Dose: 1 applic Documented by: Heparin Sodium (Porcine) (Heparin -) 5,000 unit SQ TID [facility] Last Admin: 09/24/19 14:20 Dose: 5,000 unit Documented by: Piperacillin Sod/Tazobactam (Sod 3.375 gm/ Dextrose) 50 mls @ 100 mls/hr IVPB Q8H-IV [facility]; Protocol Last Admin: 09/24/19 09:52 Dose: 100 mls/hr Documented by: Insulin Aspart (Novolog Vial Sliding Scale -) 1 vial SQ ACHS [facility]; Protocol Last Admin: 09/24/19 11:00 Dose: 2 units Documented by: Losartan Potassium (Cozaar -) 25 mg PO DAILY [facility] Last Admin: 09/24/19 09:50 Dose: 25 mg Documented by: Metoprolol Succinate (Toprol Xl -) 100 mg PO DAILY [facility] Last Admin: 09/24/19 09:50 Dose: 100 mg Documented by: Pantoprazole Sodium (Protonix -) 40 mg PO ACBK [facility] Last Admin: 09/24/19 06:29 Dose: 40 mg Documented by: Silver Sulfadiazine (Silvadene -) 1 applic TP DAILY [facility] Last Admin: 09/24/19 09:51 Dose: 1 applic Documented by: Torsemide (Demadex -) 60 mg PO DAILY [facility] Last Admin: 09/24/19 09:50 Dose: 60 mg Documented by: - Objective Vital Signs: Vital Signs Temperature 97.9 F 09/24/19 06:00 Pulse Rate 60 09/24/19 06:00 Respiratory Rate 20 09/24/19 10:00 Blood Pressure 135/82 09/24/19 06:00 O2 Sat by Pulse Oximetry (%) 96 09/24/19 10:00 Constitutional: Yes: No Distress Cardiovascular: Yes: Regular Rate and Rhythm, S1, S2 Respiratory: Yes: CTA Bilaterally Gastrointestinal: Yes: Normal Bowel Sounds, Soft, Abdomen, Obese. No: Tenderness Extremities: Yes: Other (decreased erythema LE bilaterally + superficial ulcers L pretibial area) Labs: CBC, BMP 09/24/19 06:45 09/24/19 06:45 INR, PTT INR 1.13 (0.83-1.09) H 09/21/19 17:55 Assessment/Plan CELLULITIS LE BILATERALLY IMPROVED R/O SEPSIS SECONDARY TO SKIN SOURCE SYMPTOMATIC HYPOGLYCEMIA S/P SYNCOPE DIABETES MELLITUS DISCONTINUE ZOSYN LEVAQUIN 250MG PO QD X 7D F/U [facility]
--- NOTE | 2019-09-24 14:49 | PN ---
Progress Note, Physician History of Present Illness: Pt seen and examined at bedside. He is awake and alert. he denies fevers or chills. - Current Medication List Current Medications: Active Medications Aspirin (Ecotrin -) 81 mg PO DAILY [facility] Last Admin: 09/24/19 09:51 Dose: 81 mg Documented by: Atorvastatin Calcium (Lipitor -) 40 mg PO HS [facility] Last Admin: 09/23/19 21:57 Dose: 40 mg Documented by: Clopidogrel Bisulfate (Plavix -) 75 mg PO DAILY [facility] Last Admin: 09/24/19 09:51 Dose: 75 mg Documented by: Emollient Ointment (Aquaphor -) 1 applic TP BID [facility] Last Admin: 09/24/19 09:51 Dose: 1 applic Documented by: Heparin Sodium (Porcine) (Heparin -) 5,000 unit SQ TID [facility] Last Admin: 09/24/19 14:20 Dose: 5,000 unit Documented by: Insulin Aspart (Novolog Vial Sliding Scale -) 1 vial SQ ACHS [facility]; Protocol Last Admin: 09/24/19 11:00 Dose: 2 units Documented by: Levofloxacin (Levaquin -) 250 mg PO DAILY [facility] Losartan Potassium (Cozaar -) 25 mg PO DAILY [facility] Last Admin: 09/24/19 09:50 Dose: 25 mg Documented by: Metoprolol Succinate (Toprol Xl -) 100 mg PO DAILY [facility] Last Admin: 09/24/19 09:50 Dose: 100 mg Documented by: Pantoprazole Sodium (Protonix -) 40 mg PO ACBK [facility] Last Admin: 09/24/19 06:29 Dose: 40 mg Documented by: Silver Sulfadiazine (Silvadene -) 1 applic TP DAILY [facility] Last Admin: 09/24/19 09:51 Dose: 1 applic Documented by: Torsemide (Demadex -) 60 mg PO DAILY [facility] Last Admin: 09/24/19 09:50 Dose: 60 mg Documented by: - Objective Vital Signs: Vital Signs Temperature 97.9 F 09/24/19 06:00 Pulse Rate 60 09/24/19 06:00 Respiratory Rate 20 09/24/19 10:00 Blood Pressure 135/82 09/24/19 06:00 O2 Sat by Pulse Oximetry (%) 96 09/24/19 10:00 Constitutional: Yes: Calm Eyes: Yes: Conjunctiva Clear HENT: Yes: Atraumatic Neck: Yes: Supple Cardiovascular: Yes: S1, S2 Respiratory: Yes: CTA Bilaterally Gastrointestinal: Yes: Normal Bowel Sounds, Soft Genitourinary: Yes: WNL Musculoskeletal: Yes: WNL Edema: No Neurological: Yes: Oriented Psychiatric: Yes: Oriented Labs: CBC, BMP 09/24/19 06:45 09/24/19 06:45 INR, PTT INR 1.13 (0.83-1.09) H 09/21/19 17:55 Problem List - Problems (1) CKD (chronic kidney disease) Code(s): N18.9 - CHRONIC KIDNEY DISEASE, UNSPECIFIED (2) Cellulitis of left leg Code(s): L03.116 - CELLULITIS OF LEFT LOWER LIMB (3) Syncope Code(s): R55 - SYNCOPE AND COLLAPSE Assessment/Plan Current Medications Generic Name Dose Route Start Last Admin Trade Name Freq PRN Reason Stop Dose Admin Aspirin 81 mg 09/22/19 10:00 09/24/19 09:51 Ecotrin - PO 81 mg DAILY IGGY Administration Atorvastatin Calcium 40 mg 09/22/19 22:00 09/23/19 21:57 Lipitor - PO 40 mg HS IGGY Administration Clopidogrel Bisulfate 75 mg 09/22/19 10:00 09/24/19 09:51 Plavix - PO 75 mg DAILY IGGY Administration Emollient Ointment 1 applic 09/22/19 17:16 09/24/19 09:51 Aquaphor - TP 1 applic BID IGGY Administration Heparin Sodium (Porcine) 5,000 unit 09/22/19 06:00 09/24/19 14:20 Heparin - SQ 5,000 unit TID IGGY Administration Insulin Aspart 1 vial 09/22/19 22:00 09/24/19 11:00 Novolog Vial Sliding Scale - SQ 2 units ACHS IGGY Administration Protocol Levofloxacin 250 mg 09/24/19 14:45 Levaquin - PO DAILY IGGY Losartan Potassium 25 mg 09/22/19 10:00 09/24/19 09:50 Cozaar - PO 25 mg DAILY IGGY Administration Metoprolol Succinate 100 mg 09/22/19 10:00 09/24/19 09:50 Toprol Xl - PO 100 mg DAILY IGGY Administration Pantoprazole Sodium 40 mg 09/22/19 07:00 09/24/19 06:29 Protonix - PO 40 mg ACBK IGGY Administration Silver Sulfadiazine 1 applic 09/22/19 14:43 09/24/19 09:51 Silvadene - TP 1 applic DAILY IGGY Administration Torsemide 60 mg 09/22/19 10:00 09/24/19 09:50 Demadex - PO 60 mg DAILY IGGY Administration Impression 1. CKD 2. syncope 3. DM 4. HTN 5. HLD 6. 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
[2019-09-24 16:04] VITALS: BP 152/75; PULSE 65; TEMP 98.1
--- NOTE | 2019-09-24 17:41 | PN ---
Teaching Attending Note Name of Resident: Saad Denny ATTENDING PHYSICIAN STATEMENT I saw and evaluated the patient. I reviewed the resident's note and discussed the case with the resident. I agree with the resident's findings and plan as documented. SUBJECTIVE: No fever or chills. no pain i nfeelt . has his chronic SOB. uses BIPAP every ni ght . denies O2 use at home . he says his wounds and legs look better and reprots chronci erythema and swelling . now legs and feet look at base line OBJECTIVE: NAD, flat affect, avoids eye contact , comfortable in bed CV: RRR Lungs: CTAB , decreased breath sounds at bases Ext: L leg with superficial abrasions , with surrounding erythema, minimal increased warmth. L dorsal foot with erythema and edema . R lateral leg ulcer with no discharge, . R transmetatarsal ambputation .. L foot with lateral scar and s/p 5th toe amputation . no discharge frm any of the wounds A/P 64 y/o man with h/o peripheral vascular disease, CAD status post stents, CKD, hypertension, dyslipidemia, peripheral neuropathy, diabetes mellitus type 2, status post R Foot TMA in 2016, s/p L 5th toew amputation who presented with syncope . 1- Syncope due to hypoglycemia 2- b/l cellulitis with chronic wounds 3- H/o DM 4- H/o PVD 5- h/o CKD plan : - d/w ID, switch to oral Abx - cont f/u at wound care center. - I offered a VNS but patient refused - cont his mixed insulin at lower doses 30 BId instead of 60 BID and cont SSI . further instructions about insulin to be given by PCP - cont asa and plavix at dc - Cr at base line - cont HTN meds dispo : dc home . denies need for assistance with walking . denies VNS. Sat O2 off O2 is 94 %
--- NOTE | 2019-09-24 18:10 | DS ---
Physical Exam: SUBJECTIVE: Patient seen and examined, is feeling his normal self. Said that he takes care of his wounds himself at home. Reiterated that he is certain his syncopal episode took place due to him taking a large amount of insulin without eating any food thereafter. Feel ready to go home. He was sitting at the edge of his bed comfortably on RA, he explained that he only uses the NC when he lies down. OBJECTIVE: Vital Signs Period Temp Pulse Resp BP Sys/Peter Pulse Ox Last 24 Hr 97.9 F-98.3 F 60-65 20-20 122-152/74-82 94-98 PHYSICAL EXAM GENERAL: male, appears stated age, morbidly obese, AAOx3, in no acute distress HEAD: Normal with no signs of trauma LUNGS: CTAB, some wheezing was appreciated on initial deep breath but not repeated HEART: distant heart sounds, difficult to appreciate likely due to body habitus ABDOMEN: sevrely distended/obese, semi-solid, nontender to palpation, active bowel sounds EXTREMITIES: radial pulses palpable but unable to assess dorsalis pedis pulses, R foot s/p transmetatarsal amputation, R foot 5th toe amputated, R lower leg has scabs from braces and L lower leg has scabs from previous fall NEUROLOGICAL: Cranial nerves II through XII grossly intact, Normal speech, PSYCH: Normal mood, antagonistic affect SKIN: Warm, no other rashes or lesions noted LABS Laboratory Results - last 24 hr 09/23/19 09/23/19 09/24/19 21:55 22:45 06:01 WBC RBC Hgb Hct MCV MCH MCHC RDW Plt Count MPV Absolute Neuts (auto) Neutrophils % Lymphocytes % Monocytes % Eosinophils % Basophils % Nucleated RBC % Sodium Potassium Chloride Carbon Dioxide Anion Gap BUN Creatinine Est GFR (CKD-EPI)AfAm Est GFR (CKD-EPI)NonAf POC Glucometer 236 211 Random Glucose Calcium Phosphorus Magnesium Total Bilirubin AST ALT Alkaline Phosphatase Total Protein Albumin Vancomycin Pre-Dose 6.7 09/24/19 09/24/19 09/24/19 06:45 06:45 10:59 WBC 7.4 RBC 5.49 Hgb 13.4 Hct 41.2 MCV 75.0 L MCH 24.4 L MCHC 32.5 RDW 18.6 H Plt Count 240 MPV 8.8 Absolute Neuts (auto) 5.1 Neutrophils % 68.8 Lymphocytes % 17.8 Monocytes % 7.0 Eosinophils % 5.8 H Basophils % 0.6 Nucleated RBC % 0 Sodium 141 Potassium 4.0 Chloride 106 Carbon Dioxide 25 Anion Gap 10 BUN 36.4 H Creatinine 1.9 H Est GFR (CKD-EPI)AfAm 42.84 Est GFR (CKD-EPI)NonAf 36.96 POC Glucometer 205 Random Glucose 202 H Calcium 8.8 Phosphorus 3.4 Magnesium 2.3 Total Bilirubin 1.2 H AST 16 ALT 19 Alkaline Phosphatase 70 Total Protein 7.0 Albumin 3.1 L Vancomycin Pre-Dose HOSPITAL COURSE: 64yo M with PMHx of CAD s/p stents (2008), IDDM, CKD, HTN, HLD, osteomyelitis of L foot, R transmetatarsal and L 5th toe amputation presented on 09/21/19 with a syncopal episode in setting of hypoglycemia and LE cellulitis. Initial work up was remarkable for leukocytosis 11.4, Cr 1.9, glucose 57, trop 0.02 (repeat trop 0.05 on 09/22/19), BNP 1093.5, and 3+ protein on UA. EKG showed sinus bradycardia with 1st degree AV block and RBBB. Following imaging studies were all unremarkable: Head CT, CXR, LLE XR, and carotid doppler. Patient was admitted for further evaluation of a syncopal episode in setting of leukocytosis, hypoglycemia, and LE cellulitis. COVID negative. Over the hospital course, patient's BGMs improved, leukocytosis resolved, and patient has been optimized for discharge home. He will follow up with his primary care doctor and the wound care center to discuss his DM management and bilateral LE wounds respectively. Date of Admission:09/21/19 Date of Discharge: 09/24/19 Minutes to complete discharge: 37 Discharge Summary Problems reviewed: Yes Reason For Visit: HYPOGLYCEMIA,SYNCOPE Condition: Improved - Instructions Diet, Activity, Other Instructions: Hospital Course: You came to the hospital because you fell at home and lost consciousness. Upon your arrival, your glucose was very low so you were admitted for management of your glucose. Over your hospital stay, your glucose values improved, and you are now ready to go home. Since you also have some wounds on your lower legs, we recommend taking antibiotics for a few days: Medications: Please take Levaquin 250mg by mouth, once per day for 6 more days starting tomorrow please decrease your insulin 70/30 to 30 units twice a day with meals. and take sliding scale insulin with meals. call your MD for adjustments in your insulin regimen . check sugar three times a day Follow up: - your primary care doctor, Dr. Veda Alexander - please see her within a week of leaving the hospital. - the wound care center - please return for further management of your wounds within 2 weeks Diet: We recommend a well-balanced diet including much fruit and vegetables. We also recommend avoiding foods that are high in fat, salt or sugar, such as sweet, fast food, fried foods, sodas, and store-bought juices. Wound care: please keep your leg wounds clean and dry, wrap with clean dry gauze and follow up with your primary care doctor and the wound care center in regards to caring or your wounds. Also, since your right leg brace has been causing some of your wounds, you may need to follow up with physical therapy for a new brace or getting your current brace re-fitted. Other instructions: If you experience another episode of falling and/or losing consciousness, or if you are experiencing worsening of your wounds, new wounds, chest pain, palpitations, shortness of breath, fever/chills, or any other concerning symptoms, please report to your nearest emergency room or call 911. Referrals: Veda Alexander MD [Primary Care Provider] - 1 Week Disposition: HOME - Home Medications Comprehensive Discharge Medication List: Ambulatory Orders Clopidogrel Bisulfate [Plavix] 75 mg PO DAILY 04/23/18 Metoprolol Succinate [Toprol Xl] 100 mg PO DAILY 07/23/18 Aspirin Coated [Ecotrin -] 81 mg PO DAILY tablet.ec 02/20/19 Atorvastatin Ca [Lipitor] 40 mg PO HS tablet 02/20/19 Losartan Potassium [Cozaar -] 25 mg PO DAILY tablet 02/20/19 Sodium Bicarbonate - 650 mg PO DAILY 03/15/19 Nitroglycerin 1 tab PO DAILY 07/31/19 Mupirocin Cream [Bactroban 2% Cream -] 1 applic TP DAILY #1 tube 08/28/19 Torsemide [Demadex -] 80 mg PO DAILY 09/22/19 Insulin (Novolog 70/30) [Novolog Mix 70/30 Vial -] 30 ml SQ BID #1 vial 09/24/19 Insulin Sliding Scale [Novolog Vial Sliding Scale -] See Protocol SQ TIDAC #1 pen 09/24/19 levoFLOXacin [Levaquin -] 250 mg PO DAILY 6 Days #6 tablet 09/24/19 This patient is new to me today: No Emergency Visit: Yes ED Registration Date: 09/21/19 Care time: The patient presented to the Emergency Department on the above date and was hospitalized for further evaluation of their emergent condition. Critical Care patient: No - Discharge Referral Referred to [facility] No ATTENDING PHYSICIAN STATEMENT I saw and evaluated the patient. I reviewed the resident's note and discussed the case with the resident. I agree with the resident's findings and plan as documented. SUBJECTIVE: OBJECTIVE: ASSESSMENT AND PLAN:
== END 2019-09-24 19:02 | disposition home or self-care (01) ==
LOC: JER 17:15 → INTOOBSV 19:09 → JERBED 19:09 → J8W 09-22 17:00
PROVIDERS: ADMIT Internal Medicine; ATTEND Internal Medicine
PROC: 3E023GC Introduction of Other Therapeutic Substance into Muscle, Percutaneous Approach (ICD-10-PCS; principal; 2019-09-21)
PROC: 3E013VG Introduction of Insulin into Subcutaneous Tissue, Percutaneous Approach (ICD-10-PCS; 2019-09-21)
PROC: 3E033GC Introduction of Other Therapeutic Substance into Peripheral Vein, Percutaneous Approach (ICD-10-PCS; 2019-09-21)
PROC: 3E03329 Introduction of Other Anti-infective into Peripheral Vein, Percutaneous Approach (ICD-10-PCS; 2019-09-21)
DX: R55 Syncope and collapse (principal); E16.2 Hypoglycemia, unspecified; E66.01 Morbid (severe) obesity due to excess calories; Z68.41 Body mass index [BMI] 40.0-44.9, adult; I25.10 Atherosclerotic heart disease of native coronary artery without angina pectoris; Z95.5 Presence of coronary angioplasty implant and graft; I10 Essential (primary) hypertension; E78.5 Hyperlipidemia, unspecified; Z89.431 Acquired absence of right foot; I73.9 Peripheral vascular disease, unspecified
CPT/HCPCS: 36415; 70450-TC; 71045-TC-FY; 73590-TC-LT-FY; 76775-TC; 76856-TC; 80053; 81003; 82550; 82553; 82962; 83036; 83735; 83880; 84100; 84484; 85025; 85027; 85610; 85730; 87040; 87086; 93005; 93010; 93306-TC; 93880-TC; 94660; 96365; 96366; 96367; 96372; 99285-25; G0378; G0480; J1644; U0003

== ENCOUNTER 2020-01-21 14:07 | Emergency (ER) | payer OTHER, BC ==
[2020-01-21 14:39] VITALS: BMI 41.0
[2020-01-21] MEDS ORDERED: BAMLANIVIMAB 700 MG in SODIUM CHLORIDE 180 ML IVPB ONE (15:58)
[2020-01-21 16:17] LABS: BASO % 0.2 % (0-2.0); EOS % 0.3 % (0-4.5); HEMOGLOBIN 14.2 GM/dL (11.7-16.9); LYMPH % 7.7 % (8-40); MCH 25.8 pg (25.7-33.7); MCHC 33.1 g/dl (32.0-35.9); MEAN CELL VOLUME 77.9 fl (80-96); MEAN PLT VOLUME 9.3 fl (7.5-11.1); MONO % 5.4 % (3.8-10.2); NEUT % 86.4 % (42.8-82.8); PLATELET COUNT 198 K/MM3 (134-434); RBC 5.51 M/mm3 (4.00-5.60); RDW 17.3 % (11.9-15.9)
[2020-01-21 16:41] LABS: ALBUMIN 2.8 g/dl (3.4-5.0); BLOOD UREA NITROGEN 24.5 mg/dL (7-18); CALCIUM 8.1 mg/dL (8.5-10.1)
[2020-01-21 16:44] LABS: CREATININE 1.7 mg/dL (0.55-1.3)
[2020-01-21 16:46] LABS: TOT PROT 6.6 g/dl (6.4-8.2)
[2020-01-21 16:50] LABS: BILIRUBIN,TOTAL 0.9 mg/dL (0.2-1)
[2020-01-21 19:44] VITALS: BP 124/74; PULSE 97; TEMP 98.8
== END 2020-01-21 19:22 | disposition home or self-care (01) ==
LOC: JER 14:07
PROC: 3E0337Z Introduction of Electrolytic and Water Balance Substance into Peripheral Vein, Percutaneous Approach (ICD-10-PCS; principal; 2020-01-21)
DX: U07.1 COVID-19 (principal)
CPT/HCPCS: 36415; 80053; 85025; 99284-25; C9803; Q0239; U0003

== ENCOUNTER 2020-05-19 11:09 | Inpatient (IN) | payer OTHER, BC ==
[2020-05-19] MEDS ORDERED: FUROSEMIDE 40 MG TABLET (FP) PO ONE (12:50)
[2020-05-19] MEDS ORDERED: FUROSEMIDE 40 MG TABLET (FP) ONE (13:20)
[2020-05-19 13:23] LABS: HEMATOCRIT 38.9 % (35.4-49); HEMOGLOBIN 12.9 GM/dL (11.7-16.9); MCH 26.5 pg (25.7-33.7); MCHC 33.1 g/dl (32.0-35.9); MEAN CELL VOLUME 80.1 fl (80-96); MEAN PLT VOLUME 8.9 fl (7.5-11.1); PLATELET COUNT 273 K/MM3 (134-434); RBC 4.86 M/mm3 (4.00-5.60); RDW 19.1 % (11.9-15.9)
[2020-05-19 13:26] LABS: WHITE BLOOD COUNT 13.5 K/mm3 (4.0-10.0)
[2020-05-19 13:49] LABS: ALBUMIN 3.2 g/dl (3.4-5.0); BLOOD UREA NITROGEN 50.3 mg/dL (7-18); CALCIUM 8.8 mg/dL (8.5-10.1)
[2020-05-19 13:52] LABS: CREATININE 2.2 mg/dL (0.55-1.3)
[2020-05-19 13:54] LABS: BILIRUBIN,TOTAL 0.6 mg/dL (0.2-1); TOT PROT 7.2 g/dl (6.4-8.2)
[2020-05-19 14:47] LABS: ANISOCYTOSIS 1+; MACROCYTOSIS 0; PLATELET ESTIMATE NORMAL
[2020-05-19] MEDS ORDERED: VANCOMYCIN 1 GM in D5W (PRE-DOCKED) 1,000 MG/250 ML IVPB ONE (17:51)
[2020-05-19 18:50] LABS: EPI CELLS 2 /uL (0-25.1); HYALINE CASTS 0 /uL (0-3.1); PH,URINE 5.5 (5.0-8.0); URINE APPEARANCE CLEAR; URINE BACTERIA 11 /uL (0-1359); URINE BILIRUBIN NEGATIVE (NEGATIVE); URINE COLOR YELLOW; URINE GLUCOSE (UA) NEGATIVE (NEGATIVE); URINE KETONE NEGATIVE (NEGATIVE); URINE LEUK ESTERASE NEGATIVE (NEGATIVE); URINE NITRITE NEGATIVE (NEGATIVE); URINE PROTEIN 2+ (NEGATIVE); URINE RBC 4 /uL (0-23.9); URINE UROBILINOGEN 0.2 mg/dL (0.2-1.0); URINE WBC 2 /uL (0-25.8)
[2020-05-19] MEDS ORDERED: CLOPIDOGREL BISULFATE 75 MG TABLET (FP) ONE (19:12)
[2020-05-19] MEDS ORDERED: HEPARIN NA (PORCINE) 5,000 UNITS/ML 1ML VIAL ONE (19:12)
[2020-05-19] MEDS ORDERED: ASPIRIN COATED 81 MG TABLET.EC ONE (19:12)
[2020-05-19] MEDS ORDERED: PIPERACILLIN/TAZOB 3.375 GM 3.375 GM/50 ML BAG IVPB ONE (19:13)
[2020-05-19] MEDS: ASPIRIN COATED 81 MG TABLET.EC PO SCH (19:18)
[2020-05-19] MEDS: CLOPIDOGREL BISULFATE 75 MG TABLET (FP) PO SCH (19:18)
[2020-05-19] MEDS: PIPERACILLIN/TAZOB 3.375 GM 3.375 GM in DEXTROSE 5%-WATER - 50 ML IVPB SCH (19:18)
[2020-05-19] MEDS: HEPARIN NA (PORCINE) 5,000 UNITS/ML 1ML VIAL SQ SCH ×2 (19:18→21:32)
[2020-05-19] MEDS ORDERED: VANCOMYCIN 1 GRAM (PRE-DOCKED) 1,000 MG/250 ML BAG IVPB ONE (20:30)
[2020-05-19] MEDS ORDERED: FUROSEMIDE 40 MG/4 ML INJECTABLE VIAL ONE (20:39)
[2020-05-19] MEDS: FUROSEMIDE 40 MG/4 ML INJECTABLE VIAL IVPUSH SCH (20:41)
[2020-05-19] MEDS ORDERED: ATORVASTATIN CA 40 MG TABLET (FP) ONE (21:34)
[2020-05-19] MEDS: INSULIN SLIDING SCALE (NOVOLOG) 1 VIAL SQ SCH (21:49)
[2020-05-19] MEDS: ATORVASTATIN CA 40 MG TABLET (FP) PO SCH (21:49)
[2020-05-20 01:01] LABS: EPI CELLS 8 /uL (0-25.1); HYALINE CASTS 0 /uL (0-3.1); PH,URINE 5.5 (5.0-8.0); URINE APPEARANCE CLEAR; URINE BACTERIA 537 /uL (0-1359); URINE BILIRUBIN NEGATIVE (NEGATIVE); URINE COLOR YELLOW; URINE GLUCOSE (UA) TRACE (NEGATIVE); URINE KETONE NEGATIVE (NEGATIVE); URINE LEUK ESTERASE NEGATIVE (NEGATIVE); URINE NITRITE NEGATIVE (NEGATIVE); URINE PROTEIN 2+ (NEGATIVE); URINE RBC 4 /uL (0-23.9); URINE UROBILINOGEN 0.2 mg/dL (0.2-1.0); URINE WBC 29 /uL (0-25.8)
[2020-05-20] MEDS ORDERED: ASPIRIN 81 MG CHEWABLE TABLETS PO ONE (02:58)
[2020-05-20] MEDS ORDERED: PIPERACILLIN/TAZOB 3.375 GM 3.375 GM/50 ML BAG IVPB ONE ×2 (03:07→10:03)
[2020-05-20] MEDS ORDERED: FUROSEMIDE 40 MG/4 ML INJECTABLE VIAL ONE ×3 (03:07→16:27)
[2020-05-20] MEDS: FUROSEMIDE 40 MG/4 ML INJECTABLE VIAL IVPUSH SCH ×2 (03:17→11:00)
[2020-05-20] MEDS: PIPERACILLIN/TAZOB 3.375 GM 3.375 GM in DEXTROSE 5%-WATER - 50 ML IVPB SCH ×2 (03:17→11:41)
[2020-05-20] MEDS ORDERED: HEPARIN NA (PORCINE) 5,000 UNITS/ML 1ML VIAL ONE ×2 (06:01→16:27)
[2020-05-20] MEDS: HEPARIN NA (PORCINE) 5,000 UNITS/ML 1ML VIAL SQ SCH ×3 (06:05→23:00)
[2020-05-20 06:46] LABS: EOS % 6.8 % (0-4.5); HEMATOCRIT 35.1 % (35.4-49); HEMOGLOBIN 11.7 GM/dL (11.7-16.9); LYMPH % 17.4 % (8-40); MCH 26.7 pg (25.7-33.7); MCHC 33.2 g/dl (32.0-35.9); MEAN CELL VOLUME 80.2 fl (80-96); MEAN PLT VOLUME 8.9 fl (7.5-11.1); MONO % 5.3 % (3.8-10.2); NEUT % 69.5 % (42.8-82.8); PLATELET COUNT 261 K/MM3 (134-434); RBC 4.38 M/mm3 (4.00-5.60); RDW 18.9 % (11.9-15.9); WHITE BLOOD COUNT 7.1 K/mm3 (4.0-10.0)
[2020-05-20 07:10] LABS: ALBUMIN 3.1 g/dl (3.4-5.0); MAGNESIUM 2.2 mg/dL (1.8-2.4)
[2020-05-20 07:11] LABS: CALCIUM 8.7 mg/dL (8.5-10.1)
[2020-05-20 07:12] LABS: BLOOD UREA NITROGEN 51.3 mg/dL (7-18)
[2020-05-20 07:13] LABS: CREATININE 2.1 mg/dL (0.55-1.3)
[2020-05-20 07:15] LABS: PHOSPHOROUS 4.8 mg/dL (2.5-4.9); TOT PROT 7.1 g/dl (6.4-8.2)
[2020-05-20 07:16] LABS: BILIRUBIN,TOTAL 0.7 mg/dL (0.2-1)
[2020-05-20] MEDS: INSULIN SLIDING SCALE (NOVOLOG) 1 VIAL SQ SCH ×4 (08:30→23:00)
[2020-05-20] MEDS ORDERED: ASPIRIN COATED 81 MG TABLET.EC ONE (10:02)
[2020-05-20] MEDS ORDERED: CLOPIDOGREL BISULFATE 75 MG TABLET (FP) ONE (10:02)
[2020-05-20] MEDS: CLOPIDOGREL BISULFATE 75 MG TABLET (FP) PO SCH (11:00)
[2020-05-20] MEDS: ASPIRIN COATED 81 MG TABLET.EC PO SCH (11:00)
[2020-05-20] MEDS: CEFAZOLIN 2 GM/D5W 2 GM/50 ML ML IVPB SCH ×2 (16:00→23:00)
[2020-05-20] MEDS ORDERED: METOLAZONE 2.5 MG TABLET (FP) PO ONE (16:21)
[2020-05-20] MEDS ORDERED: CEFAZOLIN 2 GM/D5W 2 GM/50 ML ML IVPB ONE (16:26)
[2020-05-20] MEDS: FUROSEMIDE 100 MG/10 ML INJECTABLE VIAL IVPB SCH (17:57)
[2020-05-20] MEDS ORDERED: PIPERACILLIN/TAZOB 3.375 GM 3.375 GM in DEXTROSE 5%-WATER - 50 ML IVPB SCH (18:00)
[2020-05-20] MEDS: ATORVASTATIN CA 40 MG TABLET (FP) PO SCH (23:00)
[2020-05-20 23:21] VITALS: BMI 44.5
[2020-05-21] MEDS: HEPARIN NA (PORCINE) 5,000 UNITS/ML 1ML VIAL SQ SCH ×3 (06:14→21:42)
[2020-05-21] MEDS: FUROSEMIDE 100 MG/10 ML INJECTABLE VIAL IVPB SCH ×2 (06:14→13:44)
[2020-05-21] MEDS: INSULIN SLIDING SCALE (NOVOLOG) 1 VIAL SQ SCH ×4 (06:14→21:40)
[2020-05-21 07:39] LABS: HEMATOCRIT 35.1 % (35.4-49); HEMOGLOBIN 11.6 GM/dL (11.7-16.9); MCH 26.6 pg (25.7-33.7); MCHC 33.1 g/dl (32.0-35.9); MEAN CELL VOLUME 80.5 fl (80-96); PLATELET COUNT 234 K/MM3 (134-434); RBC 4.36 M/mm3 (4.00-5.60); WHITE BLOOD COUNT 6.2 K/mm3 (4.0-10.0)
[2020-05-21 08:55] LABS: CALCIUM 9.2 mg/dL (8.5-10.1)
[2020-05-21 08:56] LABS: ALBUMIN 3.2 g/dl (3.4-5.0); BLOOD UREA NITROGEN 52.4 mg/dL (7-18)
[2020-05-21 08:59] LABS: CREATININE 2.1 mg/dL (0.55-1.3)
[2020-05-21 09:01] LABS: BILIRUBIN,TOTAL 0.5 mg/dL (0.2-1); TOT PROT 7.6 g/dl (6.4-8.2)
[2020-05-21] MEDS: CEFAZOLIN 2 GM/D5W 2 GM/50 ML ML IVPB SCH ×2 (10:05→21:43)
[2020-05-21] MEDS: ASPIRIN COATED 81 MG TABLET.EC PO SCH (10:05)
[2020-05-21] MEDS: CLOPIDOGREL BISULFATE 75 MG TABLET (FP) PO SCH (10:05)
[2020-05-21] MEDS: INSULIN (LEVEMIR) 100 UNITS/ML UNITS SQ SCH (10:06)
[2020-05-21] MEDS: INSULIN (NOVOLOG) ASPART 100 UNITS/ML 10ML VIAL SQ SCH ×2 (11:53→16:39)
[2020-05-21] MEDS ORDERED: PT OWN MED DRAWER 7, Y5N ONE (12:50)
[2020-05-21] MEDS ORDERED: METOLAZONE 5 MG TABLET PO ONE (13:30)
[2020-05-21] MEDS ORDERED: INSULIN (NOVOLOG) ASPART 100 UNITS/ML 10ML VIAL ONE (16:38)
[2020-05-21] MEDS: ATORVASTATIN CA 40 MG TABLET (FP) PO SCH (21:43)
[2020-05-21] MEDS ORDERED: INSULIN (LEVEMIR) 100 UNITS/ML UNITS SQ SCH (22:00)
[2020-05-22] MEDS: INSULIN SLIDING SCALE (NOVOLOG) 1 VIAL SQ SCH ×4 (06:49→22:35)
[2020-05-22] MEDS: FUROSEMIDE 100 MG/10 ML INJECTABLE VIAL IVPB SCH ×2 (06:50→13:27)
[2020-05-22] MEDS: INSULIN (NOVOLOG) ASPART 100 UNITS/ML 10ML VIAL SQ SCH ×3 (06:50→16:45)
[2020-05-22] MEDS: HEPARIN NA (PORCINE) 5,000 UNITS/ML 1ML VIAL SQ SCH (06:50)
[2020-05-22] MEDS: INSULIN (LEVEMIR) 100 UNITS/ML UNITS SQ SCH ×2 (06:50→22:35)
[2020-05-22 07:05] LABS: HEMATOCRIT 34.8 % (35.4-49); HEMOGLOBIN 11.8 GM/dL (11.7-16.9); MCH 26.8 pg (25.7-33.7); MCHC 33.9 g/dl (32.0-35.9); MEAN PLT VOLUME 8.7 fl (7.5-11.1); PLATELET COUNT 248 K/MM3 (134-434); RDW 18.5 % (11.9-15.9); WHITE BLOOD COUNT 6.2 K/mm3 (4.0-10.0)
[2020-05-22 07:47] LABS: ALBUMIN 3.2 g/dl (3.4-5.0); BLOOD UREA NITROGEN 56.7 mg/dL (7-18)
[2020-05-22 07:51] LABS: BILIRUBIN,TOTAL 0.5 mg/dL (0.2-1)
[2020-05-22 07:52] LABS: TOT PROT 7.3 g/dl (6.4-8.2)
[2020-05-22] MEDS: CLOPIDOGREL BISULFATE 75 MG TABLET (FP) PO SCH (09:54)
[2020-05-22] MEDS: ASPIRIN COATED 81 MG TABLET.EC PO SCH (09:54)
[2020-05-22] MEDS: CEFAZOLIN 2 GM/D5W 2 GM/50 ML ML IVPB SCH ×2 (09:54→22:34)
[2020-05-22] MEDS: APIXABAN 5 MG TABLET PO SCH ×2 (10:57→22:34)
[2020-05-22] MEDS ORDERED: METOLAZONE 5 MG TABLET PO ONE (13:30)
[2020-05-22] MEDS ORDERED: PT OWN MED DRAWER 7, Y5N ONE (14:39)
[2020-05-22] MEDS: SILVER SULFADIAZINE 1% TOP CREAM 50 GM JAR TP SCH (17:44)
[2020-05-22] MEDS: ATORVASTATIN CA 40 MG TABLET (FP) PO SCH (22:34)
[2020-05-23] MEDS: FUROSEMIDE 100 MG/10 ML INJECTABLE VIAL IVPB SCH ×2 (06:27→13:19)
[2020-05-23] MEDS: INSULIN (NOVOLOG) ASPART 100 UNITS/ML 10ML VIAL SQ SCH ×3 (06:30→20:55)
[2020-05-23] MEDS: INSULIN SLIDING SCALE (NOVOLOG) 1 VIAL SQ SCH ×4 (06:31→21:54)
[2020-05-23 07:13] LABS: HEMATOCRIT 36.7 % (35.4-49); HEMOGLOBIN 12.2 GM/dL (11.7-16.9); MCH 26.5 pg (25.7-33.7); MCHC 33.3 g/dl (32.0-35.9); MEAN CELL VOLUME 79.6 fl (80-96); MEAN PLT VOLUME 8.7 fl (7.5-11.1); PLATELET COUNT 241 K/MM3 (134-434); RBC 4.61 M/mm3 (4.00-5.60); RDW 18.8 % (11.9-15.9); WHITE BLOOD COUNT 6.3 K/mm3 (4.0-10.0)
[2020-05-23 07:36] LABS: CALCIUM 9.1 mg/dL (8.5-10.1)
[2020-05-23 07:37] LABS: ALBUMIN 3.2 g/dl (3.4-5.0); BLOOD UREA NITROGEN 56.7 mg/dL (7-18); MAGNESIUM 2.2 mg/dL (1.8-2.4)
[2020-05-23 07:42] LABS: BILIRUBIN,TOTAL 0.6 mg/dL (0.2-1); TOT PROT 7.4 g/dl (6.4-8.2)
[2020-05-23] MEDS ORDERED: POTASSIUM CHLORIDE TABS 20 MEQ TABLET.ER (FP) PO ONE (07:44)
[2020-05-23] MEDS: INSULIN (LEVEMIR) 100 UNITS/ML UNITS SQ SCH ×4 (09:17→21:52)
[2020-05-23] MEDS: APIXABAN 5 MG TABLET PO SCH ×2 (09:17→21:48)
[2020-05-23] MEDS: CEFAZOLIN 2 GM/D5W 2 GM/50 ML ML IVPB SCH ×2 (09:18→21:48)
[2020-05-23] MEDS: SILVER SULFADIAZINE 1% TOP CREAM 50 GM JAR TP SCH (09:18)
[2020-05-23] MEDS: CLOPIDOGREL BISULFATE 75 MG TABLET (FP) PO SCH (09:18)
[2020-05-23] MEDS ORDERED: INSULIN (NOVOLOG) ASPART 100 UNITS/ML 10ML VIAL SQ SCH (16:43)
[2020-05-23] MEDS: ATORVASTATIN CA 40 MG TABLET (FP) PO SCH (21:48)
[2020-05-23] MEDS ORDERED: MELATONIN 5 MG TABLETS PO ONE (22:21)
[2020-05-24] MEDS: FUROSEMIDE 100 MG/10 ML INJECTABLE VIAL IVPB SCH ×2 (05:58→14:13)
[2020-05-24] MEDS: INSULIN (LEVEMIR) 100 UNITS/ML UNITS SQ SCH ×2 (06:18→21:54)
[2020-05-24 07:18] LABS: HEMATOCRIT 37.5 % (35.4-49); HEMOGLOBIN 12.5 GM/dL (11.7-16.9); LYMPH % 18.4 % (8-40); MCH 26.6 pg (25.7-33.7); MCHC 33.2 g/dl (32.0-35.9); MEAN CELL VOLUME 79.9 fl (80-96); MEAN PLT VOLUME 8.8 fl (7.5-11.1); MONO % 7.4 % (3.8-10.2); NEUT % 65.2 % (42.8-82.8); PLATELET COUNT 255 K/MM3 (134-434); RBC 4.69 M/mm3 (4.00-5.60); RDW 18.2 % (11.9-15.9); WHITE BLOOD COUNT 6.7 K/mm3 (4.0-10.0)
[2020-05-24 07:20] LABS: MAGNESIUM 2.3 mg/dL (1.8-2.4)
[2020-05-24 07:22] LABS: BLOOD UREA NITROGEN 57.4 mg/dL (7-18)
[2020-05-24 07:23] LABS: CALCIUM 9.7 mg/dL (8.5-10.1); CREATININE 2.1 mg/dL (0.55-1.3)
[2020-05-24] MEDS: INSULIN SLIDING SCALE (NOVOLOG) 1 VIAL SQ SCH ×4 (07:35→21:55)
[2020-05-24] MEDS ORDERED: INSULIN (LEVEMIR) 100 UNITS/ML UNITS SQ SCH ×2 (07:39→22:00)
[2020-05-24] MEDS ORDERED: INSULIN (LEVEMIR) 100 UNITS/ML UNITS SQ ONE (08:20)
[2020-05-24] MEDS: CLOPIDOGREL BISULFATE 75 MG TABLET (FP) PO SCH (09:55)
[2020-05-24] MEDS: CEFAZOLIN 2 GM/D5W 2 GM/50 ML ML IVPB SCH ×2 (09:55→21:47)
[2020-05-24] MEDS: APIXABAN 5 MG TABLET PO SCH ×2 (09:55→21:47)
[2020-05-24] MEDS: SILVER SULFADIAZINE 1% TOP CREAM 50 GM JAR TP SCH (09:56)
[2020-05-24] MEDS: INSULIN (NOVOLOG) ASPART 100 UNITS/ML 10ML VIAL SQ SCH ×2 (12:14→17:01)
[2020-05-24] MEDS ORDERED: ACETAMINOPHEN 325 MG TABLET (FP) PO PRN (14:47)
[2020-05-24] MEDS: ATORVASTATIN CA 40 MG TABLET (FP) PO SCH (21:47)
[2020-05-24] MEDS ORDERED: MELATONIN 5 MG TABLETS PO ONE (23:36)
[2020-05-25] MEDS: FUROSEMIDE 100 MG/10 ML INJECTABLE VIAL IVPB SCH ×2 (05:34→15:23)
[2020-05-25] MEDS: INSULIN (LEVEMIR) 100 UNITS/ML UNITS SQ SCH ×2 (06:57→21:40)
[2020-05-25] MEDS: INSULIN (NOVOLOG) ASPART 100 UNITS/ML 10ML VIAL SQ SCH ×3 (06:57→17:18)
[2020-05-25] MEDS: INSULIN SLIDING SCALE (NOVOLOG) 1 VIAL SQ SCH ×4 (06:58→21:41)
[2020-05-25 07:06] LABS: BASO % 0.8 % (0-2.0); EOS % 8.6 % (0-4.5); HEMATOCRIT 36.7 % (35.4-49); HEMOGLOBIN 12.3 GM/dL (11.7-16.9); LYMPH % 19.4 % (8-40); MCH 26.7 pg (25.7-33.7); MCHC 33.7 g/dl (32.0-35.9); MEAN CELL VOLUME 79.4 fl (80-96); MEAN PLT VOLUME 8.7 fl (7.5-11.1); MONO % 7.6 % (3.8-10.2); NEUT % 63.6 % (42.8-82.8); PLATELET COUNT 261 K/MM3 (134-434); RBC 4.62 M/mm3 (4.00-5.60); RDW 18.2 % (11.9-15.9); WHITE BLOOD COUNT 7.8 K/mm3 (4.0-10.0)
[2020-05-25 07:28] LABS: BLOOD UREA NITROGEN 70.1 mg/dL (7-18); MAGNESIUM 2.2 mg/dL (1.8-2.4)
[2020-05-25 07:31] LABS: CREATININE 2.3 mg/dL (0.55-1.3)
[2020-05-25 07:40] LABS: CALCIUM 9.5 mg/dL (8.5-10.1)
[2020-05-25] MEDS: CLOPIDOGREL BISULFATE 75 MG TABLET (FP) PO SCH (09:48)
[2020-05-25] MEDS: APIXABAN 5 MG TABLET PO SCH ×2 (09:48→21:33)
[2020-05-25] MEDS: SILVER SULFADIAZINE 1% TOP CREAM 50 GM JAR TP SCH ×2 (09:48→12:58)
[2020-05-25] MEDS: CEFAZOLIN 2 GM/D5W 2 GM/50 ML ML IVPB SCH ×2 (09:48→21:33)
[2020-05-25] MEDS ORDERED: METOLAZONE 2.5 MG TABLET (FP) PO ONE (13:30)
[2020-05-25] MEDS ORDERED: PT OWN MED DRAWER 7, Y5N ONE ×2 (14:29→20:21)
[2020-05-25] MEDS: ATORVASTATIN CA 40 MG TABLET (FP) PO SCH (21:33)
[2020-05-25] MEDS: MELATONIN 5 MG TABLETS PO PRN (23:18)
[2020-05-26] MEDS: FUROSEMIDE 100 MG/10 ML INJECTABLE VIAL IVPB SCH ×2 (06:11→13:28)
[2020-05-26] MEDS: INSULIN (LEVEMIR) 100 UNITS/ML UNITS SQ SCH ×2 (06:32→21:35)
[2020-05-26] MEDS: INSULIN (NOVOLOG) ASPART 100 UNITS/ML 10ML VIAL SQ SCH ×3 (06:33→16:42)
[2020-05-26] MEDS: INSULIN SLIDING SCALE (NOVOLOG) 1 VIAL SQ SCH ×4 (06:34→21:36)
[2020-05-26 06:46] LABS: EOS % 9.8 % (0-4.5); HEMATOCRIT 34.5 % (35.4-49); HEMOGLOBIN 11.5 GM/dL (11.7-16.9); LYMPH % 17.6 % (8-40); MCH 26.8 pg (25.7-33.7); MCHC 33.4 g/dl (32.0-35.9); MEAN CELL VOLUME 80.2 fl (80-96); MONO % 7.1 % (3.8-10.2); NEUT % 64.5 % (42.8-82.8); PLATELET COUNT 238 K/MM3 (134-434); RDW 18.4 % (11.9-15.9); WHITE BLOOD COUNT 7.4 K/mm3 (4.0-10.0)
[2020-05-26 07:02] LABS: CALCIUM 9.2 mg/dL (8.5-10.1)
[2020-05-26 07:03] LABS: BLOOD UREA NITROGEN 75.2 mg/dL (7-18)
[2020-05-26 07:08] LABS: BILIRUBIN,TOTAL 1.2 mg/dL (0.2-1); TOT PROT 7.2 g/dl (6.4-8.2)
[2020-05-26] MEDS ORDERED: POTASSIUM CHLORIDE TABS 20 MEQ TABLET.ER (FP) PO ONE ×2 (07:45→18:00)
[2020-05-26] MEDS: APIXABAN 5 MG TABLET PO SCH ×2 (09:28→21:35)
[2020-05-26] MEDS: CLOPIDOGREL BISULFATE 75 MG TABLET (FP) PO SCH (09:28)
[2020-05-26] MEDS: CEFAZOLIN 2 GM/D5W 2 GM/50 ML ML IVPB SCH ×2 (09:29→21:34)
[2020-05-26] MEDS ORDERED: METOLAZONE 5 MG TABLET PO ONE (12:12)
[2020-05-26] MEDS ORDERED: PT OWN MED DRAWER 7, Y5N ONE (13:23)
[2020-05-26] MEDS: ATORVASTATIN CA 40 MG TABLET (FP) PO SCH (21:35)
[2020-05-26] MEDS: MELATONIN 5 MG TABLETS PO PRN (23:07)
[2020-05-27] MEDS: INSULIN (NOVOLOG) ASPART 100 UNITS/ML 10ML VIAL SQ SCH ×3 (06:29→18:10)
[2020-05-27] MEDS: INSULIN (LEVEMIR) 100 UNITS/ML UNITS SQ SCH ×2 (06:30→21:28)
[2020-05-27] MEDS: INSULIN SLIDING SCALE (NOVOLOG) 1 VIAL SQ SCH ×4 (06:30→21:29)
[2020-05-27] MEDS: FUROSEMIDE 100 MG/10 ML INJECTABLE VIAL IVPB SCH ×2 (06:30→15:00)
[2020-05-27 06:59] LABS: HEMATOCRIT 36.5 % (35.4-49); HEMOGLOBIN 12.1 GM/dL (11.7-16.9); MCH 26.5 pg (25.7-33.7); MCHC 33.1 g/dl (32.0-35.9); MEAN CELL VOLUME 79.9 fl (80-96); PLATELET COUNT 265 K/MM3 (134-434); RBC 4.57 M/mm3 (4.00-5.60); RDW 18.5 % (11.9-15.9); WHITE BLOOD COUNT 7.9 K/mm3 (4.0-10.0)
[2020-05-27 07:15] LABS: BLOOD UREA NITROGEN 77.1 mg/dL (7-18); CALCIUM 9.1 mg/dL (8.5-10.1)
[2020-05-27 07:16] LABS: ALBUMIN 3.2 g/dl (3.4-5.0)
[2020-05-27 07:21] LABS: BILIRUBIN,TOTAL 0.4 mg/dL (0.2-1); TOT PROT 7.6 g/dl (6.4-8.2)
[2020-05-27] MEDS: APIXABAN 5 MG TABLET PO SCH ×2 (09:40→21:28)
[2020-05-27] MEDS: CLOPIDOGREL BISULFATE 75 MG TABLET (FP) PO SCH (09:40)
[2020-05-27] MEDS: CEFAZOLIN 2 GM/D5W 2 GM/50 ML ML IVPB SCH (09:40)
[2020-05-27] MEDS ORDERED: POTASSIUM CHLORIDE TABS 20 MEQ TABLET.ER (FP) PO ONE (11:47)
[2020-05-27] MEDS ORDERED: METOLAZONE 5 MG TABLET PO ONE (12:00)
[2020-05-27] MEDS ORDERED: PT OWN MED DRAWER 7, Y5N ONE (14:37)
[2020-05-27] MEDS ORDERED: diphenhydrAMINE HCL 25 MG CAPSULE (FP) PO PRN (17:04)
[2020-05-27] MEDS ORDERED: INSULIN (NOVOLOG) ASPART 100 UNITS/ML 10ML VIAL ONE (21:18)
[2020-05-27] MEDS: diphenhydrAMINE HCL 25 MG CAPSULE (FP) PO PRN (21:28)
[2020-05-27] MEDS: ATORVASTATIN CA 40 MG TABLET (FP) PO SCH (21:28)
[2020-05-27] MEDS: MELATONIN 5 MG TABLETS PO PRN (22:09)
[2020-05-28] MEDS: FUROSEMIDE 100 MG/10 ML INJECTABLE VIAL IVPB SCH ×2 (05:56→13:25)
[2020-05-28] MEDS: INSULIN (LEVEMIR) 100 UNITS/ML UNITS SQ SCH (06:42)
[2020-05-28] MEDS: INSULIN (NOVOLOG) ASPART 100 UNITS/ML 10ML VIAL SQ SCH ×2 (06:43→11:48)
[2020-05-28] MEDS: INSULIN SLIDING SCALE (NOVOLOG) 1 VIAL SQ SCH ×2 (06:43→11:49)
[2020-05-28 09:06] LABS: CALCIUM 9.9 mg/dL (8.5-10.1)
[2020-05-28 09:07] LABS: BLOOD UREA NITROGEN 75.7 mg/dL (7-18)
[2020-05-28 09:10] LABS: CREATININE 2.1 mg/dL (0.55-1.3)
[2020-05-28] MEDS: diphenhydrAMINE HCL 25 MG CAPSULE (FP) PO PRN (09:31)
[2020-05-28] MEDS: CLOPIDOGREL BISULFATE 75 MG TABLET (FP) PO SCH (09:31)
[2020-05-28] MEDS: APIXABAN 5 MG TABLET PO SCH (09:31)
[2020-05-28 15:46] VITALS: BP 134/74; PULSE 57; TEMP 97.6
== END 2020-05-28 16:36 | disposition home or self-care (01) | DRG 291 ==
LOC: JER 11:09 → JERBED 15:44 → J4W 05-20 22:46
PROVIDERS: ADMIT Internal Medicine
DX: I13.0 Hypertensive heart and chronic kidney disease with heart failure and stage 1 through stage 4 chronic kidney disease, or unspecified chronic kidney disease (principal); I50.33 Acute on chronic diastolic (congestive) heart failure; N17.9 Acute kidney failure, unspecified; I87.313 Chronic venous hypertension (idiopathic) with ulcer of bilateral lower extremity; Z68.41 Body mass index [BMI] 40.0-44.9, adult; I48.92 Unspecified atrial flutter; L03.115 Cellulitis of right lower limb; L03.116 Cellulitis of left lower limb; N18.30 Chronic kidney disease, stage 3 unspecified; I25.10 Atherosclerotic heart disease of native coronary artery without angina pectoris; E11.22 Type 2 diabetes mellitus with diabetic chronic kidney disease; E11.51 Type 2 diabetes mellitus with diabetic peripheral angiopathy without gangrene; E78.5 Hyperlipidemia, unspecified; E11.65 Type 2 diabetes mellitus with hyperglycemia; E66.01 Morbid (severe) obesity due to excess calories; Z95.5 Presence of coronary angioplasty implant and graft; G47.33 Obstructive sleep apnea (adult) (pediatric); I48.0 Paroxysmal atrial fibrillation; E87.70 Fluid overload, unspecified; R00.1 Bradycardia, unspecified
CPT/HCPCS: 36415; 71045-TC-FY; 76775-TC; 76856-TC; 80048; 80053; 80061; 81003; 82550; 82553; 82570; 82962; 83036; 83615; 83721; 83735; 83880; 84100; 84156; 84484; 85025; 85027; 86337; 87040; 87070; 87086; 87205; 93005; 93010; 93306-TC; 93970-TC; 94660; 97116-GP; 97162-GP; 99285-25; C9803; J1644; U0003; U0005

== ENCOUNTER 2020-06-05 13:03 | Emergency (ER) | payer OTHER, BC ==
[2020-06-05 13:20] VITALS: BP 147/79; PULSE 59; TEMP 98.1; BMI 39.8
[2020-06-05] MEDS ORDERED: ACETAMINOPHEN 500 MG TABLET (FP) PO ONE (14:17)
[2020-06-05] MEDS ORDERED: ACETAMINOPHEN 500 MG TABLET (FP) ONE (14:22)
== END 2020-06-05 15:38 | disposition home or self-care (01) ==
LOC: JERFT 13:03
DX: M54.6 Pain in thoracic spine (principal); M54.5 Low back pain
CPT/HCPCS: 72070-TC-FY; 72100-TC-FY; 73030-TC-RT-FY; 99284-25

== ENCOUNTER 2020-08-07 15:59 | Inpatient (IN) | payer OTHER, BC ==
[2020-08-07] MEDS ORDERED: VANCOMYCIN 1 GM in D5W (PRE-DOCKED) 1,000 MG/250 ML IVPB ONE (18:36)
[2020-08-07] MEDS: PIPERACILLIN/TAZOB 4.5 GM 4.5 GM in DEXTROSE 5%-WATER 100 ML IVPB ONE ×3 (19:00→21:59)
[2020-08-07] MEDS ORDERED: PIPERACILLIN/TAZOB 4.5 GM 4.5 GM/100 ML BAG IVPB ONE (19:03)
[2020-08-07 19:08] LABS: ALBUMIN 3.3 g/dl (3.4-5.0); BLOOD UREA NITROGEN 62.7 mg/dL (7-18); CALCIUM 9.6 mg/dL (8.5-10.1)
[2020-08-07 19:11] LABS: BASO % 0.8 % (0-2.0); EOS % 3.9 % (0-4.5); HEMATOCRIT 41.9 % (35.4-49); HEMOGLOBIN 13.9 GM/dL (11.7-16.9); LYMPH % 11.3 % (8-40); MCHC 33.3 g/dl (32.0-35.9); MEAN PLT VOLUME 9.4 fl (7.5-11.1); MONO % 6.7 % (3.8-10.2); NEUT % 77.3 % (42.8-82.8); PLATELET COUNT 297 10^3/uL (134-434); RBC 5.58 M/mm3 (4.00-5.60); RDW 17.8 % (11.9-15.9)
[2020-08-07 19:12] LABS: CREATININE 1.9 mg/dL (0.55-1.3)
[2020-08-07 19:13] LABS: BILIRUBIN,TOTAL 0.9 mg/dL (0.2-1); TOT PROT 7.9 g/dl (6.4-8.2)
[2020-08-07] MEDS ORDERED: HEPARIN NA (PORCINE) 5,000 UNITS/ML 1ML VIAL SQ SCH (23:45)
[2020-08-08 01:45] VITALS: BMI 38.6
[2020-08-08] MEDS ORDERED: ACETAMINOPHEN 1000 MG/100 ML VIAL (NON FORMULARY) IVPB ONE (02:17)
[2020-08-08] MEDS: INSULIN SLIDING SCALE (NOVOLOG) 1 VIAL SQ SCH ×4 (06:27→21:26)
[2020-08-08] MEDS ORDERED: INSULIN SLIDING SCALE (NOVOLOG) 1 VIAL SQ SCH (07:00)
[2020-08-08 08:18] LABS: BASO % 0.8 % (0-2.0); EOS % 5.4 % (0-4.5); HEMATOCRIT 42.3 % (35.4-49); HEMOGLOBIN 13.9 GM/dL (11.7-16.9); LYMPH % 11.7 % (8-40); MCH 24.5 pg (25.7-33.7); MCHC 32.7 g/dl (32.0-35.9); MEAN CELL VOLUME 74.8 fl (80-96); MEAN PLT VOLUME 9.3 fl (7.5-11.1); MONO % 7.5 % (3.8-10.2); NEUT % 74.6 % (42.8-82.8); PLATELET COUNT 276 10^3/uL (134-434); RBC 5.66 M/mm3 (4.00-5.60); RDW 17.4 % (11.9-15.9); WHITE BLOOD COUNT 7.5 K/mm3 (4.0-10.0)
[2020-08-08 08:33] LABS: ALBUMIN 3.2 g/dl (3.4-5.0)
[2020-08-08 08:35] LABS: TOT PROT 7.5 g/dl (6.4-8.2)
[2020-08-08 08:36] LABS: CALCIUM 9.2 mg/dL (8.5-10.1); CREATININE 1.9 mg/dL (0.55-1.3); MAGNESIUM 2.2 mg/dL (1.8-2.4)
[2020-08-08 08:37] LABS: PHOSPHOROUS 4.8 mg/dL (2.5-4.9)
[2020-08-08 08:43] LABS: BILIRUBIN,TOTAL 0.8 mg/dL (0.2-1)
[2020-08-08] MEDS ORDERED: INSULIN (NOVOLOG) ASPART 100 UNITS/ML 10ML VIAL ONE (09:19)
[2020-08-08] MEDS: CLOPIDOGREL BISULFATE 75 MG TABLET (FP) PO SCH (10:11)
[2020-08-08] MEDS: APIXABAN 5 MG TABLET PO SCH ×2 (10:11→21:26)
[2020-08-08] MEDS: INSULIN (LEVEMIR) 100 UNITS/ML UNITS SQ SCH ×2 (11:18→21:28)
[2020-08-08] MEDS: INSULIN (NOVOLOG) ASPART 100 UNITS/ML 10ML VIAL SQ SCH ×3 (11:19→21:27)
[2020-08-08 11:27] LABS: ERYTHROCYTE SEDIMENTATION RATE 44 mm/hr (0-20)
[2020-08-08] MEDS: traZODone HCL 50 MG TABLET (FP) PO SCH (21:26)
[2020-08-08] MEDS: ATORVASTATIN CA 40 MG TABLET (FP) PO SCH (21:26)
[2020-08-09] MEDS: INSULIN SLIDING SCALE (NOVOLOG) 1 VIAL SQ SCH ×4 (06:00→21:04)
[2020-08-09] MEDS: INSULIN (NOVOLOG) ASPART 100 UNITS/ML 10ML VIAL SQ SCH ×4 (06:00→21:05)
[2020-08-09] MEDS: INSULIN (LEVEMIR) 100 UNITS/ML UNITS SQ SCH ×2 (06:01→21:03)
[2020-08-09 07:16] LABS: BASO % 0.9 % (0-2.0); EOS % 5.4 % (0-4.5); HEMATOCRIT 41.8 % (35.4-49); HEMOGLOBIN 13.7 GM/dL (11.7-16.9); MCH 24.7 pg (25.7-33.7); MCHC 32.7 g/dl (32.0-35.9); MEAN CELL VOLUME 75.4 fl (80-96); MEAN PLT VOLUME 9.1 fl (7.5-11.1); MONO % 8.3 % (3.8-10.2); NEUT % 67.4 % (42.8-82.8); PLATELET COUNT 270 10^3/uL (134-434); RBC 5.54 M/mm3 (4.00-5.60); RDW 17.7 % (11.9-15.9); WHITE BLOOD COUNT 7.8 K/mm3 (4.0-10.0)
[2020-08-09 08:17] LABS: CALCIUM 8.9 mg/dL (8.5-10.1)
[2020-08-09 08:18] LABS: BLOOD UREA NITROGEN 71.4 mg/dL (7-18)
[2020-08-09 08:22] LABS: BILIRUBIN,TOTAL 0.8 mg/dL (0.2-1); TOT PROT 7.2 g/dl (6.4-8.2)
[2020-08-09] MEDS: CLOPIDOGREL BISULFATE 75 MG TABLET (FP) PO SCH (10:23)
[2020-08-09] MEDS: APIXABAN 5 MG TABLET PO SCH ×2 (10:23→21:02)
[2020-08-09] MEDS ORDERED: ACETAMINOPHEN 1000 MG/100 ML VIAL (NON FORMULARY) IVPB ONE (15:20)
[2020-08-09] MEDS: AMPICILLIN NA/SULBACTAM NA 3 GM in SODIUM CHLORIDE 100 ML IVPB SCH (18:21)
[2020-08-09] MEDS: traZODone HCL 50 MG TABLET (FP) PO SCH ×2 (21:02→21:09)
[2020-08-09] MEDS: ATORVASTATIN CA 40 MG TABLET (FP) PO SCH (21:02)
[2020-08-10] MEDS: AMPICILLIN NA/SULBACTAM NA 3 GM in SODIUM CHLORIDE 100 ML IVPB SCH ×3 (01:20→17:02)
[2020-08-10] MEDS: INSULIN (LEVEMIR) 100 UNITS/ML UNITS SQ SCH ×2 (06:14→21:34)
[2020-08-10] MEDS: INSULIN (NOVOLOG) ASPART 100 UNITS/ML 10ML VIAL SQ SCH ×4 (06:15→21:35)
[2020-08-10] MEDS: INSULIN SLIDING SCALE (NOVOLOG) 1 VIAL SQ SCH ×4 (06:15→21:34)
[2020-08-10] MEDS ORDERED: SODIUM CHLORIDE 100 ML IVPB ONE (07:57)
[2020-08-10] MEDS ORDERED: AMPICILLIN NA/SULBACTAM NA 3 GM VIAL ONE (07:57)
[2020-08-10 08:08] LABS: HEMATOCRIT 44.5 % (35.4-49); HEMOGLOBIN 14.8 GM/dL (11.7-16.9); MCH 24.7 pg (25.7-33.7); MCHC 33.3 g/dl (32.0-35.9); MEAN CELL VOLUME 74.3 fl (80-96); MEAN PLT VOLUME 8.4 fl (7.5-11.1); PLATELET COUNT 341 10^3/uL (134-434); RBC 5.99 M/mm3 (4.00-5.60); RDW 17.5 % (11.9-15.9); WHITE BLOOD COUNT 7.6 K/mm3 (4.0-10.0)
[2020-08-10 08:28] LABS: BLOOD UREA NITROGEN 57.4 mg/dL (7-18); CALCIUM 9.7 mg/dL (8.5-10.1)
[2020-08-10 08:31] LABS: CREATININE 1.8 mg/dL (0.55-1.3)
[2020-08-10] MEDS ORDERED: POTASSIUM CHLORIDE TABS 20 MEQ TABLET.ER (FP) PO ONE ×2 (09:06→20:00)
[2020-08-10] MEDS: APIXABAN 5 MG TABLET PO SCH ×2 (09:20→21:36)
[2020-08-10] MEDS: CLOPIDOGREL BISULFATE 75 MG TABLET (FP) PO SCH (09:20)
[2020-08-10] MEDS ORDERED: TORSEMIDE 100 MG TABLET PO SCH (12:00)
[2020-08-10] MEDS ORDERED: ACETAMINOPHEN 1000 MG/100 ML VIAL (NON FORMULARY) IVPB ONE (15:27)
[2020-08-10] MEDS: ATORVASTATIN CA 40 MG TABLET (FP) PO SCH (21:35)
[2020-08-10] MEDS: traZODone HCL 50 MG TABLET (FP) PO SCH (21:40)
[2020-08-11] MEDS ORDERED: AMPICILLIN NA/SULBACTAM NA 3 GM VIAL ONE ×3 (02:17→17:42)
[2020-08-11] MEDS ORDERED: SODIUM CHLORIDE 100 ML IVPB ONE ×3 (02:19→17:43)
[2020-08-11] MEDS: AMPICILLIN NA/SULBACTAM NA 3 GM in SODIUM CHLORIDE 100 ML IVPB SCH ×3 (02:23→17:55)
[2020-08-11] MEDS: TORSEMIDE 100 MG TABLET PO SCH ×2 (05:31→15:30)
[2020-08-11] MEDS: INSULIN SLIDING SCALE (NOVOLOG) 1 VIAL SQ SCH ×4 (06:10→22:03)
[2020-08-11] MEDS: INSULIN (LEVEMIR) 100 UNITS/ML UNITS SQ SCH ×2 (06:11→22:02)
[2020-08-11] MEDS: INSULIN (NOVOLOG) ASPART 100 UNITS/ML 10ML VIAL SQ SCH ×3 (06:11→17:58)
[2020-08-11 07:20] LABS: EOS % 5.4 % (0-4.5); HEMOGLOBIN 14.2 GM/dL (11.7-16.9); LYMPH % 19.7 % (8-40); MCH 24.3 pg (25.7-33.7); MCHC 32.3 g/dl (32.0-35.9); MEAN CELL VOLUME 75.1 fl (80-96); MEAN PLT VOLUME 8.8 fl (7.5-11.1); MONO % 7.6 % (3.8-10.2); NEUT % 66.3 % (42.8-82.8); PLATELET COUNT 338 10^3/uL (134-434); RBC 5.86 M/mm3 (4.00-5.60); RDW 17.2 % (11.9-15.9); WHITE BLOOD COUNT 7.3 K/mm3 (4.0-10.0)
[2020-08-11 07:43] LABS: BLOOD UREA NITROGEN 52.4 mg/dL (7-18); CALCIUM 9.4 mg/dL (8.5-10.1); MAGNESIUM 2.3 mg/dL (1.8-2.4)
[2020-08-11 07:47] LABS: CREATININE 1.6 mg/dL (0.55-1.3)
[2020-08-11] MEDS: CLOPIDOGREL BISULFATE 75 MG TABLET (FP) PO SCH (10:58)
[2020-08-11] MEDS: APIXABAN 5 MG TABLET PO SCH ×2 (10:58→21:30)
[2020-08-11] MEDS ORDERED: INSULIN (NOVOLOG) ASPART 100 UNITS/ML 10ML VIAL SQ SCH (11:33)
[2020-08-11] MEDS: SILVER SULFADIAZINE 1% TOP CREAM 50 GM JAR TP SCH (17:57)
[2020-08-11 21:12] LABS: EPI CELLS 1 /uL (0-25.1); HYALINE CASTS 2 /uL (0-3.1); PH,URINE 5.5 (5.0-8.0); URINE APPEARANCE CLEAR; URINE BACTERIA 1 /uL (0-1359); URINE BILIRUBIN NEGATIVE (NEGATIVE); URINE COLOR YELLOW; URINE GLUCOSE (UA) TRACE (NEGATIVE); URINE KETONE NEGATIVE (NEGATIVE); URINE LEUK ESTERASE NEGATIVE (NEGATIVE); URINE NITRITE NEGATIVE (NEGATIVE); URINE PROTEIN 3+ (NEGATIVE); URINE RBC 9 /uL (0-23.9); URINE UROBILINOGEN 0.2 mg/dL (0.2-1.0); URINE WBC 2 /uL (0-25.8)
[2020-08-11] MEDS: ATORVASTATIN CA 40 MG TABLET (FP) PO SCH (21:30)
[2020-08-11] MEDS: traZODone HCL 50 MG TABLET (FP) PO SCH (21:31)
[2020-08-11] MEDS ORDERED: INSULIN (NOVOLOG) ASPART 100 UNITS/ML 10ML VIAL ONE ×2 (21:40→21:58)
[2020-08-11] MEDS ORDERED: INSULIN (LEVEMIR) 100 UNITS/ML UNITS SQ ONE (21:58)
[2020-08-11] MEDS: ACETAMINOPHEN 325 MG TABLET (FP) PO PRN (23:33)
[2020-08-12] MEDS ORDERED: SODIUM CHLORIDE 100 ML IVPB ONE ×3 (02:20→17:25)
[2020-08-12] MEDS ORDERED: AMPICILLIN NA/SULBACTAM NA 3 GM VIAL ONE ×3 (02:20→17:25)
[2020-08-12] MEDS: AMPICILLIN NA/SULBACTAM NA 3 GM in SODIUM CHLORIDE 100 ML IVPB SCH ×3 (02:36→17:51)
[2020-08-12] MEDS: TORSEMIDE 100 MG TABLET PO SCH ×2 (05:59→15:23)
[2020-08-12] MEDS: INSULIN (LEVEMIR) 100 UNITS/ML UNITS SQ SCH ×2 (06:08→21:15)
[2020-08-12] MEDS: INSULIN (NOVOLOG) ASPART 100 UNITS/ML 10ML VIAL SQ SCH ×3 (06:08→17:58)
[2020-08-12] MEDS: INSULIN SLIDING SCALE (NOVOLOG) 1 VIAL SQ SCH ×4 (06:09→21:13)
[2020-08-12 08:17] LABS: BASO % 0.7 % (0-2.0); EOS % 5.6 % (0-4.5); HEMATOCRIT 40.8 % (35.4-49); HEMOGLOBIN 13.6 GM/dL (11.7-16.9); LYMPH % 18.4 % (8-40); MCHC 33.4 g/dl (32.0-35.9); MEAN CELL VOLUME 74.9 fl (80-96); MEAN PLT VOLUME 8.6 fl (7.5-11.1); MONO % 6.6 % (3.8-10.2); NEUT % 68.7 % (42.8-82.8); PLATELET COUNT 316 10^3/uL (134-434); RBC 5.44 M/mm3 (4.00-5.60); RDW 17.3 % (11.9-15.9); WHITE BLOOD COUNT 7.9 K/mm3 (4.0-10.0)
[2020-08-12 08:34] LABS: ALBUMIN 3.3 g/dl (3.4-5.0); CALCIUM 8.9 mg/dL (8.5-10.1)
[2020-08-12 08:35] LABS: BLOOD UREA NITROGEN 51.2 mg/dL (7-18)
[2020-08-12 08:37] LABS: MAGNESIUM 2.2 mg/dL (1.8-2.4)
[2020-08-12 08:38] LABS: CREATININE 1.6 mg/dL (0.55-1.3); PHOSPHOROUS 3.5 mg/dL (2.5-4.9)
[2020-08-12 08:39] LABS: BILIRUBIN,TOTAL 0.6 mg/dL (0.2-1); TOT PROT 7.6 g/dl (6.4-8.2)
[2020-08-12] MEDS: SILVER SULFADIAZINE 1% TOP CREAM 50 GM JAR TP SCH ×2 (10:39→18:05)
[2020-08-12] MEDS: CLOPIDOGREL BISULFATE 75 MG TABLET (FP) PO SCH (10:39)
[2020-08-12] MEDS: APIXABAN 5 MG TABLET PO SCH ×2 (10:39→21:12)
[2020-08-12] MEDS ORDERED: INSULIN (NOVOLOG) ASPART 100 UNITS/ML 10ML VIAL ONE (20:46)
[2020-08-12] MEDS: ATORVASTATIN CA 40 MG TABLET (FP) PO SCH (21:12)
[2020-08-12] MEDS: traZODone HCL 50 MG TABLET (FP) PO SCH (21:16)
[2020-08-12] MEDS: ACETAMINOPHEN 325 MG TABLET (FP) PO PRN (21:22)
[2020-08-13] MEDS ORDERED: AMPICILLIN NA/SULBACTAM NA 3 GM VIAL ONE ×2 (00:59→08:40)
[2020-08-13] MEDS ORDERED: SODIUM CHLORIDE 100 ML IVPB ONE ×2 (00:59→08:41)
[2020-08-13] MEDS: AMPICILLIN NA/SULBACTAM NA 3 GM in SODIUM CHLORIDE 100 ML IVPB SCH ×3 (01:07→09:36)
[2020-08-13] MEDS: TORSEMIDE 100 MG TABLET PO SCH ×2 (06:15→13:31)
[2020-08-13] MEDS: INSULIN (LEVEMIR) 100 UNITS/ML UNITS SQ SCH (06:16)
[2020-08-13] MEDS: INSULIN (NOVOLOG) ASPART 100 UNITS/ML 10ML VIAL SQ SCH ×2 (06:17→11:32)
[2020-08-13] MEDS: INSULIN SLIDING SCALE (NOVOLOG) 1 VIAL SQ SCH ×2 (06:17→11:32)
[2020-08-13 07:49] LABS: BASO % 0.9 % (0-2.0); EOS % 5.8 % (0-4.5); HEMATOCRIT 40.3 % (35.4-49); HEMOGLOBIN 13.2 GM/dL (11.7-16.9); LYMPH % 17.4 % (8-40); MCH 24.7 pg (25.7-33.7); MCHC 32.9 g/dl (32.0-35.9); MEAN CELL VOLUME 75.2 fl (80-96); MEAN PLT VOLUME 8.7 fl (7.5-11.1); MONO % 6.1 % (3.8-10.2); NEUT % 69.8 % (42.8-82.8); PLATELET COUNT 292 10^3/uL (134-434); RBC 5.35 M/mm3 (4.00-5.60); RDW 17.4 % (11.9-15.9); WHITE BLOOD COUNT 8.1 K/mm3 (4.0-10.0)
[2020-08-13 08:13] LABS: ALBUMIN 3.2 g/dl (3.4-5.0); CALCIUM 9.2 mg/dL (8.5-10.1)
[2020-08-13 08:14] LABS: BLOOD UREA NITROGEN 46.6 mg/dL (7-18); MAGNESIUM 2.3 mg/dL (1.8-2.4)
[2020-08-13 08:17] LABS: CREATININE 1.7 mg/dL (0.55-1.3); PHOSPHOROUS 3.5 mg/dL (2.5-4.9)
[2020-08-13 08:18] LABS: BILIRUBIN,TOTAL 0.6 mg/dL (0.2-1); TOT PROT 7.4 g/dl (6.4-8.2)
[2020-08-13] MEDS: APIXABAN 5 MG TABLET PO SCH (09:36)
[2020-08-13] MEDS: CLOPIDOGREL BISULFATE 75 MG TABLET (FP) PO SCH (09:36)
[2020-08-13] MEDS: SILVER SULFADIAZINE 1% TOP CREAM 50 GM JAR TP SCH (09:40)
[2020-08-13] MEDS: ACETAMINOPHEN 325 MG TABLET (FP) PO PRN (10:48)
[2020-08-13 14:41] VITALS: BP 141/74; PULSE 78; TEMP 97.6
== END 2020-08-13 16:25 | DRG 603 ==
LOC: JER 15:59 → JERBED 22:09 → J7W 08-08 00:52
PROVIDERS: ADMIT Internal Medicine; ATTEND Internal Medicine
DX: L03.116 Cellulitis of left lower limb (principal); I13.0 Hypertensive heart and chronic kidney disease with heart failure and stage 1 through stage 4 chronic kidney disease, or unspecified chronic kidney disease; I50.30 Unspecified diastolic (congestive) heart failure; L97.919 Non-pressure chronic ulcer of unspecified part of right lower leg with unspecified severity; E87.70 Fluid overload, unspecified; L03.115 Cellulitis of right lower limb; E11.42 Type 2 diabetes mellitus with diabetic polyneuropathy; I25.10 Atherosclerotic heart disease of native coronary artery without angina pectoris; N18.30 Chronic kidney disease, stage 3 unspecified; E11.65 Type 2 diabetes mellitus with hyperglycemia; E11.51 Type 2 diabetes mellitus with diabetic peripheral angiopathy without gangrene; E78.5 Hyperlipidemia, unspecified; E66.9 Obesity, unspecified; Z68.38 Body mass index [BMI] 38.0-38.9, adult; Z98.61 Coronary angioplasty status
CPT/HCPCS: 36415; 73590-TC-LT-FY; 73590-TC-RT-FY; 73630-TC-LT; 73718-TC-LT; 73718-TC-RT; 80048; 80053; 81003; 82962; 83036; 83540; 83550; 83735; 84100; 85025; 85027; 85651; 86140; 87040; 87070; 87186; 87205; 93005; 93010; 94660; 97116-GP; 97161-GP; 99285-25; C9803; G0463-25; J0131; U0003; U0005

== ENCOUNTER 2021-05-14 15:23 | Observation (INO) | payer OTHER, BC ==
[2021-05-14] MEDS ORDERED: SODIUM CHLORIDE 1,000 ML IV STA (16:51)
[2021-05-14 17:45] LABS: VENOUS BASE EXCESS -1.4 mmol/L (-2-2); VENOUS O2 SATURATION 82.8 % (70-80); VENOUS PCO2 41.2 mmHg (38-52); VENOUS PH 7.378 (7.310-7.410)
[2021-05-14 17:46] LABS: BASO % 0.7 % (0-2.0); EOS % 3.3 % (0-4.5); HEMOGLOBIN 13.8 GM/dL (11.7-16.9); LYMPH % 10.5 % (8-40); MCH 25.5 pg (25.7-33.7); MCHC 32.9 g/dl (32.0-35.9); MEAN CELL VOLUME 77.6 fl (80-96); MEAN PLT VOLUME 9.3 fl (7.5-11.1); MONO % 5.6 % (3.8-10.2); NEUT % 79.9 % (42.8-82.8); PLATELET COUNT 297 10^3/uL (134-434); RBC 5.41 M/mm3 (4.00-5.60); RDW 16.6 % (11.9-15.9); WHITE BLOOD COUNT 9.1 K/mm3 (4.0-10.0)
[2021-05-14 18:04] LABS: CHLORIDE 89 mmol/L (98-107); SODIUM 128 mmol/L (136-145)
[2021-05-14 18:06] LABS: ALBUMIN 3.2 g/dl (3.4-5.0); ANION GAP 16 MMOL/L (8-16); CALCIUM 8.9 mg/dL (8.5-10.1); CO2 23 mmol/L (21-32); MAGNESIUM 2.2 mg/dL (1.8-2.4)
[2021-05-14 18:10] LABS: CREATININE 2.4 mg/dL (0.55-1.3); PHOSPHOROUS 4.3 mg/dL (2.5-4.9); SGOT/AST 19 U/L (15-37); SGPT/ALT 24 U/L (13-61)
[2021-05-14 18:12] LABS: BILIRUBIN,TOTAL 0.4 mg/dL (0.2-1); TOT PROT 7.8 g/dl (6.4-8.2)
[2021-05-14 18:13] LABS: ALK PHOS 88 U/L (45-117)
[2021-05-14 18:18] LABS: GLUCOSE,RANDOM 662 mg/dL (74-106)
[2021-05-14] MEDS ORDERED: INSULIN REGULAR HUMAN 100 UNITS/ML *VIAL SQ ONE (18:22)
[2021-05-14] MEDS ORDERED: SODIUM CHLORIDE 0.9% 500 ML INFUS.BAG IV ONE ×2 (18:23→19:56)
[2021-05-14] MEDS ORDERED: POTASSIUM CHLORIDE ORAL LIQUID 20 MEQ/15 ML PO ONE (19:09)
[2021-05-14] MEDS ORDERED: POTASSIUM CHLORIDE ORAL LIQUID 20 MEQ/15 ML ONE (19:49)
[2021-05-14 20:05] LABS: EPI CELLS 0 /uL (0-25.1); HYALINE CASTS 0 /uL (0-3.1); PH,URINE 5.5 (5.0-8.0); URINE APPEARANCE CLEAR; URINE BACTERIA 0 /uL (0-1359); URINE BILIRUBIN NEGATIVE (NEGATIVE); URINE COLOR YELLOW; URINE GLUCOSE (UA) 3+ (NEGATIVE); URINE KETONE NEGATIVE (NEGATIVE); URINE LEUK ESTERASE NEGATIVE (NEGATIVE); URINE NITRITE NEGATIVE (NEGATIVE); URINE PROTEIN 2+ (NEGATIVE); URINE RBC 6 /uL (0-23.9); URINE UROBILINOGEN 0.2 mg/dL (0.2-1.0); URINE WBC 1 /uL (0-25.8)
[2021-05-14] MEDS ORDERED: MAGNESIUM SULF 50% (8.12 MEQ/2 ML-1 GM VIAL) IVPB ONE (22:04)
[2021-05-14 22:10] LABS: CHLORIDE 94 mmol/L (98-107); SODIUM 131 mmol/L (136-145)
[2021-05-14 22:12] LABS: ANION GAP 13 MMOL/L (8-16); BLOOD UREA NITROGEN 90.9 mg/dL (7-18); CALCIUM 8.7 mg/dL (8.5-10.1); CO2 23 mmol/L (21-32)
[2021-05-14 22:15] LABS: CREATININE 2.1 mg/dL (0.55-1.3)
[2021-05-14] MEDS ORDERED: MAGNESIUM SULFATE IN WATER 2 GM/50 ML IVPB IVPB ONE (22:25)
[2021-05-14 23:01] LABS: GLUCOSE,RANDOM 496 mg/dL (74-106)
[2021-05-14] MEDS ORDERED: POTASSIUM CHLORIDE 10 MEQ PREMIX IVPB (POTASSIUM RIDER) IVPB SCH (23:45)
[2021-05-15] MEDS ORDERED: INSULIN (NOVOLOG) ASPART 100 UNITS/ML 10ML VIAL SQ ONE (00:14)
[2021-05-15] MEDS ORDERED: KCL 10 MEQ IVPB 10 MEQ/100 ML INFUS.BAG IVPB ONE ×3 (01:27→04:15)
[2021-05-15] MEDS ORDERED: APIXABAN 5 MG TABLET ONE (01:31)
[2021-05-15] MEDS ORDERED: DEXTROSE 50%-WATER - 25 GM/50 ML VIAL IVPUSH PRN (01:42)
[2021-05-15] MEDS: SODIUM CHLORIDE 1,000 ML IV SCH ×2 (01:53→10:15)
[2021-05-15] MEDS: APIXABAN 5 MG TABLET PO SCH ×3 (01:53→21:07)
[2021-05-15] MEDS ORDERED: POTASSIUM CHLORIDE 10 MEQ PREMIX IVPB (POTASSIUM RIDER) IVPB SCH ×2 (02:27→04:00)
[2021-05-15] MEDS ORDERED: KCL 10 MEQ IVPB 10 MEQ/100 ML INFUS.BAG IVPB SCH (04:00)
[2021-05-15 06:15] LABS: BLOOD UREA NITROGEN 85.6 mg/dL (7-18); CALCIUM 8.3 mg/dL (8.5-10.1)
[2021-05-15] MEDS: INSULIN SLIDING SCALE (NOVOLOG) 1 VIAL SQ SCH ×4 (06:41→21:08)
[2021-05-15] MEDS: ISOSORBIDE MONONITRATE 30 MG TAB.SR.24H (FP) PO SCH (10:11)
[2021-05-15] MEDS: CLOPIDOGREL BISULFATE 75 MG TABLET (FP) PO SCH (10:11)
[2021-05-15] MEDS: LOSARTAN POTASSIUM 25 MG TABLET PO SCH (10:11)
[2021-05-15] MEDS: POTASSIUM CHLORIDE ORAL LIQUID 20 MEQ/15 ML PO SCH ×2 (10:11→21:10)
[2021-05-15] MEDS: INSULIN (LEVEMIR) 100 UNITS/ML UNITS SQ SCH ×2 (10:16→21:07)
[2021-05-15 10:29] LABS: HEMATOCRIT 36.9 % (35.4-49); HEMOGLOBIN 12.5 GM/dL (11.7-16.9); MCH 25.7 pg (25.7-33.7); MCHC 33.8 g/dl (32.0-35.9); MEAN CELL VOLUME 76.2 fl (80-96); MEAN PLT VOLUME 8.8 fl (7.5-11.1); PLATELET COUNT 250 10^3/uL (134-434); RBC 4.85 M/mm3 (4.00-5.60); RDW 16.9 % (11.9-15.9); WHITE BLOOD COUNT 9.6 K/mm3 (4.0-10.0)
[2021-05-15 10:54] LABS: ALBUMIN 2.8 g/dl (3.4-5.0); BLOOD UREA NITROGEN 78.5 mg/dL (7-18); CALCIUM 8.4 mg/dL (8.5-10.1); MAGNESIUM 2.3 mg/dL (1.8-2.4)
[2021-05-15 10:58] LABS: CREATININE 1.8 mg/dL (0.55-1.3); PHOSPHOROUS 3.3 mg/dL (2.5-4.9)
[2021-05-15 10:59] LABS: BILIRUBIN,TOTAL 0.5 mg/dL (0.2-1)
[2021-05-15] MEDS ORDERED: INSULIN (NOVOLOG) ASPART 100 UNITS/ML 10ML VIAL ONE (20:44)
[2021-05-15] MEDS: ATORVASTATIN CA 40 MG TABLET (FP) PO SCH (21:09)
[2021-05-16] MEDS: SODIUM CHLORIDE 1,000 ML IV SCH (05:00)
[2021-05-16] MEDS: INSULIN (LEVEMIR) 100 UNITS/ML UNITS SQ SCH ×2 (06:47→21:31)
[2021-05-16] MEDS: INSULIN SLIDING SCALE (NOVOLOG) 1 VIAL SQ SCH ×4 (06:48→21:30)
[2021-05-16] MEDS: LOSARTAN POTASSIUM 25 MG TABLET PO SCH (09:47)
[2021-05-16] MEDS: CLOPIDOGREL BISULFATE 75 MG TABLET (FP) PO SCH (09:47)
[2021-05-16] MEDS: ISOSORBIDE MONONITRATE 30 MG TAB.SR.24H (FP) PO SCH (09:47)
[2021-05-16] MEDS: APIXABAN 5 MG TABLET PO SCH ×2 (09:47→21:26)
[2021-05-16 10:03] LABS: BASO % 0.8 % (0-2.0); EOS % 6.3 % (0-4.5); HEMATOCRIT 37.8 % (35.4-49); HEMOGLOBIN 12.5 GM/dL (11.7-16.9); MCH 25.5 pg (25.7-33.7); MEAN CELL VOLUME 77.2 fl (80-96); MEAN PLT VOLUME 8.8 fl (7.5-11.1); MONO % 6.5 % (3.8-10.2); NEUT % 69.4 % (42.8-82.8); PLATELET COUNT 194 10^3/uL (134-434); RDW 16.8 % (11.9-15.9); WHITE BLOOD COUNT 6.3 K/mm3 (4.0-10.0)
[2021-05-16 10:24] LABS: ALBUMIN 2.8 g/dl (3.4-5.0); MAGNESIUM 2.2 mg/dL (1.8-2.4)
[2021-05-16 10:28] LABS: CREATININE 1.8 mg/dL (0.55-1.3)
[2021-05-16 10:29] LABS: BILIRUBIN,TOTAL 0.5 mg/dL (0.2-1); TOT PROT 6.9 g/dl (6.4-8.2)
[2021-05-16 12:25] VITALS: BMI 39.4
[2021-05-16] MEDS: FLUTICASONE PROP 0.05% 16 GM NASAL SPRAY NS SCH (21:26)
[2021-05-16] MEDS: ATORVASTATIN CA 40 MG TABLET (FP) PO SCH (21:26)
[2021-05-17] MEDS: INSULIN (LEVEMIR) 100 UNITS/ML UNITS SQ SCH (06:12)
[2021-05-17] MEDS: INSULIN SLIDING SCALE (NOVOLOG) 1 VIAL SQ SCH ×2 (06:12→11:56)
[2021-05-17 08:25] VITALS: BP 128/68; PULSE 68; TEMP 97.8
[2021-05-17] MEDS: FLUTICASONE PROP 0.05% 16 GM NASAL SPRAY NS SCH (09:45)
[2021-05-17] MEDS: CLOPIDOGREL BISULFATE 75 MG TABLET (FP) PO SCH (09:46)
[2021-05-17] MEDS: APIXABAN 5 MG TABLET PO SCH (09:46)
[2021-05-17] MEDS: ISOSORBIDE MONONITRATE 30 MG TAB.SR.24H (FP) PO SCH (09:46)
[2021-05-17] MEDS: LOSARTAN POTASSIUM 25 MG TABLET PO SCH (09:46)
[2021-05-17] MEDS ORDERED: SPIRONOLACTONE 25 MG TABLET PO SCH (10:00)
[2021-05-17] MEDS ORDERED: TORSEMIDE 100 MG TABLET PO SCH ×2 (10:00→22:00)
[2021-05-17] MEDS ORDERED: PETROLATUM, WHITE 30 GM TUBE TP SCH (11:30)
[2021-05-17] MEDS ORDERED: SILVER SULFADIAZINE 1% TOP CREAM 50 GM JAR TP SCH (11:30)
== END 2021-05-17 16:10 | disposition home or self-care (01) ==
LOC: JER 15:23 → JERBED 20:41 → J6S 05-15 05:56
PROVIDERS: ADMIT Internal Medicine; ATTEND Nurse Practitioner Acute Care
PROC: 3E013VG Introduction of Insulin into Subcutaneous Tissue, Percutaneous Approach (ICD-10-PCS; principal; 2021-05-14)
PROC: 3E033GC Introduction of Other Therapeutic Substance into Peripheral Vein, Percutaneous Approach (ICD-10-PCS; 2021-05-14)
PROC: 3E0337Z Introduction of Electrolytic and Water Balance Substance into Peripheral Vein, Percutaneous Approach (ICD-10-PCS; 2021-05-14)
DX: E86.0 Dehydration (principal); I13.0 Hypertensive heart and chronic kidney disease with heart failure and stage 1 through stage 4 chronic kidney disease, or unspecified chronic kidney disease; E11.22 Type 2 diabetes mellitus with diabetic chronic kidney disease; I50.30 Unspecified diastolic (congestive) heart failure; I73.9 Peripheral vascular disease, unspecified; E66.9 Obesity, unspecified; Z68.39 Body mass index [BMI] 39.0-39.9, adult; M86.9 Osteomyelitis, unspecified; I48.92 Unspecified atrial flutter; Z79.01 Long term (current) use of anticoagulants; Z89.431 Acquired absence of right foot; Z89.422 Acquired absence of other left toe(s); N18.9 Chronic kidney disease, unspecified; Z95.5 Presence of coronary angioplasty implant and graft; Z79.4 Long term (current) use of insulin
CPT/HCPCS: 36415; 76775-TC; 80048; 80053; 81003; 82010; 82803; 82962; 83605; 83735; 84100; 85025; 85027; 87086; 93005; 93010; 94660; 96361; 96365; 96372; 96375; 96376; 99285-25; C9803-CS; G0378; U0003; U0005

== ENCOUNTER 2022-05-02 15:42 | Observation (INO) | payer OTHER, BC ==
[2022-05-02] MEDS ORDERED: ACETAMINOPHEN 500 MG TABLET (FP) PO ONE (16:21)
[2022-05-02] MEDS ORDERED: ACETAMINOPHEN 325 MG TABLET (FP) ONE ×2 (16:28→21:13)
[2022-05-02 17:51] LABS: BASO % 0.8 % (0-2.0); EOS % 3.6 % (0-4.5); HEMATOCRIT 37.5 % (35.4-49); HEMOGLOBIN 12.2 GM/dL (11.7-16.9); MCH 24.5 pg (25.7-33.7); MCHC 32.6 g/dl (32.0-35.9); MEAN CELL VOLUME 75.2 fl (80-96); MEAN PLT VOLUME 7.8 fl (7.5-11.1); MONO % 6.8 % (3.8-10.2); NEUT % 81.8 % (42.8-82.8); PLATELET COUNT 330 10^3/uL (134-434); RBC 4.98 M/mm3 (4.00-5.60); RDW 20.4 % (11.9-15.9); WHITE BLOOD COUNT 11.5 K/mm3 (4.0-10.0)
[2022-05-02 17:59] LABS: INR 2.04 (0.83-1.09); PROTHROMBIN TIME (PATIENT) 23.5 SEC (9.7-13.0)
[2022-05-02 18:11] LABS: CALCIUM 9.7 mg/dL (8.5-10.1)
[2022-05-02 18:12] LABS: ALBUMIN 3.6 g/dl (3.4-5.0)
[2022-05-02 18:15] LABS: CREATININE 2.7 mg/dL (0.55-1.3)
[2022-05-02 18:16] LABS: BILIRUBIN,TOTAL 0.4 mg/dL (0.2-1); TOT PROT 8.2 g/dl (6.4-8.2)
[2022-05-02] MEDS ORDERED: DIPHTH,PERTUSS(ACELL),TET 0.5 ML DISP.SYRIN IM ONE ×2 (19:15→20:40)
[2022-05-02] MEDS ORDERED: BACITRACIN ZINC 15 GM TUBE TOPICAL OINTMENT ONE (20:14)
[2022-05-02] MEDS ORDERED: POTASSIUM CHLORIDE ORAL LIQUID 20 MEQ/15 ML ONE (20:41)
[2022-05-02] MEDS ORDERED: SODIUM CHLORIDE 1,000 ML IV SCH (20:45)
[2022-05-02] MEDS: POTASSIUM CHLORIDE TABS 20 MEQ TABLET.ER (FP) PO SCH (21:05)
[2022-05-02] MEDS ORDERED: APIXABAN 5 MG TABLET ONE (21:12)
[2022-05-02] MEDS: INSULIN SLIDING SCALE (NOVOLOG) 1 VIAL SQ SCH (21:17)
[2022-05-02] MEDS: APIXABAN 5 MG TABLET PO SCH (21:17)
[2022-05-02] MEDS: ACETAMINOPHEN 500 MG TABLET (FP) PO PRN (21:18)
[2022-05-02 21:29] LABS: EPI CELLS 4 /uL (0-25.1); HYALINE CASTS 0 /uL (0-3.1); URINE APPEARANCE CLEAR; URINE BACTERIA 3 /uL (0-1359); URINE BILIRUBIN NEGATIVE (NEGATIVE); URINE COLOR YELLOW; URINE GLUCOSE (UA) 2+ (NEGATIVE); URINE KETONE NEGATIVE (NEGATIVE); URINE LEUK ESTERASE NEGATIVE (NEGATIVE); URINE NITRITE NEGATIVE (NEGATIVE); URINE PROTEIN 2+ (NEGATIVE); URINE RBC 14 /uL (0-23.9); URINE UROBILINOGEN 0.2 mg/dL (0.2-1.0); URINE WBC 1 /uL (0-25.8)
[2022-05-03] MEDS: INSULIN SLIDING SCALE (NOVOLOG) 1 VIAL SQ SCH ×4 (06:49→22:01)
[2022-05-03] MEDS ORDERED: PATIENT'S OWN MEDICATION (NON-FORMULARY) (Empagliflozin [Jardiance] 10 MG Tablet) PO SCH (10:00)
[2022-05-03] MEDS ORDERED: ROSUVASTATIN CA 40 MG TABLET PO SCH (10:00)
[2022-05-03 10:02] LABS: BASO % 0.8 % (0-2.0); EOS % 4.2 % (0-4.5); HEMATOCRIT 36.9 % (35.4-49); HEMOGLOBIN 12.5 GM/dL (11.7-16.9); LYMPH % 7.6 % (8-40); MCH 25.3 pg (25.7-33.7); MCHC 33.7 g/dl (32.0-35.9); MEAN CELL VOLUME 75.1 fl (80-96); MEAN PLT VOLUME 8.6 fl (7.5-11.1); MONO % 6.4 % (3.8-10.2); PLATELET COUNT 315 10^3/uL (134-434); RBC 4.92 M/mm3 (4.00-5.60); RDW 20.1 % (11.9-15.9); WHITE BLOOD COUNT 10.9 K/mm3 (4.0-10.0)
[2022-05-03 10:20] LABS: CHLORIDE 93 mmol/L (98-107); SODIUM 132 mmol/L (136-145)
[2022-05-03] MEDS: AMIODARONE HCL 200 MG TABLET PO SCH (10:21)
[2022-05-03] MEDS: ISOSORBIDE MONONITRATE 30 MG TAB.SR.24H (FP) PO SCH (10:21)
[2022-05-03] MEDS: APIXABAN 5 MG TABLET PO SCH ×2 (10:21→21:42)
[2022-05-03] MEDS: CLOPIDOGREL BISULFATE 75 MG TABLET (FP) PO SCH (10:22)
[2022-05-03] MEDS: POTASSIUM CHLORIDE TABS 20 MEQ TABLET.ER (FP) PO SCH (10:22)
[2022-05-03 10:27] LABS: ANION GAP 13 MMOL/L (8-16); CALCIUM 9.6 mg/dL (8.5-10.1); CO2 26 mmol/L (21-32); GLUCOSE,RANDOM 326 mg/dL (74-106); MAGNESIUM 2.2 mg/dL (1.8-2.4)
[2022-05-03 10:29] LABS: ALBUMIN 3.6 g/dl (3.4-5.0)
[2022-05-03 10:30] LABS: CREATININE 3.2 mg/dL (0.55-1.3); PHOSPHOROUS 4.9 mg/dL (2.5-4.9); SGPT/ALT 25 U/L (13-61)
[2022-05-03 10:31] LABS: SGOT/AST 23 U/L (15-37)
[2022-05-03 10:32] LABS: BILIRUBIN,TOTAL 0.6 mg/dL (0.2-1); TOT PROT 8.3 g/dl (6.4-8.2)
[2022-05-03 10:33] LABS: ALK PHOS 75 U/L (45-117)
[2022-05-03 10:34] LABS: BLOOD UREA NITROGEN 104.5 mg/dL (7-18)
[2022-05-03] MEDS ORDERED: SODIUM CHLORIDE 0.45% 1,000 ML IV SCH (11:45)
[2022-05-03] MEDS ORDERED: INSULIN (NOVOLOG) ASPART 100 UNITS/ML 10ML VIAL ONE ×3 (11:52→21:50)
[2022-05-03] MEDS: INSULIN (NOVOLOG) ASPART 100 UNITS/ML 10ML VIAL SQ SCH (16:43)
[2022-05-03] MEDS: ACETAMINOPHEN 500 MG TABLET (FP) PO PRN (21:41)
[2022-05-03] MEDS: ROSUVASTATIN CA 20 MG TABLET PO SCH (21:42)
[2022-05-03] MEDS ORDERED: INSULIN (LEVEMIR) 100 UNITS/ML UNITS SQ SCH (22:00)
[2022-05-04 04:01] VITALS: RESP 18
[2022-05-04] MEDS: INSULIN (NOVOLOG) ASPART 100 UNITS/ML 10ML VIAL SQ SCH ×3 (06:12→17:46)
[2022-05-04] MEDS: INSULIN SLIDING SCALE (NOVOLOG) 1 VIAL SQ SCH ×4 (06:13→21:59)
[2022-05-04 08:52] LABS: EOS % 5.7 % (0-4.5); HEMATOCRIT 35.8 % (35.4-49); HEMOGLOBIN 12.2 GM/dL (11.7-16.9); LYMPH % 8.3 % (8-40); MCH 25.5 pg (25.7-33.7); MEAN PLT VOLUME 7.8 fl (7.5-11.1); MONO % 5.9 % (3.8-10.2); NEUT % 79.1 % (42.8-82.8); PLATELET COUNT 278 10^3/uL (134-434); RBC 4.77 M/mm3 (4.00-5.60); RDW 20.2 % (11.9-15.9); WHITE BLOOD COUNT 9.3 K/mm3 (4.0-10.0)
[2022-05-04] MEDS: APIXABAN 5 MG TABLET PO SCH ×2 (09:14→21:47)
[2022-05-04] MEDS: AMIODARONE HCL 200 MG TABLET PO SCH (09:14)
[2022-05-04] MEDS: INSULIN (LEVEMIR) 100 UNITS/ML UNITS SQ SCH ×2 (09:14→21:47)
[2022-05-04] MEDS: ISOSORBIDE MONONITRATE 30 MG TAB.SR.24H (FP) PO SCH (09:14)
[2022-05-04] MEDS: CLOPIDOGREL BISULFATE 75 MG TABLET (FP) PO SCH (09:14)
[2022-05-04] MEDS: traMADol HCL 50 MG TABLET PO PRN (09:22)
[2022-05-04 09:24] LABS: ALBUMIN 3.4 g/dl (3.4-5.0); BLOOD UREA NITROGEN 99.2 mg/dL (7-18); CALCIUM 9.6 mg/dL (8.5-10.1); MAGNESIUM 2.4 mg/dL (1.8-2.4)
[2022-05-04 09:28] LABS: CREATININE 2.9 mg/dL (0.55-1.3); PHOSPHOROUS 5.7 mg/dL (2.5-4.9)
[2022-05-04 09:29] LABS: BILIRUBIN,TOTAL 0.5 mg/dL (0.2-1); TOT PROT 7.9 g/dl (6.4-8.2)
[2022-05-04] MEDS: ROSUVASTATIN CA 20 MG TABLET PO SCH (21:47)
[2022-05-05] MEDS: INSULIN (NOVOLOG) ASPART 100 UNITS/ML 10ML VIAL SQ SCH ×2 (06:01→11:55)
[2022-05-05] MEDS: INSULIN (LEVEMIR) 100 UNITS/ML UNITS SQ SCH (06:01)
[2022-05-05] MEDS: INSULIN SLIDING SCALE (NOVOLOG) 1 VIAL SQ SCH ×2 (06:01→11:54)
[2022-05-05] MEDS: ISOSORBIDE MONONITRATE 30 MG TAB.SR.24H (FP) PO SCH (09:06)
[2022-05-05] MEDS: AMIODARONE HCL 200 MG TABLET PO SCH (09:07)
[2022-05-05] MEDS: CLOPIDOGREL BISULFATE 75 MG TABLET (FP) PO SCH (09:07)
[2022-05-05] MEDS: APIXABAN 5 MG TABLET PO SCH (09:07)
[2022-05-05] MEDS: traMADol HCL 50 MG TABLET PO PRN (09:07)
[2022-05-05 10:24] LABS: BASO % 0.6 % (0-2.0); EOS % 4.6 % (0-4.5); HEMATOCRIT 35.1 % (35.4-49); HEMOGLOBIN 11.8 GM/dL (11.7-16.9); LYMPH % 4.9 % (8-40); MCH 25.3 pg (25.7-33.7); MCHC 33.7 g/dl (32.0-35.9); MEAN CELL VOLUME 75.2 fl (80-96); MEAN PLT VOLUME 8.5 fl (7.5-11.1); MONO % 5.4 % (3.8-10.2); NEUT % 84.5 % (42.8-82.8); PLATELET COUNT 282 10^3/uL (134-434); RBC 4.66 M/mm3 (4.00-5.60); WHITE BLOOD COUNT 12.3 K/mm3 (4.0-10.0)
[2022-05-05 10:44] LABS: CALCIUM 9.3 mg/dL (8.5-10.1)
[2022-05-05 10:45] LABS: ALBUMIN 3.2 g/dl (3.4-5.0); MAGNESIUM 2.5 mg/dL (1.8-2.4)
[2022-05-05 10:47] LABS: BLOOD UREA NITROGEN 95.3 mg/dL (7-18)
[2022-05-05 10:49] LABS: TOT PROT 7.8 g/dl (6.4-8.2)
[2022-05-05 10:50] LABS: CREATININE 2.6 mg/dL (0.55-1.3); PHOSPHOROUS 5.1 mg/dL (2.5-4.9)
[2022-05-05 10:52] LABS: BILIRUBIN,TOTAL 0.5 mg/dL (0.2-1)
[2022-05-05 11:49] VITALS: BMI 38.7
[2022-05-05 13:56] VITALS: BP 144/70; PULSE 61; TEMP 97.3
== END 2022-05-05 16:15 | disposition home or self-care (01) ==
LOC: JER 15:42 → JERBED 19:57 → J6S 05-03 02:28
PROVIDERS: ADMIT Internal Medicine; ATTEND Internal Medicine
PROC: 3E0234Z Introduction of Serum, Toxoid and Vaccine into Muscle, Percutaneous Approach (ICD-10-PCS; principal; 2022-05-02)
PROC: 3E013VG Introduction of Insulin into Subcutaneous Tissue, Percutaneous Approach (ICD-10-PCS; 2022-05-02)
PROC: 3E033NZ Introduction of Analgesics, Hypnotics, Sedatives into Peripheral Vein, Percutaneous Approach (ICD-10-PCS; 2022-05-02)
DX: M25.531 Pain in right wrist (principal); V43.52XA Car driver injured in collision with other type car in traffic accident, initial encounter; Y93.89 Activity, other specified; Y92.410 Unspecified street and highway as the place of occurrence of the external cause; I73.9 Peripheral vascular disease, unspecified; I25.10 Atherosclerotic heart disease of native coronary artery without angina pectoris; M86.9 Osteomyelitis, unspecified; N17.9 Acute kidney failure, unspecified; E78.5 Hyperlipidemia, unspecified; Z87.891 Personal history of nicotine dependence; E66.8 Other obesity; Z68.38 Body mass index [BMI] 38.0-38.9, adult; I48.92 Unspecified atrial flutter; G47.33 Obstructive sleep apnea (adult) (pediatric); Z79.01 Long term (current) use of anticoagulants; E11.22 Type 2 diabetes mellitus with diabetic chronic kidney disease; I12.9 Hypertensive chronic kidney disease with stage 1 through stage 4 chronic kidney disease, or unspecified chronic kidney disease; N18.9 Chronic kidney disease, unspecified; Z89.431 Acquired absence of right foot
CPT/HCPCS: 0241U-QW; 36415; 70450-TC; 71250-TC; 72125-TC; 73030-TC-RT-FY; 73070-TC-RT-FY; 73090-TC-LT-FY; 73110-TC-RT-FY; 73130-TC-RT-FY; 73140-TC-LT-FY; 76775-TC; 76856-TC; 80053; 81003; 82550; 82570; 82962; 83036; 83735; 84100; 84156; 84300; 84443; 84484; 85025; 85610; 85730; 87086; 90715; 93005; 93010; 94660; 99285-25; G0378

== ENCOUNTER 2022-05-08 22:28 | Inpatient (IN) | payer OTHER, BC ==
[2022-05-08] MEDS ORDERED: ACETAMINOPHEN 1000 MG/100 ML BAG IVPB ONE (22:56)
[2022-05-08] MEDS ORDERED: SODIUM CHLORIDE 0.9% 500 ML INFUS.BAG IV ONE (22:57)
[2022-05-08] MEDS ORDERED: VANCOMYCIN 1 GM in D5W (PRE-DOCKED) 1,000 MG/250 ML IVPB ONE (23:00)
[2022-05-08] MEDS ORDERED: PIPERACILLIN/TAZOB 4.5 GM 4.5 GM in DEXTROSE 5%-WATER 100 ML IVPB ONE (23:01)
[2022-05-08] MEDS ORDERED: CLINDAMYCIN 600MG PREMIX IVPB 600 MG/50 ML BAG IVPB ONE (23:02)
[2022-05-09] MEDS ORDERED: morphine CARPU-JECT 4 MG/1 ML DISP.SYRIN IVPUSH ONE (00:15)
[2022-05-09] MEDS ORDERED: ACETAMINOPHEN INJECTION 100 ML IVPB ONE (00:19)
[2022-05-09] MEDS ORDERED: PIPERACILLIN/TAZOB 4.5 GM 4.5 GM/100 ML BAG IVPB ONE (00:20)
[2022-05-09] MEDS ORDERED: VANCOMYCIN/WATER FOR INJ (PEG) 1,000 MG/200 ML BAG IVPB ONE ×3 (00:20→10:55)
[2022-05-09] MEDS ORDERED: CLINDAMYCIN 600MG PREMIX IVPB 0 MG/0 ML BAG IVPB ONE (00:21)
[2022-05-09 00:26] LABS: VENOUS BASE EXCESS -6.2 mmol/L (-2-2); VENOUS O2 SATURATION 81.5 % (70-80); VENOUS PCO2 31.7 mmHg (38-52); VENOUS PH 7.37 (7.310-7.410)
[2022-05-09 00:33] LABS: HEMATOCRIT 35.2 % (35.4-49); MCH 25.9 pg (25.7-33.7); MCHC 34.3 g/dl (32.0-35.9); MEAN CELL VOLUME 75.5 fl (80-96); MEAN PLT VOLUME 8.6 fl (7.5-11.1); PLATELET COUNT 266 10^3/uL (134-434); RBC 4.66 M/mm3 (4.00-5.60); RDW 20.1 % (11.9-15.9); WHITE BLOOD COUNT 14.8 K/mm3 (4.0-10.0)
[2022-05-09 00:39] LABS: INR 1.86 (0.83-1.09); PROTHROMBIN TIME (PATIENT) 21.4 SEC (9.7-13.0)
[2022-05-09 00:41] LABS: ACTIVATED PTT 35.1 SECONDS (25.2-36.5)
[2022-05-09 00:56] LABS: EPI CELLS >36 /uL (0-25.1); HYALINE CASTS 2 /uL (0-3.1); URINE APPEARANCE TURBID; URINE BACTERIA 1 /uL (0-1359); URINE BILIRUBIN NEGATIVE (NEGATIVE); URINE COLOR YELLOW; URINE GLUCOSE (UA) 3+ (NEGATIVE); URINE KETONE TRACE (NEGATIVE); URINE LEUK ESTERASE NEGATIVE (NEGATIVE); URINE NITRITE NEGATIVE (NEGATIVE); URINE PROTEIN 4+ (NEGATIVE); URINE RBC 10 /uL (0-23.9); URINE UROBILINOGEN 0.2 mg/dL (0.2-1.0)
[2022-05-09] MEDS ORDERED: morphine SULFATE 4 MG/ML VIAL ONE (01:19)
[2022-05-09 01:39] LABS: LACTIC ACID 2.6 mmol/L (0.4-2.0)
[2022-05-09 01:54] LABS: CHLORIDE 87 mmol/L (98-107); SODIUM 127 mmol/L (136-145)
[2022-05-09 01:56] LABS: CALCIUM 9.4 mg/dL (8.5-10.1)
[2022-05-09 01:57] LABS: ALBUMIN 2.8 g/dl (3.4-5.0); ANION GAP 21 MMOL/L (8-16); BLOOD UREA NITROGEN 88.1 mg/dL (7-18); CO2 19 mmol/L (21-32)
[2022-05-09 02:00] LABS: CREATININE 3.6 mg/dL (0.55-1.3); SGOT/AST 26 U/L (15-37); SGPT/ALT 15 U/L (13-61)
[2022-05-09 02:01] LABS: TOT PROT 7.8 g/dl (6.4-8.2)
[2022-05-09 02:03] LABS: ALK PHOS 70 U/L (45-117); BILIRUBIN,TOTAL 1.2 mg/dL (0.2-1)
[2022-05-09] MEDS ORDERED: INSULIN REGULAR HUMAN 100 UNITS/ML *VIAL IVPUSH ONE (02:20)
[2022-05-09] MEDS ORDERED: SODIUM CHLORIDE 0.9% 500 ML INFUS.BAG IV ONE (02:20)
[2022-05-09 02:37] LABS: GLUCOSE,RANDOM 412 mg/dL (74-106)
[2022-05-09 02:45] LABS: ANISOCYTOSIS 2+; MACROCYTOSIS 0; OVALOCYTE 2+; TEAR DROP CELLS 1+
[2022-05-09 03:02] LABS: URINE WBC 153 /uL (0-25.8)
[2022-05-09] MEDS ORDERED: CLINDAMYCIN 900 MG PREMIX IVPB 900 MG/50 ML BAG IVPB ONE ×4 (05:34→21:13)
[2022-05-09] MEDS: CLINDAMYCIN 900 MG PREMIX IVPB 900 MG/50 ML BAG IVPB SCH ×4 (05:40→21:17)
[2022-05-09] MEDS ORDERED: INSULIN REGULAR HUMAN 100 UNITS/ML *VIAL* (FOR IVP) IVPUSH ONE ×3 (06:06→06:07)
[2022-05-09] MEDS ORDERED: DEXTROSE 50%-WATER 25 GM/50 ML DISP.SYRIN IVPUSH PRN ×2 (06:07→22:43)
[2022-05-09 06:13] LABS: CALCIUM 8.4 mg/dL (8.5-10.1)
[2022-05-09 06:14] LABS: BLOOD UREA NITROGEN 91.2 mg/dL (7-18)
[2022-05-09] MEDS ORDERED: INSULIN REGULAR 100 UNITS in SODIUM CHLORIDE 99 ML IVPB SCH ×4 (06:15→23:00)
[2022-05-09 06:17] LABS: CREATININE 3.7 mg/dL (0.55-1.3)
[2022-05-09] MEDS ORDERED: SODIUM CHLORIDE 1,000 ML IV STA (08:48)
[2022-05-09] MEDS ORDERED: PIPERACILLIN/TAZOB 2.25 GM 2.25 GM in DEXTROSE 5%-WATER - 50 ML IVPB SCH (09:00)
[2022-05-09] MEDS ORDERED: INSULIN (NOVOLOG) ASPART 100 UNITS/ML 10ML VIAL SQ ONE (09:00)
[2022-05-09] MEDS ORDERED: POTASSIUM CHLORIDE ORAL LIQUID 20 MEQ/15 ML PO ONE (09:02)
[2022-05-09] MEDS ORDERED: INSULIN REGULAR HUMAN 100 UNITS/ML *VIAL ONE (09:11)
[2022-05-09] MEDS ORDERED: SODIUM CHLORIDE 1,000 ML IV SCH ×3 (09:15→22:43)
[2022-05-09 10:17] LABS: CALCIUM 8.5 mg/dL (8.5-10.1)
[2022-05-09 10:18] LABS: ALBUMIN 2.4 g/dl (3.4-5.0); BLOOD UREA NITROGEN 91.2 mg/dL (7-18); MAGNESIUM 2.1 mg/dL (1.8-2.4)
[2022-05-09 10:21] LABS: CREATININE 3.8 mg/dL (0.55-1.3); PHOSPHOROUS 6.7 mg/dL (2.5-4.9)
[2022-05-09 10:22] LABS: BILIRUBIN,TOTAL 0.8 mg/dL (0.2-1); TOT PROT 7.1 g/dl (6.4-8.2)
[2022-05-09] MEDS ORDERED: PIPERACILLIN/TAZOB 2.25 GM 2.25 GM/50 ML BAG IVPB ONE ×3 (10:32→21:13)
[2022-05-09] MEDS ORDERED: CLINDAMYCIN 600MG PREMIX IVPB 600 MG/50 ML BAG IVPB ONE (10:33)
[2022-05-09] MEDS ORDERED: DEXTROSE 5%-NORMAL SALINE 1,000 ML IV SCH ×2 (12:30→23:45)
[2022-05-09 13:45] LABS: CALCIUM 8.6 mg/dL (8.5-10.1)
[2022-05-09 13:46] LABS: BLOOD UREA NITROGEN 93.8 mg/dL (7-18); MAGNESIUM 2.3 mg/dL (1.8-2.4)
[2022-05-09 13:49] LABS: CREATININE 3.9 mg/dL (0.55-1.3); PHOSPHOROUS 4.8 mg/dL (2.5-4.9)
[2022-05-09] MEDS: INSULIN REGULAR 100 UNITS in SODIUM CHLORIDE 99 ML IVPB SCH ×3 (14:05→19:02)
[2022-05-09] MEDS ORDERED: DEXTROSE 50%-WATER - 25 GM/50 ML VIAL IVPUSH ONE (14:44)
[2022-05-09] MEDS ORDERED: DEXTROSE 50%-WATER 25 GM/50 ML DISP.SYRIN ONE (15:10)
[2022-05-09] MEDS ORDERED: INSULIN (LEVEMIR) 100 UNITS/ML UNITS SQ ONE ×2 (15:17→15:33)
[2022-05-09 15:21] LABS: VENOUS BASE EXCESS -4.3 mmol/L (-2-2); VENOUS O2 SATURATION 75.3 % (70-80); VENOUS PCO2 43.4 mmHg (38-52); VENOUS PH 7.317 (7.310-7.410)
[2022-05-09] MEDS ORDERED: DEXTROSE 5%-0.45% SALINE 1,000 ML IV SCH ×2 (15:30→22:43)
[2022-05-09] MEDS ORDERED: VANCOMYCIN HCL 1,500 MG in DEXTROSE 5%-WATER - 500 ML IVPB SCH (16:00)
[2022-05-09 16:45] LABS: CALCIUM 8.6 mg/dL (8.5-10.1)
[2022-05-09 16:46] LABS: BLOOD UREA NITROGEN 99.8 mg/dL (7-18); MAGNESIUM 2.3 mg/dL (1.8-2.4)
[2022-05-09 16:49] LABS: CREATININE 4.1 mg/dL (0.55-1.3); PHOSPHOROUS 4.4 mg/dL (2.5-4.9)
[2022-05-09] MEDS: PIPERACILLIN/TAZOB 2.25 GM 2.25 GM in DEXTROSE 5%-WATER - 50 ML IVPB SCH ×2 (18:03→21:17)
[2022-05-09] MEDS: D5-1/2NS+20 MEQ KCL - 20 MEQ/1,000 ML INFUS.BAG IV SCH (20:15)
[2022-05-09] MEDS ORDERED: MUPIROCIN 2% TOPICAL OINTMENT FOR DECOLONIZATION NS SCH (22:00)
[2022-05-09] MEDS ORDERED: CHLORHEXIDINE GLUCONATE 4% CLEANSER FOR DECOLONIZATION TP SCH ×2 (22:00→22:45)
[2022-05-09 22:27] LABS: CHLORIDE 98 mmol/L (98-107); SODIUM 133 mmol/L (136-145)
[2022-05-09 22:29] LABS: ANION GAP 14 MMOL/L (8-16); CALCIUM 8.6 mg/dL (8.5-10.1); CO2 20 mmol/L (21-32); GLUCOSE,RANDOM 233 mg/dL (74-106); MAGNESIUM 2.3 mg/dL (1.8-2.4)
[2022-05-09 22:33] LABS: CREATININE 4.8 mg/dL (0.55-1.3); PHOSPHOROUS 4.6 mg/dL (2.5-4.9)
[2022-05-09 22:56] LABS: BLOOD UREA NITROGEN 105.7 mg/dL (7-18)
[2022-05-09] MEDS: ACETAMINOPHEN 1000 MG/100 ML BAG IVPB PRN (23:40)
[2022-05-10] MEDS ORDERED: VANCOMYCIN 1 GM/200 ML PREMIX BAG (RESTRICTED TO ID ONLY) IVPB SCH ×3 (01:00→12:00)
[2022-05-10] MEDS: PIPERACILLIN/TAZOB 2.25 GM 2.25 GM in DEXTROSE 5%-WATER - 50 ML IVPB SCH ×4 (02:05→22:15)
[2022-05-10] MEDS: CLINDAMYCIN 900 MG PREMIX IVPB 900 MG/50 ML BAG IVPB SCH ×4 (02:37→21:15)
[2022-05-10] MEDS ORDERED: INSULIN (LEVEMIR) 100 UNITS/ML UNITS SQ SCH ×3 (07:00→08:00)
[2022-05-10 07:41] LABS: HEMATOCRIT 32.1 % (35.4-49); HEMOGLOBIN 10.7 GM/dL (11.7-16.9); MCH 25.4 pg (25.7-33.7); MCHC 33.4 g/dl (32.0-35.9); MEAN CELL VOLUME 76.2 fl (80-96); MEAN PLT VOLUME 8.5 fl (7.5-11.1); PLATELET COUNT 198 10^3/uL (134-434); RBC 4.21 M/mm3 (4.00-5.60); RDW 20.4 % (11.9-15.9); WHITE BLOOD COUNT 9.9 K/mm3 (4.0-10.0)
[2022-05-10] MEDS: D5-1/2NS+20 MEQ KCL - 20 MEQ/1,000 ML INFUS.BAG IV SCH (08:10)
[2022-05-10 08:48] LABS: CHLORIDE 101 mmol/L (98-107); SODIUM 135 mmol/L (136-145)
[2022-05-10 09:06] LABS: CALCIUM 8.1 mg/dL (8.5-10.1)
[2022-05-10 09:07] LABS: ANION GAP 17 MMOL/L (8-16); CO2 17 mmol/L (21-32); GLUCOSE,RANDOM 127 mg/dL (74-106); MAGNESIUM 2.4 mg/dL (1.8-2.4)
[2022-05-10] MEDS: MUPIROCIN 2% TOPICAL OINTMENT FOR DECOLONIZATION NS SCH ×2 (09:07→22:13)
[2022-05-10 09:10] LABS: CREATININE 5.4 mg/dL (0.55-1.3); PHOSPHOROUS 8.3 mg/dL (2.5-4.9)
[2022-05-10 09:31] LABS: BLOOD UREA NITROGEN 109.9 mg/dL (7-18)
[2022-05-10] MEDS ORDERED: MUPIROCIN 2% TOPICAL OINTMENT FOR DECOLONIZATION NS SCH (10:00)
[2022-05-10] MEDS ORDERED: VANCOMYCIN 1 GM in D5W (PRE-DOCKED) 1,000 MG/250 ML IVPB SCH (10:00)
[2022-05-10] MEDS ORDERED: SODIUM CHLORIDE 0.45%/POT 20 MEQ/1,000 ML INFUS.BAG IV SCH (12:00)
[2022-05-10] MEDS ORDERED: VANCOMYCIN/WATER FOR INJ (PEG) 1,000 MG/200 ML BAG IVPB SCH (13:00)
[2022-05-10] MEDS ORDERED: HEPARIN NA (PORCINE) 5,000 UNITS/ML 1ML VIAL IVPUSH ONE (13:55)
[2022-05-10] MEDS ORDERED: HEPARIN NA (PORCINE) 5,000 UNITS/ML 1ML VIAL IVPUSH PRN ×2 (13:55)
[2022-05-10] MEDS: AMIODARONE HCL 200 MG TABLET PO SCH (14:44)
[2022-05-10] MEDS ORDERED: HEPARIN - 25,000 UNIT in SODIUM CHLORIDE 495 ML IV SCH (15:00)
[2022-05-10] MEDS: INSULIN SLIDING SCALE (NOVOLOG) 1 VIAL SQ SCH ×2 (16:02→22:26)
[2022-05-10 17:38] LABS: CHLORIDE 97 mmol/L (98-107); SODIUM 133 mmol/L (136-145)
[2022-05-10 17:40] LABS: CALCIUM 8.1 mg/dL (8.5-10.1)
[2022-05-10 17:41] LABS: ANION GAP 20 MMOL/L (8-16); CO2 16 mmol/L (21-32); GLUCOSE,RANDOM 188 mg/dL (74-106)
[2022-05-10 17:43] LABS: SGPT/ALT 34 U/L (13-61)
[2022-05-10 17:44] LABS: CREATININE 5.8 mg/dL (0.55-1.3); SGOT/AST 127 U/L (15-37)
[2022-05-10 17:45] LABS: BILIRUBIN,TOTAL 0.5 mg/dL (0.2-1); TOT PROT 6.2 g/dl (6.4-8.2)
[2022-05-10 17:46] LABS: ALK PHOS 54 U/L (45-117)
[2022-05-10 17:47] LABS: ALBUMIN 1.9 g/dl (3.4-5.0)
[2022-05-10] MEDS: LACTATED RINGERS SOLUTION 1,000 ML/1,000 ML INFUS.BAG IV SCH (19:00)
[2022-05-10] MEDS: CHLORHEXIDINE GLUCONATE 4% CLEANSER FOR DECOLONIZATION TP SCH (22:13)
[2022-05-10] MEDS: ACETAMINOPHEN 1000 MG/100 ML BAG IVPB PRN (22:15)
[2022-05-11] MEDS ORDERED: VANCOMYCIN 1 GM/200 ML PREMIX BAG (RESTRICTED TO ID ONLY) IVPB SCH (01:00)
[2022-05-11] MEDS: CLINDAMYCIN 900 MG PREMIX IVPB 900 MG/50 ML BAG IVPB SCH ×2 (02:08→09:44)
[2022-05-11] MEDS: INSULIN SLIDING SCALE (NOVOLOG) 1 VIAL SQ SCH ×4 (06:14→21:56)
[2022-05-11] MEDS: PIPERACILLIN/TAZOB 2.25 GM 2.25 GM in DEXTROSE 5%-WATER - 50 ML IVPB SCH (06:14)
[2022-05-11 08:11] LABS: HEMATOCRIT 31.2 % (35.4-49); HEMOGLOBIN 10.4 GM/dL (11.7-16.9); MCH 25.2 pg (25.7-33.7); MCHC 33.3 g/dl (32.0-35.9); MEAN CELL VOLUME 75.5 fl (80-96); MEAN PLT VOLUME 8.6 fl (7.5-11.1); PLATELET COUNT 213 10^3/uL (134-434); RBC 4.13 M/mm3 (4.00-5.60); RDW 20.8 % (11.9-15.9); WHITE BLOOD COUNT 12.2 K/mm3 (4.0-10.0)
[2022-05-11] MEDS: AMIODARONE HCL 200 MG TABLET PO SCH (09:44)
[2022-05-11 10:11] LABS: ANISOCYTOSIS 2+; MACROCYTOSIS 0
[2022-05-11 11:38] LABS: ALBUMIN 1.9 g/dl (3.4-5.0); ALK PHOS 59 U/L (45-117); ANION GAP 21 MMOL/L (8-16); BILIRUBIN,TOTAL 0.5 mg/dL (0.2-1); CALCIUM 7.6 mg/dL (8.5-10.1); CHLORIDE 97 mmol/L (98-107); CO2 13 mmol/L (21-32); GLUCOSE,RANDOM 289 mg/dL (74-106); MAGNESIUM 2.5 mg/dL (1.8-2.4); SGOT/AST 119 U/L (15-37); SGPT/ALT 41 U/L (13-61); SODIUM 131 mmol/L (136-145); TOT PROT 6.3 g/dl (6.4-8.2)
[2022-05-11] MEDS ORDERED: CALCIUM GLUCONATE 10% - 1,000 MG/10 ML VIAL ONE (11:58)
[2022-05-11] MEDS: INSULIN REGULAR HUMAN 100 UNITS/ML *VIAL IVPUSH ONE ×2 (12:03→16:14)
[2022-05-11] MEDS: CEFAZOLIN SODIUM 2 GM in DEXTROSE 5%-WATER 100 ML IVPB SCH ×2 (12:03→21:45)
[2022-05-11] MEDS: MUPIROCIN 2% TOPICAL OINTMENT FOR DECOLONIZATION NS SCH ×2 (12:04→21:46)
[2022-05-11] MEDS: LACTATED RINGERS SOLUTION 1,000 ML/1,000 ML INFUS.BAG IV SCH ×2 (12:04→21:46)
[2022-05-11] MEDS ORDERED: CALCIUM GLUCONATE 10% - 1,000 MG/10 ML VIAL IVPUSH ONE (12:15)
[2022-05-11] MEDS ORDERED: DEXTROSE 50%-WATER 25 GM/50 ML DISP.SYRIN IVPUSH ONE (12:15)
[2022-05-11 12:19] LABS: PHOSPHOROUS QNS mg/dL (2.5-4.9)
[2022-05-11] MEDS ORDERED: SODIUM CHLORIDE 250 ML IV PRN (13:09)
[2022-05-11] MEDS ORDERED: SODIUM BICARBONATE 4.2% 5 MEQ/10 ML DISP.SYRIN IVPUSH ONE (13:11)
[2022-05-11] MEDS ORDERED: SODIUM BICARBONATE 8.4% 50 MEQ/50 ML DISP.SYRIN IVPUSH ONE (14:32)
[2022-05-11 15:40] VITALS: BMI 38.1
[2022-05-11] MEDS ORDERED: HEPARIN NA (PORCINE) 5,000 UNITS/ML 1ML VIAL IVPUSH PRN ×2 (21:36)
[2022-05-11] MEDS ORDERED: HEPARIN INFUSION - 25,000 UNITS/500 ML INFUS.BAG IVPB SCH (21:45)
[2022-05-11] MEDS: CHLORHEXIDINE GLUCONATE 4% CLEANSER FOR DECOLONIZATION TP SCH (21:46)
[2022-05-11] MEDS ORDERED: MORPHINE SULFATE/0.9% NACL/PF 100 MG/100 ML BAG IVPB SCH (22:00)
[2022-05-12] MEDS ORDERED: SODIUM CHLORIDE 250 ML IV PRN (06:50)
[2022-05-12] MEDS: INSULIN SLIDING SCALE (NOVOLOG) 1 VIAL SQ SCH ×4 (06:57→22:11)
[2022-05-12 09:01] LABS: HEMATOCRIT 27.1 % (35.4-49); HEMOGLOBIN 9.2 GM/dL (11.7-16.9); MCH 25.2 pg (25.7-33.7); MEAN CELL VOLUME 74.1 fl (80-96); PLATELET COUNT 196 10^3/uL (134-434); RBC 3.66 M/mm3 (4.00-5.60); RDW 20.9 % (11.9-15.9); WHITE BLOOD COUNT 11.7 K/mm3 (4.0-10.0)
[2022-05-12 09:16] LABS: LACTIC ACID 3.1 mmol/L (0.4-2.0)
[2022-05-12 09:21] LABS: ALBUMIN 1.6 g/dl (3.4-5.0); CALCIUM 7.3 mg/dL (8.5-10.1)
[2022-05-12 09:22] LABS: MAGNESIUM 2.1 mg/dL (1.8-2.4)
[2022-05-12 09:24] LABS: CREATININE 5.3 mg/dL (0.55-1.3)
[2022-05-12 09:25] LABS: PHOSPHOROUS 7.7 mg/dL (2.5-4.9)
[2022-05-12 09:26] LABS: BILIRUBIN,TOTAL 0.3 mg/dL (0.2-1); TOT PROT 5.5 g/dl (6.4-8.2)
[2022-05-12 09:32] LABS: BLOOD UREA NITROGEN 81.9 mg/dL (7-18)
[2022-05-12] MEDS: CEFAZOLIN SODIUM 2 GM in DEXTROSE 5%-WATER 100 ML IVPB SCH ×2 (09:39→21:24)
[2022-05-12] MEDS: AMIODARONE HCL 200 MG TABLET PO SCH (09:39)
[2022-05-12] MEDS: MUPIROCIN 2% TOPICAL OINTMENT FOR DECOLONIZATION NS SCH (12:07)
[2022-05-12] MEDS ORDERED: LACTATED RINGERS SOLUTION 1,000 ML/1,000 ML INFUS.BAG IV SCH (16:12)
[2022-05-12] MEDS ORDERED: DEXTROSE 50%-WATER 25 GM/50 ML DISP.SYRIN IVPUSH PRN (16:12)
[2022-05-12] MEDS ORDERED: HEPARIN NA (PORCINE) 5,000 UNITS/ML 1ML VIAL IVPUSH PRN (16:12)
[2022-05-12] MEDS: HEPARIN INFUSION - 25,000 UNITS/500 ML INFUS.BAG IVPB SCH (17:39)
[2022-05-12 21:04] LABS: HEMATOCRIT 27.3 % (35.4-49); HEMOGLOBIN 9.1 GM/dL (11.7-16.9); MCH 24.8 pg (25.7-33.7); MCHC 33.2 g/dl (32.0-35.9); MEAN CELL VOLUME 74.9 fl (80-96); PLATELET COUNT 181 10^3/uL (134-434); RBC 3.65 M/mm3 (4.00-5.60); WHITE BLOOD COUNT 12.7 K/mm3 (4.0-10.0)
[2022-05-12] MEDS: PANTOPRAZOLE SODIUM 40 MG VIAL IVPUSH SCH (21:24)
[2022-05-13 06:49] LABS: HEMATOCRIT 29.3 % (35.4-49); HEMOGLOBIN 9.9 GM/dL (11.7-16.9); MCH 25.3 pg (25.7-33.7); MCHC 33.8 g/dl (32.0-35.9); MEAN CELL VOLUME 74.9 fl (80-96); MEAN PLT VOLUME 8.8 fl (7.5-11.1); PLATELET COUNT 213 10^3/uL (134-434); RBC 3.92 M/mm3 (4.00-5.60); RDW 20.9 % (11.9-15.9)
[2022-05-13] MEDS ORDERED: INSULIN (NOVOLOG) ASPART 100 UNITS/ML 10ML VIAL ONE ×2 (07:58→12:06)
[2022-05-13] MEDS: INSULIN SLIDING SCALE (NOVOLOG) 1 VIAL SQ SCH ×4 (08:05→23:06)
[2022-05-13 09:22] LABS: ALBUMIN 1.8 g/dl (3.4-5.0); BLOOD UREA NITROGEN 95.8 mg/dL (7-18); CALCIUM 7.6 mg/dL (8.5-10.1); MAGNESIUM 2.2 mg/dL (1.8-2.4)
[2022-05-13 09:25] LABS: PHOSPHOROUS 8.4 mg/dL (2.5-4.9)
[2022-05-13 09:26] LABS: CREATININE 6.5 mg/dL (0.55-1.3)
[2022-05-13 09:27] LABS: BILIRUBIN,TOTAL 0.3 mg/dL (0.2-1); TOT PROT 6.2 g/dl (6.4-8.2)
[2022-05-13] MEDS ORDERED: SODIUM CHLORIDE 250 ML IV PRN ×2 (09:33→09:38)
[2022-05-13] MEDS: AMIODARONE HCL 200 MG TABLET PO SCH (09:44)
[2022-05-13] MEDS: CEFAZOLIN SODIUM 2 GM in DEXTROSE 5%-WATER 100 ML IVPB SCH ×2 (09:44→23:04)
[2022-05-13] MEDS: PANTOPRAZOLE SODIUM 40 MG VIAL IVPUSH SCH ×2 (09:45→23:03)
[2022-05-13] MEDS: INSULIN (LEVEMIR) 100 UNITS/ML UNITS SQ SCH ×2 (10:13→23:06)
[2022-05-13] MEDS ORDERED: traMADol HCL 50 MG TABLET PO PRN (10:22)
[2022-05-13] MEDS ORDERED: ACETAMINOPHEN 500 MG TABLET (FP) PO PRN (10:22)
[2022-05-13] MEDS: HEPARIN NA (PORCINE) 5,000 UNITS/ML 1ML VIAL IVPUSH PRN (13:57)
[2022-05-13] MEDS ORDERED: LACTATED RINGERS SOLUTION 1,000 ML/1,000 ML INFUS.BAG IV SCH ×2 (15:22→15:30)
[2022-05-13] MEDS ORDERED: SODIUM CHLORIDE 1,000 ML IV SCH (15:30)
[2022-05-13 23:14] LABS: BASO % 0.2 % (0-2.0); EOS % 1.5 % (0-4.5); HEMATOCRIT 27.3 % (35.4-49); HEMOGLOBIN 9.1 GM/dL (11.7-16.9); LYMPH % 3.9 % (8-40); MCH 24.8 pg (25.7-33.7); MCHC 33.2 g/dl (32.0-35.9); MEAN CELL VOLUME 74.6 fl (80-96); MONO % 7.1 % (3.8-10.2); NEUT % 87.3 % (42.8-82.8); PLATELET COUNT 209 10^3/uL (134-434); RBC 3.66 M/mm3 (4.00-5.60); RDW 20.9 % (11.9-15.9); WHITE BLOOD COUNT 13.5 K/mm3 (4.0-10.0)
[2022-05-14] MEDS: HEPARIN INFUSION - 25,000 UNITS/500 ML INFUS.BAG IVPB SCH (01:00)
[2022-05-14] MEDS: HEPARIN NA (PORCINE) 5,000 UNITS/ML 1ML VIAL IVPUSH PRN ×2 (01:30→08:07)
[2022-05-14] MEDS: INSULIN (LEVEMIR) 100 UNITS/ML UNITS SQ SCH ×2 (06:38→21:55)
[2022-05-14] MEDS: INSULIN SLIDING SCALE (NOVOLOG) 1 VIAL SQ SCH ×4 (06:38→21:54)
[2022-05-14 08:12] LABS: CHLORIDE 99 mmol/L (98-107); SODIUM 137 mmol/L (136-145)
[2022-05-14 08:19] LABS: HEMATOCRIT 26.7 % (35.4-49); HEMOGLOBIN 8.9 GM/dL (11.7-16.9); MCHC 33.4 g/dl (32.0-35.9); MEAN PLT VOLUME 8.4 fl (7.5-11.1); PLATELET COUNT 212 10^3/uL (134-434); RBC 3.56 M/mm3 (4.00-5.60); RDW 20.6 % (11.9-15.9); WHITE BLOOD COUNT 13.1 K/mm3 (4.0-10.0)
[2022-05-14 08:20] LABS: ALBUMIN 1.5 g/dl (3.4-5.0); ANION GAP 11 MMOL/L (8-16); CALCIUM 7.4 mg/dL (8.5-10.1); CO2 27 mmol/L (21-32); GLUCOSE,RANDOM 180 mg/dL (74-106)
[2022-05-14 08:23] LABS: PHOSPHOROUS 6.1 mg/dL (2.5-4.9); SGOT/AST 28 U/L (15-37)
[2022-05-14 08:24] LABS: BILIRUBIN,TOTAL 0.7 mg/dL (0.2-1)
[2022-05-14 08:25] LABS: TOT PROT 5.8 g/dl (6.4-8.2)
[2022-05-14 08:26] LABS: ALK PHOS 68 U/L (45-117)
[2022-05-14 08:45] LABS: BLOOD UREA NITROGEN 59.4 mg/dL (7-18); SGPT/ALT < 6 U/L (13-61)
[2022-05-14] MEDS ORDERED: ROSUVASTATIN CA 40 MG TABLET PO SCH (10:00)
[2022-05-14] MEDS: PANTOPRAZOLE SODIUM 40 MG VIAL IVPUSH SCH (10:15)
[2022-05-14] MEDS: AMIODARONE HCL 200 MG TABLET PO SCH (10:15)
[2022-05-14] MEDS: CEFAZOLIN SODIUM 2 GM in DEXTROSE 5%-WATER 100 ML IVPB SCH ×2 (10:15→21:44)
[2022-05-14] MEDS: oxyCODONE HCL 5 MG TABLET PO PRN ×2 (10:34→21:44)
[2022-05-14] MEDS ORDERED: ACETAMINOPHEN 1000 MG/100 ML BAG IVPB ONE (13:01)
[2022-05-14] MEDS: APIXABAN 5 MG TABLET PO SCH (21:44)
[2022-05-14] MEDS: ROSUVASTATIN CA 10 MG TABLET PO SCH (21:44)
[2022-05-15] MEDS: INSULIN (LEVEMIR) 100 UNITS/ML UNITS SQ SCH ×2 (06:02→22:06)
[2022-05-15] MEDS: INSULIN SLIDING SCALE (NOVOLOG) 1 VIAL SQ SCH ×4 (06:03→22:05)
[2022-05-15 07:17] LABS: MCH 24.9 pg (25.7-33.7); MCHC 33.3 g/dl (32.0-35.9); MEAN CELL VOLUME 74.7 fl (80-96); MEAN PLT VOLUME 8.1 fl (7.5-11.1); PLATELET COUNT 222 10^3/uL (134-434); RBC 3.61 M/mm3 (4.00-5.60); RDW 20.4 % (11.9-15.9); WHITE BLOOD COUNT 11.5 K/mm3 (4.0-10.0)
[2022-05-15 07:32] LABS: CALCIUM 7.6 mg/dL (8.5-10.1); MAGNESIUM 2.1 mg/dL (1.8-2.4)
[2022-05-15 07:33] LABS: BLOOD UREA NITROGEN 73.2 mg/dL (7-18)
[2022-05-15 07:36] LABS: CREATININE 5.9 mg/dL (0.55-1.3); PHOSPHOROUS 7.3 mg/dL (2.5-4.9)
[2022-05-15] MEDS: CEFAZOLIN SODIUM 2 GM in DEXTROSE 5%-WATER 100 ML IVPB SCH ×2 (09:44→21:25)
[2022-05-15] MEDS: AMIODARONE HCL 200 MG TABLET PO SCH (09:45)
[2022-05-15] MEDS: APIXABAN 5 MG TABLET PO SCH ×2 (09:45→21:25)
[2022-05-15] MEDS: PANTOPRAZOLE SODIUM 40 MG VIAL IVPUSH SCH (09:45)
[2022-05-15] MEDS: ISOSORBIDE MONONITRATE 30 MG TAB.SR.24H (FP) PO SCH (11:55)
[2022-05-15] MEDS: ROSUVASTATIN CA 10 MG TABLET PO SCH (21:25)
[2022-05-16 00:33] LABS: HEMATOCRIT 25.9 % (35.4-49); HEMOGLOBIN 8.6 GM/dL (11.7-16.9); MCH 25.2 pg (25.7-33.7); MCHC 33.4 g/dl (32.0-35.9); MEAN CELL VOLUME 75.5 fl (80-96); MEAN PLT VOLUME 8.4 fl (7.5-11.1); PLATELET COUNT 266 10^3/uL (134-434); RBC 3.43 M/mm3 (4.00-5.60); RDW 20.9 % (11.9-15.9); WHITE BLOOD COUNT 14.1 K/mm3 (4.0-10.0)
[2022-05-16] MEDS: INSULIN (LEVEMIR) 100 UNITS/ML UNITS SQ SCH ×2 (06:17→21:45)
[2022-05-16] MEDS: INSULIN SLIDING SCALE (NOVOLOG) 1 VIAL SQ SCH ×4 (06:18→21:45)
[2022-05-16 07:28] LABS: CHLORIDE 96 mmol/L (98-107); SODIUM 133 mmol/L (136-145)
[2022-05-16 07:31] LABS: ALBUMIN 1.3 g/dl (3.4-5.0); ANION GAP 15 MMOL/L (8-16); BLOOD UREA NITROGEN 74.8 mg/dL (7-18); CALCIUM 7.6 mg/dL (8.5-10.1); CO2 22 mmol/L (21-32); GLUCOSE,RANDOM 163 mg/dL (74-106)
[2022-05-16 07:34] LABS: CREATININE 6.4 mg/dL (0.55-1.3); SGOT/AST 21 U/L (15-37)
[2022-05-16 07:36] LABS: BILIRUBIN,TOTAL 0.2 mg/dL (0.2-1); TOT PROT 6.1 g/dl (6.4-8.2)
[2022-05-16 07:37] LABS: ALK PHOS 78 U/L (45-117)
[2022-05-16 07:42] LABS: BASO % 0.4 % (0-2.0); HEMATOCRIT 25.4 % (35.4-49); HEMOGLOBIN 8.5 GM/dL (11.7-16.9); LYMPH % 3.9 % (8-40); MCH 25.1 pg (25.7-33.7); MCHC 33.4 g/dl (32.0-35.9); MEAN CELL VOLUME 75.2 fl (80-96); MEAN PLT VOLUME 8.2 fl (7.5-11.1); MONO % 5.2 % (3.8-10.2); NEUT % 88.5 % (42.8-82.8); PLATELET COUNT 252 10^3/uL (134-434); RBC 3.38 M/mm3 (4.00-5.60); RDW 20.6 % (11.9-15.9)
[2022-05-16 08:03] LABS: SGPT/ALT < 6 U/L (13-61)
[2022-05-16] MEDS ORDERED: SODIUM CHLORIDE 250 ML IV PRN (08:36)
[2022-05-16 09:52] LABS: ANISOCYTOSIS 1+; MACROCYTOSIS 0
[2022-05-16] MEDS: CEFAZOLIN SODIUM 2 GM in DEXTROSE 5%-WATER 100 ML IVPB SCH ×2 (13:21→21:44)
[2022-05-16] MEDS: APIXABAN 5 MG TABLET PO SCH ×2 (13:22→21:44)
[2022-05-16] MEDS: ISOSORBIDE MONONITRATE 30 MG TAB.SR.24H (FP) PO SCH (13:22)
[2022-05-16] MEDS: PANTOPRAZOLE SODIUM 40 MG VIAL IVPUSH SCH (13:24)
[2022-05-16] MEDS: AMIODARONE HCL 200 MG TABLET PO SCH (13:26)
[2022-05-16] MEDS ORDERED: CEFAZOLIN SODIUM 2 GM VIAL ONE (21:43)
[2022-05-16] MEDS: ROSUVASTATIN CA 10 MG TABLET PO SCH (21:44)
[2022-05-17] MEDS: INSULIN SLIDING SCALE (NOVOLOG) 1 VIAL SQ SCH ×4 (06:52→21:52)
[2022-05-17] MEDS: INSULIN (LEVEMIR) 100 UNITS/ML UNITS SQ SCH ×2 (06:52→21:44)
[2022-05-17 07:20] LABS: HEMATOCRIT 24.5 % (35.4-49); HEMOGLOBIN 8.2 GM/dL (11.7-16.9); MCH 25.1 pg (25.7-33.7); MCHC 33.3 g/dl (32.0-35.9); MEAN CELL VOLUME 75.2 fl (80-96); MEAN PLT VOLUME 8.5 fl (7.5-11.1); PLATELET COUNT 270 10^3/uL (134-434); RBC 3.26 M/mm3 (4.00-5.60); RDW 20.5 % (11.9-15.9); WHITE BLOOD COUNT 11.9 K/mm3 (4.0-10.0)
[2022-05-17 07:26] LABS: CHLORIDE 98 mmol/L (98-107); SODIUM 135 mmol/L (136-145)
[2022-05-17 07:29] LABS: CALCIUM 7.9 mg/dL (8.5-10.1)
[2022-05-17 07:30] LABS: ALBUMIN 1.4 g/dl (3.4-5.0); ANION GAP 9 MMOL/L (8-16); CO2 28 mmol/L (21-32); GLUCOSE,RANDOM 136 mg/dL (74-106); MAGNESIUM 1.9 mg/dL (1.8-2.4)
[2022-05-17 07:33] LABS: CREATININE 4.7 mg/dL (0.55-1.3); PHOSPHOROUS 5.9 mg/dL (2.5-4.9); SGOT/AST 21 U/L (15-37)
[2022-05-17 07:34] LABS: BILIRUBIN,TOTAL 0.3 mg/dL (0.2-1); TOT PROT 6.3 g/dl (6.4-8.2)
[2022-05-17 07:35] LABS: ALK PHOS 82 U/L (45-117)
[2022-05-17 07:39] LABS: SGPT/ALT < 6 U/L (13-61)
[2022-05-17] MEDS: CEFAZOLIN SODIUM 2 GM in DEXTROSE 5%-WATER 100 ML IVPB SCH (09:18)
[2022-05-17] MEDS: ISOSORBIDE MONONITRATE 30 MG TAB.SR.24H (FP) PO SCH (09:19)
[2022-05-17] MEDS: APIXABAN 5 MG TABLET PO SCH ×2 (09:19→21:44)
[2022-05-17] MEDS: AMIODARONE HCL 200 MG TABLET PO SCH (09:19)
[2022-05-17] MEDS: PANTOPRAZOLE SODIUM 40 MG VIAL IVPUSH SCH (09:19)
[2022-05-17] MEDS: oxyCODONE HCL 5 MG TABLET PO PRN (14:52)
[2022-05-17] MEDS: INSULIN (NOVOLOG) ASPART 100 UNITS/ML 10ML VIAL SQ SCH (17:06)
[2022-05-17] MEDS: NAFCILLIN - 2 GM in DEXTROSE 5%-WATER 100 ML IVPB SCH ×2 (17:07→21:44)
[2022-05-17] MEDS: ROSUVASTATIN CA 10 MG TABLET PO SCH (21:44)
[2022-05-18] MEDS: NAFCILLIN - 2 GM in DEXTROSE 5%-WATER 100 ML IVPB SCH ×6 (01:33→21:13)
[2022-05-18] MEDS: INSULIN (LEVEMIR) 100 UNITS/ML UNITS SQ SCH ×2 (06:04→22:02)
[2022-05-18] MEDS: INSULIN (NOVOLOG) ASPART 100 UNITS/ML 10ML VIAL SQ SCH ×3 (06:05→15:57)
[2022-05-18] MEDS: INSULIN SLIDING SCALE (NOVOLOG) 1 VIAL SQ SCH ×4 (06:06→22:01)
[2022-05-18 06:53] LABS: HEMATOCRIT 20.7 % (35.4-49); MCH 25.8 pg (25.7-33.7); MCHC 33.4 g/dl (32.0-35.9); MEAN CELL VOLUME 77.3 fl (80-96); MEAN PLT VOLUME 8.1 fl (7.5-11.1); PLATELET COUNT 204 10^3/uL (134-434); RBC 2.68 M/mm3 (4.00-5.60); RDW 20.4 % (11.9-15.9)
[2022-05-18 07:01] LABS: HEMOGLOBIN 6.9 GM/dL (11.7-16.9)
[2022-05-18 07:17] LABS: CHLORIDE 103 mmol/L (98-107); SODIUM 136 mmol/L (136-145)
[2022-05-18 07:20] LABS: ANION GAP 9 MMOL/L (8-16); CO2 24 mmol/L (21-32); GLUCOSE,RANDOM 251 mg/dL (74-106)
[2022-05-18 07:21] LABS: ALBUMIN 1.1 g/dl (3.4-5.0); BLOOD UREA NITROGEN 53.1 mg/dL (7-18); MAGNESIUM 1.7 mg/dL (1.8-2.4)
[2022-05-18 07:24] LABS: CREATININE 4.4 mg/dL (0.55-1.3); SGOT/AST 18 U/L (15-37)
[2022-05-18 07:25] LABS: BILIRUBIN,TOTAL 0.3 mg/dL (0.2-1); TOT PROT 5.3 g/dl (6.4-8.2)
[2022-05-18 07:26] LABS: ALK PHOS 69 U/L (45-117)
[2022-05-18 07:34] LABS: CALCIUM 6.6 mg/dL (8.5-10.1); SGPT/ALT < 6 U/L (13-61)
[2022-05-18] MEDS ORDERED: MAGNESIUM SULF 50% (8.12 MEQ/2 ML-1 GM VIAL) IVPB ONE (07:45)
[2022-05-18] MEDS: AMIODARONE HCL 200 MG TABLET PO SCH (09:28)
[2022-05-18] MEDS: ISOSORBIDE MONONITRATE 30 MG TAB.SR.24H (FP) PO SCH (09:28)
[2022-05-18] MEDS: PANTOPRAZOLE SODIUM 40 MG VIAL IVPUSH SCH (09:28)
[2022-05-18 10:27] LABS: IRON SERUM 15 ug/dL (50-175); TOTAL IRON BINDING CAPACITY 122 ug/dL (250-450)
[2022-05-18 10:42] LABS: RETICULOCYTES 2.05 % (0.5-1.5)
[2022-05-18] MEDS: FUROSEMIDE 40 MG/4 ML INJECTABLE VIAL IVPUSH SCH (12:05)
[2022-05-18] MEDS ORDERED: NAFCILLIN NA 2 GM VIAL IVPB ONE (13:03)
[2022-05-18] MEDS: ACETAMINOPHEN 325 MG TABLET (FP) PO PRN (13:50)
[2022-05-18] MEDS: oxyCODONE HCL 5 MG TABLET PO PRN (13:50)
[2022-05-18] MEDS ORDERED: INSULIN (LEVEMIR) 100 UNITS/ML UNITS SQ SCH (15:46)
[2022-05-18] MEDS ORDERED: INSULIN (NOVOLOG) ASPART 100 UNITS/ML 10ML VIAL ONE (16:02)
[2022-05-18 16:08] LABS: HEMATOCRIT 26.8 % (35.4-49); HEMOGLOBIN 8.8 GM/dL (11.7-16.9); MCH 25.2 pg (25.7-33.7); MCHC 32.7 g/dl (32.0-35.9); MEAN PLT VOLUME 7.8 fl (7.5-11.1); PLATELET COUNT 281 10^3/uL (134-434); RBC 3.48 M/mm3 (4.00-5.60); RDW 20.6 % (11.9-15.9); WHITE BLOOD COUNT 13.4 K/mm3 (4.0-10.0)
[2022-05-18] MEDS: ROSUVASTATIN CA 10 MG TABLET PO SCH (21:13)
[2022-05-19] MEDS: NAFCILLIN - 2 GM in DEXTROSE 5%-WATER 100 ML IVPB SCH ×6 (02:09→21:54)
[2022-05-19] MEDS: ACETAMINOPHEN 325 MG TABLET (FP) PO PRN (02:12)
[2022-05-19] MEDS: INSULIN (LEVEMIR) 100 UNITS/ML UNITS SQ SCH ×2 (06:40→22:37)
[2022-05-19] MEDS: INSULIN (NOVOLOG) ASPART 100 UNITS/ML 10ML VIAL SQ SCH ×3 (06:41→17:13)
[2022-05-19] MEDS: INSULIN SLIDING SCALE (NOVOLOG) 1 VIAL SQ SCH ×4 (06:48→22:31)
[2022-05-19 07:21] LABS: HEMATOCRIT 26.1 % (35.4-49); HEMOGLOBIN 8.9 GM/dL (11.7-16.9); MCH 26.2 pg (25.7-33.7); MCHC 33.9 g/dl (32.0-35.9); MEAN CELL VOLUME 77.4 fl (80-96); MEAN PLT VOLUME 8.3 fl (7.5-11.1); PLATELET COUNT 258 10^3/uL (134-434); RBC 3.38 M/mm3 (4.00-5.60); RDW 20.1 % (11.9-15.9); WHITE BLOOD COUNT 10.7 K/mm3 (4.0-10.0)
[2022-05-19 07:52] LABS: CHLORIDE 95 mmol/L (98-107); SODIUM 133 mmol/L (136-145)
[2022-05-19 07:55] LABS: ANION GAP 12 MMOL/L (8-16); CO2 25 mmol/L (21-32); GLUCOSE,RANDOM 191 mg/dL (74-106); MAGNESIUM 2.2 mg/dL (1.8-2.4)
[2022-05-19 07:58] LABS: CREATININE 5.5 mg/dL (0.55-1.3); PHOSPHOROUS 8.4 mg/dL (2.5-4.9); SGOT/AST 17 U/L (15-37)
[2022-05-19 07:59] LABS: BILIRUBIN,TOTAL 0.5 mg/dL (0.2-1); TOT PROT 6.7 g/dl (6.4-8.2)
[2022-05-19 08:00] LABS: ALBUMIN 1.4 g/dl (3.4-5.0); ALK PHOS 79 U/L (45-117); CALCIUM 7.8 mg/dL (8.5-10.1); SGPT/ALT < 6 U/L (13-61)
[2022-05-19] MEDS: AMIODARONE HCL 200 MG TABLET PO SCH (09:34)
[2022-05-19] MEDS: ISOSORBIDE MONONITRATE 30 MG TAB.SR.24H (FP) PO SCH (09:34)
[2022-05-19] MEDS: PANTOPRAZOLE SODIUM 40 MG VIAL IVPUSH SCH (09:34)
[2022-05-19] MEDS: FUROSEMIDE 40 MG/4 ML INJECTABLE VIAL IVPUSH SCH (09:34)
[2022-05-19] MEDS ORDERED: INSULIN (NOVOLOG) ASPART 100 UNITS/ML 10ML VIAL ONE (10:44)
[2022-05-19] MEDS: ROSUVASTATIN CA 10 MG TABLET PO SCH (21:54)
[2022-05-20] MEDS: ACETAMINOPHEN 325 MG TABLET (FP) PO PRN (01:29)
[2022-05-20] MEDS: NAFCILLIN - 2 GM in DEXTROSE 5%-WATER 100 ML IVPB SCH ×7 (02:03→21:08)
[2022-05-20] MEDS: INSULIN (NOVOLOG) ASPART 100 UNITS/ML 10ML VIAL SQ SCH ×4 (06:21→17:14)
[2022-05-20] MEDS: INSULIN SLIDING SCALE (NOVOLOG) 1 VIAL SQ SCH ×4 (07:21→21:20)
[2022-05-20] MEDS: INSULIN (LEVEMIR) 100 UNITS/ML UNITS SQ SCH ×2 (07:23→21:20)
[2022-05-20 07:53] LABS: HEMOGLOBIN 8.4 GM/dL (11.7-16.9); MCH 25.1 pg (25.7-33.7); MCHC 32.4 g/dl (32.0-35.9); MEAN CELL VOLUME 77.5 fl (80-96); MEAN PLT VOLUME 7.8 fl (7.5-11.1); PLATELET COUNT 264 10^3/uL (134-434); RBC 3.36 M/mm3 (4.00-5.60); RDW 20.9 % (11.9-15.9)
[2022-05-20 08:19] LABS: CHLORIDE 94 mmol/L (98-107); SODIUM 132 mmol/L (136-145)
[2022-05-20 08:21] LABS: CALCIUM 7.9 mg/dL (8.5-10.1)
[2022-05-20 08:23] LABS: ALBUMIN 1.4 g/dl (3.4-5.0); ANION GAP 12 MMOL/L (8-16); BLOOD UREA NITROGEN 74.9 mg/dL (7-18); CO2 26 mmol/L (21-32); GLUCOSE,RANDOM 106 mg/dL (74-106); MAGNESIUM 2.3 mg/dL (1.8-2.4)
[2022-05-20 08:26] LABS: BILIRUBIN,TOTAL 0.7 mg/dL (0.2-1); CREATININE 5.9 mg/dL (0.55-1.3); SGOT/AST 12 U/L (15-37); TOT PROT 6.8 g/dl (6.4-8.2)
[2022-05-20 08:28] LABS: ALK PHOS 70 U/L (45-117)
[2022-05-20 08:30] LABS: SGPT/ALT < 6 U/L (13-61)
[2022-05-20] MEDS ORDERED: SODIUM CHLORIDE 250 ML IV PRN (08:45)
[2022-05-20] MEDS ORDERED: EPOETIN ALFA-EPBX 10,000 UNIT/ML VIAL SQ ONE (08:45)
[2022-05-20 08:56] LABS: PHOSPHOROUS 8.6 mg/dL (2.5-4.9)
[2022-05-20] MEDS: ALBUMIN HUMAN 25% 12.5 GM/50 ML VIAL IV SCH ×3 (10:03→12:53)
[2022-05-20] MEDS: PANTOPRAZOLE SODIUM 40 MG VIAL IVPUSH SCH (13:04)
[2022-05-20] MEDS: AMIODARONE HCL 200 MG TABLET PO SCH (13:04)
[2022-05-20] MEDS: ROSUVASTATIN CA 10 MG TABLET PO SCH (21:08)
[2022-05-20] MEDS: oxyCODONE HCL 5 MG TABLET PO PRN (21:08)
[2022-05-21 00:46] VITALS: BP 118/53; PULSE 73; RESP 21; TEMP 99
[2022-05-21] MEDS ORDERED: TORSEMIDE 100 MG TABLET PO SCH (10:00)
== END 2022-05-21 00:45 | disposition short-term general hospital (02) | DRG 871 ==
LOC: JER 22:28 → JERBED 05-09 02:47 → JICU 05-09 22:10 → J2W 05-15 00:40
PROVIDERS: ADMIT Internal Medicine; ATTEND Internal Medicine
PROC: 05HN33Z Insertion of Infusion Device into Left Internal Jugular Vein, Percutaneous Approach (ICD-10-PCS; principal; 2022-05-11)
PROC: B544ZZA Ultrasonography of Left Jugular Veins, Guidance (ICD-10-PCS; 2022-05-11)
PROC: 30233N1 Transfusion of Nonautologous Red Blood Cells into Peripheral Vein, Percutaneous Approach (ICD-10-PCS; 2022-05-18)
DX: A41.01 Sepsis due to Methicillin susceptible Staphylococcus aureus (principal); E11.10 Type 2 diabetes mellitus with ketoacidosis without coma; G93.41 Metabolic encephalopathy; N17.0 Acute kidney failure with tubular necrosis; E87.1 Hypo-osmolality and hyponatremia; I13.0 Hypertensive heart and chronic kidney disease with heart failure and stage 1 through stage 4 chronic kidney disease, or unspecified chronic kidney disease; N18.4 Chronic kidney disease, stage 4 (severe); I50.32 Chronic diastolic (congestive) heart failure; I48.92 Unspecified atrial flutter; L03.114 Cellulitis of left upper limb; E87.20 Acidosis, unspecified; E87.5 Hyperkalemia; D64.9 Anemia, unspecified; R50.9 Fever, unspecified; I45.10 Unspecified right bundle-branch block; D72.829 Elevated white blood cell count, unspecified; R00.1 Bradycardia, unspecified; I48.0 Paroxysmal atrial fibrillation; I25.10 Atherosclerotic heart disease of native coronary artery without angina pectoris; G47.33 Obstructive sleep apnea (adult) (pediatric); E78.5 Hyperlipidemia, unspecified; E11.51 Type 2 diabetes mellitus with diabetic peripheral angiopathy without gangrene; E11.22 Type 2 diabetes mellitus with diabetic chronic kidney disease; B95.61 Methicillin susceptible Staphylococcus aureus infection as the cause of diseases classified elsewhere; E66.8 Other obesity; Z68.38 Body mass index [BMI] 38.0-38.9, adult; Z95.5 Presence of coronary angioplasty implant and graft; Z89.422 Acquired absence of other left toe(s); Z89.421 Acquired absence of other right toe(s)
CPT/HCPCS: 0241U-QW; 36415; 36430; 71045-TC-FY; 73090-TC-LT-FY; 73110-TC-LT-FY; 73130-TC-LT-FY; 73200-TC-RT; 73630-TC-LT; 76882-TC-RT-FY; 80048; 80053; 81003; 82010; 82272; 82550; 82553; 82728; 82803; 82962; 83540; 83550; 83605; 83735; 84100; 84466; 84484; 85025; 85027; 85045; 85610; 85730; 86140; 86160; 86803; 86850; 86900; 86901; 86922; 87040; 87086; 87186; 87340; 93005; 93010; 93306-TC; 94660; 97162-GP; 99291; C9803-CS; G0480; J1644; J3480; P9058; Q5106; U0003; U0005